=== PATIENT | female | born 1940 | race Caucasian/White ===

== ENCOUNTER 2021-02-17 10:06 | Outpatient (REF) | payer MEDICARE, SELFPAY ==
--- NOTE | ~2021-02-17 | MM_ITS ---
EXAMINATION: MM SCREENING DIGITAL BREAST TOMOSYNTHESIS, BILATERAL CLINICAL INFORMATION: Screening. Asymptomatic. Right lumpectomy for breast cancer 2007. COMPARISON: Mammography: 12/09/2019, 11/08/2018, 11/07/2017; outside exam 11/02/2016, 10/29/[address] ([facility]). TECHNIQUE: Digital breast tomosynthesis is performed in both the craniocaudal and mediolateral oblique views along with computer-aided detection (CAD). Synthesized 2D images are generated from the tomosynthesis. FINDINGS: There are scattered areas of fibroglandular density (ACR BI-RADS breast composition Category b). Right breast post therapy changes are similar to prior exams with mild reduced breast size, stable scarring with chronic hematoma/seroma at the lumpectomy site. There are surgical clips again seen right axilla. Neither breast shows interval mass or architectural abnormality or abnormal calcifications. There are chronic mildly prominent veins in the bilateral medial breasts and scattered bilateral round and vascular calcifications. There are no significant changes from prior exams. MM/MM tomosynthesis screening BI IMPRESSION: No mammographic evidence of malignancy. Chronic stable post therapy changes right breast. ASSESSMENT: BI-RADS 2: Benign RECOMMENDATION: Routine annual mammography screening. This patient's information was entered into a reminder system with a target due date for their next mammogram.
== END 2021-02-17 10:07 | disposition home or self-care (01) ==
LOC: HO.MAMMO 10:06
PROVIDERS: Visit Provider Surgery
DX: Z12.31 Encounter for screening mammogram for malignant neoplasm of breast (principal)
CPT/HCPCS: 77063; 77067

== ENCOUNTER → 2021-03-03 10:45 | Outpatient (BNVA) | payer MEDICARE, SELFPAY | PROVIDERS: PCP Internal Medicine; Visit Provider Surgery | DX: C50.911 Malignant neoplasm of unspecified site of right female breast (principal) | CPT/HCPCS: 99212 ==

== ENCOUNTER → 2022-03-04 10:52 | Outpatient (BNVA) | payer MEDICARE, SELFPAY | PROVIDERS: PCP Internal Medicine; Visit Provider Surgery | DX: C50.911 Malignant neoplasm of unspecified site of right female breast (principal) | CPT/HCPCS: 99212 ==

== ENCOUNTER 2022-03-11 10:38 | Outpatient (REF) | payer MEDICARE, SELFPAY ==
--- NOTE | ~2022-03-11 | MM_ITS ---
EXAMINATION: MM SCREENING DIGITAL BREAST TOMOSYNTHESIS, BILATERAL CLINICAL INFORMATION: Screening. Asymptomatic. Right breast cancer status post lumpectomy, 2007. COMPARISON: Mammography: 02/17/2021, 11/10/2019, 11/08/2018, 11/07/2017 TECHNIQUE: Digital breast tomosynthesis is performed in both the craniocaudal and mediolateral oblique views along with computer-aided detection (CAD). Synthesized 2D images are generated from the tomosynthesis. FINDINGS: There are scattered areas of fibroglandular density (ACR BI-RADS breast composition Category b). There is chronic minor scarring right breast with chronic seroma approximately 2.5 cm, similar to prior exams. Right axillary clips again noted. Neither breast shows interval mass or architectural abnormality. Again, there are scattered bilateral round and vascular calcifications. No abnormal calcifications. The skin contours are smooth. MM/MM tomosynthesis screening BI IMPRESSION: -No mammographic evidence of malignancy. -Post therapy changes right breast with chronic seroma. ASSESSMENT: BI-RADS 2: Benign RECOMMENDATION: Routine annual mammography screening. This patient's information was entered into a reminder system with a target due date for their next mammogram.
== END 2022-03-11 10:39 | disposition home or self-care (01) ==
LOC: HO.MAMMO 10:38
PROVIDERS: PCP Internal Medicine; Visit Provider Surgery
DX: Z12.31 Encounter for screening mammogram for malignant neoplasm of breast (principal); Z85.3 Personal history of malignant neoplasm of breast
CPT/HCPCS: 77063; 77067

== ENCOUNTER 2023-03-14 12:43 | Outpatient (REF) | payer MEDICARE, SELFPAY ==
--- NOTE | ~2023-03-14 | MM_ITS ---
EXAMINATION: MM SCREENING DIGITAL BREAST TOMOSYNTHESIS, BILATERAL CLINICAL INFORMATION: Screening. Asymptomatic. The patient was diagnosed and treated for breast cancer in 2008. COMPARISON: Mammography: This study is compared with prior exams dating back to 2018. TECHNIQUE: Digital breast tomosynthesis is performed in both the craniocaudal and mediolateral oblique views along with computer-aided detection (CAD). Synthesized 2D images are generated from the tomosynthesis. FINDINGS: There are scattered areas of fibroglandular density (ACR BI-RADS breast composition Category b). LEFT BREAST: There is an asymmetry in the 5:00 region of the left breast. Additional mammographic imaging of this finding is advised. This should include a full lateral view of the left breast, spot compression in the CC projection and MLO spot compression of the inferior half of the breast. The areas recommended for spot compression have been delineated on the images. Sonography of this region is at the discretion of the diagnostic radiologist. RIGHT BREAST: There are postsurgical changes in the 3 to 4:00 position of the right breast. These occur as benign, dystrophic ossifications in association with a benign, 26 mm seroma. There are no mammographic signs of malignancy at the current time. MM/MM tomosynthesis screening BI IMPRESSION: Left breast asymmetry warrants additional mammographic imaging. Sonography may be performed at the discretion of the diagnostic radiologist. Posttreatment changes of the right breast. No mammographic signs of malignancy of the right breast at the current time. ASSESSMENT: BI-RADS BI-RADS 0 - Incomplete: Needs additional Imaging. RECOMMENDATION: 1. Additional views of the left breast 2. Targeted ultrasound if warranted after review of the additional views. 3. Radiology department staff will contact the patient for additional imaging. Additional Imaging required This examination should not preclude the clinical evaluation of a suspicious palpable abnormality. This patient's information was entered into a reminder system with a target due date for their next mammogram.
== END 2023-03-14 12:44 | disposition home or self-care (01) ==
LOC: HO.MAMMO 12:43
PROVIDERS: PCP Internal Medicine; Visit Provider Surgery
DX: Z12.31 Encounter for screening mammogram for malignant neoplasm of breast (principal)
CPT/HCPCS: 77063; 77067

== ENCOUNTER → 2023-03-14 13:00 | Outpatient (BNV) | payer MEDICARE, SELFPAY | PROVIDERS: PCP Internal Medicine; Visit Provider Radiology Diagnostic Radiology | DX: Z12.31 Encounter for screening mammogram for malignant neoplasm of breast (principal) | CPT/HCPCS: 77063; 77067 ==

== ENCOUNTER 2023-03-25 09:46 | Outpatient (AMB) | payer MEDICARE, SELFPAY ==
--- NOTE | 2023-03-25 09:54 | A.OFFVIS_ITS ---
Intake Vital Signs 03/25/23 10:02 Height 5 ft 2 in Weight 140 lb 6 oz BMI 25.7 BP 160/80 H Blood Pressure Location Lt brachial Position Sitting Pulse 66 Intake Visit Reasons: YEARLY BREAST EXAMINATION Intake Note: Patient is seen in office fro yearly breast exam. Pt c/o: denies any concerns at the time of visit Boat Canvas Installer Required: No Raw Stock Dyeing Machine Tender: Raw Stock Dyeing Machine Tender Present Accompanied by: Self / Same As Patient Allergies amoxicillin Allergy (Unknown, Uncoded 03/25/23 10:06) Swelling IV Contrast Allergy (Unknown, Uncoded 03/25/23 10:06) Rash Latex Allergy (Unknown, Uncoded 03/25/23 10:06) Rash Medical Tape Allergy (Unknown, Uncoded 03/25/23 10:06) Rash sulfa drugs Allergy (Unknown, Uncoded 03/25/23 10:06) Rash HPI HPI Comments History of Present Illness Details Bella Hinton is a 82 year old female patient former patient of Dr. Lund presenting for a follow up breast examination. She underwent a right partial mastectomy with sentinel node biopsy in 2007 for an invasive lobular carcinoma with DCIS, ER/[place] positive, HER2 [place]ris negative. [place] nodes were negative for metastatic disease. She subsequently underwent radiation therapy which was completed on 04/01/2008. Patient refused aromatase inhibitor therapy. Her postoperative course was complicated by hematoma and she continues to feel a lump at the site of surgery. Mammogram of 02/17/2021 reveals no significant c hanges from her prior mammogram and no mammographic evidence of malignancy (BI- RADS 2: Benign). She underwent a yearly mammogram on 03/14/2023. Radiology report is not available at the time of this visit. She denies any new breast symptoms in either breast. [facility] Medical History Arthritis Invasive ductal carcinoma of right breast Surgical History History of hysterectomy History of incisional hernia repair History of right breast biopsy History of total mastectomy of right breast (2007) Family History Mother Breast cancer Social History Alcohol intake: never Patient Tobacco Use Status: Never used Tobacco Female Reproductive History Menstrual Age of Menarche: 11 Review of Systems Const All systems reviewed & are unremarkable except as noted in HPI and below GI Reports no additional complaints Denies nipple discharge Musc Reports no additional complaints Skin/Breast Denies breast swelling, Denies breast skin changes, Reports breast pain, Reports breast mass, Denies new lesions and Denies nipple discharge Physical Exam Vital Signs: Last Vital Signs Pulse 66 03/25/23 10:02 BP 160/80 H 03/25/23 10:02 BMI result Body Mass Index 25.7 Const General: cooperative, comfortable, no acute distress, well developed, alert and awake Orientation/consciousness: patient oriented x3 Limitations: no limitations Neck Lymphatic: no lymphadenopathy noted Chest Other: Incision in the upper inner quadrant right breast is clean and intact. There is a palpable area below the incision consistent with chronic scar tissue.No new palpable mass, skin change, nipple discharge, or enlarged lymph node is appreciated. Left breast is also normal with no palpable mass, skin change, nipple discharge, or enlarged lymph nodes. Chest/axillae images: 1. Scar from prior lumpectomy right breast Resp Effort & Inspection: normal respiratory effort Skin General skin exam: no rashes or lesions noted Neuro General: patient oriented x3 Extrem General: Yes no clubbing, cyanosis or edema Assessment & Plan Assessment & Plan (1) Invasive ductal carcinoma of right breast: Code(s): C50.911 - Malignant neoplasm of unspecified site of right female breast Plan 82-year-old female returning for routine breast examination following right breast cancer surgery. Examination today reveals chronic scarring in the right breast with no new suspicious findings. She underwent a routine annual screening mammogram on 03/14/2023; unfortunately the radiology report is not available to time of this dictation. I suggested a follow-up in 1 year for routine breast examination. She is welcome to call sooner for any new concerns. Coding Level of Care Code Est Pt Level 3 (51511) Diagnoses Invasive ductal carcinoma of right breast C50.911
[2023-03-25 10:02] VITALS: BP 160/80; PULSE 66; BMI 25.7
== END 2023-03-25 10:25 | disposition home or self-care (01) ==
LOC: HO.HGS 09:46
PROVIDERS: PCP Internal Medicine; Visit Provider Surgery
DX: Z85.3 Personal history of malignant neoplasm of breast (principal)
CPT/HCPCS: 99213

== ENCOUNTER → 2023-03-25 09:46 | Outpatient (BNVA) | payer MEDICARE, SELFPAY | PROVIDERS: PCP Internal Medicine; Visit Provider Surgery | DX: C50.911 Malignant neoplasm of unspecified site of right female breast (principal) | CPT/HCPCS: 99212 ==

== ENCOUNTER 2023-04-29 14:23 | Outpatient (REF) | payer MEDICARE, SELFPAY ==
--- NOTE | ~2023-04-29 | MM_ITS ---
EXAMINATION: MM DIAGNOSTIC DIGITAL BREAST TOMOSYNTHESIS, LEFT CLINICAL INFORMATION: Evaluate 5:00 asymmetry seen on CC projections screening exam, mid depth. Localizes inferiorly on tomographic images. COMPARISON: Mammography: 03/14/2023, 03/11/2022, and dating back to 2014. TECHNIQUE: Digital breast tomosynthesis is performed. 2D images are generated from the tomosynthesis. The following views are obtained: 3-D small paddle spot CC view, and large paddle 3-D spot CC and MLO views. FINDINGS: There are scattered areas of fibroglandular density (ACR BI-RADS breast composition Category b). Additional views show complete effacement of the central inferior asymmetry, findings consistent with summation artifact. There is no persistent mass, or area of architectural distortion. Extensive vascular calcifications are noted. Results were provided to the patient at time of visit by the technologist. MM/MM tomosynthesis added views L IMPRESSION: No persistent findings suspicious of malignancy. Benign findings. Recommend the patient resume routine annual screening mammography. ASSESSMENT: BI-RADS BI-RADS 2 - Benign Findings RECOMMENDATION: 1 year F/U This patient's information was entered into a reminder system with a target due date for their next mammogram.
== END 2023-04-29 14:24 | disposition home or self-care (01) ==
LOC: HO.MAMMO 14:23
PROVIDERS: PCP Internal Medicine; Visit Provider Surgery
DX: N64.89 Other specified disorders of breast (principal)
CPT/HCPCS: 77061; 77065

== ENCOUNTER → 2023-04-29 14:30 | Outpatient (BNV) | payer MEDICARE, SELFPAY | PROVIDERS: PCP Internal Medicine; Visit Provider Radiology Diagnostic Radiology | DX: N64.89 Other specified disorders of breast (principal) | CPT/HCPCS: 77061; 77065 ==

== ENCOUNTER 2024-03-26 12:29 | Outpatient (REF) | payer MEDICARE, SELFPAY ==
--- NOTE | ~2024-03-26 | MM_ITS ---
EXAMINATION: MM SCREENING DIGITAL BREAST TOMOSYNTHESIS, BILATERAL CLINICAL INFORMATION: Screening. Asymptomatic. Patient has a history of treated right breast cancer. COMPARISON: Mammography: This study is compared with prior exams dating back to TECHNIQUE: Digital breast tomosynthesis is performed in both the craniocaudal and mediolateral oblique views along with computer-aided detection (CAD). Synthesized 2D images are generated from the tomosynthesis. FINDINGS: There are scattered areas of fibroglandular density (ACR BI-RADS breast composition Category b). In the lower inner quadrant of the left breast, at a middle depth, there is a focal asymmetry which warrants additional mammographic and targeted sonographic imaging. In the right breast, there are no significant masses, abnormal calcifications, or other abnormalities. There is right-sided postsurgical and posttreatment change. There are no suspicious findings in the right breast. MM/MM tomosynthesis screening BI IMPRESSION: Focal asymmetry of the right breast warrants additional mammographic and targeted sonographic evaluation. Postsurgical changes of the right breast. No mammographic signs of malignancy right breast. ASSESSMENT: BI-RADS BI-RADS 0 - Incomplete: Needs additional Imaging. RECOMMENDATION: 1. Additional views of the left breast 2. Targeted ultrasound is also advised. 3. Radiology department staff will contact the patient for additional imaging. Additional Imaging required This examination should not preclude the clinical evaluation of a suspicious palpable abnormality. This patient's information was entered into a reminder system with a target due date for their next mammogram.
== END 2024-03-26 12:30 | disposition home or self-care (01) ==
LOC: HO.MAMMO 12:29
PROVIDERS: Absent Provider Surgery; PCP Internal Medicine; Visit Provider Internal Medicine
DX: Z12.31 Encounter for screening mammogram for malignant neoplasm of breast (principal)
CPT/HCPCS: 77063; 77067

== ENCOUNTER → 2024-03-26 13:00 | Outpatient (BNV) | payer MEDICARE, SELFPAY | PROVIDERS: Absent Provider Surgery; PCP Internal Medicine; Visit Provider Radiology Diagnostic Radiology | DX: Z12.31 Encounter for screening mammogram for malignant neoplasm of breast (principal) | CPT/HCPCS: 77063; 77067 ==

== ENCOUNTER 2024-04-05 13:47 | Outpatient (AMB) | payer MEDICARE, OTHER, SELFPAY ==
--- NOTE | 2024-04-05 13:42 | MHC.OFFVIS ---
Vital Signs 04/05/24 13:58 Height 5 ft 2 in Weight 138 lb 14.259 oz BMI 25.4 Pulse 62 Intake Visit Reasons: Yearly breast exam Intake Note: Patient is seen in office for yearly breast exam. Pt c/o: denies any concerns regarding the breast mm:03/26/24 Process Manufacturing Engineer Required: No Agricultural Engineering Technologist: Agricultural Engineering Technologist Present Accompanied by: Self / Same As Patient Allergies amoxicillin Allergy (Unknown, Uncoded 04/05/24 13:58) Swelling IV Contrast Allergy (Unknown, Uncoded 04/05/24 13:58) Rash Latex Allergy (Unknown, Uncoded 04/05/24 13:58) Rash Medical Tape Allergy (Unknown, Uncoded 04/05/24 13:58) Rash sulfa drugs Allergy (Unknown, Uncoded 04/05/24 13:58) Rash HPI Comments Details: Bella Hinton is a 83 year old female patient former patient of Dr. Lund presenting for a follow up breast examination. She underwent a right partial mastectomy with sentinel node biopsy in 2007 for an invasive lobular carcinoma with DCIS, ER/[place] positive, HER2 Idris negative. [place] nodes were negative for metastatic disease. She subsequently underwent radiation therapy which was completed on 04/01/2008. Patient refused aromatase inhibitor therapy. Her postoperative course was complicated by hematoma and she continues to feel a lump at the site of surgery. Mammogram of 03/26/2024 revealed a focal asymmetry on the left breast for which additional imaging is required (BI-RADS 0). Patient was informed of the finding in the left breast and arrangements are being made follow-up imaging at the [facility]. She continues to feel a lump in the right breast at the site of the lumpectomy. She denies any new breast symptoms. [facility] Medical History Invasive ductal carcinoma of right breast Arthritis Surgical History History of total mastectomy of right breast (2007) History of right breast biopsy History of incisional hernia repair History of hysterectomy Family History Mother Breast cancer Social History Alcohol intake: never Patient Tobacco Use Status: Never used Tobacco Female Reproductive History Menstrual Age of Menarche: 11 Review of Systems Const All systems reviewed & are unremarkable except as noted in HPI and below GI Reports no additional complaints Denies nipple discharge Musc Reports no additional complaints Skin/Breast Denies breast swelling, Denies breast skin changes, Reports breast pain, Reports breast mass, Denies new lesions and Denies nipple discharge Physical Exam Const General: cooperative, comfortable, no acute distress, well developed, alert and awake Orientation/consciousness: patient oriented x3 Limitations: no limitations Neck Lymphatic: no lymphadenopathy noted Chest Other: Incision in the upper inner quadrant right breast is clean and intact. There is a palpable area below the incision consistent with chronic scar tissue .No new palpable mass, skin change, nipple discharge, or enlarged lymph node is appreciated. Left breast is also normal with no palpable mass, skin change, nipple discharge, or enlarged lymph nodes. Chest/axillae images: 1. Palpable scar below lumpectomy scar Resp Effort & Inspection: normal respiratory effort Skin General skin exam: no rashes or lesions noted Neuro General: patient oriented x3 Extrem General: Yes no clubbing, cyanosis or edema Assessment & Plan Assessment & Plan (1) Invasive ductal carcinoma of right breast: Code(s): C50.911 - Malignant neoplasm of unspecified site of right female breast Category: Medical Plan 83-year-old female returning for routine breast examination following right breast cancer surgery. Examination today reveals chronic scarring in the right breast with no new suspicious findings. She underwent a routine annual screening mammogram on 03/26/2024. Additional imaging is required of the left breast due to a focal asymmetry. [facility] She will follow-up in 1 year for routine breast examination, sooner as dictated by the mammograms. Coding Level of Care Code Est Pt Level 3 (75168) Diagnoses Invasive ductal carcinoma of right breast C50.911
[2024-04-05 13:58] VITALS: PULSE 62; BMI 25.4
== END 2024-04-05 14:27 | disposition home or self-care (01) ==
PROVIDERS: PCP Internal Medicine; Visit Provider Surgery
DX: Z85.3 Personal history of malignant neoplasm of breast (principal)
CPT/HCPCS: 99213

== ENCOUNTER → 2024-04-05 13:47 | Outpatient (BNVA) | payer MEDICARE, SELFPAY | PROVIDERS: PCP Internal Medicine; Visit Provider Surgery | DX: Z85.3 Personal history of malignant neoplasm of breast (principal); Z17.0 Estrogen receptor positive status [ER+]; Z90.11 Acquired absence of right breast and nipple | CPT/HCPCS: 99212 ==

== ENCOUNTER 2024-04-17 10:47 | Outpatient (REF) | payer MEDICARE, OTHER, SELFPAY ==
--- NOTE | ~2024-04-17 | US_ITS ---
EXAMINATION: MM DIAGNOSTIC DIGITAL BREAST TOMOSYNTHESIS, LEFT US BREAST LIMITED, LEFT MAMMOGRAPHY: CLINICAL INFORMATION: Callback for irregular focal mass in the left breast 7:00 axis, middle one third seen on screening exam 03/26/2024. COMPARISON: Mammography: 03/26/2024, 04/29/2023, 03/14/2023, 03/11/2022, 02/17/2021, and dating back to 2014. TECHNIQUE: Digital breast tomosynthesis is performed consisting of full-field 3-D left ML view, as well as 3-D spot compression left MLO and left CC views. Computer-aided diagnosis was used for this study. FINDINGS: There are scattered areas of fibroglandular density (ACR BI-RADS breast composition Category b). There is an irregular mass with indistinct margins and high density in the 7:00 axis of the left breast, middle one third. This measures up to 2.1 cm. It has surrounding mild desmoplasia. No abnormal lymph nodes in the left axilla. No skin changes. No additional suspicious abnormalities left breast. ULTRASOUND: CLINICAL INFORMATION: As above. COMPARISON: No prior. TECHNIQUE: Targeted sonographic evaluation was performed using a high frequency linear transducer. Selected archived documentation. FINDINGS: LEFT BREAST: There is a markedly irregular hypoechoic shadowing mass at the 7:00 axis left breast, 4 cm from the nipple, measuring 2.1 x 1.8 x 2.1 cm approximately. This demonstrates no significant internal color Doppler flow, however scant peripheral Doppler flow. There are fatty echogenic changes surrounding the mass, with mild sonographic spiculation. Finding is suspicious, and ultrasound-guided biopsy recommended. Imaging of the left axilla demonstrates no pathologic appearing lymph nodes. US/US breast LT limited mamm only IMPRESSION: -Suspicious irregular mass left breast 7:00 axis, 4 cm from the nipple, measuring 2.1 x 1.8 x 2.1 cm approximately. Recommend ultrasound-guided biopsy. -Findings and recommendations discussed with the patient in detail. OVERALL ASSESSMENT: Mammography: BI-RADS 4 - Suspicious finding Ultrasound: BI-RADS 4 - Suspicious finding RECOMMENDATION: Biopsy recommended Results were provided to the patient at time of visit by the technologist. This patient's information was entered into a reminder system with a target due date for their next mammogram.
== END 2024-04-17 10:48 | disposition home or self-care (01) ==
LOC: HO.MAMMO 10:47
PROVIDERS: PCP Internal Medicine; Visit Provider Surgery
DX: Z85.3 Personal history of malignant neoplasm of breast (principal)
CPT/HCPCS: 76642; 77061; 77065

== ENCOUNTER → 2024-04-17 11:00 | Outpatient (BNV) | payer MEDICARE, OTHER, SELFPAY | PROVIDERS: PCP Internal Medicine; Visit Provider Radiology Diagnostic Radiology | DX: R92.8 Other abnormal and inconclusive findings on diagnostic imaging of breast (principal) | CPT/HCPCS: 76642; 77065; G0279 ==

== ENCOUNTER 2024-05-17 09:37 | Outpatient (REF) | payer MEDICARE, OTHER, SELFPAY ==
--- NOTE | ~2024-05-17 | US_ITS ---
EXAMINATION: MM DIAGNOSTIC DIGITAL BREAST TOMOSYNTHESIS, PROCEDURE: ULTRASOUND-GUIDED bilateral BREAST BIOPSY CLINICAL INFORMATION: Bilateral breast masses left breast mass was called back from screening, recommended for biopsy. COMPARISON: Comparison is made with prior imaging. TECHNIQUE: The details of the procedure, as well as the risks, benefits, and alternatives to the procedure were explained to the patient in detail and all of her questions were answered, after which, written informed consent was obtained. PROCEDURE: Prior to the procedure, sonography revealed a solid irregular mass in the right breast at 2:00, and a solid irregular mass as previously seen at 7:00 in the left breast. A time-out was performed, the masses intended for biopsy were targeted and the skin of the left and right breast was then prepped and draped in the usual sterile fashion. Left: Using sonographic guidance, sterile technique, and 1% lidocaine without epinephrine for local anesthesia, a total of 4 cores were obtained through the targeted area with a 12-gauge vacuum-assisted Celero core biopsy device. At the completion of tissue sampling, a single butterfly metallic clip was deposited at the biopsy site. Right: Using sonographic guidance, sterile technique, and 1% lidocaine without epinephrine for local anesthesia, a total of 5 cores were obtained through the targeted area with a 12-gauge vacuum-assisted Celero core biopsy device. At the completion of tissue sampling, a single butterfly metallic clip was deposited at the biopsy site. An appropriate sample was obtained. The postprocedure 2-view direct digital mammogram reveals satisfactory positioning of the biopsy clips bilaterally. The patient tolerated the procedure well and, after assuring adequate hemostasis, was discharged in good condition after reviewing postbiopsy breast care instructions. Final pathology results are pending. US/US breast ndl core biopsy LT IMPRESSION: 1. Uncomplicated sonographically-guided core biopsy of the left and right breast. The 2-view direct digital postprocedure mammogram reveals satisfactory positioning of the biopsy clips. 2. Final pathology results are pending. A separate report with final recommendations will be issued once these results are made available. Electronically signed by: Jada Brewer DO 05/17/2024 03:16 PM EDT
--- NOTE | ~2024-05-17 | US_ITS ---
EXAMINATION: MM DIAGNOSTIC DIGITAL BREAST TOMOSYNTHESIS, PROCEDURE: ULTRASOUND-GUIDED bilateral BREAST BIOPSY CLINICAL INFORMATION: Bilateral breast masses left breast mass was called back from screening, recommended for biopsy. COMPARISON: Comparison is made with prior imaging. TECHNIQUE: The details of the procedure, as well as the risks, benefits, and alternatives to the procedure were explained to the patient in detail and all of her questions were answered, after which, written informed consent was obtained. PROCEDURE: Prior to the procedure, sonography revealed a solid irregular mass in the right breast at 2:00, and a solid irregular mass as previously seen at 7:00 in the left breast. A time-out was performed, the masses intended for biopsy were targeted and the skin of the left and right breast was then prepped and draped in the usual sterile fashion. Left: Using sonographic guidance, sterile technique, and 1% lidocaine without epinephrine for local anesthesia, a total of 4 cores were obtained through the targeted area with a 12-gauge vacuum-assisted Celero core biopsy device. At the completion of tissue sampling, a single butterfly metallic clip was deposited at the biopsy site. Right: Using sonographic guidance, sterile technique, and 1% lidocaine without epinephrine for local anesthesia, a total of 5 cores were obtained through the targeted area with a 12-gauge vacuum-assisted Celero core biopsy device. At the completion of tissue sampling, a single butterfly metallic clip was deposited at the biopsy site. An appropriate sample was obtained. The postprocedure 2-view direct digital mammogram reveals satisfactory positioning of the biopsy clips bilaterally. The patient tolerated the procedure well and, after assuring adequate hemostasis, was discharged in good condition after reviewing postbiopsy breast care instructions. Final pathology results are pending. US/US breast ndl core biopsy RT IMPRESSION: 1. Uncomplicated sonographically-guided core biopsy of the left and right breast. The 2-view direct digital postprocedure mammogram reveals satisfactory positioning of the biopsy clips. 2. Final pathology results are pending. A separate report with final recommendations will be issued once these results are made available. Electronically signed by: Jada Brewer DO 05/17/2024 03:16 PM EDT
--- NOTE | ~2024-05-17 | US_ITS ---
EXAMINATION: MM DIAGNOSTIC DIGITAL BREAST TOMOSYNTHESIS, PROCEDURE: ULTRASOUND-GUIDED bilateral BREAST BIOPSY CLINICAL INFORMATION: Bilateral breast masses left breast mass was called back from screening, recommended for biopsy. COMPARISON: Comparison is made with prior imaging. TECHNIQUE: The details of the procedure, as well as the risks, benefits, and alternatives to the procedure were explained to the patient in detail and all of her questions were answered, after which, written informed consent was obtained. PROCEDURE: Prior to the procedure, sonography revealed a solid irregular mass in the right breast at 2:00, and a solid irregular mass as previously seen at 7:00 in the left breast. A time-out was performed, the masses intended for biopsy were targeted and the skin of the left and right breast was then prepped and draped in the usual sterile fashion. Left: Using sonographic guidance, sterile technique, and 1% lidocaine without epinephrine for local anesthesia, a total of 4 cores were obtained through the targeted area with a 12-gauge vacuum-assisted Celero core biopsy device. At the completion of tissue sampling, a single butterfly metallic clip was deposited at the biopsy site. Right: Using sonographic guidance, sterile technique, and 1% lidocaine without epinephrine for local anesthesia, a total of 5 cores were obtained through the targeted area with a 12-gauge vacuum-assisted Celero core biopsy device. At the completion of tissue sampling, a single butterfly metallic clip was deposited at the biopsy site. An appropriate sample was obtained. The postprocedure 2-view direct digital mammogram reveals satisfactory positioning of the biopsy clips bilaterally. The patient tolerated the procedure well and, after assuring adequate hemostasis, was discharged in good condition after reviewing postbiopsy breast care instructions. Final pathology results are pending. US/US breast RT limited IMPRESSION: 1. Uncomplicated sonographically-guided core biopsy of the left and right breast. The 2-view direct digital postprocedure mammogram reveals satisfactory positioning of the biopsy clips. 2. Final pathology results are pending. A separate report with final recommendations will be issued once these results are made available. Electronically signed by: Jada Brewer DO 05/17/2024 03:16 PM EDT Workstation: [id number]
== END 2024-05-17 09:38 | disposition home or self-care (01) ==
LOC: HO.MAMMO 09:37
PROVIDERS: Pathology Cytopathology; PCP Internal Medicine; Visit Provider Surgery
DX: C50.312 Malignant neoplasm of lower-inner quadrant of left female breast (principal); N63.12 Unspecified lump in the right breast, upper inner quadrant
CPT/HCPCS: 19083; 36415; 76642; 77062; 77066; 88305; 88341; 88342; 88360; 88374; A4648; C1894

== ENCOUNTER → 2024-05-17 10:00 | Outpatient (BNV) | payer MEDICARE, OTHER, SELFPAY | PROVIDERS: PCP Internal Medicine; Visit Provider Internal Medicine | DX: C50.312 Malignant neoplasm of lower-inner quadrant of left female breast (principal); N63.12 Unspecified lump in the right breast, upper inner quadrant | CPT/HCPCS: 19083; 19084; 77066; G0279 ==

== ENCOUNTER 2024-05-22 10:57 | Outpatient (AMB) | payer MEDICARE, SELFPAY ==
--- NOTE | 2024-05-22 11:00 | A.OFFVIS_ITS ---
Vital Signs 05/22/24 11:12 Height 5 ft 2 in Weight 138 lb 6 oz BMI 25.3 BP 189/79 H Blood Pressure Location Lt brachial Position Sitting Pulse 67 Intake Visit Reasons: follow up breast bx Intake Note: Patient is seen in office for ultrasound biopsy results, following bilateral breast masses. Pt c/o: area was red due to allergy to tape, no other concerns Supervisor Plate Forming Required: No Accompanied by: Family/Other Allergies amoxicillin Allergy (Unknown, Uncoded 05/22/24 11:12) Swelling IV Contrast Allergy (Unknown, Uncoded 05/22/24 11:12) Rash Latex Allergy (Unknown, Uncoded 05/22/24 11:12) Rash Medical Tape Allergy (Unknown, Uncoded 05/22/24 11:12) Rash sulfa drugs Allergy (Unknown, Uncoded 05/22/24 11:12) Rash Medication List - Last Reconciled 05/22/24 by Alistair Tyler MD acetaminophen 1,000 mg PO TID aspirin 81 mg PO DAILY cyanocobalamin (vitamin B-12) 100 mcg PO DAILY docusate sodium 100 mg PO BID PRN ergocalciferol (vitamin D2) 1,250 mcg PO QWEEK HPI Comments Details: Bella Hinton is a 83 year old female patient former patient of Dr. Lund returning following a bilateral ultrasound-guided core biopsy. 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 [place] nodes were negative for metastatic disease. She subsequently underwent radiation therapy which was completed on 04/01/2008. Patient refused aromatase inhibitor therapy. Her postoperative course was complicated by hematoma and she continues to feel a lump at the site of surgery. Mammogram of 03/26/2024 revealed a focal asymmetry on the left breast for which additional imaging is required (BI-RADS 0). Subsequent follow-up images ultrasound confirmed bilateral suspicious findings. She subsequently underwent ultrasound-guided core biopsy of bilateral breast lesions on 05/17/2024. Subsequent pathology of the right breast revealed scar tissue however the left breast revealed invasive breast carcinoma with mixed lobular and ductal features, grade 3, ER/ID positive, HER2 Idris equivocal, FISH pending, Ki-67 high. A copy of the report was provided to the patient and her family. [facility] Medical History (Updated 05/22/24 @ 11:50 by Alistair Tyler MD) Invasive ductal carcinoma of right breast Arthritis Surgical History History of total mastectomy of right breast (2007) History of right breast biopsy History of incisional hernia repair History of hysterectomy Family History Mother Breast cancer Social History Alcohol intake: never Patient Tobacco Use Status: Never used Tobacco Female Reproductive History Menstrual Age of Menarche: 11 Review of Systems Const All systems reviewed & are unremarkable except as noted in HPI and below GI Reports no additional complaints Denies nipple discharge Musc Reports no additional complaints Skin/Breast Denies breast swelling, Denies breast skin changes, Reports breast pain, Reports breast mass, Denies new lesions and Denies nipple discharge Physical Exam Vital Signs: Last Vital Signs Pulse 67 05/22/24 11:12 BP 189/79 H 05/22/24 11:12 BMI result Body Mass Index 25.3 Const General: cooperative, comfortable, no acute distress, well developed, alert and awake Orientation/consciousness: patient oriented x3 Limitations: no limitations Neck Lymphatic: no lymphadenopathy noted Chest Other: Incision in the upper inner quadrant right breast is clean and intact. There is surrounding ecchymosis from her prior ultrasound-guided core biopsy. No palpable hematoma is appreciated. No other skin ulceration is appreciated. There is a palpable area below the incision consistent with chronic scar tissue .No new palpable mass, skin change, nipple discharge, or enlarged lymph node is appreciated. Left breast is also normal with no palpable mass, nipple discharge, or enlarged lymph nodes. There is a small area of ecchymosis at the biopsy site in the lower inner quadrant with no palpable hematoma. Resp Effort & Inspection: normal respiratory effort GI Inspection: Yes normal to inspection Skin General skin exam: no rashes or lesions noted Neuro General: patient oriented x3 Extrem General: Yes no clubbing, cyanosis or edema Assessment & Plan Assessment & Plan (1) Invasive ductal carcinoma of left breast: Code(s): C50.912 - Malignant neoplasm of unspecified site of left female breast Category: Medical (2) Invasive ductal carcinoma of right breast: Code(s): C50.911 - Malignant neoplasm of unspecified site of right female breast Category: Medical Plan 83-year-old female patient with a prior history of right breast carcinoma treated by Dr. Lund now returning with a new left breast invasive carcinoma with both lobular and ductal features, grade 3, ER/ID positive, HER2 Idris equivocal. I reviewed the pathology results with the patient and her family. Recommendations include left breast lumpectomy with localizer and left axillary sentinel node biopsy. After a review of the procedure, risks, and alternatives, she consents to the procedure. She will be scheduled as a short-stay surgery at her earliest convenience. She understands that following this procedure she will be referred back to Medical Oncology at [facility] for further evaluation discussion of adjuvant treatment options. Coding Level of Care Code Est Pt Level 4 (69821) Diagnoses Invasive ductal carcinoma of left breast C50.912 Invasive ductal carcinoma of right breast C50.911
[2024-05-22 11:12] VITALS: BP 189/79; PULSE 67; BMI 25.3
== END 2024-05-22 11:40 | disposition home or self-care (01) ==
PROVIDERS: PCP Internal Medicine; Visit Provider Surgery
DX: C50.912 Malignant neoplasm of unspecified site of left female breast (principal); C50.911 Malignant neoplasm of unspecified site of right female breast
CPT/HCPCS: 99214

== ENCOUNTER → 2024-05-22 10:57 | Outpatient (BNVA) | payer MEDICARE, SELFPAY | PROVIDERS: PCP Internal Medicine; Visit Provider Surgery | DX: C50.912 Malignant neoplasm of unspecified site of left female breast (principal); C50.911 Malignant neoplasm of unspecified site of right female breast; Z90.11 Acquired absence of right breast and nipple; Z17.0 Estrogen receptor positive status [ER+]; Z92.3 Personal history of irradiation | CPT/HCPCS: 99212 ==

== ENCOUNTER 2024-06-05 09:37 | Outpatient (REF) | payer MEDICARE, SELFPAY ==
--- NOTE | ~2024-06-05 | US_ITS ---
EXAMINATION: MM MAMMOGRAM GUIDED RFID LOCALIZATION BREAST, LEFT CLINICAL INFORMATION: Left breast 7:00 axis IDC grade 3, marked by butterfly clip, estimated size 2.1 x 1.8 x 2.1 cm by sonography, for RFID localization. COMPARISON: Left breast ultrasound-guided needle biopsy with diagnostic mammography 05/17/2024. TECHNIQUE NEEDLE LOC: Proper informed consent is obtained from the patient after discussion of the procedure, potential risks and complications, and alternatives including declining the procedure today. Patient was given an opportunity for questions. The patient appeared to understand. The patient consented to the procedure and signed the consent form. Timeout was performed. The patient did take a baby aspirin this a.m., raising risk for bleeding. Patient accepted this risk. Procedure was technically quite difficult due to very floppy breast tissue and inability of the patient to tolerate lying flat due to shoulder and back arthritis. GUIDANCE: Sonography. APPROACH: Lateral Medial. TARGET: 7:00 axis mass left breast marked by butterfly shaped clip. ANESTHESIA: carbonated lidocaine 1%: 4 mL. LOCALIZATION SYSTEM: [employer] LOCallizer Wire-Free Guidance System with 7 cm 12g needle applicator. RADIOFREQUENCY TAG: ID # [id number] DERMATOTOMY: Single 1 mm skin-juve dermatotomy performed. RF Tag ID confirmed with LOCalizer Guidance System prior to placement. The skin is prepped and local anesthesia administered. The needle is positioned and RFID tag deployed. Final images demonstrate the LOCalizer RF tag to reside within the posterior superior aspect of the mass, directly abutting the biopsy clip. This is well positioned. The patient tolerated the procedure well and had no immediate complications. Small amount of bleeding was present at at the needle puncture site, of which was resolved with direct pressure. Dressing placed and home instructions reviewed. US/US breast needle loc LT IMPRESSION: -Status post left breast RFID localization using sonography was subsequent mammography. -Final CC and ML views are appropriately labeled for OR reference. Electronically signed by: Kaveh Kahn MD 06/05/2024 11:25 AM EDT
[2024-06-05] MEDS: Lidocaine HCl 1 % 20 ML VIAL 3 ML SUBCUT (11:21)
[2024-06-05] MEDS: Sodium Bicarbonate 8.4% 50 MEQ/50 ML VIAL SUBCUT (11:21)
== END 2024-06-05 09:38 | disposition home or self-care (01) ==
LOC: HO.MAMMO 09:37
PROVIDERS: PCP Internal Medicine; Visit Provider Surgery
DX: C50.312 Malignant neoplasm of lower-inner quadrant of left female breast (principal)
CPT/HCPCS: 19285; 77065; C1819

== ENCOUNTER → 2024-06-05 10:05 | Outpatient (BNV) | payer MEDICARE, SELFPAY | PROVIDERS: PCP Internal Medicine; Visit Provider Radiology Diagnostic Radiology | DX: C50.312 Malignant neoplasm of lower-inner quadrant of left female breast (principal) | CPT/HCPCS: 19083; 77065 ==

== ENCOUNTER 2024-06-12 06:12 | Day surgery (SDC) | payer MEDICARE, SELFPAY ==
[2024-06-01 09:45] VITALS: BMI 25.2
--- NOTE | 2024-06-11 08:38 | P.CONAN_ITS ---
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) Osteoarthritis Lumbar stenosis Thyroid nodule History of diverticulosis Asthma Hx of radiation therapy Invasive ductal carcinoma of right breast Arthritis Family History Family History Mother Breast cancer Surgical History Surgical History (Updated 06/01/24 @ 09:48 by Julianna Bower, OMID) Hx of cataract extraction Hx of umbilical hernia repair Hx of kyphoplasty Hx of total knee replacement (~2020) History of total mastectomy of right breast (2007) History of right breast biopsy History of incisional hernia repair History of hysterectomy Social History Social History Are you a primary director of patient care to a significant other at home: No Do you presently have visiting nurse or other home services: No Alcohol intake: never Patient Tobacco Use Status: Never used Tobacco Use of substances other than those prescribed or required for medical reasons: No Have you been hit, kicked, punched, or otherwise hurt by someone within the past year? If so, by whom?: No Are you DNR?: No Advance Directives: No Advance Directives Information Provided: Yes Advance Directives on File: No Recently lost weight without trying: No Nutrition Risks: Surgical patient >75years Poor oral hygiene: No Meds Allergies Allergy/AdvReac Type Severity Reaction Status Date / Time IV Contrast Allergy Severe Rash/swelli Uncoded 06/01/24 09:42 ng Latex Allergy Severe Rash/bliste Uncoded 06/01/24 09:42 rs Medical Tape Allergy Severe Rash/bliste Uncoded 06/01/24 09:42 rs amoxicillin Allergy Intermediate Swelling Uncoded 06/01/24 09:42 sulfa drugs Allergy Intermediate Rash Uncoded 06/01/24 09:42 Home Medications ?Medication ?Instructions ?Recorded ?Confirmed ?Last Taken ?Type acetaminophen 500 mg tablet 1,000 mg PO TID PRN Pain 03/04/22 06/01/24 Unknown History docusate sodium 100 mg capsule 100 mg PO BID PRN constipation 03/04/22 06/01/24 Unknown History aspirin 81 mg tablet,delayed 81 mg PO DAILY 03/25/23 06/01/24 06/12/24 History release cyanocobalamin (vitamin B-12) 100 100 mcg PO DAILY 03/25/23 06/01/24 Unknown History mcg tablet ergocalciferol (vitamin D2) 1,250 1,250 mcg PO QWEEK 03/25/23 06/01/24 Unknown History mcg (50,000 unit) capsule biotin 10 mg-collagen 50 1 cap PO 06/01/24 Unknown History mg-keratin 500 fo-jjraswplpxw-kqlroxy capsule calcium carbonate 600 mg-vitamin 1 tab PO DAILY 06/01/24 06/01/24 Unknown History D3 5 mcg (200 unit) tablet diphenhydramine 25 1 tab PO BEDTIME PRN Insomnia 06/01/24 06/01/24 Unknown History mg-acetaminophen 500 mg tablet (Tylenol PM Extra Strength) lisinopril 10 mg tablet 10 mg PO DAILY 06/01/24 06/01/24 Unknown History omega 4-rvt-dti-fish oil 1,000 mg 1 cap PO TID 06/01/24 06/01/24 Unknown History (120 mg-180 mg) capsule (Fish Oil) solifenacin 5 mg tablet 5 mg PO BEDTIME 06/01/24 06/01/24 Unknown History Exam Height,Weight and Vital Signs: Height 5 ft 2 in Weight 62.596 kg Pertinent Lab Results Pertinent Lab Results: BMP 02/2024 from PCP note WNL Narrative Narrative: EKG 2022 from [facility] Ventricular Rate: 64 BPM Atrial Rate: 64 BPM P-R Interval: 190 ms QRS Duration: 96 ms Q-T Interval: 430 ms QTC Calculation(Bazett): 443 ms P Mcallen: 59 degrees R Mcallen: -21 degrees T Mcallen: 35 degrees Normal sinus rhythm Normal ECG When compared with ECG of 11-DEC-2022 16:27, Vent. 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) Osteoarthritis Lumbar stenosis Thyroid nodule History of diverticulosis Asthma Hx of radiation therapy Invasive ductal carcinoma of right breast Arthritis Family History Family History Mother Breast cancer Family history of problems with anesthesia: No Surgical History Surgical History (Updated 06/01/24 @ 09:48 by Julianna Bower RN) Hx of cataract extraction Hx of umbilical hernia repair Hx of kyphoplasty Hx of total knee replacement (~2020) History of total mastectomy of right breast (2007) History of right breast biopsy History of incisional hernia repair History of hysterectomy History of Problems with Anesthesia: No Social History Social History Are you a primary director of patient care to a significant other at home: No Do you presently have visiting nurse or other home services: No Alcohol intake: never Patient Tobacco Use Status: Never used Tobacco Use of substances other than those prescribed or required for medical reasons: No Have you been hit, kicked, punched, or otherwise hurt by someone within the past year? If so, by whom?: No Are you DNR?: No Advance Directives: No Advance Directives Information Provided: Yes Advance Directives on File: No Recently lost weight without trying: No Nutrition Risks: Surgical patient >75years Poor oral hygiene: No Meds Allergies Allergy/AdvReac Type Severity Reaction Status Date / Time IV Contrast Allergy Severe Rash/swelli Uncoded 06/01/24 09:42 ng Latex Allergy Severe Rash/bliste Uncoded 06/01/24 09:42 rs Medical Tape Allergy Severe Rash/bliste Uncoded 06/01/24 09:42 rs amoxicillin Allergy Intermediate Swelling Uncoded 06/01/24 09:42 sulfa drugs Allergy Intermediate Rash Uncoded 06/01/24 09:42 Home Medications ?Medication ?Instructions ?Recorded ?Confirmed ?Last Taken ?Type acetaminophen 500 mg tablet 1,000 mg PO TID PRN Pain 03/04/22 06/01/24 Unknown History docusate sodium 100 mg capsule 100 mg PO BID PRN constipation 03/04/22 06/01/24 Unknown History aspirin 81 mg tablet,delayed 81 mg PO DAILY 03/25/23 06/01/24 06/12/24 History release cyanocobalamin (vitamin B-12) 100 100 mcg PO DAILY 03/25/23 06/01/24 Unknown History mcg tablet ergocalciferol (vitamin D2) 1,250 1,250 mcg PO QWEEK 03/25/23 06/01/24 Unknown History mcg (50,000 unit) capsule biotin 10 mg-collagen 50 1 cap PO 06/01/24 Unknown History mg-keratin 500 jv-wznhevcutje-vabkorv capsule calcium carbonate 600 mg-vitamin 1 tab PO DAILY 06/01/24 06/01/24 Unknown History D3 5 mcg (200 unit) tablet diphenhydramine 25 1 tab PO BEDTIME PRN Insomnia 06/01/24 06/01/24 Unknown History mg-acetaminophen 500 mg tablet (Tylenol PM Extra Strength) lisinopril 10 mg tablet 10 mg PO DAILY 06/01/24 06/01/24 Unknown History omega 6-tdp-siu-fish oil 1,000 mg 1 cap PO TID 06/01/24 06/01/24 Unknown History (120 mg-180 mg) capsule (Fish Oil) solifenacin 5 mg tablet 5 mg PO BEDTIME 06/01/24 06/01/24 Unknown History Exam Airway Mallampati Class: II TM Dist: >3cm Neck ROM: Full Assessment and Plan Assessment Anesthesia Assessment: Anesthesia Plan Discussed Final Anesthetic Review Family History of Problems with Anesthesia: No History of Problems with Anesthesia: No NPO: Yes ASA Class: III Final Preanesthetic Review: No Changes in Pt Med Stat, Meds/Allgs Chart Reviewed, Consent Obtained/Reviewed and Anes Risks/Benef Reviewed Patient Risk: Intermediate Procedure Risk: Low Anesthetic Plan Anesthetic Plan: GA Disposition: Standard PACU
[2024-06-12] VITALS (11 sets, daily range): BP systolic 141–165; BP diastolic 54–70; PULSE 65–74; RESP 15–18; TEMP 36.4–36.6; O2SAT 94–98
--- NOTE | ~2024-06-12 | MM_ITS ---
EXAMINATION: MM SPECIMEN X-RAY BREAST, LEFT BREAST CLINICAL INDICATION: Left breast 7:00 axis IDC grade 3, marked by butterfly clip, estimated size 2.1 x 1.8 x 2.1 cm by sonography, for lumpectomy/excision. COMPARISON: Correlation made with sentinel node injection performed same day, left breast localization 06/05/2024, and left breast ultrasound-guided needle biopsy would diagnostic mammography 05/17/2024. TECHNIQUE: Single radiograph of the excised breast tissue is performed using digital mammography. FINDINGS: The specimen radiograph demonstrates the presence of the RFID tag, butterfly shaped biopsy clip, and irregular mass containing maintained within the central aspect of the specimen. Addition there are calcified vessels present. Results were called to Dr. Alistair Tyler in the operating room at the time of imaging. Electronically signed by: Kaveh Kahn MD 06/12/2024 05:28 PM EDT
--- NOTE | ~2024-06-12 | NM_ITS ---
EXAMINATION: NM LYMPHOSCINTIGRAPHY CLINICAL INFORMATION: Left breast 7:00 axis IDC grade 3, marked by butterfly clip, estimated size 2.1 x 1.8 x 2.1 cm by sonography. COMPARISON: Left breast localization 06/05/2024. Left breast ultrasound-guided needle biopsy with diagnostic mammography 05/17/2024. TECHNIQUE: Left breast lymphoscintigraphy injection was performed . Approximately 0.5 mCi of technetium 99m lymphoseek and 0.8 mL of saline was divided into 4 aliquots of approximately 0.125 mCi, and injected in 4 quadrants around the right breast areola intradermally at 12:00, 3:00, 6:00, and 9:00. Immediate images and delayed images were obtained in AP, oblique and lateral views 30 minutes later. FINDINGS: There is isotope activity in four-quadrant around right breast areola following injection. There are at least 8-9 areas of isotope activity along the left lower and mid axilla, as well as the subclavicular region suggestive of multiple lymph nodes. NM/NM sentinel node w imaging IMPRESSION: Numerous small lymph nodes seen in left lower, mid, and superior axilla on right breast lymphoscintigraphy. Thank you for the courtesy of your referral. Electronically signed by: Kaveh Kahn MD 06/12/2024 11:56 AM EDT
[2024-06-12] MEDS: Lidocaine HCl 4 % Topical 50 ML SOLUTION 1 APPL TOPICAL (07:06)
[2024-06-12] MEDS: Lactated Ringers 1,000 ML 100 ML IVCONT (07:21)
[2024-06-12] MEDS: vancomycin HCL 1,000 MG in 0.9 % Sodium Chloride 250 ML 270 MG IV (09:06)
--- NOTE | 2024-06-12 10:49 | MHC.SHP ---
Pre-Procedural Eval Section A - 24 Hr Update-Section A only Date of Service: 06/12/24 The patient is an INPATIENT: No Changes since office visit: Yes Patient answered all questions; No Cold of Flu in the past 2 weeks, No New Medical Problems and No Changes in Medication The patient has been examined within 24 hours of the surgical procedure. The History & Physical has been completed within 30 days and I have reviewed it.: No Section B - Complete if H&P > 30 days Chief Complaint: Malignant neoplasm of unspecified site of left fem Details of Present Illness: No change from prior visit Relevant Family History (Specify if Yes): No Relevant Social History: None Present Medications: see Short Stay Collaborative assessment Medical History: No relevant PMH History of Previous Operations: Relevant previous surgery/procedure and date(s) (Right breast ca) Allergies: Allergies Allergy/AdvReac Type Severity Reaction Status Date / Time IV Contrast Allergy Severe Rash/swelli Uncoded 06/01/24 09:42 ng Latex Allergy Severe Rash/bliste Uncoded 06/01/24 09:42 rs Medical Tape Allergy Severe Rash/bliste Uncoded 06/01/24 09:42 rs amoxicillin Allergy Intermediate Swelling Uncoded 06/01/24 09:42 sulfa drugs Allergy Intermediate Rash Uncoded 06/01/24 09:42 Review of Systems Sugical H&P ROS: Negative: Constitution, Cardiovascular, Respiratory and Integumentary Exam Surgical H&P Exam: Normal: HEENT, Normal: Heart, Normal: Lungs, Normal: Extremities and Normal: Skin Plan Diagnosis/Plan: Unchanged I have reviewed the history and physical and performed a pertinent physical examination on my patient. No changes have occurred unless specified. Time Spent With Patient Time: Total time managing care of this patient today ____ minutes.
--- NOTE | 2024-06-12 12:16 | P.OP_ITS ---
Operative Note Operative Note Date of Service: 06/12/24 Narrative: Preoperative diagnosis: Left breast invasive ductal carcinoma Postoperative diagnosis: Same Procedure: Left breast lumpectomy with localizer, left axillary sentinel node biopsy Surgeon: Alistair Tyler MD Thermal Intelligence Analyst: Andreina Milton PA-C Anesthesia: General LMA Indications for procedure: 83-year-old female patient with a previous history of invasive ductal carcinoma right breast now presenting with a new left breast invasive ductal carcinoma. On examination the patient is found to have a palpable mass located in the 6 o'clock position measuring approximately 1.5 cm in diameter. Subsequent ultrasound core biopsy revealed an invasive carcinoma with ductal and lobular features, ER/AZ positive, HER2 Idris fish negative, Ki-67 high. She presents today for a left breast lumpectomy with localizer and left axillary sentinel node biopsy. Operative findings: Palpable mass located in the 6 o'clock position measuring at least 1.5 cm in diameter. Single palpable lymph node noted in the left axilla which was the hot node. Specimen: Left breast lumpectomy, left axillary sentinel node. Estimated blood loss: 20 mL Complications: None Procedure details: Patient was brought to the OR placed in a supine position. After administering general anesthesia the patient's left breast was prepped with ChloraPrep and draped in a sterile fashion. A surgical time-out was called the consent confirmed. Patient received preoperative antibiotics and Venodyne boots were in place. Local anesthesia was infiltrated in a curvilinear fashion in the 6 o'clock position transversely. Incision was then made with a scalpel and carried out through subcutaneous tissue. Superior and inferior skin flaps were then created with electrocautery. A palpable mass was identified in this location. Using the localizer as a guide a core of tissue surrounding a palpable mass which included the marking clip was obtained. The excision began with a superior margin down to chest wall. The lesion was then dissected off the chest wall again with electrocautery. Medial and lateral margins were then performed followed by the inferior margin. Specimen was then marked with a long suture on the lateral margin, short suture on the superior margin, and looped suture on the deep margin. This was imaged in the OR and the marking clip and localizer clip confirmed on the specimen x-ray. The specimen was sent to pa [facility] for margins. Margins were determined to be adequate. Attention was then directed to the left axilla. Using the gamma probe an area of increased activity was noted in the mid axilla. A curvilinear incision was made at the base of the axilla and carried out through subcutaneous tissue, past clavipectoral fascia into the axillary fat pad. Again using the gamma probe an area of increased activity was identified. Gentle dissection down to this area revealed a palpable enlarged lymph node. This was grasped with an Allis clamp and gently dissected from the surrounding adipose tissue. This was passed off the table and sent to pathology for further examination. No other palpable or hot nodes could be identified in the axilla. Wounds were then irrigated with saline solution and suctioned dry. Wounds were checked for hemostasis. Hemostasis was assured using free ties of 3-0 Polysorb and electrocautery. Beginning at the axilla the clavipectoral fascia was reapproximated using interrupted 3-0 Polysorb sutures. Superficial fatty tissue and dermis were then reapproximated using interrupted 3-0 Polysorb sutures. Skin was closed using a running subcuticular 4-0 Polysorb suture. Attention was then directed to the breast tissue were again wounds were irrigated with saline solution and suctioned dry. Wounds were again checked for hemostasis. Deep breast tissue was then reapproximated using interrupted 3-0 Polysorb sutures. Superficial breast tissue and dermis were reapproximated using interrupted 3-0 Polysorb sutures. Skin was then closed using a running subcuticular 4-0 Polysorb suture. Steri-Strips, 4 x 4 gauze and Tegaderm were then applied to both incisions. The patient tolerated the procedure well. Sponge, instrument, and needle counts reported as correct. The patient was transferred to PACU in stable condition. * Please note this procedure was performed with curative intent. Breast [place] Node Biopsy Substrate(s) used for sentinel node biopsy in the non-neoadjuvant setting: N/A Substrate(s) used for sentinel node biopsy in the neoadjuvant setting: Radiotra cer All colored nodes or non-colored nodes present at the end of a dye filled lymphatic channel were removed, if dye was used as the substrate for localization: N/A All significantly radioactive nodes were removed, if radionuclide was used as the substrate for localization: Yes All palpably suspicious nodes were removed, if present: Yes If clips were placed in pathology-involved nodes, those nodes were identified and removed: N/A General Surg. - Synoptic Notes Breast [place] Node Biopsy Substrate(s) used for sentinel node biopsy in the non-neoadjuvant setting: N/A Substrate(s) used for sentinel node biopsy in the neoadjuvant setting: Radiotracer All colored nodes or non-colored nodes present at the end of a dye filled lymphatic channel were removed, if dye was used as the substrate for localization: N/A All significantly radioactive nodes were removed, if radionuclide was used as the substrate for localization: Yes All palpably suspicious nodes were removed, if present: Yes If clips were placed in pathology-involved nodes, those nodes were identified and removed: N/A
== END 2024-06-12 15:17 | disposition home or self-care (01) ==
PROVIDERS: PCP Internal Medicine; Visit Provider Surgery
PROC: (CPT 19301; principal; 2024-06-12 10:40)
PROC: (CPT 19301; 2024-06-12 10:40)
DX: C50.812 Malignant neoplasm of overlapping sites of left female breast (principal); Z17.0 Estrogen receptor positive status [ER+]; R59.0 Localized enlarged lymph nodes; Z85.3 Personal history of malignant neoplasm of breast; Z90.11 Acquired absence of right breast and nipple; Z92.3 Personal history of irradiation; M19.90 Unspecified osteoarthritis, unspecified site; Z79.82 Long term (current) use of aspirin; Z79.899 Other long term (current) drug therapy; Z88.1 Allergy status to other antibiotic agents; Z88.2 Allergy status to sulfonamides; Z91.040 Latex allergy status; Z91.041 Radiographic dye allergy status
CPT/HCPCS: 19301; 38525; 38900; 78195; 88307; 88329; 88342; A9520; C1889; J0131; J1100; J2405; J2704; J2795; J3010; J3370

== ENCOUNTER → 2024-06-12 06:12 | Outpatient (BNV) | payer MEDICARE, SELFPAY | PROVIDERS: PCP Internal Medicine; Visit Provider Surgery | DX: C50.912 Malignant neoplasm of unspecified site of left female breast (principal) | CPT/HCPCS: 19301; 38525; 38900 ==

== ENCOUNTER → 2024-06-12 08:00 | Outpatient (BNV) | payer MEDICARE, SELFPAY | PROVIDERS: PCP Internal Medicine; Visit Provider Radiology Diagnostic Radiology | DX: C50.312 Malignant neoplasm of lower-inner quadrant of left female breast (principal) | CPT/HCPCS: 78195 ==

== ENCOUNTER 2024-06-19 09:05 | Outpatient (AMB) | payer MEDICARE, SELFPAY ==
--- NOTE | 2024-06-19 09:12 | MHC.OFFVIS ---
Vital Signs 06/19/24 09:29 Height 5 ft 2 in Weight 138 lb BMI 25.2 BP 185/81 H Blood Pressure Location Lt brachial Position Sitting Pulse 70 Intake Visit Reasons: S/P Lt. brst lumpectomy w/NL & SN bx Intake Note: Patient is seen in office for post op assessment post left breast lumpectomy with localizer, left axillary sentinel node biopsy. Pt c/o: minimal pain, swelling in the area, no other concerns surgery: 06/12/24 Residential Concierge Required: No Accompanied by: Other Relationship Allergies IV Contrast Allergy (Severe, Uncoded 06/19/24 09:30) Rash/swelling Latex Allergy (Severe, Uncoded 06/19/24 09:30) Rash/blisters Medical Tape Allergy (Severe, Uncoded 06/19/24 09:30) Rash/blisters amoxicillin Allergy (Intermediate, Uncoded 06/19/24 09:30) Swelling sulfa drugs Allergy (Intermediate, Uncoded 06/19/24 09:30) Rash HPI Comments Details: Bella Hinton is a 83 year old female patient former patient of Dr. Lund returning following left breast lumpectomy with localizer and left axillary sentinel node biopsy performed on 06/12/2024. She previously underwent a right partial mastectomy with sentinel node biopsy ([place]) in 2007 for an invasive lobular carcinoma with DCIS, ER/UT positive, HER2 Idris negative. [place] nodes were negative for metastatic disease. She subsequently underwent radiation therapy which was completed on 04/01/2008. Patient refused aromatase inhibitor therapy. Her postoperative course was complicated by hematoma and she continues to feel a lump at the site of surgery. Mammogram of 03/26/2024 revealed a focal asymmetry on the left breast for which additional imaging is required (BI-RADS 0). Subsequent follow-up images ultrasound confirmed bilateral suspicious findings. She subsequently underwent ultrasound-guided core biopsy of bilateral breast lesions on 05/17/2024. Subsequent pathology of the right breast revealed scar tissue however the left breast revealed invasive breast carcinoma with mixed lobular and ductal features, grade 3, ER/UT positive, HER2 Idris equivocal, FISH pending, Ki-67 high. She returned to the OR on 06/12/2024 for left breast lumpectomy with localizer and left axillary sentinel node biopsy. Pathology revealed a 2.3 cm invasive ductal carcinoma with lobular features, grade 3, ER/UT positive, HER2 Idris negative, Ki 67 high with negative margins, DCIS with greater than 2 mm margin. One left axillary sentinel node revealed isolated tumor cells (pT2 N0(sn)(i+) AJCC stage 8th ed). She reports some swelling in the left breast generally tolerated the surgery well. 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) Osteoarthritis Lumbar stenosis Thyroid nodule History of diverticulosis Asthma Hx of radiation therapy Invasive ductal carcinoma of right breast Arthritis Surgical History History of lumpectomy of left breast (06/12/24) Hx of cataract extraction Hx of umbilical hernia repair Hx of kyphoplasty Hx of total knee replacement (~2020) History of total mastectomy of right breast (2007) History of right breast biopsy History of incisional hernia repair History of hysterectomy Family History Mother Breast cancer Social History Are you a primary home care nurse to a significant other at home: No Do you presently have visiting nurse or other home services: No Alcohol intake: never Patient Tobacco Use Status: Never used Tobacco Female Reproductive History Menstrual Age of Menarche: 11 Review of Systems Const All systems reviewed & are unremarkable except as noted in HPI and below GI Reports no additional complaints Denies nipple discharge Musc Reports no additional complaints Skin/Breast Denies breast swelling, Denies breast skin changes, Reports breast pain, Reports breast mass, Denies new lesions and Denies nipple discharge Physical Exam Vital Signs: Last Vital Signs Pulse 70 06/19/24 09:29 BP 185/81 H 06/19/24 09:29 BMI result Body Mass Index 25.2 Const General: cooperative, comfortable, no acute distress, well developed, alert and awake Orientation/consciousness: patient oriented x3 Limitations: no limitations Neck Lymphatic: no lymphadenopathy noted Chest Other: Ecchymotic changes noted to the left breast with an intact incision and intact Steri-Strips of the lower inner quadrant. Incision in the left axilla is clean, dry, and intact with minimal ecchymosis. No evidence of hematoma or seroma. Resp Effort & Inspection: normal respiratory effort GI Inspection: Yes normal to inspection Skin General skin exam: no rashes or lesions noted Neuro General: patient oriented x3 Extrem General: Yes no clubbing, cyanosis or edema Assessment & Plan Assessment & Plan (1) Invasive ductal carcinoma of left breast: Code(s): C50.912 - Malignant neoplasm of unspecified site of left female breast Category: Medical Plan 83-year-old female patient previous history of right breast carcinoma now with a new left breast invasive ductal carcinoma with lobular features returning status post left breast lumpectomy with localizer and left axillary sentinel node biopsy. She tolerated the procedure well. I reviewed the pathology results today with the patient and her family. I recommended oncology follow-up and will make arrangements. She is going to [place] for a proximally 1 month and will be back in the end of June. I have asked her to follow up in our office in approximately 2 months. Orders: Referrals Hematology & Oncology Referral C50.912 - Malignant neoplasm of unspecified site of left female breast Coding Level of Care Code Global (59792) Diagnoses Invasive ductal carcinoma of left breast C50.912
[2024-06-19 09:29] VITALS: BP 185/81; PULSE 70; BMI 25.2
== END 2024-06-19 09:45 | disposition home or self-care (01) ==
LOC: HO.HGS 09:05
PROVIDERS: PCP Internal Medicine; Visit Provider Surgery
DX: C50.912 Malignant neoplasm of unspecified site of left female breast (principal)
CPT/HCPCS: 99024

== ENCOUNTER → 2024-06-19 09:05 | Outpatient (BNVA) | payer MEDICARE, SELFPAY | PROVIDERS: PCP Internal Medicine; Visit Provider Surgery | DX: C50.912 Malignant neoplasm of unspecified site of left female breast (principal) | CPT/HCPCS: 99212 ==

== ENCOUNTER → 2024-07-16 11:02 | Outpatient (BNV) | payer MEDICARE, SELFPAY | PROVIDERS: PCP Internal Medicine; Referring Provider Surgery; Visit Provider Internal Medicine Medical Oncology | DX: C50.912 Malignant neoplasm of unspecified site of left female breast (principal) | CPT/HCPCS: 99204 ==

== ENCOUNTER 2024-07-20 10:01 | Outpatient (AMB) | payer MEDICARE, SELFPAY ==
--- NOTE | 2024-07-20 10:03 | A.OFFVIS_ITS ---
Vital Signs 07/20/24 10:09 Height 5 ft 2 in Weight 137 lb 9.095 oz BMI 25.2 Pulse 72 Intake Visit Reasons: 3 wk fu S/P Lt. brst lumpectomy w/NL & SN bx Intake Note: Patient is seen in office for one month follow up visit, post left breast lumpectomy. Pt c/o:admits to sore, bruise and tender, denies discharge, redness, or infection Boiler Room Operator Required: No Accompanied by: Self / Same As Patient Allergies IV Contrast Allergy (Severe, Uncoded 07/20/24 10:11) Rash/swelling Latex Allergy (Severe, Uncoded 07/20/24 10:11) Rash/blisters Medical Tape Allergy (Severe, Uncoded 07/20/24 10:11) Rash/blisters amoxicillin Allergy (Intermediate, Uncoded 07/20/24 10:11) Swelling sulfa drugs Allergy (Intermediate, Uncoded 07/20/24 10:11) Rash Medication List - Last Reconciled 07/20/24 by Alistair Tyler MD acetaminophen 1,000 mg PO TID PRN aspirin 81 mg PO DAILY fnmfln-stxc-czfh-levomef-silic 10-50-500-0.5 mg 1 cap PO DAILY calcium carbonate-vitamin D3 600 mg-5 mcg (200 unit) 1 tab PO DAILY cyanocobalamin (vitamin B-12) 100 mcg PO DAILY ergocalciferol (vitamin D2) 1,250 mcg PO QWEEK lisinopril 10 mg PO DAILY omega 2-fqf-cga-fish oil 1,000 mg (120 mg-180 mg) (Fish Oil) 1 cap PO TID solifenacin 5 mg PO BEDTIME HPI Comments Details: Bella Hinton is a 83 year old female patient former patient of Dr. Lund returning following left breast lumpectomy with localizer and left axillary sentinel node biopsy performed on 06/12/2024. Mammogram of 03/26/2024 revealed a focal asymmetry in the left breast confirmed on subsequent images and ultrasound. She underwent an ultrasound-guided core biopsy of the left breast on 05/17/2024 which revealed invasive breast cancer with mixed lobular and ductal features, grade 3, ER/DC positive, Ki-67 high proliferation index. She underwent a left breast lumpectomy with localizer and left axillary sentinel node biopsy on 06/12/2024. Pathology revealed a 2.3 cm invasive ductal carcinoma with lobular features, grade 3, ER/DC positive, HER2 Idris negative, Ki-67 high with negative margins, DCIS with greater than 2 mm margins. One left axillary sentinel node revealed isolated tumor (pT2, pN0 (sn) (i+)). Her past history is significant for a previous right partial mastectomy with sentinel node biopsy ([place]) performed in 2007 for an invasive lobular carcinoma with DCIS, ER/DC positive, HER2 Idris negative. [place] nodes were negative for metastatic disease. She subsequently underwent radiation therapy which was completed on 04/01/2008. Patient refused aromatase inhibitor therapy. Her postoperative course was complicated by hematoma and she continues to feel a lump at the site of surgery. She recently went to [place] to visit her children and had a good visit. She was evaluated by Dr. English and a bone density scan requested to determine whether she will go on tamoxifen or AI. She reports some swelling in the left breast generally tolerated the surgery well. [facility] Medical History [place] (hard of hearing) Environmental allergies 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) Osteoarthritis Lumbar stenosis Thyroid nodule History of diverticulosis Asthma Hx of radiation therapy Invasive ductal carcinoma of right breast Arthritis Surgical History History of lumpectomy of left breast (06/12/24) Hx of cataract extraction Hx of umbilical hernia repair Hx of kyphoplasty Hx of total knee replacement (~2020) History of total mastectomy of right breast (2007) History of right breast biopsy History of incisional hernia repair History of hysterectomy Family History Mother Breast cancer Social History Household Members: Significant Other Are you a primary animal care technician to a significant other at home: No Do you presently have visiting nurse or other home services: No Alcohol intake: never Patient Tobacco Use Status: Never used Tobacco service: No Current occupational status: disabled Female Reproductive History Menstrual Age of Menarche: 11 Review of Systems Const All systems reviewed & are unremarkable except as noted in HPI and below GI Reports no additional complaints Denies nipple discharge Musc Reports no additional complaints Skin/Breast Denies breast swelling, Denies breast skin changes, Reports breast pain, Reports breast mass, Denies new lesions and Denies nipple discharge Physical Exam Vital Signs: Last Vital Signs Pulse 72 07/20/24 10:09 BMI result Body Mass Index 25.2 Const General: cooperative, comfortable, no acute distress, well developed, alert and awake Orientation/consciousness: patient oriented x3 Limitations: no limitations Neck Lymphatic: no lymphadenopathy noted Chest Other: Well-healed incision in the lower outer quadrant left breast and axilla. No redness, ecchymosis, or palpable hematoma/seroma is identified. No other palpable masses appreciated in the left breast. Right breast continues to show the chronic scar tissue from previous partial mastectomy in the upper inner quadrant. No other palpable mass, skin change or enlarged lymph nodes are appreciated. Resp Effort & Inspection: normal respiratory effort GI Inspection: Yes normal to inspection Skin General skin exam: no rashes or lesions noted Neuro General: patient oriented x3 Extrem General: Yes no clubbing, cyanosis or edema Assessment & Plan Assessment & Plan (1) Invasive ductal carcinoma of left breast: Code(s): C50.912 - Malignant neoplasm of unspecified site of left female breast Category: Medical Plan 83-year-old female patient previous history of right breast carcinoma now with a new left breast invasive ductal carcinoma with lobular features returning status post left breast lumpectomy with localizer and left axillary sentinel node biopsy. She tolerated the procedure well. She will continue to follow up with Medical Oncology. I recommended she return in approximately 3 months for follow-up breast examination. She is welcome to call sooner for any new concerns. Coding Level of Care Code Global (96815) Diagnoses Invasive ductal carcinoma of left breast C50.912
[2024-07-20 10:09] VITALS: PULSE 72; BMI 25.2
== END 2024-07-20 10:27 | disposition home or self-care (01) ==
PROVIDERS: PCP Internal Medicine; Visit Provider Surgery
DX: C50.912 Malignant neoplasm of unspecified site of left female breast (principal)
CPT/HCPCS: 99024

== ENCOUNTER → 2024-07-20 10:01 | Outpatient (BNVA) | payer MEDICARE, SELFPAY | PROVIDERS: PCP Internal Medicine; Visit Provider Surgery | DX: C50.912 Malignant neoplasm of unspecified site of left female breast (principal) | CPT/HCPCS: 99212 ==

== ENCOUNTER 2024-09-13 10:40 | Outpatient (REF) | payer MEDICARE, SELFPAY ==
--- NOTE | ~2024-09-13 | XR_ITS ---
EXAMINATION: XR SHOULDER, RIGHT CLINICAL INFORMATION: M25.511 - Pain in right shoulder COMPARISON: None available. TECHNIQUE: Two views of the right shoulder. FINDINGS: Joint space narrowing, subchondral cyst formation and mild deformity of the glenohumeral joint. No acute cortical disruption or malalignment. Vascular clips along the lateral soft tissues of the right breast shadow. Calcified plaque thoracic aorta. Multilevel thoracic spondylosis. XR/XR shoulder RT min 2V IMPRESSION: Osteoarthrosis, glenohumeral joint. No acute fracture or dislocation. Electronically signed by: Alexander Gill MD 09/19/2024 09:13 AM MINDY
--- OUTSIDE RECORDS SUMMARY | 2024-09-14 12:16 | XMS_ITS | Continuity of Care Document ---
Author Name [facility] Care Team Providers Care Managed Services Sales Consultant Name Role Phone [facility] Unavailable Unavailable Problems Problem Status Onset Date Classification Date Reported Comments Source Altered mental status, unspecified Active 01/18/2024 [facility] Medications Medication Details Route Status Patient Instructions Ordering Provider Order Date Source Keflex 500 mg oral capsule = 1 Cap, ORAL, Q8H, X 3 Day(s), # 9 Cap, Indication= UTI, complicated, 0 Refill(s), Acute, Pharmacy: [facility] [id number] [facility] [employer], 157.5, cm, 01/19/24 1:08:00 PDT, Height/Length (cm), 73.9, kg, 01/19/24 1:08:00 PDT, Dose calculation weight (kg) Active 01/19/20 24 60 [facility] aspirin 81 mg, ORAL, DAILY, 0 Refill(s), Maintenance Active 01/19/20 24 60 [facility] Allergies, Adverse Reactions, Alerts Substance Category Reaction Severity Reaction type Status Date Reported Comments Source sulfa drugs Assertion Drug allergy Active 60 [facility] Contrast Dye Assertion Itching (finding) Drug allergy Active 60 [facility] Tape Assertion Eruption of skin (disorder) Drug allergy Active 60 [facility] statins Assertion Drug allergy Active 60 [facility] Results Order Name Results Value Reference Range [...] available or where there is a stringent senior quality assurance analyst program in place).In the absence of unequivocal [...] Fructosamine. *Reference Range based on ADA Guidelines. [facility] A1C Sex assigned at Female 01/18 [facility] AutoDif f* Auto Neutrophil Percent 70.6 % 49.4 - 72.6 01/18 [facility] AutoDif f* Auto Neutrophil Absolute 8.1 K/uL 2.0 - 6.4 01/18 H [facility] AutoDif f* Auto Lymphocyte Percent 15.4 % 18.0 - 40.0 01/18 L [facility] AutoDif f* Auto Lymphocyte Absolute 1.8 K/uL 1.5 - 3.0 01/18 NA [facility] AutoDif f* Auto Monocyte Percent 4.7 % 4.9 - 10.1 01/18 L [facility] AutoDif f* Auto Monocyte Absolute 0.5 K/uL 0.3 - 0.8 01/18 NA [facility] AutoDif f* Auto Eosinophil Percent 5.3 % 0.0 - 5.0 01/18 H [facility] AutoDif f* Auto Eosinophil Absolute 0.6 K/uL 0.0 - 0.4 01/18 H [facility] AutoDif f* Auto Basophil Percent 4.0 % 0.2 - 1.2 01/18 H [facility] AutoDif f* Auto Basophil Absolute 0.5 K/uL 0.0 - 0.1 01/18 H [facility] AutoDif f* Auto NRBC % 0 % 01/18 NA [facility] AutoDif f* Sex assigned at Female 01/18 NA [facility] Sodium Level 140 MMOL/L 135 - 145 01/18 NA [facility] Potassium Level 3.8 MMOL/L 3.5 - 5.0 01/18 NA [facility] Chloride Level 107 MMOL/L 101 - 111 01/18 NA [facility] BMP CO2/Carbon Dioxide 26 MMOL/L 24 - 32 01/18 NA [facility] Anion Gap 7.0 5.0 - 15.0 01/18 NA [facility] Glucose, Random 82 MG/DL - <=200 01/18 NA [facility] BUN 13 MG/DL 8 - 20 01/18 NA [facility] BMP Creatinine 0.49 MG/DL 0.60 - 1.30 01/18 L [facility] BUN/Creat Ratio 26.5 12.0 - 20.0 01/18 H [facility] Osmolality, Calculated 279 mOsm/L 01/18 NA [facility] Calcium Level 8.3 MG/DL 8.4 - 10.2 01/18 L [facility] eGFR >90 mL/min/1.73 m2 01/18 NA This eGFR equation utilizes the 2020 CKD-EPI creatinine equation.Stage s GFRNone or slight 1 >90 ml/minMild 2 60-89 ml/minModerate 3 30-59 ml/minSevere 4 15-29 ml/minApproach ing Failure 5 <15 ml/min [facility] BMP Sex assigned at Female 01/18 NA [facility] CBC WBC 11.5 K/uL 3.7 - 10.5 01/18 H [facility] CBC RBC 5.90 M/uL 3.61 - 5.37 01/18 H [facility] CBC HGB 12.5 g/dL 11.2 - 15.8 01/18 NA [facility] CBC HCT 40.6 % 32.9 - 49.0 01/18 NA [facility] CBC MCV 68.8 fL 80.1 - 99.2 01/18 L [facility] CBC MCH 21.2 pg 25.8 - 33.5 01/18 L [facility] CBC MCHC 30.8 g/dL 31.0 - 37.0 01/18 L [facility] CBC RDW 18.6 % 12.0 - 15.8 01/18 H [facility] CBC PLT 499 K/uL 139 - 422 01/18 H [facility] CBC MPV 7.90 fL 6.84 - 10.28 01/18 NA [facility] CBC Sex assigned at Female 01/18 NA [facility] LipidP Total Cholesterol 170 MG/DL 135 - 215 01/18 NA Cholesterol Risk:<200 mg/dL [id number] to 239 mg/dL Borderline>239 mg/dL High [facility] LipidP Triglycerides 63 MG/DL 36 - 200 01/18 NA Triglyceride Risk: Low < 150 Borderline High 150 to 199 High 200 to 499 Very High >=500 [facility] LipidP HDL Cholesterol 70 MG/DL 29 - 89 01/18 NA [facility] LipidP LDL Cholesterol, Calc 87 MG/DL 62 - 160 01/18 NA LDL Risk: < 130 Low; 130-159 Borderline; > 160 High [facility] LipidP Total Chol/HDL Ratio 2.4 0.0 - 13.5 01/18 NA MEN: Average Risk is 5.0, 2X Risk is 9.6WOMEN: Average Risk is 4.5, 2X Risk is 7.1 [facility] LipidP LDL/HDL Ratio 1.2 01/18 NA [facility] LipidP Sex assigned at Female 01/18 NA [facility] LipidP VLDL Cholesterol, Calc 13 MG/DL 01/18 [facility] PCT Procalcitonin Level <0.05 NG/ML - <=0.50 01/18 [facility] PCT Sex assigned at Female 01/18 [facility] TSH3 TSH Thyroid Stim Hormone 3RD Generation 2.86 uIU/mL 0.40 - 5.00 01/18 [facility] TSH3 Sex assigned at Female 01/18 [facility] VitB12 Vitamin B12 Level 634.0 PG/ML 180.0 - 914.0 01/18 NA Reference Range for Vitamin B12:Normal Range 180 - 914 pg/mLIndetermi bola Range 145 - 180 pg/mLDeficient Range <= 145 pg/mL [facility] VitB12 Sex assigned at Female 01/18 [facility] POC Gluc POCT - Glucose (Capillary) 86 MG/DL 65 - 110 01/18 NA Device Code: [id number] ty: 0060Location: 60 MED/SURSerial Number: [id number] erator Code: [id number] r Name: Aris BADILLO Lot: [id number] Comment: Cleaned Meter [facility] POC Gluc Sex assigned at Female 01/18 [facility] Lactic WB Lactic Acid WB 0.64 MMOL/L 0.56 - 1.39 01/18 [facility] Lactic WB Sex assigned at Female 01/18 [facility] C Blood C Blood Final:No growth at 5 days.Sex assigned at :Femal e 01/18 [facility] UACSIf UA - Source/Collec t Type Urine [...] Please correlate with clinical and dietary history [facility] UACSIf UA - Appearance Clear Clear 01/18 NA [facility] UACSIf UA - Color Yellow 01/18 NA [facility] UACSIf UA - pH 6.0 5.0 - 8.0 01/18 NA [facility] UACSIf UA - Specific [place] 1.030 1.010 - 1.025 01/18 * [facility] UACSIf UA - Protein Negative Negative 01/18 NA [facility] UACSIf UA - Glucose Negative Negative 01/18 NA [facility] UACSIf UA - Ketones Negative Negative 01/18 NA [facility] UACSIf UA - Bilirubin Negative Negative 01/18 NA [facility] UACSIf UA - Blood Negative Negative 01/18 NA [facility] UACSIf UA - Urobilinogen Negative Negative 01/18 NA [facility] UACSIf UA - Nitrites Negative Negative 01/18 NA [facility] UACSIf UA - Leukocyte Esterase Small Negative 01/18 * [facility] UACSIf Urine Culture Y/N Yes 01/18 NA [facility] UACSIf UA - WBC 7 /HPF 0 - 5 01/18 H [facility] UACSIf UA - RBC <1 /HPF 0 - 2 01/18 NA [facility] UACSIf UA - Bacteria Negative Negative 01/18 NA [facility] UACSIf UA - Epithelials, Squamous Few 0 - 5 01/18 NA [facility] UACSIf Sex assigned at Female 01/18 NA [facility] C Urine C Urine Final:40,00 0 cfu/ml Three or more bacterial species isolated from urine indicating superficial or fecal contaminati on. Suggest recollectio n if symptoms persist.Sex assigned at :Femal e 01/18 Performed at: [facility], [address] [place] [address], Blood Bank Assistant: Annika Robertson MD [facility] [place] CLIA Treponema pallidum Ab CLIA Nonreactive [...] treponemal disease conditions is to be expected. [facility] [place] CLIA Sex assigned at Female 01/18 NA [facility] AutoDif f* Auto Neutrophil Percent 75.9 % 49.4 - 72.6 01/18 H [facility] AutoDif f* Auto Neutrophil Absolute 11.2 K/uL 2.0 - 6.4 01/18 H [facility] AutoDif f* Auto Lymphocyte Percent 14.5 % 18.0 - 40.0 01/18 L [facility] AutoDif f* Auto Lymphocyte Absolute 2.1 K/uL 1.5 - 3.0 01/18 NA [facility] AutoDif f* Auto Monocyte Percent 5.1 % 4.9 - 10.1 01/18 NA [facility] AutoDif f* Auto Monocyte Absolute 0.8 K/uL 0.3 - 0.8 01/18 NA [facility] AutoDif f* Auto Eosinophil Percent 4.2 % 0.0 - 5.0 01/18 NA [facility] AutoDif f* Auto Eosinophil Absolute 0.6 K/uL 0.0 - 0.4 01/18 H [facility] AutoDif f* Auto Basophil Percent 0.3 % 0.2 - 1.2 01/18 NA [facility] AutoDif f* Auto Basophil Absolute 0.0 K/uL 0.0 - 0.1 01/18 NA [facility] AutoDif f* Auto NRBC % 0 % 01/18 NA [facility] AutoDif f* Sex assigned at Female 01/18 NA [facility] CBC WBC 14.8 K/uL 3.7 - 10.5 01/18 H [facility] CBC RBC 6.16 M/uL 3.61 - 5.37 01/18 H [facility] CBC HGB 13.4 g/dL 11.2 - 15.8 01/18 NA [facility] CBC HCT 42.5 % 32.9 - 49.0 01/18 NA [facility] CBC MCV 68.9 fL 80.1 - 99.2 01/18 L [facility] CBC MCH 21.8 pg 25.8 - 33.5 01/18 L [facility] CBC MCHC 31.6 g/dL 31.0 - 37.0 01/18 NA [facility] CBC RDW 18.4 % 12.0 - 15.8 01/18 H [facility] CBC PLT 534 K/uL 139 - 422 01/18 H [facility] CBC MPV 7.60 fL 6.84 - 10.28 01/18 NA [facility] CBC Sex assigned at Female 01/18 NA [facility] Sodium Level 137 MMOL/L 135 - 145 01/18 NA [facility] Potassium Level 4.3 MMOL/L 3.5 - 5.0 01/18 NA [facility] Chloride Level 102 MMOL/L 101 - 111 01/18 NA [facility] CO2/Carbon Dioxide 28 MMOL/L 24 - 32 01/18 NA [facility] Anion Gap 7.0 5.0 - 15.0 01/18 NA [facility] Glucose, Random 104 MG/DL - <=200 01/18 NA [facility] BUN 19 MG/DL 8 - 20 01/18 NA [facility] Creatinine 0.67 MG/DL 0.60 - 1.30 01/18 NA [facility] BUN/Creat Ratio 28.4 12.0 - 20.0 01/18 H [facility] Osmolality, Calculated 276 mOsm/L 01/18 NA [facility] Calcium Level 9.0 MG/DL 8.4 - 10.2 01/18 NA [facility] Total Protein 7.4 g/dL 6.4 - 8.3 01/18 [facility] Albumin Level 4.0 g/dL 3.2 - 5.5 01/18 [facility] Globulin Level 3.4 g/dL 1.5 - 3.5 01/18 NA [facility] A/G Ratio 1.2 1.1 - 2.2 01/18 NA [facility] CMP ALP 88 IU/L 30 - 115 01/18 NA [facility] CMP ALT 14 IU/L 5 - 36 01/18 NA [facility] CMP AST 20 IU/L 10 - 42 01/18 NA [facility] CMP Bilirubin, Total 0.3 MG/DL 0.2 - 1.2 01/18 NA [facility] CMP eGFR 87 mL/min/1.73 m2 01/18 NA This eGFR equation utilizes the 2020 CKD-EPI creatinine equation.Stage s GFRNone or slight 1 >90 ml/minMild 2 60-89 ml/minModerate 3 30-59 ml/minSevere 4 15-29 ml/minApproach ing Failure 5 <15 ml/min [facility] CMP Sex assigned at Female 01/18 NA [facility] MDW MDW 19.1 AU 0.0 - 19.9 [...] with hematological abnormalities has not been established. [facility] MDW Sex assigned at Female 01/18 NA [facility] PT PT - Patient 13.2 SECNDS 12.0 - 14.7 01/18 NA [facility] PT PT - INR 1.0 0.8 - 1.2 01/18 NA ANTICOAGULATED PATIENT'S LOW RISK, INR 2.0 TO 3.0ANTICOAGULA BRIGID PATIENT'S HIGH RISK, INR 2.5 TO 3.5 [facility] PT Sex assigned at Female 01/18 [facility] PTT PTT - Patient 40 SECNDS 22 - 36 01/18 H Therapeutic Range:Heparin Units PTT Range0.3 - 0.7 IU/mL 73.4 - 96.20.1 - 0.3 IU/mL 61.9 - 73.4 [facility] PTT Sex assigned at Female 01/18 NA [facility] TROPHS Troponin I High Sensitivity 11 ng/L [...] testing may be helpful for interpretation . [facility] TROPHS Sex assigned at Female 01/18 NA [facility] POC Gluc POCT - Glucose (Capillary) 118 MG/DL 65 - 110 01/18 H Device Code: 60 ERCFacility: 0060Location: 60 ERSerial Number: [id number] erator Code: [id number] Name: Dunia Lau Lot: [id number] Comment: Physician Notified [facility] POC Gluc Sex assigned at Female 01/18 NA [facility] POC PT/INR POCT - INR 1.3 1.0 - 1.3 01/18 NA [facility] POC PT/INR Sex assigned at Female 01/18 NA [facility] Diagnostic Reports Report Value Date Source MRI [...] please contact your referring doctor directly. 01/19/2024 [facility] CT Brain WO Contrast Exam: CT Head [...] Addendum Results were relayed by the radiologist sales support assistant to Dr. Carter on 01/18/2024 8:49 p.m. 01/19/2024 [facility] Chest 1 Vw Portable Exam: X-ray Chest [...] please contact your referring doctor directly. 01/19/2024 [facility] CT Angio Head/Neck W Contrast Exam: CT [...] more distal vessel in accordance with [place] Symptomatic Carotid Endarterectomy Trial (NASCET). If you are a provider and would like to contact the interpreting physician or one of the staff members, please call . For patients who have questions in regard to this examination, please contact your referring doctor directly. 01/19/2024 [facility] Consultation Notes Results Value Date Source Neurology [...] Patient is an 83-year-old female visiting from [place] with a past medical history of TIAs [...] Q1HR, PRN Rocephin, 1 gm, IV PUSH, [id number] Sodium Chloride 0.9% IV Tubing Flush (ONE) [...] Clear? 01/18/24 21:10 PDT UA - Specific [place]? 1.030? (ABNORMAL)? 01/18/24 21:10 PDT UA - [...] Signed on: 19-Jan-2024 12:28 PDT 01/19/2024 60 [facility] Neurology Consultation Patient: VIJAY CURRAN Age: 83 years Legal Sex: FEMALE : 1940 Chief Complaint BIB family c/o difficulty speaking at 1999, was unable to complete a sentence. AOx3, unsure of year, Resp E/U, pt asking repetitive questions. 10/10 shoulder pain since last night. Baseline AOx4. Reason for Consultation TIA/Stroke History of Present Illness Patient is an 83-year-old female visiting from [place] with a past medical history of TIAs [...] Q1HR, PRN Rocephin, 1 gm, IV PUSH, [id number] Sodium Chloride 0.9% IV Tubing Flush (ONE) [...] Clear 01/18/24 21:10 PDT UA - Specific [place] 1.030 (ABNORMAL) 01/18/24 21:10 PDT UA - [...] to quit? No. Pts case reviewed with HEAD BUYER TOBACCO-Dede. Acute Confusional State. Resolved. Hypertensive Encephalopathy vs. Metabolic Encephalopathy 2 UTI. MRI Brain neg. Reviewed with Dr. Garcia. Clear to [place] home from [facility]. Thank u for the kind consult. [id number] Female 01/19/2024 [facility] Progress note Patient: VIJAY CURRAN H ? [...] Clear? 01/18/24 21:10 PDT UA - Specific [place]? 1.030? (ABNORMAL)? 01/18/24 21:10 PDT UA - [...] this document may have been created using [employer] Software and may contain mistakes.? Electronically signed by: MD Jose, [id number] Signed on: 19-Jan-2024 11:33 PDT 01/19/2024 60 [facility] Progress Note Patient: JEWEL CURARN Age: 83 years Legal Sex: FEMALE : [...] Clear 01/18/24 21:10 PDT UA - Specific [place] 1.030 (ABNORMAL) 01/18/24 21:10 PDT UA - [...] this document may have been created using [employer]ict[employer] Software and may contain mistakes. [id number] Female 01/19/2024 [facility] History and Physical Examination Patient: VIJAY CURRAN [...] Patient is an 83-year-old female visiting from [place] with a past medical history of TIA [...] Admission Status ? Difficulty speaking (Difficulty speaking, [id number]) ? Orders: aspirin (aspirin), 81 mg, CHEW, [...] this document may have been created using [employer] Software and may contain mistakes.? ? [...] Clear? 01/18/24 21:10 PDT UA - Specific [place]? 1.030? (ABNORMAL)? 01/18/24 21:10 PDT UA - [...] more distal vessel in accordance with [place] Symptomatic Carotid Endarterectomy Trial (NASCET). ? ? [...] Signed on: 19-Jan-2024 02:46 PDT 01/19/2024 60 [facility] Neurology Consultation Patient: VIJAY CURRAN Age: 83 years Legal Sex: FEMALE : 1940 _ Acute TeleNeurology Phone Consult Note Site: [facility] Patient Name: VIJAY CURRAN Patient : 1940 Consult Date: 01/18/2024 21:07:48 Time Paged: 2027 Time Called Back: 2027 [note paged to non-working line multiple times, but then was connected by [employer]GS[employer] STOCK CLERK] Phone only consult requested/approved by consulting physician. History per EMR and/or referring physician report. Reason for Consult: AMS Summary: 83 Years old Female per ER note: 'Patient is 83 years old, currently visiting the area from [place], with a history of TIAs, on baby [...] otherwise: - need additional history - basic zzxbq-ucqurnojz-nukabfimkd workup as appropriate per ER/primary team - [...] minutes Signed: Mandeep Sebastian MD [facility] [id number] Female 01/19/2024 [facility] ED Physician Notes Patient: JEWEL CURRAN Age: [...] years old, currently visiting the area from [place], with a history of TIAs, on baby [...] mL, IVPB, ONCE Order Profile Completed (Completed) [id number] CBC Auto w Auto Diff ONCE, Stat, [...] 01/18/24 20:32:30 PDT, RT, Routine, 01/18/24 20:32:30 /[place] POC PT/INR Panel Blood, Collected Y/N, 01/18/24 20:31:14 PDT, RT, Routine, 01/18/24 20:31:14 /[place] Partial Thromboplastin Time PTT 01/18/24 20:28:00 PDT, [...] more distal vessel in accordance with [place] Symptomatic Carotid Endarterectomy Trial (NASCET). If you [...] were reviewed and updated. MSEI Information MSEI MD/HEAD BUYER TOBACCO/PA Time Patient Seen face to face: Date [...] 20:40 PDT) MDW 19.1 (01/18/24 20:40 PDT) [id number] Female 01/19/2024 [facility] Discharge Summaries Results Value Date Source Discharge [...] 157.5 cm WT: 73.9 kg BMI: 29.79 kg/g3Zagnrrj Appearance: No acute distress. ANO x 3 [...] to 2 weeks Address: [facility] [address] [place] [address]- Business (1) Provider: UNABLE TO OBTAIN PROVIDER Date: Within 1 to 2 weeks Time Spent Coordinating Discharge More than 30 minutes [id number] Female 01/20/2024 [facility] History and Physicals Results Value Date Source Hospitalist Admission H&P 01/19/2024 Ad [facility] History and Physical Patient: DO ISAAC CURRAN [...] Patient is an 83-year-old female visiting from [place] with a past medical history of TIA [...] Ordered: Admission Status Difficulty speaking (Difficulty speaking, [id number]) Orders: aspirin (aspirin), 81 mg, CHEW, DAILY, [...] this document may have been created using [employer] Software and may contain mistakes. Signature [...] Clear 01/18/24 21:10 PDT UA - Specific [place] 1.030 (ABNORMAL) 01/18/24 21:10 PDT UA - [...] more distal vessel in accordance with [place] Symptomatic Carotid Endarterectomy Trial (NASCET). If you [...] MD Swetha, Mary Jane Guadalupe 01/18/2024 21:12:29 [id number] Female 01/19/2024 [facility] Vital Signs Vital Sign Value Date Comments Source Temperature (F) 97.4 [degF] 01/19/2024 60 [facility] Peripheral Pulse Rate 84 bpm 01/19/2024 60 [facility] Respiratory rate 18 br/min 01/19/2024 60 [facility] Systolic BP 128 mm[Hg] 01/19/2024 60 [facility] Diastolic BP 71 mm[Hg] 01/19/2024 60 [facility] Pulse Oximetry 95 % 01/19/2024 60 [facility] Temperature (F) 97.4 [degF] 01/19/2024 60 [facility] Pulse Oximetry 97 % 01/19/2024 60 [facility] Peripheral Pulse Rate 76 bpm 01/19/2024 60 [facility] Systolic BP 138 mm[Hg] 01/19/2024 60 [facility] Diastolic BP 71 mm[Hg] 01/19/2024 60 [facility] Respiratory rate 18 br/min 01/19/2024 60 [facility] Temperature (F) 97.8 [degF] 01/19/2024 60 [facility] Peripheral Pulse Rate 84 bpm 01/19/2024 60 [facility] Systolic BP 137 mm[Hg] 01/19/2024 60 [facility] Diastolic BP 72 mm[Hg] 01/19/2024 60 [facility] Pulse Oximetry 97 % 01/19/2024 60 [facility] Respiratory rate 18 br/min 01/19/2024 60 [facility] HeightLength (cm) 157.5 cm [facility] 73.9 kg 01/19/2024 60 [facility] Body Mass Index 29.79 kg/m2 01/19/2024 60 [facility] Dose calculation weight (kg) 73.9 kg 01/19/2024 60 [facility] Heart Rate Monitored 77 bpm 01/19/2024 60 A [facility] Heart Rate Monitored 72 bpm 01/19/2024 60 A [facility] Heart Rate Monitored 77 bpm 01/19/2024 60 [facility] Weight (kg) 65.5 kg 01/19/2024 60 [facility] Dose calculation weight (kg) 65.5 kg 01/19/2024 60 [facility] Encounters Location Location Details Encounter Type Encounter Number Reason For Visit Attending Provider ADM Date DC Date Status Source 60 60 [facility] Observation [id number] AMS (ALTERE D MENTAL SATUS) [place] [place] 01/18 Active [facility] Procedures Procedure Code Date Perfomer Comments Source ROUTINE VENIPUNCTURE [id number] 01/19/2024 60 [facility] Plan of Care Plan of Care Date Source Diagnostic Tests PendingCult ure Urine 01/18/24Basic Metabolic Panel BMP 01/18/24CBC w Differential 01/18/24 [facility]20[facility] Social History Social History Date Source Social History TypeResponse Smoking Status Is there a smoker in the household? No; *Do you have concerns about tobacco use in household? No; Never (less than 100 in lifetime); Never; *Are you ready to quit? No entered on: 01/19/24 Sex Female [facility] Social History TypeResponse Smoking Status Is there a smoker in the household? No; *Do you have concerns about tobacco use in household? No; Never (less than 100 in lifetime); Never; *Are you ready to quit? No entered on: 01/19/24 Sex Female 61 [facility] Jyoti rolly Social History TypeResponse Smoking Status Is there a smoker in the household? No; *Do you have concerns about tobacco use in household? No; Never (less than 100 in lifetime); Never; *Are you ready to quit? No entered on: 01/19/24 Sex Female 61 [facility] Jyoti rolly
--- OUTSIDE RECORDS SUMMARY | 2024-09-14 12:16 | XMS_ITS | Data Portability ---
Author Organization [place] - [facility], [facility] Address [address] [place] [address] Assessment No assessment recorded. Plan of Treatment Reminders Order Date Submit Date Provider Last Modified By Organization Details Last Modified Time Details Appointments None recorded. Lab None recorded. Referral None recorded. Procedures None recorded. Surgeries total shoulder arthropla sty (SURG) 2023 024 cgreenia Not available 4 15:55:52 Imaging XR, shoulder, 2 or more view - R shoulder, 4 view rm 4 2023 024 [facility], [address], [address], [place], [address], 4 11:22:05 Medication Orders None recorded. Patient TargetsNo targets recorded. Patient InstructionsNo instructions recorded. Reason for Referral None Reported. Results Created Date Observation Date Name Description Value Unit Range Abnormal Flag Note LastModifiedBy Organization Detail LastModifiedTime 03/16/20 24 03/16/2024 XR, shoul cely, 2 or more view http:/ [email or web address] ?Encry pted=s hAaTro YD8dLq bEUv6g %2BXZw aYqtaq 0bqfl% 2Fg9IQ a4ajBk vP9nXo QUaueC m3YtLR FvZlgJ JJ8mAn HZtai3 6l5616 AC0Kpa X%2BMV 6DeUC8 mr84%3 D INTERFACE [facility] [address], [place], [address], 03/16/2024 13:45:20 03/16/20 24 03/16/2024 XR, shoul cely, 2 or more view http:/ [email or web address] ?Encry pted=s Wang YD8dLq bEUv6g %2BXZw aYqtaq 0bqfl% 2Fg9IQ a4ajBk vP9nXo QUaueC m3YtLR FvZlgJ JJ8mAn HZtai3 9t2975 AC0Kpa X%2BMV 6DeUC8 mr84%3 D INTERFACE [facility] [address], [place], [address], 03/16/2024 13:45:22 03/16/20 24 12/24/2023 MRI, shoul cely, w/o contr ast No observ ation record ed. BARCODE Not Available 2023 14:36:37 Result Notes None recorded. Problems Name Problem SNOMED Code Status Onset Date Resolution Date Notes Provider Name and Address Organization Details Recorded Time Shoulder joint pain 108834540 Active 023 Status : 'A'; Not Available [facility] 11:59:36 Problem Notes None recorded. Procedures Surgical History Date Name Laterality Status Provider Name and Address Organization Details Recorded Time Sports Shoulder completed Beba Hawkins MD [address], [place], [address], [facility] - [facility] 03/16/2024 14:09:08 Imaging Results Imaging Date Name Status LastModified by Organiz ation Details LastModified Time 03/16/2024 XR, shoulder, 2 or more view completed INTERFACE [facility] [address], [place], [address], 03/16/2024 13:45:20 03/16/2024 XR, shoulder, 2 or more view completed INTERFACE [facility] [address], [place], [address], 03/16/2024 13:45:22 12/24/2023 MRI, shoulder, w/o contrast completed BARCODE Information not available 03/16/2024 14:36:37 Procedure Notes None recorded. Medical Equipment None Reported. Allergies Allergen ID Allergen Name Allergen Category Reaction Reaction Severity Criticality Documentation Date Start Date Code Code System Note Provider Name and Address Organization Details Recorded Time 153628 latex environme nt,medica tion Not available Not available Not available 11/14/20232022 17260 91 RxNorm Not Available [facility] 16:01:48 Medications Name Sig Start Date Stop Date Status Note LastModified by Organization Details LastModified Time fluconazole 100 mg tablet TAKE 1 & 1/2 TABLET ONCE ON DAY 1 OF SYMPTOMS THEN REPEAT ON DAY 4 IF SYMPTOMS NOT FULLY RESOLVED active Not Available Not Available No t Available nystatin 100,000 unit/mL oral suspension TAKE 4ML BY MOUTH 4 TIMES DAILY FOR 7 DAYS 03/16 completed Not Available Not Available Not Available clindamycin HCl 300 mg capsule TAKE 1 CAPSULE BY MOUTH TWICE A DAY 03/16 completed Not Available Not Available Not Available azithromyci n 250 mg tablet TAKE 2 TABLETS BY MOUTH TODAY, THEN TAKE 1 TABLET DAILY FOR 4 DAYS 03/16 completed Not Available Not Available Not Available clopidogrel 75 mg tablet TAKE 1 TABLET BY MOUTH EVERY DAY 03/16 completed Not Available Not Available Not Available ketorolac 0.5 % eye drops STARTING TWO DAYS BEFORE SURGERY, INSTILL 1 DROP IN OPERATIVE EYE TWICE A DAY active Not Available Not Available No t Available cephalexin 500 mg capsule TAKE 1 CAPSULE BY MOUTH EVERY 8 HOURS X3 DAYS 03/16 completed Not Available Not Available Not Available lisinopril 10 mg tablet TAKE 1 TABLET BY MOUTH EVERY DAY active Not Available Not Available No t Available ezetimibe 10 mg tablet TAKE 1 TABLET BY MOUTH EVERY DAY 03/16 completed Not Available Not Available Not Available Tylenol 325 mg capsule Take by oral route. active Not Available Not Available No t Available Vitals Date Recorded Body height Body mass index (BMI) Body weight Provider Name and Address Organization Details Last Updated DateTime 03/16/2024 157.48 cm 25.6 kg/m2 02645.93 g PHONG SOARES [place] - [facility] 03/16/2024 13:35:25 Social History None recorded. Functional Status None recorded. Mental Status None recorded. Family History Nothing Reported. Medical History Condition Response Allergies/Hayfever N Coronary Artery Disease N Anxiety/Depression N Breathing or lung disorders N Emphysema N Nerve Disorders Y Thyroid Problems N COPD N Pacemaker N Anemia N Kidney/Bladder Problems N Vascular Disease N Heart Trouble N Heart Attack (AR) N Gastrointestinal Disease N Cholesterol N Diabetes N Autoimmune disease N Bleeding Disorder N Orthotics N Arthritis Y Seizures/Epilepsy Y Blood Clot N AIDS/HIV N Congestive Heart Failure (CHF) N Acid Reflux (GERD) N Cancer N Stroke Y Asthma N Circulation Problems N Peripheral Vascular Disease N Sleep Apnea N Hepatitis N Heart Disease N Rheumatoid Arthritis N Arrhythmia N Pulmonary Embolism N Headaches N Fibromyalgia N Hypertension Y Osteoporosis N Gynecological HistoryNo gynecological history recorded. Obstetrics History GPAL:G 0 P 0 0 0 0 Past Encounters Encounter ID Performer Location Encounter Start Date Encounter Closed Date Diagnosis/Indication Diagnosis SNOMED-CT Code Diagnosis ICD10 Code [id number] MD [facility] [address] [place] [address] 03/16/2024 13:27:29 04/02/2024 11:22:05 Pain of right shoulder joint 1862625873 6802415 M25.511 Osteoarthr itis of right glenohumeral joint 6194637740 501162 M19.011 Health Concerns Section Related Observation LastModified by Organization Detai ls LastModified Time None Recorded Concern Status LastModified by Organization Details LastModified Time None Recorded Advance Directives Directive None Recorded Payers Encounter Date Sequence Insurance Name Policy Number Policy Mcnamara Covered Member ID Mcnamara Member ID Guarantor Name 03/16/2024 1 [facility]: MEDICARE HMO BLUE (MEDICARE REPLACEMENT HMO) [id number] Bella Hinton [id number] Bella Hinton Notes Date Note Type Note Provider Name and Address Organization Details Recorded Time 03/16/2024 text/html Issue: Right glenohumeral arthritis, rotator cuff tear Interval History: This is an 83-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 Has been managing symptoms with intermittent cortisone injections through Dr. Obey rodriguez. Has also had an injection in our office a little over a year ago. Notes that these injections typically help, however most recent injection, we think December 2023, resulted in increased pain, prompting an MRI which demonstrated a rotator cuff tear in addition to the arthritis. Patient complains of pain and limited range of motion. Denies crepitus. Denies numbness or tingling, though thinks that Dr. Laird may have hit her nerve during her last injection, resulting in pain in the arm jumping for a few months, gradually getting better over time. She takes Tylenol 3 times a day. Also participating in physical therapy, but has not found this helpful. Here today for discussion of potential surgical intervention. Past family, medical, social history and review of systems have been reviewed and updated on the medical history sheet saved to the patient's chart. A 12-point review of systems is negative x12 except as noted above and/or on the medical history sheet. Examination: Pleasant 83-year-old woman in no acute distress. 5 feet 2 inches, 140 pounds. On exam of the right upper extremity, skin over the shoulder is intact. No gross atrophy. Large effusion. Diffuse tenderness to touch about the shoulder. Active and passive forward elevation 90, external rotation 30 with negative ER lag. Internal rotation L3. 4/5 strength with empty can and external rotation, 5/5 with internal rotation. Mildly positive Yergason's. Sensation intact in an axillary distribution. Fires EPL, FPL and intrinsics. Hand is warm and well-perfused. Imagin views of the right shoulder ordered and obtained at [facility] today were reviewed during the visit. These demonstrate severe glenohumeral arthritis with complete loss of glenohumeral joint space. Primarily central glenoid wear. Some medialization of the joint suggestive, with lateral edge of the tuberosity sitting just at the level of lateral edge of the acromion. No proximal migration humeral head. No significant posterior subluxation no dystrophic calcium deposition. Right shoulder MRI performed at [facility] 12/24/2023 independently reviewed by me during the visit today. This demonstrates a full-thickness tear that involves the supraspinatus. Infraspinatus is intact, though quite thin. No significant atrophy or fat filtration of the rotator cuff on T1 sagittal's beyond what I would expect at the patient at this age. Difficult to make out the subscapularis on the provided axial sequence. Severe long head biceps tendinopathy. Severe glenohumeral arthritis again appreciated, with large complex effusion. Anterior acromion is quite thin. Evidence of previous distal clavicle excision. Impression: 83-year-old uziyt-fjuq-codrgszy woman with chronic progressive right shoulder pain related to glenohumeral arthritis, with MRI also demonstrating rotator cuff tear. No lasting relief with recent cortisone injections. Plan: Discussed that definitive management of this combination of conditions would entail a reverse total shoulder arthroplasty. Technical details, risks and benefits, typical downtime recovery from surgery reviewed. Patient notes history of previous TIAs, upwards of 6, as such would recommend that we move forward with surgery at the hospital for closer monitoring with an overnight stay planned. Will require medical clearance as well as a 3D CT scan for preoperative planning purposes. Hoping to pursue surgery in July. Will repeat cortisone injection today in hopes of trying to keep her comfortable in the interim. [employer] [facility] speech recognition registered safety engineer software was used to create portions of this document. An attempt at proofreading has been made to minimize errors. Please call for corrections. Beba Hawkins MD [address] [place] [address] Suite [facility], [place], [address], [facility] - [facility] 03/16/2024 14:24:01 OBGyn Episode No OBEpisode recorded.
--- OUTSIDE RECORDS SUMMARY | 2024-09-14 12:16 | XMS_ITS | Data Portability ---
Author Organization [facility] Ellison [facility], [address] Address [address] [place] [address] Assessment No assessment recorded. Plan of Treatment Reminders Order Date Submit Date Provider Last Modified By Organization Details Last Modified Time Details Appointments None recorded. Lab None recorded. Referral None recorded. Procedures None recorded. Surgeries None recorded. Imaging None recorded. Medication Orders tobramycin 0.3 % eye drops 2023 024 [facility] #[id number], [address] [place], [address], 4 11:50:12 ciprofloxac in 0.3 % eye drops 2023 024 [facility] #[id number], [address] [place], [address], 4 15:32:48 Patient TargetsNo targets recorded. Patient InstructionsNo instructions recorded. Reason for Referral None Reported. Problems Name Problem SNOMED Code Status Onset Date Resolution Date Notes Provider Name and Address Organization Details Recorded Time Hyperten sive disorder 96401351 Active 2023 Ly stover PA - [facility] 4 11:29:12 Transien t cerebral ischemia 160638407 Completed 202303/31/2024 Removal Reason: in past Ly stover PA - [facility] 4 11:30:50 Acute conjunct ivitis of bilatera l eyes 43667863280 9104 Active 2023 Carlee Dejesus NP [address] [place], [address] [facility] - [facility] 4 15:32:05 Problem Notes None recorded. Medical Equipment None Reported. Allergies No known drug allergies Medications Name Sig Start Date Stop Date Status Note LastModified by Organization Details LastModified Time fluconazole 100 mg tablet TAKE 1 & 1/2 TABLET ONCE ON DAY 1 OF SYMPTOMS THEN REPEAT ON DAY 4 IF SYMPTOMS NOT FULLY RESOLVED 03/31 completed Not Available Not Available Not Available nystatin 100,000 unit/mL oral suspension TAKE 4ML BY MOUTH 4 TIMES DAILY FOR 7 DAYS 03/31 completed Not Available Not Available Not Available clindamycin HCl 300 mg capsule TAKE 1 CAPSULE BY MOUTH TWICE A DAY 03/31 completed Not Available Not Available Not Available azithromyci n 250 mg tablet TAKE 2 TABLETS BY MOUTH TODAY, THEN TAKE 1 TABLET DAILY FOR 4 DAYS 03/31 completed Not Available Not Available Not Available clopidogrel 75 mg tablet TAKE 1 TABLET BY MOUTH EVERY DAY 03/31 completed Not Available Not Available Not Available ketorolac 0.5 % eye drops STARTING TWO DAYS BEFORE SURGERY, INSTILL 1 DROP IN OPERATIVE EYE TWICE A DAY 03/31 completed Not Available Not Available Not Available ciprofloxac in 0.3 % eye drops PLEASE SEE ATTACHED FOR DETAILED DIRECTION S active Not Available Not Available No t Available cephalexin 500 mg capsule TAKE 1 CAPSULE BY MOUTH EVERY 8 HOURS X3 DAYS 03/31 completed Not Available Not Available Not Available tobramycin 0.3 % eye drops INSTILL 1 DROP EVERY 4 HOURS BY OPHTHALMI C ROUTE FOR 10 DAYS, FOR BOTH EYES. active Not Available Not Available No t Available lisinopril 10 mg tablet TAKE 1 TABLET BY MOUTH EVERY DAY active Not Available Not Available No t Available clobetasol 0.05 % topical ointment APPLY A THIN FILM TO THE AFFECTED AREAS TWICE A DAY FOR 2 MONTHS. active Not Available Not Available No t Available neomycin 3.5 mg/g-polymy bill B 10,000 unit/g-dexa meth 0.1 % eye oint active Not Available Not Available Not Available solifenacin 5 mg tablet TAKE 1 TABLET BY MOUTH AT BEDTIME active Not Available Not Available No t Available aspirin active Not Available Not Avail able Not Available Vitals Date Recorded Body height Body temperature Respiratory rate Heart rate Oxygen saturation Oxygen saturation in Arterial blood by Pulse oximetry Body mass index (BMI) Body weight Systolic blood pressure Diastolic blood pressure Provider Name and Address Organization Details Last Updated DateTime 4 157.48 cm 97.1 [degF] 17 /min 65 /min 97 % 97 % 25.2 kg/m2 47459.7 5 g 123 mm[Hg] 75 mm[Hg] Ly Savage PA - [facility] 4 11:34:34 Date Recorded Body height Body mass index (BMI) Body weight Oxygen saturation Oxygen saturation in Arterial blood by Pulse oximetry Heart rate Respiratory rate Body temperature Systolic blood pressure Diastolic blood pressure Provider Name and Address Organization Details Last Updated DateTime 4 157.48 cm 25.2 kg/m2 27024.7 5 g 96 % 96 % 73 /min 18 /min 97.8 [degF] 122 mm[Hg] 65 mm[Hg] Geovanna Dumont PA - [facility] 4 15:03:30 Social History Question Answer Notes LastModified by [employer] ion Details LastModified Time Tobacco Smoking Status Never Smoker Ly stover PA - [facility] 03/31/2024 11:29:49 What Is Your Level Of Alcohol Consumption? None Information not available 03/31/2024 Are You Currently Employed? No Information not available 03/31/2024 Have You Had A Flu Shot This Season? No Information not available 03/31/2024 If No, Would You Like A Flu Shot Today? No Information not available 03/31/2024 Are You Passively Exposed To Smoke? No Information no t available 03/31/2024 Do You Use Any Illicit Or Recreational Drugs? No Information not available 03/31/2024 Have You Recently Traveled Abroad? No Information not available 03/31/2024 Do You Or Have You Ever Used Any Other Forms Of Tobacco Or Nicotine? No Information not available 03/31/2024 Sex: Unknown Functional Status None recorded. Mental Status None recorded. Family History Relationship Description Onset Age of this Age Resolved Age Notes LastModified by Organization Details LastModified Time Father No current problems or disability Not available 03/13 11:29:17 Mother No current problems or disability [email or web address] Not available 03/13 11:29:17 Medical History No medical history recorded. Gynecological History Statement/Question Response Is there any chance of ? No LMP N/A Obstetrics History GPAL:G 0 P 0 0 0 0 Past Encounters Encounter ID Performer Location Encounter Start Date Encounter Closed Date Diagnosis/Indication Diagnosis SNOMED-CT Code Diagnosis ICD10 Code [id number] [address] [place] [address] 07/11/2017 15:53:01 07/11/2017 16:57:46 [id number] [facility] [address] [facility] [address] [place] [address] 03/31/2024 11:15:13 03/31/2024 11:50:58 Internal hordeolum of left lower eyelid 0922984235 90336 H00.025 [id number] Carlee [facility]jesus [facility] [address] [place] [address] 04/07/2024 14:08:17 04/07/2024 15:40:17 Acute conjunctivitis of bilateral eyes 7215868099 91065 H10.33 Health Concerns Section Related Observation LastModified by Organization Detai ls LastModified Time None Recorded Concern Status LastModified by Organization Details LastModified Time None Recorded Advance Directives Directive None Recorded Payers Encounter Date Sequence Insurance Name Policy Number Policy Mcnamara Covered Member ID Mcnamara Member ID Guarantor Name 07/11/2017 1 [facility]: MEDICARE HMO BLUE (MEDICARE REPLACEMENT HMO) [id number] Bella H Nicoli [id number] Bella H Nicoli 03/31/2024 1 [facility]: MEDICARE HMO BLUE (MEDICARE REPLACEMENT HMO) [id number] Bella H Nicoli [id number] Bella H Nicoli 04/07/2024 1 [facility]: MEDICARE HMO BLUE (MEDICARE REPLACEMENT HMO) [id number] Bella H Nicoli [id number] Bella H Nicoli Notes Date Note Type Note Provider Name and Address Organization Details Recorded Time 07/20/202 4 text/html 83 y/o female here with L eye discomfort and bumps to the lower lid for a few days, also with irritation to the left eye. R eye is irritated as well. Pharmacist told her to use some lubricating drops which aren't helping much GERARD Green [address] [place], [address], [facility] 03/31/2024 11:53:18 4 text/html Eye problemsReported bypatient.source of patient informationInformation obtained from patient; Patient arrived at Urgent Care ambulatory Location:bilateral Eye Symptoms:no sensitivity to light; no pain in the eyes; no blurred vision;redness Severity:moderate whit Alleviating factors:nothing helps F/U eye irritation . was treated with tobramycin which she states is not working and causing her eyes to burn . Carlee Dejesus NP [address] [place], [address], [place] 05/04/2024 11:34:57 OBGyn Episode No OBEpisode recorded.
== END 2024-09-13 10:41 | disposition home or self-care (01) ==
LOC: HO.HOSX 10:40
PROVIDERS: Visit Provider Orthopaedic Surgery
DX: M19.011 Primary osteoarthritis, right shoulder (principal); M25.511 Pain in right shoulder
CPT/HCPCS: 20610; 73030; 99212; J1010; J2003

== ENCOUNTER 2024-09-13 10:50 | Outpatient (AMB) | payer MEDICARE, SELFPAY ==
[2024-09-13 11:11] VITALS: BMI 25.1
--- NOTE | 2024-09-13 11:11 | A.OFFVIS_ITS ---
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 The patient states that she has had cortisone injections in the past. The most recent injection was approximately 6 months ago. That injection gave her temporary relief. The patient reports difficulty lifting her right hand to shoulder height. The patient has been told that she might be a candidate for total shoulder replacement surgery. She has tried Tylenol and anti-inflammatory medicines which gave her minimal relief. Allergies IV Contrast Allergy (Severe, Uncoded 09/13/24 11:14) Rash/swelling Latex Allergy (Severe, Uncoded 09/13/24 11:14) Rash/blisters Medical Tape Allergy (Severe, Uncoded 09/13/24 11:14) Rash/blisters amoxicillin Allergy (Intermediate, Uncoded 09/13/24 11:14) Swelling sulfa drugs Allergy (Intermediate, Uncoded 09/13/24 11:14) Rash Medication List - Last Reviewed 09/13/24 by MJ Stewart acetaminophen 1,000 mg PO TID PRN aspirin 81 mg PO DAILY gkjvlq-gylg-vucm-levomef-silic 10-50-500-0.5 mg 1 cap PO DAILY calcium carbonate-vitamin D3 600 mg-5 mcg (200 unit) 1 tab PO DAILY cyanocobalamin (vitamin B-12) 100 mcg PO DAILY ergocalciferol (vitamin D2) 1,250 mcg PO QWEEK lisinopril 10 mg PO DAILY omega 8-bgz-rar-fish oil 1,000 (120-180) mg (Fish Oil) 1 cap PO TID solifenacin 5 mg PO BEDTIME PFSH Medical History [place] (hard of hearing) Environmental allergies 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) Osteoarthritis Lumbar stenosis Thyroid nodule History of diverticulosis Asthma Hx of radiation therapy Invasive ductal carcinoma of right breast Arthritis Surgical History History of lumpectomy of left breast (06/12/24) Hx of cataract extraction Hx of umbilical hernia repair Hx of kyphoplasty Hx of total knee replacement (~2020) History of total mastectomy of right breast (2007) History of right breast biopsy History of incisional hernia repair History of hysterectomy Family History Mother Breast cancer Social History Household Members: Significant Other Are you a primary daycare director to a significant other at home: No Do you presently have visiting nurse or other home services: No Alcohol intake: never Patient Tobacco Use Status: Never used Tobacco service: No Current occupational status: disabled Female Reproductive History Menstrual Age of Menarche: 11 Physical Exam Vital Signs: BMI result Body Mass Index 25.1 Const Other: Well-nourished well-developed very friendly female awake alert and oriented x3 in no acute distress Extrem Other: Bilateral upper extremity examination shows good capillary refill, no skin lesions noted, normal sensation light touch Right shoulder examination shows very limited active and passive range of motion, crepitus with range of motion, pain with range of motion, no instability Results Reviewed Results Reviewed: X-rays of the patient's right shoulder show end-stage glenohumeral joint degenerative changes with hzmq-py-kfir arthritis, subchondral sclerosis, no acute bony abnormalities Assessment & Plan Assessment & Plan (1) Arthritis of right shoulder region: Code(s): M19.011 - Primary osteoarthritis, right shoulder Category: Medical Plan Ms. Hinton presents with right shoulder pain and limited range of motion due to end-stage glenohumeral joint arthritis. The risks and benefits of a right shoulder cortisone injection were discussed at length with the patient. The patient wished to proceed. She tolerated the injection well. The patient also requests an appointment with Dr. Martinez to further discuss the risks and b enefits of reverse total shoulder replacement surgery. I will arrange for this appointment. If the patient decides not to have surgery she will return to see me in 3 months' time for possible repeat cortisone injection. Feel free to call me at any time should questions regarding her orthopedic management arise. I spent 22 minutes in reviewing the patient's records and imaging studies, seeing the patient and documenting in the medical record. Orders: Orders AMB Joint Injection/Aspiration Today M19.011 - Primary osteoarthritis, right shoulder XR shoulder RT min 2V Today M25.511 - Pain in right shoulder Coding Level of Care Code Est Pt Level 3 (00695) Complex EM visit Add On G2211 Diagnoses Arthritis of right shoulder region M19.011
--- OUTSIDE RECORDS SUMMARY | 2024-09-13 11:32 | XMS_ITS | Continuity of Care Document ---
Author Name [facility] Care Team Providers Care Family Dentist Name Role Phone [facility] Unavailable Unavailable Problems Problem Status Onset Date Classification Date Reported Comments Source Altered mental status, unspecified Active 01/18/2024 [facility] Medications Medication Details Route Status Patient Instructions Ordering Provider Order Date Source Keflex 500 mg oral capsule = 1 Cap, ORAL, Q8H, X 3 Day(s), # 9 Cap, Indication= UTI, complicated, 0 Refill(s), Acute, Pharmacy: [facility] [id number] [facility], 157.5, cm, 01/19/24 1:08:00 PDT, Height/Length (cm), 73.9, kg, 01/19/24 1:08:00 PDT, Dose calculation weight (kg) Active 01/19/20 24 60 [facility] aspirin 81 mg, ORAL, DAILY, 0 Refill(s), Maintenance Active 01/19/20 24 60 [facility] Allergies, Adverse Reactions, Alerts Substance Category Reaction Severity Reaction type Status Date Reported Comments Source sulfa drugs Assertion Drug allergy Active 60 [facility] Contrast Dye Assertion Itching (finding) Drug allergy Active 60 [facility] Tape Assertion Eruption of skin (disorder) Drug allergy Active 60 [facility] statins Assertion Drug allergy Active 60 [facility] Results Order Name Results Value Reference Range Date Interpretation Comments Source A1C Glycated Hgbs - Hemoglobin A1C 5.4 % - <=5.6 01/18 NA For screening for diabetes: HgbA1C level of 5.7-6.4% is consistent with increased risk of diabetes (pre-diabetes) ; suggest follow-up studies per clinical guidelines. For diagnosis of diabetes(& gt; = 6.5%): The diagnosis of diabetes in an asymptomatic person should not be made on the basis of a single abnormal plasma glucose or HbA1c value. At least one additional HbA1c or plasma glucose test result with a value in the diabetic range is required, either fasting, from a random (casual) sample, or from the oral glucose tolerance test (OGTT). The diagnosis should be made by the best technology available, avoiding blood glucose monitoring meters and single-use HbA1c test kits (except where this is the only option available or where there is a stringent chief vendor quality program in place).In the absence of unequivocal hyperglycemia result should be confirmed to repeat testing. Point of care assay methods are NOT recommended for the diagnosis of diabetes. For monitoring of known adult non- diabetes patients: Decreased vascular complications are reported with HgbA1C of <7%, Actual glycemic HgbA1C goal should be customized to individual patient. Samples with >15% A1c, should be suspected of having a hemoglobin variant and recommend testing for Fructosamine. *Reference Range based on ADA Guidelines. [facility] A1C Sex assigned at Female 01/18 [facility] AutoDif f* Auto Neutrophil Percent 70.6 % 49.4 - 72.6 01/18 [facility] AutoDif f* Auto Neutrophil Absolute 8.1 K/uL 2.0 - 6.4 01/18 H [facility] AutoDif f* Auto Lymphocyte Percent 15.4 % 18.0 - 40.0 01/18 L [facility] AutoDif f* Auto Lymphocyte Absolute 1.8 K/uL 1.5 - 3.0 01/18 NA [facility] AutoDif f* Auto Monocyte Percent 4.7 % 4.9 - 10.1 01/18 L [facility] AutoDif f* Auto Monocyte Absolute 0.5 K/uL 0.3 - 0.8 01/18 NA [facility] AutoDif f* Auto Eosinophil Percent 5.3 % 0.0 - 5.0 01/18 H [facility] AutoDif f* Auto Eosinophil Absolute 0.6 K/uL 0.0 - 0.4 01/18 H [facility] AutoD[employer] f* Auto Basophil Percent 4.0 % 0.2 - 1.2 01/18 H [facility] AutoDif f* Auto Basophil Absolute 0.5 K/uL 0.0 - 0.1 01/18 H [facility] AutoDif f* Auto NRBC % 0 % 01/18 NA [facility] AutoDif f* Sex assigned at Female 01/18 NA [facility] Sodium Level 140 MMOL/L 135 - 145 01/18 NA [facility] Potassium Level 3.8 MMOL/L 3.5 - 5.0 01/18 NA [facility] Chloride Level 107 MMOL/L 101 - 111 01/18 NA [facility] BMP CO2/Carbon Dioxide 26 MMOL/L 24 - 32 01/18 NA [facility] Anion Gap 7.0 5.0 - 15.0 01/18 NA [facility] Glucose, Random 82 MG/DL - <=200 01/18 NA [facility] BUN 13 MG/DL 8 - 20 01/18 NA [facility] BMP Creatinine 0.49 MG/DL 0.60 - 1.30 01/18 L [facility] BUN/Creat Ratio 26.5 12.0 - 20.0 01/18 H [facility] Osmolality, Calculated 279 mOsm/L 01/18 NA [facility] Calcium Level 8.3 MG/DL 8.4 - 10.2 01/18 L [facility] eGFR >90 mL/min/1.73 m2 01/18 NA This eGFR equation utilizes the 2020 CKD-EPI creatinine equation.Stage s GFRNone or slight 1 >90 ml/minMild 2 60-89 ml/minModerate 3 30-59 ml/minSevere 4 15-29 ml/minApproach ing Failure 5 <15 ml/min [facility] BMP Sex assigned at Female 01/18 NA [facility] CBC WBC 11.5 K/uL 3.7 - 10.5 01/18 H [facility] CBC RBC 5.90 M/uL 3.61 - 5.37 01/18 H [facility] CBC HGB 12.5 g/dL 11.2 - 15.8 01/18 NA [facility] CBC HCT 40.6 % 32.9 - 49.0 01/18 NA [facility] CBC MCV 68.8 fL 80.1 - 99.2 01/18 L [facility] CBC MCH 21.2 pg 25.8 - 33.5 01/18 L [facility] CBC MCHC 30.8 g/dL 31.0 - 37.0 01/18 L [facility] CBC RDW 18.6 % 12.0 - 15.8 01/18 H [facility] CBC PLT 499 K/uL 139 - 422 01/18 H [facility] CBC MPV 7.90 fL 6.84 - 10.28 01/18 NA [facility] CBC Sex assigned at Female 01/18 NA [facility] LipidP Total Cholesterol 170 MG/DL 135 - 215 01/18 NA Cholesterol Risk:<200 mg/dL [id number] to 239 mg/dL Borderline>239 mg/dL High [facility] LipidP Triglycerides 63 MG/DL 36 - 200 01/18 NA Triglyceride Risk: Low < 150 Borderline High 150 to 199 High 200 to 499 Very High >=500 [facility] LipidP HDL Cholesterol 70 MG/DL 29 - 89 01/18 NA [facility] LipidP LDL Cholesterol, Calc 87 MG/DL 62 - 160 01/18 NA LDL Risk: < 130 Low; 130-159 Borderline; > 160 High [facility] LipidP Total Chol/HDL Ratio 2.4 0.0 - 13.5 01/18 NA MEN: Average Risk is 5.0, 2X Risk is 9.6WOMEN: Average Risk is 4.5, 2X Risk is 7.1 [facility] LipidP LDL/HDL Ratio 1.2 01/18 NA [facility] LipidP Sex assigned at Female 01/18 NA [facility] LipidP VLDL Cholesterol, Calc 13 MG/DL 01/18 [facility] PCT Procalcitonin Level <0.05 NG/ML - <=0.50 01/18 [facility] PCT Sex assigned at Female 01/18 [facility] TSH3 TSH Thyroid Stim Hormone 3RD Generation 2.86 uIU/mL 0.40 - 5.00 01/18 [facility] TSH3 Sex assigned at Female 01/18 [facility] VitB12 Vitamin B12 Level 634.0 PG/ML 180.0 - 914.0 01/18 NA Reference Range for Vitamin B12:Normal Range 180 - 914 pg/mLIndetermi bola Range 145 - 180 pg/mLDeficient Range <= 145 pg/mL [facility] VitB12 Sex assigned at Female 01/18 [facility] POC Gluc POCT - Glucose (Capillary) 86 MG/DL 65 - 110 01/18 NA Device Code: [id number] ty: 0060Location: 60 MED/SURSerial Number: [id number] erator Code: [id number] Name: Aris BADILLO Lot: [id number] Comment: Cleaned Meter [facility] POC Gluc Sex assigned at Female 01/18 [facility] Lactic WB Lactic Acid WB 0.64 MMOL/L 0.56 - 1.39 01/18 [facility] Lactic WB Sex assigned at Female 01/18 [facility] C Blood C Blood Final:No growth at 5 days.Sex assigned at :Femal e 01/18 [facility] UACSIf UA - Source/Collec t Type Urine Voided 01/18 NA Ascorbic Acid, if present in high concentrations , can cause false negative results on Bilirubin, Blood, Glucose and Nitrite determinations . In addition, high concentrations of MESNA (>1140mg/dL) may falsely elevate Bilirubin, Blood, Leukocyte Esterase and Nitrite results. The presence of MESNA can also cause false negative Glucose determinations . Please correlate with clinical and dietary history [facility] UACSIf UA - Appearance Clear Clear 01/18 NA [facility] UACSIf UA - Color Yellow 01/18 NA [facility] UACSIf UA - pH 6.0 5.0 - 8.0 01/18 NA [facility] UACSIf UA - Specific Miller 1.030 1.010 - 1.025 01/18 * [facility] UACSIf UA - Protein Negative Negative 01/18 NA [facility] UACSIf UA - Glucose Negative Negative 01/18 NA [facility] UACSIf UA - Ketones Negative Negative 01/18 NA [facility] UACSIf UA - Bilirubin Negative Negative 01/18 NA [facility] UACSIf UA - Blood Negative Negative 01/18 NA [facility] UACSIf UA - Urobilinogen Negative Negative 01/18 NA [facility] UACSIf UA - Nitrites Negative Negative 01/18 NA [facility] UACSIf UA - Leukocyte Esterase Small Negative 01/18 * [facility] UACSIf Urine Culture Y/N Yes 01/18 NA [facility] UACSIf UA - WBC 7 /HPF 0 - 5 01/18 H [facility] UACSIf UA - RBC <1 /HPF 0 - 2 01/18 NA [facility] UACSIf UA - Bacteria Negative Negative 01/18 NA [facility] UACSIf UA - Epithelials, Squamous Few 0 - 5 01/18 NA [facility] UACSIf Sex assigned at Female 01/18 NA [facility] C Urine C Urine Final:40,00 0 cfu/ml Three or more bacterial species isolated from urine indicating superficial or fecal contaminati on. Suggest recollectio n if symptoms persist.Sex assigned at :Femal e 01/18 Performed at: [facility], [address] [place] [address], [employer] Project Planner: Annika Robertson MD [facility] CLIA Treponema pallidum Ab CLIA Nonreactive Non Reactive 01/18 NA LIMITATIONS OF THE PROCEDURE*If the Alinity i Syphilis TP results are inconsistent with clinical evidence, additional testing is suggested to confirm the result.*A reactive test result for treponemal antibodies is not diagnostic of syphilis without additional serologic testing and a full clinical evaluation.*Fa lse reactive results can be expected with any test kit. The proportion of these falsely reactive specimens is dependent upon the specificity of the test kit, specimen integrity, and the characteristic s of the local population being screened.*A nonreactive treponemal test result does not exclude the possibility of exposure to or infection with syphilis. Antibodies may be at low or undetectable levels in incubating or early primary disease and in some clinical conditions.*Re sults in samples from immunosuppress ed patients or from patients with disorders leading to immunosuppress ion should be interpreted with caution.*The detection of treponemal antibodies may indicate recent, past, or successfully treated syphilis. This test cannot distinguish between active and treated infection, and therefore may not be used to determine response to therapy, relapse, or reinfection.*A ssay interference due to circulating antibodies against yaws, pinta, and bejel has not been evaluated. Cross-reactivi ty with these treponemal disease conditions is to be expected. [facility] CLIA Sex assigned at Female 01/18 NA [facility] AutoDif f* Auto Neutrophil Percent 75.9 % 49.4 - 72.6 01/18 H [facility] AutoDif f* Auto Neutrophil Absolute 11.2 K/uL 2.0 - 6.4 01/18 H [facility] AutoDif f* Auto Lymphocyte Percent 14.5 % 18.0 - 40.0 01/18 L [facility] AutoDif f* Auto Lymphocyte Absolute 2.1 K/uL 1.5 - 3.0 01/18 NA [facility] AutoDif f* Auto Monocyte Percent 5.1 % 4.9 - 10.1 01/18 NA [facility] AutoDif f* Auto Monocyte Absolute 0.8 K/uL 0.3 - 0.8 01/18 NA [facility] AutoDif f* Auto Eosinophil Percent 4.2 % 0.0 - 5.0 01/18 NA [facility] AutoDif f* Auto Eosinophil Absolute 0.6 K/uL 0.0 - 0.4 01/18 H [facility] AutoDif f* Auto Basophil Percent 0.3 % 0.2 - 1.2 01/18 NA [facility] AutoDif f* Auto Basophil Absolute 0.0 K/uL 0.0 - 0.1 01/18 NA [facility] AutoDif f* Auto NRBC % 0 % 01/18 NA [facility] AutoDif f* Sex assigned at Female 01/18 NA [facility] CBC WBC 14.8 K/uL 3.7 - 10.5 01/18 H [facility] CBC RBC 6.16 M/uL 3.61 - 5.37 01/18 H [facility] CBC HGB 13.4 g/dL 11.2 - 15.8 01/18 NA [facility] CBC HCT 42.5 % 32.9 - 49.0 01/18 NA [facility] CBC MCV 68.9 fL 80.1 - 99.2 01/18 L [facility] CBC MCH 21.8 pg 25.8 - 33.5 01/18 L [facility] CBC MCHC 31.6 g/dL 31.0 - 37.0 01/18 NA [facility] CBC RDW 18.4 % 12.0 - 15.8 01/18 H [facility] CBC PLT 534 K/uL 139 - 422 01/18 H [facility] CBC MPV 7.60 fL 6.84 - 10.28 01/18 NA [facility] CBC Sex assigned at Female 01/18 NA [facility] Sodium Level 137 MMOL/L 135 - 145 01/18 NA [facility] Potassium Level 4.3 MMOL/L 3.5 - 5.0 01/18 NA [facility] Chloride Level 102 MMOL/L 101 - 111 01/18 NA [facility] CO2/Carbon Dioxide 28 MMOL/L 24 - 32 01/18 NA [facility] Anion Gap 7.0 5.0 - 15.0 01/18 NA [facility] Glucose, Random 104 MG/DL - <=200 01/18 NA [facility] BUN 19 MG/DL 8 - 20 01/18 NA [facility] Creatinine 0.67 MG/DL 0.60 - 1.30 01/18 NA [facility] BUN/Creat Ratio 28.4 12.0 - 20.0 01/18 H [facility] Osmolality, Calculated 276 mOsm/L 01/18 NA [facility] Calcium Level 9.0 MG/DL 8.4 - 10.2 01/18 NA [facility] Total Protein 7.4 g/dL 6.4 - 8.3 01/18 [facility] Albumin Level 4.0 g/dL 3.2 - 5.5 01/18 [facility] Globulin Level 3.4 g/dL 1.5 - 3.5 01/18 NA [facility] A/G Ratio 1.2 1.1 - 2.2 01/18 NA [facility] CMP ALP 88 IU/L 30 - 115 01/18 NA [facility] CMP ALT 14 IU/L 5 - 36 01/18 NA [facility] CMP AST 20 IU/L 10 - 42 01/18 NA [facility] CMP Bilirubin, Total 0.3 MG/DL 0.2 - 1.2 01/18 NA [facility] CMP eGFR 87 mL/min/1.73 m2 01/18 NA This eGFR equation utilizes the 2020 CKD-EPI creatinine equation.Stage s GFRNone or slight 1 >90 ml/minMild 2 60-89 ml/minModerate 3 30-59 ml/minSevere 4 15-29 ml/minApproach ing Failure 5 <15 ml/min [facility] CMP Sex assigned at Female 01/18 NA [facility] MDW MDW 19.1 AU 0.0 - 19.9 01/18 NA MDW values greater than 20.0 together with other laboratory findings and clinical information, aids in identifying patients with sepsis or at increased risk of developing sepsis within the first 12 hours of hospital admission. MDW results greater than 20.0 (U) should be interpreted in association with other clinical information and diagnostic testing as a proportion of patients without sepsis may have an elevated MDW value at baseline. MDW values less than or equal to 20.0 cannot rule out sepsis or the development of sepsis within 12 hours of hospital admission. The Early Sepsis Indicator should not be used as the sole basis to determine the absence of sepsis. The predictive value of the Early Sepsis Indicator (ESId) for identifying sepsis in patients with hematological abnormalities has not been established. [facility] MDW Sex assigned at Female 01/18 NA [facility] PT PT - Patient 13.2 SECNDS 12.0 - 14.7 01/18 NA [facility] PT PT - INR 1.0 0.8 - 1.2 01/18 NA ANTICOAGULATED PATIENT'S LOW RISK, INR 2.0 TO 3.0ANTICOAGULA BRIGID PATIENT'S HIGH RISK, INR 2.5 TO 3.5 [facility] PT Sex assigned at Female 01/18 [facility] PTT PTT - Patient 40 SECNDS 22 - 36 01/18 H Therapeutic Range:Heparin Units PTT Range0.3 - 0.7 IU/mL 73.4 - 96.20.1 - 0.3 IU/mL 61.9 - 73.4 [facility] PTT Sex assigned at Female 01/18 NA [facility] TROPHS Troponin I High Sensitivity 11 ng/L 0 - 15 01/18 NA Elevated TnI results can be seen in any condition resulting in myocardial cell damage. These include, but are not limited to myocardial infarction, myocarditis, trauma, cardiac surgery, and congestive heart failure. It may also be elevated in some patients with renal failure and pulmonary embolism. Please correlate results with all other clinical findings. In some cases, serial TnI testing may be helpful for interpretation . [facility] TROPHS Sex assigned at Female 01/18 NA [facility] POC Gluc POCT - Glucose (Capillary) 118 MG/DL 65 - 110 01/18 H Device Code: 60 ERCFacility: 0060Location: 60 ERSerial Number: [id number] erator Code: [id number] Name: Dunia Lau Lot: [id number] Comment: Physician Notified [facility] POC Gluc Sex assigned at Female 01/18 NA [facility] POC PT/INR POCT - INR 1.3 1.0 - 1.3 01/18 NA [facility] POC PT/INR Sex assigned at Female 01/18 NA [facility] Diagnostic Reports Report Value Date Source MRI Brain WO Contrast Exam: MRI Brain wi thout contrast Indication: Neurologic deficits, stroke Comparison: CT head dated 01/18/2024 Technique: Utilizing a high-field MR scanner, an MRI of the brain was performed without intravenous contrast using multiple sequences in multiple planes. Findings: The ventricles, cisterns and sulci are normal for the patient's age. There is no midline shift. There is no extra-axial fluid collection. There is no evidence of acute intracranial hemorrhage. There is no evidence of restricted diffusion to suggest acute infarct. The white matter is within normal limits. The basal ganglia and thalami are unremarkable. The brainstem and cerebellum are within normal limits. The sellar and parasellar regions are unremarkable. The visualized paranasal sinuses are clear. The mastoid air cells are clear. The orbits are unremarkable. The bony calvarium is unremarkable. The soft tissues of the scalp are unremarkable. Impression: No evidence of acute infarct. No evidence of acute intracranial hemorrhage, midline shift or mass effect. If you are a provider and would like to contact the interpreting physician or one of the staff members, please call . For patients who have questions in regard to this examination, please contact your referring doctor directly. 01/19/[address] [facility] [address] Brain WO Contrast Exam: CT Head Indication: Code stroke. Comparison: None available. Technique: Utilizing a multislice CT scanner, a CT of the head was performed without intravenous contrast. All CT scans at this facility use dose modulation, iterative reconstruction, and/or weight based dosing when appropriate to reduce radiation dose to as low as reasonably achievable. CTDIvol (mGy): 27.98 DLP (mGy-cm): 457 Findings: The ventricles, cisterns and sulci are mildly enlarged for the patient's age compatible with cerebral volume loss. There is no midline shift. There is no extra-axial fluid collection. There is no evidence of acute intracranial hemorrhage. There is mild nonspecific periventricular white matter hypodensity probably secondary to chronic small vessel ischemic disease. The staley-white differentiation is maintained. The basal ganglia and thalami are unremarkable. The brainstem and cerebellum are within normal limits. The sellar and parasellar regions are unremarkable. There are atherosclerotic calcifications of bilateral carotid siphons. The visualized paranasal sinuses are clear. The mastoid air cells are clear. The orbits are unremarkable. The bony calvarium is unremarkable. The soft tissues of the scalp are unremarkable. Impression: 1. No evidence of acute intracranial hemorrhage, midline shift or mass effect. 2. Mild generalized parenchymal volume loss with mild white matter changes in bilateral cerebral hemispheres, which are nonspecific but can be seen with chronic microvascular ischemia. If you are a provider and would like to contact the interpreting physician or one of the staff members, please call . For patients who have questions in regard to this examination, please contact your referring doctor directly. Addendum Results were relayed by the radiologist academic affairs assistant to Dr. Carter on 01/18/2024 8:49 p.m. 01/19/2024 [facility] Chest 1 Vw Portable Exam: X-ray Chest 1- view, AP view Indication: Shortness of breath Comparison: None available. Technique: An AP view of the chest is provided. Findings: The lungs are clear. There is no pneumothorax or pleural effusion. The cardiomediastinal silhouette is unremarkable. There is no significant calcification of the thoracic aorta. The osseous structures are unremarkable. Impression: No evidence of acute disease. If you are a provider and would like to contact the interpreting physician or one of the staff members, please call . For patients who have questions in regard to this examination, please contact your referring doctor directly. 01/19/[address] [facility] [address] Angio Head/Neck W Contrast Exam: CT Angiogram Brain with contrast, CT Angiogram Neck with contrast Indication: Code stroke. Comparison: CT head from same date. Technique: Utilizing a multislice CT scanner, a CT angiogram of the brain and neck was performed after the administration of 90 mL Isovue 370 intravenous contrast. Coronal and sagittal reformatted images and 3D reconstructed images are also provided for evaluation. All CT scans at this facility use dose modulation, iterative reconstruction, and/or weight based dosing when appropriate to reduce radiation dose to as low as reasonably achievable. CTDIvol (mGy): 43.03 DLP (mGy-cm): 1354 Findings: CTA brain: The intracranial internal carotid arteries are without significant stenosis, dissection or aneurysm. Trace calcified atherosclerotic plaque in bilateral carotid siphons without significant luminal narrowing. origin of the right posterior cerebral artery. The right P1 segment is not visualized. The anterior, middle, and posterior cerebral arteries are without significant stenosis or aneurysm. The anterior communicating artery region is unremarkable. The right posterior communicating artery is prominent and patent. The left posterior communicating artery is not visualized. Posterior circulation is left dominant. The intracranial vertebral arteries are without significant stenosis, dissection or aneurysm formation. The basilar artery is without significant stenosis, dissection or aneurysm formation. CTA neck: Mild calcified atherosclerotic plaque in the thoracic aortic arch and origins of the great vessels without significant luminal narrowing. The common carotid arteries are without significant stenosis, dissection or aneurysm. The internal carotid arteries are without significant stenosis, dissection or aneurysm. Mild calcified atherosclerotic plaque at bilateral carotid bifurcations without significant luminal narrowing. The vertebral arteries are without significant stenosis, dissection or aneurysm. Soft tissue structures of the neck are unremarkable. The visualized proximal airway is patent. The osseous structures are unremarkable. Impression: 1. No large vessel occlusion, flow-limiting stenosis, or aneurysm of the intracranial arteries. 2. No evidence of flow-limiting stenosis, dissection or aneurysm formation of the carotid and vertebral arteries in the neck. Note: Measurement of carotid stenosis is based on velocity parameters that correlate the residual internal carotid diameter with that of the more distal vessel in accordance with [place] Symptomatic Carotid Endarterectomy Trial (NASCET). If you are a provider and would like to contact the interpreting physician or one of the staff members, please call . For patients who have questions in regard to this examination, please contact your referring doctor directly. 01/19/2024 [facility] Consultation Notes Results Value Date Source Neurology Consult note Patient: VIJAY CURRAN H ? Age: 83 years?Legal Sex: FEMALE?: 1940 Chief Complaint BIB family c/o difficulty speaking at 1999, was unable to complete a sentence. AOx3, unsure of year, Resp E/U, pt asking repetitive questions. 06/21 shoulder pain since last night. Baseline AOx4. 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 She came into the ER on 01/18 due to difficulty speaking, and confusion that lasted about 20 mins.? Per family at bedside she was talking on the phone when her speech became incomprehensible. This lasted about 20 mins and then she started to become more oriented and speaking more clearly. Family that witnessed the event did not notice any facial droop, patient was able to walk with a normal gait to the car. Patient states this was different than her previous TIAs, she describes her previous TIAs as being episodes of dizziness. No body stiffening, jerking or incontinence was noted at the time of the event. Code stroke was called upon arrival to ED/ and teleneuro evaluated patient.? Not a TNK candidate.? Telemetry neuro?did not feel it was an acute stroke.? CTA was neg for LVO or hemodynamically significant stenosis. Patient was found to have UTI, with elevated WBCs. Pt was noted to be hypertensive upon admission with SBP in the 170s. BP has now normalized. ? Patient is currently A/Ox4, no focal weakness. No vision disturbance. Review of Systems A 12 point review of systems was taken. Pertinent positives as above otherwise negative.? Physical Exam Vitals and Measurements T: 97.4 F HR: 77(Monitored) HR: 76 RR: 18 BP: 138/71 SpO2: 97% O2 Delivery: Room air HT:?157.5 cm?WT:?73.9 kg(Dose Calc Wt.)?WT:?73.9 kg?BMI:?29.79 kg/m2 MENTAL STATUS EXAM: Awake and oriented to person, time, place and situation. Speech is fluent. Following simple one step commands. CRANIAL NERVES: 2-12 grossly intact. Pupils are round and reactive to light. Extraocular movements are intact. No ptosis. No nystagmus. Facial sensation is intact to light touch bilaterally. No evidence of facial droop. ?Hearing is intact bilaterally. Soft palate elevation is symmetric. Tongue is midline. MOTOR:?Moves all extremities spontaneously and equally.?No pronator drift.? REFLEXES: Symmetric SENSATION: Intact to light touch and temperature sense in all four extremities.? COORDINATION: Finger to nose intact bilaterally. No evidence of dysmetria, resting, postural or kinetic tremors. GAIT: Did not assess ? Assessment/Plan _ IMPRESSIONS: 1. Suspect TIA vs infectious encephalopathy due to UTI. Pt has returned to baseline. FU with MRI brain. 2. Hypertensive upon admission ? PLAN: - Tele - Antibiotics per primary for UTI -?Aspirin 81mg daily -?Pt is?allergic to?statins - MRI Brain no contrast pending - TTE pending - Neurochecks Q4H - Check Hgb A1C, - lipid panel (LDL 87) - Permissive hypertension x24 hours, may use labetalol 10mg PRN BP >220/110. -?HOB 30 degrees for aspiration risk - SCDs - ST/OT/PT - Neuro to follow - Patient care discussed w Dr. Arellano who agrees w this assessment and plan ? ? Patient Education High Cholesterol Allergies Contrast Dye?(Itching) Tape?(Rash) statins sulfa drugs Problem List Active Problems No qualifying data Inactive Problems No qualifying data Medications Inpatient Allergy Documented, Allergy Review, N/A, As directed Allergy Documented, Allergy Review, N/A, As directed Allergy Documented, Allergy Review, N/A, As directed aspirin, 81 mg, 1 Tab, CHEW, DAILY Benadryl, 25 mg, 1 Cap, ORAL, QBedtime, PRN dextrose, 25 mL, IV PUSH, As directed, PRN dextrose, 50 mL, IV PUSH, As directed, PRN glucagon, 1 mg, SUBQ, As directed, PRN HEParin, 5000 units, 1 mL, SUBQ, Q8H labetalol, 10 mg, 2 mL, IV PUSH, Q1HR, PRN Rocephin, 1 gm, IV PUSH, [id number] Sodium Chloride 0.9% IV Tubing Flush (ONE) 250 mL, 250 mL, IV Sodium Chloride 0.9% IV Tubing Flush (TWO) 250 mL, 250 mL, IV Sodium Chloride 0.9% Saline Flush, 10 mL, IV FLUSH, Q12H Sodium Chloride 0.9% Saline Flush, 10 mL, IV FLUSH, As directed, PRN Tylenol, 500 mg, 1 ea, ORAL, QBedtime, PRN Home aspirin, 81 mg, ORAL, DAILY Lab Results ? Labs All 24H ?Lab ?Results ?Date MDW? 19.1 units? 01/18/24 20:40 PDT Glycated Hgbs - Hemoglobin A1C? 5.4 %? 01/19/24 06:42 PDT HDL Cholesterol? 70 mg/dL? 01/19/24 06:42 PDT LDL Cholesterol, Calc? 87 mg/dL? 01/19/24 06:42 PDT VLDL Cholesterol, Calc? 13 mg/dL? 01/19/24 06:42 PDT Total Chol/HDL Ratio? 2.4 -? 01/19/24 06:42 PDT Vitamin B12 Level? 634.0 pg/mL? 01/19/24 06:42 PDT LDL/HDL Ratio? 1.2 -? 01/19/24 06:42 PDT TSH Thyroid Stim Hormone 3RD G? 2.86 uInt Unit/mL? 01/19/24 06:42 PDT Auto NRBC %? 0 %? 01/19/24 06:42 PDT Procalcitonin Level? <0.05 ng/mL? 01/19/24 06:42 PDT Lactic Acid WB? 0.64 mmol/L? 01/18/24 22:14 PDT POCT - ?INR? 1.3? 01/18/24 20:31 PDT Auto Neutrophil Percent? 70.6 %? 01/19/24 06:42 PDT Auto Neutrophil Absolute? 8.1 K/uL? (HIGH)? 01/19/24 06:42 PDT Auto Lymphocyte Percent? 15.4 %? (LOW)? 01/19/24 06:42 PDT Auto Lymphocyte Absolute? 1.8 K/uL? 01/19/24 06:42 PDT Auto Monocyte Percent? 4.7 %? (LOW)? 01/19/24 06:42 PDT Auto Monocyte Absolute? 0.5 K/uL? 01/19/24 06:42 PDT Auto Basophil Percent? 4.0 %? (HIGH)? 01/19/24 06:42 PDT Auto Basophil Absolute? 0.5 K/uL? (HIGH)? 01/19/24 06:42 PDT Auto Eosinophil Percent? 5.3 %? (HIGH)? 01/19/24 06:42 PDT Auto Eosinophil Absolute? 0.6 K/uL? (HIGH)? 01/19/24 06:42 PDT Urine Culture Y/N? Yes -? 01/18/24 21:10 PDT WBC? 11.5 K/uL? (HIGH)? 01/19/24 06:42 PDT RBC? 5.90 M/uL? (HIGH)? 01/19/24 06:42 PDT HGB? 12.5 gm/dL? 01/19/24 06:42 PDT HCT? 40.6 %? 01/19/24 06:42 PDT MCV? 68.8 fL? (LOW)? 01/19/24 06:42 PDT MCH? 21.2 pg? (LOW)? 01/19/24 06:42 PDT MCHC? 30.8 gm/dL? (LOW)? 01/19/24 06:42 PDT RDW? 18.6 %? (HIGH)? 01/19/24 06:42 PDT PLT? 499 K/uL? (HIGH)? 01/19/24 06:42 PDT MPV? 7.90 fL? 01/19/24 06:42 PDT PT - Patient? 13.2 sec? 01/18/24 20:40 PDT PT - INR? 1.0? 01/18/24 20:40 PDT PTT - Patient? 40 sec? (HIGH)? 01/18/24 20:40 PDT Sodium Level? 140 mmol/L? 01/19/24 06:42 PDT Potassium Level? 3.8 mmol/L? 01/19/24 06:42 PDT Chloride Level? 107 mmol/L? 01/19/24 06:42 PDT CO2/Carbon Dioxide? 26 mmol/L? 01/19/24 06:42 PDT Anion Gap? 7.0 -? 01/19/24 06:42 PDT Glucose, Random? 82 mg/dL? 01/19/24 06:42 PDT POCT - Glucose (Capillary)? 86 mg/dL? 01/19/24 06:38 PDT BUN? 13 mg/dL? 01/19/24 06:42 PDT Creatinine? 0.49 mg/dL? (LOW)? 01/19/24 06:42 PDT BUN/Creat Ratio? 26.5? (HIGH)? 01/19/24 06:42 PDT Osmolality, Calculated? 279 mOsm/L? 01/19/24 06:42 PDT Calcium Level? 8.3 mg/dL? (LOW)? 01/19/24 06:42 PDT Total Protein? 7.4 gm/dL? 01/18/24 20:40 PDT Albumin Level? 4.0 gm/dL? 01/18/24 20:40 PDT Globulin Level? 3.4 gm/dL? 01/18/24 20:40 PDT A/G Ratio? 1.2? 01/18/24 20:40 PDT Total Cholesterol? 170 mg/dL? 01/19/24 06:42 PDT Triglycerides? 63 mg/dL? 01/19/24 06:42 PDT Bilirubin, Total? 0.3 mg/dL? 01/18/24 20:40 PDT AST? 20 IntUnit/L? 01/18/24 20:40 PDT ALT? 14 IntUnit/L? 01/18/24 20:40 PDT ALP? 88 IntUnit/L? 01/18/24 20:40 PDT UA - Source/Collect Type? Urine Voided? 01/18/24 21:10 PDT UA - Color? Yellow? 01/18/24 21:10 PDT UA - Appearance? Clear? 01/18/24 21:10 PDT UA - Specific Miller? 1.030? (ABNORMAL)? 01/18/24 21:10 PDT UA - pH? 6.0? 01/18/24 21:10 PDT UA - Protein? Negative? 01/18/24 21:10 PDT UA - Glucose? Negative? 01/18/24 21:10 PDT UA - Ketones? Negative? 01/18/24 21:10 PDT UA - Bilirubin? Negative? 01/18/24 21:10 PDT UA - Blood? Negative? 01/18/24 21:10 PDT UA - Urobilinogen? Negative? 01/18/24 21:10 PDT UA - Nitrites? Negative? 01/18/24 21:10 PDT UA - Leukocyte Esterase? Small? (ABNORMAL)? 01/18/24 21:10 PDT UA - WBC? 7 /HPF? (HIGH)? 01/18/24 21:10 PDT UA - RBC? <1 /HPF? 01/18/24 21:10 PDT UA - Epithelials, Squamous? Few? 01/18/24 21:10 PDT UA - Bacteria? Negative? 01/18/24 21:10 PDT eGFR? >90 mL/min/1.73m2? 01/19/24 06:42 PDT Troponin I High Sensitivity? 11 ng/L? 01/18/24 20:40 PDT Social History ???Abuse/Intent to Harm ?Abuse screen, adult/elderly/domestic: No signs of abuse ?Are you thinking of harming or killing anyone else?: No ?CSSRS Risk Level: No risk (0-24) ?CSSRS Suicide screening ED: Complete the suicide screening ?RT: RT000 ? *Alcohol Screen How often do you have a drink containing alcohol? Never (0). How many standard drinks containing alcohol do you have on a typical day? Never (0). How often do you have six or more drinks on one occasion? Never (0). Ready to change: N/A. *Home/Environment Screen Living Situation: Home/Independent. *Think about the place you live. Do you have any problems with any of the following? None of the above. Within the past 12 months, have you worried that your food would run out before you got money to buy more? Never true. In the past 12 months, did the food you bought just not last, and you didn't have money to get more? Never true. In the past 12 mo., has shopping for food been a concern? Ex; do you have transportation concerns? Never true. In the past 12 months, have finances been a concern because you didn't know how to buy more food? Never true. *In the past 12 mo, has lack of transportation kept you from appts, work, or getting necessities? No. *In the past 12 mo, has the electric/gas/oil/water co. threatened to shut off services in your home? No. *Nutrition Screen Yes (1) Decreased appetite:. None (0), N/A. (Pt was able to answer Questions 1 and 2) (0), Nutritional Risks: No nutritional risk triggers identified. *Substance Abuse Screen Do you have concerns about substance abuse for yourself or in your household? No. *Tobacco Use Screen Is there a smoker in the household? No. Do you have concerns about tobacco use in household? No. Over the past 30 days, what and how much have you smoked? Never (less than 100 in lifetime). Over the past 30 days, what has been your smokeless tobacco use? Never. Are you ready to quit? No. Electronically signed by: HUGH Posadas Katherine A Signed on: 19-Jan-2024 12:28 PDT 01/19/2024 60 [facility] Neurology Consultation Patient: VIJAY CURRAN Age: 83 years Legal Sex: FEMALE : 1940 Chief Complaint BIB family c/o difficulty speaking at 1999, was unable to complete a sentence. AOx3, unsure of year, Resp E/U, pt asking repetitive questions. 10/10 shoulder pain since last night. Baseline AOx4. 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 She came into the ER on 01/18 due to difficulty speaking, and confusion that lasted about 20 mins. Per family at bedside she was talking on the phone when her speech became incomprehensible. This lasted about 20 mins and then she started to become more oriented and speaking more clearly. Family that witnessed the event did not notice any facial droop, patient was able to walk with a normal gait to the car. Patient states this was different than her previous TIAs, she describes her previous TIAs as being episodes of dizziness. No body stiffening, jerking or incontinence was noted at the time of the event. Code stroke was called upon arrival to ED/ and teleneuro evaluated patient. Not a TNK candidate. Telemetry neuro did not feel it was an acute stroke. CTA was neg for LVO or hemodynamically significant stenosis. Patient was found to have UTI, with elevated WBCs. Pt was noted to be hypertensive upon admission with SBP in the 170s. BP has now normalized. Patient is currently A/Ox4, no focal weakness. No vision disturbance. Review of Systems A 12 point review of systems was taken. Pertinent positives as above otherwise negative. Physical Exam Vitals and Measurements T: 97.4 F HR: 77(Monitored) HR: 76 RR: 18 BP: 138/71 SpO2: 97% O2 Delivery: Room air HT: 157.5 cm WT: 73.9 kg(Dose Calc Wt.) WT: 73.9 kg BMI: 29.79 kg/m2 MENTAL STATUS EXAM: Awake and oriented to person, time, place and situation. Speech is fluent. Following simple one step commands. CRANIAL NERVES: 2-12 grossly intact. Pupils are round and reactive to light. Extraocular movements are intact. No ptosis. No nystagmus. Facial sensation is intact to light touch bilaterally. No evidence of facial droop. Hearing is intact bilaterally. Soft palate elevation is symmetric. Tongue is midline. MOTOR: Moves all extremities spontaneously and equally. No pronator drift. REFLEXES: Symmetric SENSATION: Intact to light touch and temperature sense in all four extremities. COORDINATION: Finger to nose intact bilaterally. No evidence of dysmetria, resting, postural or kinetic tremors. GAIT: Did not assess Assessment/Plan _ IMPRESSIONS: 1. Suspect TIA vs infectious encephalopathy due to UTI. Pt has returned to baseline. FU with MRI brain. 2. Hypertensive upon admission PLAN: - Tele - Antibiotics per primary for UTI - Aspirin 81mg daily - Pt is allergic to statins - MRI Brain no contrast pending - TTE pending - Neurochecks Q4H - Check Hgb A1C, - lipid panel (LDL 87) - Permissive hypertension x24 hours, may use labetalol 10mg PRN BP >220/110. - HOB 30 degrees for aspiration risk - SCDs - ST/OT/PT - Neuro to follow - Patient care discussed w Dr. Arellano who agrees w this assessment and plan Patient Education High Cholesterol Allergies Contrast Dye (Itching) Tape (Rash) statins sulfa drugs Problem List Active Problems No qualifying data Inactive Problems No qualifying data Medications Inpatient Allergy Documented, Allergy Review, N/A, As directed Allergy Documented, Allergy Review, N/A, As directed Allergy Documented, Allergy Review, N/A, As directed aspirin, 81 mg, 1 Tab, CHEW, DAILY Benadryl, 25 mg, 1 Cap, ORAL, QBedtime, PRN dextrose, 25 mL, IV PUSH, As directed, PRN dextrose, 50 mL, IV PUSH, As directed, PRN glucagon, 1 mg, SUBQ, As directed, PRN HEParin, 5000 units, 1 mL, SUBQ, Q8H labetalol, 10 mg, 2 mL, IV PUSH, Q1HR, PRN Rocephin, 1 gm, IV PUSH, [id number] Sodium Chloride 0.9% IV Tubing Flush (ONE) 250 mL, 250 mL, IV Sodium Chloride 0.9% IV Tubing Flush (TWO) 250 mL, 250 mL, IV Sodium Chloride 0.9% Saline Flush, 10 mL, IV FLUSH, Q12H Sodium Chloride 0.9% Saline Flush, 10 mL, IV FLUSH, As directed, PRN Tylenol, 500 mg, 1 ea, ORAL, QBedtime, PRN Home aspirin, 81 mg, ORAL, DAILY Lab Results Labs All 24H Lab Results Date MDW 19.1 units 01/18/24 20:40 PDT Glycated Hgbs - Hemoglobin A1C 5.4 % 01/19/24 06:42 PDT HDL Cholesterol 70 mg/dL 01/19/24 06:42 PDT LDL Cholesterol, Calc 87 mg/dL 01/19/24 06:42 PDT VLDL Cholesterol, Calc 13 mg/dL 01/19/24 06:42 PDT Total Chol/HDL Ratio 2.4 - 01/19/24 06:42 PDT Vitamin B12 Level 634.0 pg/mL 01/19/24 06:42 PDT LDL/HDL Ratio 1.2 - 01/19/24 06:42 PDT TSH Thyroid Stim Hormone 3RD G 2.86 uInt Unit/mL 01/19/24 06:42 PDT Auto NRBC % 0 % 01/19/24 06:42 PDT Procalcitonin Level <0.05 ng/mL 01/19/24 06:42 PDT Lactic Acid WB 0.64 mmol/L 01/18/24 22:14 PDT POCT - INR 1.3 01/18/24 20:31 PDT Auto Neutrophil Percent 70.6 % 01/19/24 06:42 PDT Auto Neutrophil Absolute 8.1 K/uL (HIGH) 01/19/24 06:42 PDT Auto Lymphocyte Percent 15.4 % (LOW) 01/19/24 06:42 PDT Auto Lymphocyte Absolute 1.8 K/uL 01/19/24 06:42 PDT Auto Monocyte Percent 4.7 % (LOW) 01/19/24 06:42 PDT Auto Monocyte Absolute 0.5 K/uL 01/19/24 06:42 PDT Auto Basophil Percent 4.0 % (HIGH) 01/19/24 06:42 PDT Auto Basophil Absolute 0.5 K/uL (HIGH) 01/19/24 06:42 PDT Auto Eosinophil Percent 5.3 % (HIGH) 01/19/24 06:42 PDT Auto Eosinophil Absolute 0.6 K/uL (HIGH) 01/19/24 06:42 PDT Urine Culture Y/N Yes - 01/18/24 21:10 PDT WBC 11.5 K/uL (HIGH) 01/19/24 06:42 PDT RBC 5.90 M/uL (HIGH) 01/19/24 06:42 PDT HGB 12.5 gm/dL 01/19/24 06:42 PDT HCT 40.6 % 01/19/24 06:42 PDT MCV 68.8 fL (LOW) 01/19/24 06:42 PDT MCH 21.2 pg (LOW) 01/19/24 06:42 PDT MCHC 30.8 gm/dL (LOW) 01/19/24 06:42 PDT RDW 18.6 % (HIGH) 01/19/24 06:42 PDT PLT 499 K/uL (HIGH) 01/19/24 06:42 PDT MPV 7.90 fL 01/19/24 06:42 PDT PT - Patient 13.2 sec 01/18/24 20:40 PDT PT - INR 1.0 01/18/24 20:40 PDT PTT - Patient 40 sec (HIGH) 01/18/24 20:40 PDT Sodium Level 140 mmol/L 01/19/24 06:42 PDT Potassium Level 3.8 mmol/L 01/19/24 06:42 PDT Chloride Level 107 mmol/L 01/19/24 06:42 PDT CO2/Carbon Dioxide 26 mmol/L 01/19/24 06:42 PDT Anion Gap 7.0 - 01/19/24 06:42 PDT Glucose, Random 82 mg/dL 01/19/24 06:42 PDT POCT - Glucose (Capillary) 86 mg/dL 01/19/24 06:38 PDT BUN 13 mg/dL 01/19/24 06:42 PDT Creatinine 0.49 mg/dL (LOW) 01/19/24 06:42 PDT BUN/Creat Ratio 26.5 (HIGH) 01/19/24 06:42 PDT Osmolality, Calculated 279 mOsm/L 01/19/24 06:42 PDT Calcium Level 8.3 mg/dL (LOW) 01/19/24 06:42 PDT Total Protein 7.4 gm/dL 01/18/24 20:40 PDT Albumin Level 4.0 gm/dL 01/18/24 20:40 PDT Globulin Level 3.4 gm/dL 01/18/24 20:40 PDT A/G Ratio 1.2 01/18/24 20:40 PDT Total Cholesterol 170 mg/dL 01/19/24 06:42 PDT Triglycerides 63 mg/dL 01/19/24 06:42 PDT Bilirubin, Total 0.3 mg/dL 01/18/24 20:40 PDT AST 20 IntUnit/L 01/18/24 20:40 PDT ALT 14 IntUnit/L 01/18/24 20:40 PDT ALP 88 IntUnit/L 01/18/24 20:40 PDT UA - Source/Collect Type Urine Voided 01/18/24 21:10 PDT UA - Color Yellow 01/18/24 21:10 PDT UA - Appearance Clear 01/18/24 21:10 PDT UA - Specific Miller 1.030 (ABNORMAL) 01/18/24 21:10 PDT UA - pH 6.0 01/18/24 21:10 PDT UA - Protein Negative 01/18/24 21:10 PDT UA - Glucose Negative 01/18/24 21:10 PDT UA - Ketones Negative 01/18/24 21:10 PDT UA - Bilirubin Negative 01/18/24 21:10 PDT UA - Blood Negative 01/18/24 21:10 PDT UA - Urobilinogen Negative 01/18/24 21:10 PDT UA - Nitrites Negative 01/18/24 21:10 PDT UA - Leukocyte Esterase Small (ABNORMAL) 01/18/24 21:10 PDT UA - WBC 7 /HPF (HIGH) 01/18/24 21:10 PDT UA - RBC <1 /HPF 01/18/24 21:10 PDT UA - Epithelials, Squamous Few 01/18/24 21:10 PDT UA - Bacteria Negative 01/18/24 21:10 PDT eGFR >90 mL/min/1.73m2 01/19/24 06:42 PDT Troponin I High Sensitivity 11 ng/L 01/18/24 20:40 PDT Social History Abuse/Intent to Harm Abuse screen, adult/elderly/domestic: No signs of abuse Are you thinking of harming or killing anyone else?: No CSSRS Risk Level: No risk (0-24) CSSRS Suicide screening ED: Complete the suicide screening RT: RT000 *Alcohol Screen How often do you have a drink containing alcohol? Never (0). How many standard drinks containing alcohol do you have on a typical day? Never (0). How often do you have six or more drinks on one occasion? Never (0). Ready to change: N/A. *Home/Environment Screen Living Situation: Home/Independent. *Think about the place you live. Do you have any problems with any of the following? None of the above. Within the past 12 months, have you worried that your food would run out before you got money to buy more? Never true. In the past 12 months, did the food you bought just not last, and you didn't have money to get more? Never true. In the past 12 mo., has shopping for food been a concern? Ex; do you have transportation concerns? Never true. In the past 12 months, have finances been a concern because you didn't know how to buy more food? Never true. *In the past 12 mo, has lack of transportation kept you from appts, work, or getting necessities? No. *In the past 12 mo, has the electric/gas/oil/water co. threatened to shut off services in your home? No. *Nutrition Screen Yes (1) Decreased appetite:. None (0), N/A. (Pt was able to answer Questions 1 and 2) (0), Nutritional Risks: No nutritional risk triggers identified. *Substance Abuse Screen Do you have concerns about substance abuse for yourself or in your household? No. *Tobacco Use Screen Is there a smoker in the household? No. Do you have concerns about tobacco use in household? No. Over the past 30 days, what and how much have you smoked? Never (less than 100 in lifetime). Over the past 30 days, what has been your smokeless tobacco use? Never. Are you ready to quit? No. Pts case reviewed with [employer]. Acute Confusional State. Resolved. Hypertensive Encephalopathy vs. Metabolic Encephalopathy 2 UTI. MRI Brain neg. Reviewed with Dr. Garcia. Clear to [place] home from [facility]. Thank u for the kind consult. [id number] Female 01/19/2024 [facility] Progress note Patient: VIJAY CURRAN H ? Age: 83 years?Legal Sex: FEMALE?: 1940 Subjective Patient relates feeling well and back to baseline. ?No recurrence of confusion reported overnight. ?No acute events ported by RN overnight. ?Patient denies any new symptoms and wants to go home ? 12 point review of system obtained negative other than what is mentioned above Objective Vitals and Measurements T: 97.8 F HR: 77(Monitored) HR: 84 RR: 18 BP: 137/72 SpO2: 97% O2 Delivery: Room air HT:?157.5 cm?WT:?73.9 kg(Dose Calc Wt.)?WT:?73.9 kg?BMI:?29.79 kg/m2 Intake and Output?as of 11:18 (24 hour periods starting at 06:00) ? 01/19/24 01/18/24 01/17/24 Intake mL ?1 ?? 1000 ?0 Output mL ?0 ?0 ?0 Fluid Balance ?1 ?? 1000 ?0 Physical Exam General Appearance: No acute distress. ?ANO x 3 HEENT: Normocephalic. Atraumatic,? Cardiac: Normal rate and rhythm. No obvious murmur. Lungs: No rhonchi, wheezing or diminished breath sounds. Abdomen: Soft, non-distended, non-tender. No obvious mass palpable. Musculoskeletal: No joint deformity, erythema, or tenderness. Neurological: Alert oriented x 4, no forgetfulness or confusion noted, no focal deficits, ambulating in room without difficulty Skin: Skin normal color, texture and turgor? Psychiatric: Normal affect during examination Inpatient Medications Scheduled: aspirin 81 mg Chew Tab ?81 mg 1 Tab, CHEW, DAILY HEParin 5,000 units/mL Inj ?5,000 units 1 mL, SUBQ, Q8H Pharmacy Consult ?Allergy Review, N/A, As directed Pharmacy Consult ?Allergy Review, N/A, As directed Pharmacy Consult ?Allergy Review, N/A, As directed sodium chloride 0.9%, 10 mL Flush ?10 mL, IV FLUSH, Q12H ? Continuous: sodium chloride 0.9% 250 mL ?250 mL, IV, 100 mL/hr sodium chloride 0.9% 250 mL ?250 mL, IV, 100 mL/hr ? PRN: acetaminophen 500 mg Tab ?500 mg 1 ea, ORAL, QBedtime Dextrose 50% Inj 50 mL Syr ?25 mL, IV PUSH, As directed Dextrose 50% Inj 50 mL Syr ?50 mL, IV PUSH, As directed diphenhydrAMINE 25 mg Cap ?25 mg 1 Cap, ORAL, QBedtime glucagon 1 mg Inj SDV ?1 mg, SUBQ, As directed labetalol 5 mg/mL, 4 mL Inj ?10 mg 2 mL, IV PUSH, Q1HR sodium chloride 0.9%, 10 mL Flush ?10 mL, IV FLUSH, As directed Lab Results ? Labs All 24H ?Lab ?Results ?Date MDW? 19.1 units? 01/18/24 20:40 PDT HDL Cholesterol? 70 mg/dL? 01/19/24 06:42 PDT LDL Cholesterol, Calc? 87 mg/dL? 01/19/24 06:42 PDT VLDL Cholesterol, Calc? 13 mg/dL? 01/19/24 06:42 PDT Total Chol/HDL Ratio? 2.4 -? 01/19/24 06:42 PDT Vitamin B12 Level? 634.0 pg/mL? 01/19/24 06:42 PDT LDL/HDL Ratio? 1.2 -? 01/19/24 06:42 PDT TSH Thyroid Stim Hormone 3RD G? 2.86 uInt Unit/mL? 01/19/24 06:42 PDT Auto NRBC %? 0 %? 01/19/24 06:42 PDT Lactic Acid WB? 0.64 mmol/L? 01/18/24 22:14 PDT POCT - ?INR? 1.3? 01/18/24 20:31 PDT Auto Neutrophil Percent? 70.6 %? 01/19/24 06:42 PDT Auto Neutrophil Absolute? 8.1 K/uL? (HIGH)? 01/19/24 06:42 PDT Auto Lymphocyte Percent? 15.4 %? (LOW)? 01/19/24 06:42 PDT Auto Lymphocyte Absolute? 1.8 K/uL? 01/19/24 06:42 PDT Auto Monocyte Percent? 4.7 %? (LOW)? 01/19/24 06:42 PDT Auto Monocyte Absolute? 0.5 K/uL? 01/19/24 06:42 PDT Auto Basophil Percent? 4.0 %? (HIGH)? 01/19/24 06:42 PDT Auto Basophil Absolute? 0.5 K/uL? (HIGH)? 01/19/24 06:42 PDT Auto Eosinophil Percent? 5.3 %? (HIGH)? 01/19/24 06:42 PDT Auto Eosinophil Absolute? 0.6 K/uL? (HIGH)? 01/19/24 06:42 PDT Urine Culture Y/N? Yes -? 01/18/24 21:10 PDT WBC? 11.5 K/uL? (HIGH)? 01/19/24 06:42 PDT RBC? 5.90 M/uL? (HIGH)? 01/19/24 06:42 PDT HGB? 12.5 gm/dL? 01/19/24 06:42 PDT HCT? 40.6 %? 01/19/24 06:42 PDT MCV? 68.8 fL? (LOW)? 01/19/24 06:42 PDT MCH? 21.2 pg? (LOW)? 01/19/24 06:42 PDT MCHC? 30.8 gm/dL? (LOW)? 01/19/24 06:42 PDT RDW? 18.6 %? (HIGH)? 01/19/24 06:42 PDT PLT? 499 K/uL? (HIGH)? 01/19/24 06:42 PDT MPV? 7.90 fL? 01/19/24 06:42 PDT PT - Patient? 13.2 sec? 01/18/24 20:40 PDT PT - INR? 1.0? 01/18/24 20:40 PDT PTT - Patient? 40 sec? (HIGH)? 01/18/24 20:40 PDT Sodium Level? 140 mmol/L? 01/19/24 06:42 PDT Potassium Level? 3.8 mmol/L? 01/19/24 06:42 PDT Chloride Level? 107 mmol/L? 01/19/24 06:42 PDT CO2/Carbon Dioxide? 26 mmol/L? 01/19/24 06:42 PDT Anion Gap? 7.0 -? 01/19/24 06:42 PDT Glucose, Random? 82 mg/dL? 01/19/24 06:42 PDT POCT - Glucose (Capillary)? 86 mg/dL? 01/19/24 06:38 PDT BUN? 13 mg/dL? 01/19/24 06:42 PDT Creatinine? 0.49 mg/dL? (LOW)? 01/19/24 06:42 PDT BUN/Creat Ratio? 26.5? (HIGH)? 01/19/24 06:42 PDT Osmolality, Calculated? 279 mOsm/L? 01/19/24 06:42 PDT Calcium Level? 8.3 mg/dL? (LOW)? 01/19/24 06:42 PDT Total Protein? 7.4 gm/dL? 01/18/24 20:40 PDT Albumin Level? 4.0 gm/dL? 01/18/24 20:40 PDT Globulin Level? 3.4 gm/dL? 01/18/24 20:40 PDT A/G Ratio? 1.2? 01/18/24 20:40 PDT Total Cholesterol? 170 mg/dL? 01/19/24 06:42 PDT Triglycerides? 63 mg/dL? 01/19/24 06:42 PDT Bilirubin, Total? 0.3 mg/dL? 01/18/24 20:40 PDT AST? 20 IntUnit/L? 01/18/24 20:40 PDT ALT? 14 IntUnit/L? 01/18/24 20:40 PDT ALP? 88 IntUnit/L? 01/18/24 20:40 PDT UA - Source/Collect Type? Urine Voided? 01/18/24 21:10 PDT UA - Color? Yellow? 01/18/24 21:10 PDT UA - Appearance? Clear? 01/18/24 21:10 PDT UA - Specific Miller? 1.030? (ABNORMAL)? 01/18/24 21:10 PDT UA - pH? 6.0? 01/18/24 21:10 PDT UA - Protein? Negative? 01/18/24 21:10 PDT UA - Glucose? Negative? 01/18/24 21:10 PDT UA - Ketones? Negative? 01/18/24 21:10 PDT UA - Bilirubin? Negative? 01/18/24 21:10 PDT UA - Blood? Negative? 01/18/24 21:10 PDT UA - Urobilinogen? Negative? 01/18/24 21:10 PDT UA - Nitrites? Negative? 01/18/24 21:10 PDT UA - Leukocyte Esterase? Small? (ABNORMAL)? 01/18/24 21:10 PDT UA - WBC? 7 /HPF? (HIGH)? 01/18/24 21:10 PDT UA - RBC? <1 /HPF? 01/18/24 21:10 PDT UA - Epithelials, Squamous? Few? 01/18/24 21:10 PDT UA - Bacteria? Negative? 01/18/24 21:10 PDT eGFR? >90 mL/min/1.73m2? 01/19/24 06:42 PDT Troponin I High Sensitivity? 11 ng/L? 01/18/24 20:40 PDT Assessment/Plan #Acute metabolic encephalopathy #?Prior history of TIA.? Rule out?CVA. Continue daily monitoring. ?So far no acute events ported on telemetry CTA head and neck shows no LVO CT brain shows no bleed MRI brain scheduled for today Continuing patient's home baby aspirin Not able to start high intensity statin as patient has an allergy to statins Echocardiogram ordered LDL 87 PT/OT? Neurochecks?and stroke protocol Permissive hypertension for now?with labetalol Neurology consulted ? #?Urinary tract infection -Start empiric Rocephin. ?Follow culture results ? #?Leukocytosis possibly secondary to UTI. ?Improved. ?Check PCT level. ?Start empiric antibiotics ? #?Chronic joint pains from osteoarthritis -patient takes Tylenol at home?as needed for joint pains. ?Okay to resume Tylenol ? #?History of TIA Resumed aspirin ? DVT ppx: Heparin GI ppx: Protonix ? Disposition -possible discharge home pending MRI brain, echo,?PT eval, neuroconsult. ?Discussed with patient ? Supportive Care The time reflected for this documentation does not necessarily reflect the true time of interaction with the patient I further certify that the patient/family/friends were encouraged to ask questions and that all questions were answered. ? Prognosis: GUARDED and will depend to patient s response to treatment? ? Further treatment and evaluation will be based on hospital course and response to that treatment. Pending further evaluation, treatment, and consult recommendations, we anticipate this patient being discharged to previous living situation or appropriate care facility.? Portions of this document may have been created using [employer] Software and may contain mistakes.? Electronically signed by: MD Jose, [id number] Signed on: 19-Jan-2024 11:33 PDT 01/19/2024 60 [facility] Progress Note Patient: JEWEL CURRAN Age: 83 years Legal Sex: FEMALE : 1940 Subjective Patient relates feeling well and back to baseline. No recurrence of confusion reported overnight. No acute events ported by RN overnight. Patient denies any new symptoms and wants to go home 12 point review of system obtained negative other than what is mentioned above Objective Vitals and Measurements T: 97.8 F HR: 77(Monitored) HR: 84 RR: 18 BP: 137/72 SpO2: 97% O2 Delivery: Room air HT: 157.5 cm WT: 73.9 kg(Dose Calc Wt.) WT: 73.9 kg BMI: 29.79 kg/m2 Intake and Output as of 11:18 (24 hour periods starting at 06:00) 01/19/24 01/18/24 01/17/24 Intake mL 1 1000 0 Output mL 0 0 0 Fluid Balance 1 1000 0 Physical Exam General Appearance: No acute distress. ANO x 3 HEENT: Normocephalic. Atraumatic, Cardiac: Normal rate and rhythm. No obvious murmur. Lungs: No rhonchi, wheezing or diminished breath sounds. Abdomen: Soft, non-distended, non-tender. No obvious mass palpable. Musculoskeletal: No joint deformity, erythema, or tenderness. Neurological: Alert oriented x 4, no forgetfulness or confusion noted, no focal deficits, ambulating in room without difficulty Skin: Skin normal color, texture and turgor Psychiatric: Normal affect during examination Inpatient Medications Scheduled: aspirin 81 mg Chew Tab 81 mg 1 Tab, CHEW, DAILY HEParin 5,000 units/mL Inj 5,000 units 1 mL, SUBQ, Q8H Pharmacy Consult Allergy Review, N/A, As directed Pharmacy Consult Allergy Review, N/A, As directed Pharmacy Consult Allergy Review, N/A, As directed sodium chloride 0.9%, 10 mL Flush 10 mL, IV FLUSH, Q12H Continuous: sodium chloride 0.9% 250 mL 250 mL, IV, 100 mL/hr sodium chloride 0.9% 250 mL 250 mL, IV, 100 mL/hr PRN: acetaminophen 500 mg Tab 500 mg 1 ea, ORAL, QBedtime Dextrose 50% Inj 50 mL Syr 25 mL, IV PUSH, As directed Dextrose 50% Inj 50 mL Syr 50 mL, IV PUSH, As directed diphenhydrAMINE 25 mg Cap 25 mg 1 Cap, ORAL, QBedtime glucagon 1 mg Inj SDV 1 mg, SUBQ, As directed labetalol 5 mg/mL, 4 mL Inj 10 mg 2 mL, IV PUSH, Q1HR sodium chloride 0.9%, 10 mL Flush 10 mL, IV FLUSH, As directed Lab Results Labs All 24H Lab Results Date MDW 19.1 units 01/18/24 20:40 PDT HDL Cholesterol 70 mg/dL 01/19/24 06:42 PDT LDL Cholesterol, Calc 87 mg/dL 01/19/24 06:42 PDT VLDL Cholesterol, Calc 13 mg/dL 01/19/24 06:42 PDT Total Chol/HDL Ratio 2.4 - 01/19/24 06:42 PDT Vitamin B12 Level 634.0 pg/mL 01/19/24 06:42 PDT LDL/HDL Ratio 1.2 - 01/19/24 06:42 PDT TSH Thyroid Stim Hormone 3RD G 2.86 uInt Unit/mL 01/19/24 06:42 PDT Auto NRBC % 0 % 01/19/24 06:42 PDT Lactic Acid WB 0.64 mmol/L 01/18/24 22:14 PDT POCT - INR 1.3 01/18/24 20:31 PDT Auto Neutrophil Percent 70.6 % 01/19/24 06:42 PDT Auto Neutrophil Absolute 8.1 K/uL (HIGH) 01/19/24 06:42 PDT Auto Lymphocyte Percent 15.4 % (LOW) 01/19/24 06:42 PDT Auto Lymphocyte Absolute 1.8 K/uL 01/19/24 06:42 PDT Auto Monocyte Percent 4.7 % (LOW) 01/19/24 06:42 PDT Auto Monocyte Absolute 0.5 K/uL 01/19/24 06:42 PDT Auto Basophil Percent 4.0 % (HIGH) 01/19/24 06:42 PDT Auto Basophil Absolute 0.5 K/uL (HIGH) 01/19/24 06:42 PDT Auto Eosinophil Percent 5.3 % (HIGH) 01/19/24 06:42 PDT Auto Eosinophil Absolute 0.6 K/uL (HIGH) 01/19/24 06:42 PDT Urine Culture Y/N Yes - 01/18/24 21:10 PDT WBC 11.5 K/uL (HIGH) 01/19/24 06:42 PDT RBC 5.90 M/uL (HIGH) 01/19/24 06:42 PDT HGB 12.5 gm/dL 01/19/24 06:42 PDT HCT 40.6 % 01/19/24 06:42 PDT MCV 68.8 fL (LOW) 01/19/24 06:42 PDT MCH 21.2 pg (LOW) 01/19/24 06:42 PDT MCHC 30.8 gm/dL (LOW) 01/19/24 06:42 PDT RDW 18.6 % (HIGH) 01/19/24 06:42 PDT PLT 499 K/uL (HIGH) 01/19/24 06:42 PDT MPV 7.90 fL 01/19/24 06:42 PDT PT - Patient 13.2 sec 01/18/24 20:40 PDT PT - INR 1.0 01/18/24 20:40 PDT PTT - Patient 40 sec (HIGH) 01/18/24 20:40 PDT Sodium Level 140 mmol/L 01/19/24 06:42 PDT Potassium Level 3.8 mmol/L 01/19/24 06:42 PDT Chloride Level 107 mmol/L 01/19/24 06:42 PDT CO2/Carbon Dioxide 26 mmol/L 01/19/24 06:42 PDT Anion Gap 7.0 - 01/19/24 06:42 PDT Glucose, Random 82 mg/dL 01/19/24 06:42 PDT POCT - Glucose (Capillary) 86 mg/dL 01/19/24 06:38 PDT BUN 13 mg/dL 01/19/24 06:42 PDT Creatinine 0.49 mg/dL (LOW) 01/19/24 06:42 PDT BUN/Creat Ratio 26.5 (HIGH) 01/19/24 06:42 PDT Osmolality, Calculated 279 mOsm/L 01/19/24 06:42 PDT Calcium Level 8.3 mg/dL (LOW) 01/19/24 06:42 PDT Total Protein 7.4 gm/dL 01/18/24 20:40 PDT Albumin Level 4.0 gm/dL 01/18/24 20:40 PDT Globulin Level 3.4 gm/dL 01/18/24 20:40 PDT A/G Ratio 1.2 01/18/24 20:40 PDT Total Cholesterol 170 mg/dL 01/19/24 06:42 PDT Triglycerides 63 mg/dL 01/19/24 06:42 PDT Bilirubin, Total 0.3 mg/dL 01/18/24 20:40 PDT AST 20 IntUnit/L 01/18/24 20:40 PDT ALT 14 IntUnit/L 01/18/24 20:40 PDT ALP 88 IntUnit/L 01/18/24 20:40 PDT UA - Source/Collect Type Urine Voided 01/18/24 21:10 PDT UA - Color Yellow 01/18/24 21:10 PDT UA - Appearance Clear 01/18/24 21:10 PDT UA - Specific Miller 1.030 (ABNORMAL) 01/18/24 21:10 PDT UA - pH 6.0 01/18/24 21:10 PDT UA - Protein Negative 01/18/24 21:10 PDT UA - Glucose Negative 01/18/24 21:10 PDT UA - Ketones Negative 01/18/24 21:10 PDT UA - Bilirubin Negative 01/18/24 21:10 PDT UA - Blood Negative 01/18/24 21:10 PDT UA - Urobilinogen Negative 01/18/24 21:10 PDT UA - Nitrites Negative 01/18/24 21:10 PDT UA - Leukocyte Esterase Small (ABNORMAL) 01/18/24 21:10 PDT UA - WBC 7 /HPF (HIGH) 01/18/24 21:10 PDT UA - RBC <1 /HPF 01/18/24 21:10 PDT UA - Epithelials, Squamous Few 01/18/24 21:10 PDT UA - Bacteria Negative 01/18/24 21:10 PDT eGFR >90 mL/min/1.73m2 01/19/24 06:42 PDT Troponin I High Sensitivity 11 ng/L 01/18/24 20:40 PDT Assessment/Plan #Acute metabolic encephalopathy # Prior history of TIA. Rule out CVA. Continue daily monitoring. So far no acute events ported on telemetry CTA head and neck shows no LVO CT brain shows no bleed MRI brain scheduled for today Continuing patient's home baby aspirin Not able to start high intensity statin as patient has an allergy to statins Echocardiogram ordered LDL 87 PT/OT Neurochecks and stroke protocol Permissive hypertension for now with labetalol Neurology consulted # Urinary tract infection -Start empiric Rocephin. Follow culture results # Leukocytosis possibly secondary to UTI. Improved. Check PCT level. Start empiric antibiotics # Chronic joint pains from osteoarthritis -patient takes Tylenol at home as needed for joint pains. Okay to resume Tylenol # History of TIA Resumed aspirin DVT ppx: Heparin GI ppx: Protonix Disposition -possible discharge home pending MRI brain, echo, PT eval, neuroconsult. Discussed with patient Supportive Care The time reflected for this documentation does not necessarily reflect the true time of interaction with the patient I further certify that the patient/family/friends were encouraged to ask questions and that all questions were answered. Prognosis: GUARDED and will depend to patient's response to treatment Further treatment and evaluation will be based on hospital course and response to that treatment. Pending further evaluation, treatment, and consult recommendations, we anticipate this patient being discharged to previous living situation or appropriate care facility. Portions of this document may have been created using [employer] and may contain mistakes. [id number] Female 01/19/2024 [facility] History and Physical Examination Patient: VIJAY CURRAN H ? Age: 83 years?Legal Sex: FEMALE?: 1940 Date of Service 01/18/2024 22:29 PDT Chief Complaint BIB family c/o difficulty speaking at 1999, was unable to complete a sentence. AOx3, unsure of year, Resp E/U, pt asking repetitive questions. 10/10 shoulder pain since last night. Baseline AOx4. Problem List Active Problems No qualifying data Inactive Problems No qualifying data History of Present Illness Patient is an 83-year-old female visiting from [place] with a past medical history of TIA on baby aspirin coming to the emergency department due to difficulty speaking, with family concerns of altered mental status.? Family were concerned because she has had something similar in the past and was diagnosed with a TIA about a year ago.? Patient was eating dinner with the family without distress and was normal, and then suddenly seemed confused and unable to recognize her .? Patient currently believes she has at her son's house.? Code stroke was called and teleneuro evaluated patient.? Not a TNK candidate.? Telemetry neuro does not feel it was an acute stroke.? Patient will be admitted to telemetry for further evaluation and stroke rule out.? Neurology consulted with Dr. Arellano. Review of Systems As seen in HPI Physical Exam Vitals and Measurements T: 97.6 F HR: 72 RR: 16 BP: 165/84 SpO2: 98% O2 Delivery: Room air WT:?65.5 kg(Dose Calc Wt.)?WT:?65.5 kg ?Shock Index:?0.436 01/18/24 20:28 General Appearance: No acute distress. ?ANO x 3, patient appears to be?much improved compared to what was discussed, patient says she does not recollect being confused HEENT: Normocephalic. Atraumatic,? Cardiac: Normal rate and rhythm. No obvious murmur. Lungs: No rhonchi, wheezing or diminished breath sounds. Abdomen: Soft, non-distended, non-tender. No obvious mass palpable. Musculoskeletal: No joint deformity, erythema, or tenderness. Neurological: Normal motor, sensory, Skin: Skin normal color, texture and turgor? Genitalia: Deferred. Psychiatric: Normal affect during examination Assessment/Plan _ AMS (altered mental status) (Altered mental status, unspecified, R41.82) Ordered: Admission Status ? Difficulty speaking (Difficulty speaking, [id number]) ? Orders: aspirin (aspirin), 81 mg, CHEW, DAILY, CHEW TAB, 01/18/24 22:24:00 PDT glucagon (glucagon), 1 mg, SUBQ, As directed, PRN, Blood Glucose, INJ, 01/18/24 22:22:00 PDT glucose (dextrose), = 50 mL, IV PUSH, As directed, PRN, Blood Glucose, INJ, 01/18/24 22:22:00 PDT glucose (dextrose), = 25 mL, IV PUSH, As directed, PRN, Blood Glucose, INJ, 01/18/24 22:22:00 PDT HEParin (HEParin), 5,000 units, SUBQ, Q8H, Indication = VTE Prophylaxis, INJ, 01/19/24 9:00:00 PDT labetalol (labetalol), 10 mg, IV PUSH, Q1HR, PRN, Blood Pressure, INJ, 01/18/24 22:22:00 PDT sodium chloride 0.9% (Sodium Chloride 0.9% Saline Flush), = 10 mL, IV FLUSH, As directed, PRN, IV Access Flush, INJ, 01/18/24 22:22:00 PDT sodium chloride 0.9% (Sodium Chloride 0.9% Saline Flush), = 10 mL, IV FLUSH, Q12H, INJ, 01/18/24 22:27:00 PDT sodium chloride 0.9% 250 mL (Sodium Chloride 0.9% IV Tubing Flush (TWO) 250 mL), 250 mL, IV, 01/18/24 22:22:00 PDT, 100 mL/hr, 2.5 hr, Order Weight 65.5, kg sodium chloride 0.9% 250 mL (Sodium Chloride 0.9% IV Tubing Flush (ONE) 250 mL), 250 mL, IV, 01/18/24 22:22:00 PDT, 100 mL/hr, 2.5 hr, Order Weight 65.5, kg A1C Hemoglobin NOT HPLC Basic Metabolic Panel BMP CBC w Differential CV Echo TTE Fingerstick/Capillary Blood Sugar Fingerstick/Capillary Blood Sugar Full Code Glucose Level Fasting Head of Bed Position Hypoglycemia Protocol Hypoglycemia Protocol Intermittent Pneumatic Compression Device Intermittent Pneumatic Compression Device Lipid Panel MRI Brain WO Contrast Neuro Checks NIH Scale NIH Scale NIH Scale Notify Physician Notify Physician NPO Oxygen Therapy Precautions Rapid Response Protocol Orders or Emergency Response per Protocol Saline Lock Protocol (18 years and older) Stroke Quality Measures Swallow Screen Telemetry Monitoring Treponema Ab CLIA (TrepCheck) TSH Thyroid Stim Horm 3rd Generation Vital Signs Vitamin B12 Level ? #Acute altered mental status, confusion #Metabolic encephalopathy #History of TIA Admit to telemetry CTA head and neck shows no LVO CT brain shows no bleed Ordered brain MRI for a.m. Continuing patient's home baby aspirin Not able to start high intensity statin as patient has an allergy to statins Echocardiogram ordered A1c and lipid panel?ordered Per telemetry neuro recommendation, order TSH, B12 and?RPR PT/OT?when able N.p.o. for now until?bedside swallow test Neurochecks?and stroke protocol Permissive hypertension for now?with labetalol Follow-up with neurology ? #?History of TIA Resumed aspirin ? DVT ppx: Heparin GI ppx: Protonix ? Supportive Care The time reflected for this documentation does not necessarily reflect the true time of interaction with the patient I further certify that the patient/family/friends were encouraged to ask questions and that all questions were answered. ? Prognosis: GUARDED and will depend to patient s response to treatment? ? Further treatment and evaluation will be based on hospital course and response to that treatment. Pending further evaluation, treatment, and consult recommendations, we anticipate this patient being discharged to previous living situation or appropriate care facility.? Portions of this document may have been created using [employer] and may contain mistakes.? ? ? Signature Line: Electronically Signed by: Lucinda Pacheco [facility] 01/19/2024 Allergies statins sulfa drugs Past Medical History No qualifying data available. Social History ???Abuse/Intent to Harm ?Abuse screen, adult/elderly/domestic: No signs of abuse ?Are you thinking of harming or killing anyone else?: No ?CSSRS Risk Level: No risk (0-24) ?CSSRS Suicide screening ED: Complete the suicide screening ?RT: RT000 ? Medications Inpatient Allergy Documented, Allergy Review, N/A, As directed Allergy Documented, Allergy Review, N/A, As directed Allergy Documented, Allergy Review, N/A, As directed aspirin, 81 mg, 1 Tab, CHEW, DAILY Benadryl, 25 mg, 1 Cap, ORAL, QBedtime, PRN dextrose, 25 mL, IV PUSH, As directed, PRN dextrose, 50 mL, IV PUSH, As directed, PRN glucagon, 1 mg, SUBQ, As directed, PRN HEParin, 5000 units, 1 mL, SUBQ, Q8H labetalol, 10 mg, 2 mL, IV PUSH, Q1HR, PRN Sodium Chloride 0.9% IV Tubing Flush (ONE) 250 mL, 250 mL, IV Sodium Chloride 0.9% IV Tubing Flush (TWO) 250 mL, 250 mL, IV Sodium Chloride 0.9% Saline Flush, 10 mL, IV FLUSH, Q12H Sodium Chloride 0.9% Saline Flush, 10 mL, IV FLUSH, As directed, PRN Tylenol, 500 mg, 1 ea, ORAL, QBedtime, PRN Home aspirin, 81 mg, ORAL, DAILY Lab Results ? Labs All 24H ?Lab ?Results ?Date MDW? 19.1 units? 01/18/24 20:40 PDT Auto NRBC %? 0 %? 01/18/24 20:40 PDT POCT - ?INR? 1.3? 01/18/24 20:31 PDT Auto Neutrophil Percent? 75.9 %? (HIGH)? 01/18/24 20:40 PDT Auto Neutrophil Absolute? 11.2 K/uL? (HIGH)? 01/18/24 20:40 PDT Auto Lymphocyte Percent? 14.5 %? (LOW)? 01/18/24 20:40 PDT Auto Lymphocyte Absolute? 2.1 K/uL? 01/18/24 20:40 PDT Auto Monocyte Percent? 5.1 %? 01/18/24 20:40 PDT Auto Monocyte Absolute? 0.8 K/uL? 01/18/24 20:40 PDT Auto Basophil Percent? 0.3 %? 01/18/24 20:40 PDT Auto Basophil Absolute? 0.0 K/uL? 01/18/24 20:40 PDT Auto Eosinophil Percent? 4.2 %? 01/18/24 20:40 PDT Auto Eosinophil Absolute? 0.6 K/uL? (HIGH)? 01/18/24 20:40 PDT Urine Culture Y/N? Yes -? 01/18/24 21:10 PDT WBC? 14.8 K/uL? (HIGH)? 01/18/24 20:40 PDT RBC? 6.16 M/uL? (HIGH)? 01/18/24 20:40 PDT HGB? 13.4 gm/dL? 01/18/24 20:40 PDT HCT? 42.5 %? 01/18/24 20:40 PDT MCV? 68.9 fL? (LOW)? 01/18/24 20:40 PDT MCH? 21.8 pg? (LOW)? 01/18/24 20:40 PDT MCHC? 31.6 gm/dL? 01/18/24 20:40 PDT RDW? 18.4 %? (HIGH)? 01/18/24 20:40 PDT PLT? 534 K/uL? (HIGH)? 01/18/24 20:40 PDT MPV? 7.60 fL? 01/18/24 20:40 PDT PT - Patient? 13.2 sec? 01/18/24 20:40 PDT PT - INR? 1.0? 01/18/24 20:40 PDT PTT - Patient? 40 sec? (HIGH)? 01/18/24 20:40 PDT Sodium Level? 137 mmol/L? 01/18/24 20:40 PDT Potassium Level? 4.3 mmol/L? 01/18/24 20:40 PDT Chloride Level? 102 mmol/L? 01/18/24 20:40 PDT CO2/Carbon Dioxide? 28 mmol/L? 01/18/24 20:40 PDT Anion Gap? 7.0 -? 01/18/24 20:40 PDT Glucose, Random? 104 mg/dL? 01/18/24 20:40 PDT POCT - Glucose (Capillary)? 118 mg/dL? (HIGH)? 01/18/24 20:32 PDT BUN? 19 mg/dL? 01/18/24 20:40 PDT Creatinine? 0.67 mg/dL? 01/18/24 20:40 PDT BUN/Creat Ratio? 28.4? (HIGH)? 01/18/24 20:40 PDT Osmolality, Calculated? 276 mOsm/L? 01/18/24 20:40 PDT Calcium Level? 9.0 mg/dL? 01/18/24 20:40 PDT Total Protein? 7.4 gm/dL? 01/18/24 20:40 PDT Albumin Level? 4.0 gm/dL? 01/18/24 20:40 PDT Globulin Level? 3.4 gm/dL? 01/18/24 20:40 PDT A/G Ratio? 1.2? 01/18/24 20:40 PDT Bilirubin, Total? 0.3 mg/dL? 01/18/24 20:40 PDT AST? 20 IntUnit/L? 01/18/24 20:40 PDT ALT? 14 IntUnit/L? 01/18/24 20:40 PDT ALP? 88 IntUnit/L? 01/18/24 20:40 PDT UA - Source/Collect Type? Urine Voided? 01/18/24 21:10 PDT UA - Color? Yellow? 01/18/24 21:10 PDT UA - Appearance? Clear? 01/18/24 21:10 PDT UA - Specific Miller? 1.030? (ABNORMAL)? 01/18/24 21:10 PDT UA - pH? 6.0? 01/18/24 21:10 PDT UA - Protein? Negative? 01/18/24 21:10 PDT UA - Glucose? Negative? 01/18/24 21:10 PDT UA - Ketones? Negative? 01/18/24 21:10 PDT UA - Bilirubin? Negative? 01/18/24 21:10 PDT UA - Blood? Negative? 01/18/24 21:10 PDT UA - Urobilinogen? Negative? 01/18/24 21:10 PDT UA - Nitrites? Negative? 01/18/24 21:10 PDT UA - Leukocyte Esterase? Small? (ABNORMAL)? 01/18/24 21:10 PDT UA - WBC? 7 /HPF? (HIGH)? 01/18/24 21:10 PDT UA - RBC? <1 /HPF? 01/18/24 21:10 PDT UA - Epithelials, Squamous? Few? 01/18/24 21:10 PDT UA - Bacteria? Negative? 01/18/24 21:10 PDT eGFR? 87 mL/min/1.73m2? 01/18/24 20:40 PDT Troponin I High Sensitivity? 11 ng/L? 01/18/24 20:[address] Brain WO Contrast ? 01/18/24 20:44:57 Impression: 1. No evidence of acute intracranial hemorrhage, midline shift or mass effect. ? 2. Mild generalized parenchymal volume loss with mild white matter changes in bilateral cerebral hemispheres, which are nonspecific but can be seen with chronic microvascular ischemia. ? ? If you are a provider and would like to contact the interpreting physician or one of the staff members, please call . For patients who have questions in regard to this examination, please contact your referring doctor directly. ? Chest 1 Vw Portable ? 01/18/24 21:13:29 Impression: No evidence of acute disease. ? ? If you are a provider and would like to contact the interpreting physician or one of the staff members, please call . For patients who have questions in regard to this examination, please contact your referring doctor directly. ? CT Angio Head/Neck W Contrast ? 01/18/24 21:05:36 Impression: 1. No large vessel occlusion, flow-limiting stenosis, or aneurysm of the intracranial arteries. ? 2. No evidence of flow-limiting stenosis, dissection or aneurysm formation of the carotid and vertebral arteries in the neck. ? Note: Measurement of carotid stenosis is based on velocity parameters that correlate the residual internal carotid diameter with that of the more distal vessel in accordance with [place] Symptomatic Carotid Endarterectomy Trial (NASCET). ? ? If you are a provider and would like to contact the interpreting physician or one of the staff members, please call . For patients who have questions in regard to this examination, please contact your referring doctor directly. Date Performed:?01/18/2024 21:03:12 PDT Status:?Signed Impression:?SINUS RHYTHM WITH FIRST DEGREE AV BLOCK @ 76BPM NO ACUTE ST/T WAVE CHANGES READ AT 2103 ? ABNORMAL ECG Electronic Signature: MD Swetha, Mary Jane Guadalupe ?01/18/2024 ?21:12:29 Electronically signed by: DO Pacheco Steven Q Signed on: 19-Jan-2024 02:46 PDT 01/19/2024 60 [facility] Neurology Consultation Patient: VIJAY CURRAN Age: 83 years Legal Sex: FEMALE : 1940 _ Acute TeleNeurology Phone Consult Note Site: [facility] Patient Name: VIJAY CURRAN Patient : 1940 Consult Date: 01/18/2024 21:07:48 Time Paged: 2027 Time Called Back: 2027 [note paged to non-working line multiple times, but then was connected by ORTHOTICS TECHNICIAN] Phone only consult requested/approved by consulting physician. History per EMR and/or referring physician report. Reason for Consult: AMS Summary: 83 Years old Female per ER note: 'Patient is 83 years old, currently visiting the area from [place], with a history of TIAs, on baby aspirin, recent right shoulder pain, has been taking Tylenol for this, who presents with a sudden onset of altered mental status. Family states she had similar events in the past secondary to TIA, with the last event about a year ago. About 30 minutes ago, she was with family, was having dinner, no distress, was her normal self. And about 20 minutes ago approximately 8 pm she was on the phone, when suddenly she seemed confused, suddenly was unable to recognize her , acutely altered. Upon questioning, when asked what type of place she is at right now, she states she is 'at my son's house. This is a beautiful home.' There was no recent medication taken, except for tylenol. No fevers, recent illness, per the family.' Per ER MD patient has no FND or overt seizure activity, no signs of aphasia, but seems acutely confused with disorientation and memory loss. Apparently this has happened several times; patient has never been diagnosed with anything beyond 'mini-strokes' per family. VS: T: 97.6 F HR: 72 RR: 16 BP: 165/84 SPO2: 98% O2 Delivery: Room air PnIntLvl: 10 - (01/18/24 20:58:40 PDT) Labs: Labs All 24H Lab Results Date MDW 19.1 units 01/18/24 20:40 PDT Auto NRBC % 0 % 01/18/24 20:40 PDT POCT - INR 1.3 01/18/24 20:31 PDT Auto Neutrophil Percent 75.9 % (HIGH) 01/18/24 20:40 PDT Auto Neutrophil Absolute 11.2 K/uL (HIGH) 01/18/24 20:40 PDT Auto Lymphocyte Percent 14.5 % (LOW) 01/18/24 20:40 PDT Auto Lymphocyte Absolute 2.1 K/uL 01/18/24 20:40 PDT Auto Monocyte Percent 5.1 % 01/18/24 20:40 PDT Auto Monocyte Absolute 0.8 K/uL 01/18/24 20:40 PDT Auto Basophil Percent 0.3 % 01/18/24 20:40 PDT Auto Basophil Absolute 0.0 K/uL 01/18/24 20:40 PDT Auto Eosinophil Percent 4.2 % 01/18/24 20:40 PDT Auto Eosinophil Absolute 0.6 K/uL (HIGH) 01/18/24 20:40 PDT WBC 14.8 K/uL (HIGH) 01/18/24 20:40 PDT RBC 6.16 M/uL (HIGH) 01/18/24 20:40 PDT HGB 13.4 gm/dL 01/18/24 20:40 PDT HCT 42.5 % 01/18/24 20:40 PDT MCV 68.9 fL (LOW) 01/18/24 20:40 PDT MCH 21.8 pg (LOW) 01/18/24 20:40 PDT MCHC 31.6 gm/dL 01/18/24 20:40 PDT RDW 18.4 % (HIGH) 01/18/24 20:40 PDT PLT 534 K/uL (HIGH) 01/18/24 20:40 PDT MPV 7.60 fL 01/18/24 20:40 PDT PT - Patient 13.2 sec 01/18/24 20:40 PDT PT - INR 1.0 01/18/24 20:40 PDT PTT - Patient 40 sec (HIGH) 01/18/24 20:40 PDT Sodium Level 137 mmol/L 01/18/24 20:40 PDT Potassium Level 4.3 mmol/L 01/18/24 20:40 PDT Chloride Level 102 mmol/L 01/18/24 20:40 PDT CO2/Carbon Dioxide 28 mmol/L 01/18/24 20:40 PDT Anion Gap 7.0 - 01/18/24 20:40 PDT Glucose, Random 104 mg/dL 01/18/24 20:40 PDT POCT - Glucose (Capillary) 118 mg/dL (HIGH) 01/18/24 20:32 PDT BUN 19 mg/dL 01/18/24 20:40 PDT Creatinine 0.67 mg/dL 01/18/24 20:40 PDT BUN/Creat Ratio 28.4 (HIGH) 01/18/24 20:40 PDT Osmolality, Calculated 276 mOsm/L 01/18/24 20:40 PDT Calcium Level 9.0 mg/dL 01/18/24 20:40 PDT Total Protein 7.4 gm/dL 01/18/24 20:40 PDT Albumin Level 4.0 gm/dL 01/18/24 20:40 PDT Globulin Level 3.4 gm/dL 01/18/24 20:40 PDT A/G Ratio 1.2 01/18/24 20:40 PDT Bilirubin, Total 0.3 mg/dL 01/18/24 20:40 PDT AST 20 IntUnit/L 01/18/24 20:40 PDT ALT 14 IntUnit/L 01/18/24 20:40 PDT ALP 88 IntUnit/L 01/18/24 20:40 PDT eGFR 87 mL/min/1.73m2 01/18/24 20:40 PDT Troponin I High Sensitivity 11 ng/L 01/18/24 20:40 PDT Studies: CT Brain WO Contrast 01/18/24 20:44:57 Impression: 1. No evidence of acute intracranial hemorrhage, midline shift or mass effect. 2. Mild generalized parenchymal volume loss with mild white matter changes in bilateral cerebral hemispheres, which are nonspecific but can be seen with chronic microvascular ischemia. If you are a provider and would like to contact the interpreting physician or one of the staff members, please call . For patients who have questions in regard to this examination, please contact your referring doctor directly. CTA: formal reads pending, but I do not see any obvious proximal intracranial LVO on CTA images Please see chart for other information including detailed history, medication list, VS/labs/study results, et. al. Assessment: - given unusual, not clearly focal, and repeat presentation over years [?] I agree with Dr Carter that this patient is not a good TNK candidate as very unusual for stroke - query other potentially paroxysmal disorder such as seizure, dementia with Lewy bodies, et al. Recommendations: - f/u STAT CTA head + neck read - if acute occlusion found [doubt] recontact CATHLE[facility] - otherwise: - need additional history - basic aqbms-[id number]-[id number] workup as appropriate per ER/primary team - recommend check B12, RPR, TSH if no recent values - consider MRI brain WWO contrast and EEG - all recommendations unless contraindications - feel free to reconsult [facility] if needed or follow up with local neurology as needed --- Reason Thrombolysis Not Administered: see above Case discussed with: SWETHA, much appreciated Total time spent reviewing information/providing care/conversation: 30 minutes Signed: Mandeep Sebastian MD [facility] [id number] Female 01/19/2024 [facility] ED Physician Notes Patient: JEWEL CURRAN Age: 83 years Legal Sex: FEMALE : 1940 Chief Complaint BIB family c/o difficulty speaking at 1999, was unable to complete a sentence. AOx3, unsure of year, Resp E/U, pt asking repetitive questions. 10/10 shoulder pain since last night. Baseline AOx4. Mode of Arrival Walk-In History (History of Present Illness) Patient is 83 years old, currently visiting the area from [place], with a history of TIAs, on baby aspirin, recent right shoulder pain, has been taking Tylenol for this, who presents with a sudden onset of altered mental status. Family states she had similar events in the past secondary to TIA, with the last event about a year ago. About 30 minutes ago, she was with family, was having dinner, no distress, was her normal self. And about 20 minutes ago approximately 8 pm she was on the phone, when suddenly she seemed confused, suddenly was unable to recognize her , acutely altered. Upon questioning, when asked what type of place she is at right now, she states she is 'at my son's house. This is a beautiful home.' There was no recent medication taken, except for tylenol. No fevers, recent illness, per the family. Activated code stroke upon arrival. Additional History Obtained From: Family _ _ Physical Exam Triage Vital Signs 01/18/24 20:28 T: 97.6 F HR: 72 RR: 16 BP: 165/84 SPO2: 98% O2 Delivery: Room air WT: 65.5 kg(Dose Calc Wt.) WT: 65.5 kg General: Alert, no acute distress, well-appearing Head: Normocephalic, atraumatic Eye: normal conjunctiva ENMT: Oral mucosa moist Neck: Supple, trachea midline CV: RRR Resp: Lungs CTA Abd: soft, non-tender, non distended, no rebound or guarding Musculoskeletal: No swelling, no deformity, no clubbing, no cyanosis Neuro: No focal neuro deficits, alert, answering questions appropriately, no aphasia, no facial droop, normal finger to nose-testing, no pronator drift, MS 5/5 ue/le. Sensation grossly intact ED Course, Data, and Interventions Orders sodium chloride 0.9% Bolus, 1,000 mL, IVPB, ONCE Order Profile Completed (Completed) 39312 CBC Auto w Auto Diff ONCE, Stat, Collected Lab Collect, 01/18/24 20:40:00 PDT, Blood, Stop Dt/Tm 01/18/24 20:40:00 PDT CBC w Differential 01/18/24 20:28:00 PDT, ONCE, [place] Priority: Stat Rpt Priority: Stat, Not Collected Lab Collect, Blood, Stop Dt/Tm 01/18/24 20:28:[address] Angio Head/Neck W Contrast 01/18/24 20:28:00 PDT, Stat, Patient not Allergic to Contrast, Reason: Other, R/O Large Vessel Occlusion (LVO) Stroke, OK CT Brain WO Contrast 01/18/24 20:28:00 PDT, Stat, Reason: Stroke/TIA, OK Comprehensive Metabolic Panel CMP 01/18/24 20:28:00 PDT, ONCE, [place] Priority: Stat Rpt Priority: Stat, Not Collected Lab Collect, Blood, Stop Dt/Tm 01/18/24 20:28:00 PDT Differential Automated* 01/18/24 20:40:00 PDT, ONCE, [place] Priority: Stat Rpt Priority: Stat, Collected Lab Collect, Blood, Stop Dt/Tm 01/18/24 20:40:00 PDT ED Possible Admit 01/18/24 20:34:00 PDT Monocyte Distribution Width 01/18/24 20:40:00 PDT, ONCE, [place] Priority: Stat Rpt Priority: Stat, Collected Lab Collect, Blood, Stop Dt/Tm 01/18/24 20:40:00 PDT POC Glucose Panel Blood, Collected Y/N, 01/18/24 20:32:30 PDT, RT, Routine, 01/18/24 20:32:30 /[facility] POC PT/INR Panel Blood, Collected Y/N, 01/18/24 20:31:14 PDT, RT, Routine, 01/18/24 20:31:14 /[facility] Partial Thromboplastin Time PTT 01/18/24 20:28:00 PDT, ONCE, [place] Priority: Stat Rpt Priority: Stat, Not Collected Lab Collect, Blood, Stop Dt/Tm 01/18/24 20:28:00 PDT Prothrombin Time PT w INR 01/18/24 20:28:00 PDT, ONCE, [place] Priority: Stat Rpt Priority: Stat, Not Collected Lab Collect, Blood, Stop Dt/Tm 01/18/24 20:28:00 PDT Serum Indices 01/18/24 20:40:00 PDT, ONCE, [place] Priority: Stat Rpt Priority: Stat, Collected Lab Collect, Blood, Stop Dt/Tm 01/18/24 20:40:00 PDT Troponin I High Sensitivity 01/18/24 20:28:00 PDT, ONCE, Stat, Not Collected Lab Collect, Blood, Stop Dt/Tm 01/18/24 20:28:00 PDT Completed (Signed) ECG 12 Lead - CV (ED) 01/18/24 20:28:00 PDT, Stat, TIA, ONCE Ordered Labs Urinalysis w C/S IF Indicated - (01/18/2024 20:28 PDT) Diagnostics. Imaging results below were _ by me. Ordered Radiology Chest 1 Vw Portable - (01/18/2024 20:28 PDT) Computerized Tomography Result Type: CT Brain WO Contrast Result Date: January 18, 2024 20:37 PDT Reason For Exam: Stroke/TIA REPORT: Exam: CT Head Indication: Code stroke. Comparison: None available. Technique: Utilizing a multislice CT scanner, a CT of the head was performed without intravenous contrast. All CT scans at this facility use dose modulation, iterative reconstruction, and/or weight based dosing when appropriate to reduce radiation dose to as low as reasonably achievable. CTDIvol (mGy): 27.98 DLP (mGy-cm): 457 Findings: The ventricles, cisterns and sulci are mildly enlarged for the patient's age compatible with cerebral volume loss. There is no midline shift. There is no extra-axial fluid collection. There is no evidence of acute intracranial hemorrhage. There is mild nonspecific periventricular white matter hypodensity probably secondary to chronic small vessel ischemic disease. The staley-white differentiation is maintained. The basal ganglia and thalami are unremarkable. The brainstem and cerebellum are within normal limits. The sellar and parasellar regions are unremarkable. There are atherosclerotic calcifications of bilateral carotid siphons. The visualized paranasal sinuses are clear. The mastoid air cells are clear. The orbits are unremarkable. The bony calvarium is unremarkable. The soft tissues of the scalp are unremarkable. Impression: 1. No evidence of acute intracranial hemorrhage, midline shift or mass effect. 2. Mild generalized parenchymal volume loss with mild white matter changes in bilateral cerebral hemispheres, which are nonspecific but can be seen with chronic microvascular ischemia. If you are a provider and would like to contact the interpreting physician or one of the staff members, please call . For patients who have questions in regard to this examination, please contact your referring doctor directly. Result Type: CT Angio Head/Neck W Contrast Result Date: January 18, 2024 20:47 PDT Reason For Exam: Other REPORT: Exam: CT Angiogram Brain with contrast, CT Angiogram Neck with contrast Indication: Code stroke. Comparison: CT head from same date. Technique: Utilizing a multislice CT scanner, a CT angiogram of the brain and neck was performed after the administration of 90 mL Isovue 370 intravenous contrast. Coronal and sagittal reformatted images and 3D reconstructed images are also provided for evaluation. All CT scans at this facility use dose modulation, iterative reconstruction, and/or weight based dosing when appropriate to reduce radiation dose to as low as reasonably achievable. CTDIvol (mGy): 43.03 DLP (mGy-cm): 1354 Findings: CTA brain: The intracranial internal carotid arteries are without significant stenosis, dissection or aneurysm. Trace calcified atherosclerotic plaque in bilateral carotid siphons without significant luminal narrowing. origin of the right posterior cerebral artery. The right P1 segment is not visualized. The anterior, middle, and posterior cerebral arteries are without significant stenosis or aneurysm. The anterior communicating artery region is unremarkable. The right posterior communicating artery is prominent and patent. The left posterior communicating artery is not visualized. Posterior circulation is left dominant. The intracranial vertebral arteries are without significant stenosis, dissection or aneurysm formation. The basilar artery is without significant stenosis, dissection or aneurysm formation. CTA neck: Mild calcified atherosclerotic plaque in the thoracic aortic arch and origins of the great vessels without significant luminal narrowing. The common carotid arteries are without significant stenosis, dissection or aneurysm. The internal carotid arteries are without significant stenosis, dissection or aneurysm. Mild calcified atherosclerotic plaque at bilateral carotid bifurcations without significant luminal narrowing. The vertebral arteries are without significant stenosis, dissection or aneurysm. Soft tissue structures of the neck are unremarkable. The visualized proximal airway is patent. The osseous structures are unremarkable. Impression: 1. No large vessel occlusion, flow-limiting stenosis, or aneurysm of the intracranial arteries. 2. No evidence of flow-limiting stenosis, dissection or aneurysm formation of the carotid and vertebral arteries in the neck. Note: Measurement of carotid stenosis is based on velocity parameters that correlate the residual internal carotid diameter with that of the more distal vessel in accordance with [place] Symptomatic Carotid Endarterectomy Trial (NASCET). If you are a provider and would like to contact the interpreting physician or one of the staff members, please call . For patients who have questions in regard to this examination, please contact your referring doctor directly. EKG. EKG results below were independently viewed and interpreted by me. Date Performed: 01/18/2024 21:03:12 PDT Status: Signed Impression: SINUS RHYTHM WITH FIRST DEGREE AV BLOCK @ 76BPM NO ACUTE ST/T WAVE CHANGES READ AT 2103 ABNORMAL ECG Electronic Signature: MD Swetha, Mary Jane Guadalupe 01/18/2024 21:12:29 Re-evaluation The patient was placed on a cardiorespiratory monitor in the ED. No arrythmia or hemodynamic instability noted. Cardiac monitoring ordered, and as interpreted by myself. Rhythm is sinus rhythm with rate of 70 bpm. Patient was activated code stroke upon arrival. Discussed with teleneurology, agree patient would not be a TNK candidate given her low NIH stroke scale. Recommends admission for MRI tomorrow, and further stroke workup. CT brain, and CT angio of the head and neck were negative for acute process. Laboratory testing with leukocytosis was noted. UA is currently pending. IV fluids x 1 L ordered. Medical Decision Making Medical decision making -acute altered mental status, need to consider acute CVA, no other focal findings are noted, low NIH stroke scale, patient would not be a TNK candidate. UA is currently pending for possible infectious etiology, with leukocytosis noted. Will plan for admission, MRI tomorrow, stroke workup, etc. Case was discussed with Ann for Dr. Arellano for consult, and Dr. Aleman for admission - _ Diagnosis Altered mental status Condition Fair Disposition Admit to Telemetry Critical care time excluding separately billable procedures is 30 minutes. Prescriptions Current medications were reviewed and updated. MSEI Information MSEI MD/[employer]/PA Time Patient Seen face to face: Date and time 01/18/2024 20:28:13 Past Medical History Active Problems No active problems Allergies statins sulfa drugs Home Medications No active home medications Lab Results Last 3 Lab Results Lab WBC H 14.8 (01/18/24 20:40 PDT) RBC H 6.16 (01/18/24 20:40 PDT) HGB 13.4 (01/18/24 20:40 PDT) HCT 42.5 (01/18/24 20:40 PDT) MCV L 68.9 (01/18/24 20:40 PDT) MCH L 21.8 (01/18/24 20:40 PDT) MCHC 31.6 (01/18/24 20:40 PDT) RDW H 18.4 (01/18/24 20:40 PDT) PLT H 534 (01/18/24 20:40 PDT) MPV 7.60 (01/18/24 20:40 PDT) PT - Patient 13.2 (01/18/24 20:40 PDT) PT - INR 1.0 (01/18/24 20:40 PDT) PTT - Patient H 40 (01/18/24 20:40 PDT) Sodium Level 137 (01/18/24 20:40 PDT) Potassium Level 4.3 (01/18/24 20:40 PDT) Chloride Level 102 (01/18/24 20:40 PDT) CO2/Carbon Dioxide 28 (01/18/24 20:40 PDT) Anion Gap 7.0 (01/18/24 20:40 PDT) Glucose, Random 104 (01/18/24 20:40 PDT) POCT - Glucose (Capillary) H 118 (01/18/24 20:32 PDT) BUN 19 (01/18/24 20:40 PDT) Creatinine 0.67 (01/18/24 20:40 PDT) BUN/Creat Ratio H 28.4 (01/18/24 20:40 PDT) Osmolality, Calculated 276 (01/18/24 20:40 PDT) Calcium Level 9.0 (01/18/24 20:40 PDT) Total Protein 7.4 (01/18/24 20:40 PDT) Albumin Level 4.0 (01/18/24 20:40 PDT) Globulin Level 3.4 (01/18/24 20:40 PDT) A/G Ratio 1.2 (01/18/24 20:40 PDT) Bilirubin, Total 0.3 (01/18/24 20:40 PDT) AST 20 (01/18/24 20:40 PDT) ALT 14 (01/18/24 20:40 PDT) ALP 88 (01/18/24 20:40 PDT) Auto Neutrophil Percent H 75.9 (01/18/24 20:40 PDT) Auto Neutrophil Absolute H 11.2 (01/18/24 20:40 PDT) Auto Lymphocyte Percent L 14.5 (01/18/24 20:40 PDT) Auto Lymphocyte Absolute 2.1 (01/18/24 20:40 PDT) Auto Monocyte Percent 5.1 (01/18/24 20:40 PDT) Auto Monocyte Absolute 0.8 (01/18/24 20:40 PDT) Auto Basophil Percent 0.3 (01/18/24 20:40 PDT) Auto Basophil Absolute 0.0 (01/18/24 20:40 PDT) Auto Eosinophil Percent 4.2 (01/18/24 20:40 PDT) Auto Eosinophil Absolute H 0.6 (01/18/24 20:40 PDT) Troponin I High Sensitivity 11 (01/18/24 20:40 PDT) Auto NRBC % 0 (01/18/24 20:40 PDT) POCT - INR 1.3 (01/18/24 20:31 PDT) eGFR 87 (01/18/24 20:40 PDT) MDW 19.1 (01/18/24 20:40 PDT) [id number] Female 01/19/2024 [facility] Discharge Summaries Results Value Date Source Discharge Summary Patient: JEWEL CURRAN Age: 83 years Legal Sex: FEMALE : 1940 Admission Information Admit Date: 01/18/24 20:25 Reason for Admission: AMS (ALTERED MENTAL SATUS) Physicians Involved With Care Admitting: MD Jose, Marisela Attending: MD Garcia Qurat-Ul-Ain Consulting: HUGH Posadas Katherine A Consulting: MD Romulo, Mandeep Tadeo Consulting: DO Arellano Tung [place] Primary Care: UNABLE TO OBTAIN PROVIDERMD Final Diagnosis #Acute metabolic encephalopathy Possibly secondary to UTI. Mental status back to baseline. Patient is alert oriented x 4. No focal deficits noted. Cleared for discharge by neurology. Continue outpatient follow-up with PCP and urologist. Discharged on p.o. antibiotics. MRI brain results noted negative for CVA # Urinary tract infection -Plan to discharge on p.o. antibiotics # Leukocytosis possibly secondary to UTI. Improved. DC on p.o. antibiotics. See PCP in 2 to 3 days # Chronic joint pains from osteoarthritis -patient takes Tylenol at home as needed for joint pains. Continue outpatient follow-up with primary care physician # History of TIA Continue aspirin . Follow-up with neurologist as outpatient for further evaluation DVT ppx: Heparin GI ppx: Protonix Disposition -discharge home with close outpatient follow-up with PCP and neurology Discharge and follow up instruction discussed with patient in detail. Patient has verbalized understanding and agreement of instructions. Patient has verbalized appreciation of care patient received during this hospitalization Lab Results (Last three charted values) WBC H 11.5 (JANUARY 18) H 14.8 (JANUARY 17) Hgb 12.5 (JANUARY 18) 13.4 (JANUARY 17) Hct 40.6 (JANUARY 18) 42.5 (JANUARY 17) Plt H 499 (JANUARY 18) H 534 (JANUARY 17) Na 140 (JANUARY 18) 137 (JANUARY 17) K 3.8 (JANUARY 18) 4.3 (JANUARY 17) CO2 26 (JANUARY 18) 28 (JANUARY 17) Cl 107 (JANUARY 18) 102 (JANUARY 17) Cr L 0.49 (JANUARY 18) 0.67 (JANUARY 17) BUN 13 (JANUARY 18) 19 (JANUARY 17) Glu Rndm 82 (JANUARY 18) 104 (JANUARY 17) Ca L 8.3 (JANUARY 18) 9.0 (JANUARY 17) PT 13.2 (JANUARY 17) INR 1.0 (JANUARY 17) PTT H 40 (JANUARY 17) Trop I HS 11 (JANUARY 17) Images Magnetic Resonance Imaging Result Type: MRI Brain WO Contrast Result Date: January 19, 2024 14:58 PDT Reason For Exam: Stroke/TIA;Stroke/TIA REPORT: Exam: MRI Brain without contrast Indication: Neurologic deficits, stroke Comparison: CT head dated 01/18/2024 Technique: Utilizing a high-field MR scanner, an MRI of the brain was performed without intravenous contrast using multiple sequences in multiple planes. Findings: The ventricles, cisterns and sulci are normal for the patient's age. There is no midline shift. There is no extra-axial fluid collection. There is no evidence of acute intracranial hemorrhage. There is no evidence of restricted diffusion to suggest acute infarct. The white matter is within normal limits. The basal ganglia and thalami are unremarkable. The brainstem and cerebellum are within normal limits. The sellar and parasellar regions are unremarkable. The visualized paranasal sinuses are clear. The mastoid air cells are clear. The orbits are unremarkable. The bony calvarium is unremarkable. The soft tissues of the scalp are unremarkable. Impression: No evidence of acute infarct. No evidence of acute intracranial hemorrhage, midline shift or mass effect. If you are a provider and would like to contact the interpreting physician or one of the staff members, please call . For patients who have questions in regard to this examination, please contact your referring doctor directly. Physical Exam Vitals and Measurements T: 97.4 F HR: 84 RR: 18 BP: 128/71 SpO2: 95% HT: 157.5 cm WT: 73.9 kg BMI: 29.79 kg/[id number] Appearance: No acute distress. ANO x 3 HEENT: Normocephalic. Atraumatic, Cardiac: Normal rate and rhythm. No obvious murmur. Lungs: No rhonchi, wheezing or diminished breath sounds. Abdomen: Soft, non-distended, non-tender. No obvious mass palpable. Musculoskeletal: No joint deformity, erythema, or tenderness. Neurological: Alert oriented x 4, no forgetfulness or confusion noted, no focal deficits, ambulating in room without difficulty Skin: Skin normal color, texture and turgor Psychiatric: Normal affect during examination No suicidal ideation noted Discharge Plan Home Patient Discharge Condition Stable Discharge Disposition/Location Discharge Date: 01/19/24 Discharge Location: Home Discharge Medications (2) aspirin 81 mg, ORAL, DAILY (Ordered 01/19/24) Keflex 500 mg oral capsule 500 mg = 1 Cap, ORAL, Q8H, X 3 Day(s) (Ordered 01/19/24) Patient Education Warning Signs of a Stroke Transient Ischemic Attack High Cholesterol Follow-Up Provider: Flavio Arellano Date: Within 1 to 2 weeks Address: [facility] [address] [place] [phone] (1) Provider: UNABLE TO OBTAIN PROVIDER Date: Within 1 to 2 weeks Time Spent Coordinating Discharge More than 30 minutes [id number] Female 01/20/2024 [facility] History and Physicals Results Value Date Source Hospitalist Admission H&P 01/19/2024 [facility] [place] History and Physical Patient: DO ISAAC CURRAN Age: 83 years Legal Sex: FEMALE : 1940 Date of Service 01/18/2024 22:29 PDT Chief Complaint BIB family c/o difficulty speaking at 1999, was unable to complete a sentence. AOx3, unsure of year, Resp E/U, pt asking repetitive questions. 10/10 shoulder pain since last night. Baseline AOx4. Problem List Active Problems No qualifying data Inactive Problems No qualifying data History of Present Illness Patient is an 83-year-old female visiting from [place] with a past medical history of TIA on baby aspirin coming to the emergency department due to difficulty speaking, with family concerns of altered mental status. Family were concerned because she has had something similar in the past and was diagnosed with a TIA about a year ago. Patient was eating dinner with the family without distress and was normal, and then suddenly seemed confused and unable to recognize her . Patient currently believes she has at her son's house. Code stroke was called and teleneuro evaluated patient. Not a TNK candidate. Telemetry neuro does not feel it was an acute stroke. Patient will be admitted to telemetry for further evaluation and stroke rule out. Neurology consulted with Dr. Arellano. Review of Systems As seen in HPI Physical Exam Vitals and Measurements T: 97.6 F HR: 72 RR: 16 BP: 165/84 SpO2: 98% O2 Delivery: Room air WT: 65.5 kg(Dose Calc Wt.) WT: 65.5 kg Shock Index: 0.436 01/18/24 20:28 General Appearance: No acute distress. ANO x 3, patient appears to be much improved compared to what was discussed, patient says she does not recollect being confused HEENT: Normocephalic. Atraumatic, Cardiac: Normal rate and rhythm. No obvious murmur. Lungs: No rhonchi, wheezing or diminished breath sounds. Abdomen: Soft, non-distended, non-tender. No obvious mass palpable. Musculoskeletal: No joint deformity, erythema, or tenderness. Neurological: Normal motor, sensory, Skin: Skin normal color, texture and turgor Genitalia: Deferred. Psychiatric: Normal affect during examination Assessment/Plan _ AMS (altered mental status) (Altered mental status, unspecified, R41.82) Ordered: Admission Status Difficulty speaking (Difficulty speaking, [id number]) Orders: aspirin (aspirin), 81 mg, CHEW, DAILY, CHEW TAB, 01/18/24 22:24:00 PDT glucagon (glucagon), 1 mg, SUBQ, As directed, PRN, Blood Glucose, INJ, 01/18/24 22:22:00 PDT glucose (dextrose), = 50 mL, IV PUSH, As directed, PRN, Blood Glucose, INJ, 01/18/24 22:22:00 PDT glucose (dextrose), = 25 mL, IV PUSH, As directed, PRN, Blood Glucose, INJ, 01/18/24 22:22:00 PDT HEParin (HEParin), 5,000 units, SUBQ, Q8H, Indication = VTE Prophylaxis, INJ, 01/19/24 9:00:00 PDT labetalol (labetalol), 10 mg, IV PUSH, Q1HR, PRN, Blood Pressure, INJ, 01/18/24 22:22:00 PDT sodium chloride 0.9% (Sodium Chloride 0.9% Saline Flush), = 10 mL, IV FLUSH, As directed, PRN, IV Access Flush, INJ, 01/18/24 22:22:00 PDT sodium chloride 0.9% (Sodium Chloride 0.9% Saline Flush), = 10 mL, IV FLUSH, Q12H, INJ, 01/18/24 22:27:00 PDT sodium chloride 0.9% 250 mL (Sodium Chloride 0.9% IV Tubing Flush (TWO) 250 mL), 250 mL, IV, 01/18/24 22:22:00 PDT, 100 mL/hr, 2.5 hr, Order Weight 65.5, kg sodium chloride 0.9% 250 mL (Sodium Chloride 0.9% IV Tubing Flush (ONE) 250 mL), 250 mL, IV, 01/18/24 22:22:00 PDT, 100 mL/hr, 2.5 hr, Order Weight 65.5, kg A1C Hemoglobin NOT HPLC Basic Metabolic Panel BMP CBC w Differential CV Echo TTE Fingerstick/Capillary Blood Sugar Fingerstick/Capillary Blood Sugar Full Code Glucose Level Fasting Head of Bed Position Hypoglycemia Protocol Hypoglycemia Protocol Intermittent Pneumatic Compression Device Intermittent Pneumatic Compression Device Lipid Panel MRI Brain WO Contrast Neuro Checks NIH Scale NIH Scale NIH Scale Notify Physician Notify Physician NPO Oxygen Therapy Precautions Rapid Response Protocol Orders or Emergency Response per Protocol Saline Lock Protocol (18 years and older) Stroke Quality Measures Swallow Screen Telemetry Monitoring Treponema Ab CLIA (TrepCheck) TSH Thyroid Stim Horm 3rd Generation Vital Signs Vitamin B12 Level #Acute altered mental status, confusion #Metabolic encephalopathy #History of TIA Admit to telemetry CTA head and neck shows no LVO CT brain shows no bleed Ordered brain MRI for a.m. Continuing patient's home baby aspirin Not able to start high intensity statin as patient has an allergy to statins Echocardiogram ordered A1c and lipid panel ordered Per telemetry neuro recommendation, order TSH, B12 and RPR PT/OT when able N.p.o. for now until bedside swallow test Neurochecks and stroke protocol Permissive hypertension for now with labetalol Follow-up with neurology # History of TIA Resumed aspirin DVT ppx: Heparin GI ppx: Protonix Supportive Care The time reflected for this documentation does not necessarily reflect the true time of interaction with the patient I further certify that the patient/family/friends were encouraged to ask questions and that all questions were answered. Prognosis: GUARDED and will depend to patient's response to treatment Further treatment and evaluation will be based on hospital course and response to that treatment. Pending further evaluation, treatment, and consult recommendations, we anticipate this patient being discharged to previous living situation or appropriate care facility. Portions of this document may have been created using [employer] and may contain mistakes. Signature Line: Electronically Signed by: Lucinda Pacheco [facility] 01/19/2024 Allergies statins sulfa drugs Past Medical History No qualifying data available. Social History Abuse/Intent to Harm Abuse screen, adult/elderly/domestic: No signs of abuse Are you thinking of harming or killing anyone else?: No CSSRS Risk Level: No risk (0-24) CSSRS Suicide screening ED: Complete the suicide screening RT: RT000 Medications Inpatient Allergy Documented, Allergy Review, N/A, As directed Allergy Documented, Allergy Review, N/A, As directed Allergy Documented, Allergy Review, N/A, As directed aspirin, 81 mg, 1 Tab, CHEW, DAILY Benadryl, 25 mg, 1 Cap, ORAL, QBedtime, PRN dextrose, 25 mL, IV PUSH, As directed, PRN dextrose, 50 mL, IV PUSH, As directed, PRN glucagon, 1 mg, SUBQ, As directed, PRN HEParin, 5000 units, 1 mL, SUBQ, Q8H labetalol, 10 mg, 2 mL, IV PUSH, Q1HR, PRN Sodium Chloride 0.9% IV Tubing Flush (ONE) 250 mL, 250 mL, IV Sodium Chloride 0.9% IV Tubing Flush (TWO) 250 mL, 250 mL, IV Sodium Chloride 0.9% Saline Flush, 10 mL, IV FLUSH, Q12H Sodium Chloride 0.9% Saline Flush, 10 mL, IV FLUSH, As directed, PRN Tylenol, 500 mg, 1 ea, ORAL, QBedtime, PRN Home aspirin, 81 mg, ORAL, DAILY Lab Results Labs All 24H Lab Results Date MDW 19.1 units 01/18/24 20:40 PDT Auto NRBC % 0 % 01/18/24 20:40 PDT POCT - INR 1.3 01/18/24 20:31 PDT Auto Neutrophil Percent 75.9 % (HIGH) 01/18/24 20:40 PDT Auto Neutrophil Absolute 11.2 K/uL (HIGH) 01/18/24 20:40 PDT Auto Lymphocyte Percent 14.5 % (LOW) 01/18/24 20:40 PDT Auto Lymphocyte Absolute 2.1 K/uL 01/18/24 20:40 PDT Auto Monocyte Percent 5.1 % 01/18/24 20:40 PDT Auto Monocyte Absolute 0.8 K/uL 01/18/24 20:40 PDT Auto Basophil Percent 0.3 % 01/18/24 20:40 PDT Auto Basophil Absolute 0.0 K/uL 01/18/24 20:40 PDT Auto Eosinophil Percent 4.2 % 01/18/24 20:40 PDT Auto Eosinophil Absolute 0.6 K/uL (HIGH) 01/18/24 20:40 PDT Urine Culture Y/N Yes - 01/18/24 21:10 PDT WBC 14.8 K/uL (HIGH) 01/18/24 20:40 PDT RBC 6.16 M/uL (HIGH) 01/18/24 20:40 PDT HGB 13.4 gm/dL 01/18/24 20:40 PDT HCT 42.5 % 01/18/24 20:40 PDT MCV 68.9 fL (LOW) 01/18/24 20:40 PDT MCH 21.8 pg (LOW) 01/18/24 20:40 PDT MCHC 31.6 gm/dL 01/18/24 20:40 PDT RDW 18.4 % (HIGH) 01/18/24 20:40 PDT PLT 534 K/uL (HIGH) 01/18/24 20:40 PDT MPV 7.60 fL 01/18/24 20:40 PDT PT - Patient 13.2 sec 01/18/24 20:40 PDT PT - INR 1.0 01/18/24 20:40 PDT PTT - Patient 40 sec (HIGH) 01/18/24 20:40 PDT Sodium Level 137 mmol/L 01/18/24 20:40 PDT Potassium Level 4.3 mmol/L 01/18/24 20:40 PDT Chloride Level 102 mmol/L 01/18/24 20:40 PDT CO2/Carbon Dioxide 28 mmol/L 01/18/24 20:40 PDT Anion Gap 7.0 - 01/18/24 20:40 PDT Glucose, Random 104 mg/dL 01/18/24 20:40 PDT POCT - Glucose (Capillary) 118 mg/dL (HIGH) 01/18/24 20:32 PDT BUN 19 mg/dL 01/18/24 20:40 PDT Creatinine 0.67 mg/dL 01/18/24 20:40 PDT BUN/Creat Ratio 28.4 (HIGH) 01/18/24 20:40 PDT Osmolality, Calculated 276 mOsm/L 01/18/24 20:40 PDT Calcium Level 9.0 mg/dL 01/18/24 20:40 PDT Total Protein 7.4 gm/dL 01/18/24 20:40 PDT Albumin Level 4.0 gm/dL 01/18/24 20:40 PDT Globulin Level 3.4 gm/dL 01/18/24 20:40 PDT A/G Ratio 1.2 01/18/24 20:40 PDT Bilirubin, Total 0.3 mg/dL 01/18/24 20:40 PDT AST 20 IntUnit/L 01/18/24 20:40 PDT ALT 14 IntUnit/L 01/18/24 20:40 PDT ALP 88 IntUnit/L 01/18/24 20:40 PDT UA - Source/Collect Type Urine Voided 01/18/24 21:10 PDT UA - Color Yellow 01/18/24 21:10 PDT UA - Appearance Clear 01/18/24 21:10 PDT UA - Specific Miller 1.030 (ABNORMAL) 01/18/24 21:10 PDT UA - pH 6.0 01/18/24 21:10 PDT UA - Protein Negative 01/18/24 21:10 PDT UA - Glucose Negative 01/18/24 21:10 PDT UA - Ketones Negative 01/18/24 21:10 PDT UA - Bilirubin Negative 01/18/24 21:10 PDT UA - Blood Negative 01/18/24 21:10 PDT UA - Urobilinogen Negative 01/18/24 21:10 PDT UA - Nitrites Negative 01/18/24 21:10 PDT UA - Leukocyte Esterase Small (ABNORMAL) 01/18/24 21:10 PDT UA - WBC 7 /HPF (HIGH) 01/18/24 21:10 PDT UA - RBC <1 /HPF 01/18/24 21:10 PDT UA - Epithelials, Squamous Few 01/18/24 21:10 PDT UA - Bacteria Negative 01/18/24 21:10 PDT eGFR 87 mL/min/1.73m2 01/18/24 20:40 PDT Troponin I High Sensitivity 11 ng/L 01/18/24 20:[address] Brain WO Contrast 01/18/24 20:44:57 Impression: 1. No evidence of acute intracranial hemorrhage, midline shift or mass effect. 2. Mild generalized parenchymal volume loss with mild white matter changes in bilateral cerebral hemispheres, which are nonspecific but can be seen with chronic microvascular ischemia. If you are a provider and would like to contact the interpreting physician or one of the staff members, please call . For patients who have questions in regard to this examination, please contact your referring doctor directly. Chest 1 Vw Portable 01/18/24 21:13:29 Impression: No evidence of acute disease. If you are a provider and would like to contact the interpreting physician or one of the staff members, please call . For patients who have questions in regard to this examination, please contact your referring doctor directly. CT Angio Head/Neck W Contrast 01/18/24 21:05:36 Impression: 1. No large vessel occlusion, flow-limiting stenosis, or aneurysm of the intracranial arteries. 2. No evidence of flow-limiting stenosis, dissection or aneurysm formation of the carotid and vertebral arteries in the neck. Note: Measurement of carotid stenosis is based on velocity parameters that correlate the residual internal carotid diameter with that of the more distal vessel in accordance with [place] Symptomatic Carotid Endarterectomy Trial (NASCET). If you are a provider and would like to contact the interpreting physician or one of the staff members, please call . For patients who have questions in regard to this examination, please contact your referring doctor directly. Date Performed: 01/18/2024 21:03:12 PDT Status: Signed Impression: SINUS RHYTHM WITH FIRST DEGREE AV BLOCK @ 76BPM NO ACUTE ST/T WAVE CHANGES READ AT 2103 ABNORMAL ECG Electronic Signature: MD Swetha, Mary Jane Guadalupe 01/18/2024 21:12:29 [id number] Female 01/19/2024 [facility] Vital Signs Vital Sign Value Date Comments Source Temperature (F) 97.4 [degF] 01/19/2024 60 [facility] Peripheral Pulse Rate 84 bpm 01/19/2024 60 [facility] Respiratory rate 18 br/min 01/19/2024 60 [facility] Systolic BP 128 mm[Hg] 01/19/2024 60 [facility] Diastolic BP 71 mm[Hg] 01/19/2024 60 [facility] Pulse Oximetry 95 % 01/19/2024 60 [facility] Temperature (F) 97.4 [degF] 01/19/2024 60 [facility] Pulse Oximetry 97 % 01/19/2024 60 [facility] Peripheral Pulse Rate 76 bpm 01/19/2024 60 [facility] Systolic BP 138 mm[Hg] 01/19/2024 60 [facility] Diastolic BP 71 mm[Hg] 01/19/2024 60 [facility] Respiratory rate 18 br/min 01/19/2024 60 [facility] Temperature (F) 97.8 [degF] 01/19/2024 60 [facility] Peripheral Pulse Rate 84 bpm 01/19/2024 60 [facility] Systolic BP 137 mm[Hg] 01/19/2024 60 [facility] Diastolic BP 72 mm[Hg] 01/19/2024 60 [facility] Pulse Oximetry 97 % 01/19/2024 60 [facility] Respiratory rate 18 br/min 01/19/2024 60 [facility] HeightLength (cm) 157.5 cm [facility] Weight (kg) 73.9 kg 01/19/2024 60 [facility] Body Mass Index 29.79 kg/m2 01/19/2024 60 [facility] Dose calculation weight (kg) 73.9 kg 01/19/2024 60 [facility] Heart Rate Monitored 77 bpm 01/19/2024 60 [facility] Heart Rate Monitored 72 bpm 01/19/2024 60 A carlos [facility] Heart Rate Monitored 77 bpm [facility]/19/2024 [facility] (kg) 65.5 kg 01/19/2024 60 [facility] Dose calculation weight (kg) 65.5 kg 01/19/2024 60 [facility] Encounters Location Location Details Encounter Type Encounter Number Reason For Visit Attending Provider ADM Date DC Date Status Source 60 60 [facility] Observation [id number] AMS (ALTERE D MENTAL SATUS) [place] [place] 01/18 Active [facility] Procedures Procedure Code Date Perfomer Comments Source ROUTINE VENIPUNCTURE [id number] 01/19/2024 60 [facility] Plan of Care Plan of Care Date Source Diagnostic Tests PendingCult ure Urine 01/18/24Basic Metabolic Panel BMP 01/18/24CBC w Differential 01/18/24 [facility] [facility] Social History Social History Date Source Social History TypeResponse Smoking Status Is there a smoker in the household? No; *Do you have concerns about tobacco use in household? No; Never (less than 100 in lifetime); Never; *Are you ready to quit? No entered on: 01/19/24 Sex Female [facility] Social History TypeResponse Smoking Status Is there a smoker in the household? No; *Do you have concerns about tobacco use in household? No; Never (less than 100 in lifetime); Never; *Are you ready to quit? No entered on: 01/19/24 Sex Female 60 [facility] Amaya Jyoti rolly Social History TypeResponse Smoking Status Is there a smoker in the household? No; *Do you have concerns about tobacco use in household? No; Never (less than 100 in lifetime); Never; *Are you ready to quit? No entered on: 01/19/24 Sex Female 60 [facility] [employer] Jyoti rolly
--- OUTSIDE RECORDS SUMMARY | 2024-09-13 11:32 | XMS_ITS | Continuity of Care Document ---
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 Darkroom Worker Name Role Phone Curtis GILL MD, Ghulam Doshi Primary Care Physician Encounter [facility] Date(s): 08/02/24 - 09/01/24 [facility] [address], [address] [place] [id number] Encounter Type: Triage Allergies, Adverse Reactions, Alerts Substance Criticality Severity Reaction Reaction Severity Status amoxicillin Active sulfa drugs Active Aleve Active Adhesive Bandage Act marisel Contrast Dye Active Immunizations Given and Recorded Vaccine Date Status Refusal Reason SARS-CoV-2 (COVID-19) mRNA BNT-162b2 vac 12/22/20 Recorded SARS-CoV-2 (COVID-19) mRNA BNT-162b2 vac 12/01/20 Recorded Zoster Vaccine Live 11/20/09 Given pneumococcal 23-valent vaccine 08/04/09 Given Medications Aleve Caplet 0 Refills, Maintenance, 01/31/24 11:15:00 AM EDT, Partial fill upon patient request if the prescription is for a schedule II opioid drug. Start Date: 01/31/24 Status: Ordered Repeat number: 1 aspirin 81 mg oral delayed release tablet 81 mg, By Mouth, Daily, # 30 tablet, Refills 0, Tot. Refills 0, Maintenance, 12/13/22 4:06:00 PM EDT,Route to Pharmacy Electronically, [facility]/pharmacy #[id number], Partial fill upon patient request if the prescription is for a schedule II opioid drug., 163, cm, 12/13/22 10:20:00 EDT, Height, 70.5, kg, 12/12/22 8:32:00 EDT, Dry Weight Start Date: 12/13/22 Status: Ordered Quantity: 30.0 Unit: tablet Repeat number: 1 barium sulfate 2% oral suspension See Instructions, Plesse dispense 2 bottles, 450ml each, total [id number]. Drink 1st bottle [address]; drink 2nd bottle 1.[address] # 2 each, 0 Refills, Maintenance, 05/28/24 4:39:00 PM EDT, [facility]/pharmacy #[id number], Partial fill upon patient request if the prescription is for a schedule II opioid drug., Plesse dispense 2 bottles, 450ml each, total [id number]. Drink 1st bottle [address]; drink 2nd bottle 1.[address] 158, cm, 02/24/24 11:38:00 EDT, Height, 65, kg, 02/24/24 11:38:00 EDT, Dry Weight Start Date: 05/28/24 Status: Ordered Quantity: 2.0 Unit: each Repeat number: 1 Indication: Unilateral inguinal hernia, without obstruction or gangrene, not specified as recurrent clopidogrel 75 mg oral tablet 75 mg, 1, tablet, By Mouth, Daily, # 30 tablet, Refills 0, Tot. Refills 0, Maintenance, 03/07/23 8:44:00 PM EDT, Route to Pharmacy Electronically, [facility]/pharmacy #[id number], Partial fill upon patient requestif the prescription is for a schedule II opioid drug., 158, cm, 03/07/23 18:26:00 EDT, Height, 60, kg, 03/07/23 16:43:00 EDT, Dry Weight Start Date: 03/07/23 Status: Ordered Quantity: 30.0 Unit: tablet Repeat number: 1 cyanocobalamin 100 mcg oral tablet 100 mcg, 1, tablet, By Mouth, Daily, # 30 tablet, Refills 0, Tot. Refills 0, Maintenance, 12/13/22 4:06:00 PM EDT, Route to Pharmacy Electronically, [facility]/pharmacy #[id number], Partial fill upon patient request if the prescription is for a schedule II opioid drug., 163, cm, 12/13/22 10:20:00 EDT, Height, 70.5, kg, 12/12/22 8:32:00 EDT, Dry Weight Start Date: 12/13/22 Status: Ordered Quantity: 30.0 Unit: tablet Repeat number: 1 Tylenol Caplet = 650 mg, By Mouth, Every 4 hours, 0 Refills, Maintenance, 03/21/19 5:39:30 PM EDT Start Date: 03/21/19 Status: Ordered Repeat number: 1 Problem List Condition Confirmation Course Effective Dates Status H ealth Status Informant History of CVA in adulthood Confirmed Active Hyperlipidemia Confirmed Active Hypertension Confirmed Active Obesity Confirmed Active Polymyalgia rheumatica Confirmed Active Social History Social History Type Response Smoking Status Never smoker entered on: 03/12/17 Sex Sex Representation Female (finding) Patient Care team information Care Team Personnel Name: Ghulam Acevedo III, MD Position: Reference Physician Member Role: PCP Address: [address] [place] [address] Telecom: Name: Yamilex Phillips Position: [facility] Outreach Member Role: Lifetime Consulting Physician Care Team Related Persons Name: JA GARCIA Name: JENNI CURRAN Insurance Providers Guarantor name: VIJAY CURRAN Health Plan Information #: 1 Payer: MEDICARE HMO BLUE [id number] REPLC Member Number: NA Policy Number: NA Group Number: NA Health Plan Information #: 2 Payer: [facility] Member Number: NA Policy Number: NA Group Number: NA
== END 2024-09-13 11:39 | disposition home or self-care (01) ==
PROVIDERS: PCP Internal Medicine; Visit Provider Orthopaedic Surgery
DX: M19.011 Primary osteoarthritis, right shoulder (principal)
CPT/HCPCS: 99213; G2211

== ENCOUNTER → 2024-09-13 11:07 | Outpatient (BNV) | payer MEDICARE, SELFPAY | PROVIDERS: Visit Provider Radiology Diagnostic Radiology | DX: M19.011 Primary osteoarthritis, right shoulder (principal) | CPT/HCPCS: 73030 ==

== ENCOUNTER 2024-10-23 10:51 | Outpatient (AMB) | payer MEDICARE, OTHER, SELFPAY ==
--- NOTE | 2024-10-23 10:54 | MHC.OFFVIS ---
Vital Signs 10/23/24 11:09 Height 5 ft 2 in Weight 137 lb 8 oz BMI 25.1 Pulse 62 Intake Visit Reasons: 3 mth fu S/P Lt. brst lumpectomy w/NL & SN bx Intake Note: Patient is seen in office for 3 month follow up visit, post left breast lumpectomy. Pt c/o: per pt has no concerns regarding the breast, oncologist offer Tamoxifen however recommended that is wasn't needed per pt Dr English:07/16/24 mm:06/05/24 3D Specialist Required: No Inspector Barrel: Inspector Barrel Present Accompanied by: Self / Same As Patient Allergies IV Contrast Allergy (Severe, Uncoded 10/23/24 11:09) Rash/swelling Latex Allergy (Severe, Uncoded 10/23/24 11:09) Rash/blisters Medical Tape Allergy (Severe, Uncoded 10/23/24 11:09) Rash/blisters amoxicillin Allergy (Intermediate, Uncoded 10/23/24 11:09) Swelling sulfa drugs Allergy (Intermediate, Uncoded 10/23/24 11:09) Rash Medication List - Last Reconciled 10/23/24 by Alistair Tyler MD acetaminophen 1,000 mg PO TID PRN aspirin 81 mg PO DAILY tuniye-mhwh-fltt-levomef-silic 10-50-500-0.5 mg 1 cap PO DAILY calcium carbonate-vitamin D3 600 mg-5 mcg (200 unit) 1 tab PO DAILY cyanocobalamin (vitamin B-12) 100 mcg PO DAILY ergocalciferol (vitamin D2) 1,250 mcg PO QWEEK lisinopril 10 mg PO DAILY omega 3-jfb-rdd-fish oil 1,000 (120-180) mg (Fish Oil) 1 cap PO TID solifenacin 5 mg PO BEDTIME HPI Comments Details: Bella Hinton is a 84 year old female patient former patient of Dr. Lund returning following left breast lumpectomy with localizer and left axillary sentinel node biopsy performed on 06/12/2024. Mammogram of 03/26/2024 revealed a focal asymmetry in the left breast confirmed on subsequent images and ultrasound. She underwent an ultrasound-guided core biopsy of the left breast on 05/17/2024 which revealed invasive breast cancer with mixed lobular and ductal features, grade 3, ER/NV positive, Ki-67 high proliferation index. She underwent a left breast lumpectomy with localizer and left axillary sentinel node biopsy on 06/12/2024. Pathology revealed a 2.3 cm invasive ductal carcinoma with lobular features, grade 3, ER/NV positive, HER2 [place]ris negative, Ki-67 high with negative margins, DCIS with greater than 2 mm margins. One left axillary sentinel node revealed isolated tumor (pT2, pN0 (sn) (i+)). Her past history is significant for a previous right partial mastectomy with sentinel node biopsy ([place]) performed in 2007 for an invasive lobular carcinoma with DCIS, ER/NV positive, HER2 Idris negative. [place] nodes were negative for metastatic disease. She subsequently underwent radiation therapy which was completed on 04/01/2008. Patient refused aromatase inhibitor therapy. Her postoperative course was complicated by hematoma and she continues to feel a lump at the site of surgery. She recently went to [place] to visit her children and had a good visit. She was evaluated by Dr. English and a bone density scan requested to determine whether she will go on tamoxifen or AI. She was subsequently evaluated by Dr. Onofre at [facility]. They also discussed adjuvant treatment but she was concerned about the side effects in the decision was made to hold off on radiation therapy and aromatase inhibitor/tamoxifen. She denies any new breast symptoms. 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) Osteoarthritis Lumbar stenosis Thyroid nodule History of diverticulosis Asthma Hx of radiation therapy Invasive ductal carcinoma of right breast Arthritis Surgical History History of lumpectomy of left breast (06/12/24) Hx of cataract extraction Hx of umbilical hernia repair Hx of kyphoplasty Hx of total knee replacement (~2020) History of total mastectomy of right breast (2007) History of right breast biopsy History of incisional hernia repair History of hysterectomy Family History Mother Breast cancer Social History Household Members: Significant Other Are you a primary floor care specialist to a significant other at home: No Do you presently have visiting nurse or other home services: No Alcohol intake: never Patient Tobacco Use Status: Never used Tobacco service: No Current occupational status: disabled Female Reproductive History Menstrual Age of Menarche: 11 Review of Systems Const All systems reviewed & are unremarkable except as noted in HPI and below GI Reports no additional complaints Denies nipple discharge Musc Reports no additional complaints Skin/Breast Denies breast swelling, Denies breast skin changes, Reports breast pain, Reports breast mass, Denies new lesions and Denies nipple discharge Physical Exam Const General: cooperative, comfortable, no acute distress, well developed, alert and awake Orientation/consciousness: patient oriented x3 Limitations: no limitations Neck Lymphatic: no lymphadenopathy noted Chest Other: Well-healed incision in the lower outer quadrant left breast and axilla. No redness, ecchymosis, or palpable hematoma/seroma is identified. No other palpable masses appreciated in the left breast. Right breast continues to show the chronic scar tissue from previous partial mastectomy in the upper inner quadrant. No other palpable mass, skin change or enlarged lymph nodes are appreciated. Chest/axillae images: 1. Chronic scarring from lumpectomy incision upper inner quadrant essentially unchanged Resp Effort & Inspection: normal respiratory effort GI Inspection: Yes normal to inspection Skin General skin exam: no rashes or lesions noted Neuro General: patient oriented x3 Extrem General: Yes no clubbing, cyanosis or edema Assessment & Plan Assessment & Plan (1) Invasive ductal carcinoma of left breast: Code(s): C50.912 - Malignant neoplasm of unspecified site of left female breast Category: Medical Plan 84-year-old female patient previous history of right breast carcinoma now with a new left breast invasive ductal carcinoma with lobular features returning status post left breast lumpectomy with localizer and left axillary sentinel node biopsy. She tolerated the procedure well. She will continue to follow up with Medical Oncology. She is now thinking that she may want to take some additional treatment for the breast cancer. I recommended she contact to discuss her options. I recommended she return in approximately 6 months for follow-up breast examination. She is welcome to call sooner for any new concerns. Coding Level of Care Code Est Pt Level 3 (36334) Complex EM visit Add On G2211 Diagnoses Invasive ductal carcinoma of left breast C50.912
[2024-10-23 11:09] VITALS: PULSE 62; BMI 25.1
== END 2024-10-23 11:28 | disposition home or self-care (01) ==
PROVIDERS: PCP Internal Medicine; Visit Provider Surgery
DX: C50.912 Malignant neoplasm of unspecified site of left female breast (principal)
CPT/HCPCS: 99213; G2211

== ENCOUNTER → 2024-10-23 10:51 | Outpatient (BNVA) | payer MEDICARE, SELFPAY | PROVIDERS: PCP Internal Medicine; Visit Provider Surgery | DX: C50.912 Malignant neoplasm of unspecified site of left female breast (principal) | CPT/HCPCS: 99212 ==

== ENCOUNTER 2025-03-21 13:48 | Outpatient (REF) | payer MEDICARE, OTHER, SELFPAY ==
--- OUTSIDE RECORDS SUMMARY | 2025-03-21 13:51 | XMS_ITS | Encounter Summary ---
Author Organization [facility] Address [address] [place] [address] Care Team Providers Care Log Scaler Name Role Phone Ghulam Acevedo MD Primary Care Provider [phone] Reason for Visit * Reason Onset Date Comments faxed order 03/11/2025 [facility] home [facility]th order [id number] Encounter Details Date Type Department Care Team ([facility] st Contact Info) Description 03/11/2025 Telephone Adult Medicine [address] [phone] Ghulam Acevedo MD [address] [place] [phone] faxed order ([facility] home health order [id number]) Social History Tobacco Use Types Packs/Day Years Used Date Smoking Tobacco: Never Smokeless Tobacco: Never Alcohol Use Standard Drinks/Week Comments No 0 (1 standard drink = 0.6 oz pur e alcohol) Housing Instability Answer Date Recorde d Are you worried that in the next 2 months you may not have stable housing? No 01/11/2025 Food Access & Nutrition Answer Date Rec orded Do you have access to a vari ety of food including fruits and vegetables? Yes 01/11/2025 Access to Healthcare Answer Date Record ed Within the last 3 months, manoj w many times did you visit the emergency department for your medical care? 3 01/11/2025 Financial Risk Answer Date Recorded How hard is it for you to pa y for the very basics like food, housing, medical care, and air conditioning / heating? Not very hard 01/11/2025 Transportation Answer Date Recorded Has the lack of transportati on kept you from meetings, work, or from getting things needed for daily living? No Has the lack of transportati on kept you from medical appointments or from getting medications? No 01/11/2025 Food Risk Answer Date Recorded Within the past 12 months we worried whether our food would run out before we got money to buy more. Never true 01/11/2025 Within the past 12 months th e food we bought just didn't last and we didn't have money to get more. Never true 01/11/2025 Education Answer Date Recorded Do you think completing more education or training, like finishing a GED, going to college, or learning a trade, would be helpful for you? N/A 01/11/2025 Employment and Income Answer Date Recor ded During the last four weeks, have you been actively looking for work? No 01/11/2025 Living Situation Answer Date Recorded What is your living situation? 0 01/11/2025 Comments No Sex and Gender Information Value Date Recorded Sex Assigned at Not on file Legal Sex Female 1:44 AM EST Gender Identity Not on file Sexual Orientation Not on file documented as of this encounter Progress Notes * Tash Forrester - 03/11/2025 11:46 AM EDT [facility] home health order [id number] received please sign and fax to [phone] documented in this encounter Plan of Treatment Upcoming Encounters Date Type Department Care Team (Late st Contact Info) Description 03/26/2025 11:15 AM EDT Clinical Support [facility] [address] [place] [address] 05/23/2025 11:30 AM EDT Office Visit Adult Medicine [address] [phone] Ghulam Acevedo MD [address] [place] [phone] 07/22/2025 11:00 AM EST Office Visit [facility] Hematology Oncology [address] [place] [address] Elo Onofre MD [address] [place] [address] documented as of this encounter Goals Goal Patient Goal Type Associated Problems Recent Progress Patient-Stated? Author Decrease Wound Volume by X% by date (in notes) Care Plan Impaired Tissue On track( 3:53 PM EDT) Calista Vidal RN Patient and Caregiver Understand Wound Care Education Care Plan Impaired Tissue On track( 3:53 PM EDT) Calista Vidal RN Wound volume breakdown reduced by X% by week 4 Care Plan Impaired Tissue Calista Vidal RN Wound volume breakdown reduced by X% by week 8 Care Plan Impaired Tissue Calista Vidal RN Wound volume breakdown reduced by X% by week 12 Care Plan Impaired Tissue Calista Vidal RN Quit using tobacco (cigarettes, smokeless, etc) Care Plan Education needed on impact of smoking on wound Calista Vidal RN Reduce tobacco use (cigarettes, smokeless, etc) Care Plan Education needed on impact of smoking on wound Calista Vidal RN Decrease Wound Volume by X% by date (in notes) Care Plan Education needed on impact of smoking on wound Calista Vidal RN Patient and Caregiver Understand Wound Care Education Care Plan Education needed related to ulceration/compr omised skin integrity. No Calista Mcmahan RN documented as of this encounter Visit Diagnoses Not on filedocumented in this encounter Additional Health Concerns Active Problems Noted Date Diagnosed Date Impaired Tissue 01/29/2025 Education needed on impact of smoking on wound 0 01/29/2025 Education needed related to ulceration/compromised skin integrity. 01/29/2025 Assessment Noted Time PHQ-9 Depression Total Score: 0 11/09/19 11:06 AM EST A fall risk assessment has been complete d for the patient 11/09/2024 11:01 AM EST documented as of this encounter Care Teams Log Scaler Relationship Specialty Start Date End Date Ghulam Acevedo MD [address] [place] [phone] PCP - General Internal Medicine 05/27/21 documented as of this encounter
--- OUTSIDE RECORDS SUMMARY | 2025-03-21 13:52 | XMS_ITS | Clinical Summary ---
Author Organization [facility] Setup & [facility] lin Address [address] [facility] [place] [address] Care Team Providers Care Senior Front End Developer Name Role Phone Unavailable Primary Care Provider Unavailabl e Social History Tobacco Use Types Packs/Day Years Used Date Smoking Tobacco: Never Assessed Comments Unknown Sex and Gender Information Value Date Recorded Sex Assigned at Not on file Legal Sex Female 10:31 AM EST Gender Identity Not on file Sexual Orientation Not on file Plan of Treatment Health Maintenance Due Date Last Done Comments Depression: Screening Annual ly using PHQ-2/9 in Adults 18 yrs or above (or HM Modifier)([facility]) 1958 SDOH Screening Reminder: Annika hameed for all adults ([facility]) 1958 Tobacco Smoking Cessation: i n Adults excluding Women: Behavioral and Pharmacotherapy Interventions ([facility]) 1958 DTaP/Tdap/Td Vaccines ([facility]) (1 - Tdap) 1960 Pneumococcal Vaccination Scr eening: Patients 50+ yrs of age ([facility]) (1 of 1 - PCV) 1991 Zoster/Shingles Vaccine Seri es Screening: Adults aged 18+ yrs (or HM Modifiers)([facility]) (1 of 2) 1991 Osteoporosis Screening to Pr event Fractures: Women aged 65 years+ ([facility]) 2006 RSV Vaccines (1 - 1-dose 75+ series) 2016 COVID-19 Vaccine Screening: Initial Series and Booster Status ([facility]) ( - 2023- season) 2024 Flu Vaccination: Ages 65+: Y early High Dose Recommended (or Modifier)([facility]) 04/12/2025 Medical Devices Not on file Insurance ([place]) [address] [place], [place] [address] [facility]
--- OUTSIDE RECORDS SUMMARY | 2025-03-21 13:52 | XMS_ITS ---
Author Name [facility] Organization Unknown History of Medication Use Medication Directions Dispensed Refills Start Date End Date Stat acetaminophen-codeine (TYLENOL #3) 300-30 mg per tablet Take 1 tablet by mouth every 6 (six) hours if needed for severe pain for up to 5 days. Max Daily Amount: 4 tablets 02/15/2025 active clobetasoL (TEMOVATE) 0.05 % ointment Apply a rice-grain amount of ointment in a thin film to affected area on the vulva two times a week. 02/11/2025 active traMADoL (ULTRAM) 50 mg tablet Take 1 tablet (50 mg total) by mouth every 6 (six) hours if needed for moderate pain. Max Daily Amount: 200 mg 02/07/2025 active zinc oxide 20 % ointment Apply topically if needed for irritation. Apply around wound as directed 02/05/2025 active pregabalin (LYRICA) 75 mg capsule Take 1 capsule (75 mg total) by mouth at bedtime. Max Daily Amount: 75 mg 01/24/2025 active gabapentin (NEURONTIN) 100 mg capsule Take 1 capsule (100 mg total) by mouth 2 (two) times a day. 01/14/2025 active collagenase (SANTYL) 250 unit/gram ointment Apply topically 1 (one) time each day. 01/03/2025 active bisacodyL (DULCOLAX) 5 mg EC tablet Take 2 tablets by mouth right before beginning bowel prep. See instructions provided by the office 12/28/2024 active cephalexin (KEFLEX) 500 mg capsule Take 1 capsule (500 mg total) by mouth 4 (four) times a day. for 7 days 12/28/2024 active doxycycline (VIBRAMYCIN) 100 mg capsule Take 1 capsule (100 mg total) by mouth 2 (two) times a day. 7 days 12/28/2024 active polyethylene glycol (Golytely) 236-22.74-6.74 -5.86 gram solution Take 4L by mouth once for one dose. May substitue any PEG. Starting at 6PM the night before your procedure drink 1 8oz glasses at your own pace until you complete half of the gallon. Finish 2nd half of the gallon 5 hours before your procedure. 12/28/2024 active Vitamin C 500 mg tablet Take 1 tablet (500 mg total) by mouth 2 (two) times a day. 12/28/2024 active lisinopril (PRINIVIL,ZESTRIL) 40 mg tablet Take 1 tablet (40 mg total) by mouth 1 (one) time each day. 10/12/2024 active ergocalciferol (VITAMIN D-2) 1,250 mcg (50,000 unit) capsule 09/21/2024 active ciprofloxacin (CILOXAN) 0.3 % ophthalmic solution 04/07/2024 activ e aspirin 81 mg EC tablet Take 1 tablet (81 mg total) by mouth daily. active calcium carb,gluc-mag gluc,ox (Calcium Magnesium) 500 mg calcium- 250 mg tablet Take 3 tablets by mouth 1 (one) time each day. active calcium carbonate (CALCIUM 500 ORAL) Take by mouth. ac tive cholecalciferol (VITAMIN D-3) 25 mcg (1,000 unit) tablet Take 1 tablet (1,000 Units total) by mouth daily. active cyanocobalamin (VITAMIN B-12) 500 mcg tablet active solifenacin (VESICARE) 5 mg tablet Take 1 tablet (5 mg total) by mouth. at bedtime. active Allergies Allergen Reaction Severity Comment Documented Date Source Statu s ADHESIVE TAPE-SILICONES 11/01/2024 [facility] active LATEX 10/09/2024 [facility] active SULFAMETHOXAZOLE- TRIMETHOPRIM 10/09/2024 [facility] active AMOXICILLIN 08/03/2021 [facility] active IODINATED CONTRAST MEDIA 08/03/2021 [facility] active NAPROXEN 08/03/2021 [facility] active SULFUR 08/03/2021 [facility] active OTHER Tape: Skin irritation with blood 10/10/2017 [facility] active Problems Problem Status Onset Date Problem Type Date of Resolution Source Neuropathy active 2018-08-01 ProblemAct [facility] Polymyalgia rheumatica ([facility]) active 2021-08-09 ProblemAct [facility] Mild intermittent asthma without complication active 2021-08-09 ProblemAct [facility] Thyroid nodule active 2020-04-25 ProblemAct [facility] Myeloproliferative neoplasm ([facility] V24, [facility] V28) active 2024-07-19 ProblemAct [facility] Prediabetes active 2018-03-21 ProblemAct [facility] Esophageal dysphagia active 2024-11-15 ProblemAct [facility] Left inguinal hernia active 2021-08-09 ProblemAct [facility] Chronic venous hypertension (idiopathic) with ulcer of left lower extremity (CODE) ([facility] V24, 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 V24, [facility] V28) active 2025-01-29 ProblemAct [facility] Essential hypertension, benign active 2021-08-09 ProblemAct [facility] Contusion of left leg active 2025-01-29 ProblemAct [facility] Lumbar stenosis with neurogenic claudication active 2018-02-01 ProblemAct [facility]T HS[facility] History of total knee arthroplasty, right active 2019-11-12 ProblemAct [facility] Invasive ductal carcinoma of left breast, stage 2 ([facility] V24, 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 active 2020-10-07 ProblemAct [facility] Osteoarthritis cervical spine active 2020-10-07 ProblemAct [facility] Osteopenia of multiple sites active 2021-08-09 ProblemAct [facility] Immunizations Vaccine Date Source Lot Number Status Influenza trivalent, 0.5mL ( Fluzone High-dose) 65yo and older 05/30/2024 [facility] [id number] comple cynthia Influenza trivalent, 0.5mL ( Fluzone High-dose) 65yo and older 07/13/2021 [facility] [id number] comple cynthia Zoster recombinant (Shingrix ) 19yo and older 05/11/2021 [facility] [id number] completed [employer] SARS-CoV-2 COVID-19, mRNA, LNP-S, preservative free 12/22/2020 [facility] [id number] completed [employer] SARS-CoV-2 COVID-19, mRNA, LNP-S, preservative free 12/01/2020 [facility] [id number] completed Zoster recombinant (Shingrix ) 19yo and older 08/05/2020 [facility] [id number] completed Influenza trivalent, 0.5mL ( Fluzone High-dose) 65yo and older 07/02/2020 [facility] [id number] comple cynthia Influenza trivalent, 0.5mL ( Fluad) 65yo and older 05/30/2019 [facility] [id number] completed Tdap Tetanus diptheria acell ular pertussis (Boostrix; Adacel) 7yo and older 05/30/2019 [facility] [id number] completed Influenza trivalent, 0.5mL ( Fluzone High-dose) 65yo and older 06/24/2018 [facility] [id number] comple cynthia Influenza trivalent, 0.5mL ( Fluzone High-dose) 65yo and older 10/25/2017 [facility] [id number] comple cynthia Influenza trivalent, 0.5mL ( Fluzone High-dose) 65yo and older 09/01/2016 [facility] [id number] comple cynthia Influenza trivalent, with pr eservative (Fluzone; Afluria) 6mo and older 07/07/2011 [facility] [id number] completed Influenza trivalent, with pr eservative (Fluzone; Afluria) 6mo and older 06/29/2010 [facility] completed Zoster Live 11/20/2009 [facility] [id number] completed Pneumococcal polysaccharide 23 valent (Pneumovax 23) 2yo and older 08/04/2009 [facility] 1409X com pleted Td Tetanus diptheria (Tdvax) 7yo and older 07/22/2008 [facility]_T HS[facility]AN completed
--- OUTSIDE RECORDS SUMMARY | 2025-03-21 13:52 | XMS_ITS | Clinical Summary ---
Author Organization [facility] Address [address] [place] [address] Care Team Providers Care Marketing Pr Intern Name Role Phone Ghulam Acevedo MD Primary Care Provider [phone] Allergies Active Allergy Reactions Criticality Noted Date Comments Naproxen 08/03/2021 Amoxicillin 08/03/2021 Elemental Sulfur 08/03/2021 Iodinated Contrast Media 08/03/2021 Tape 06/06/2024 Medications Medication Sig Dispensed Refills Start Date End Date Status [place]-3 Fatty Acids (FISH OIL OMEGA-3 PO) Take by mouth. 0 Active cholecalciferol (VITAMIN D3) 1000 UNITS tablet Take 1 tablet (1,000 Units total) by mouth daily. 0 Active Calcium Carbonate (CALCIUM 500 PO) Take by mouth. 0 Acti ve vitamin B-12 (CYANOCOBALAMIN) 500 MCG tablet Take 1 tablet (500 mcg total) by mouth daily. 0 Active aspirin EC 81 MG tablet Take 1 tablet (81 mg total) by mouth daily. 0 Active Active Problems Problem Noted Date Diagnosed Date Mild intermittent asthma without complication Essential hypertension, benign 08/09/2021 Personal history of malignant neoplasm of breast 08/09/2021 Osteopenia of multiple sites 08/09/2021 Elevated lipids 08/09/2021 Left inguinal hernia 08/09/2021 Polymyalgia rheumatica 08/09/2021 S/P TKR (total knee replacement), right 11/12/19 20 Resolved Problems Problem Noted Date Diagnosed Date Resolved Date Malignant neoplasm of overla pping sites of right breast in female, estrogen receptor positive 08/09/2021 08/09/2021 Overview: History of breast cancer [Z85.3] 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, 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, sentinel nodes neg; 2008 Lumpectomy, radiation Family History Medical History Relation Name Comments Multiple sclerosis Daughter Breast cancer Father Diabetes Father Breast cancer Mother Hypertension Mother Arthritis Son Relation Name Status Comments Daughter Father Mother Son Social History Tobacco Use Types Packs/Day Years Used Date Smoking Tobacco: Never Smokeless Tobacco: Never Alcohol Use Standard Drinks/Week Comments Never 0 (1 standard drink = 0.6 oz pur e alcohol) Sex and Gender Information Value Date Recorded Sex Assigned at Not on file Gender Identity Not on file Sexual Orientation Not on file Job Start Date Occupation Industry Not on file Not on file Not on file Last Filed Vital Signs Vital Sign Reading Time Taken Comments Blood Pressure 150/69 06/06/2024 11:09 AM EDT Pulse 66 06/06/2024 11:09 AM EDT Temperature 37 C (98.6 F) 06/06/2024 11:09 AM EDT Respiratory Rate - - Oxygen Saturation 100% 06/06/2024 11:09 AM EDT Inhaled Oxygen Concentration - - Weight 62.6 kg (138 lb) 06/06/2024 11:09 AM EDT Height 162.6 cm (5' 4 ) 12/26/2023 3:17 PM EDT Body Mass Index 23.69 12/26/2023 3:17 PM EDT Plan of Treatment Health Maintenance Due Date Last Done Comments Depression Screening 1952 Preventative Health Evaluation 1959 Fall Risk Assessment 2006 Osteoporosis Screening (DEXA Scan) 2006 Pneumococcal Vaccine (2 of 2 - PCV) 08/04/2010 08/04/2009 RSV Adult > 60+ Yrs or (1 - 1-dose 75+ series) 2016 COVID-19 Vaccine (3 - Pfizer risk series) 01/19/2021 12/22/2020, 12/01/2020 Influenza Vaccine (#1) 2025 , 07/02/2020, 05/30/2019, Additional history exists DTap / Tdap / Td (2 - Td or Tdap) 05/30/2029 05/30/2019 Shingrix-Zoster Vaccine Completed 05/11/2021, 08/05 Hepatitis B Vaccines Aged Out No long er eligible based on patient's age to complete this topic RSV Ped < 20 months Aged Out No longe r eligible based on patient's age to complete this topic Care Teams Marketing Pr Intern Relationship Specialty Start Date End Date Ghulam Acevedo MD PCP - General Internal Medicine 07/23/21
== END 2025-03-21 13:49 | disposition home or self-care (01) ==
LOC: HO.US 13:48
PROVIDERS: PCP Internal Medicine; Visit Provider Student in an Organized Health Care Education/Training Program
DX: Z13.89 Encounter for screening for other disorder (principal)

== ENCOUNTER 2025-04-05 12:35 | Outpatient (REF) | payer MEDICARE, OTHER, SELFPAY ==
--- OUTSIDE RECORDS SUMMARY | 2025-04-05 12:38 | XMS_ITS | Clinical Summary ---
Author Organization [facility] Address [address] [address] Phone Care Team Providers Care Lapel Baster Name Role Phone Maine Vincent MD Primary Care Pro vider Allergies Active Allergy Reactions Criticality Noted Date Comments Adhesive Rash Low 10/30/2019 Clear tape, bandaids Naproxen Sodium Angioedema 10/30/2019 Amoxicillin 10/30/2019 Perineal swelling Iodinated Contrast Media 10/30/2019 Medications cholecalciferol (VITAMIN D3) 25 MCG (1,000 unit) tablet Take 1,000 Units by mouth. Active acetaminophen (TYLENOL) 325 mg tablet Take 650 mg by mouth every 6 (six) hours as needed for mild pain. Active HYDROmorphone (DILAUDID) 2 MG tablet Take 1-3 tablets (2-6 mg total) by mouth every 3 (three) hours as needed. Partial fill ok 10 tablet 0 Active enoxaparin (LOVENOX) 40 mg/0.4 mL Syrg subcutaneous syringe Inject 0.4 mL (40 mg total) under the skin daily. 0 Active oxyCODONE 5 MG immediate release tablet Take 1 tablet (5 mg total) by mouth every 4 (four) hours as needed for moderate pain. Partial fill ok 30 tablet 0 Active traMADoL (ULTRAM) 50 mg tablet Take 1 tablet (50 mg total) by mouth every 6 (six) hours as needed for pain (specific location in comments). 30 tablet 0 Active clindamycin (CLEOCIN) 300 MG capsule Take 2 capsules 1 hour prior to dental work 8 capsule 1 0 Active Active Problems Problem Noted Date Diagnosed Date S/P TKR (total knee replacement), right 11/12/19 20 Social History Tobacco Use Types Packs/Day Years Used Date Smoking Tobacco: Never Smokeless Tobacco: Never Alcohol Use Standard Drinks/Week Comments Never 0 (1 standard drink = 0.6 oz pur e alcohol) Education Answer Date Recorded Are you interested in more education? Not on jordana e 01/06/2023 Are you concerned about learning? Not on file 01/06/2023 No 01/06/2023 No 01/06/2023 Digital Access Answer Date Recorded No 02/07/2023 No 02/07/2023 No 02/07/2023 Reliable internet access at home? Not on file 02/07/2023 Device with a working camera? Not on file Comments No Sex and Gender Information Value Date Recorded Sex Assigned at Not on file Legal Sex Female 7:31 PM EST Gender Identity Not on file Sexual Orientation Not on file Last Filed Vital Signs Vital Sign Reading Time Taken Comments Blood Pressure 132/63 11/15/2019 7:07 AM EST Pulse 81 11/15/2019 7:07 AM EST Temperature 37 C (98.6 F) 11/15/2019 7:07 AM EST Respiratory Rate 16 11/15/2019 7:07 AM EST Oxygen Saturation 95% 11/15/2019 7:07 AM EST Inhaled Oxygen Concentration - - Weight 81.6 kg (180 lb) 11/12/2019 4:11 PM EST Height 162.6 cm (5' 4 ) 11/12/2019 4:11 PM EST Body Mass Index 30.9 11/12/2019 4:11 PM EST Plan of Treatment Health Maintenance Due Date Last Done Comments DEPRESSION SCREENING 1952 OSTEOPOROSIS SCREENING INITI AL (ONE-TIME) 2006 PNEUMOCOCCAL VACCINES (50+ years) (2 of 2 - PCV) 08/04/2010 08/04/2009 RSV VACCINE (1 - 1-dose 75+ series) 2016 ZOSTER VACCINES (3 of 3) 09/30/2020 020, 11/20/2009 COVID-19 VACCINE (2 - 2023-2 5 season) 2024 12/01/2020 Adult Td,Tdap Booster 05/30/2029 05/30/2019 , 07/22/2008 HEPATITIS A VACCINES Aged Out No long er eligible based on patient's age to complete this topic HIB VACCINES Aged Out No longer eligi ble based on patient's age to complete this topic MENINGOCOCCAL VACCINES (ACWY) Aged Out No longer eligible based on patient's age to complete this topic MENINGOCOCCAL VACCINES (B) Aged Out N o longer eligible based on patient's age to complete this topic Medical Devices Implanted Type Area Grain Distributor Device Identifier Shelf Expiration Date Model / Serial / Lot Knee Implant Component Size 7 Femoral Persona [place] Cement Cruciate Retaining Narrow Right - [id number] Implanted:Qty: 1 on 11/12/2019 by Alistair Gan MD at [facility] STANDARD Right: Knee SHWETA / DIV OF [employer] 09/11/2029 [id number] / / [id number] Cement Bone [place] R High Viscosity 1x40g Cs/20ea - [id number] Implanted:Qty: 2 on 11/12/2019 by Alistair Gan MD at [facility] Right: Knee LE [employer]OTE 10/12/2022 [id number] / / [id number] Knee Patella 32x8.5mm Persona All Polyethylene Cemented Conventional - [id number] Implanted:Qty: 1 on 11/12/2019 by Alistair Gan MD at [facility] Right: Knee SHWETA / DIV [employer] 10/12/2027 [id number] / / [id number] Persona Vivacet E Mc 10mm Right Articular Surface Implanted:Qty: 1 on 11/12/2019 by Alistair Gan MD at [facility] Right: Knee 07/12/2024 / / [id number] Knee Implant 5deg Component Tibial Persona Titanium Stemmed Cemented Rt Size D - [id number] Implanted:Qty: 1 on 11/12/2019 by Alistair Gan MD at [facility] Right: Knee SHWETA / DIV OF [employer] 08/11/2029 [id number] / / [id number] Insurance MEDICARE HMO BLUE REPLACEMENT [facility] MEDICARE HMO BLUE REPLACEMENT [facility] MEDICARE HMO BLUE REPLACEMENT [facility] MEDICARE HMO BLUE REPLACEMENT [facility] MEDICARE HMO BLUE REPLACEMENT Advance Directives For more information, please contact: [phone] (9AM - 5PM [facility], Tuesday-Tuesday) Documents on File Type Date Recorded Patient Roller Setter Expl anation Healthcare Proxy 11/13/2019 * Full Code (Presumed) (Latest Code Status on File) Date Activated Date Inactivated Comments 11/12/2019 1:58 PM 11/15/2019 1:51 PM * Full Code (Presumed) Date Activated Date Inactivated Comments 11/12/2019 9:18 AM 11/12/2019 1:58 PM Care Teams Lapel Baster Relationship Specialty Start Date End Date Maine Vincent MD [address] [place] [address] PCP - General Internal Medicine 01/22/19 Additional Source Comments The information contained in this document represents components of the legal health record. It is not the complete legal health record.[facility]
--- OUTSIDE RECORDS SUMMARY | 2025-04-05 12:38 | XMS_ITS | Encounter Summary ---
Author Organization [facility] Address [address] [place] [address] Care Team Providers Care Bobbin Washer Name Role Phone Ghulam Acevedo MD Primary Care Provider [phone] Reason for Visit * Reason Onset Date Comments faxed order 03/11/2025 [facility] [employer] home alth order [id number] Encounter Details Date Type Department Care Team ([facility] st Contact Info) Description 03/11/2025 Telephone Adult Medicine [address] [phone] Ghulam Acevedo MD [address] [place] [phone] faxed order ([facility] [employer] home health order [id number]) Social History Tobacco Use Types Packs/Day Years [...] 11:46 AM EDT [facility] home health order [id number] received please sign and fax to [phone] documented in this encounter Plan of Treatment Upcoming Encounters Date Type Department Care Team (Late st Contact Info) Description 04/17/2025 11:30 AM EDT Clinical Support [facility] [address] [place] [address] 05/23/2025 11:30 AM EDT Office Visit Adult Medicine [address] [address] Ghulam Acevedo MD [address] [place] [id number] 07/22/2025 11:00 AM EST Office Visit [facility] Hematology Oncology [address] [place] [address] Elo Onofre MD [address] [place] [address] documented as of this encounter Goals Goal Patient Goal Type Associated Problems Recent Progress Patient-Stated? Author Decrease Wound Volume by X% by date (in notes) Care Plan Impaired Tissue On track( 025 10:00 AM EDT) Calista Vidal RN Patient and Caregiver Understand Wound Care Education Care Plan Impaired Tissue On track( 025 10:00 AM EDT) Calista Vidal RN Wound volume breakdown [...] to ulceration/compr omised skin integrity. No Calista Mcmaahn RN documented as of this encounter Visit [...] documented as of this encounter Care Teams Bobbin Washer Relationship Specialty Start Date End Date Ghulam Acevedo MD [address] [place] [phone] PCP - General Internal Medicine 05/27/21 documented as of this encounter
--- OUTSIDE RECORDS SUMMARY | 2025-04-05 12:38 | XMS_ITS | Clinical Summary ---
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
--- OUTSIDE RECORDS SUMMARY | 2025-04-05 12:38 | XMS_ITS | Clinical Summary ---
Author Organization [facility] Address [address] [facility] [place] [address] Care Team Providers Care Hand Grinder Name Role Phone Unavailable Primary Care Provider [...] Adults 18 yrs or above (or HM Modifier)([facility]) 1958 SDOH Screening Reminder: Annika hameed for all adults ([facility]) 1958 Tobacco Smoking Cessation: i n Adults excluding Women: Behavioral and Pharmacotherapy Interventions ([facility]) 1958 DTaP/Tdap/Td Vaccines ([facility]) (1 - Tdap) 1960 Pneumococcal Vaccination Scr eening: Patients 50+ yrs of age ([facility]) (1 of 1 - PCV) 1991 Zoster/Shingles Vaccine Seri es Screening: Adults aged 18+ yrs (or HM Modifiers)([facility]) (1 of 2) 1991 Osteoporosis Screening to Pr event Fractures: Women aged 65 years+ ([facility]) 2006 RSV Vaccines (1 - 1-dose 75+ series) 2016 COVID-19 Vaccine Screening: Initial Series and Booster Status ([facility]) ( - 2023- season) 2024 Flu Vaccination: Ages 65+: Y early High Dose Recommended (or Modifier)([facility]) 04/12/2025 Medical Devices Not on file Insurance ([place]) [address] [place], [place] [address] [facility]
--- OUTSIDE RECORDS SUMMARY | 2025-04-05 12:38 | XMS_ITS | Data Portability ---
Author Organization [facility] Ellison s, [address] Address [address] [place] [address] Assessment No assessment recorded. Plan of Treatment Reminders Order Date Submit Date Provider Last Modified By Organization Details Last Modified Time Details Appointments None recorded. Lab None recorded. Referral None recorded. Procedures None recorded. Surgeries None recorded. Imaging None recorded. Medication Orders ciprofloxac in 0.3 % eye drops 2023 024 [facility] #[id number], [address] [place] [address], [address], 4 15:32:48 tobramycin 0.3 % eye drops 2023 024 [facility][id number], [address] [place], [address], 4 11:50:12 Patient TargetsNo targets recorded. Patient InstructionsNo instructions recorded. Reason for Referral None Reported. Problems Name Problem SNOMED Code Status Onset Date Resolution Date Notes Provider Name and Address Organization Details Recorded Time Hyperten sive disorder 81658939 Active 2023 Ly stover PA - [facility] 4 11:29:12 Transien t cerebral ischemia 499493081 Completed 202303/31/2024 Removal Reason: in past Ly stover PA - [facility] 4 11:30:50 Acute conjunct ivitis of bilatera l eyes 61364540897 9104 Active 2023 Carlee Dejesus NP [address] [place], [id number] , [place] - [facility] 4 15:32:05 Problem [...] Vitals Date Recorded Body height Body temperature Pain severity - 0-10 verbal numeric rating [Score] - Reported Respiratory rate Heart rate Oxygen saturation Oxygen saturation in Arterial blood by Pulse oximetry Body mass index (BMI) Body weight Systolic And Diastolic Provider Name and Address Organization Details Last Updated DateTime 4 157.48 cm 97.1 [degF] 4 17 /min 65 /min 97 % 97 % 25.2 kg/m2 26795.7 5 g 123/75 mm[Hg] Ly Savage PA - [facility] 4 11:34:34 Date Recorded Body height Body mass index (BMI) Body weight Oxygen saturation Oxygen saturation in Arterial blood by Pulse oximetry Heart rate Respiratory rate Body temperature Systolic And Diastolic Provider Name and Address Organization Details Last Updated DateTime 4 157.48 cm 25.2 kg/m2 01159.7 5 g 96 % 96 % 73 /min 18 /min 97.8 [degF] 122/65 mm[Hg] Geovanna Dumont PA - [facility] 4 15:03:30 Social History Question Answer Notes LastModified by AssertID Details LastModified Time Tobacco Smoking Status Never Smoker Ly stover PA - [facility] 03/31/2024 11:29:49 Have You Had A Flu Shot This Season? No Information not available 03/31/2024 If No, Would You Like A Flu Shot Today? No Information not available 03/31/2024 Are You Passively Exposed To Smoke? No Information not available 03/31/2024 Have You Recently Traveled Abroad? No Information not available 03/31/2024 Sex: Unknown Functional Status Question Answer Note LastModified by AssertID Details LastModified Time Do you use any illicit or recreational drugs? No Information not available 03/31/2024 Do you or have you ever used any other forms of tobacco or nicotine? No Information not available 03/31/2024 What is your level of alcohol consumption? None Information not available 03/31/2024 Are you currently employed? No Information not available 03/31/2024 Mental Status None recorded. Family History Relationship Description Onset Age of this Age Resolved Age Notes LastModified by Organization Details LastModified Time Father No current problems or disability Not available 03/13 11:29:17 Mother No current problems or disability Not available 03/13 11:29:17 Medical History No medical history recorded. Gynecological History Statement/Question Response Is there any chance of ? No LMP N/A Obstetrics History GPAL:G 0 P 0 0 0 0 Past Encounters Encounter ID Performer Location Encounter Start Date Encounter Closed Date Diagnosis/Indication Diagnosis SNOMED-CT Code Diagnosis ICD10 Code Diagnosis Note [id number] [address] [facility] [address] [place] [address] 07/11/2017 15:53:01 07/11/2017 16:57:46 [id number] [facility] [address] [place] [address] 03/31/2024 11:15:13 03/31/2024 11:50:58 Internal hordeolum of left lower eyelid 8585740445 08971 H00.025 Based on your presentati on and exam - you are being diagnosed with a Stye and Blephariti s You are being prescribed an antibiotic eye drop to treat the infection that has started from the stye This is a clogged gland in the eyelid. This will resolve over time. The following are my recommenda tions to help with your symptoms and this diagnosis: 1. Do not rub your eyes this can cause it to spread or damage the cornea of your eye.2. Do not wear contacts for at least 1 week if you have contacts.4 . No makeup5. You can take Ibuprofen or Tylenol for discomfort if you are not allergic to them.6. If you get lubricatin g eye drops and put them in the refrigerat or - this can help with itching and discomfort .7. Get an old sock and fill it with a cup of rice - put it in the microwave for a few second and apply it to the eyelid. Do this as frequently as possible - but make sure you don't make it too hot because it could cause a burn if it is too hot - you want it to just be warm.8. Get Baby Wash/Soap and clean eyelashes with a Q-tip everyday. This will help with the itching and irritation . You should be seen again if you develop any of the following symptoms1. Eye pain or pressure behind the eye.2. Redness or significan t swelling of the eyelid or around the eye3. Headache4. Fever > 100.55. No improvemen t in current symptoms in the next 1 week.6. Increased swelling of the eye lid that lasts longer than 2 weeks. Thank you for using [facility] today, please feel free to contact us with any questions or concerns. [id number] [place] [address] [facility] [address] [place] [address] 04/07/2024 14:08:17 04/07/2024 15:40:17 Acute conjunctivitis of bilateral eyes [id number] 03545 H10.33 Based on your presentati on and exam, you are diagnosed with Conjunctiv itis. I am going to cover you for a bacterial infection in the eye with antibiotic eye drops. Sometimes these symptoms can be caused by a virus or allergies. Viral infections with spontaneou sly resolve after 7-10 days and do not require treatment. If it is an allergy cause sometime oral allergy medication s will help with these symptoms or a allergy eye drop that can be purchased OTC. The following are my recommenda tions to help with your symptoms and this diagnosis: 1. Do not rub your eyes this can cause it to spread or damage the cornea of your eye.2. Wash surfaces such as cell phones, remotes, door knob frequently , because this is how it is transmitte d to others.3. Do not wear contacts for at least 1 week if you have contacts.4 . No makeup5. You can take Ibuprofen or Tylenol for discomfort if you are not allergic to them.6. If you get lubricatin g eye drops and put them in the refrigerat or - this can help with itching and discomfort . You should be seen again if you develop any of the following symptoms1. Eye pain or pressure behind the eye.2. Redness or significan t swelling of the eyelid or around the eye3. Headache4. Fever > 100.55. No improvemen t in current symptoms in the next 1 week. Thank you for using [facility] today, please feel free to contact us with any questions or concerns. Health Concerns Section Related Observation LastModified by Organization Detai ls LastModified Time None Recorded Concern Status LastModified by Organization Details LastModified Time None Recorded Advance Directives Directive None Recorded Payers Insurance Date Sequence Insurance Name Policy Number Policy Mcnamara Covered Member ID Mcnamara Member ID Guarantor Name 04/07/2024 2 [employer] () Bella H Nicoli [id number] Bella H Nicoli 05/29/2024 2 () Bella H Nicoli [id number] Bella H Nicoli 05/29/2024 2 FOR LIFE ( - MEDICARE SUPPLEMENT) Bella H Nicoli [id number] Bella H Nicoli 05/29/2024 1 [facility]: MEDICARE HMO BLUE (MEDICARE REPLACEMENT HMO) [id number] Bella H Nicoli [id number] Bella H Nicoli Notes Date Note Type Note Provider Name and Address Organization Details Recorded Time 03/31/2024 text/html 83 y/o female here with L eye discomfort and bumps to the lower lid for a few days, also with irritation to the left eye. R eye is irritated as well. Pharmacist told her to use some lubricating drops which aren't helping much GERARD Green [address] [place], [address], [place] [employer] [facility] 03/31/2024 11:53:18 04/07/2024 text/html Eye problemsRepo rted by PatientHPIFor eye symptoms, patient reportsrednessbut reportsno sensitivity to light,no pain in the eyes, andno blurred vision. For source of patient information, patient reportsinformation obtained from patientandpatient arrived at urgent care ambulatory. For location, patient reportsbilateral. For severity, patient reportsmoderate. For whit alleviating factors, patient reportsnothing helps. F/U eye irritation . was treated with tobramycin which she states is not working and causing her eyes to burn . Carlee Dejesus NP [address] [place], [address], [place] - [facility] 05/04/2024 11:34:57 OBGyn Episode No OBEpisode recorded.
--- OUTSIDE RECORDS SUMMARY | 2025-05-09 20:00 | XMS_ITS | Clinical Summary ---
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 Active 03-06 00:00: 00 NON-PRS 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 EXPOSED Active 03-06 00:00: 00 SPINAL STENOSIS, LUMBAR REGION WITH NEUROGENIC CLAUDICATION Active 09-12 00:00: 00 ESSENTIAL (PRIMARY) HYPERTENSION Active 09-12 00:00: 00 SPONDYLOSIS W/O MYELOPATHY OR RADICULOPATH Y, LUMBAR REGION Active 09-12 00:00: 00 POLYNEUROPAT HY, UNSPECIFIED Active 09-12 00:00: 00 OTH DISRD OF BONE DENSITY AND STRUCTURE, UNSPECIFIED SITE Active 09-12 00:00: 00 MILD INTERMITTENT ASTHMA, UNCOMPLICATE D Active 09-12 00:00: 00 POLYMYALGIA RHEUMATICA Active 09-12 00:00: 00 SPONDYLOSIS W/O MYELOPATHY OR RADICULOPATH Y, CERVICAL REGION Active 09-12 00:00: 00 PERSONAL HISTORY OF MALIGNANT NEOPLASM OF BREAST Active 09-12 00:00: 00 PREDIABETES Active 09-12 00:00: 00 PRESENCE OF RIGHT ARTIFICIAL KNEE JOINT Active 09-12 00:00: 00 Allergies, Adverse Reactions, Alerts Allergy Name Allergy Type Status Severity Reaction(s) Onset Date Inactive Date Treating Clinician Comments AMOXICILLI N......... .......... ..... Propensity to adverse reactions Active 2025-01 11:26:2 0 LATEX ANYTHING Propensity to adverse reactions Active 2025-01 11:26:3 1 SULFAMETHO XAZOLE-TRI METHOPRIM. Propensity to adverse reactions Active 2025-01 11:26:5 2 ADHESIVE Propensity to adverse reactions Active 2025-01 11:27:0 3 Medications Ordered Medication Name Filled Medication Name Start Date Stop Date Current Medication? Ordering Clinician Indication Dosage Frequency Signature (SIG) Comments Components tramadol 50 mg tablet 01-03 00:00: 00 Yes [id number] PAIN Per instruc tions AT BEDTIME NEEDED MAX DAILY Per instructio ns AT BEDTIME NEEDED MAX DAILY (route: oral) Med Classific ation: Analgesic , Anti-infl ammatory or Antipyret ic Santyl 250 unit/gram topical ointment 01-01 00:00: 00 01-11 00:00 :00 No [id number] Per instruc tions Per instructio ns (route: topical) Med Classific ation: Dermatolo gical cephalexin 500 mg capsule 01-08 00:00: 00 01-14 23:59 :00 No [id number] CELLULITIS Per instruc tions 4 TIMES A DAY FOR 7 DAYS Per instructio ns 4 TIMES A DAY FOR 7 DAYS (route: oral) Med Classific ation: Anti-Infe ctive Agents doxycycline hyclate 100 mg capsule 12-28 00:00: 00 01-11 00:00 :00 No [id number] Per instruc tions TWICE A DAY FOR 7 DAYS Per instructio ns TWICE A DAY FOR 7 DAYS (route: oral) Med Classific ation: Anti-Infe ctive Agents Vitamin C 500 mg tablet 12-28 00:00: 00 Yes [id number] SUPPLEMENT Per instruc tions TWICE A DAY Per instructio ns TWICE A DAY (route: oral) Med Classific ation: Electroly te Balance-N utritiona l Products zinc sulfate 50 mg zinc (220 mg) capsule 12-28 00:00: 00 Yes [id number] SUPPLEMENT Per instruc tions EVERY DAY Per instructio ns EVERY DAY (route: oral) Med Classific ation: Electroly te Balance-N utritiona l Products clindamycin HCl 300 mg capsule 11 00:00: 00 01-11 00:00 :00 No [id number] Per instruc tions 3 TIMES A DAY FOR 7 DAYS Per instructio ns 3 TIMES A DAY FOR 7 DAYS (route: oral) Med Classific ation: Anti-Infe ctive Agents levofloxaci n 750 mg tablet 12-20 00:00: 00 01-11 00:00 :00 No [id number] Per instruc tions EVERY 24 HOURS FOR 7 DAYS Per instructio ns EVERY 24 HOURS FOR 7 DAYS (route: oral) Med Classific ation: Anti-Infe ctive Agents mupirocin 2 % topical ointment 12-20 00:00: 00 01-11 00:00 :00 No [id number] Per instruc tions 3 TIMES A DAY Per instructio ns 3 TIMES A DAY (route: topical) Med Classific ation: Dermatolo gical doxycycline hyclate 100 mg capsule 12-12 00:00: 00 01-11 00:00 :00 No [id number] Unavailable Per instruc tions TWICE DAILY WITH FULL GLASS OF WATER FOR 7 DAYS Per instructio ns TWICE DAILY WITH FULL GLASS OF WATER FOR 7 DAYS (route: oral) Med Classific ation: Anti-Infe ctive Agents acetaminoph en 500 mg tablet 01-11 00:00: 00 Yes [id number] PAIN 2 tablet 3 TIMES DAILY 2 tablet 3 TIMES DAILY (route: oral) Med Classific ation: Analgesic , Anti-infl ammatory or Antipyret ic aspirin 81 mg tablet,vickey yed release 01-11 00:00: 00 Yes [id number] HEART HEALTH 1 tablet DAILY 1 tablet DAILY (route: oral) Med Classific ation: Hematolog ical Agents calcium 500 mg (as calcium carbonate 1,250 mg) chewable tablet 01-11 00:00: 00 Yes [id number] SUPPLEMENT 1 tablet DAILY 1 tablet DAILY (route: oral) Med Classific ation: Electroly te Balance-N utritiona l Products lisinopril 40 mg tablet 01-11 00:00: 00 Yes [id number] HTN 1 tablet DAILY 1 tablet DAILY (route: oral) Med Classific ation: Cardiovas cular Therapy Agents [place] 3-6-9 1,200 mg capsule 01-11 00:00: 00 Yes [id number] SUPPLEMENT 1 capsule DAILY 1 capsule DAILY (route: oral) Med Classific ation: Cardiovas cular Therapy Agents solifenacin 5 mg tablet 01-11 00:00: 00 Yes [id number] OVERACTIVE BLADDER 1 tablet DAILY 1 tablet DAILY (route: oral) Med Classific ation: Genitouri nary Therapy Vitamin D3 25 mcg (1,000 unit) capsule 01-11 00:00: 00 Yes [id number] SUPPLEMENT 1 capsule DAILY 1 capsule DAILY (route: oral) Med Classific ation: Electroly te Balance-N utritiona l Products Cipro 500 mg tablet 02-03 00:00: 00 02-11 23:59 :00 No [id number] WOUND INFECTION 1 tablet 2 TIMES DAILY 1 tablet 2 TIMES DAILY (route: oral) Med Classific ation: Anti-Infe ctive Agents acetaminoph en 300 mg-codeine 30 mg tablet 03-04 00:00: 00 Yes [id number] PAIN 1 tablet EVERY 6 HOURS 1 tablet EVERY 6 HOURS (route: oral) Med Classific ation: Analgesic , Anti-infl ammatory or Antipyret ic Vital Signs Vital Name Observation Time Observation Value Commen ts Temperature 2025-04-01 08:47:00.000 97.1 [degF] Temperature 2025-03-29 15:41:00.000 97.2 [degF] Temperature 2025-03-28 06:13:00.000 97.3 [degF] Temperature 2025-03-21 07:31:00.000 98.2 [degF] Temperature 2025-03-19 06:27:00.000 98.1 [degF] Temperature 2025-03-13 10:25:00.000 97 [degF] Pulse 2025-04-01 08:47:00.000 78 /min Pulse 2025-03-29 15:41:00.000 80 /min Pulse 2025-03-28 06:13:00.000 78 /min Pulse 2025-03-21 07:31:00.000 70 /min Pulse 2025-03-19 06:27:00.000 70 /min Pulse 2025-03-13 10:25:00.000 93 /min O2 Saturation (%) 2025-04-01 08:48:00.000 98 % O2 Saturation (%) 2025-03-29 15:41:00.000 97 % O2 Saturation (%) 2025-03-28 06:13:00.000 98 % O2 Saturation (%) 2025-03-21 07:32:00.000 97.3 % O2 Saturation (%) 2025-03-19 06:27:00.000 97 % O2 Saturation (%) 2025-03-13 10:25:00.000 96 % Respirations 2025-04-01 08:47:00.000 18 /min Respirations 2025-03-29 15:41:00.000 18 /min Respirations 2025-03-28 06:13:00.000 18 /min Respirations 2025-03-21 07:31:00.000 18 /min Respirations 2025-03-19 06:27:00.000 18 /min Respirations 2025-03-13 10:25:00.000 18 /min Systolic Blood Pressure 2025-04-01 08:47:00.000 136 mm [Hg] Systolic Blood Pressure 2025-03-29 15:41:00.000 128 mm [Hg] Systolic Blood Pressure 2025-03-28 06:13:00.000 132 mm [Hg] Systolic Blood Pressure 2025-03-21 07:31:00.000 118 mm [Hg] Systolic Blood Pressure 2025-03-19 06:27:00.000 142 mm [Hg] Systolic Blood Pressure 2025-03-13 10:25:00.000 122 mm [Hg] Diastolic Blood Pressure 2025-04-01 08:47:00.000 71 mm [Hg] Diastolic Blood Pressure 2025-03-29 15:41:00.000 64 mm [Hg] Diastolic Blood Pressure 2025-03-28 06:13:00.000 74 mm [Hg] Diastolic Blood Pressure 2025-03-21 07:31:00.000 72 mm [Hg] Diastolic Blood Pressure 2025-03-19 06:27:00.000 74 mm [Hg] Diastolic Blood Pressure 2025-03-13 10:25:00.000 64 mm [Hg] Plan of Treatment Planned Activity Planned Date Details Comments Future Scheduled Test RN TO OBSE RVE, ASSESS, EVALUATE, AND DEVELOP AN INDIVIDUALIZED PLAN OF CARE. AGENCY MAY ACCEPT ORDERS FROM CONSULTING PHYSICIANS. RN TO OBSERVE AND ASSESS, DATA COMMUNICATIONS ANALYST/SHOOK SPLICER TO OBSERVE FOR RISK FOR FALLS AND INSTRUCT IN FALL PREVENTION, HOME SAFETY, MEDICATION MANAGEMENT, INFECTION PREVENTION, AND NUTRITION MANAGEMENT. RN/DATA COMMUNICATIONS ANALYST/SHOOK SPLICER NURSE MAY PERFORM O2 SATURATION LEVEL ON ADMISSION AND FOR RN TO ASSESS/DATA COMMUNICATIONS ANALYST TO OBSERVE PATIENT, WITH NOTIFICATION TO THE PHYSICIAN IF SATURATION IS 90% IN THE ABSENCE OF MORE SPECIFIC PARAMETERS FROM THE PHYSICIAN. AGENCY MAY PERFORM A RESUMPTION OF CARE VISIT FOLLOWING ANY HOSPITAL ADMISSION. RN/DATA COMMUNICATIONS ANALYST/SHOOK SPLICER TO MONITOR CO-MORBID CONDITIONS LISTED ON THE PLAN OF CARE AND ANY NEW CONDITIONS THAT PRESENT THEMSELVES DURING THIS EPISODE TO IDENTIFY CHANGES AND INTERVENE TO MINIMIZE COMPLICATIONS. [code = RN TO OBSERVE, ASSESS, EVALUATE, AND DEVELOP AN INDIVIDUALIZED PLAN OF CARE. AGENCY MAY ACCEPT ORDERS FROM CONSULTING PHYSICIANS. RN TO OBSERVE AND ASSESS, DATA COMMUNICATIONS ANALYST/SHOOK SPLICER TO OBSERVE FOR RISK FOR FALLS AND INSTRUCT IN FALL PREVENTION, HOME SAFETY, MEDICATION MANAGEMENT, INFECTION PREVENTION, AND NUTRITION MANAGEMENT. RN/DATA COMMUNICATIONS ANALYST/SHOOK SPLICER NURSE MAY PERFORM O2 SATURATION LEVEL ON ADMISSION AND FOR RN TO ASSESS/DATA COMMUNICATIONS ANALYST TO OBSERVE PATIENT, WITH NOTIFICATION TO THE PHYSICIAN IF SATURATION IS 90% IN THE ABSENCE OF MORE SPECIFIC PARAMETERS FROM THE PHYSICIAN. AGENCY MAY PERFORM A RESUMPTION OF CARE VISIT FOLLOWING ANY HOSPITAL ADMISSION. RN/DATA COMMUNICATIONS ANALYST/SHOOK SPLICER TO MONITOR CO-MORBID CONDITIONS LISTED ON THE PLAN OF CARE AND ANY NEW CONDITIONS THAT PRESENT THEMSELVES DURING THIS EPISODE TO IDENTIFY CHANGES AND INTERVENE TO MINIMIZE COMPLICATIONS.] Future Scheduled Test RISK FOR H OSPITALIZATION; RN TO ASSESS/TEACH, SHOOK SPLICER/DATA COMMUNICATIONS ANALYST TO OBSERVE/TEACH PATIENT/CAREGIVER ON RISK FOR HOSPITALIZATION/EMERGENCY ROOM VISITS, TEACH SIGNS AND SYMPTOMS THAT PUT PATIENT AT RISK, WHEN TO NOTIFY NURSE/PHYSICIAN OF COMPLICATIONS/DECLINE, AND WHEN TO CALL 911. [code = RISK FOR HOSPITALIZATION; RN TO ASSESS/TEACH, SHOOK SPLICER/DATA COMMUNICATIONS ANALYST TO OBSERVE/TEACH PATIENT/CAREGIVER ON RISK FOR HOSPITALIZATION/EMERGENCY ROOM VISITS, TEACH SIGNS AND SYMPTOMS THAT PUT PATIENT AT RISK, WHEN TO NOTIFY NURSE/PHYSICIAN OF COMPLICATIONS/DECLINE, AND WHEN TO CALL 911.] Future Scheduled Test MEDICATION MANAGEMENT; RN/DATA COMMUNICATIONS ANALYST/SHOOK SPLICER TO REVIEW MEDICATIONS FOR INTERACTIONS, EFFECTIVENESS OF DRUG THERAPY, AND SIGNS/SYMPTOMS OF ADVERSE REACTIONS. MAY INSTRUCT AND REINFORCE MEDICATION TEACHING RELATED TO THE USE OF MEDICATIONS, DOSAGE, FREQUENCY, PURPOSE, SIDE EFFECTS, AND TO REPORT COMPLICATIONS. [code = MEDICATION MANAGEMENT; RN/DATA COMMUNICATIONS ANALYST/SHOOK SPLICER TO REVIEW MEDICATIONS FOR INTERACTIONS, EFFECTIVENESS OF DRUG THERAPY, AND SIGNS/SYMPTOMS OF ADVERSE REACTIONS. MAY INSTRUCT AND REINFORCE MEDICATION TEACHING RELATED TO THE USE OF MEDICATIONS, DOSAGE, FREQUENCY, PURPOSE, SIDE EFFECTS, AND TO REPORT COMPLICATIONS.] Future Scheduled Test RN/DATA COMMUNICATIONS ANALYST/SHOOK SPLICER TO PERFORM/TEACH VENOUS STASIS ULCER CARE TO LEFT MEDIAL LOWER LEG AREA: CLEANSE WITH WOUND CLEANSER, PAT DRY. APPLY ZINC PERIWOUND, CUT TO FIT AND MOISTEN AND SQUEEZE OUT HYDRAFERA BLUE, PLACE ON WOUND. COVER WITH 4 4 GAUZE. WRAP WITH ROLL GAUZE . SECURE WITH TAPE. APPLY TUBIGRIP. NURSING TO CHANGE DRESSING TWICE A WEEK AND PATIENT / WOUND CLINIC TO CHANGE ONCE A WEEK AND FOR DISLODGEMENT. [code = RN/DATA COMMUNICATIONS ANALYST/SHOOK SPLICER TO PERFORM/TEACH VENOUS STASIS ULCER CARE TO LEFT MEDIAL LOWER LEG AREA: CLEANSE WITH WOUND CLEANSER, PAT DRY. APPLY ZINC PERIWOUND, CUT TO FIT AND MOISTEN AND SQUEEZE OUT HYDRAFERA BLUE, PLACE ON WOUND. COVER WITH 4 4 GAUZE. WRAP WITH ROLL GAUZE . SECURE WITH TAPE. APPLY TUBIGRIP. NURSING TO CHANGE DRESSING TWICE A WEEK AND PATIENT / WOUND CLINIC TO CHANGE ONCE A WEEK AND FOR DISLODGEMENT. ] Future Scheduled Test PAIN MANAG EMENT; RN TO ASSESS AND TEACH, SHOOK SPLICER/DATA COMMUNICATIONS ANALYST TO OBSERVE AND TEACH AND PROVIDE EDUCATION ON PAIN MANAGEMENT TECHNIQUES. [code = PAIN MANAGEMENT; RN TO ASSESS AND TEACH, SHOOK SPLICER/DATA COMMUNICATIONS ANALYST TO OBSERVE AND TEACH AND PROVIDE EDUCATION ON PAIN MANAGEMENT TECHNIQUES.] Future Scheduled Test FALL REDUC TION MANAGEMENT; RN TO ASSESS AND OBSERVE, DATA COMMUNICATIONS ANALYST/SHOOK SPLICER TO OBSERVE FALL RISK FACTORS AND EDUCATE PATIENT/CAREGIVER ON STRATEGIES TO MINIMIZE THE RISK OF FALLING. [code = FALL REDUCTION MANAGEMENT; RN TO ASSESS AND OBSERVE, DATA COMMUNICATIONS ANALYST/SHOOK SPLICER TO OBSERVE FALL RISK FACTORS AND EDUCATE PATIENT/CAREGIVER ON STRATEGIES TO MINIMIZE THE RISK OF FALLING. ] Future Scheduled Test RECERTIFIC ATION FOR ONGOING WOUND CARE. PATIENT HAS WEEKLY WOUND CLINIC APPTS. HER WOUND IS IMPROVING PER WOUND CLINIC. WOUND IS FREE OF YELLOW SLOUGH AND MUCH SHALLOWER. PATIENT STATES THE CLINIC IS SENDING HER TO HAVE A NERVE CUT TO PROMOTE WOUND HEALING. AFTER MUCH DISCUSSION, IT SOUNDS IF PATIENT WILL BE HAVING AN ANGIOGRAM OF LEFT LOWER LEG TO RE-ESTABLISH BLOOD FLOW TO LEFT LOWER LEG. NO DATE HAS BEEN GIVEN. I'M WAITING FOR A CALL FROM THEM. PATIENT EDUCATED TO INCREASE FLUID AND PROTEIN INTAKE DAILY TO PROMOTE TISSUE REBUILDING. I KNOW BUT ITS HARD TO EAT. PATIENT ENCOURAGED TO TRY 4-6 SMALL PROTEIN RICH SNACKS/MEALS, EXAMPLES GIVEN, RATHER THAN 3 BIG MEALS. PATIENT AGREED TO TRY. DR. MEDRANO CALLED, SPOKE TO YESSI, RECERTIFICATION DECISION FOR CONTINUED WOUND CARE DISCUSSED. DOCTOR IS IN AGREEMENT WITH RECERTIFICATION. PATIENT IS HOMEBOUND DUE TO IMPAIRED MOBILITY AND ENDURANCE FROM LEFT LEG WOUND. PATIENT REQUIRES AN ASSIST OF ANOTHER TO ENSURE SAFETY WHEN WALKING OUTSIDE HOME. [code = RECERTIFICATION FOR ONGOING WOUND CARE. PATIENT HAS WEEKLY WOUND CLINIC APPTS. HER WOUND IS IMPROVING PER WOUND CLINIC. WOUND IS FREE OF YELLOW SLOUGH AND MUCH SHALLOWER. PATIENT STATES THE CLINIC IS SENDING HER TO HAVE A NERVE CUT TO PROMOTE WOUND HEALING. AFTER MUCH DISCUSSION, IT SOUNDS IF PATIENT WILL BE HAVING AN ANGIOGRAM OF LEFT LOWER LEG TO RE-ESTABLISH BLOOD FLOW TO LEFT LOWER LEG. NO DATE HAS BEEN GIVEN. I'M WAITING FOR A CALL FROM THEM. PATIENT EDUCATED TO INCREASE FLUID AND PROTEIN INTAKE DAILY TO PROMOTE TISSUE REBUILDING. I KNOW BUT ITS HARD TO EAT. PATIENT ENCOURAGED TO TRY 4-6 SMALL PROTEIN RICH SNACKS/MEALS, EXAMPLES GIVEN, RATHER THAN 3 BIG MEALS. PATIENT AGREED TO TRY. DR. MEDRANO CALLED, SPOKE TO YESSI, RECERTIFICATION DECISION FOR CONTINUED WOUND CARE DISCUSSED. DOCTOR IS IN AGREEMENT WITH RECERTIFICATION. PATIENT IS HOMEBOUND DUE TO IMPAIRED MOBILITY AND ENDURANCE FROM LEFT LEG WOUND. PATIENT REQUIRES AN ASSIST OF ANOTHER TO ENSURE SAFETY WHEN WALKING OUTSIDE HOME. ] Goal 2025-03-07 Patient Goal - TO HEAL Goal Patient Goal - TO HEAL Goal Provider Goal - A PLAN OF CARE WILL BE ESTABLISHED THAT MEETS THE PATIENTS NEEDS. PATIENT WILL DEMONSTRATE OXYGEN SATURATION WITHIN NORMAL LIMITS OR PATIENTS OPTIMAL LEVEL ESTABLISHED BY THE PHYSICIAN THROUGHOUT CARE. CHANGES TO CO-MORBID CONDITIONS AND ANY NEW CONDITIONS WILL BE IDENTIFIED AND REPORTED TO THE PHYSICIAN. Goal Provider Goal - PATIENT/CAREGIVER WILL VERBALIZE UNDERSTANDING OF SIGNS AND SYMPTOMS THAT PUT THE PATIENT AT RISK FOR HOSPITALIZATION /EMERGENCY ROOM VISITS, WHEN TO NOTIFY NURSE/PHYSICIAN OF COMPLICATIONS/DECLINE AND WHEN TO CALL 911. Goal Provider Goal - PATIENT/CAREGIVER TO VERBALIZE, AND CONSISTENTLY DEMONSTRATE EFFECTIVE, SAFE MANAGEMENT OF MEDICATION INCLUDING KNOWLEDGE OF EFFECTIVENESS, POTENTIAL SIDE EFFECTS AND DRUG REACTIONS AND WHEN TO CONTACT THE APPROPRIATE CARE PROVIDER. PATIENT/CAREGIVER WILL BE ABLE TO VERBALIZE UNDERSTANDING OF MEDICATION REGIMEN AND ACCURATELY TAKE MEDICATIONS PRESCRIBED WITHOUT ADVERSE EFFECTS BY 05/10/25. Goal Provider Goal - PATIENT / CAREGIVER WILL VERBALIZE UNDERSTANDING OF VENOUS STASIS ULCER INCLUDING BUT NOT LIMITED TO DEFINITION, SIGNS AND SYMPTOMS OF COMPLICATIONS AND PRESCRIBED TREATMENT REGIME BY 05/10/25. Goal Provider Goal - PATIENT / CAREGIVER WILL VERBALIZE / DEMONSTRATE UNDERSTANDING OF PAIN CONTROL MEASURES BY 05/10/25. Goal Provider Goal - PATIENT/CAREGIVER WILL VERBALIZE/DEMONSTRATE UNDERSTANDING OF FALL RISK FACTORS AND IMPLEMENT STRATEGIES TO MINIMIZE FALL RISK. PATIENT/CAREGIVER WILL VERBALIZE/DEMONSTRATE AN ABILITY TO ADHERE TO FALL REDUCTION SELF-MANAGEMENT AND LIFE-STYLE CHANGES BY END OF EPISODE. Encounters Start Date/Time End Date/Time Encounter Type Admission Type Attending [facility] Care Department Encounter ID Discharge Date Discharge Status Discharge Condition Discharge Reason Percent Goals Met 2025-03-12 00:00:00 2025-05-10 00:00:00 Outpatient KAYKAYRTYAYA [facility] [id number]
== END 2025-04-05 12:36 | disposition home or self-care (01) ==
LOC: HO.US 12:35
PROVIDERS: PCP Internal Medicine; Visit Provider Student in an Organized Health Care Education/Training Program
DX: Z13.89 Encounter for screening for other disorder (principal)

== ENCOUNTER 2025-04-10 10:43 | Outpatient (REF) | payer MEDICARE, OTHER, SELFPAY ==
--- OUTSIDE RECORDS SUMMARY | 2025-03-13 14:18 | XMS_ITS | Continuity of Care Document ---
Author Name [facility] Organization [facility] Care Team Providers Care Timber Skidder Name Role Phone [facility] Unavailable Unavailable Problems Problem Status Onset Date Classification Date Reported Comments Source Cellulitis, unspecified Active 12/25/2024 [facility] Essential (primary) hypertension Active 12/25/2024 [facility] Transient cerebral ischemic attack, unsp Active 12/25/2024 [facility] Personal history of other diseases of th Active 12/25/2024 [facility] Malignant neoplasm of unspecified site o Active 12/25/2024 [facility] Altered mental status, unspecified Active 01/18/2024 [facility] Cellulitis of unspecified part of limb Active [facility] Cutaneous abscess of left lower limb Active [facility] Medications Medication Details Route Status Patient Instructions Ordering Provider Order Date Source collagenase topical 250 units/g ointment 1 Applic, TOP, DAILY, # 30 gm, 0 Refill(s), [id number], 157.48, cm, 12/26/24 1:27:00 PDT, Height/Length (cm), 60.1, kg, 01/01/25 12:07:00 PDT, Dose calculation weight (kg) Active [place] 025 60 [facility] 1 inch iodoform packing material 1 inch iodoform packing material, See Instructions, Please dispense 1 container of 1 inch iodoform packing. Directions, change out packing daily., # 1 ea, 0 Refill(s), Maintenance, [facility]: [id number], Supply, 157.48, cm, 12/26/24 1:27:00 PDT, Height/Length (cm), 60.1, kg, 01/01/25 12:07:00 PDT, Dose calculation weight (kg) Active [place] 60 [facility] 1 inch iodoform dressing 1 inch iodoform dressing, See Instructions, Please dispense 1 container of 1 inch iodoform dressing. Instructions, change the packing every 24 hours., # 1 ea, 0 Refill(s), Maintenance[id number], 157.48, cm, 12/26/24 1:27:00 PDT, Height/Length (cm), 60.1, kg, 01/01/25 12:07:00 PDT, Dose calculation weight (kg) Active [place] 60 [facility] collagenase topical 250 units/g ointment 1 Applic, TOP, DAILY, # 30 gm, 0 Refill(s), Maintenance, [id number], 157.48, cm, 12/26/24 1:27:00 PDT, Height/Length (cm), 60.1, kg, 01/01/25 12:07:00 PDT, Dose calculation weight (kg) Active [place] 60 [facility] doxycycline hyclate 100 mg oral capsule = 1 Cap, ORAL, BID, X 7 Day(s), # 14 Cap, Indication= Skin/Soft tissue infxn, nonpurulent, 0 Refill(s), Acute, [id number], 157.48, cm, 12/26/24 1:27:00 PDT, Height/Length (cm), 65.4, kg, 12/26/24 1:27:00 PDT, Dose calculation weight (kg) Active [place] 60 [facility] Keflex 500 mg oral capsule = 1 Cap, ORAL, QID, X 7 Day(s), # 28 Cap, Indication= Skin/Soft tissue infxn, nonpurulent, 0 Refill(s), Acute, [facility]: [id number], 157.48, cm, 12/26/24 1:27:00 PDT, Height/Length (cm), 65.4, kg, 12/26/24 1:27:00 PDT, Dose calculation weight (kg) Active [place] 60 [facility] zinc sulfate 220 mg oral capsule = 1 Cap, ORAL, DAILY, # 30 Cap, 0 Refill(s), Maintenance, [id number], 157.48, cm, 12/26/24 1:27:00 PDT, Height/Length (cm), 65.4, kg, 12/26/24 1:27:00 PDT, Dose calculation weight (kg) Active [place] 60 [facility] Santyl 250 units/g topical ointment 1 Applic, TOP, DAILY, # 30 gm, 0 Refill(s), Acute, [id number], 157.48, cm, 12/26/24 1:27:00 PDT, Height/Length (cm), 65.4, kg, 12/26/24 1:27:00 PDT, Dose calculation weight (kg) Active [facility] Vitamin C 500 mg oral tablet = 1 Tab, ORAL, BID, # 60 Tab, 0 Refill(s), Maintenance, [id number], 157.48, cm, 12/26/24 1:27:00 PDT, Height/Length (cm), 65.4, kg, 12/26/24 1:27:00 PDT, Dose calculation weight (kg) Active [facility] solifenacin 5 mg oral tablet = 1 Tab, ORAL, QBedtime, 0 Refill(s), Maintenance Active [facility] 60 [facility] lisinopril 40 mg, ORAL, DAILY, 0 Refill(s), Maintenance Active [facility] 60 [facility] levoFLOXacin 750 mg oral tablet = 1 Tab, ORAL, Q24H, X 7 Day(s), # 7 Tab, Indication= Skin/Soft tissue infxn, nonpurulent, 0 Refill(s), Acute, [facility]: [id number], 157.5, cm, 01/19/24 1:08:00 PDT, Height/Length (cm), 56.8, kg, 12/20/24 11:24:00 PDT, Dose calculation weight (kg) Active [place] 60 [facility] mupirocin topical 2% ointment 1 Applic, TOP, TID, # 22 gm, 0 Refill(s), Maintenance, Pharmacy: [id number], 157.5, cm, 01/19/24 1:08:00 PDT, Height/Length (cm), 56.8, kg, 12/20/24 11:24:00 PDT, Dose calculation weight (kg) Active [place] 025 60 [facility] Keflex 500 mg oral capsule = 1 Cap, ORAL, Q8H, X 3 Day(s), # 9 Cap, Indication= UTI, complicated, 0 Refill(s), Acute, [facility]acy: [facility] [id number] [facility], 157.5, cm, 01/19/24 1:08:00 PDT, Height/Length (cm), 73.9, kg, 01/19/24 1:08:00 PDT, Dose calculation weight (kg) Active 024 60 [facility] aspirin 81 mg, ORAL, QMorning, 0 Refill(s), Maintenance Active [place] 024 60 [facility] Allergies, Adverse Reactions, Alerts Substance Category Reaction Severity Reaction type Status Date Reported Comments Source sulfa drugs Assertion Drug allergy Active 60 [facility] Contrast Dye Assertion Itching (finding) Drug allergy Active 60 [facility] Tape Assertion Eruption of skin (disorder) Drug allergy Active 60 [facility] statins Assertion Drug allergy Active 60 [facility] Results Order Name Results Value Reference Range Date Interpretation Comments Source AutoDiff* Auto Neutrophil Percent 86.7 % 49.4 - 72.6 12/28 H [facility] AutoDiff* Auto Neutrophil Absolute 15.4 K/uL 2.0 - 6.4 12/28 H [facility] AutoDiff* Auto Lymphocyte Percent 7.3 % 18.0 - 40.0 12/28 L [facility] AutoDiff* Auto Lymphocyte Absolute 1.3 K/uL 1.5 - 3.0 12/28 L [facility] AutoDiff* Auto Monocyte Percent 3.9 % 4.9 - 10.1 12/28 L [facility] AutoDiff* Auto Monocyte Absolute 0.7 K/uL 0.3 - 0.8 12/28 NA [facility] AutoDiff* Auto Eosinophil Percent 0.6 % 0.0 - 5.0 12/28 NA [facility] AutoDiff* Auto Eosinophil Absolute 0.1 K/uL 0.0 - 0.4 12/28 NA [facility] AutoDiff* Auto Basophil Percent 1.5 % 0.2 - 1.2 12/28 H [facility] AutoDiff* Auto Basophil Absolute 0.3 K/uL 0.0 - 0.1 12/28 H [facility] AutoDiff* Auto NRBC % 0 % 12/28 NA [facility] AutoDiff* Sex assigned at Female 12/28 [facility] CBC WBC 17.8 K/uL 3.7 - 10.5 12/28 H [facility] CBC RBC 5.79 M/uL 3.61 - 5.37 12/28 H [facility] CBC HGB 12.1 g/dL 11.2 - 15.8 12/28 [facility] CBC HCT 38.5 % 32.9 - 49.0 12/28 [facility] CBC MCV 66.5 fL 80.1 - 99.2 12/28 L [facility] CBC MCH 20.9 pg 25.8 - 33.5 12/28 L [facility] CBC MCHC 31.5 g/dL 31.0 - 37.0 12/28 NA [facility] CBC RDW 19.1 % 12.0 - 15.8 12/28 H [facility] CBC PLT 751 K/uL 139 - 422 12/28 H [facility] CBC MPV 8.40 fL 6.84 - 10.28 12/28 NA [facility] CBC Sex assigned at Female 12/28 [facility] CBC Manual Diff Y/N MANUAL DIFF 12/28 NA [facility] CMP Sodium Level 134 MMOL/L 135 - 145 12/28 L [facility] Potassium Level 4.9 MMOL/L 3.5 - 5.0 12/28 NA [facility] Chloride Level 102 MMOL/L 101 - 111 12/28 NA [facility] CO2/Carbon Dioxide 26 MMOL/L 24 - 32 12/28 NA [facility] Anion Gap 6.0 5.0 - 15.0 12/28 NA [facility] Glucose, Random 98 MG/DL - <=200 12/28 NA [facility] BUN 11 MG/DL 8 - 20 12/28 NA [facility] Creatinine 0.63 MG/DL 0.60 - 1.30 12/28 NA [facility] BUN/Creat Ratio 17.5 12.0 - 20.0 12/28 NA [facility] Osmolality, Calculated 268 mOsm/L 12/28 NA [facility] Calcium Level 8.4 MG/DL 8.4 - 10.2 12/28 NA [facility] Total Protein 5.4 g/dL 6.4 - 8.3 12/28 L [facility] Albumin Level 3.2 g/dL 3.2 - 5.5 12/28 NA [facility] Globulin Level 2.2 g/dL 1.5 - 3.5 12/28 NA [facility] A/G Ratio 1.5 1.1 - 2.2 12/28 NA [facility] CMP ALP 68 IU/L 30 - 115 12/28 NA [facility] CMP ALT 8 IU/L 5 - 36 12/28 NA [facility] CMP AST 14 IU/L 10 - 42 12/28 [facility] Bilirubin, Total 0.3 MG/DL 0.2 - 1.2 12/28 NA [facility] CMP eGFR 88 mL/min/1.7 3m2 12/28 NA This eGFR equation utilizes the 2020 CKD-EPI creatinine equation.Stag es GFRNone or slight 1 >90 ml/minMild 2 60-89 ml/minModerat e 3 30-59 ml/minSevere 4 15-29 ml/minApproac julia Failure 5 <15 ml/min [facility] CMP Sex assigned at Female 12/28 NA [facility] CRP CRP C-Reactive Protein 2.20 MG/DL 0.00 - 0.90 12/28 H [facility] CRP Sex assigned at Female 12/28 NA [facility] MDiff Bands % 2 % 0 - 10 12/28 NA [facility] MDiff Manual Neutrophil Percent 81.9 % 49.4 - 72.6 12/28 H [facility] MDiff Manual Neutrophil Absolute 14.9 K/uL 2.0 - 6.4 12/28 H [facility] MDiff Manual Lymphocyte Percent 5.7 % 18.0 - 40.0 12/28 L [facility] MDiff Manual Lymphocyte Absolute 1.0 K/uL 2.0 - 6.4 12/28 L [facility] MDiff Manual Monocyte Percent 4.8 % 4.9 - 10.1 12/28 L [facility] MDiff Manual Monocyte Absolute 0.9 K/uL 0.3 - 0.8 12/28 H [facility] MDiff Manual Eosinophil Percent 0.9 % 0.0 - 5.0 12/28 NA [facility] MDiff Manual Eosinophil Absolute 0.2 K/uL 0.0 - 0.4 12/28 NA [facility] MDiff Manual Basophil Percent 4.8 % 0.2 - 1.2 12/28 H [facility] MDiff Manual Basophil Absolute 0.9 K/uL 0.0 - 0.1 12/28 H [facility] MDiff Anisocytosis 1 None 12/28 * [facility] MD[facility] Microcytosis 1 None 12/28 * [facility] Macrocytosis 1 None 12/28 * [facility] MD[facility] Ovalocytes 1 None 12/28 * [facility] MD[facility] Giant Platelets 1 None 12/28 * [facility] MDiff Sex assigned at Female 12/28 NA [facility] Mg Magnesium Level 1.9 MG/DL 1.7 - 2.8 12/28 NA [facility] Mg Sex assigned at Female 12/28 NA [facility] PCT Procalcitonin Level 0.35 NG/ML - <=0.50 12/28 NA [facility] PCT Sex assigned at Female 12/28 NA [facility] Phos Phosphorus Level 3.9 MG/DL 2.5 - 4.5 12/28 NA [facility] Phos Sex assigned at Female 12/28 NA [facility] Prealb Prealbumin 17.00 MG/DL 18.00 - 38.00 12/28 L [facility] Prealb Sex assigned at Female 12/28 NA [facility] C Laura C Laura Final:No growth at 4 days. No anaerobic organisms isolatedSe x assigned at :Rodrigo le 12/27 [facility] C Aer C Aer Final:No growth at 4 days.GS:Fe w White Blood Cells No organisms seen.Sex assigned at :Rodrigo le 12/27 [facility] AutoDiff* Auto Neutrophil Percent 80.3 % 49.4 - 72.6 12/27 H [facility] AutoDiff* Auto Neutrophil Absolute 11.8 K/uL 2.0 - 6.4 12/27 H [facility] AutoDiff* Auto Lymphocyte Percent 9.2 % 18.0 - 40.0 12/27 L [facility] AutoDiff* Auto Lymphocyte Absolute 1.3 K/uL 1.5 - 3.0 12/27 L [facility] AutoDiff* Auto Monocyte Percent 5.3 % 4.9 - 10.1 12/27 NA [facility] AutoDiff* Auto Monocyte Absolute 0.8 K/uL 0.3 - 0.8 12/27 NA [facility] AutoDiff* Auto Eosinophil Percent 4.8 % 0.0 - 5.0 12/27 NA [facility] AutoDiff* Auto Eosinophil Absolute 0.7 K/uL 0.0 - 0.4 12/27 H [facility] AutoDiff* Auto Basophil Percent 0.4 % 0.2 - 1.2 12/27 NA [facility] AutoDiff* Auto Basophil Absolute 0.1 K/uL 0.0 - 0.1 12/27 NA [facility] AutoDiff* Auto NRBC % 0 % 12/27 NA [facility] AutoDiff* Sex assigned at Female 12/27 NA [facility] CBC WBC 14.6 K/uL 3.7 - 10.5 12/27 H [facility] CBC RBC 5.82 M/uL 3.61 - 5.37 12/27 H [facility] CBC HGB 12.0 g/dL 11.2 - 15.8 12/27 NA [facility] CBC HCT 39.0 % 32.9 - 49.0 12/27 NA [facility] CBC MCV 67.0 fL 80.1 - 99.2 12/27 L [facility] CBC MCH 20.7 pg 25.8 - 33.5 12/27 L [facility] CBC MCHC 30.8 g/dL 31.0 - 37.0 12/27 L [facility] CBC RDW 19.4 % 12.0 - 15.8 12/27 H [facility] CBC PLT 689 K/uL 139 - 422 12/27 H [facility] CBC MPV 8.20 fL 6.84 - 10.28 12/27 NA [facility] CBC Sex assigned at Female 12/27 NA [facility] Sodium Level 136 MMOL/L 135 - 145 12/27 NA [facility] Potassium Level 4.0 MMOL/L 3.5 - 5.0 12/27 NA [facility] CMP Chloride Level 102 MMOL/L 101 - 111 12/27 NA [facility] CMP CO2/Carbon Dioxide 25 MMOL/L 24 - 32 12/27 NA [facility] Anion Gap 9.0 5.0 - 15.0 12/27 NA [facility] Glucose, Random 142 MG/DL - <=200 12/27 NA [facility] CMP BUN 17 MG/DL 8 - 20 12/27 NA [facility] CMP Creatinine 0.60 MG/DL 0.60 - 1.30 12/27 NA [facility] BUN/Creat Ratio 28.3 12.0 - 20.0 12/27 H [facility] Osmolality, Calculated 276 mOsm/L 12/27 NA [facility] CMP Calcium Level 8.4 MG/DL 8.4 - 10.2 12/27 NA [facility] Total Protein 5.9 g/dL 6.4 - 8.3 12/27 L [facility] Albumin Level 3.3 g/dL 3.2 - 5.5 12/27 NA [facility] Globulin Level 2.6 g/dL 1.5 - 3.5 12/27 NA [facility] CMP A/G Ratio 1.3 1.1 - 2.2 12/27 NA [facility] CMP ALP 68 IU/L 30 - 115 12/27 NA [facility] CMP ALT 8 IU/L 5 - 36 12/27 NA [facility] CMP AST 14 IU/L 10 - 42 12/27 NA [facility] CMP Bilirubin, Total 0.4 MG/DL 0.2 - 1.2 12/27 NA [facility] CMP eGFR 89 mL/min/1.7 3m2 12/27 NA This eGFR equation utilizes the 2020 CKD-EPI creatinine equation.Stag es GFRNone or slight 1 >90 ml/minMild 2 60-89 ml/minModerat e 3 30-59 ml/minSevere 4 15-29 ml/minApproac julia Failure 5 <15 ml/min [facility] CMP Sex assigned at Female 12/27 NA [facility] CRP CRP C-Reactive Protein 2.30 MG/DL 0.00 - 0.90 12/27 H [facility] CRP Sex assigned at Female 12/27 [facility] Mg Magnesium Level 2.0 MG/DL 1.7 - 2.8 12/27 NA [facility] Mg Sex assigned at Female 12/27 NA [facility] PCT Procalcitonin Level <0.05 NG/ML - <=0.50 12/27 NA [facility] PCT Sex assigned at Female 12/27 [facility] Phos Phosphorus Level 4.3 MG/DL 2.5 - 4.5 12/27 NA [facility] Phos Sex assigned at Female 12/27 [facility] VancR Vancomycin Lvl Random 10.8 UG/ML 12/27 NA Therapeutic: Peak: 20 to 40 mcg/mL Trough: 5 to 15 mcg/mLToxic: Peak: >40 mcg/mL Trough: >20 mcg/mL [facility] VancR Sex assigned at Female 12/27 [facility] A1C Glycated Hgbs - Hemoglobin A1C 5.3 [...] or where there is a stringent quality systems manager program in place).In the absence of unequivocal [...] Fructosamine. *Reference Range based on ADA Guidelines. [facility] A1C Sex assigned at Female 12/26 NA [facility] AutoDiff* Auto Neutrophil Percent 76.9 % 49.4 - 72.6 12/26 H [facility] AutoDiff* Auto Neutrophil Absolute 10.8 K/uL 2.0 - 6.4 12/26 H [facility] AutoDiff* Auto Lymphocyte Percent 10.3 % 18.0 - 40.0 12/26 L [facility] AutoDiff* Auto Lymphocyte Absolute 1.4 K/uL 1.5 - 3.0 12/26 L [facility] AutoDiff* Auto Monocyte Percent 5.7 % 4.9 - 10.1 12/26 [facility] AutoDiff* Auto Monocyte Absolute 0.8 K/uL 0.3 - 0.8 12/26 NA [facility] AutoDiff* Auto Eosinophil Percent 5.5 % 0.0 - 5.0 12/26 H [facility] AutoDiff* Auto Eosinophil Absolute 0.8 K/uL 0.0 - 0.4 12/26 H [facility] AutoDiff* Auto Basophil Percent 1.6 % 0.2 - 1.2 12/26 H [facility] AutoDiff* Auto Basophil Absolute 0.2 K/uL 0.0 - 0.1 12/26 H [facility] AutoDiff* Sex assigned at Female 12/26 [facility] BNPep BNP B-Natriuretic Peptide 158 PG/ML 5 [...] clinical evaluation, additional tests should be performed. [facility] BNPep Sex assigned at Female 12/26 [facility] CBC WBC 14.0 K/uL 3.7 - 10.5 12/26 H [facility] CBC RBC 5.78 M/uL 3.61 - 5.37 12/26 H [facility] CBC HGB 12.1 g/dL 11.2 - 15.8 12/26 [facility] CBC HCT 38.7 % 32.9 - 49.0 12/26 [facility] CBC MCV 67.0 fL 80.1 - 99.2 12/26 L [facility] CBC MCH 20.9 pg 25.8 - 33.5 12/26 L [facility] CBC MCHC 31.2 g/dL 31.0 - 37.0 12/26 [facility] CBC RDW 19.2 % 12.0 - 15.8 12/26 H [facility] CBC PLT 722 K/uL 139 - 422 12/26 H [facility] CBC MPV 8.00 fL 6.84 - 10.28 12/26 [facility] CBC Sex assigned at Female 12/26 [facility] CMP Sodium Level 137 MMOL/L 135 - 145 12/26 NA [facility] Potassium Level 4.4 MMOL/L 3.5 - 5.0 12/26 NA [facility] CMP Chloride Level 106 MMOL/L 101 - 111 12/26 NA [facility] CO2/Carbon Dioxide 26 MMOL/L 24 - 32 12/26 NA [facility] Anion Gap 5.0 5.0 - 15.0 12/26 NA [facility] Glucose, Random 86 MG/DL - <=200 12/26 NA [facility] BUN 20 MG/DL 8 - 20 12/26 NA [facility] Creatinine 0.59 MG/DL 0.60 - 1.30 12/26 L [facility] BUN/Creat Ratio 33.9 12.0 - 20.0 12/26 H [facility] Osmolality, Calculated 276 mOsm/L 12/26 NA [facility] Calcium Level 8.4 MG/DL 8.4 - 10.2 12/26 NA [facility] Total Protein 5.7 g/dL 6.4 - 8.3 12/26 L [facility] Albumin Level 3.3 g/dL 3.2 - 5.5 12/26 NA [facility] Globulin Level 2.4 g/dL 1.5 - 3.5 12/26 NA [facility] A/G Ratio 1.4 1.1 - 2.2 12/26 NA [facility] CMP ALP 68 IU/L 30 - 115 12/26 NA [facility] CMP ALT 8 IU/L 5 - 36 12/26 NA [facility] CMP AST 14 IU/L 10 - 42 12/26 [facility] Bilirubin, Total 0.5 MG/DL 0.2 - 1.2 12/26 NA [facility] CMP eGFR 89 mL/min/1.7 3m2 12/26 NA This eGFR equation utilizes the 2020 CKD-EPI creatinine equation.Stag es GFRNone or slight 1 >90 ml/minMild 2 60-89 ml/minModerat e 3 30-59 ml/minSevere 4 15-29 ml/minApproac julia Failure 5 <15 ml/min [facility] CMP Sex assigned at Female 12/26 NA [facility] Ferritin Ferritin Level 17 NG/ML 10 - 291 12/26 NA [facility] Ferritin Sex assigned at Female 12/26 NA [facility] Folate Folate Level 11.60 NG/ML >=6.00 12/26 NA [facility] Folate Sex assigned at Female 12/26 NA [facility] Iron Iron Level 15 UG/DL 40 - 175 12/26 L [facility] Iron Sex assigned at Female 12/26 NA [facility] LipidP Total Cholesterol 166 MG/DL 135 - 215 12/26 NA Cholesterol Risk:<200 mg/dL [id number] to 239 mg/dL Borderline>23 9 mg/dL High [facility] LipidP Triglycerides 91 MG/DL 36 - 200 12/26 NA Triglyceride Risk: Low < 150 Borderline High 150 to 199 High 200 to 499 Very High >=500 [facility] LipidP HDL Cholesterol 56 MG/DL 29 - 89 12/26 NA [facility] LipidP LDL Cholesterol, Calc 92 MG/DL 62 - 160 12/26 NA LDL Risk: < 130 Low; 130-159 Borderline; > 160 High [facility] LipidP Total Chol/HDL Ratio 3.0 0.0 - 13.5 12/26 NA MEN: Average Risk is 5.0, 2X Risk is 9.6WOMEN: Average Risk is 4.5, 2X Risk is 7.1 [facility] LipidP LDL/HDL Ratio 1.6 12/26 NA [facility] LipidP Sex assigned at Female 12/26 NA [facility] LipidP VLDL Cholesterol, Calc 18 MG/DL 12/26 NA [facility] Mg Magnesium Level 2.0 MG/DL 1.7 - 2.8 12/26 NA [facility] Mg Sex assigned at Female 12/26 NA [facility] Phos Phosphorus Level 3.8 MG/DL 2.5 - 4.5 12/26 NA [facility] Phos Sex assigned at Female 12/26 NA [facility] PT PT - Patient 14.4 SECNDS 12.0 - 14.7 12/26 NA [facility] PT PT - INR 1.1 0.8 - 1.2 12/26 NA ANTICOAGULATE D PATIENT'S LOW RISK, INR 2.0 TO 3.0ANTICOAGUL ATED PATIENT'S HIGH RISK, INR 2.5 TO 3.5 [facility] PT Sex assigned at Female 12/26 NA [facility] Retic Reticulocyte Count 0.9 % 0.9 - 1.9 12/26 NA [facility] Retic Retic Ct - Absolute 0.05 K/uL 12/26 NA [facility] Retic Sex assigned at Female 12/26 NA [facility] Trnsf Transferrin Level 249.7 MG/DL 252.0 - 429.0 12/26 L [facility] Trnsf Sex assigned at Female 12/26 NA [facility] TSH3 TSH Thyroid Stim Hormone 3RD Generation 2.81 uIU/mL 0.40 - 5.00 12/26 NA [facility] TSH3 Sex assigned at Female 12/26 NA [facility] VitB12 Vitamin B12 Level 759.0 PG/ML 180.0 - 914.0 12/26 NA Reference Range for Vitamin B12:Normal Range 180 - 914 pg/mLIndeterm inate Range 145 - 180 pg/mLDeficien t Range <= 145 pg/mL [facility] VitB12 Sex assigned at Female 12/26 NA [facility] MRSA Nasal MRSA Nares by PCR NEGATIVE Negative 12/26 NA [facility] MRSA Nasal Sex assigned at Female 12/26 NA [facility] C Aer C Aer Final:No growth at 4 days.Sex assigned at :Fema le 12/26 [facility] C Blood C Blood Final:No growth at 5 days.Sex assigned at :Rodrigo le 12/26 Performed at: [facility], [address] [place] [id number], Workers Compensation Examiner: Johnnie Arnold M.D. [facility] AutoDiff* Auto Neutrophil Percent 79.3 % 49.4 - 72.6 12/26 H [facility] AutoDiff* Auto Neutrophil Absolute 13.1 K/uL 2.0 - 6.4 12/26 H [facility] AutoDiff* Auto Lymphocyte Percent 10.6 % 18.0 - 40.0 12/[address] [facility] AutoDiff* Auto Lymphocyte Absolute 1.7 K/uL 1.5 - 3.0 12/26 NA [facility] AutoDiff* Auto Monocyte Percent 4.6 % 4.9 - 10.1 12/[address] [facility] AutoDiff* Auto Monocyte Absolute 0.8 K/uL 0.3 - 0.8 12/26 NA [facility] AutoDiff* Auto Eosinophil Percent 4.7 % 0.0 - 5.0 12/26 NA [facility] AutoDiff* Auto Eosinophil Absolute 0.8 K/uL 0.0 - 0.4 12/26 H [facility] AutoDiff* Auto Basophil Percent 0.8 % 0.2 - 1.2 12/26 NA [facility] AutoDiff* Auto Basophil Absolute 0.1 K/uL 0.0 - 0.1 12/26 NA [facility] AutoDiff* Auto NRBC % 0 % 12/26 NA [facility] AutoDiff* Sex assigned at Female 12/26 [facility] CBC WBC 16.4 K/uL 3.7 - 10.5 12/26 H [facility] CBC RBC 6.07 M/uL 3.61 - 5.37 12/26 H [facility] CBC HGB 12.8 g/dL 11.2 - 15.8 12/26 NA [facility] CBC HCT 40.7 % 32.9 - 49.0 12/26 NA [facility] CBC MCV 67.0 fL 80.1 - 99.2 12/26 L [facility] CBC MCH 21.1 pg 25.8 - 33.5 12/26 L [facility] CBC MCHC 31.5 g/dL 31.0 - 37.0 12/26 NA [facility] CBC RDW 19.4 % 12.0 - 15.8 12/26 H [facility] CBC PLT 815 K/uL 139 - 422 12/26 H [facility] CBC MPV 8.40 fL 6.84 - 10.28 12/26 NA [facility] CBC Sex assigned at Female 12/26 NA [facility] CMP Sodium Level 136 MMOL/L 135 - 145 12/26 NA [facility] CMP Potassium Level 4.7 MMOL/L 3.5 - 5.0 12/26 NA [facility] CMP Chloride Level 104 MMOL/L 101 - 111 12/26 NA [facility] CMP CO2/Carbon Dioxide 27 MMOL/L 24 - 32 12/26 NA [facility] CMP Anion Gap 5.0 5.0 - 15.0 12/26 NA [facility] CMP Glucose, Random 95 MG/DL - <=200 12/26 NA [facility] CMP BUN 27 MG/DL 8 - 20 12/26 H [facility] CMP Creatinine 0.63 MG/DL 0.60 - 1.30 12/26 NA [facility] CMP BUN/Creat Ratio 42.9 12.0 - 20.0 04/16 /2025 H [facility] CMP Osmolality, Calculated 277 mOsm/L 12/26 [facility] CMP Calcium Level 9.0 MG/DL 8.4 - 10.2 12/26 [facility] Total Protein 6.8 g/dL 6.4 - 8.3 12/26 [facility] Albumin Level 3.8 g/dL 3.2 - 5.5 12/26 [facility] CMP Globulin Level 3.0 g/dL 1.5 - 3.5 12/26 [facility] CMP A/G Ratio 1.3 1.1 - 2.2 12/26 [facility] CMP ALP 78 IU/L 30 - 115 12/26 [facility] CMP ALT 9 IU/L 5 - 36 12/26 [facility] CMP AST 16 IU/L 10 - 42 12/26 [facility] Bilirubin, Total 0.3 MG/DL 0.2 - 1.2 12/26 [facility] CMP eGFR 88 mL/min/1.7 3m2 12/26 NA This eGFR equation utilizes the 2020 CKD-EPI creatinine equation.Stag es GFRNone or slight 1 >90 ml/minMild 2 60-89 ml/minModerat e 3 30-59 ml/minSevere 4 15-29 ml/minApproac julia Failure 5 <15 ml/min [facility] CMP Sex assigned at Female 12/26 [facility] CRP CRP C-Reactive Protein 1.40 MG/DL 0.00 - 0.90 12/26 H [facility] CRP Sex assigned at Female 12/26 [facility] ESR Auto Sedimentation Rate Auto 33 MM/HR 0 - 30 12/26 H The iSED Erythrocyte Sedimentation Rate analyzer is an automated sedimentation rate analyzer which reports sedimentation rate mm/hr. It is a non-specific, quantitative result. This test may produce falsely elevated ESR values in the presence of increased levels of Fibrinogen and gamma globulins. Please correlate result with other clinical findings. [facility] ESR Auto Sex assigned at Female 12/26 NA [facility] Lactic WB Lactic Acid WB 0.83 MMOL/L 0.56 - 1.39 12/26 NA [facility] Lactic WB Sex assigned at Female 12/26 NA [facility] C Blood C Blood Final:No growth at 5 days.Sex assigned at :Fema le 12/26 Performed at: [facility], [address] [place] [id number], Workers Compensation Examiner: Johnnie Arnold M.D. [facility] A1C Glycated Hgbs - Hemoglobin A1C 5.4 [...] or where there is a stringent quality systems manager program in place).In the absence of unequivocal [...] Fructosamine. *Reference Range based on ADA Guidelines. [facility] A1C Sex assigned at Female 01/18 NA [facility] AutoDiff* Auto Neutrophil Percent 70.6 % 49.4 - 72.6 01/18 NA [facility] AutoDiff* Auto Neutrophil Absolute 8.1 K/uL 2.0 - 6.4 01/18 H [facility] AutoDiff* Auto Lymphocyte Percent 15.4 % 18.0 - 40.0 01/18 L [facility] AutoDiff* Auto Lymphocyte Absolute 1.8 K/uL 1.5 - 3.0 01/18 NA [facility] AutoDiff* Auto Monocyte Percent 4.7 % 4.9 - 10.1 01/18 L [facility] AutoDiff* Auto Monocyte Absolute 0.5 K/uL 0.3 - 0.8 01/18 NA [facility] AutoDiff* Auto Eosinophil Percent 5.3 % 0.0 - 5.0 01/18 H [facility] AutoDiff* Auto Eosinophil Absolute 0.6 K/uL 0.0 - 0.4 01/18 H [facility] AutoDiff* Auto Basophil Percent 4.0 % 0.2 - 1.2 01/18 H [facility] AutoDiff* Auto Basophil Absolute 0.5 K/uL 0.0 - 0.1 01/18 H [facility] AutoDiff* Auto NRBC % 0 % 01/18 [facility] AutoDiff* Sex assigned at Female 01/18 [facility] BMP Sodium Level 140 MMOL/L 135 - 145 01/18 [facility] BMP Potassium Level 3.8 MMOL/L 3.5 - 5.0 01/18 [facility] BMP Chloride Level 107 MMOL/L 101 - 111 01/18 [facility] BMP CO2/Carbon Dioxide 26 MMOL/L 24 - 32 01/18 [facility] BMP Anion Gap 7.0 5.0 - 15.0 01/18 [facility] BMP Glucose, Random 82 MG/DL - <=200 01/18 NA [facility] BMP BUN 13 MG/DL 8 - 20 01/18 NA [facility] BMP Creatinine 0.49 MG/DL 0.60 - 1.30 01/18 L [facility] BUN/Creat Ratio 26.5 12.0 - 20.0 01/18 H [facility] Osmolality, Calculated 279 mOsm/L 01/18 NA [facility] BMP Calcium Level 8.3 MG/DL 8.4 - 10.2 01/18 L [facility] BMP eGFR >90 mL/min/1.7 3m2 01/18 NA This eGFR equation utilizes the 2020 CKD-EPI creatinine equation.Stag es GFRNone or slight 1 >90 ml/minMild 2 60-89 ml/minModerat e 3 30-59 ml/minSevere 4 15-29 ml/minApproac julia Failure 5 <15 ml/min [facility] BMP Sex assigned at Female 01/18 NA [facility] CBC WBC 11.5 K/uL 3.7 - 10.5 01/18 H [facility] CBC RBC 5.90 M/uL 3.61 - 5.37 01/18 H [facility] CBC HGB 12.5 g/dL 11.2 - 15.8 01/18 NA [facility] CBC HCT 40.6 % 32.9 - 49.0 01/18 NA [facility] CBC MCV 68.8 fL 80.1 - 99.2 01/18 L [facility] CBC MCH 21.2 pg 25.8 - 33.5 01/18 L [facility] CBC MCHC 30.8 g/dL 31.0 - 37.0 01/18 L [facility] CBC RDW 18.6 % 12.0 - 15.8 01/18 H [facility] CBC PLT 499 K/uL 139 - 422 01/18 H [facility] CBC MPV 7.90 fL 6.84 - 10.28 01/18 NA [facility] CBC Sex assigned at Female 01/18 NA [facility] LipidP Total Cholesterol 170 MG/DL 135 - 215 01/18 NA Cholesterol Risk:<200 mg/dL [id number] to 239 mg/dL Borderline>23 9 mg/dL High [facility] LipidP Triglycerides 63 MG/DL 36 - 200 01/18 NA Triglyceride Risk: Low < 150 Borderline High 150 to 199 High 200 to 499 Very High >=500 [facility] LipidP HDL Cholesterol 70 MG/DL 29 - 89 01/18 NA [facility] LipidP LDL Cholesterol, Calc 87 MG/DL 62 - 160 01/18 NA LDL Risk: < 130 Low; 130-159 Borderline; > 160 High [facility] LipidP Total Chol/HDL Ratio 2.4 0.0 - 13.5 01/18 NA MEN: Average Risk is 5.0, 2X Risk is 9.6WOMEN: Average Risk is 4.5, 2X Risk is 7.1 [facility] LipidP LDL/HDL Ratio 1.2 01/18 NA [facility] LipidP Sex assigned at Female 01/18 NA [facility] LipidP VLDL Cholesterol, Calc 13 MG/DL 01/18 [facility] PCT Procalcitonin Level <0.05 NG/ML - <=0.50 01/18 NA [facility] PCT Sex assigned at Female 01/18 [facility] TSH3 TSH Thyroid Stim Hormone 3RD Generation 2.86 uIU/mL 0.40 - 5.00 01/18 NA [facility] TSH3 Sex assigned at Female 01/18 [facility] VitB12 Vitamin B12 Level 634.0 PG/ML 180.0 - 914.0 01/18 NA Reference Range for Vitamin B12:Normal Range 180 - 914 pg/mLIndeterm inate Range 145 - 180 pg/mLDeficien t Range <= 145 pg/mL [facility] VitB12 Sex assigned at Female 05/09 /2024 [facility] POC Gluc POCT - Glucose (Capillary) 86 MG/DL 65 - 110 01/18 NA Device Code: [id number] ity: 0060Location: 60 MED/SURSerial Number: [id number] perator Code: [id number] or Name: Jesús BADILLO Lot: [id number] r Comment: Cleaned Meter [facility] POC Gluc Sex assigned at Female 01/18 [facility] Lactic WB Lactic Acid WB 0.64 MMOL/L 0.56 - 1.39 01/18 [facility] Lactic WB Sex assigned at Female 01/18 [facility] C Blood C Blood Final:No growth at 5 days.Sex assigned at :Fema le 01/18 [facility] UACSIf UA - Source/Collec t Type [...] Please correlate with clinical and dietary history [facility] UACSIf UA - Appearance Clear Clear 01/18 [facility] UACSIf UA - Color Yellow 01/18 [facility] UACSIf UA - pH 6.0 5.0 - 8.0 01/18 [facility] UACSIf UA - Specific [place] 1.030 1.010 - 1.025 01/18 * [facility] UACSIf UA - Protein Negative Negative 01/18 [facility] UACSIf UA - Glucose Negative Negative 01/18 [facility] UACSIf UA - Ketones Negative Negative 01/18 [facility] UACSIf UA - Bilirubin Negative Negative 01/18 [facility] UACSIf UA - Blood Negative Negative 01/18 NA [facility] UACSIf UA - Urobilinogen Negative Negative 01/18 NA [facility] UACSIf UA - Nitrites Negative Negative 01/18 NA [facility] UACSIf UA - Leukocyte Esterase Small Negative 01/18 * [facility] UACSIf Urine Culture Y/N Yes 01/18 NA [facility] UACSIf UA - WBC 7 /HPF 0 - 5 01/18 H [facility] UACSIf UA - RBC <1 /HPF 0 - 2 01/18 NA [facility] UACSIf UA - Bacteria Negative Negative 01/18 NA [facility] UACSIf UA - Epithelials, Squamous Few 0 - 5 01/18 NA [facility] UACSIf Sex assigned at Female 01/18 NA [facility] C Urine C Urine Final:40,0 00 cfu/ml Three or more bacterial species isolated from urine indicating superficia l or fecal contaminat ion. 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 [facility] CLIA Sex assigned at Female 01/18 [facility] AutoDiff* Auto Neutrophil Percent 75.9 % 49.4 - 72.6 01/18 H [facility] AutoDiff* Auto Neutrophil Absolute 11.2 K/uL 2.0 - 6.4 01/18 H [facility] AutoDiff* Auto Lymphocyte Percent 14.5 % 18.0 - 40.0 01/18 L [facility] AutoDiff* Auto Lymphocyte Absolute 2.1 K/uL 1.5 - 3.0 01/18 [facility] AutoDiff* Auto Monocyte Percent 5.1 % 4.9 - 10.1 01/18 [facility] AutoDiff* Auto Monocyte Absolute 0.8 K/uL 0.3 - 0.8 01/18 [facility] AutoDiff* Auto Eosinophil Percent 4.2 % 0.0 - 5.0 01/18 [facility] AutoDiff* Auto Eosinophil Absolute 0.6 K/uL 0.0 - 0.4 01/18 H [facility] AutoDiff* Auto Basophil Percent 0.3 % 0.2 - 1.2 01/18 [facility] AutoDiff* Auto Basophil Absolute 0.0 K/uL 0.0 - 0.1 01/18 [facility] AutoDiff* Auto NRBC % 0 % 01/18 [facility] AutoDiff* Sex assigned at Female 01/18 NA [facility] CBC WBC 14.8 K/uL 3.7 - 10.5 01/18 H [facility] CBC RBC 6.16 M/uL 3.61 - 5.37 01/18 H [facility] CBC HGB 13.4 g/dL 11.2 - 15.8 01/18 NA [facility] CBC HCT 42.5 % 32.9 - 49.0 01/18 NA [facility] CBC MCV 68.9 fL 80.1 - 99.2 01/18 L [facility] CBC MCH 21.8 pg 25.8 - 33.5 01/18 L [facility] CBC MCHC 31.6 g/dL 31.0 - 37.0 01/18 NA [facility] CBC RDW 18.4 % 12.0 - 15.8 01/18 H [facility] CBC PLT 534 K/uL 139 - 422 01/18 H [facility] CBC MPV 7.60 fL 6.84 - 10.28 01/18 NA [facility] CBC Sex assigned at Female 01/18 NA [facility] CMP Sodium Level 137 MMOL/L 135 - 145 01/18 NA [facility] CMP Potassium Level 4.3 MMOL/L 3.5 - 5.0 01/18 NA [facility] CMP Chloride Level 102 MMOL/L 101 - 111 01/18 NA [facility] CMP CO2/Carbon Dioxide 28 MMOL/L 24 - 32 01/18 NA [facility] CMP Anion Gap 7.0 5.0 - 15.0 01/18 NA [facility] CMP Glucose, Random 104 MG/DL - <=200 01/18 [facility] CMP BUN 19 MG/DL 8 - 20 01/18 NA [facility] CMP Creatinine 0.67 MG/DL 0.60 - 1.30 01/18 NA [facility] CMP BUN/Creat Ratio 28.4 12.0 - 20.0 01/18 H [facility] Osmolality, Calculated 276 mOsm/L 01/18 [facility] Calcium Level 9.0 MG/DL 8.4 - 10.2 01/18 [facility] Total Protein 7.4 g/dL 6.4 - 8.3 01/18 [facility] Albumin Level 4.0 g/dL 3.2 - 5.5 01/18 [facility] Globulin Level 3.4 g/dL 1.5 - 3.5 01/18 [facility] A/G Ratio 1.2 1.1 - 2.2 01/18 [facility] CMP ALP 88 IU/L 30 - 115 01/18 [facility] ALT 14 IU/L 5 - 36 01/18 [facility] AST 20 IU/L 10 - 42 01/18 [facility] Bilirubin, Total 0.3 MG/DL 0.2 - 1.2 01/18 [facility] eGFR 87 mL/min/1.7 3m2 01/18 NA This eGFR equation utilizes the 2020 CKD-EPI creatinine equation.Stag es GFRNone or slight 1 >90 ml/minMild 2 60-89 ml/minModerat e 3 30-59 ml/minSevere 4 15-29 ml/minApproac julia Failure 5 <15 ml/min [facility] CMP Sex assigned at Female 01/18 [facility] MDW MDW 19.1 AU 0.0 - 19.9 [...] with hematological abnormalities has not been established. [facility] MDW Sex assigned at Female 01/18 NA [facility] PT PT - Patient 13.2 SECNDS 12.0 - 14.7 01/18 NA [facility] PT PT - INR 1.0 0.8 - 1.2 01/18 NA ANTICOAGULATE D PATIENT'S LOW RISK, INR 2.0 TO 3.0ANTICOAGUL ATED PATIENT'S HIGH RISK, INR 2.5 TO 3.5 [facility] PT Sex assigned at Female 01/18 [facility] PTT PTT - Patient 40 SECNDS 22 - 36 01/18 H Therapeutic Range:Heparin Units PTT Range0.3 - 0.7 IU/mL 73.4 - 96.20.1 - 0.3 IU/mL 61.9 - 73.4 [facility] PTT Sex assigned at Female 01/18 NA [facility] TROPHS Troponin I High Sensitivity 11 [...] testing may be helpful for interpretatio n. [facility] TROPHS Sex assigned at Female 01/18 NA [facility] POC Gluc POCT - Glucose (Capillary) 118 MG/DL 65 - 110 01/18 H Device Code: 60 ERCFacility: 0060Location: 60 ERSerial Number: [id number] perator Code: Michelle mtz Name: Judi LoidaAngely able Lot: [id number] Comment: Physician Notified [facility] POC Gluc Sex assigned at Female 01/18 NA [facility] POC PT/INR POCT - INR 1.3 1.0 - 1.3 01/18 NA [facility] POC PT/INR Sex assigned at Female 01/18 NA [facility] Pathology Reports Report Value Date Source Surg [...] aggregate. The specimen is serially sectioned and sales representative aircraft sections submitted in cassettes [id number] Female 12/27/2024 [facility] Diagnostic Reports Report Value Date Source US [...] extremity arteries. Peak systolic velocities (cm/s): Right SALES ASSISTANTS AND SALESPERSONS: 94 Right SFA (prox): 101 Right SFA (mid): 100 Right SFA (distal): 87 Right Popliteal: 65 Right STORE OPERATIONS SPECIALIST: 42 Right ANDRES: 56, monophasic Right DPA: 54 Left SALES ASSISTANTS AND SALESPERSONS: 137 Left SFA (prox): 117 Left SFA (mid): 107 Left SFA (distal): 109 Left Popliteal: 86 Left STORE OPERATIONS SPECIALIST: Covered by dressing Left ANDRES: Covered by [...] please contact your referring doctor directly. 12/29/2024 [facility] Tibia/Fibula Lt 2 Vw Exam: Left Tibia/Fi [...] within a region of pitting edema 12/26/2024 [facility] MRI Brain WO Contrast Exam: MRI Brain [...] please contact your referring doctor directly. 01/19/[address] [facility] [address] Brain WO Contrast Exam: CT [...] Addendum Results were relayed by the radiologist public services assistant to Dr. Carter on 01/18/2024 8:49 p.m. 01/19/2024 [facility] Chest 1 Vw Portable Exam: X-ray [...] please contact your referring doctor directly. 01/19/[address] [facility] [address] Angio Head/Neck W Contrast Exam: [...] more distal vessel in accordance with [place] Symptomatic Carotid Endarterectomy Trial (NASCET). If you are a provider and would like to contact the interpreting physician or one of the staff members, please call . For patients who have questions in regard to this examination, please contact your referring doctor directly. 01/19/2024 [facility] Consultation Notes Results Value Date Source ED Physician Notes Patient: JEWEL CURRAN Age: 84 years Legal Sex: FEMALE : 1940 Chief Complaint Pt came for recheck left leg surgical wound prior leaving tomorrow to [facility]. Pt had a surgery to left lower [...] discharged. Patient is flying back home to [place] tomorrow. She came in today for reevaluation [...] # 1 ea, 0 Refill(s), Maintenance, Pharmacy: [facility]/pharmacy #[id number], Supply, 157.48, cm, 12/26/24 1:27:0... Non-formulary medication 1 inch iodoform packing material, See Instructions, Please dispense 1 container of 1 inch iodoform packing. Directions, change out packing daily., # 1 ea, 0 Refill(s), Maintenance, Pharmacy: [facility]/pharmacy #[id number], Supply, 157.48, cm, 12/26/24 1:27:00 PD... collagenase topical 1 Applic, TOP, DAILY, # 30 gm, 0 Refill(s), Maintenance, Pharmacy: [facility]/pharmacy #[id number], 157.48, cm, 12/26/24 1:27:00 PDT, Height/Length (cm), 60.1, kg, 01/01/25 12:07:00 PDT, Dose calculation weight (kg) collagenase topical 1 Applic, TOP, DAILY, # 30 gm, 0 Refill(s), Acute, Pharmacy: [facility]/pharmacy #[id number], 157.48, cm, 12/26/24 1:27:00 PDT, Height/Length [...] # 1 ea, 0 Refill(s), Maintenance, Pharmacy: [facility] #[id number], Supply, 157.48, cm, 12/26/24 1:27:00... collagenase topical 1 Applic, TOP, DAILY, # 30 gm, 0 Refill(s), Acute, Pharmacy: [facility] #[id number], 157.48, cm, 12/26/24 1:27:00 PDT, Height/Length (cm), [...] discharged. Patient is flying back home to [place] tomorrow. She came in today for reevaluation [...] # 1 ea, 0 Refill(s), Maintenance, Pharmacy: [facility] #[id number], Supply, 157.48, cm, 12/26/24 1:27:00... 01/01/2025 13:11 PDT collagenase topical 250 units/g ointment, 1 Applic, TOP, DAILY, # 30 gm, 0 Refill(s), Acute, Pharmacy: [facility] #[id number], 157.48, cm, 12/26/24 1:27:00 PDT, Height/Length (cm), [...] new or worsening symptoms. MSEI Information MSEI MD/VBA PROGRAMMER/PA Time Patient Seen face to face: Date [...] and take responsibility for the patient management. [id number] Female 01/01/2025 [facility] Post-Anesthesia Note Patient: VIJAY CURRAN Age: 84 [...] Status: Euvolemic. Temperature within expected parameters: Yes. [id number] Female 12/31/2024 [facility] General Surgery Progress Note Patient: VIJAY CURRAN [...] infected necrotic wounds 12/28 dressing changed with artist agent Luh today. wounds have healthy tissue only, no evidence of infection anymore. wbc 17- may be reactive postop? hct stable plan artist agent for recs- instructions given to patient. supplies [...] Time spent on patient care: 35 minutes [id number] Female 12/28/2024 [facility] Wound Pressure Injury Photo Note Patient: VIJAY [...] for f/u tx when she return to [place]. Patient acknowledged all education. Primary RN update wound care orders received. Primary RN to continue with wound care orders. Electronically signed by: OMID Wu Reyna Signed on: 28-Dec-2024 15:27 PDT Electronically routed to: MD Ortiz, Santiago Webb Electronically routed to: MD Noe, Brianne Gloria 12/28/[address] [place] [address] Discharge summary Patient: VIJAY CURRAN ? Age: [...] MD, Mustapha barfield Care: MD Олег MCDONALD [facility] Care: Sharon FULTON, NOT ON FILE Final [...] 1.4, lactic 0.83 Patient was seen at [facility] urgent care in [facility] telephone number [phone]. Son thinks that they may have done a wound culture thereLast week but has not heard of any results. #Left calf wound with slough and surrounding erythema s/p I&D on 12/27 - had I&D outpatient by a surgeon but patient unfamiliar with providers name, had progressive redness thereafter, failed outpatient po abx, cw iv vanc/zosyn, artist agent, bcx-ngtd, follow cultures - consulted ID/kimberly Suárez appreciated- iv vanc/zosyn, tbd, cleared for discharge on po doxy 100 mg bid and keflex 500 mg qid x 7 days total - consulted Surgeon/kimberly Patel appreciated-I&D on 12/27, will need to see plastic surgery for reconstruction, wound care center outpatient for follow up, outpatient follow up - CM referral for home health artist agent #Hx of TIA - holding aspirin for [...] cm W T: 6 5.4 kg B AL: 2 6.37 kg/m2 General Appearance: NAD. HEENT: NCAT. Cardiovascular: NSR. Respiratory: CTAB. Gastrointestinal: Soft, non-distended, non-tender. Genitourinary: N o suprapubic tenderness. No flank pain. Musculoskeletal: dressings dry and intact. Neurological: Alert and interactive with normal affect. Grossly intact motor and sensory examination. Discharge Plan Patient Discharge Condition stable Discharge Disposition/Location Discharge Date: 12/28/24 Discharge Location: [facility] with Home Health Care Discharge Details Follow-Up Plans: lolly hu PCP, Surgeon/Dr. Liu, Wound Care team, and Plastic Surgeon within 2 weeks from discharge Discharge Care Instructions: олег edmonds complete antibiotic regimen as prescribed, please continue wound care per [facility], please follow up as instructed [...] capsule)1 Capsules Oral DAILY. Refills: 0. Unchanged [id number] Milligram Oral EVERY MORNING. [id number] Milligram Oral DAILY. solifenacin (solifenacin 5 mg [...] Signed on: 28-Dec-2024 15:10 PDT 12/28/2024 [facility] Patient: VIJAY CURRAN ? Age: 84 years Legal Sex: FEMALE : 1940 Date of Service 12/28/2024 13:19 PDT Subjective - may, cw iv vanc/zosyn, bcx-ngtd, monitor wcx-pending, resume aspirin sp surgical debridement, cw artist agent, ID/Surgeon recs appreciated - sp I &D [...] cm W T: 6 5.4 kg B AL: 2 6.37 kg/m2 Physical Exam General Appearance: [...] 1.4, lactic 0.83 Patient was seen at [facility] urgent care in [facility] telephone number [phone]. Son thinks that they may have done a wound culture thereLast week but has not heard of any results. #Left calf wound with slough and surrounding erythema s/p I&D on 12/27 - had I&D outpatient by a surgeon but patient unfamiliar with providers name, had progressive redness thereafter, failed outpatient po abx, cw iv vanc/zosyn, artist agent, bcx-ngtd, wcx-pending - consulted ID/Dr. Echevarria recs [...] piperacillin-tazobactam 3 .375 gm 1 Vial, IVPB, [id number] polyethylene glycol Pwd Oral Soln 17 gm 1 7 gm 1 Pkt, ORAL, DAILY sodium chloride 0.9%, 10 mL Flush 1 0 mL, IV FLUSH, Q12H solifenacin 5 mg Tab 5 mg 1 Tab, ORAL, QBedtime vancomycin / D5W 1 ,000 mg 200 mL, IVPB, [id number] vancomycin pharmacy to dose R x to [...] / SWFI 2 gm 50 mL, IVPB, [id number] Milk of Magnesia 30 mL 3 0 mL, ORAL, BID nalOXone 0.4 mg/mL, 1 mL Inj 0 .1 mg 0.25 mL, IV PUSH, As directed nitroglycerin 0.4 mg SL Tab #25 0 .4 mg 1 Tab, SUBLING, [id number] ondansetron 2 mg/mL, 2 mL Inj 4 [...] Signed on: 28-Dec-2024 13:22 PDT 12/28/2024 [facility] Patient: VIJAY CURRAN Age: 84 years Legal Sex: FEMALE : 1940 Date of Service 12/28/2024 13:19 PDT Subjective - may, cw iv vanc/zosyn, bcx-ngtd, monitor wcx-pending, resume aspirin sp surgical debridement, cw artist agent, ID/Surgeon recs appreciated - sp I&D on [...] 1.4, lactic 0.83 Patient was seen at [facility] urgent care in [facility] telephone number [phone]. Son thinks that they may have done a wound culture thereLast week but has not heard of any results. #Left calf wound with slough and surrounding erythema s/p I&D on 12/27 - had I&D outpatient by a 'surgeon' but patient unfamiliar with providers name, had progressive redness thereafter, failed outpatient po abx, cw iv vanc/zosyn, artist agent, bcx-ngtd, wcx-pending - consulted ID/kimberly Suárez appreciated- [...] ACBkfst piperacillin-tazobactam 3.375 gm 1 Vial, IVPB, Q9D-Iuxmhprg polyethylene glycol Pwd Oral Soln 17 gm 17 gm 1 Pkt, ORAL, DAILY sodium chloride 0.9%, 10 mL Flush 10 mL, IV FLUSH, Q12H solifenacin 5 mg Tab 5 mg 1 Tab, ORAL, QBedtime vancomycin / D5W 1,000 mg 200 mL, IVPB, F59P-Yahxnpfk vancomycin pharmacy to dose Rx to Dose, [...] / SWFI 2 gm 50 mL, IVPB, U53C-Tnyoglie Milk of Magnesia 30 mL 30 mL, ORAL, BID nalOXone 0.4 mg/mL, 1 mL Inj 0.1 mg 0.25 mL, IV PUSH, As directed nitroglycerin 0.4 mg SL Tab #25 0.4 mg 1 Tab, SUBLING, M1O-Jolmesph ondansetron 2 mg/mL, 2 mL Inj 4 [...] depression within a region of pitting edema [id number] Female 12/28/2024 [facility] Operation/Procedure Report Surgery Date: 12/27/2024 Surgeon: Brianne Liu MD PREOPERATIVE DIAGNOSES: 1. Left leg abscess. 2. Left leg necrotic wounds. POSTOPERATIVE DIAGNOSES: 1. Left leg abscess. 2. Left leg necrotic wounds. PROCEDURE: Examination under anesthesia, incision and drainage and excisional debridement of left leg infected necrotic wounds. SURGEON: Brianne Liu. ROTATING FIELD ASSEMBLER: None. ANESTHESIA: General, local. ESTIMATED BLOOD LOSS: 5 mL SPECIMEN: Left leg wound tissue. DRAINS: None. COMPLICATIONS: None. INTRAOPERATIVE FINDINGS: See the procedure description. INDICATIONS: This is an 84-year-old female who has had left leg wounds for about 3-4 weeks. She saw a surgeon 3 weeks ago in [place] who excised this wound under local anesthesia, and she states that it was bleeding a lot and there was pus coming out. The wound was packed with iodoform and the packing was removed about a week, maybe even 2 weeks later. She was given antibiotics after the excision. She was at [facility] 1 week ago, packing was removed and the wound was cleaned and a new bandage was applied and she was given antibiotics. Again, she continues to have left leg pain. She is here in [place] visiting for [facility]. She is from [place]. Patient states that she did not have [...] infection, injury to nearby structures, DVT, PE, AL, stroke, , scar, deformity, wound dehiscence, poor [...] unit [place] [id number] Female 12/28/2024 [facility] Operation/Procedure Report Patient: VIJAY CURRAN Age: 84 years Legal Sex: FEMALE : 1940 Preoperative Diagnosis left leg abscess, left leg wounds Postoperative Diagnosis left leg abscess, left leg wounds Operation EXTREMITY LOWER INCISION AND DRAINAGE DEBRIDEMENT, Left Surgeon(s) MD Noe, Brianne Gloria (Surgeon/Provider - 1) Nuclear Equipment Sales Engineer(s) none Anesthesia General_2 MD Mccauley Oscar J [...] L [1] Complications none Drains none plan artist agent for recs antibiotics as per ID recs likely will need to see plastic surgery for reconstruction [place] [id number] Female 12/27/2024 [facility] Pre-Anesthesia Evaluation Patient: VIJAY CURRAN Age: 84 [...] Zosyn: 3.375 gm = 1 Vial, IVPB, E5M-Yrcudzhq, Indication= Skin/Soft tissue infxn, necrotizing, VIAL, 12/26/24 [...] Premix: 2 gm = 50 mL, IVPB, S05N-Hqwvpgah, PRN, Magnesium Replacement, IV SOLN, 12/25/24:34:00 PDT, 50 mL/hr, 60 min nalOXone: 0.1 mg, IV PUSH, As directed, Indication = Sedation reversal/rescue, PRN, Sedation, INJ, 12/25/24:34:00 PDT nitroglycerin: 0.4 mg, SUBLING, I5F-Bsmneaeq, PRN, Chest Pain, TAB SUBLING, 12/25/24 23:34:00 [...] vancomycin: 1,000 mg = 200 mL, IVPB, L71J-Wplkbhzp, Indication= Skin/Soft tissue infxn, necrotizing, INJ, 12/26/24 9:00:00 PDT, 133.33 mL/hr, 90 min zinc sulfate: 220 mg, ORAL, DAILY, CAP, 12/27/24 13:08:00 PDT, 14 Day(s), Stop date 01/10/25 13:07:00 PDT Prescriptions Prescribed mupirocin topical 2% ointment: 1 Applic, TOP, TID, # 22 gm, 0 Refill(s), Maintenance, Pharmacy: [facility]/pharmacy #[id number], 157.5, cm, 01/19/24 1:08:00 PDT, Height/Length [...] (ST) No Qualifying Data. Assessment and Plan [place] [employer] Anesthesiologists (ASA) physical status classification: Class 3 - Severe systemic disease. Anesthetic Preoperative Plan Premedication: None. Proposed Anesthesia: General anesthesia. Postoperative pain management: Per surgeon. Risks discussed: nausea, vomiting, headache, sore throat, dental injury, hypotension, allergic reaction, serious complications. Yes, patient has met the criteria.. Informed Consent: I have discussed the anesthesia plan with the patient/patient's legal sales representative aircraft including the risks, benefits, potential complications, and alternative to the anesthesia plan proposed., The discussion included an opportunity to ask questions, all of which have been answered to the patient's/sales representative aircraft's satisfaction. The patient/sales representative aircraft verbalized understanding and wish to proceed.. [id number] Female 12/27/2024 [facility] Patient: VIJAY CURRAN Age: 84 years Legal Sex: FEMALE : 1940 Date of Service 12/27/2024 13:16 PDT Subjective - may, cw iv vanc/zosyn, bcx/wcx-pending, holding aspirin for surgical debridement, cw artist agent, ID/Surgeon recs appreciated - I&D on 12/27 [...] 1.4, lactic 0.83 Patient was seen at [facility] urgent care in [facility] telephone number [phone]. Son thinks that they may have done a wound culture thereLast week but has not heard of any results. #Left calf wound with slough and surrounding erythema - had I&D outpatient by a 'surgeon' but patient unfamiliar with providers name, had progressive redness thereafter, failed outpatient po abx, cw iv vanc/zosyn, artist agent, bcx/wcx-pending - consulted ID/Dr. Echevarria, recs appreciated [...] ACBkfst piperacillin-tazobactam 3.375 gm 1 Vial, IVPB, C2U-Carchmww polyethylene glycol Pwd Oral Soln 17 gm 17 gm 1 Pkt, ORAL, DAILY sodium chloride 0.9%, 10 mL Flush 10 mL, IV FLUSH, Q12H solifenacin 5 mg Tab 5 mg 1 Tab, ORAL, QBedtime vancomycin / D5W 1,000 mg 200 mL, IVPB, S78B-Anyujcml vancomycin pharmacy to dose Rx to Dose, [...] / SWFI 2 gm 50 mL, IVPB, X44G-Nuxswrrl Milk of Magnesia 30 mL 30 mL, ORAL, BID nalOXone 0.4 mg/mL, 1 mL Inj 0.1 mg 0.25 mL, IV PUSH, As directed nitroglycerin 0.4 mg SL Tab #25 0.4 mg 1 Tab, SUBLING, T1N-Nqxbkfjb ondansetron 2 mg/mL, 2 mL Inj 4 [...] depression within a region of pitting edema [id number] Female 12/27/2024 [facility] Infectious Disease Progress Note Patient: VIJAY CURRAN [...] leg wound with cellulitis Extno c.c.e Neuro-AAOX4, FINISH MOLDER II-XII are intact, no focal deficits Assessment/Plan _ Breast cancer in female (Malignant neoplasm of unspecified site of unspecified female breast, C50.919) Cellulitis, leg (Cellulitis of unspecified part of limb, L03.119) History of asthma (Personal history of other diseases of the respiratory system, Z87.09) HTN (hypertension) (Essential (primary) hypertension, I10) Leg ulcer (Leg ulcer, [id number]) Necrotizing cellulitis (Cellulitis, unspecified, 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) TIA (transient [...] ACBkfst piperacillin-tazobactam 3.375 gm 1 Vial, IVPB, M0N-Okarkshv sodium chloride 0.9%, 10 mL Flush 10 mL, IV FLUSH, Q12H solifenacin 5 mg Tab 5 mg 1 Tab, ORAL, QBedtime vancomycin / D5W 1,000 mg 200 mL, IVPB, F91L-Ikroleyk vancomycin pharmacy to dose Rx to Dose, [...] / SWFI 2 gm 50 mL, IVPB, U03S-Iwerfkmx Milk of Magnesia 30 mL 30 mL, ORAL, BID nalOXone 0.4 mg/mL, 1 mL Inj 0.1 mg 0.25 mL, IV PUSH, As directed nitroglycerin 0.4 mg SL Tab #25 0.4 mg 1 Tab, SUBLING, R6M-Yinckvpp ondansetron 2 mg/mL, 2 mL Inj 4 [...] 3.375 gm, 1 Vial, 12.5 mL/hr, IVPB, L9Y-Erfswsii, Start: 12/26/2024 03:00 - Stop: 01/02/2025 02:59 Anti-Infective Medications (Ordered) clindamycin, = 1 Cap, ORAL, TID, TAKE 1 CAPSULE BY MOUTH 3 TIMES A DAY FOR 7 DAYS piperacillin-tazobactam, 3.375 gm = 1 Vial, IVPB, P1Y-Laubmrsw, Indication= Skin/Soft tissue infxn, necrotizing, VIAL, 12/26/24 3:00:00 PDT, 7 Day(s), Stop date 01/02/25 2:59:00 PDT, 12.5 mL/hr, 4 hr, Extended infusion, standard dose vancomycin, 1,000 mg = 200 mL, IVPB, X54Y-Zkfvageu, Indication= Skin/Soft tissue infxn, necrotizing, INJ, 12/26/24 [...] depression within a region of pitting edema [id number] Female 12/27/2024 [facility] Infectious Disease Consultation Patient: VIJAY CURRAN Age: [...] Skin:wounds on left leg Extno c.c.e Neuro-AAOX4, FINISH MOLDER II-XII are intact, no focal deficits IMAGING: [...] ACBkfst piperacillin-tazobactam 3.375 gm 1 Vial, IVPB, P5W-Mtzxicrc sodium chloride 0.9%, 10 mL Flush 10 mL, IV FLUSH, Q12H solifenacin 5 mg Tab 5 mg 1 Tab, ORAL, QBedtime vancomycin / D5W 1,000 mg 200 mL, IVPB, I39F-Fprgnenk vancomycin pharmacy to dose Rx to Dose, [...] / SWFI 2 gm 50 mL, IVPB, F58W-Mstuznfz Milk of Magnesia 30 mL 30 mL, ORAL, BID nalOXone 0.4 mg/mL, 1 mL Inj 0.1 mg 0.25 mL, IV PUSH, As directed nitroglycerin 0.4 mg SL Tab #25 0.4 mg 1 Tab, SUBLING, B7D-Kacgorag ondansetron 2 mg/mL, 2 mL Inj 4 [...] piperacillin-tazobactam, 3.375 gm = 1 Vial, IVPB, B1Q-Rotwjjmb, Indication= Skin/Soft tissue infxn, necrotizing, VIAL, 12/26/24 3:00:00 PDT, 7 Day(s), Stop date 01/02/25 2:59:00 PDT, 12.5 mL/hr, 4 hr, Extended infusion, standard dose vancomycin, 1,000 mg = 200 mL, IVPB, W05T-Giuehbpl, Indication= Skin/Soft tissue infxn, necrotizing, INJ, 12/26/24 [...] piperacillin-tazobactam, 3.375 gm = 1 Vial, IVPB, P2J-Vzewiqtg, Indication= Skin/Soft tissue infxn, necrotizing, VIAL, 12/26/24 3:00:00 PDT, 7 Day(s), Stop date 01/02/25 2:59:00 PDT, 12.5 mL/hr, 4 hr, Extended infusion, standard dose vancomycin, 1,000 mg = 200 mL, IVPB, J23O-Sizchaya, Indication= Skin/Soft tissue infxn, necrotizing, INJ, 12/26/24 [...] radiology was discussed with patient and their sales representative aircraft in detail. GO545 is used for Visit's complex care associated with a confirmed or suspected infectious disease, including disease transmission risk assessment and mitigation, public health investigation, analysis, and testing, and complex antimicrobial therapy counseling and treatment, antibiotic stewarship including discussion with clinical pharmacist, laboratory interpretation-testing- investigation-orders and management, isolation guidelines to zssgrls-abdwym-kacurjwl staff, discharge planning including orders prescription transmission. EMR and dragon attestation this medical document was created using electronic medical record system with a [employer] dictation system. Although the document has been [...] for the treatment of their existing/anticipated condition. [id number] Female 12/27/2024 [facility] Surgery Consult note Patient: VIJAY CURRAN ? [...] patient's description. She is currently here in [facility]- she is from [place]. 3 weeks ago, a surgeon in [place] evaluated her wound and pt states that [...] given at that time. She went to [facility] 1 week ago for evaluation and [...] Wt.) W T: 6 5.4 kg B AL: 2 6.37 kg/m2 GEN: (+)NAD, (+)cooperative with [...] open and likely packed daily. will have artist agent evaluate wound after procedure and give recommendations for discharge. pt will need N set up potentially, but she is out of state and staying with family here in [facility]. She is flying back to [place] next Tuesday. 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 She is currently here in [facility] visiting family for [facility]- she is from [place]. 3 weeks ago, a surgeon in [place] evaluated her wound and pt states that [...] given at that time. She went to [facility] 1 week ago for evaluation and [...] open and likely packed daily. will have artist agent evaluate wound after procedure and give recommendations for discharge. pt will need N set up potentially, but she is out of state and staying with family here in [facility]. She is flying back to [place] next Tuesday. 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 Are you ready to quit? N/A. 02558-5 Female 12/27/2024 [facility] Hospitalist Progress Note Patient: VIJAY CURRAN Age: 84 years Legal Sex: FEMALE : 1940 Date of Service 12/26/2024 17:17 PDT Subjective - may, noted wound on left calf with surrounding erythema, painful to touch, however patient resting in bed comfortably, cw iv vanc/zosyn, bcx/wcx-pending, holding aspirin for possible surgical debridement, cw artist agent, ID/Surgeon recs appreciated Vital Signs T: 96.6 [...] 1.4, lactic 0.83 Patient was seen at [facility] urgent care in [facility] telephone number [phone]. Son thinks that they may have done a wound culture thereLast week but has not heard of any results. #Left calf wound with slough and surrounding erythema - had I&D outpatient by a 'surgeon' but patient unfamiliar with providers name, had progressive redness thereafter, failed outpatient po abx, cw iv vanc/zosyn, artist agent, bcx/wcx-pending - consulted ID/Dr. Echevarria, recs appreciated [...] ACBkfst piperacillin-tazobactam 3.375 gm 1 Vial, IVPB, R9T-Ccbgtmrl sodium chloride 0.9%, 10 mL Flush 10 mL, IV FLUSH, Q12H solifenacin 5 mg Tab 5 mg 1 Tab, ORAL, QBedtime vancomycin / D5W 1,000 mg 200 mL, IVPB, C52E-Ldzmwrxn vancomycin pharmacy to dose Rx to Dose, [...] / SWFI 2 gm 50 mL, IVPB, W18Q-Hixlgmae Milk of Magnesia 30 mL 30 mL, ORAL, BID nalOXone 0.4 mg/mL, 1 mL Inj 0.1 mg 0.25 mL, IV PUSH, As directed nitroglycerin 0.4 mg SL Tab #25 0.4 mg 1 Tab, SUBLING, F5V-Nwkgmqrl ondansetron 2 mg/mL, 2 mL Inj 4 [...] depression within a region of pitting edema 80854-4 Female 12/27/2024 [facility] History and Physical Examination Patient: VIJAY [...] 1.4, lactic 0.83 Patient was seen at [facility] urgent care in [facility] telephone number [phone]. 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 They have done culture at [place] urgent care at [phone] culture done in the ER last night [...] Premix), 2 gm = 50 mL, IVPB, Z97N-Taqnuwpo, PRN, Magnesium Replacement, IV SOLN, 12/25/24 23:34:00 PDT, 50 mL/hr, 60 min nalOXone (nalOXone), 0.1 mg, IV PUSH, As directed, Indication = Sedation reversal/rescue, PRN, Sedation, INJ, 12/25/24 23:34:00 PDT nitroglycerin (nitroglycerin), 0.4 mg, SUBLING, R0V-Izbnunkr, PRN, Chest Pain, TAB SUBLING, 12/25/24 23:34:00 PDT, 3 Time(s)/Dose(s), Stop date Limited # of times ondansetron (ondansetron), 4 mg, IV PUSH, Q4H, PRN, Nausea/Vomiting, INJ, 12/25/24 23:34:00 PDT pantoprazole (pantoprazole), 40 mg, ORAL, ACBkfst, EC TAB, 12/26/24 7:30:00 PDT piperacillin-tazobactam (Zosyn), 3.375 gm = 1 Vial, IVPB, C8I-Skcrkoch, Indication= Skin/Soft tissue infxn, necrotizing, VIAL, 12/26/24 [...] mL Premix, 2 gm, 50 mL, IVPB, N22L-Xceobkxn, PRN nalOXone, 0.1 mg, 0.25 mL, IV PUSH, As directed, PRN nitroglycerin, 0.4 mg, 1 Tab, SUBLING, I0Z-Tyddqcrk, PRN ondansetron, 4 mg, 2 mL, IV [...] Signed on: 26-Dec-2024 00:14 PDT 12/26/2024 60 [facility] ED Physician Notes Patient: JEWEL CURRAN [...] Stop date 12/26/24 3:49:38 PDT Completed (Completed) 08331 CBC Auto w Auto Diff ONCE, Stat, [...] Hospitalization/Escalation or De-escalation of Care: Admission to [facility] was deemed appropriate given the failure of outpatient antibiotic therapy and persistent infection. No additional advanced imaging or escalation of care was indicated at this time. Management Discussions with other Healthcare Providers: Dr. Wale Brownlee h ospitalist _ Diagnosis Left lower extremity cellulitis Condition _Guarded Disposition _Admit to [facility] Prescriptions Current medications were reviewed and updated. MSEI Information MSEI MD/VBA PROGRAMMER/PA Time Patient Seen face to face: Date [...] 20:44 PDT) eGFR 88 (12/25/24 20:44 PDT) 01513-8 Female 12/26/2024 [facility] ED Physician Notes Patient: JEWEL CURRAN [...] return precautions discussed. Discussed potential need for payment specialist. Patient will continue with at home wound care and cleaning with topical mupirocin as well. Prescribed Medications 12/21/2024 15:39 PDT clindamycin 300 mg oral capsule, = 1 Cap, ORAL, TID, X 7 Day(s), # 21 Cap, Indication= Skin/Soft tissue infxn, nonpurulent, 0 Refill(s), Acute, Pharmacy: [id number], 157.5, cm, 01/19/24 1:08:00 PDT, Height/Length (cm), 56.8, kg, 12/20/24 11:24:00 PDT, Dose calculation weight... 13974-1 Female 12/21/2024 [facility] ED Physician Notes Patient: JEWEL CURRAN [...] tissue infxn, nonpurulent, 0 Refill(s), Acute, [id number] 157.5, cm, 01/19/24 1:08:00 PDT, Height/Length (cm), 56.8, kg, 12/20/24 11:24:00 PDT, Dose calculation weight... 12/20/2024 12:06 PDT mupirocin topical 2% ointment, 1 Applic, TOP, TID, # 22 gm, 0 Refill(s), Maintenance, Pharmacy: [facility]/pharmacy #[id number], 157.5, cm, 01/19/24 1:08:00 PDT, Height/Length [...] emergency department for reevaluation. MSEI Information DAVI MD/VBA PROGRAMMER/PA Time Patient Seen face to face: Date [...] and accept responsibility for the patient's treatment. 66841-5 Female 12/20/2024 [facility] Neurology Consult note Patient: VIJAY CURRAN ? Age: 83 years Legal Sex: FEMALE : 1940 Chief Complaint BIB family c/o difficulty speaking at 1999, was unable to complete a sentence. AOx3, unsure of year, Resp E/U, pt asking repetitive questions. 10/10 shoulder pain since last night. Baseline AOx4. Reason for Consultation TIA/Stroke History of Present Illness Patient is an 83-year-old female visiting from [place] with a past medical history of TIAs [...] Wt.) W T: 7 3.9 kg B AL: 2 9.79 kg/m2 MENTAL STATUS EXAM: Awake [...] Q1HR, PRN Rocephin, 1 gm, IV PUSH, F49K-Qykamywe Sodium Chloride 0.9% IV Tubing Flush (ONE) [...] Clear 01/18/24 21:10 PDT UA - Specific [place] 1.030 (ABNORMAL) 01/18/24 21:10 PDT UA - [...] ready to quit? No. Electronically signed by: [facility] Katherine A Signed on: 19-Jan-2024 12:28 PDT 01/19/2024 60 [facility] Neurology Consultation Patient: VIJAY CURRAN Age: 83 years Legal Sex: FEMALE : 1940 Chief Complaint BIB family c/o difficulty speaking at 1999, was unable to complete a sentence. AOx3, unsure of year, Resp E/U, pt asking repetitive questions. 10/10 shoulder pain since last night. Baseline AOx4. Reason for Consultation TIA/Stroke History of Present Illness Patient is an 83-year-old female visiting from [place] with a past medical history of TIAs [...] Q1HR, PRN Rocephin, 1 gm, IV PUSH, N05T-Obcgkegj Sodium Chloride 0.9% IV Tubing Flush (ONE) [...] Clear 01/18/24 21:10 PDT UA - Specific [place] 1.030 (ABNORMAL) 01/18/24 21:10 PDT UA - [...] neg. Reviewed with Dr. Garcia. Clear to [place] home from [facility]. Thank u for the kind consult. [id number] Female 01/19/2024 [facility] Progress note Patient: VIJAY CURRAN ? Age: [...] Wt.) W T: 7 3.9 kg B AL: 2 9.79 kg/m2 Intake and Output a [...] Clear 01/18/24 21:10 PDT UA - Specific [place] 1.030 (ABNORMAL) 01/18/24 21:10 PDT UA - [...] this document may have been created using [employer] and may contain mistakes. Electronically signed by: MD Jose, [id number] Signed on: 19-Jan-2024 11:33 PDT 01/19/2024 60 [facility] Progress Note Patient: JEWEL CURRAN Age: [...] Clear 01/18/24 21:10 PDT UA - Specific [place] 1.030 (ABNORMAL) 01/18/24 21:10 PDT UA - [...] this document may have been created using [employer] and may contain mistakes. [id number] Female 01/19/2024 [facility] Neurology Consultation Patient: VIJAY CURRAN Age: 83 years Legal Sex: FEMALE : 1940 _ Acute TeleNeurology Phone Consult Note Site: [facility] Patient Name: VIJAY CURRAN Patient : 1940 Consult Date: 01/18/2024 21:07:48 Time Paged: 2027 Time Called Back: 2027 [note paged to non-working line multiple times, but then was connected by EMAIL MARKETING ASSISTANT] Phone only consult requested/approved by consulting physician. History per EMR and/or referring physician report. Reason for Consult: AMS Summary: 83 Years old Female per ER note: 'Patient is 83 years old, currently visiting the area from [place], with a history of TIAs, on baby [...] otherwise: - need additional history - basic aykbn-xxynifrsw-vdkkxuyehj workup as appropriate per ER/primary team - [...] minutes Signed: Mandeep Sebastian MD [facility] [id number] Female 01/19/2024 [facility] ED Physician Notes Patient: JEWEL CURRAN [...] years old, currently visiting the area from [place], with a history of TIAs, on baby [...] mL, IVPB, ONCE Order Profile Completed (Completed) [id number] CBC Auto w Auto Diff ONCE, Stat, [...] 01/18/24 20:32:30 PDT, RT, Routine, 01/18/24 20:32:30 /[place] POC PT/INR Panel Blood, Collected Y/N, 01/18/24 20:31:14 PDT, RT, Routine, 01/18/24 20:31:14 /[place] Partial Thromboplastin Time PTT 01/18/24 20:28:00 PDT, [...] more distal vessel in accordance with [place] Symptomatic Carotid Endarterectomy Trial (NASCET). If you [...] were reviewed and updated. MSEI Information MSEI MD/VBA PROGRAMMER/PA Time Patient Seen face to face: Date [...] 20:40 PDT) MDW 19.1 (01/18/24 20:40 PDT) 85953-7 Female 01/19/2024 [facility] Discharge Summaries Results Value Date Source [...] 1.4, lactic 0.83 Patient was seen at [facility] urgent care in [facility] telephone number [phone]. Son thinks that they may have done a wound culture thereLast week but has not heard of any results. #Left calf wound with slough and surrounding erythema s/p I&D on 12/27 - had I&D outpatient by a 'surgeon' but patient unfamiliar with providers name, had progressive redness thereafter, failed outpatient po abx, cw iv vanc/zosyn, artist agent, bcx-ngtd, follow cultures - consulted ID/Dr. Echevarria rectania appreciated- iv vanc/zosyn, tbd, cleared for discharge on po doxy 100 mg bid and keflex 500 mg qid x 7 days total - consulted Surgeon/kimberly Patel appreciated-I&D on 12/27, will need to see plastic surgery for reconstruction, wound care center outpatient for follow up, outpatient follow up - CM referral for home health artist agent #Hx of TIA - holding aspirin for [...] prescribed, please continue wound care per [facility], please follow up as instructed [...] capsule)1 Capsules Oral DAILY. Refills: 0. Unchanged [id number] Milligram Oral EVERY MORNING. [id number] Milligram Oral DAILY. solifenacin (solifenacin 5 mg [...] Coordinating Discharge >35 mins spent on discharge [id number] Female 12/28/2024 [facility] Discharge Summary Patient: JEWEL CURRAN Age: 83 [...] 157.5 cm WT: 73.9 kg BMI: 29.79 kg/z2Sklpdqv Appearance: No acute distress. ANO x 3 [...] to 2 weeks Address: Patient Focused Neurology [address] [place] [phone]- [facility] (1) Provider: UNABLE TO OBTAIN PROVIDER Date: Within 1 to 2 weeks Time Spent Coordinating Discharge More than 30 minutes [id number] Female 01/20/2024 [facility] History and Physicals Results Value Date Source Hospitalist Admission H&P 12/26/2024 Ad [facility] History and Physical Patient: DO ISAAC CURRAN [...] 1.4, lactic 0.83 Patient was seen at [facility] urgent care in [facility] telephone number [phone]. 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 They have done culture at [place] urgent care at [phone] culture done in the ER last night [...] Premix), 2 gm = 50 mL, IVPB, L13L-Cobyncub, PRN, Magnesium Replacement, IV SOLN, 12/25/24:34:00 PDT, 50 mL/hr, 60 min nalOXone (nalOXone), 0.1 mg, IV PUSH, As directed, Indication = Sedation reversal/rescue, PRN, Sedation, INJ, 12/25/24:34:00 PDT nitroglycerin (nitroglycerin), 0.4 mg, SUBLING, V1B-Krsefnal, PRN, Chest Pain, TAB SUBLING, 12/25/24 23:34:00 PDT, 3 Time(s)/Dose(s), Stop date Limited # of times ondansetron (ondansetron), 4 mg, IV PUSH, Q4H, PRN, Nausea/Vomiting, INJ, 12/25/24 23:34:00 PDT pantoprazole (pantoprazole), 40 mg, ORAL, ACBkfst, EC TAB, 12/26/24 7:30:00 PDT piperacillin-tazobactam (Zosyn), 3.375 gm = 1 Vial, IVPB, O1R-Pjawunwc, Indication= Skin/Soft tissue infxn, necrotizing, VIAL, 12/26/24 [...] mL Premix, 2 gm, 50 mL, IVPB, X22X-Ychyypof, PRN nalOXone, 0.1 mg, 0.25 mL, IV PUSH, As directed, PRN nitroglycerin, 0.4 mg, 1 Tab, SUBLING, P4T-Afcicyez, PRN ondansetron, 4 mg, 2 mL, IV [...] Results No Qualifying Data No Qualifying Data [id number] Female 12/26/2024 [facility] Hospitalist Admission H&P 01/19/2024 Ad [facility] History and Physical Patient: DO ISAAC CURRAN [...] Patient is an 83-year-old female visiting from [place] with a past medical history of TIA [...] Ordered: Admission Status Difficulty speaking (Difficulty speaking, [id number]) Orders: aspirin (aspirin), 81 mg, CHEW, DAILY, [...] this document may have been created using [employer] and may contain mistakes. Signature [...] Clear 01/18/24 21:10 PDT UA - Specific [place] 1.030 (ABNORMAL) 01/18/24 21:10 PDT UA - [...] more distal vessel in accordance with [place] Symptomatic Carotid Endarterectomy Trial (NASCET). If you [...] Swetha, Mary Jane Leung Hsjw 01/18/2024 21:12:29 [id number] Female 01/19/2024 [facility] Vital Signs Vital Sign Value Date Comments Source Temperature (F) 98.0 [degF] [facility] Sy[facility] 148 mm[Hg] 01/01/2025 60 [facility] Diastolic BP 81 mm[Hg] 01/01/2025 60 [facility] Peripheral Pulse Rate 71 bpm 01/01/2025 60 [facility] Respiratory rate 17 br/min 01/01/2025 [facility] Pulse Oximetry 98 % 01/01/[address] [facility] Temperature (F) 97.9 [degF] 01/01/2025 [facility] Systolic BP 153 mm[Hg] 01/01/[address] [facility] Diastolic BP 73 mm[Hg] 01/01/[address] [facility] Dose calculation weight (kg) 60.1 kg 01/01/2025 60 [facility] Respiratory rate 18 br/min 01/01/2025 [facility] Weight (kg) 60.1 kg 01/01/[address] [facility] Peripheral Pulse Rate 76 bpm 01/01/2025 60 [facility] Pulse Oximetry 97 % 01/01/2025 [facility] Peripheral Pulse Rate 70 bpm 12/28/2024 60 [facility] Temperature (F) 98.5 [degF] 12/28/2024 [facility] Respiratory rate 16 br/min 12/28/2024 [facility] Systolic BP 119 mm[Hg] 12/28/2024 60 [facility] Diastolic BP 60 mm[Hg] 12/28/2024 60 [facility] Pulse Oximetry 95 % 12/28/[address] [facility] Respiratory rate 18 br/min 12/28/2024 [facility] Peripheral Pulse Rate 70 bpm 12/28/2024 60 [facility] Temperature (F) 97.5 [degF] 12/28/2024 60 [facility] [place] Pulse Oximetry 99 % 12/28/[address] [facility] Systolic BP 121 mm[Hg] 12/28/2024 60 [facility] Diastolic BP 54 mm[Hg] 12/28/2024 60 [facility] Temperature (F) 98.3 [degF] 12/28/2024 60 [facility] [place] Pulse Oximetry 95 % 12/28/[address] [facility] Peripheral Pulse Rate 75 bpm 12/28/2024 60 [facility] Respiratory rate 18 br/min 12/28/2024 60 [facility] Systolic BP 129 mm[Hg] 12/28/2024 60 [facility] Diastolic BP 66 mm[Hg] 12/28/2024 60 [facility] Heart Rate Monitored 82 bpm 12/28/2024 60 [facility] [place] Heart Rate Monitored 78 bpm 12/28/2024 60 [facility] Mean BP 98 mm[Hg] 12/28/2024 60 [facility] Heart Rate Monitored 77 bpm 12/27/2024 60 [facility] [place] Mean BP 95 mm[Hg] 12/27/2024 60 [facility] Mean BP 96 mm[Hg] 12/27/2024 60 [facility] O[facility] flow 10 L/min 12/27/2024 60 [facility] Weight (kg) 65.4 kg 12/26/2024 60 [facility] Dose calculation weight (kg) 65.4 kg 12/26/2024 60 [facility] Body Mass Index 26.37 kg/m2 12/26/2024 60 [facility] [place] HeightLength (cm) 157.48 cm 12/26/2024 60 [facility] [place] Dose calculation weight (kg) 65.4 kg 12/26/2024 60 [facility] Weight (kg) 65.4 kg 12/26/2024 60 [facility] Systolic BP 141 mm[Hg] 12/20/2024 60 [facility] Diastolic BP 69 mm[Hg] 12/20/2024 60 [facility] Pulse Oximetry 98 % 12/20/2024 60 [facility] Heart Rate Monitored 75 bpm 12/20/2024 60 [facility] [place] Respiratory rate 18 br/min 12/20/2024 60 [facility] Temperature (F) 98.2 [degF] 12/20/2024 60 [facility] [place] Peripheral Pulse Rate 80 bpm 12/20/2024 60 [facility] Systolic BP 143 mm[Hg] 12/20/2024 60 [facility] Diastolic BP 70 mm[Hg] 12/20/2024 60 [facility] Dose calculation weight (kg) 56.8 kg 12/20/2024 60 [facility] Respiratory rate 20 br/min 12/20/2024 60 [facility] [place] Weight (kg) 56.8 kg 12/20/2024 60 [facility] Pulse Oximetry 98 % 12/20/2024 60 [facility] Temperature (F) 97.4 [degF] 01/19/2024 60 [facility] [place] Peripheral Pulse Rate 84 bpm 01/19/2024 60 [facility] Respiratory rate 18 br/min 01/19/2024 60 [facility] [place] Systolic BP 128 mm[Hg] 01/19/2024 60 [facility] Diastolic BP 71 mm[Hg] 01/19/2024 60 [facility] Pulse Oximetry 95 % 01/19/[address] [facility] Temperature (F) 97.4 [degF] 01/19/2024 60 [facility] Pulse Oximetry 97 % 01/19/[address] [facility] [place] Peripheral Pulse Rate 76 bpm 01/19/2024 60 [facility] Systolic BP 138 mm[Hg] 01/19/[address] [facility] Diastolic BP 71 mm[Hg] 01/19/[address] [facility] Respiratory rate 18 br/min 01/19/2024 60 [facility] Temperature (F) 97.8 [degF] 01/19/2024 [facility] Peripheral Pulse Rate 84 bpm 01/19/2024 60 [facility] Systolic BP 137 mm[Hg] 01/19/[address] [facility] Diastolic BP 72 mm[Hg] 01/19/[address] [facility] Pulse Oximetry 97 % 01/19/2024 60 [facility] Respiratory rate 18 br/min 01/19/2024 60 [facility] HeightLength (cm) 157.5 cm 01/19/2024 60 [facility] [place] Weight (kg) 73.9 kg 01/19/2024 60 [facility] Body Mass Index 29.79 kg/m2 01/19/2024 60 [facility] Dose calculation weight (kg) 73.9 kg 01/19/2024 60 [facility] Heart Rate Monitored 77 bpm 01/19/2024 60 [facility] Heart Rate Monitored 72 bpm 01/19/2024 60 [facility] Heart Rate Monitored 77 bpm 01/19/2024 60 [facility] Weight (kg) 65.5 kg 01/19/2024 60 [facility] Dose calculation weight (kg) 65.5 kg 01/19/2024 60 [facility] Encounters Location Location Details Encounter Type Encounter Number Reason For Visit Attending Provider ADM Date DC Date Status Source 60 60 [facility] Observation [id number] AMS (ALTERED MENTAL SATUS) [facility] [place] 01/18 Active [facility] 60 60 [facility] Emergency [id number] SORE ON LEG Mary Jane Sun 12/20 Active [facility] SVPN- SVPN- Clinic Non Office [id number] Brianne Liu 12/25 Active [facility] 60 60 [facility] Inpatient [id number] BREAST CANCER IN FEMALE, TIA, HISTORY OF ASTMA, NECROTIZ ING CELLULIT IS, HTN Santiago Alcantar 12/26 Active [facility] 60 60 [facility] Emergency [id number] LEFT LEG WOUND EVALUATI ON Jesse Braga 01/01 Active [facility] Procedures Procedure Code Date Perfomer Comments Source ROUTINE VENIPUNCTURE [id number] 12/28/2024 60 [facility] EXTREMITY LOWER INCISION AND DRAINAGE DEBRIDEMENT (Left)<sup>1</sup> 12/27/2024 auto-populate d from documented surgical case 60 [facility] ROUTINE VENIPUNCTURE [id number] 12/27/2024 60 [facility] ROUTINE VENIPUNCTURE [id number] 12/26/2024 60 [facility] ROUTINE VENIPUNCTURE 79326 12/26/2024 60 [facility] ROUTINE VENIPUNCTURE 03407 12/26/2024 60 [facility] ROUTINE VENIPUNCTURE [id number] 01/19/2024 60 [facility] Plan of Care Plan of Care Date Source Extracted from:Title: Hospit alist Discharge Note Author: MD Ortiz, Santiago S Date: 12/28/24 Procedures Performed This Encounter: Date and Time: 0 12/27/2024 15:55 Procedure Performed: E XTREMITY LOWER INCISION AND DRAINAGE DE, Left Performed by: Олег simons MD, Brianne Gloria ? ? stable Discharge Date: 12/28/24 [facility] Follow-Up Plans: [facility] PCP, Surgeon/Dr. Liu, Wound Care team, and Plastic Surgeon within 2 weeks from discharge Discharge Care Instructions: p lease complete antibiotic regimen as prescribed, please continue wound care per [facility], please follow up as instructed for ongoing wound care and monitoring for optimal wound healing Discharge Activity: A ctivity As Tolerated Discharge Diet: R egular Diet Diagnostic Tests PendingCulture Anaerobic 12/27/24Culture Anaerobic 12/27/24 12/29/[address] [facility] Fe[employer] rolly [employer] Social History Date Source Social History TypeResponse Smoking Status Is there a smoker in the household? No; *Do you have concerns about tobacco use in household? No; Never (less than 100 in lifetime); Never; *Are you ready to quit? N/A entered on: 12/26/24 Sex Female Sex Representation Female (finding) 01/01/2025 [facility] Social History TypeResponse Smoking Status Is there a smoker in the household? No; *Do you have concerns about tobacco use in household? No; Never (less than 100 in lifetime); Never; *Are you ready to quit? N/A entered on: 12/26/24 Sex Female Sex Representation Female (finding) 01/01/2025 [facility] Social History TypeResponse Smoking Status Is there a smoker in the household? No; *Do you have concerns about tobacco use in household? No; Never (less than 100 in lifetime); Never; *Are you ready to quit? N/A entered on: 12/26/24 Sex Female Sex Representation Female (finding) 01/01/2025 60 [facility] [employer] Social History TypeResponse Smoking Status Is there a smoker in the household? No; *Do you have concerns about tobacco use in household? No; Never (less than 100 in lifetime); Never; *Are you ready to quit? N/A entered on: 12/26/24 Sex Female Sex Representation Female (finding) 01/01/2025 60 [facility] [employer] Social History TypeResponse Smoking Status Is there a smoker in the household? No; *Do you have concerns about tobacco use in household? No; Never (less than 100 in lifetime); Never; *Are you ready to quit? N/A entered on: 12/26/24 Sex Female Sex Representation Female (finding) 12/29/2024 [facility] Social History TypeResponse Smoking Status Is there a smoker in the household? No; *Do you have concerns about tobacco use in household? No; Never (less than 100 in lifetime); Never; *Are you ready to quit? N/A entered on: 12/26/24 Sex Female Sex Representation Female (finding) 12/29/2024 60 [facility] [employer] Social History TypeResponse Smoking Status Is there a smoker in the household? No; *Do you have concerns about tobacco use in household? No; Never (less than 100 in lifetime); Never; *Are you ready to quit? N/A entered on: 12/26/24 Sex Female Sex Representation Female (finding) 12/29/2024 60 [facility] [employer] Social History TypeResponse Smoking Status Is there a smoker in the household? No; *Do you have concerns about tobacco use in household? No; Never (less than 100 in lifetime); Never; *Are you ready to quit? N/A entered on: 12/26/24 Sex Female Sex Representation Female (finding) 12/26/2024 60 [facility] [employer] Social History TypeResponse Smoking Status Is there a smoker in the household? No; *Do you have concerns about tobacco use in household? No; Never (less than 100 in lifetime); Never; *Are you ready to quit? N/A entered on: 12/26/24 Sex Female Sex Representation Female (finding) 12/26/2024 60 [facility] [employer] Social History TypeResponse Smoking Status Is there a smoker in the household? No; *Do you have concerns about tobacco use in household? No; Never (less than 100 in lifetime); Never; *Are you ready to quit? N/A entered on: 12/26/24 Sex Female Sex Representation Female (finding) 12/26/2024 60 [facility] [employer] Social History TypeResponse Smoking Status Is there a smoker in the household? No; *Do you have concerns about tobacco use in household? No; Never (less than 100 in lifetime); Never; *Are you ready to quit? N/A entered on: 12/26/24 Sex Female Sex Representation Female (finding) 12/26/2024 60 [facility] [employer] Social History TypeResponse Smoking Status Is there a smoker in the household? No; *Do you have concerns about tobacco use in household? No; Never (less than 100 in lifetime); Never; *Are you ready to quit? No entered on: 01/19/24 Sex Female Sex Representation Female (finding) 12/20/2024 [facility] Social History TypeResponse Smoking Status Is there a smoker in the household? No; *Do you have concerns about tobacco use in household? No; Never (less than 100 in lifetime); Never; *Are you ready to quit? No entered on: 01/19/24 Sex Female Sex Representation Female (finding) 12/20/[address] [facility] [employer] Social History TypeResponse Smoking Status Is there a smoker in the household? No; *Do you have concerns about tobacco use in household? No; Never (less than 100 in lifetime); Never; *Are you ready to quit? No entered on: 01/19/24 Sex Female Sex Representation Female (finding) 12/20/[address] [facility] Social History TypeResponse Smoking Status Is there a smoker in the household? No; *Do you have concerns about tobacco use in household? No; Never (less than 100 in lifetime); Never; *Are you ready to quit? No entered on: 01/19/24 Sex Female 60 [facility] [employer] Social History TypeResponse Smoking Status Is there a smoker in the household? No; *Do you have concerns about tobacco use in household? No; Never (less than 100 in lifetime); Never; *Are you ready to quit? No entered on: 01/19/24 Sex Female 60 [facility] [employer] Social History TypeResponse Smoking Status Is there a smoker in the household? No; *Do you have concerns about tobacco use in household? No; Never (less than 100 in lifetime); Never; *Are you ready to quit? No entered on: 01/19/24 Sex Female Sex Representation Female (finding) 01/19/2024 60 [facility] [employer] Social History TypeResponse Smoking Status Is there a smoker in the household? No; *Do you have concerns about tobacco use in household? No; Never (less than 100 in lifetime); Never; *Are you ready to quit? No entered on: 01/19/24 Sex Female Sex Representation Female (finding) 01/19/[address] [facility] Amaya lofton
--- NOTE | ~2025-04-10 | MM_ITS ---
EXAMINATION: MM DIAGNOSTIC DIGITAL BREAST TOMOSYNTHESIS, BILATERAL CLINICAL INFORMATION: History of bilateral breast cancer left in 2023 post lumpectomy. Right breast cancer in 2007. COMPARISON: Mammography: Comparison is made with relevant prior exams. TECHNIQUE: Digital breast mammography with tomosynthesis is performed in both the craniocaudal and mediolateral oblique views along with computer-aided detection (CAD). FINDINGS: There are scattered areas of fibroglandular density (ACR BI-RADS breast composition Category b). Bilateral postsurgical changes are stable. Right marker clip. There are no significant masses, abnormal calcifications, or other abnormalities. Results are provided to the patient at time of visit by the technologist. MM/MM tomosynthesis diagnostic BI IMPRESSION: No mammographic evidence of malignancy. ASSESSMENT: BI-RADS BI-RADS 2 - Benign Findings RECOMMENDATION: 1 year F/U This patient's information was entered into a reminder system with a target due date for their next mammogram. Electronically signed by: Jada Brewer DO 04/10/2025 12:44 PM EDT
--- OUTSIDE RECORDS SUMMARY | 2025-04-10 11:42 | XMS_ITS | Clinical Summary ---
Author Organization [facility] be[facility] & [facility] lin Address [address] [facility] [place] [address] Care Team Providers Care Account Manager Relief Name Role Phone Unavailable Primary Care Provider [...] Adults 18 yrs or above (or HM Modifier)([facility]) 1958 SDOH Screening Reminder: Annika hameed for all adults ([facility]) 1958 Tobacco Smoking Cessation: i n Adults excluding Women: Behavioral and Pharmacotherapy Interventions ([facility]) 1959 DTaP/Tdap/Td Vaccines ([facility]) (1 - Tdap) 1960 Pneumococcal Vaccination Scr eening: Patients 50+ yrs of age ([facility]) (1 of 1 - PCV) 1991 Zoster/Shingles Vaccine Seri es Screening: Adults aged 18+ yrs (or HM Modifiers)([facility]) (1 of 2) 1991 Osteoporosis Screening to Pr event Fractures: Women aged 65 years+ ([facility]) 2006 RSV Vaccines (1 - 1-dose 75+ series) 2016 COVID-19 Vaccine Screening: Initial Series and Booster Status ([facility]) ( - 2023- season) 2024 Flu Vaccination: Ages 65+: Y early High Dose Recommended (or Modifier)([facility]) 04/12/2025 Medical Devices Not on file Insurance ([place]) [address] [place], [place] [address] [facility]
--- OUTSIDE RECORDS SUMMARY | 2025-04-10 11:42 | XMS_ITS | Encounter Summary ---
Author Organization [facility] Address [address] [facility] [address] [place] [address] Phone Care Team Providers Care Marble Installation Helper Name Role Phone Maine Vincent MD Primary Care Pro vider Encounter Details Date Type Department Care Team (Late st Contact Info) Description 11/12/2019 Procedure Pass [facility] PERIOPERATIVE DEPT [address] [place] [id number] Social History Tobacco Use Types Packs/Day Years Used Date Smoking Tobacco: Never Smokeless Tobacco: Never Alcohol Use Standard Drinks/Week Comments Never 0 (1 standard drink = 0.6 oz pur e alcohol) Comments No Sex and Gender Information Value Date Recorded Sex Assigned at Not on file Legal Sex Female 7:31 PM EST Gender Identity Not on file Sexual Orientation Not on file documented as of this encounter Plan of Treatment Not on file documented as of this encounter Visit Diagnoses Not on filedocumented in this encounter Care Teams Marble Installation Helper Relationship Specialty Start Date End Date Maine Vincent MD [address] [facility] [place] [address] PCP - General Internal Medicine 01/22/19 documented as of this encounter Additional Source Comments The information contained in this document represents components of the legal health record. It is not the complete legal health record.[facility]
--- OUTSIDE RECORDS SUMMARY | 2025-04-10 11:42 | XMS_ITS | Clinical Summary ---
Author Organization 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
== END 2025-04-10 10:44 | disposition home or self-care (01) ==
LOC: HO.MAMMO 10:43
PROVIDERS: PCP Internal Medicine; Visit Provider Surgery
DX: Z85.3 Personal history of malignant neoplasm of breast (principal)
CPT/HCPCS: 77062; 77066

== ENCOUNTER → 2025-04-10 11:00 | Outpatient (BNV) | payer MEDICARE, OTHER, SELFPAY | PROVIDERS: PCP Internal Medicine; Visit Provider Internal Medicine | DX: Z85.3 Personal history of malignant neoplasm of breast (principal) | CPT/HCPCS: 77066; G0279 ==

== ENCOUNTER 2025-05-02 12:40 | Outpatient (REF) | payer MEDICARE, OTHER, SELFPAY ==
--- NOTE | ~2025-05-02 | US_ITS ---
EXAMINATION: US RIGHT GROIN CLINICAL INFORMATION: Recent common femoral artery percutaneous access for angiography , left groin plus COMPARISON: None available. TECHNIQUE: Doppler spectral analysis and color flow Doppler imaging was performed in the right groin. FINDINGS: Right: There is a hypoechoic area measuring 18 mm diameter anterior to the common femoral artery with no internal blood flow. However, there is a 4 mm wide neck with purulent blood flow. There is a hypoechoic area with low-level internal echogenicity and increased through transmission measuring 6.4 x 6.9 x 2.8 cm. 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 The 4 mm wide necked demonstrates turbulent blood flow. Complex fluid collection in the right inguinal region measuring 6.4 x 6.9 x 2.8 cm could represent abscess, seroma, and/or hematoma. Electronically signed by: Galindo Rodriguez MD 05/02/2025 03:19 PM EDT
== END 2025-05-02 12:41 | disposition home or self-care (01) ==
LOC: HO.US 12:40
PROVIDERS: PCP Internal Medicine; Visit Provider Student in an Organized Health Care Education/Training Program
DX: I87.2 Venous insufficiency (chronic) (peripheral) (principal); I72.4 Aneurysm of artery of lower extremity
CPT/HCPCS: 93925

== ENCOUNTER → 2025-05-02 13:45 | Outpatient (BNV) | payer MEDICARE, OTHER, SELFPAY | PROVIDERS: PCP Internal Medicine; Visit Provider Radiology Diagnostic Radiology | DX: I77.77 Dissection of artery of lower extremity (principal) | CPT/HCPCS: 93925 ==

== ENCOUNTER 2025-05-02 14:26 | Emergency (ER) | payer MEDICARE, OTHER, SELFPAY ==
--- OUTSIDE RECORDS SUMMARY | 2025-03-13 14:18 | XMS_ITS | Continuity of Care Document ---
Author Name [facility] Organization [facility] Care Team Providers Care Bulb Filler Name Role Phone [facility] Unavailable Unavailable Problems Problem Status Onset Date Classification Date Reported Comments Source Cellulitis, unspecified Active 12/25/2024 [facility] Essential (primary) hypertension Active 12/25/2024 [facility] Transient cerebral ischemic attack, unsp Active 12/25/2024 [facility] Personal history of other diseases of th Active 12/25/2024 [facility] Malignant neoplasm of unspecified site o Active 12/25/2024 [facility] Altered mental status, unspecified Active 01/18/2024 [facility] Cellulitis of unspecified part of limb Active [facility] Cutaneous abscess of left lower limb Active [facility] Medications Medication Details Route Status Patient Instructions Ordering Provider Order Date Source collagenase topical 250 units/g ointment 1 Applic, TOP, DAILY, # 30 gm, 0 Refill(s), Acute, [id number] 157.48, cm, 12/26/24 1:27:00 PDT, Height/Length (cm), 60.1, kg, 01/01/25 12:07:00 PDT, Dose calculation weight (kg) Active [place] [address] [facility] 1 inch iodoform packing material 1 inch iodoform packing material, See Instructions, Please dispense 1 container of 1 inch iodoform packing. Directions, change out packing daily., # 1 ea, 0 Refill(s), Maintenance, Pharmacy: [id number], Supply, 157.48, cm, 12/26/24 1:27:00 PDT, Height/Length (cm), 60.1, kg, 01/01/25 12:07:00 PDT, Dose calculation weight (kg) Active [place] 60 [facility] 1 inch iodoform dressing 1 inch iodoform dressing, See Instructions, Please dispense 1 container of 1 inch iodoform dressing. Instructions, change the packing every 24 hours., # 1 ea, 0 Refill(s), Maintenance[id number], 157.48, cm, 12/26/24 1:27:00 PDT, Height/Length (cm), 60.1, kg, 01/01/25 12:07:00 PDT, Dose calculation weight (kg) Active [place] [address] [facility] collagenase topical 250 units/g ointment 1 Applic, TOP, DAILY, # 30 gm, 0 Refill(s), Maintenance, [id number] 157.48, cm, 12/26/24 1:27:00 PDT, Height/Length (cm), 60.1, kg, 01/01/25 12:07:00 PDT, Dose calculation weight (kg) Active [place] 60 [facility] doxycycline hyclate 100 mg oral capsule = 1 Cap, ORAL, BID, X 7 Day(s), # 14 Cap, Indication= Skin/Soft tissue infxn, nonpurulent, 0 Refill(s), Acute, [id number] 157.48, cm, 12/26/24 1:27:00 PDT, Height/Length (cm), 65.4, kg, 12/26/24 1:27:00 PDT, Dose calculation weight (kg) Active [place] 60 [facility] Keflex 500 mg oral capsule = 1 Cap, ORAL, QID, X 7 Day(s), # 28 Cap, Indication= Skin/Soft tissue infxn, nonpurulent, 0 Refill(s), Acute, Pharmacy: [id number], 157.48, cm, 12/26/24 1:27:00 PDT, Height/Length (cm), 65.4, kg, 12/26/24 1:27:00 PDT, Dose calculation weight (kg) Active [place] [address] [facility] zinc sulfate 220 mg oral capsule = 1 Cap, ORAL, DAILY, # 30 Cap, 0 Refill(s), Maintenance, [id number], 157.48, cm, 12/26/24 1:27:00 PDT, Height/Length (cm), 65.4, kg, 12/26/24 1:27:00 PDT, Dose calculation weight (kg) Active [facility] 60 [facility] Santyl 250 units/g topical ointment 1 Applic, TOP, DAILY, # 30 gm, 0 Refill(s), Acute, [id number], 157.48, cm, 12/26/24 1:27:00 PDT, Height/Length (cm), 65.4, kg, 12/26/24 1:27:00 PDT, Dose calculation weight (kg) Active [facility] Vitamin C 500 mg oral tablet = 1 Tab, ORAL, BID, # 60 Tab, 0 Refill(s), Maintenance, [id number], 157.48, cm, 12/26/24 1:27:00 PDT, Height/Length (cm), 65.4, kg, 12/26/24 1:27:00 PDT, Dose calculation weight (kg) Active [facility] solifenacin 5 mg oral tablet = 1 Tab, ORAL, QBedtime, 0 Refill(s), Maintenance Active [facility] [address] [facility] lisinopril 40 mg, ORAL, DAILY, 0 Refill(s), Maintenance Active [facility] [address] [facility] levoFLOXacin 750 mg oral tablet = 1 Tab, ORAL, Q24H, X 7 Day(s), # 7 Tab, Indication= Skin/Soft tissue infxn, nonpurulent, 0 Refill(s), Acute, Pharmacy: [id number], 157.5, cm, 01/19/24 1:08:00 PDT, Height/Length (cm), 56.8, kg, 12/20/24 11:24:00 PDT, Dose calculation weight (kg) Active [place] 60 [facility] mupirocin topical 2% ointment 1 Applic, TOP, TID, # 22 gm, 0 Refill(s), Maintenance, Pharmacy: [facility] #[id number], 157.5, cm, 01/19/24 1:08:00 PDT, Height/Length (cm), 56.8, kg, 12/20/24 11:24:00 PDT, Dose calculation weight (kg) Active [place] [address] [facility] Keflex 500 mg oral capsule = 1 Cap, ORAL, Q8H, X 3 Day(s), # 9 Cap, Indication= UTI, complicated, 0 Refill(s), Acute, Pharmacy: [facility] [id number] [facility] [employer], 157.5, cm, 01/19/24 1:08:00 PDT, Height/Length (cm), 73.9, kg, 01/19/24 1:08:00 PDT, Dose calculation weight (kg) Active [address] [facility] aspirin 81 mg, ORAL, QMorning, 0 Refill(s), Maintenance Active [place] [address] [facility] Allergies, Adverse Reactions, Alerts Substance Category Reaction Severity Reaction type Status Date Reported Comments Source sulfa drugs Assertion Drug allergy Active 60 [facility] Contrast Dye Assertion Itching (finding) Drug allergy Active 60 [facility] Tape Assertion Eruption of skin (disorder) Drug allergy Active 60 [facility] statins Assertion Drug allergy Active 60 [facility] Results Order Name Results Value Reference Range Date Interpretation Comments Source AutoDiff* Auto Neutrophil Percent 86.7 % 49.4 - 72.6 12/[address] [facility] AutoDiff* Auto Neutrophil Absolute 15.4 K/uL 2.0 - 6.4 12/[address] [facility] AutoDiff* Auto Lymphocyte Percent 7.3 % 18.0 - 40.0 12/[address] [facility] AutoDiff* Auto Lymphocyte Absolute 1.3 K/uL 1.5 - 3.0 12/[address] [facility] AutoDiff* Auto Monocyte Percent 3.9 % 4.9 - 10.1 12/[address] [facility] AutoDiff* Auto Monocyte Absolute 0.7 K/uL 0.3 - 0.8 12/[address] [facility] AutoDiff* Auto Eosinophil Percent 0.6 % 0.0 - 5.0 12/[address] [facility] AutoDiff* Auto Eosinophil Absolute 0.1 K/uL 0.0 - 0.4 12/[address] [facility] AutoDiff* Auto Basophil Percent 1.5 % 0.2 - 1.2 12/[address] [facility] AutoDiff* Auto Basophil Absolute 0.3 K/uL 0.0 - 0.1 12/[address] [facility] AutoDiff* Auto NRBC % 0 % 12/[address] [facility] AutoDiff* Sex assigned at Female 12/28 [facility] CBC WBC 17.8 K/uL 3.7 - 10.5 12/[address] [facility] CBC RBC 5.79 M/uL 3.61 - 5.37 12/[address] [facility] CBC HGB 12.1 g/dL 11.2 - 15.8 12/28 [facility] CBC HCT 38.5 % 32.9 - 49.0 12/28 [facility] CBC MCV 66.5 fL 80.1 - 99.2 12/[address] [facility] CBC MCH 20.9 pg 25.8 - 33.5 12/[address] [facility] CBC MCHC 31.5 g/dL 31.0 - 37.0 12/[address] [facility] CBC RDW 19.1 % 12.0 - 15.8 12/[address] [facility] CBC PLT 751 K/uL 139 - 422 12/[address] [facility] CBC MPV 8.40 fL 6.84 - 10.28 12/[address] [facility] CBC Sex assigned at Female 12/28 [facility] CBC Manual Diff Y/N MANUAL DIFF 12/[address] [facility] CMP Sodium Level 134 MMOL/L 135 - 145 12/28 L [facility] Potassium Level 4.9 MMOL/L 3.5 - 5.0 12/28 NA [facility] Chloride Level 102 MMOL/L 101 - 111 12/28 NA [facility] CO2/Carbon Dioxide 26 MMOL/L 24 - 32 12/28 NA [facility] Anion Gap 6.0 5.0 - 15.0 12/28 NA [facility] Glucose, Random 98 MG/DL - <=200 12/28 NA [facility] BUN 11 MG/DL 8 - 20 12/28 NA [facility] Creatinine 0.63 MG/DL 0.60 - 1.30 12/28 NA [facility] BUN/Creat Ratio 17.5 12.0 - 20.0 12/28 NA [facility] Osmolality, Calculated 268 mOsm/L 12/28 NA [facility] Calcium Level 8.4 MG/DL 8.4 - 10.2 12/28 NA [facility] Total Protein 5.4 g/dL 6.4 - 8.3 12/28 L [facility] Albumin Level 3.2 g/dL 3.2 - 5.5 12/28 NA [facility] Globulin Level 2.2 g/dL 1.5 - 3.5 12/28 NA [facility] A/G Ratio 1.5 1.1 - 2.2 12/[address] [facility] CMP ALP 68 IU/L 30 - 115 12/[address] [facility] CMP ALT 8 IU/L 5 - 36 12/[address] [facility] CMP AST 14 IU/L 10 - 42 12/28 [facility] Bilirubin, Total 0.3 MG/DL 0.2 - 1.2 12/[address] [facility] CMP eGFR 88 mL/min/1.7 3m2 12/28 NA This eGFR equation utilizes the 2020 CKD-EPI creatinine equation.Stag es GFRNone or slight 1 >90 ml/minMild 2 60-89 ml/minModerat e 3 30-59 ml/minSevere 4 15-29 ml/minApproac julia Failure 5 <15 ml/min [facility] CMP Sex assigned at Female 12/[address] [facility] CRP CRP C-Reactive Protein 2.20 MG/DL 0.00 - 0.90 12/[address] [facility] CRP Sex assigned at Female 12/[address] [facility] MDiff Bands % 2 % 0 - 10 12/[address] [facility] MDiff Manual Neutrophil Percent 81.9 % 49.4 - 72.6 12/[address] [facility] MDiff Manual Neutrophil Absolute 14.9 K/uL 2.0 - 6.4 12/[address] [facility] MDiff Manual Lymphocyte Percent 5.7 % 18.0 - 40.0 12/[address] [facility] MDiff Manual Lymphocyte Absolute 1.0 K/uL 2.0 - 6.4 12/[address] [facility] MDiff Manual Monocyte Percent 4.8 % 4.9 - 10.1 12/[address] [facility] MDiff Manual Monocyte Absolute 0.9 K/uL 0.3 - 0.8 12/[address] [facility] MDiff Manual Eosinophil Percent 0.9 % 0.0 - 5.0 12/[address] [facility] MDiff Manual Eosinophil Absolute 0.2 K/uL 0.0 - 0.4 12/[address] [facility] MDiff Manual Basophil Percent 4.8 % 0.2 - 1.2 12/[address] [facility] MD[facility] Manual Basophil Absolute 0.9 K/uL 0.0 - 0.1 12/[address] [facility] Anisocytosis 1 None 12/28 * [facility] Microcytosis 1 None 12/[address] * [facility] Macrocytosis 1 None 12/28 * [facility] Ovalocytes 1 None 12/28 * [facility] Giant Platelets 1 None 12/28 * [facility] MDiff Sex assigned at Female 12/[address] [facility] Mg Magnesium Level 1.9 MG/DL 1.7 - 2.8 12/[address] [facility] Mg Sex assigned at Female 12/[address] [facility] PCT Procalcitonin Level 0.35 NG/ML - <=0.50 12/[address] [facility] PCT Sex assigned at Female 12/[address] [facility] Phos Phosphorus Level 3.9 MG/DL 2.5 - 4.5 12/[address] [facility] Phos Sex assigned at Female 12/[address] [facility] Prealb Prealbumin 17.00 MG/DL 18.00 - 38.00 12/[address] [facility] Prealb Sex assigned at Female 12/[address] [facility] C Laura C Laura Final:No growth at 4 days. No anaerobic organisms isolatedSe x assigned at :Rodrigo le 12/27 [facility] C Aer C Aer Final:No growth at 4 days.GS:Fe w White Blood Cells No organisms seen.Sex assigned at :Rodrigo le 12/27 [facility] AutoDiff* Auto Neutrophil Percent 80.3 % 49.4 - 72.6 12/[address] [facility] AutoDiff* Auto Neutrophil Absolute 11.8 K/uL 2.0 - 6.4 12/[address] [facility] AutoDiff* Auto Lymphocyte Percent 9.2 % 18.0 - 40.0 12/[address] [facility] AutoDiff* Auto Lymphocyte Absolute 1.3 K/uL 1.5 - 3.0 12/[address] [facility] AutoDiff* Auto Monocyte Percent 5.3 % 4.9 - 10.1 12/[address] [facility] AutoDiff* Auto Monocyte Absolute 0.8 K/uL 0.3 - 0.8 12/[address] [facility] AutoDiff* Auto Eosinophil Percent 4.8 % 0.0 - 5.0 12/[address] [facility] AutoDiff* Auto Eosinophil Absolute 0.7 K/uL 0.0 - 0.4 12/[address] [facility] AutoDiff* Auto Basophil Percent 0.4 % 0.2 - 1.2 12/[address] [facility] AutoDiff* Auto Basophil Absolute 0.1 K/uL 0.0 - 0.1 12/[address] [facility] AutoDiff* Auto NRBC % 0 % 12/[address] [facility] AutoDiff* Sex assigned at Female 12/[address] [facility] CBC WBC 14.6 K/uL 3.7 - 10.5 12/[address] [facility] CBC RBC 5.82 M/uL 3.61 - 5.37 12/[address] [facility] CBC HGB 12.0 g/dL 11.2 - 15.8 12/[address] [facility] CBC HCT 39.0 % 32.9 - 49.0 12/[address] [facility] CBC MCV 67.0 fL 80.1 - 99.2 12/[address] [facility] CBC MCH 20.7 pg 25.8 - 33.5 12/[address] [facility] CBC MCHC 30.8 g/dL 31.0 - 37.0 12/[address] [facility] CBC RDW 19.4 % 12.0 - 15.8 12/[address] [facility] CBC PLT 689 K/uL 139 - 422 12/[address] [facility] CBC MPV 8.20 fL 6.84 - 10.28 12/[address] [facility] CBC Sex assigned at Female 12/27 NA [facility] Sodium Level 136 MMOL/L 135 - 145 12/27 NA [facility] Potassium Level 4.0 MMOL/L 3.5 - 5.0 12/[address] [facility] CMP Chloride Level 102 MMOL/L 101 - [address] [facility] CMP CO2/Carbon Dioxide 25 MMOL/L 24 - 32 12/27 NA [facility] Anion Gap 9.0 5.0 - 15.0 12/27 NA [facility] Glucose, Random 142 MG/DL - <=200 12/[address] [facility] CMP BUN 17 MG/DL 8 - 20 12/[address] [facility] CMP Creatinine 0.60 MG/DL 0.60 - 1.30 12/27 NA [facility] BUN/Creat Ratio 28.3 12.0 - 20.0 12/27 H [facility] Osmolality, Calculated 276 mOsm/L 12/[address] [facility] CMP Calcium Level 8.4 MG/DL 8.4 - 10.2 12/27 NA [facility] Total Protein 5.9 g/dL 6.4 - 8.3 12/27 L [facility] Albumin Level 3.3 g/dL 3.2 - 5.5 12/27 NA [facility] Globulin Level 2.6 g/dL 1.5 - 3.5 12/[address] [facility] CMP A/G Ratio 1.3 1.1 - 2.2 12/[address] [facility] CMP ALP 68 IU/L 30 - 115 12/[address] [facility] CMP ALT 8 IU/L 5 - 36 12/[address] [facility] CMP AST 14 IU/L 10 - 42 12/[address] [facility] CMP Bilirubin, Total 0.4 MG/DL 0.2 - 1.2 12/[address] [facility] CMP eGFR 89 mL/min/1.7 3m2 12/27 NA This eGFR equation utilizes the 2020 CKD-EPI creatinine equation.Stag es GFRNone or slight 1 >90 ml/minMild 2 60-89 ml/minModerat e 3 30-59 ml/minSevere 4 15-29 ml/minApproac julia Failure 5 <15 ml/min [facility] CMP Sex assigned at Female 12/[address] [facility] CRP CRP C-Reactive Protein 2.30 MG/DL 0.00 - 0.90 12/[address] [facility] CRP Sex assigned at Female 12/27 [facility] Mg Magnesium Level 2.0 MG/DL 1.7 - 2.8 12/[address] [facility] Mg Sex assigned at Female 12/[address] [facility] PCT Procalcitonin Level <0.05 NG/ML - <=0.50 12/[address] [facility] PCT Sex assigned at Female 12/27 [facility] Phos Phosphorus Level 4.3 MG/DL 2.5 - 4.5 12/[address] [facility] Phos Sex assigned at Female 12/27 [facility] VancR Vancomycin Lvl Random 10.8 UG/ML 12/27 NA Therapeutic: Peak: 20 to 40 mcg/mL Trough: 5 to 15 mcg/mLToxic: Peak: >40 mcg/mL Trough: >20 mcg/mL [facility] VancR Sex assigned at Female 12/27 [facility] A1C Glycated Hgbs - Hemoglobin A1C 5.3 % - <=5.6 12/26 NA For screening for diabetes: HgbA1C level of 5.7-6.4% is consistent with increased risk of diabetes (pre-diabetes ); suggest follow-up studies per clinical guidelines. For diagnosis of diabetes(&amp ;gt; = 6.5%): The diagnosis of diabetes in [...] available or where there is a stringent quality assurance assessor program in place).In the absence of unequivocal [...] Fructosamine. *Reference Range based on ADA Guidelines. [facility] A1C Sex assigned at Female 12/[address] [facility] AutoDiff* Auto Neutrophil Percent 76.9 % 49.4 - 72.6 12/[address] [facility] AutoDiff* Auto Neutrophil Absolute 10.8 K/uL 2.0 - 6.4 12/[address] [facility] AutoDiff* Auto Lymphocyte Percent 10.3 % 18.0 - 40.0 12/[address] [facility] AutoDiff* Auto Lymphocyte Absolute 1.4 K/uL 1.5 - 3.0 12/[address] [facility] AutoDiff* Auto Monocyte Percent 5.7 % 4.9 - 10.1 12/26 [facility] AutoDiff* Auto Monocyte Absolute 0.8 K/uL 0.3 - 0.8 12/[address] [facility] AutoDiff* Auto Eosinophil Percent 5.5 % 0.0 - 5.0 12/[address] [facility] AutoDiff* Auto Eosinophil Absolute 0.8 K/uL 0.0 - 0.4 12/[address] [facility] AutoDiff* Auto Basophil Percent 1.6 % 0.2 - 1.2 12/[address] [facility] AutoDiff* Auto Basophil Absolute 0.2 K/uL 0.0 - 0.1 12/[address] [facility] AutoDiff* Sex assigned at Female 12/26 [facility] BNPep BNP B-Natriuretic Peptide 158 PG/ML 5 - 100 12/26 H Interpretive Data for B-type Natriuretic Peptide (BNP):The decision threshold was determined by the 95% confidence limit of BNP concentration in the non-CHF population. There are no statistically significant changes in BNP concentration associated with hypertension, diabetes, renal insufficiency , and chronic obstructive pulmonary disease. The results of the Triage BNP test should be evaluated in the context of all the clinical and laboratory data available. If Triage BNP test results do not agree with the clinical evaluation, additional tests should be performed. [facility] BNPep Sex assigned at Female 12/26 [facility] CBC WBC 14.0 K/uL 3.7 - 10.5 12/[address] [facility] CBC RBC 5.78 M/uL 3.61 - 5.37 12/[address] [facility] CBC HGB 12.1 g/dL 11.2 - 15.8 12/26 [facility] CBC HCT 38.7 % 32.9 - 49.0 12/26 [facility] CBC MCV 67.0 fL 80.1 - 99.2 12/[address] [facility] CBC MCH 20.9 pg 25.8 - 33.5 12/[address] [facility] CBC MCHC 31.2 g/dL 31.0 - 37.0 12/26 [facility] CBC RDW 19.2 % 12.0 - 15.8 12/[address] [facility] CBC PLT 722 K/uL 139 - 422 12/[address] [facility] CBC MPV 8.00 fL 6.84 - 10.28 12/26 [facility] CBC Sex assigned at Female 12/26 [facility] CMP Sodium Level 137 MMOL/L 135 - 145 12/26 NA [facility] Potassium Level 4.4 MMOL/L 3.5 - 5.0 12/[address] [facility] CMP Chloride Level 106 MMOL/L 101 - 111 12/26 NA [facility] CO2/Carbon Dioxide 26 MMOL/L 24 - 32 12/26 NA [facility] Anion Gap 5.0 5.0 - 15.0 12/26 NA [facility] Glucose, Random 86 MG/DL - <=200 12/26 NA [facility] BUN 20 MG/DL 8 - 20 12/26 NA [facility] Creatinine 0.59 MG/DL 0.60 - 1.30 12/26 L [facility] BUN/Creat Ratio 33.9 12.0 - 20.0 12/26 H [facility] Osmolality, Calculated 276 mOsm/L 12/26 NA [facility] Calcium Level 8.4 MG/DL 8.4 - 10.2 12/26 NA [facility] Total Protein 5.7 g/dL 6.4 - 8.3 12/26 L [facility] Albumin Level 3.3 g/dL 3.2 - 5.5 12/26 NA [facility] Globulin Level 2.4 g/dL 1.5 - 3.5 12/26 NA [facility] A/G Ratio 1.4 1.1 - 2.2 12/[address] [facility] CMP ALP 68 IU/L 30 - 115 12/[address] [facility] CMP ALT 8 IU/L 5 - 36 12/[address] [facility] CMP AST 14 IU/L 10 - 42 12/26 [facility] Bilirubin, Total 0.5 MG/DL 0.2 - 1.2 12/[address] [facility] CMP eGFR 89 mL/min/1.7 3m2 12/26 NA This eGFR equation utilizes the 2020 CKD-EPI creatinine equation.Stag es GFRNone or slight 1 >90 ml/minMild 2 60-89 ml/minModerat e 3 30-59 ml/minSevere 4 15-29 ml/minApproac julia Failure 5 <15 ml/min [facility] CMP Sex assigned at Female 12/[address] [facility] Ferritin Ferritin Level 17 NG/ML 10 - [address] [facility] Ferritin Sex assigned at Female 12/[address] [facility] Folate Folate Level 11.60 NG/ML >=6.[address] [facility] Folate Sex assigned at Female 12/[address] [facility] Iron Iron Level 15 UG/DL 40 - 175 12/[address] [facility] Iron Sex assigned at Female 12/[address] [facility] LipidP Total Cholesterol 166 MG/DL 135 - 215 12/26 NA Cholesterol Risk:<200 mg/dL [id number] to 239 mg/dL Borderline>23 9 mg/dL High [facility] LipidP Triglycerides 91 MG/DL 36 - 200 12/26 NA Triglyceride Risk: Low < 150 Borderline High 150 to 199 High 200 to 499 Very High >=500 [facility] LipidP HDL Cholesterol 56 MG/DL 29 - 89 12/[address] [facility] LipidP LDL Cholesterol, Calc 92 MG/DL 62 - 160 12/26 NA LDL Risk: < 130 Low; 130-159 Borderline; > [address] [facility] LipidP Total Chol/HDL Ratio 3.0 0.0 - 13.5 12/26 NA MEN: Average Risk is 5.0, 2X Risk is 9.6WOMEN: Average Risk is 4.5, 2X Risk is 7.1 [facility] LipidP LDL/HDL Ratio 1.6 12/[address] [facility] LipidP Sex assigned at Female 12/[address] [facility] LipidP VLDL Cholesterol, Calc 18 MG/DL 12/[address] [facility] Mg Magnesium Level 2.0 MG/DL 1.7 - 2.8 12/[address] [facility] Mg Sex assigned at Female 12/[address] [facility] Phos Phosphorus Level 3.8 MG/DL 2.5 - 4.5 12/[address] [facility] Phos Sex assigned at Female 12/[address] [facility] PT PT - Patient 14.4 SECNDS 12.0 - 14.7 12/[address] [facility] PT PT - INR 1.1 0.8 - 1.2 12/26 NA ANTICOAGULATE D PATIENT'S LOW RISK, INR 2.0 TO 3.0ANTICOAGUL ATED PATIENT'S HIGH RISK, INR 2.[address] [facility] PT Sex assigned at Female 12/[address] [facility] Retic Reticulocyte Count 0.9 % 0.9 - 1.9 12/[address] [facility] Retic Retic Ct - Absolute 0.05 K/uL 12/[address] [facility] Retic Sex assigned at Female 12/[address] [facility] Trnsf Transferrin Level 249.7 MG/DL 252.0 - 429.0 12/[address] [facility] Trnsf Sex assigned at Female 12/[address] [facility] TSH3 TSH Thyroid Stim Hormone 3RD Generation 2.81 uIU/mL 0.40 - 5.00 12/[address] [facility] TSH3 Sex assigned at Female 12/[address] [facility] VitB12 Vitamin B12 Level 759.0 PG/ML 180.0 - 914.0 12/26 NA Reference Range for Vitamin B12:Normal Range 180 - 914 pg/mLIndeterm inate Range 145 - 180 pg/mLDeficien t Range <= 145 pg/mL [facility] VitB12 Sex assigned at Female 12/[address] [facility] MRSA Nasal MRSA Nares by PCR NEGATIVE Negative 12/[address] [facility] MRSA Nasal Sex assigned at Female 12/[address] [facility] C Aer C Aer Final:No growth at 4 days.Sex assigned at :Fema le 12/26 [facility] C Blood C Blood Final:No growth at 5 days.Sex assigned at :Rodrigo le 12/26 Performed at: [facility], [address] [place] [id number], Clinical Trials Data Coordinator: Johnnie Arnold M.D. [facility] AutoDiff* Auto Neutrophil Percent 79.3 % 49.4 - 72.6 12/[address] [facility] AutoDiff* Auto Neutrophil Absolute 13.1 K/uL 2.0 - 6.4 12/[address] [facility] AutoDiff* Auto Lymphocyte Percent 10.6 % 18.0 - 40.0 12/26 [facility] AutoDiff* Auto Lymphocyte Absolute 1.7 K/uL 1.5 - 3.0 12/[address] [facility] AutoDiff* Auto Monocyte Percent 4.6 % 4.9 - 10.1 12/26 [facility] AutoDiff* Auto Monocyte Absolute 0.8 K/uL 0.3 - 0.8 12/[address] [facility] AutoDiff* Auto Eosinophil Percent 4.7 % 0.0 - 5.0 12/[address] [facility] AutoDiff* Auto Eosinophil Absolute 0.8 K/uL 0.0 - 0.4 12/[address] [facility] AutoDiff* Auto Basophil Percent 0.8 % 0.2 - 1.2 12/[address] [facility] AutoDiff* Auto Basophil Absolute 0.1 K/uL 0.0 - 0.1 12/[address] [facility] AutoDiff* Auto NRBC % 0 % 12/[address] [facility] AutoDiff* Sex assigned at Female 12/26 [facility] CBC WBC 16.4 K/uL 3.7 - 10.5 12/[address] [facility] CBC RBC 6.07 M/uL 3.61 - 5.37 12/[address] [facility] CBC HGB 12.8 g/dL 11.2 - 15.8 12/[address] [facility] CBC HCT 40.7 % 32.9 - 49.0 12/[address] [facility] CBC MCV 67.0 fL 80.1 - 99.2 12/[address] [facility] CBC MCH 21.1 pg 25.8 - 33.5 12/[address] [facility] CBC MCHC 31.5 g/dL 31.0 - 37.0 12/[address] [facility] CBC RDW 19.4 % 12.0 - 15.8 12/[address] [facility] CBC PLT 815 K/uL 139 - 422 12/[address] [facility] CBC MPV 8.40 fL 6.84 - 10.28 12/[address] [facility] CBC Sex assigned at Female 12/[address] [facility] CMP Sodium Level 136 MMOL/L 135 - 145 12/[address] [facility] CMP Potassium Level 4.7 MMOL/L 3.5 - 5.0 12/[address] [facility] CMP Chloride Level 104 MMOL/L 101 - [address] [facility] CMP CO2/Carbon Dioxide 27 MMOL/L 24 - 32 12/[address] [facility] CMP Anion Gap 5.0 5.0 - 15.0 12/[address] [facility] CMP Glucose, Random 95 MG/DL - <=200 12/[address] [facility] CMP BUN 27 MG/DL 8 - 20 12/[address] [facility] CMP Creatinine 0.63 MG/DL 0.60 - 1.30 12/[address] [facility] CMP BUN/Creat Ratio 42.9 12.0 - 20.0 04/16 /[address] [facility] CMP Osmolality, Calculated 277 mOsm/L 12/26 [facility] CMP Calcium Level 9.0 MG/DL 8.4 - 10.2 12/26 [facility] Total Protein 6.8 g/dL 6.4 - 8.3 12/26 [facility] Albumin Level 3.8 g/dL 3.2 - 5.5 12/26 [facility] CMP Globulin Level 3.0 g/dL 1.5 - 3.5 12/26 [facility] CMP A/G Ratio 1.3 1.1 - 2.2 12/26 [facility] CMP ALP 78 IU/L 30 - 115 12/26 [facility] CMP ALT 9 IU/L 5 - 36 12/26 [facility] CMP AST 16 IU/L 10 - 42 12/26 [facility] Bilirubin, Total 0.3 MG/DL 0.2 - 1.2 12/26 [facility] CMP eGFR 88 mL/min/1.7 3m2 12/26 NA This eGFR equation utilizes the 2020 CKD-EPI creatinine equation.Stag es GFRNone or slight 1 >90 ml/minMild 2 60-89 ml/minModerat e 3 30-59 ml/minSevere 4 15-29 ml/minApproac julia Failure 5 <15 ml/min [facility] CMP Sex assigned at Female 12/26 [facility] CRP CRP C-Reactive Protein 1.40 MG/DL 0.00 - 0.90 12/[address] [facility] CRP Sex assigned at Female 12/26 [facility] ESR Auto Sedimentation Rate Auto 33 MM/HR 0 - 30 12/26 H The iSED Erythrocyte Sedimentation Rate analyzer is an automated sedimentation rate analyzer which reports sedimentation rate mm/hr. It is a non-specific, quantitative result. This test may produce falsely elevated ESR values in the presence of increased levels of Fibrinogen and gamma globulins. Please correlate result with other clinical findings. [facility] ESR Auto Sex assigned at Female 12/[address] [facility] Lactic WB Lactic Acid WB 0.83 MMOL/L 0.56 - 1.39 12/[address] [facility] Lactic WB Sex assigned at Female 12/[address] [facility] C Blood C Blood Final:No growth at 5 days.Sex assigned at :Fema le 12/26 Performed at: [facility], [address] [place] [id number], Clinical Trials Data Coordinator: Johnnie Arnold M.D. [facility] A1C Glycated Hgbs - Hemoglobin A1C 5.4 % - <=5.6 01/18 NA For screening for diabetes: HgbA1C level of 5.7-6.4% is consistent with increased risk of diabetes (pre-diabetes ); suggest follow-up studies per clinical guidelines. For diagnosis of diabetes(&amp ;gt; = 6.5%): The diagnosis of diabetes in [...] available or where there is a stringent quality assurance assessor program in place).In the absence of unequivocal [...] Fructosamine. *Reference Range based on ADA Guidelines. [facility] A1C Sex assigned at Female 01/[address] [facility] AutoDiff* Auto Neutrophil Percent 70.6 % 49.4 - 72.6 01/[address] [facility] AutoDiff* Auto Neutrophil Absolute 8.1 K/uL 2.0 - 6.4 01/[address] [facility] AutoDiff* Auto Lymphocyte Percent 15.4 % 18.0 - 40.0 01/[address] [facility] AutoDiff* Auto Lymphocyte Absolute 1.8 K/uL 1.5 - 3.0 01/[address] [facility] AutoDiff* Auto Monocyte Percent 4.7 % 4.9 - 10.1 01/[address] [facility] AutoDiff* Auto Monocyte Absolute 0.5 K/uL 0.3 - 0.8 01/[address] [facility] AutoDiff* Auto Eosinophil Percent 5.3 % 0.0 - 5.0 01/[address] [facility] AutoDiff* Auto Eosinophil Absolute 0.6 K/uL 0.0 - 0.4 01/[address] [facility] AutoDiff* Auto Basophil Percent 4.0 % 0.2 - 1.2 01/[address] [facility] AutoDiff* Auto Basophil Absolute 0.5 K/uL 0.0 - 0.1 01/[address] [facility] AutoDiff* Auto NRBC % 0 % 01/18 [facility] AutoDiff* Sex assigned at Female 01/18 [facility] BMP Sodium Level 140 MMOL/L 135 - 145 01/18 [facility] BMP Potassium Level 3.8 MMOL/L 3.5 - 5.0 01/18 [facility] BMP Chloride Level 107 MMOL/L 101 - 111 01/18 [facility] BMP CO2/Carbon Dioxide 26 MMOL/L 24 - 32 01/18 [facility] BMP Anion Gap 7.0 5.0 - 15.0 01/18 [facility] BMP Glucose, Random 82 MG/DL - <=200 01/[address] [facility] BMP BUN 13 MG/DL 8 - 20 01/[address] [facility] BMP Creatinine 0.49 MG/DL 0.60 - 1.30 01/18 L [facility] BUN/Creat Ratio 26.5 12.0 - 20.0 01/18 H [facility] Osmolality, Calculated 279 mOsm/L 01/[address] [facility] BMP Calcium Level 8.3 MG/DL 8.4 - 10.2 01/[address] [facility] BMP eGFR >90 mL/min/1.7 3m2 01/18 NA This eGFR equation utilizes the 2020 CKD-EPI creatinine equation.Stag es GFRNone or slight 1 >90 ml/minMild 2 60-89 ml/minModerat e 3 30-59 ml/minSevere 4 15-29 ml/minApproac julia Failure 5 <15 ml/min [facility] BMP Sex assigned at Female 01/[address] [facility] CBC WBC 11.5 K/uL 3.7 - 10.5 01/[address] [facility] CBC RBC 5.90 M/uL 3.61 - 5.37 01/[address] [facility] CBC HGB 12.5 g/dL 11.2 - 15.8 01/[address] [facility] CBC HCT 40.6 % 32.9 - 49.0 01/[address] [facility] CBC MCV 68.8 fL 80.1 - 99.2 01/[address] [facility] CBC MCH 21.2 pg 25.8 - 33.5 01/[address] [facility] CBC MCHC 30.8 g/dL 31.0 - 37.0 01/[address] [facility] CBC RDW 18.6 % 12.0 - 15.8 01/[address] [facility] CBC PLT 499 K/uL 139 - 422 01/[address] [facility] CBC MPV 7.90 fL 6.84 - 10.28 01/[address] [facility] CBC Sex assigned at Female 01/[address] [facility] LipidP Total Cholesterol 170 MG/DL 135 - 215 01/18 NA Cholesterol Risk:<200 mg/dL [id number] to 239 mg/dL Borderline>23 9 mg/dL High [facility] LipidP Triglycerides 63 MG/DL 36 - 200 01/18 NA Triglyceride Risk: Low < 150 Borderline High 150 to 199 High 200 to 499 Very High >=500 [facility] LipidP HDL Cholesterol 70 MG/DL 29 - 89 01/[address] [facility] LipidP LDL Cholesterol, Calc 87 MG/DL 62 - 160 01/18 NA LDL Risk: < 130 Low; 130-159 Borderline; > [address] [facility] LipidP Total Chol/HDL Ratio 2.4 0.0 - 13.5 01/18 NA MEN: Average Risk is 5.0, 2X Risk is 9.6WOMEN: Average Risk is 4.5, 2X Risk is 7.1 [facility] LipidP LDL/HDL Ratio 1.2 01/[address] [facility] LipidP Sex assigned at Female 01/[address] [facility] LipidP VLDL Cholesterol, Calc 13 MG/DL 01/18 [facility] PCT Procalcitonin Level <0.05 NG/ML - <=0.50 01/[address] [facility] PCT Sex assigned at Female 01/18 [facility] TSH3 TSH Thyroid Stim Hormone 3RD Generation 2.86 uIU/mL 0.40 - 5.00 01/[address] [facility] TSH3 Sex assigned at Female 01/18 [facility] VitB12 Vitamin B12 Level 634.0 PG/ML 180.0 - 914.0 01/18 NA Reference Range for Vitamin B12:Normal Range 180 - 914 pg/mLIndeterm inate Range 145 - 180 pg/mLDeficien t Range <= 145 pg/mL [facility] VitB12 Sex assigned at Female 05/09 /2024 [facility] POC Gluc POCT - Glucose (Capillary) 86 MG/DL 65 - 110 01/18 NA Device Code: [id number] ity: 0060Location: 60 MED/SURSerial Number: [id number] perator Code: [id number] or Name: Jesús BADILLO Lot: [id number] r Comment: Cleaned Meter [facility] POC Gluc Sex assigned at Female 01/18 [facility] Lactic WB Lactic Acid WB 0.64 MMOL/L 0.56 - 1.39 01/18 [facility] Lactic WB Sex assigned at Female 01/18 [facility] C Blood C Blood Final:No growth at 5 days.Sex assigned at :Fema le 01/18 [facility] UACSIf UA - Source/Collec t Type Urine Voided 01/18 NA Ascorbic Acid, if present in high concentration s, can cause false negative results on Bilirubin, Blood, Glucose and Nitrite determination s. In addition, high concentration s of MESNA (>1140mg/dL) may falsely elevate Bilirubin, Blood, Leukocyte Esterase and Nitrite results. The presence of MESNA can also cause false negative Glucose determination s. Please correlate with clinical and dietary history [facility] UACSIf UA - Appearance Clear Clear 01/18 [facility] UACSIf UA - Color Yellow 01/18 [facility] UACSIf UA - pH 6.0 5.0 - 8.0 01/18 [facility] UACSIf UA - Specific [place] 1.030 1.010 - 1.025 01/18 * [facility] UACSIf UA - Protein Negative Negative 01/18 [facility] UACSIf UA - Glucose Negative Negative 01/18 [facility] UACSIf UA - Ketones Negative Negative 01/18 [facility] UACSIf UA - Bilirubin Negative Negative 01/18 [facility] UACSIf UA - Blood Negative Negative 01/[address] [facility] UACSIf UA - Urobilinogen Negative Negative 01/[address] [facility] UACSIf UA - Nitrites Negative Negative 01/[address] [facility] UACSIf UA - Leukocyte Esterase Small Negative 01/18 * [facility] UACSIf Urine Culture Y/N Yes 01/[address] [facility] UACSIf UA - WBC 7 /HPF 0 - [address] [facility] UACSIf UA - RBC <1 /HPF 0 - 2 01/[address] [facility] UACSIf UA - Bacteria Negative Negative 01/[address] [facility] UACSIf UA - Epithelials, Squamous Few 0 - 5 01/[address] [facility] UACSIf Sex assigned at Female 01/[address] [facility] C Urine C Urine Final:40,0 00 cfu/ml Three or more bacterial species isolated from urine indicating superficia l or fecal contaminat ion. Suggest recollecti on if symptoms persist.Se x assigned at :Fema le 01/18 Performed at: [facility], [address] [place] [address], Clinical Trials Data Coordinator: Annika Hernandes MD [facility] CLIA Treponema pallidum Ab CLIA Nonreactiv e Non Reactive 01/18 NA LIMITATIONS OF THE PROCEDURE*If the Alinity i Syphilis TP results are inconsistent with clinical evidence, additional testing is suggested to confirm the result.*A reactive test result for treponemal antibodies is not diagnostic of syphilis without additional serologic testing and a full clinical evaluation.*F alse reactive results can be expected with any test kit. The proportion of these falsely reactive specimens is dependent upon the specificity of the test kit, specimen integrity, and the characteristi cs of the local population being screened.*A nonreactive treponemal test result does not exclude the possibility of exposure to or infection with syphilis. Antibodies may be at low or undetectable levels in incubating or early primary disease and in some clinical conditions.*R esults in samples from immunosuppres sed patients or from patients with disorders leading to immunosuppres sim should be interpreted with caution.*The detection of treponemal antibodies may indicate recent, past, or successfully treated syphilis. This test cannot distinguish between active and treated infection, and therefore may not be used to determine response to therapy, relapse, or reinfection.* Assay interference due to circulating antibodies against yaws, pinta, and bejel has not been evaluated. Cross-reactiv ity with these treponemal disease conditions is to be expected. [facility] CLIA Sex assigned at Female 01/18 [facility] AutoDiff* Auto Neutrophil Percent 75.9 % 49.4 - 72.6 01/[address] [facility] AutoDiff* Auto Neutrophil Absolute 11.2 K/uL 2.0 - 6.4 01/[address] [facility] AutoDiff* Auto Lymphocyte Percent 14.5 % 18.0 - 40.0 01/[address] [facility] AutoDiff* Auto Lymphocyte Absolute 2.1 K/uL 1.5 - 3.0 01/18 [facility] AutoDiff* Auto Monocyte Percent 5.1 % 4.9 - 10.1 01/18 [facility] AutoDiff* Auto Monocyte Absolute 0.8 K/uL 0.3 - 0.8 01/18 [facility] AutoDiff* Auto Eosinophil Percent 4.2 % 0.0 - 5.0 01/18 [facility] AutoDiff* Auto Eosinophil Absolute 0.6 K/uL 0.0 - 0.4 01/[address] [facility] AutoDiff* Auto Basophil Percent 0.3 % 0.2 - 1.2 01/18 [facility] AutoDiff* Auto Basophil Absolute 0.0 K/uL 0.0 - 0.1 01/18 [facility] AutoDiff* Auto NRBC % 0 % 01/18 [facility] AutoDiff* Sex assigned at Female 01/[address] [facility] CBC WBC 14.8 K/uL 3.7 - 10.5 01/[address] [facility] CBC RBC 6.16 M/uL 3.61 - 5.37 01/[address] [facility] CBC HGB 13.4 g/dL 11.2 - 15.8 01/[address] [facility] CBC HCT 42.5 % 32.9 - 49.0 01/[address] [facility] CBC MCV 68.9 fL 80.1 - 99.2 01/[address] [facility] CBC MCH 21.8 pg 25.8 - 33.5 01/[address] [facility] CBC MCHC 31.6 g/dL 31.0 - 37.0 01/[address] [facility] CBC RDW 18.4 % 12.0 - 15.8 01/[address] [facility] CBC PLT 534 K/uL 139 - 422 01/[address] [facility] CBC MPV 7.60 fL 6.84 - 10.[address] [facility] CBC Sex assigned at Female 01/[address] [facility] CMP Sodium Level 137 MMOL/L 135 - [address] [facility] CMP Potassium Level 4.3 MMOL/L 3.5 - 5.0 01/[address] [facility] CMP Chloride Level 102 MMOL/L 101 - [address] [facility] CMP CO2/Carbon Dioxide 28 MMOL/L 24 - 32 01/[address] [facility] CMP Anion Gap 7.0 5.0 - 15.0 01/[address] [facility] CMP Glucose, Random 104 MG/DL - <=200 01/18 [facility] CMP BUN 19 MG/DL 8 - 20 01/[address] [facility] CMP Creatinine 0.67 MG/DL 0.60 - 1.30 01/[address] [facility] CMP BUN/Creat Ratio 28.4 12.0 - 20.0 01/18 [facility] Osmolality, Calculated 276 mOsm/L 01/18 [facility] Calcium Level 9.0 MG/DL 8.4 - 10.2 01/18 [facility] Total Protein 7.4 g/dL 6.4 - 8.3 01/18 [facility] Albumin Level 4.0 g/dL 3.2 - 5.5 01/18 [facility] Globulin Level 3.4 g/dL 1.5 - 3.5 01/18 [facility] A/G Ratio 1.2 1.1 - 2.2 01/18 [facility] CMP ALP 88 IU/L 30 - 115 01/18 [facility] ALT 14 IU/L 5 - 36 01/18 [facility] AST 20 IU/L 10 - 42 01/18 [facility] Bilirubin, Total 0.3 MG/DL 0.2 - 1.2 01/18 [facility] eGFR 87 mL/min/1.7 3m2 01/18 NA This eGFR equation utilizes the 2020 CKD-EPI creatinine equation.Stag es GFRNone or slight 1 >90 ml/minMild 2 60-89 ml/minModerat e 3 30-59 ml/minSevere 4 15-29 ml/minApproac julia Failure 5 <15 ml/min [facility] CMP Sex assigned at Female 01/18 [facility] MDW MDW 19.1 AU 0.0 - [...] with hematological abnormalities has not been established. [facility] MDW Sex assigned at Female 01/[address] [facility] PT PT - Patient 13.2 SECNDS 12.0 - 14.7 01/[address] [facility] PT PT - INR 1.0 0.8 - 1.2 01/18 NA ANTICOAGULATE D PATIENT'S LOW RISK, INR 2.0 TO 3.0ANTICOAGUL ATED PATIENT'S HIGH RISK, INR 2.[address] [facility] PT Sex assigned at Female 01/18 [facility] PTT PTT - Patient 40 SECNDS 22 - 36 01/18 H Therapeutic Range:Heparin Units PTT Range0.3 - 0.7 IU/mL 73.4 - 96.20.1 - 0.3 IU/mL 61.9 - 73.4 [facility] PTT Sex assigned at Female 01/[address] [facility] TROPHS Troponin I High Sensitivity [...] serial TnI testing may be helpful for interpretatio n. [facility] TROPHS Sex assigned at Female 01/[address] [facility] POC Gluc POCT - Glucose (Capillary) 118 MG/DL 65 - 110 01/18 H Device Code: 60 ERCFacility: 0060Location: 60 ERSerial Number: [id number] perator Code: Michelle mtz Name: Judi LoidaAngely able Lot: [id number] Comment: Physician Notified [facility] POC Gluc Sex assigned at Female 01/[address] [facility] POC PT/INR POCT - INR 1.3 1.0 - 1.3 01/[address] [facility] POC PT/INR Sex assigned at Female 01/[address] [facility] Pathology Reports Report Value Date Source Surg Path Final Report Left leg wound: -Ulceration, abscess, dystrophic vascular calcifications. Surg Path Clin Info Left leg abscess, left leg wounds Surg Path Specimen/Site 1. Left leg wound Surg Path Gross Description 1. The specimen is received in formalin and labeled with the patient's name and 'left leg wound' and consists of multiple hernandes-pink fibrous tissue, measuring 4 x 2 x 0.5 cm aggregate. The specimen is serially sectioned and renewals representative sections submitted in cassettes [id number] Female 12/27/2024 [facility] Diagnostic Reports Report Value Date Source US Lower Ext Art Duplex Bilat Exam: Ultrasound Bilateral Lower Extremity Arteries Indication: Peripheral vascular disease Comparison: None available. Technique: Multiple sonographic images of the bilateral lower extremity arteries are provided. A duplex Doppler study was performed, consisting of integrated two-dimensional (2D) real-time imaging color flow Doppler and Doppler spectral analysis. Findings: There is no evidence of hemodynamically significant atherosclerotic disease in the bilateral lower extremity arteries. Peak systolic velocities (cm/s): Right REACTOR KETTLE OPERATOR: 94 Right SFA (prox): 101 Right SFA (mid): 100 Right SFA (distal): 87 Right Popliteal: 65 Right SOLAR DESIGN ENGINEER: 42 Right ANDRES: 56, monophasic Right DPA: 54 Left REACTOR KETTLE OPERATOR: 137 Left SFA (prox): 117 Left SFA (mid): 107 Left SFA (distal): 109 Left Popliteal: 86 Left SOLAR DESIGN ENGINEER: Covered by dressing Left ANDRES: Covered by dressing Left DPA: 26 Impression: 1. Monophasic flow in the right anterior tibial artery. Nonspecific. Possible proximal inflow stenosis versus overlying soft tissue swelling 2. otherwise no significant arterial occlusive disease in the bilateral l lower extremity arteries. If you are a provider and would like to contact the interpreting physician or one of the staff members, please call . For patients who have questions in regard to this examination, please contact your referring doctor directly. 12/29/2024 [facility] Tibia/Fibula Lt 2 Vw Exam: Left Tibia/Fi bula, 2-views Indication: Pain, cellulitis, left leg ulcer. Comparison: None available. Technique: AP and lateral views of the left tibia/fibula are provided. Findings/Impression: There is no evidence of acute fracture or dislocation. No osseous lesions are identified. There are no significant degenerative changes. Soft tissue edema is noted in the region of the calf. Severe vascular calcifications are seen in the mid to lower calf. Focal irregular contour of the posterior soft tissues in the lower aspect of the calf may represent either focal soft tissue wound/laceration or soft tissue depression within a region of pitting edema 12/26/2024 [facility] MRI Brain WO Contrast Exam: MRI Brain [...] please contact your referring doctor directly. 01/19/2024 [facility] CT Brain WO Contrast Exam: [...] Addendum Results were relayed by the radiologist surgeon assistant to Dr. Carter on 01/18/2024 8:49 p.m. 01/19/2024 [facility] Chest 1 Vw Portable Exam: [...] please contact your referring doctor directly. 01/19/2024 [facility] CT Angio Head/Neck W Contrast [...] more distal vessel in accordance with [place] Symptomatic Carotid Endarterectomy Trial (NASCET). If you are a provider and would like to contact the interpreting physician or one of the staff members, please call . For patients who have questions in regard to this examination, please contact your referring doctor directly. 01/19/2024 [facility] Consultation Notes Results Value Date Source ED Physician Notes Patient: JEWEL CURRAN Age: 84 years Legal Sex: FEMALE : 1940 Chief Complaint Pt came for recheck left leg surgical wound prior leaving tomorrow to [facility]. Pt had a surgery to left lower leg due to leg ulcers by Dr. Liu on 12/28. Last night the wound stsrted to bleed. Now bleeding stopped, drsg in place. Denies pain. Mode of Arrival Walk-In History (History of Present Illness) Patient is an 84-year-old female who presents to the emergency department with her for wound reevaluation. Patient was seen in this emergency department 1 week ago and admitted to the hospital for necrotic wound to the left lower leg. Incision and drainage along with debridement were performed in the hospital and patient had wound care done over 3 days. Patient was then discharged. Patient is flying back home to [place] tomorrow. She came in today for reevaluation as she states last night, during the cleaning and dressing change, the wound began to 'bleed a lot'. She denies any purulent drainage or discharge. She denies any redness, fever, NVD. Patient is able to ambulate on leg. She states bleeding is now controlled. She is also requesting a new prescription for packing materials. _ Documentation Reviewed: Ancillary Staff Notes (Nursing, CW, SW, etc.) Physical Exam Triage Vital Signs 01/01/25 12:07 T: 97.9 F HR: 76 RR: 18 BP: 153/73 SPO2: 97% HT: 157.48 cm WT: 60.1 kg(Dose Calc Wt.) WT: 60.1 kg BMI: 26.37 kg/m2 GENERAL: Alert, no acute distress SKIN: 2 large well-healing ulcerated wounds noted to the left lower leg. No surrounding erythema. No discharge or bleeding. Areas are mildly TTP. No evidence of necrotic tissue. HEAD: Normocephalic, atraumatic NECK: Supple, trachea midline EYE: PERRL, normal conjunctivae EARS, NOSE, MOUTH and THROAT: oral mucosa moist CARDIOVASCULAR: Regular rate and rhythm, no murmur, normal peripheral perfusion RESPIRTORY: Lungs are clear to auscultation, respirations are nonlabored, breath sounds are equal ABDOMINAL: Soft, nontender, no signs of surgical abdomen NEUROLOGIC: Alert, answers questions appropriately PSYCH: Cooperative, appropriate mood and affect ED Course, Data, and Interventions Differential Diagnosis Wound reevaluation, medical screening exam, packing change Orders Order Profile Ordered Non-formulary medication 1 inch iodoform dressing, See Instructions, Please dispense 1 container of 1 inch iodoform dressing. Instructions, change the packing every 24 hours., # 1 ea, 0 Refill(s), Maintenance, Pharmacy: [facility]/pharmacy #[id number], Supply, 157.48, cm, 12/26/24 1:27:0... Non-formulary medication 1 inch iodoform packing material, See Instructions, Please dispense 1 container of 1 inch iodoform packing. Directions, change out packing daily., # 1 ea, 0 Refill(s), Maintenance, Pharmacy: [facility]/pharmacy #[id number], Supply, 157.48, cm, 12/26/24 1:27:00 PD... collagenase topical 1 Applic, TOP, DAILY, # 30 gm, 0 Refill(s), Maintenance, Pharmacy: [facility]/pharmacy #[id number], 157.48, cm, 12/26/24 1:27:00 PDT, Height/Length (cm), 60.1, kg, 01/01/25 12:07:00 PDT, Dose calculation weight (kg) collagenase topical 1 Applic, TOP, DAILY, # 30 gm, 0 Refill(s), Acute, Pharmacy: [facility]/pharmacy #[id number], 157.48, cm, 12/26/24 1:27:00 PDT, Height/Length (cm), 60.1, kg, 01/01/25 12:07:00 PDT, Dose calculation weight (kg) Discontinued (Discontinued) 30 Day Return 01/01/25 11:47:54 PDT, Patient was last discharged on 12/28/24 17:53:00 [facility] Alert 01/01/25 11:53:08 PDT Discharge Patient (ED) 01/01/25 13:17:00 PDT, 01/01/25 13:17:00 PDT, 01/01/25 13:17:00 PDT ED Assessment Adult 01/01/25 12:12:55 PDT [place] Alert Order 04/22/25 11:53:13 PDT Non-formulary medication 1 inch iodoform dressing, See Instructions, Please dispense 1 container of 1 inch iodoform dressing. Instructions, change the packing every 24 hours., # 1 ea, 0 Refill(s), Maintenance, Pharmacy: [facility] #[id number], Supply, 157.48, cm, 12/26/24 1:27:00... collagenase topical 1 Applic, TOP, DAILY, # 30 gm, 0 Refill(s), Acute, Pharmacy: [facility] #[id number], 157.48, cm, 12/26/24 1:27:00 PDT, Height/Length (cm), 60.1, kg, 01/01/25 12:07:00 PDT, Dose calculation weight (kg) EKG. EKG results below were independently viewed and interpreted by me. No Qualifying Data Medical Decision Making Patient is an 84-year-old female who presents to the emergency department by her for wound reevaluation. Patient was seen in this emergency department 1 week ago and admitted to the hospital for necrotic wound to the left lower leg. Incision and drainage along with debridement were performed in the hospital and patient had wound care done over 3 days. Patient was then discharged. Patient is flying back home to [place] tomorrow. She came in today for reevaluation as she states last night, during the cleaning and dressing change, the wound began to 'bleed a lot'. She denies any purulent drainage or discharge. She denies any redness, fever, NVD. Patient is able to ambulate on leg. She states bleeding is now controlled. She is also requesting a new prescription for packing materials. 2 large well-healing ulcerated wounds noted to the left lower leg. No surrounding erythema. No discharge or bleeding. Areas are mildly TTP. No evidence of necrotic tissue. Patient has no systemic complaints at this time. Wounds appear to be healing well. No indication for additional imaging or laboratory workup at this time. Packing was again placed and sterile dressings were applied. Additional materials were sent to the pharmacy of choice. They were instructed to keep their appointment with her primary care doctor in 2 days for reevaluation. All questions were answered, they are happy with treatment plan, and instructed to return to the ER for any new or worsening symptoms. _ Diagnosis Medical screening exam Wound reevaluation Condition Stable Disposition Discharge to Home Prescriptions Current medications were reviewed and updated. Prescribed Medications 01/01/2025 13:12 PDT 1 inch iodoform dressing, 1 inch iodoform dressing, See Instructions, Please dispense 1 container of 1 inch iodoform dressing. Instructions, change the packing every 24 hours., # 1 ea, 0 Refill(s), Maintenance, Pharmacy: [facility] #[id number], Supply, 157.48, cm, 12/26/24 1:27:00... 01/01/2025 13:11 PDT collagenase topical 250 units/g ointment, 1 Applic, TOP, DAILY, # 30 gm, 0 Refill(s), Acute, Pharmacy: [facility] #[id number], 157.48, cm, 12/26/24 1:27:00 PDT, Height/Length (cm), 60.1, kg, 01/01/25 12:07:00 PDT, Dose calculation weight (kg) Patient Education Wound Packing Wound Care, Adult Follow-Up Provider: Follow up with primary care provider Date: Within 1-2 days Comment: Keep your scheduled appointment with your primary care doctor in 2 days for reevaluation. You will need to establish a wound care provider as well once you return home. Continue taking antibiotics as directed. Continue wound care as directed. Return to the emergency department for any new or worsening symptoms. MSEI Information MSEI MD/[employer]/PA Time Patient Seen face to face: Date and time 01/01/2025 12:15:57 Past Medical History Active Problems No active problems Past Surgical History EXTREMITY LOWER INCISION AND DRAINAGE DEBRIDEMENT (Left) (12/27/2024). Comments: auto-populated from documented surgical case Social History *Alcohol Screen How often do you have a drink containing alcohol? Never (0). How many standard drinks containing alcohol do you have on a typical day? Never (0). How often do you have six or more drinks on one occasion? Never (0). Ready to change: N/A. 12/26/2024 *Substance Abuse Screen Do you have concerns about substance abuse for yourself or in your household? No. Current or past use? Never. 12/26/2024 *Tobacco Use Screen Is there a smoker in the household? No. Do you have concerns about tobacco use in household? No. Over the past 30 days, what and how much have you smoked? Never (less than 100 in lifetime). Over the past 30 days, what has been your smokeless tobacco use? Never. Are you ready to quit? N/A. 12/26/2024 Allergies Contrast Dye (Itching) Tape (Rash) statins sulfa drugs Home Medications aspirin, 81 mg, ORAL, QMorning doxycycline hyclate 100 mg oral capsule, 100 mg, 1 Cap, ORAL, BID Keflex 500 mg oral capsule, 500 mg, 1 Cap, ORAL, QID lisinopril, 40 mg, ORAL, DAILY Santyl 250 units/g topical ointment, 1 Applic, TOP, DAILY solifenacin 5 mg oral tablet, 5 mg, 1 Tab, ORAL, QBedtime Vitamin C 500 mg oral tablet, 500 mg, 1 Tab, ORAL, BID zinc sulfate 220 mg oral capsule, 220 mg, 1 Cap, ORAL, DAILY I approve the management plan for this patient and take responsibility for the patient management. [id number] Female 01/01/2025 [facility] Post-Anesthesia Note Patient: VIJAY CURRAN Age: 84 years Legal Sex: Female : 1940 Author: MD Parisa, Mustapha Coy Assessment and Plan Postanesthesia assessment: Anesthetic outcome: No complications noted. Patient awake/alert and able to participate in evaluation: Yes. Respiratory Function - Airway patentcy, rate and oxygenation within expected parameters: Yes. Cardiovascular Function: Pulse and blood pressure within expected parameters: Yes. Mental Status - patient arousable/able to follow simple commands, or returned to pre-status: Yes. Pain Scale: Within expected parameters. Nausea and Vomiting: None. Hydration Status: Euvolemic. Temperature within expected parameters: Yes. [id number] Female 12/31/2024 [facility] General Surgery Progress Note Patient: VIJAY CURRAN Age: 84 years Legal Sex: FEMALE : 1940 Subjective some incisional pain, tylenol helping Objective Vitals and Measurements T: 98.5 F HR: 82(Monitored) HR: 70 RR: 16 BP: 119/60 SpO2: 95% O2 Delivery: Room air O2 Flow: 10L/min HT: 157.48 cm WT: 65.4 kg BMI: 26.37 kg/m2 Physical Exam GEN: (+)NAD, (+)cooperative with exam HEENT: head normocephalic, atraumatic RESP: patent airway, no respiratory distress CV: S1, S2 left leg, medial aspect: no surrounding erythema anymore. less swelling. appropriate postop wound ttp. two open wounds with healthy subq at the base, no purulent drainage. no bleeding. no necrotic tissue. Assessment/Plan 84 yo female with history of TIA?, HTN, UTI, overactive bladder, anemia, breast cancer s/p lumpectomy, [place], TKR admitted 12/26: left leg necrotic infected wounds with surrounding cellulitis pt is hemodynamically stable. wbc 14 from 16. s/p Examination under anesthesia, incision and drainage and excisional debridement of left leg infected necrotic wounds 12/28 dressing changed with reducing salon attendant Luh today. wounds have healthy tissue only, no evidence of infection anymore. wbc 17- may be reactive postop? hct stable plan reducing salon attendant for recs- instructions given to patient. supplies given to patient. antibiotics as per ID recs. fu cultures/ path recommended that pt sees plastic surgery for follow up- she may need reconstruction or skin graft. wound care center outpatient for follow up elevate LLE No acute surgical intervention needed at this time from general surgery standpoint. Attestation I have reviewed history and repeated martinez elements. I have seen and examined this patient. I have reviewed the progress in the clinical course since the last examination. I have discussed the patient's condition with other members of the team. Time spent on patient care: 35 minutes [id number] Female 12/28/2024 [facility] Wound Pressure Injury Photo Note Patient: VIJAY CURRAN Age: 84 years Legal Sex: Female : 1940 Author: OMID Wu, Luh Assessment Wound # 1 Nursing Wound Assessment: 12/28/2024 14:49 PDT Surgical incision Left lower, Leg(s) Incision/Wound description : Edges Incision/Wound color : Beefy red, Yellow Incision/Wound length : 6.5 cm Incision/Wound width : 5.5 cm Incision/Wound depth : 1 cm Incision/Wound edges : Not intact Incision/Wound dressing type : ABD, Other: packing Incision/Wound dressing condition : Drainage present Incision/Wound drainage amount : Small Incision/Wound drainage : Serosanguineous Incision/Wound surrounding tissue : Erythema (red) Incision/Wound necrotic description : None Incision/Wound intervention : Assessed, Cleaned with wound cleanser, Dressing changed, Other: hydrogel, plain packing Incision/Wound patient response : Tolerated Incision/Wound premedicated for pain : No Surgical incision Left upper Incision/Wound description : Edges Incision/Wound color : Beefy red, Yellow Incision/Wound length : 4 cm Incision/Wound width : 3 cm Incision/Wound depth : 1 cm Incision/Wound edges : Not intact Incision/Wound dressing type : ABD, Other: packing Incision/Wound dressing condition : Drainage present Incision/Wound drainage amount : None Incision/Wound surrounding tissue : Erythema (red) Incision/Wound necrotic description : None Incision/Wound intervention : Assessed, Cleaned with wound cleanser, Dressing changed, Other: packing Incision/Wound patient response : Tolerated Incision/Wound premedicated for pain : No . Wound Photograph 2024-12-28 14:24:24 . Per H&P Chief Complaint BIB family c/o L-leg ulcer x a few weeks. Pt was seen here last week, instructed to return if no improvement. Reddness observed around wound, pt reports yellow discharge. Pt aox4, resp e/u, raúl w/d/i Patient had Examination under anesthesia, incision and drainage and excisional debridement of left leg infected necrotic wounds on 12/27 with . Today Patient was A/Ox4. patient was given Dilaudid IV for pain before dressing change. ABD pad was removed and full thickness wound was noted. No s/s of infection. Minimal drainage noted erythema has decreased and no induration present. Per MD nassar to continue with: 1.) cleanse with ANASEPT, apply hydrogel to open wound to provide moisture and lightly pack with plain packing and cover with borderless foam and secure with Coban. I educated patient about the importance of cleansing wound thoroughly, following wound care orders and doing daily dressing changes. I provide patient with 2 hydrogel, 2 bottle of packing, ABD and Coban for dressing changes. I also educated patient about the importance of eating a well balance diet to aid with wound healing. Ad BID ordered. did notify patient she will need to f/u with her PCP for plastic surgery/wound care referrals for f/u tx when she return to [place]. Patient acknowledged all education. Primary RN update wound care orders received. Primary RN to continue with wound care orders. Electronically signed by: OMID Wu Reyna Signed on: 28-Dec-2024 15:27 PDT Electronically routed to: MD Ortiz, Santiago Webb Electronically routed to: MD Noe, Brianne Gloria 12/28/[address] [place] [address] Discharge summary Patient: VIJAY CURRAN ? Age: 84 years Legal Sex: FEMALE : 1940 Admission Information Admit Date: 12/25/24 20:18 Reason for Admission: B REAST CANCER IN FEMALE, TIA, HISTORY OF ASTMA, NECROTIZING CELLULITIS, HTN Physicians Involved With Care A dmitting: MD Ortiz, Santiago Tadeo ttending: MD Alcantar Yuvraj S C onsulting: Clover sloan Jr, MD, Thomas Leslie onsulting: Tania rivera MD, Cuca Leslie onsulting: Олег simons MD, Brianne Leslie onsulting: Quang arvizu MD, Mustapha Leslie onsulting: Quang arvizu MD, Mustapha barfield Care: MD Олег [facility]CDON[facility] Care: Sharon FULTON, NOT ON FILE Final Diagnosis 84-year-old female with the onset about 2 to 3 weeks ago a blister on her left medial mid calf.? This was popped but continued to worsen. Was seen in urgent care there was sent her to her primary care who sent her to a surgeon who did an in office I&D cauterized and started antibiotics. It continued to worsen, was seen in the ER, started on Levaquin and patient returns with worsening pain and erythema extending from her upper medial calf to her ankle. Patient has persistent burning and sharp pain. Patient denies any recent travel camping insect bites or any other skin lesions on her body. Patient has no thigh lymphangitis tenderness or inguinal adenopathy or pain. Denies fever chills sweats nausea vomiting diarrhea URI symptoms. Labs: WBC 16.4, ESR 33, CRP 1.4, lactic 0.83 Patient was seen at [facility] urgent care in [facility] telephone number [phone]. Son thinks that they may have done a wound culture thereLast week but has not heard of any results. #Left calf wound with slough and surrounding erythema s/p I&D on 12/27 - had I&D outpatient by a surgeon but patient unfamiliar with providers name, had progressive redness thereafter, failed outpatient po abx, cw iv vanc/zosyn, reducing salon attendant, bcx-ngtd, follow cultures - consulted ID/kimberly Suárez appreciated- iv vanc/zosyn, tbd, cleared for discharge on po doxy 100 mg bid and keflex 500 mg qid x 7 days total - consulted Surgeon/kimberly Patel appreciated-I&D on 12/27, will need to see plastic surgery for reconstruction, wound care center outpatient for follow up, outpatient follow up - CM referral for home health reducing salon attendant #Hx of TIA - holding aspirin for debridement, resume on 12/28 #HTN - c/w lisinopril, monitor vitals #Overactive bladder - cw s olifenacin #Questionable history of breast cancer treated with lumpectomy alone a few months ago - Plan follow-up with PCP for ongoing monitoring and screening Diet: low na DVT ppx: SCDs, chem ppx held for possible intervention GI ppx: PTX Prognosis: Guarded, dependent on patient's response to treatment Full Code Dispo: - cleared by specialists for discharge to home with home health, rx, care, and follow up instructions. Discussed diagnostic/treatment plan as well as side effects and adverse effects with patient and her family, verbalize understanding and agreeing with plans/discussions. P reynaded education on alarm symptoms and advised patient to report back to nearest emergency department if any alarm symptoms arise, patient verbalizes understanding and agrees with plan. Hospital Course Procedures and Treatment Provided Procedures Performed This Encounter: Date and Time: 0 12/27/2024 15:55 Procedure Performed: E XTREMITY LOWER INCISION AND DRAINAGE DE, Left Performed by: Олег simons MD, Brianne Gloria ? ? Physical Exam Vitals and Measurements T: 97.5 F HR: 82(Monitored) HR: 70 RR: 18 BP: 121/54 SpO2: 99% O2 Delivery: Room air O2 Flow: 10L/min HT: 1 57.48 cm W T: 6 5.4 kg B NY: 2 6.37 kg/m2 General Appearance: NAD. HEENT: NCAT. Cardiovascular: NSR. Respiratory: CTAB. Gastrointestinal: Soft, non-distended, non-tender. Genitourinary: N o suprapubic tenderness. No flank pain. Musculoskeletal: dressings dry and intact. Neurological: Alert and interactive with normal affect. Grossly intact motor and sensory examination. Discharge Plan Patient Discharge Condition stable Discharge Disposition/Location Discharge Date: 12/28/24 Discharge Location: [facility] with Home Health Care Discharge Details Follow-Up Plans: lolly hu PCP, Surgeon/Dr. Liu, Wound Care team, and Plastic Surgeon within 2 weeks from discharge Discharge Care Instructions: лоег edmonds complete antibiotic regimen as prescribed, please continue wound care per wound [facility] team, please follow up as instructed for ongoing wound care and monitoring for optimal wound healing Discharge Activity: A ctivity As Tolerated Discharge Diet: R egular Diet Medications Reconciliation Last Documented: 0 12/28/2024 New Prescription ascorbic acid (Vitamin C 500 mg oral tablet)1 Tabs Oral TWICE DAILY. Refills: 0. cephalexin (Keflex 500 mg oral capsule)1 Capsules Oral FOUR TIMES PER DAY for 7 Days. Refills: 0. collagenase topical (Santyl 250 units/g topical ointment)1 Application Top of the skin in one area DAILY. Refills: 0. doxycycline (doxycycline hyclate 100 mg oral capsule)1 Capsules Oral TWICE DAILY for 7 Days. Refills: 0. zinc sulfate (zinc sulfate 220 mg oral capsule)1 Capsules Oral DAILY. Refills: 0. Unchanged [id number] Milligram Oral EVERY MORNING. [id number] Milligram Oral DAILY. solifenacin (solifenacin 5 mg oral tablet)1 Tabs Oral AT BEDTIME. Discontinued clindamycin (clindamycin 300 mg oral capsule)1 Capsules Oral THREE TIMES A DAY. TAKE 1 CAPSULE BY MOUTH 3 TIMES A DAY FOR 7 DAYS. mupirocin topical (mupirocin topical 2% ointment)1 Application Top of the skin in one area THREE TIMES A DAY. Refills: 0. Time Spent Coordinating Discharge >35 mins spent on discharge Electronically signed by: MD Ortiz, Santiago Webb Signed on: 28-Dec-2024 15:10 PDT [facility] Patient: VIJAY CURRAN ? Age: 84 years Legal Sex: FEMALE : 1940 Date of Service 12/28/2024 13:19 PDT Subjective - may, cw iv vanc/zosyn, bcx-ngtd, monitor wcx-pending, resume aspirin sp surgical debridement, cw reducing salon attendant, ID/Surgeon recs appreciated - sp I &D on 12/27 , will need op plastics and wound care for wound mgmt and reconstruction Hospital Course Procedures and Treatment Provided Procedures Performed This Encounter: Date and Time: 0 12/27/2024 15:55 Procedure Performed: E XTREMITY LOWER INCISION AND DRAINAGE DE, Left Performed by: Олег simons MD, Brianne Gloria ? ? Vital Signs T: 97.5 F HR: 82(Monitored) HR: 70 RR: 18 BP: 121/54 SpO2: 99% O2 Delivery: Room air O2 Flow: 10L/min HT: 1 57.48 cm W T: 6 5.4 kg B NY: 2 6.37 kg/m2 Physical Exam General Appearance: NAD. HEENT: NCAT. Cardiovascular: NSR. Respiratory: CTAB. Gastrointestinal: Soft, non-distended, non-tender. Genitourinary: N o suprapubic tenderness. No flank pain. Musculoskeletal: dressings dry and intact. Neurological: Alert and interactive with normal affect. Grossly intact motor and sensory examination Assessment/Plan 84-year-old female with the onset about 2 to 3 weeks ago a blister on her left medial mid calf.? This was popped but continued to worsen. Was seen in urgent care there was sent her to her primary care who sent her to a surgeon who did an in office I&D cauterized and started antibiotics. It continued to worsen, was seen in the ER, started on Levaquin and patient returns with worsening pain and erythema extending from her upper medial calf to her ankle. Patient has persistent burning and sharp pain. Patient denies any recent travel camping insect bites or any other skin lesions on her body. Patient has no thigh lymphangitis tenderness or inguinal adenopathy or pain. Denies fever chills sweats nausea vomiting diarrhea URI symptoms. Labs: WBC 16.4, ESR 33, CRP 1.4, lactic 0.83 Patient was seen at [facility] urgent care in [facility] telephone number [phone]. Son thinks that they may have done a wound culture thereLast week but has not heard of any results. #Left calf wound with slough and surrounding erythema s/p I&D on 12/27 - had I&D outpatient by a surgeon but patient unfamiliar with providers name, had progressive redness thereafter, failed outpatient po abx, cw iv vanc/zosyn, reducing salon attendant, bcx-ngtd, wcx-pending - consulted ID/Dr. Echevarria recs appreciated- iv vanc/zosyn, tbd - consulted Surgeon/Dr. Liu, recs appreciated-I&D on 12/27, likely will need to see plastic surgery for reconstruction, wound care center outpatient for follow up #Hx of TIA - holding aspirin for debridement, resume on 12/28 #HTN - c/w lisinopril, monitor vitals #Overactive bladder - cw s olifenacin #Questionable history of breast cancer treated with lumpectomy alone a few months ago - Plan follow-up with PCP for ongoing monitoring and screening Diet: low na DVT ppx: SCDs, chem ppx held for possible intervention GI ppx: PTX Prognosis: Guarded, dependent on patient's response to treatment Full Code Dispo: - ongoing diagnostics and treatment planning , will need home health wc rn and abx per ID and outpatient wound care with plastics follow up Allergies Contrast Dye ( Itching) Tape ( Rash) statins sulfa drugs Code Status: Full Code Medications Scheduled: acetaminophen 500 mg Tab 5 00 mg 1 ea, ORAL, Q8HR ascorbic acid 500 mg Tab 5 00 mg 1 Tab, ORAL, BID aspirin 81 mg EC Tab 8 1 mg 1 Tab, ORAL, DAILY collagenase 250 Units/gm Oint 30 gm 1 Applic, TOP, DAILY gabapentin 100 mg Cap 1 00 mg 1 Cap, ORAL, Q8H lisinopril 20 mg Tab 4 0 mg 2 Tab, ORAL, DAILY multivitamin w/Minerals Tab 1 Tab, ORAL, DAILY pantoprazole 40 mg EC Tab 4 0 mg 1 Tab, ORAL, ACBkfst piperacillin-tazobactam 3 .375 gm 1 Vial, IVPB, A1M-Busanolp polyethylene glycol Pwd Oral Soln 17 gm 1 7 gm 1 Pkt, ORAL, DAILY sodium chloride 0.9%, 10 mL Flush 1 0 mL, IV FLUSH, Q12H solifenacin 5 mg Tab 5 mg 1 Tab, ORAL, QBedtime vancomycin / D5W 1 ,000 mg 200 mL, IVPB, [id number] vancomycin pharmacy to dose R x to Dose, N/A, As directed zinc sulfate 220 mg Cap 2 20 mg 1 Cap, ORAL, DAILY Continuous: sodium chloride 0.9% 250 mL 2 50 mL, IV, 100 mL/hr sodium chloride 0.9% 250 mL 2 50 mL, IV, 100 mL/hr PRN: albuterol 2.5 mg/3 mL (0.083%) Inh Soln 2 .5 mg 3 mL, INH, Q2H cloNIDine 0.1 mg Tab 0 .1 mg 1 Tab, ORAL, Q4H Dextrose 10% 2 50 mL, IV, As directed Dextrose 10% 1 25 mL, IV, As directed Dextrose 10% 2 50 mL, IV, As directed Dextrose 50% Inj 50 mL Syr 2 5 mL, IV PUSH, As directed Dextrose 50% Inj 50 mL Syr 5 0 mL, IV PUSH, As directed docusate sodium 100 mg Cap 1 00 mg 1 Cap, ORAL, BID enalaprilat 1.25 mg/mL, 1 mL Inj 1 .25 mg 1 mL, IV, Q6H glucagon 1 mg Inj SDV 1 mg, SUBQ, As directed HYDROcod-acetam 5-325 mg Tab 1 Tab, ORAL, Q6H HYDROmorphone 0.5 mg/0.5 mL Inj Syr 0 .5 mg 0.5 mL, IV PUSH, Q3H HYDROmorphone 0.5 mg/0.5 mL Inj Syr 0 .5 mg 0.5 mL, IV PUSH, Q3H ipratropium 0.5mg/2.5 mL (0.02%) Neb Amp 0 .5 mg 2.5 mL, INH, Q2H K-Bicarb- citric acid 20 mEq Effer Tab 2 0 mEq 1 Tab, ORAL, As directed K-Bicarb- citric acid 20 mEq Effer Tab 4 0 mEq 2 Tab, ORAL, As directed K-phos neutral 250 mg TAB 1 Tab, ORAL, As directed K-phos neutral 250 mg TAB 2 Tab, ORAL, As directed magnesium Oxide 400 mg Tab 4 00 mg 1 Tab, ORAL, BID magnesium sulfate / SWFI 2 gm 50 mL, IVPB, [id number] Milk of Magnesia 30 mL 3 0 mL, ORAL, BID nalOXone 0.4 mg/mL, 1 mL Inj 0 .1 mg 0.25 mL, IV PUSH, As directed nitroglycerin 0.4 mg SL Tab #25 0 .4 mg 1 Tab, SUBLING, G2G-Wowygwpx ondansetron 2 mg/mL, 2 mL Inj 4 mg 2 mL, IV PUSH, Q4H oxyCODONE-acetam 10-325 mg Tab 1 Tab, ORAL, Q6H potassium chloride 1 0 mEq 100 mL, IVPB, As directed sodium chloride 0.9%, 10 mL Flush 1 0 mL, IV FLUSH, As directed temazepam 7.5 mg Cap 7 .5 mg 1 Cap, ORAL, QBedtime Home Medications (5) Active aspirin 8 1 mg, ORAL, QMorning clindamycin 300 mg oral capsule 3 00 mg = 1 Cap, ORAL, TID lisinopril 4 0 mg, ORAL, DAILY mupirocin topical 2% ointment 1 Applic, TOP, TID solifenacin 5 mg oral tablet 5 mg = 1 Tab, ORAL, QBedtime Lab Results Labs All 24H Lab Results D ate CRP C-Reactive Protein 2.20 mg/dL (HIGH) 12/28/24 07:45 PDT Auto NRBC % 0 % 12/28/24 07:45 PDT Procalcitonin Level 0.35 ng/mL 12/28/24 07:45 PDT Auto Neutrophil Percent 86.7 % (HIGH) 12/28/24 07:45 PDT Auto Neutrophil Absolute 15.4 K/uL (HIGH) 12/28/24 07:45 PDT Auto Lymphocyte Percent 7.3 % (LOW) 12/28/24 07:45 PDT Auto Lymphocyte Absolute 1.3 K/uL (LOW) 12/28/24 07:45 PDT Auto Monocyte Percent 3.9 % (LOW) 12/28/24 07:45 PDT Auto Monocyte Absolute 0.7 K/uL 12/28/24 07:45 PDT Auto Basophil Percent 1.5 % (HIGH) 12/28/24 07:45 PDT Auto Basophil Absolute 0.3 K/uL (HIGH) 12/28/24 07:45 PDT Auto Eosinophil Percent 0.6 % 12/28/24 07:45 PDT Auto Eosinophil Absolute 0.1 K/uL 12/28/24 07:45 PDT Manual Neutrophil Percent 81.9 % (HIGH) 12/28/24 07:45 PDT Manual Neutrophil Absolute 14.9 K/uL (HIGH) 12/28/24 07:45 PDT Manual Lymphocyte Percent 5.7 % (LOW) 12/28/24 07:45 PDT Manual Lymphocyte Absolute 1.0 K/uL (LOW) 12/28/24 07:45 PDT Manual Monocyte Percent 4.8 % (LOW) 12/28/24 07:45 PDT Manual Monocyte Absolute 0.9 K/uL (HIGH) 12/28/24 07:45 PDT Manual Basophil Percent 4.8 % (HIGH) 12/28/24 07:45 PDT Manual Basophil Absolute 0.9 K/uL (HIGH) 12/28/24 07:45 PDT Manual Eosinophil Percent 0.9 % 12/28/24 07:45 PDT Manual Eosinophil Absolute 0.2 K/uL 12/28/24 07:45 PDT WBC 17.8 K/uL (HIGH) 12/28/24 07:45 PDT RBC 5.79 M/uL (HIGH) 12/28/24 07:45 PDT HGB 12.1 gm/dL 12/28/24 07:45 PDT HCT 38.5 % 12/28/24 07:45 PDT MCV 66.5 fL (LOW) 12/28/24 07:45 PDT MCH 20.9 pg (LOW) 12/28/24 07:45 PDT MCHC 31.5 gm/dL 12/28/24 07:45 PDT RDW 19.1 % (HIGH) 12/28/24 07:45 PDT PLT 751 K/uL (HIGH) 12/28/24 07:45 PDT MPV 8.40 fL 12/28/24 07:45 PDT Anisocytosis 1+ - (ABNORMAL) 12/28/24 07:45 PDT Bands % 2 % 12/28/24 07:45 PDT Giant Platelets 1+ - (ABNORMAL) 12/28/24 07:45 PDT Macrocytosis 1+ - (ABNORMAL) 12/28/24 07:45 PDT Microcytosis 1+ - (ABNORMAL) 12/28/24 07:45 PDT Ovalocytes 1+ - (ABNORMAL) 12/28/24 07:45 PDT Sodium Level 134 mmol/L (LOW) 12/28/24 07:45 PDT Potassium Level 4.9 mmol/L 12/28/24 07:45 PDT Chloride Level 102 mmol/L 12/28/24 07:45 PDT CO2/Carbon Dioxide 26 mmol/L 12/28/24 07:45 PDT Anion Gap 6.0 - 12/28/24 07:45 PDT Glucose, Random 98 mg/dL 12/28/24 07:45 PDT BUN 11 mg/dL 12/28/24 07:45 PDT Creatinine 0.63 mg/dL 12/28/24 07:45 PDT BUN/Creat Ratio 17.5 12/28/24 07:45 PDT Osmolality, Calculated 268 mOsm/L 12/28/24 07:45 PDT Calcium Level 8.4 mg/dL 12/28/24 07:45 PDT Magnesium Level 1.9 mg/dL 12/28/24 07:45 PDT Phosphorus Level 3.9 mg/dL 12/28/24 07:45 PDT Total Protein 5.4 gm/dL (LOW) 12/28/24 07:45 PDT Albumin Level 3.2 gm/dL 12/28/24 07:45 PDT Globulin Level 2.2 gm/dL 12/28/24 07:45 PDT A/G Ratio 1.5 12/28/24 07:45 PDT Bilirubin, Total 0.3 mg/dL 12/28/24 07:45 PDT AST 14 IntUnit/L 12/28/24 07:45 PDT ALT 8 IntUnit/L 12/28/24 07:45 PDT ALP 68 IntUnit/L 12/28/24 07:45 PDT eGFR 88 mL/min/1.73m2 12/28/24 07:45 PDT Diagnostics General Diagnostic Result Type: T ibia/Fibula Lt 2 Vw Result Date: A pril 2024 0 0:35 PDT Reason For Exam: C ellulitis REPORT: Exam: Left Tibia/Fibula, 2-views Indication: Pain, cellulitis, left leg ulcer. Comparison: None available. Technique: AP and lateral views of the left tibia/fibula are provided. Findings/Impression: There is no evidence of acute fracture or dislocation. No osseous lesions are identified. There are no significant degenerative changes. Soft tissue edema is noted in the region of the calf. S evere vascular calcifications are seen in the mid to lower calf. F ocal irregular contour of the posterior soft tissues in the lower aspect of the calf may represent either focal soft tissue wound/laceration or soft tissue depression within a region of pitting edema Electronically signed by Memo simms M.D. on 0 12/26/2024 05:20 Electronically signed by: MD Ortiz, Santiago Webb Signed on: 28-Dec-2024 13:22 PDT 12/28/2024 [facility] Patient: VIJAY CURRAN Age: 84 years Legal Sex: FEMALE : 1940 Date of Service 12/28/2024 13:19 PDT Subjective - may, cw iv vanc/zosyn, bcx-ngtd, monitor wcx-pending, resume aspirin sp surgical debridement, cw reducing salon attendant, ID/Surgeon recs appreciated - sp I&D on 12/27 , will need op plastics and wound care for wound mgmt and reconstruction Hospital Course Procedures and Treatment Provided Procedures Performed This Encounter: Date and Time: 12/27/2024 15:55 Procedure Performed: EXTREMITY LOWER INCISION AND DRAINAGE DE, Left Performed by: MD Liu Lauren Alexandra Vital Signs T: 97.5 F HR: 82(Monitored) HR: 70 RR: 18 BP: 121/54 SpO2: 99% O2 Delivery: Room air O2 Flow: 10L/min HT: 157.48 cm WT: 65.4 kg BMI: 26.37 kg/m2 Physical Exam General Appearance: NAD. HEENT: NCAT. Cardiovascular: NSR. Respiratory: CTAB. Gastrointestinal: Soft, non-distended, non-tender. Genitourinary: No suprapubic tenderness. No flank pain. Musculoskeletal: dressings dry and intact. Neurological: Alert and interactive with normal affect. Grossly intact motor and sensory examination Assessment/Plan 84-year-old female with the onset about 2 to 3 weeks ago a blister on her left medial mid calf. This was popped but continued to worsen. Was seen in urgent care there was sent her to her primary care who sent her to a surgeon who did an in office I&D cauterized and started antibiotics. It continued to worsen, was seen in the ER, started on Levaquin and patient returns with worsening pain and erythema extending from her upper medial calf to her ankle. Patient has persistent burning and sharp pain. Patient denies any recent travel camping insect bites or any other skin lesions on her body. Patient has no thigh lymphangitis tenderness or inguinal adenopathy or pain. Denies fever chills sweats nausea vomiting diarrhea URI symptoms. Labs: WBC 16.4, ESR 33, CRP 1.4, lactic 0.83 Patient was seen at [facility] urgent care in [facility] telephone number [phone]. Son thinks that they may have done a wound culture thereLast week but has not heard of any results. #Left calf wound with slough and surrounding erythema s/p I&D on 12/27 - had I&D outpatient by a 'surgeon' but patient unfamiliar with providers name, had progressive redness thereafter, failed outpatient po abx, cw iv vanc/zosyn, reducing salon attendant, bcx-ngtd, wcx-pending - consulted ID/kimberly Suárez appreciated- iv vanc/zosyn, tbd - consulted Surgeon/kimberly Patel appreciated-I&D on 12/27, likely will need to see plastic surgery for reconstruction, wound care center outpatient for follow up #Hx of TIA - holding aspirin for debridement, resume on 12/28 #HTN - c/w lisinopril, monitor vitals #Overactive bladder - cw solifenacin #Questionable history of breast cancer treated with lumpectomy alone a few months ago - Plan follow-up with PCP for ongoing monitoring and screening Diet: low na DVT ppx: SCDs, chem ppx held for possible intervention GI ppx: PTX Prognosis: Guarded, dependent on patient's response to treatment Full Code Dispo: - ongoing diagnostics and treatment planning , will need home health wc rn and abx per ID and outpatient wound care with plastics follow up Allergies Contrast Dye (Itching) Tape (Rash) statins sulfa drugs Code Status: Full Code Medications Scheduled: acetaminophen 500 mg Tab 500 mg 1 ea, ORAL, Q8HR ascorbic acid 500 mg Tab 500 mg 1 Tab, ORAL, BID aspirin 81 mg EC Tab 81 mg 1 Tab, ORAL, DAILY collagenase 250 Units/gm Oint 30 gm 1 Applic, TOP, DAILY gabapentin 100 mg Cap 100 mg 1 Cap, ORAL, Q8H lisinopril 20 mg Tab 40 mg 2 Tab, ORAL, DAILY multivitamin w/Minerals Tab 1 Tab, ORAL, DAILY pantoprazole 40 mg EC Tab 40 mg 1 Tab, ORAL, ACBkfst piperacillin-tazobactam 3.375 gm 1 Vial, IVPB, [id number] polyethylene glycol Pwd Oral Soln 17 gm 17 gm 1 Pkt, ORAL, DAILY sodium chloride 0.9%, 10 mL Flush 10 mL, IV FLUSH, Q12H solifenacin 5 mg Tab 5 mg 1 Tab, ORAL, QBedtime vancomycin / D5W 1,000 mg 200 mL, IVPB, [id number] vancomycin pharmacy to dose Rx to Dose, N/A, As directed zinc sulfate 220 mg Cap 220 mg 1 Cap, ORAL, DAILY Continuous: sodium chloride 0.9% 250 mL 250 mL, IV, 100 mL/hr sodium chloride 0.9% 250 mL 250 mL, IV, 100 mL/hr PRN: albuterol 2.5 mg/3 mL (0.083%) Inh Soln 2.5 mg 3 mL, INH, Q2H cloNIDine 0.1 mg Tab 0.1 mg 1 Tab, ORAL, Q4H Dextrose 10% 250 mL, IV, As directed Dextrose 10% 125 mL, IV, As directed Dextrose 10% 250 mL, IV, As directed Dextrose 50% Inj 50 mL Syr 25 mL, IV PUSH, As directed Dextrose 50% Inj 50 mL Syr 50 mL, IV PUSH, As directed docusate sodium 100 mg Cap 100 mg 1 Cap, ORAL, BID enalaprilat 1.25 mg/mL, 1 mL Inj 1.25 mg 1 mL, IV, Q6H glucagon 1 mg Inj SDV 1 mg, SUBQ, As directed HYDROcod-acetam 5-325 mg Tab 1 Tab, ORAL, Q6H HYDROmorphone 0.5 mg/0.5 mL Inj Syr 0.5 mg 0.5 mL, IV PUSH, Q3H HYDROmorphone 0.5 mg/0.5 mL Inj Syr 0.5 mg 0.5 mL, IV PUSH, Q3H ipratropium 0.5mg/2.5 mL (0.02%) Neb Amp 0.5 mg 2.5 mL, INH, Q2H K-Bicarb- citric acid 20 mEq Effer Tab 20 mEq 1 Tab, ORAL, As directed K-Bicarb- citric acid 20 mEq Effer Tab 40 mEq 2 Tab, ORAL, As directed K-phos neutral 250 mg TAB 1 Tab, ORAL, As directed K-phos neutral 250 mg TAB 2 Tab, ORAL, As directed magnesium Oxide 400 mg Tab 400 mg 1 Tab, ORAL, BID magnesium sulfate / SWFI 2 gm 50 mL, IVPB, [id number] Milk of Magnesia 30 mL 30 mL, ORAL, BID nalOXone 0.4 mg/mL, 1 mL Inj 0.1 mg 0.25 mL, IV PUSH, As directed nitroglycerin 0.4 mg SL Tab #25 0.4 mg 1 Tab, SUBLING, U1M-Txfyfdao ondansetron 2 mg/mL, 2 mL Inj 4 mg 2 mL, IV PUSH, Q4H oxyCODONE-acetam 10-325 mg Tab 1 Tab, ORAL, Q6H potassium chloride 10 mEq 100 mL, IVPB, As directed sodium chloride 0.9%, 10 mL Flush 10 mL, IV FLUSH, As directed temazepam 7.5 mg Cap 7.5 mg 1 Cap, ORAL, QBedtime Home Medications (5) Active aspirin 81 mg, ORAL, QMorning clindamycin 300 mg oral capsule 300 mg = 1 Cap, ORAL, TID lisinopril 40 mg, ORAL, DAILY mupirocin topical 2% ointment 1 Applic, TOP, TID solifenacin 5 mg oral tablet 5 mg = 1 Tab, ORAL, QBedtime Lab Results Labs All 24H Lab Results Date CRP C-Reactive Protein 2.20 mg/dL (HIGH) 12/28/24 07:45 PDT Auto NRBC % 0 % 12/28/24 07:45 PDT Procalcitonin Level 0.35 ng/mL 12/28/24 07:45 PDT Auto Neutrophil Percent 86.7 % (HIGH) 12/28/24 07:45 PDT Auto Neutrophil Absolute 15.4 K/uL (HIGH) 12/28/24 07:45 PDT Auto Lymphocyte Percent 7.3 % (LOW) 12/28/24 07:45 PDT Auto Lymphocyte Absolute 1.3 K/uL (LOW) 12/28/24 07:45 PDT Auto Monocyte Percent 3.9 % (LOW) 12/28/24 07:45 PDT Auto Monocyte Absolute 0.7 K/uL 12/28/24 07:45 PDT Auto Basophil Percent 1.5 % (HIGH) 12/28/24 07:45 PDT Auto Basophil Absolute 0.3 K/uL (HIGH) 12/28/24 07:45 PDT Auto Eosinophil Percent 0.6 % 12/28/24 07:45 PDT Auto Eosinophil Absolute 0.1 K/uL 12/28/24 07:45 PDT Manual Neutrophil Percent 81.9 % (HIGH) 12/28/24 07:45 PDT Manual Neutrophil Absolute 14.9 K/uL (HIGH) 12/28/24 07:45 PDT Manual Lymphocyte Percent 5.7 % (LOW) 12/28/24 07:45 PDT Manual Lymphocyte Absolute 1.0 K/uL (LOW) 12/28/24 07:45 PDT Manual Monocyte Percent 4.8 % (LOW) 12/28/24 07:45 PDT Manual Monocyte Absolute 0.9 K/uL (HIGH) 12/28/24 07:45 PDT Manual Basophil Percent 4.8 % (HIGH) 12/28/24 07:45 PDT Manual Basophil Absolute 0.9 K/uL (HIGH) 12/28/24 07:45 PDT Manual Eosinophil Percent 0.9 % 12/28/24 07:45 PDT Manual Eosinophil Absolute 0.2 K/uL 12/28/24 07:45 PDT WBC 17.8 K/uL (HIGH) 12/28/24 07:45 PDT RBC 5.79 M/uL (HIGH) 12/28/24 07:45 PDT HGB 12.1 gm/dL 12/28/24 07:45 PDT HCT 38.5 % 12/28/24 07:45 PDT MCV 66.5 fL (LOW) 12/28/24 07:45 PDT MCH 20.9 pg (LOW) 12/28/24 07:45 PDT MCHC 31.5 gm/dL 12/28/24 07:45 PDT RDW 19.1 % (HIGH) 12/28/24 07:45 PDT PLT 751 K/uL (HIGH) 12/28/24 07:45 PDT MPV 8.40 fL 12/28/24 07:45 PDT Anisocytosis 1+ - (ABNORMAL) 12/28/24 07:45 PDT Bands % 2 % 12/28/24 07:45 PDT Giant Platelets 1+ - (ABNORMAL) 12/28/24 07:45 PDT Macrocytosis 1+ - (ABNORMAL) 12/28/24 07:45 PDT Microcytosis 1+ - (ABNORMAL) 12/28/24 07:45 PDT Ovalocytes 1+ - (ABNORMAL) 12/28/24 07:45 PDT Sodium Level 134 mmol/L (LOW) 12/28/24 07:45 PDT Potassium Level 4.9 mmol/L 12/28/24 07:45 PDT Chloride Level 102 mmol/L 12/28/24 07:45 PDT CO2/Carbon Dioxide 26 mmol/L 12/28/24 07:45 PDT Anion Gap 6.0 - 12/28/24 07:45 PDT Glucose, Random 98 mg/dL 12/28/24 07:45 PDT BUN 11 mg/dL 12/28/24 07:45 PDT Creatinine 0.63 mg/dL 12/28/24 07:45 PDT BUN/Creat Ratio 17.5 12/28/24 07:45 PDT Osmolality, Calculated 268 mOsm/L 12/28/24 07:45 PDT Calcium Level 8.4 mg/dL 12/28/24 07:45 PDT Magnesium Level 1.9 mg/dL 12/28/24 07:45 PDT Phosphorus Level 3.9 mg/dL 12/28/24 07:45 PDT Total Protein 5.4 gm/dL (LOW) 12/28/24 07:45 PDT Albumin Level 3.2 gm/dL 12/28/24 07:45 PDT Globulin Level 2.2 gm/dL 12/28/24 07:45 PDT A/G Ratio 1.5 12/28/24 07:45 PDT Bilirubin, Total 0.3 mg/dL 12/28/24 07:45 PDT AST 14 IntUnit/L 12/28/24 07:45 PDT ALT 8 IntUnit/L 12/28/24 07:45 PDT ALP 68 IntUnit/L 12/28/24 07:45 PDT eGFR 88 mL/min/1.73m2 12/28/24 07:45 PDT Diagnostics General Diagnostic Result Type: Tibia/Fibula Lt 2 Vw Result Date: December 26, 2024 00:35 PDT Reason For Exam: Cellulitis REPORT: Exam: Left Tibia/Fibula, 2-views Indication: Pain, cellulitis, left leg ulcer. Comparison: None available. Technique: AP and lateral views of the left tibia/fibula are provided. Findings/Impression: There is no evidence of acute fracture or dislocation. No osseous lesions are identified. There are no significant degenerative changes. Soft tissue edema is noted in the region of the calf. Severe vascular calcifications are seen in the mid to lower calf. Focal irregular contour of the posterior soft tissues in the lower aspect of the calf may represent either focal soft tissue wound/laceration or soft tissue depression within a region of pitting edema [id number] Female 12/28/2024 [facility] Operation/Procedure Report Surgery Date: 12/27/2024 Surgeon: Brianne Liu MD PREOPERATIVE DIAGNOSES: 1. Left leg abscess. 2. Left leg necrotic wounds. POSTOPERATIVE DIAGNOSES: 1. Left leg abscess. 2. Left leg necrotic wounds. PROCEDURE: Examination under anesthesia, incision and drainage and excisional debridement of left leg infected necrotic wounds. SURGEON: Brianne Liu. HUMAN SERVICE SPECIALIST: None. ANESTHESIA: General, local. ESTIMATED BLOOD LOSS: 5 mL SPECIMEN: Left leg wound tissue. DRAINS: None. COMPLICATIONS: None. INTRAOPERATIVE FINDINGS: See the procedure description. INDICATIONS: This is an 84-year-old female who has had left leg wounds for about 3-4 weeks. She saw a surgeon 3 weeks ago in [place] who excised this wound under local anesthesia, and she states that it was bleeding a lot and there was pus coming out. The wound was packed with iodoform and the packing was removed about a week, maybe even 2 weeks later. She was given antibiotics after the excision. She was at [facility] 1 week ago, packing was removed and the wound was cleaned and a new bandage was applied and she was given antibiotics. Again, she continues to have left leg pain. She is here in [place] visiting for [facility]. She is from [place]. Patient states that she did not have any trauma or bug bite or shaving. She has never had lesions like this before. The patient's left leg has evidence of cellulitis. The wounds are necrotic and fluctuant. There is some purulent fluid. The patient is unable to tolerate a complete evaluation of the wound at bedside due to pain. Recommended incision and drainage as well as excisional debridement in the operating room, so that the wound could be completely treated for the necrotizing soft tissue infection. Patient consented to the procedure after understanding the benefits, alternatives, complications, and risks, which include but are not limited to bleeding, pain, scarring, infection, injury to nearby structures, DVT, PE, [place], stroke, , scar, deformity, wound dehiscence, poor wound healing, need for reoperation, need for reconstruction need for skin graft, recurrence, need for reoperation. DESCRIPTION OF PROCEDURE: Patient was taken to the operating room, placed in the supine position. She was carefully padded. General anesthesia was induced. Timeout completed verifying correct patient, procedure, site, position, and special equipment prior to beginning this procedure. Prophylactic dose of antibiotic was given. SCDs were in place on the right leg. Patient voided prior to entering the OR, therefore, Rdz catheter was not placed. The patient's leg was repositioned so that the medial aspect of her lower leg was exposed. The lower leg was then prepped and draped in the usual sterile fashion. Local anesthesia was infiltrated around both the wounds. My attention was first turned to the larger wound and the tissue was very friable and necrotic. Purulent fluid was drained. Wound cultures were taken. I barely had to make an incision because the wound was so friable. The necrotic skin and subcutaneous tissue were excised with the help of electrocautery down to healthy skin edges and healthy necrotic tissue. This was approximately 6.5 x 4 x 1 cm in size. There was no deep purulent fluid drained. Hemostasis was achieved with electrocautery. The wound was then covered with a lap pad. My attention was turned to the other wound that was superior to this previous wound. Again, the tissue was very friable. I barely had to make an incision and the tissue started to basically fall off. Purulent fluid was drained and a culture was taken. The necrotic skin and subcutaneous tissue were excised with electrocautery down to healthy skin edges and healthy subcutaneous tissue. This was approximately 4 x 3 cm in size. There was no deep fluid collection. The remaining tissue and the wound bed appeared healthy. Hemostasis was achieved with electrocautery. The wounds were irrigated with saline solution. The wounds were then packed with iodoform packing. Surgical sites were cleaned and dried. ABD pad was applied and then Coban was applied to secure the ABD. Sponge, needle and instrument counts complete and correct at the end of the procedure. The patient tolerated the procedure well and was taken to the postanesthesia care [place] [id number] Female 12/28/2024 [facility] Operation/Procedure Report Patient: VIJAY CURRAN Age: 84 years Legal Sex: FEMALE : 1940 Preoperative Diagnosis left leg abscess, left leg wounds Postoperative Diagnosis left leg abscess, left leg wounds Operation EXTREMITY LOWER INCISION AND DRAINAGE DEBRIDEMENT, Left Surgeon(s) MD Noe, Brianne Gloria (Surgeon/Provider - 1) Tablet Making Machine Operator(s) none Anesthesia General_2 MD Mccauley Oscar J (Medically Responsible Provider) Estimated Blood Loss *EBL Blood loss, other output - 5 Findings see op dictation necrotic skin and fat purulent drainage Infection Present at Time of Surgery yes POA Specimen(s) Specimen ID: Left Leg Wound [1] Specimen Type: Permanent [1] Specimen Parker. 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 Pre-Anesthesia Evaluation Patient: VIJAY CURRAN Age: 84 years Legal Sex: Female : 1940 Author: MD Parisa, Mustapha Coy Preoperative Information Preoperative Data Last Intake (Liquid): None Found Last Intake (Food): None Found Active Diagnoses Cellulitis, leg (Cellulitis of unspecified part of limb) Necrotizing cellulitis (Cellulitis, unspecified) HTN (hypertension) (Essential (primary) hypertension) TIA (transient ischemic attack) (Transient cerebral ischemic attack, unspecified) History of asthma (Personal history of other diseases of the respiratory system) Breast cancer in female (Malignant neoplasm of unspecified site of unspecified female breast) NPO Confirmation: NPO is > 8 hours. Health Status Allergies: Allergic Reactions (Selected) Severity Not Documented Contrast Dye- Itching. Statins- No reactions were documented. Sulfa drugs- No reactions were documented. Tape- Rash. Current medications: Home Medications (5) Active aspirin 81 mg, ORAL, QMorning (Documented 01/19/24) clindamycin 300 mg oral capsule 300 mg = 1 Cap, ORAL, TID (Documented 12/25/24) lisinopril 40 mg, ORAL, DAILY (Documented 12/25/24) mupirocin topical 2% ointment 1 Applic, TOP, TID (Documented 12/20/24) solifenacin 5 mg oral tablet 5 mg = 1 Tab, ORAL, QBedtime (Documented 12/25/24) , (Selected) Inpatient Medications Ordered Atrovent: 0.5 mg, INH, Q2H, PRN, Shortness of breath, NEB AMP, 12/25/24 23:34:00 PDT D10W Bolus: = 125 mL, IV, As directed, PRN, hypoglycemia, IV SOLN, 12/25/24 23:34:00 PDT, 937.5 mL/hr, 8 min D10W Bolus: = 250 mL, IV, As directed, PRN, hypoglycemia, IV SOLN, 12/25/24 23:34:00 PDT, 937.5 mL/hr, 16 min Dextrose 50% injection: = 25 mL, IV PUSH, As directed, PRN, hypoglycemia, INJ, 12/25/24 23:34:00 PDT Dextrose 50% injection: = 50 mL, IV PUSH, As directed, PRN, hypoglycemia, INJ, 12/25/24 23:34:00 PDT K-Phos Neutral: = 1 Tab, ORAL, As directed, PRN, Phosphorus Replacement, TAB, 12/25/24 23:34:00 PDT K-Phos Neutral: = 2 Tab, ORAL, As directed, PRN, Phosphorus Replacement, TAB, 12/25/24 23:34:00 PDT Santyl: = 1 Applic, TOP Site = L) anterior leg, DAILY, OINT, 12/27/24 9:00:00 PDT Sodium Chloride 0.9% IV Tubing Flush (ONE) 250 mL: 250 mL, IV, 12/25/24 23:34:00 PDT, 100 mL/hr, 2.5 hr, Order Weight 65.4, kg, 1.69, m2 Sodium Chloride 0.9% IV Tubing Flush (TWO) 250 mL: 250 mL, IV, 12/25/24 23:34:00 PDT, 100 mL/hr, 2.5 hr, Order Weight 65.4, kg, 1.69, m2 Sodium Chloride 0.9% Saline Flush: = 10 mL, IV FLUSH, As directed, PRN, IV Access Flush, INJ, 12/25/24 23:34:00 PDT Sodium Chloride 0.9% Saline Flush: = 10 mL, IV FLUSH, Q12H, INJ, 12/25/24 23:34:00 PDT Therapeutic Multivitamins with Minerals oral tablet: = 1 Tab, ORAL, DAILY, TAB, 12/27/24 13:08:00 PDT Vitamin C: 500 mg, ORAL, BID, TAB, 12/27/24 21:00:00 PDT Zosyn: 3.375 gm = 1 Vial, IVPB, [id number], Indication= Skin/Soft tissue infxn, necrotizing, VIAL, 12/26/24 3:00:00 PDT, 7 Day(s), Stop date 01/02/25 2:59:00 PDT, 12.5 mL/hr, 4 hr, Extended infusion, standard dose acetaminophen: 650 mg, ORAL, Q4H, PRN, Pain-Mild (Scale 1-3), TAB, 12/25/24 23:34:00 PDT acetaminophen: 650 mg, ORAL, Q6H, PRN, Temperature, TAB, 12/25/24 23:34:00 PDT albuterol: 2.5 mg, INH, Q2H, PRN, Shortness of breath, NEB AMP, 12/25/24 23:34:00 PDT cloNIDine: 0.1 mg, ORAL, Q4H, PRN, Blood Pressure, TAB, 12/25/24 23:34:00 PDT docusate: 100 mg, ORAL, BID, PRN, Constipation, CAP, 12/25/24 23:34:00 PDT enalapril: 1.25 mg, IV, Q6H, PRN, Blood Pressure, INJ, 12/25/24 23:34:00 PDT glucagon: 1 mg, SUBQ, As directed, PRN, Blood Glucose, INJ, 12/25/24 23:34:00 PDT ketorolac: 15 mg, IV PUSH, Q6H, PRN, Pain-Severe (Scale 7-10), INJ, 12/25/24 23:34:00 PDT, 5 Day(s), Stop date 12/30/24 23:33:00 PDT lisinopril: 40 mg, ORAL, DAILY, TAB, 12/25/24 23:25:00 PDT magnesium hydroxide: = 30 mL, ORAL, BID, PRN, Constipation, ORAL SUSP, 12/25/24:34:00 PDT magnesium oxide: 400 mg, ORAL, BID, PRN, Magnesium Replacement, TAB, 12/25/24:34:00 PDT magnesium sulfate 2 g in SWFI 50 mL Premix: 2 gm = 50 mL, IVPB, [id number]-Lffitilk, PRN, Magnesium Replacement, IV SOLN, 12/25/24:34:00 PDT, 50 mL/hr, 60 min nalOXone: 0.1 mg, IV PUSH, As directed, Indication = Sedation reversal/rescue, PRN, Sedation, INJ, 12/25/24:34:00 PDT nitroglycerin: 0.4 mg, SUBLING, [id number]-Mldtfdpx, PRN, Chest Pain, TAB SUBLING, 12/25/24 23:34:00 PDT, 3 Time(s)/Dose(s), Stop date Limited # of times ondansetron: 4 mg, IV PUSH, Q4H, PRN, Nausea/Vomiting, INJ, 12/25/24 23:34:00 PDT pantoprazole: 40 mg, ORAL, ACBkfst, EC TAB, 12/26/24 7:30:00 PDT potassium bicarbonate-citric acid: 20 mEq, ORAL, As directed, PRN, Potassium Replacement, EFFER TAB, 12/25/24 23:34:00 PDT potassium bicarbonate-citric acid: 40 mEq, ORAL, As directed, PRN, Potassium Replacement, EFFER TAB, 12/25/24 23:34:00 PDT potassium chloride 10 mEq/100 mL intravenous solution: 10 mEq = 100 mL, IVPB, As directed, PRN, Potassium Replacement, IV SOLN, 12/25/24 23:34:00 PDT, 100 mL/hr, 60 min solifenacin: 5 mg, ORAL, QBedtime, TAB, 12/26/24 21:00:00 PDT temazepam: 7.5 mg, ORAL, QBedtime, PRN, Insomnia, CAP, 12/25/24 23:34:00 PDT traMADol: 50 mg, ORAL, Q4H, PRN, Pain-Moderate (Scale 4-6), TAB, 12/25/24 23:34:00 PDT vancomycin pharmacy to dose: Rx to Dose, N/A, As directed, Indication= Skin/Soft tissue infxn, necrotizing, IV SOLN, 12/25/24 23:39:00 PDT vancomycin: 1,000 mg = 200 mL, IVPB, [id number], Indication= Skin/Soft tissue infxn, necrotizing, INJ, 12/26/24 9:00:00 PDT, 133.33 mL/hr, 90 min zinc sulfate: 220 mg, ORAL, DAILY, CAP, 12/27/24 13:08:00 PDT, 14 Day(s), Stop date 01/10/25 13:07:00 PDT Prescriptions Prescribed mupirocin topical 2% ointment: 1 Applic, TOP, TID, # 22 gm, 0 Refill(s), Maintenance, Pharmacy: [facility]/pharmacy #[id number], 157.5, cm, 01/19/24 1:08:00 PDT, Height/Length (cm), 56.8, kg, 12/20/24 11:24:00 PDT, Dose calculation weight (kg) Documented Medications Documented aspirin: 81 mg, ORAL, QMorning, 0 Refill(s), Maintenance clindamycin 300 mg oral capsule: = 1 Cap, ORAL, TID, TAKE 1 CAPSULE BY MOUTH 3 TIMES A DAY FOR 7 DAYS lisinopril: 40 mg, ORAL, DAILY, 0 Refill(s), Maintenance solifenacin 5 mg oral tablet: = 1 Tab, ORAL, QBedtime, 0 Refill(s), Maintenance Social History Social and Psychosocial Habits Abuse/Intent to Harm Abuse screen, adult/elderly/domestic: No signs of abuse Safety check complete: Yes CSSRS Risk Level: No risk (0-24) CSSRS Suicide screening: Screening already completed this visit CSSRS Suicide screening ED: Complete the suicide screening RT: RT000 *Alcohol Screen *How often do you have a drink containing alcohol? Never (0) *How many standard drinks containing alcohol do you have on a typical day? Never (0) *Home/Environment Screen *Living situation: Home/Independent Lives with: Child(efren), Significant other *Nutrition Screen *Nutritional Risks: No nutritional risk triggers identified *Substance Abuse Screen Current or past use? Never *Tobacco Use Screen Is there a smoker in the household? No *Do you have concerns about tobacco use in household? No *Over the past 30 days, what and how much have you smoked? Never (less than 100 in lifetime) . Anesthesia history Patient's history: negative. Family's history: negative. Review of Systems Respiratory: Negative except as documented in history of present illness. Cardiovascular: Negative except as documented in history of present illness. Renal: Negative except as documented in history of present illness. Bleeding Disorder: Negative except as documented in history of present illness. Histories Hx of Obstructive Sleep Apnea: No Past Medical History: No active or resolved past medical history items have been selected or recorded. Problem List: Active or Inactive Problems No qualifying data available Procedure history: No active procedure history items have been selected or recorded. Physical Examination Airway: Mallampati classification: II (soft palate, fauces, uvula visible). Neck: Supple. Respiratory: Lungs are clear to auscultation. Cardiovascular: Normal rate. Review / Management ECG Interpretation: ECG Findings and Impressions (ST) No Qualifying Data. 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 Anesthetic Preoperative Plan Premedication: None. Proposed Anesthesia: General anesthesia. Postoperative pain management: Per surgeon. Risks discussed: nausea, vomiting, headache, sore throat, dental injury, hypotension, allergic reaction, serious complications. Yes, patient has met the criteria.. Informed Consent: I have discussed the anesthesia plan with the patient/patient's legal renewals representative including the risks, benefits, potential complications, and alternative to the anesthesia plan proposed., The discussion included an opportunity to ask questions, all of which have been answered to the patient's/renewals representative's satisfaction. The patient/renewals representative verbalized understanding and wish to proceed.. 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 HEENT: NCAT. Cardiovascular: NSR. Respiratory: CTAB. Gastrointestinal: Soft, non-distended, non-tender. Genitourinary: No suprapubic tenderness. No flank pain. Musculoskeletal: left calf wound with slough and surrounding erythema. Neurological: Alert and interactive with normal affect. Grossly intact motor and sensory examination Assessment/Plan 84-year-old female with the onset about 2 to 3 weeks ago a blister on her left medial mid calf. This was popped but continued to worsen. Was seen in urgent care there was sent her to her primary care who sent her to a surgeon who did an in office I&D cauterized and started antibiotics. It continued to worsen, was seen in the ER, started on Levaquin and patient returns with worsening pain and erythema extending from her upper medial calf to her ankle. Patient has persistent burning and sharp pain. Patient denies any recent travel camping insect bites or any other skin lesions on her body. Patient has no thigh lymphangitis tenderness or inguinal adenopathy or pain. Denies fever chills sweats nausea vomiting diarrhea URI symptoms. Labs: WBC 16.4, ESR 33, CRP 1.4, lactic 0.83 Patient was seen at [facility] urgent care in [facility] telephone number [phone]. Son thinks that they may have done a wound culture thereLast week but has not heard of any results. 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 Echevarria, recs appreciated - consulted Surgeon/Dr. Liu, recs appreciated-I&D on 12/27 #Hx of TIA - holding aspirin for debridement, resume on 12/28 #HTN - c/w lisinopril, monitor vitals #Overactive bladder - cw solifenacin #Questionable history of breast cancer treated with lumpectomy alone a few months ago - Plan follow-up with PCP for ongoing monitoring and screening Diet: low na DVT ppx: SCDs, chem ppx held for possible intervention GI ppx: PTX Prognosis: Guarded, dependent on patient's response to treatment Full Code Dispo: - ongoing diagnostics and treatment planning , will need home health wc rn and abx per ID Allergies Contrast Dye (Itching) Tape (Rash) statins sulfa drugs Code Status: Full Code Medications Scheduled: acetaminophen 500 mg Tab 500 mg 1 ea, ORAL, Q8HR ascorbic acid 500 mg Tab 500 mg 1 Tab, ORAL, BID aspirin 81 mg EC Tab 81 mg 1 Tab, ORAL, DAILY collagenase 250 Units/gm Oint 30 gm 1 Applic, TOP, DAILY gabapentin 100 mg Cap 100 mg 1 Cap, ORAL, Q8H lisinopril 20 mg Tab 40 mg 2 Tab, ORAL, DAILY multivitamin w/Minerals Tab 1 Tab, ORAL, DAILY pantoprazole 40 mg EC Tab 40 mg 1 Tab, ORAL, ACBkfst piperacillin-tazobactam 3.375 gm 1 Vial, IVPB, Q2I-Nluphxog polyethylene glycol Pwd Oral Soln 17 gm 17 gm 1 Pkt, ORAL, DAILY sodium chloride 0.9%, 10 mL Flush 10 mL, IV FLUSH, Q12H solifenacin 5 mg Tab 5 mg 1 Tab, ORAL, QBedtime vancomycin / D5W 1,000 mg 200 mL, IVPB, [id number] vancomycin pharmacy to dose Rx to Dose, N/A, As directed zinc sulfate 220 mg Cap 220 mg 1 Cap, ORAL, DAILY Continuous: sodium chloride 0.9% 250 mL 250 mL, IV, 100 mL/hr sodium chloride 0.9% 250 mL 250 mL, IV, 100 mL/hr PRN: albuterol 2.5 mg/3 mL (0.083%) Inh Soln 2.5 mg 3 mL, INH, Q2H cloNIDine 0.1 mg Tab 0.1 mg 1 Tab, ORAL, Q4H Dextrose 10% 250 mL, IV, As directed Dextrose 10% 125 mL, IV, As directed Dextrose 10% 250 mL, IV, As directed Dextrose 50% Inj 50 mL Syr 25 mL, IV PUSH, As directed Dextrose 50% Inj 50 mL Syr 50 mL, IV PUSH, As directed docusate sodium 100 mg Cap 100 mg 1 Cap, ORAL, BID enalaprilat 1.25 mg/mL, 1 mL Inj 1.25 mg 1 mL, IV, Q6H glucagon 1 mg Inj SDV 1 mg, SUBQ, As directed HYDROcod-acetam 5-325 mg Tab 1 Tab, ORAL, Q6H HYDROmorphone 0.5 mg/0.5 mL Inj Syr 0.5 mg 0.5 mL, IV PUSH, Q3H HYDROmorphone 0.5 mg/0.5 mL Inj Syr 0.5 mg 0.5 mL, IV PUSH, Q3H ipratropium 0.5mg/2.5 mL (0.02%) Neb Amp 0.5 mg 2.5 mL, INH, Q2H K-Bicarb- citric acid 20 mEq Effer Tab 20 mEq 1 Tab, ORAL, As directed K-Bicarb- citric acid 20 mEq Effer Tab 40 mEq 2 Tab, ORAL, As directed K-phos neutral 250 mg TAB 1 Tab, ORAL, As directed K-phos neutral 250 mg TAB 2 Tab, ORAL, As directed magnesium Oxide 400 mg Tab 400 mg 1 Tab, ORAL, BID magnesium sulfate / SWFI 2 gm 50 mL, IVPB, [id number] Milk of Magnesia 30 mL 30 mL, ORAL, BID nalOXone 0.4 mg/mL, 1 mL Inj 0.1 mg 0.25 mL, IV PUSH, As directed nitroglycerin 0.4 mg SL Tab #25 0.4 mg 1 Tab, SUBLING, [id number] ondansetron 2 mg/mL, 2 mL Inj 4 mg 2 mL, IV PUSH, Q4H oxyCODONE-acetam 10-325 mg Tab 1 Tab, ORAL, Q6H potassium chloride 10 mEq 100 mL, IVPB, As directed sodium chloride 0.9%, 10 mL Flush 10 mL, IV FLUSH, As directed temazepam 7.5 mg Cap 7.5 mg 1 Cap, ORAL, QBedtime Home Medications (5) Active aspirin 81 mg, ORAL, QMorning clindamycin 300 mg oral capsule 300 mg = 1 Cap, ORAL, TID lisinopril 40 mg, ORAL, DAILY mupirocin topical 2% ointment 1 Applic, TOP, TID solifenacin 5 mg oral tablet 5 mg = 1 Tab, ORAL, QBedtime Lab Results Labs All 24H Lab Results Date CRP C-Reactive Protein 2.20 mg/dL (HIGH) 12/28/24 07:45 PDT Auto NRBC % 0 % 12/28/24 07:45 PDT Procalcitonin Level 0.35 ng/mL 12/28/24 07:45 PDT Auto Neutrophil Percent 86.7 % (HIGH) 12/28/24 07:45 PDT Auto Neutrophil Absolute 15.4 K/uL (HIGH) 12/28/24 07:45 PDT Auto Lymphocyte Percent 7.3 % (LOW) 12/28/24 07:45 PDT Auto Lymphocyte Absolute 1.3 K/uL (LOW) 12/28/24 07:45 PDT Auto Monocyte Percent 3.9 % (LOW) 12/28/24 07:45 PDT Auto Monocyte Absolute 0.7 K/uL 12/28/24 07:45 PDT Auto Basophil Percent 1.5 % (HIGH) 12/28/24 07:45 PDT Auto Basophil Absolute 0.3 K/uL (HIGH) 12/28/24 07:45 PDT Auto Eosinophil Percent 0.6 % 12/28/24 07:45 PDT Auto Eosinophil Absolute 0.1 K/uL 12/28/24 07:45 PDT Manual Neutrophil Percent 81.9 % (HIGH) 12/28/24 07:45 PDT Manual Neutrophil Absolute 14.9 K/uL (HIGH) 12/28/24 07:45 PDT Manual Lymphocyte Percent 5.7 % (LOW) 12/28/24 07:45 PDT Manual Lymphocyte Absolute 1.0 K/uL (LOW) 12/28/24 07:45 PDT Manual Monocyte Percent 4.8 % (LOW) 12/28/24 07:45 PDT Manual Monocyte Absolute 0.9 K/uL (HIGH) 12/28/24 07:45 PDT Manual Basophil Percent 4.8 % (HIGH) 12/28/24 07:45 PDT Manual Basophil Absolute 0.9 K/uL (HIGH) 12/28/24 07:45 PDT Manual Eosinophil Percent 0.9 % 12/28/24 07:45 PDT Manual Eosinophil Absolute 0.2 K/uL 12/28/24 07:45 PDT WBC 17.8 K/uL (HIGH) 12/28/24 07:45 PDT RBC 5.79 M/uL (HIGH) 12/28/24 07:45 PDT HGB 12.1 gm/dL 12/28/24 07:45 PDT HCT 38.5 % 12/28/24 07:45 PDT MCV 66.5 fL (LOW) 12/28/24 07:45 PDT MCH 20.9 pg (LOW) 12/28/24 07:45 PDT MCHC 31.5 gm/dL 12/28/24 07:45 PDT RDW 19.1 % (HIGH) 12/28/24 07:45 PDT PLT 751 K/uL (HIGH) 12/28/24 07:45 PDT MPV 8.40 fL 12/28/24 07:45 PDT Anisocytosis 1+ - (ABNORMAL) 12/28/24 07:45 PDT Bands % 2 % 12/28/24 07:45 PDT Giant Platelets 1+ - (ABNORMAL) 12/28/24 07:45 PDT Macrocytosis 1+ - (ABNORMAL) 12/28/24 07:45 PDT Microcytosis 1+ - (ABNORMAL) 12/28/24 07:45 PDT Ovalocytes 1+ - (ABNORMAL) 12/28/24 07:45 PDT Sodium Level 134 mmol/L (LOW) 12/28/24 07:45 PDT Potassium Level 4.9 mmol/L 12/28/24 07:45 PDT Chloride Level 102 mmol/L 12/28/24 07:45 PDT CO2/Carbon Dioxide 26 mmol/L 12/28/24 07:45 PDT Anion Gap 6.0 - 12/28/24 07:45 PDT Glucose, Random 98 mg/dL 12/28/24 07:45 PDT BUN 11 mg/dL 12/28/24 07:45 PDT Creatinine 0.63 mg/dL 12/28/24 07:45 PDT BUN/Creat Ratio 17.5 12/28/24 07:45 PDT Osmolality, Calculated 268 mOsm/L 12/28/24 07:45 PDT Calcium Level 8.4 mg/dL 12/28/24 07:45 PDT Magnesium Level 1.9 mg/dL 12/28/24 07:45 PDT Phosphorus Level 3.9 mg/dL 12/28/24 07:45 PDT Total Protein 5.4 gm/dL (LOW) 12/28/24 07:45 PDT Albumin Level 3.2 gm/dL 12/28/24 07:45 PDT Globulin Level 2.2 gm/dL 12/28/24 07:45 PDT A/G Ratio 1.5 12/28/24 07:45 PDT Bilirubin, Total 0.3 mg/dL 12/28/24 07:45 PDT AST 14 IntUnit/L 12/28/24 07:45 PDT ALT 8 IntUnit/L 12/28/24 07:45 PDT ALP 68 IntUnit/L 12/28/24 07:45 PDT eGFR 88 mL/min/1.73m2 12/28/24 07:45 PDT Diagnostics General Diagnostic Result Type: Tibia/Fibula Lt 2 Vw Result Date: December 26, 2024 00:35 PDT Reason For Exam: Cellulitis REPORT: Exam: Left Tibia/Fibula, 2-views Indication: Pain, cellulitis, left leg ulcer. Comparison: None available. Technique: AP and lateral views of the left tibia/fibula are provided. Findings/Impression: There is no evidence of acute fracture or dislocation. No osseous lesions are identified. There are no significant degenerative changes. Soft tissue edema is noted in the region of the calf. Severe vascular calcifications are seen in the mid to lower calf. Focal irregular contour of the posterior soft tissues in the lower aspect of the calf may represent either focal soft tissue wound/laceration or soft tissue depression within a region of pitting edema [id number] Female 12/27/2024 [facility] Infectious Disease Progress Note Patient: VIJAY CURRAN Age: 84 years Legal Sex: FEMALE : 1940 Last 24 Hours patient is afebrile. Her white blood cell count which was 14,000 is 14,600 today. Blood cultures are negative wound culture was sent yesterday in lab no growth so far. Patient is currently on vancomycin and Zosyn Surgery is planned for today.We'll check pro-calcitonin levels. Added Ad also check prealbumin levels arterial Dopplers to rule out peripheral vascular disease which could be contributing to delayed healing of the wound. Multivitamins with minerals, vitamin C, zinc sulfate to assist in wound healing was ordered. Check C-reactive protein and pro-calcitonin levels Vital Signs T: 98.0 F HR: 86(Monitored) HR: 66 RR: 18 BP: 136/65 SpO2: 97% O2 Delivery: Room air HT: 157.48 cm WT: 65.4 kg BMI: 26.37 kg/m2 Physical Exam Gen:No Acute Distress HEENT:NC/AT PERRLA EOMI OP- moist mucus membranes no lesions Neck supple no LAD Lungs-good air entry bilateral, no adventitious sounds CVS -S1 S2 no murmur or gallop Abdomen-soft BS normal NT NG NR NR Skin:left leg wound with cellulitis Extno c.c.e Neuro-AAOX4, SILVER BRAZER II-XII are intact, no focal deficits Assessment/Plan _ Breast cancer in female (Malignant neoplasm of unspecified site of unspecified female breast, C50.919) Cellulitis, leg (Cellulitis of unspecified part of limb, L03.119) History of asthma (Personal history of other diseases of the respiratory system, Z87.09) HTN (hypertension) (Essential (primary) hypertension, I10) Leg ulcer (Leg ulcer, [id number]) Necrotizing cellulitis (Cellulitis, unspecified, 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 hematoma sp I and D in [place] = ) Painful lesion on the left medial calf that initially appeared approximately two to three weeks ago and has since grown in size. The lesion was previously evaluated in urgent care and by primary care provider. No associated fever. Patient has demonstrated resistance to initial antibiotic therapy with clindamycin and levofloxacin, now receiving vancomycin. Diagnostic evaluation includes tibia-fibula X-ray which did not show any fracture. - Anemia, unspecified. - Leukocytosis, - Hypertension. - Questionable history of childhood asthma. PLAN - Vancomycin and zosyn therapy patient is afebrile. Her white blood cell count which was 14,000 is 14,600 today. Blood cultures are negative wound culture was sent yesterday in lab no growth so far. Patient is currently on vancomycin and Zosyn Surgery is planned for today.We'll check pro-calcitonin levels. Added Ad also check prealbumin levels arterial Dopplers to rule out peripheral vascular disease which could be contributing to delayed healing of the wound. Multivitamins with minerals, vitamin C, zinc sulfate to assist in wound healing was ordered. Check C-reactive protein and pro-calcitonin levels Allergies Contrast Dye (Itching) Tape (Rash) statins sulfa drugs Inpatient Medications Scheduled: collagenase 250 Units/gm Oint 30 gm 1 Applic, TOP, DAILY lisinopril 20 mg Tab 40 mg 2 Tab, ORAL, DAILY pantoprazole 40 mg EC Tab 40 mg 1 Tab, ORAL, ACBkfst piperacillin-tazobactam 3.375 gm 1 Vial, IVPB, F7L-Sqyurstb sodium chloride 0.9%, 10 mL Flush 10 mL, IV FLUSH, Q12H solifenacin 5 mg Tab 5 mg 1 Tab, ORAL, QBedtime vancomycin / D5W 1,000 mg 200 mL, IVPB, S10J-Uueegzvg vancomycin pharmacy to dose Rx to Dose, N/A, As directed Continuous: sodium chloride 0.9% 250 mL 250 mL, IV, 100 mL/hr sodium chloride 0.9% 250 mL 250 mL, IV, 100 mL/hr PRN: acetaminophen 325 mg Tab 650 mg 2 ea, ORAL, Q4H acetaminophen 325 mg Tab 650 mg 2 ea, ORAL, Q6H albuterol 2.5 mg/3 mL (0.083%) Inh Soln 2.5 mg 3 mL, INH, Q2H cloNIDine 0.1 mg Tab 0.1 mg 1 Tab, ORAL, Q4H Dextrose 10% 250 mL, IV, As directed Dextrose 10% 125 mL, IV, As directed Dextrose 10% 250 mL, IV, As directed Dextrose 50% Inj 50 mL Syr 25 mL, IV PUSH, As directed Dextrose 50% Inj 50 mL Syr 50 mL, IV PUSH, As directed docusate sodium 100 mg Cap 100 mg 1 Cap, ORAL, BID enalaprilat 1.25 mg/mL, 1 mL Inj 1.25 mg 1 mL, IV, Q6H glucagon 1 mg Inj SDV 1 mg, SUBQ, As directed ipratropium 0.5mg/2.5 mL (0.02%) Neb Amp 0.5 mg 2.5 mL, INH, Q2H K-Bicarb- citric acid 20 mEq Effer Tab 20 mEq 1 Tab, ORAL, As directed K-Bicarb- citric acid 20 mEq Effer Tab 40 mEq 2 Tab, ORAL, As directed K-phos neutral 250 mg TAB 1 Tab, ORAL, As directed K-phos neutral 250 mg TAB 2 Tab, ORAL, As directed ketorolac 15 mg/mL, 1 mL Inj 15 mg 1 mL, IV PUSH, Q6H magnesium Oxide 400 mg Tab 400 mg 1 Tab, ORAL, BID magnesium sulfate / SWFI 2 gm 50 mL, IVPB, I56N-Aaksbgqs Milk of Magnesia 30 mL 30 mL, ORAL, BID nalOXone 0.4 mg/mL, 1 mL Inj 0.1 mg 0.25 mL, IV PUSH, As directed nitroglycerin 0.4 mg SL Tab #25 0.4 mg 1 Tab, SUBLING, Q7M-Rdawuqqe ondansetron 2 mg/mL, 2 mL Inj 4 mg 2 mL, IV PUSH, Q4H potassium chloride 10 mEq 100 mL, IVPB, As directed sodium chloride 0.9%, 10 mL Flush 10 mL, IV FLUSH, As directed temazepam 7.5 mg Cap 7.5 mg 1 Cap, ORAL, QBedtime traMADol 50 mg Tab 50 mg 1 Tab, ORAL, Q4H Home Medications (5) Active aspirin 81 mg, ORAL, QMorning (Documented 01/19/24) clindamycin 300 mg oral capsule 300 mg = 1 Cap, ORAL, TID (Documented 12/25/24) lisinopril 40 mg, ORAL, DAILY (Documented 12/25/24) mupirocin topical 2% ointment 1 Applic, TOP, TID (Documented 12/20/24) solifenacin 5 mg oral tablet 5 mg = 1 Tab, ORAL, QBedtime (Documented 12/25/24) Zosyn 3.375 gm, 1 Vial, 12.5 mL/hr, IVPB, Z2A-Gglyxpni, Start: 12/26/2024 03:00 - Stop: 01/02/2025 02:59 Anti-Infective Medications (Ordered) clindamycin, = 1 Cap, ORAL, TID, TAKE 1 CAPSULE BY MOUTH 3 TIMES A DAY FOR 7 DAYS piperacillin-tazobactam, 3.375 gm = 1 Vial, IVPB, Z5W-Moyakhvs, Indication= Skin/Soft tissue infxn, necrotizing, VIAL, 12/26/24 3:00:00 PDT, 7 Day(s), Stop date 01/02/25 2:59:00 PDT, 12.5 mL/hr, 4 hr, Extended infusion, standard dose vancomycin, 1,000 mg = 200 mL, IVPB, F13N-Xollufsj, Indication= Skin/Soft tissue infxn, necrotizing, INJ, 12/26/24 9:00:00 PDT, 133.33 mL/hr, 90 min Lab Results Labs All 24H Lab Results Date Vancomycin Lvl Random 10.8 mcg/mL 12/27/24 06:52 PDT Auto NRBC % 0 % 12/27/24 06:52 PDT Auto Neutrophil Percent 80.3 % (HIGH) 12/27/24 06:52 PDT Auto Neutrophil Absolute 11.8 K/uL (HIGH) 12/27/24 06:52 PDT Auto Lymphocyte Percent 9.2 % (LOW) 12/27/24 06:52 PDT Auto Lymphocyte Absolute 1.3 K/uL (LOW) 12/27/24 06:52 PDT Auto Monocyte Percent 5.3 % 12/27/24 06:52 PDT Auto Monocyte Absolute 0.8 K/uL 12/27/24 06:52 PDT Auto Basophil Percent 0.4 % 12/27/24 06:52 PDT Auto Basophil Absolute 0.1 K/uL 12/27/24 06:52 PDT Auto Eosinophil Percent 4.8 % 12/27/24 06:52 PDT Auto Eosinophil Absolute 0.7 K/uL (HIGH) 12/27/24 06:52 PDT WBC 14.6 K/uL (HIGH) 12/27/24 06:52 PDT RBC 5.82 M/uL (HIGH) 12/27/24 06:52 PDT HGB 12.0 gm/dL 12/27/24 06:52 PDT HCT 39.0 % 12/27/24 06:52 PDT MCV 67.0 fL (LOW) 12/27/24 06:52 PDT MCH 20.7 pg (LOW) 12/27/24 06:52 PDT MCHC 30.8 gm/dL (LOW) 12/27/24 06:52 PDT RDW 19.4 % (HIGH) 12/27/24 06:52 PDT PLT 689 K/uL (HIGH) 12/27/24 06:52 PDT MPV 8.20 fL 12/27/24 06:52 PDT Sodium Level 136 mmol/L 12/27/24 06:52 PDT Potassium Level 4.0 mmol/L 12/27/24 06:52 PDT Chloride Level 102 mmol/L 12/27/24 06:52 PDT CO2/Carbon Dioxide 25 mmol/L 12/27/24 06:52 PDT Anion Gap 9.0 - 12/27/24 06:52 PDT Glucose, Random 142 mg/dL 12/27/24 06:52 PDT BUN 17 mg/dL 12/27/24 06:52 PDT Creatinine 0.60 mg/dL 12/27/24 06:52 PDT BUN/Creat Ratio 28.3 (HIGH) 12/27/24 06:52 PDT Osmolality, Calculated 276 mOsm/L 12/27/24 06:52 PDT Calcium Level 8.4 mg/dL 12/27/24 06:52 PDT Magnesium Level 2.0 mg/dL 12/27/24 06:52 PDT Phosphorus Level 4.3 mg/dL 12/27/24 06:52 PDT Total Protein 5.9 gm/dL (LOW) 12/27/24 06:52 PDT Albumin Level 3.3 gm/dL 12/27/24 06:52 PDT Globulin Level 2.6 gm/dL 12/27/24 06:52 PDT A/G Ratio 1.3 12/27/24 06:52 PDT Bilirubin, Total 0.4 mg/dL 12/27/24 06:52 PDT AST 14 IntUnit/L 12/27/24 06:52 PDT ALT 8 IntUnit/L 12/27/24 06:52 PDT ALP 68 IntUnit/L 12/27/24 06:52 PDT eGFR 89 mL/min/1.73m2 12/27/24 06:52 PDT Diagnostics General Diagnostic Result Type: Tibia/Fibula Lt 2 Vw Result Date: December 26, 2024 00:35 PDT Reason For Exam: Cellulitis REPORT: Exam: Left Tibia/Fibula, 2-views Indication: Pain, cellulitis, left leg ulcer. Comparison: None available. Technique: AP and lateral views of the left tibia/fibula are provided. Findings/Impression: There is no evidence of acute fracture or dislocation. No osseous lesions are identified. There are no significant degenerative changes. Soft tissue edema is noted in the region of the calf. Severe vascular calcifications are seen in the mid to lower calf. Focal irregular contour of the posterior soft tissues in the lower aspect of the calf may represent either focal soft tissue wound/laceration or soft tissue depression within a region of pitting edema [id number] Female 12/27/2024 [facility] Infectious Disease Consultation Patient: VIJAY CURRAN Age: 84 years Legal Sex: FEMALE : 1940 _ INFECTIOUS DISEASE CONSULTATION Thank you very much for the privilege of Infectious Disease Consultation HISTORY OF PRESENT ILLNESS- History obtained from review of Medical Records, discussion with staff, physician, and_ Candy Blanco is an 84-year-old female who presents with a painful lesion on the left medial calf that initially manifested as a blister approximately two to three weeks prior to this evaluation. The patient reports that after initial presentation, the lesion has progressively increased in size. The lesion is characterized by its persistence and resistance to initial therapeutic interventions. Ms. Blanco denies any associated pyrexia throughout the course of this condition. The chronology of medical intervention began with an evaluation at an urgent care facility, followed by assessment by her primary care provider. Initial pharmacotherapy consisted of clindamycin and levofloxacin, both of which failed to resolve the symptomatology, prompting escalation to vancomycin therapy. Diagnostic evaluations have been pursued, including urinalysis which was negative for pyuria, and blood cultures which remain in progress at this time. Radiographic assessment via tibia-fibula X-ray was performed and revealed no evidence of osseous disruption. The patient's past medical history is significant for hypertension, anemia, leukocytosis, and questionable childhood asthma, though the latter diagnosis remains uncertain based on available clinical documentation. - Diagnostic evaluation includes a tibia-fibula X-ray, which did not show any fracture. - Laboratory/Diagnostic Studies: No leukocytosis noted on labs. Urinalysis did not show pyuria. Blood cultures are pending. Gen:No Acute Distress HEENT:NC/AT PERRLA EOMI OP- moist mucus membranes no lesions Neck supple no LAD Lungs-good air entry bilateral, no adventitious sounds CVS -S1 S2 no murmur or gallop Abdomen-soft BS normal NT NG NR NR Skin:wounds on left leg Extno c.c.e Neuro-AAOX4, SILVER BRAZER II-XII are intact, no focal deficits IMAGING: Infectious Disease Consultation is requested chart, labs/Radiology reviewed. PASTMEDICAL AND PAST SURGICAL HISTORY- as per chart HOME MEDICATIONS- as per reconciliation chart SOCIAL HISTORY- Reviewed ALLERGIES- Reviewed REVIEW OF SYSTEMS A Thorough review of systems is performed, pertinent negatives and positive as per HPI. On Examination Shock Index: 0.458 - 12/26/24 19:40 Vital Signs (last 24 hrs) Last Charted Minimum Maximum Temp(?F) 97.8 (DEC 26 19:40 PDT) L 96.6 (DEC 26 15:53 PDT) 98.3 (DEC 26 12:00 PDT) Heart Rate 70 (DEC 26 19:40 PDT) 62 (DEC 26 07:31 PDT) 86 (DEC 26 15:52 PDT) Resp Rate 18 (DEC 26 19:40 PDT) 16 (DEC 26 07:31 PDT) H 22 (DEC 26 12:31 PDT) SBP H 153 (DEC 26 21:36 PDT) 125 (DEC 26 12:00 PDT) H 155 (DEC 26 00:00 PDT) DBP 79 (DEC 26 21:36 PDT) 62 (DEC 26 00:31 PDT) H 91 (DEC 26 15:25 PDT) SpO2 97 (DEC 26 19:40 PDT) 95 (DEC 26 04:02 PDT) 99 (DEC 26 12:31 PDT) OXYDELIVERY Room air Room a Room a (DEC 26 19:40 PDT) (DEC 26 00:00 PDT) (DEC 26 00:00 PDT) General Appearance: No acute distress. HEENT: Normocephalic. PERRL. Normal tympanic membranes. No nasal discharge. Oral cavity and pharynx normal. Teeth and gingiva in good general condition. Neck supple, non-tender without lymphadenopathy, masses or thyromegaly. Cardiac: Normal rate and rhythm. There is no peripheral edema, cyanosis or pallor. Lungs: Clear to auscultation and percussion without rales, rhonchi, wheezing or diminished breath sounds. Abdomen: Positive bowel sounds. Soft, non-distended, non-tender. No guarding or rebound. No masses. Ext Extremity Neuro:NADSkin :_ MedicationsScheduled: collagenase 250 Units/gm Oint 30 gm 1 Applic, TOP, DAILY lisinopril 20 mg Tab 40 mg 2 Tab, ORAL, DAILY pantoprazole 40 mg EC Tab 40 mg 1 Tab, ORAL, ACBkfst piperacillin-tazobactam 3.375 gm 1 Vial, IVPB, [id number] sodium chloride 0.9%, 10 mL Flush 10 mL, IV FLUSH, Q12H solifenacin 5 mg Tab 5 mg 1 Tab, ORAL, QBedtime vancomycin / D5W 1,000 mg 200 mL, IVPB, [id number] vancomycin pharmacy to dose Rx to Dose, N/A, As directed Continuous: sodium chloride 0.9% 250 mL 250 mL, IV, 100 mL/hr sodium chloride 0.9% 250 mL 250 mL, IV, 100 mL/hr PRN: acetaminophen 325 mg Tab 650 mg 2 ea, ORAL, Q4H acetaminophen 325 mg Tab 650 mg 2 ea, ORAL, Q6H albuterol 2.5 mg/3 mL (0.083%) Inh Soln 2.5 mg 3 mL, INH, Q2H cloNIDine 0.1 mg Tab 0.1 mg 1 Tab, ORAL, Q4H Dextrose 10% 250 mL, IV, As directed Dextrose 10% 125 mL, IV, As directed Dextrose 10% 250 mL, IV, As directed Dextrose 50% Inj 50 mL Syr 25 mL, IV PUSH, As directed Dextrose 50% Inj 50 mL Syr 50 mL, IV PUSH, As directed docusate sodium 100 mg Cap 100 mg 1 Cap, ORAL, BID enalaprilat 1.25 mg/mL, 1 mL Inj 1.25 mg 1 mL, IV, Q6H glucagon 1 mg Inj SDV 1 mg, SUBQ, As directed ipratropium 0.5mg/2.5 mL (0.02%) Neb Amp 0.5 mg 2.5 mL, INH, Q2H K-Bicarb- citric acid 20 mEq Effer Tab 20 mEq 1 Tab, ORAL, As directed K-Bicarb- citric acid 20 mEq Effer Tab 40 mEq 2 Tab, ORAL, As directed K-phos neutral 250 mg TAB 1 Tab, ORAL, As directed K-phos neutral 250 mg TAB 2 Tab, ORAL, As directed ketorolac 15 mg/mL, 1 mL Inj 15 mg 1 mL, IV PUSH, Q6H magnesium Oxide 400 mg Tab 400 mg 1 Tab, ORAL, BID magnesium sulfate / SWFI 2 gm 50 mL, IVPB, [id number] Milk of Magnesia 30 mL 30 mL, ORAL, BID nalOXone 0.4 mg/mL, 1 mL Inj 0.1 mg 0.25 mL, IV PUSH, As directed nitroglycerin 0.4 mg SL Tab #25 0.4 mg 1 Tab, SUBLING, [id number] ondansetron 2 mg/mL, 2 mL Inj 4 mg 2 mL, IV PUSH, Q4H potassium chloride 10 mEq 100 mL, IVPB, As directed sodium chloride 0.9%, 10 mL Flush 10 mL, IV FLUSH, As directed temazepam 7.5 mg Cap 7.5 mg 1 Cap, ORAL, QBedtime traMADol 50 mg Tab 50 mg 1 Tab, ORAL, Q4H Labs All 36H Lab Results Normalcy Date Glycated Hgbs - Hemoglobin 5.3 % NORMAL 12/26/24 07:47 Ferritin Level 17 ng/mL NORMAL 12/26/24 07:47 CRP C-Reactive Protein 1.40 mg/dL HIGH 12/25/24 20:44 HDL Cholesterol 56 mg/dL NORMAL 12/26/24 07:47 LDL Cholesterol, Calc 92 mg/dL NORMAL 12/26/24 07:47 VLDL Cholesterol, Calc 18 mg/dL NA 12/26/24 07:47 Total Chol/HDL Ratio 3.0 - NORMAL 12/26/24 07:47 Transferrin Level 249.7 mg/dL LOW 12/26/24 07:47 Vitamin B12 Level 759.0 pg/mL NORMAL 12/26/24 07:47 Folate Level 11.60 ng/mL NORMAL 12/26/24 07:47 LDL/HDL Ratio 1.6 - NA 12/26/24 07:47 TSH Thyroid Stim Hormone 3R 2.81 uInt Unit/mL NORMAL 12/26/24 07:47 MRSA Nares by PCR Negative - NORMAL 12/26/24 06:24 Auto NRBC % 0 % NA 12/25/24 20:44 Lactic Acid WB 0.83 mmol/L NORMAL 12/25/24 20:44 Auto Neutrophil Percent 76.9 % HIGH 12/26/24 07:47 Auto Neutrophil Absolute 10.8 K/uL HIGH 12/26/24 07:47 Auto Lymphocyte Percent 10.3 % LOW 12/26/24 07:47 Auto Lymphocyte Absolute 1.4 K/uL LOW 12/26/24 07:47 Auto Monocyte Percent 5.7 % NORMAL 12/26/24 07:47 Auto Monocyte Absolute 0.8 K/uL NORMAL 12/26/24 07:47 Auto Basophil Percent 1.6 % HIGH 12/26/24 07:47 Auto Basophil Absolute 0.2 K/uL HIGH 12/26/24 07:47 Auto Eosinophil Percent 5.5 % HIGH 12/26/24 07:47 Auto Eosinophil Absolute 0.8 K/uL HIGH 12/26/24 07:47 WBC 14.0 K/uL HIGH 12/26/24 07:47 RBC 5.78 M/uL HIGH 12/26/24 07:47 HGB 12.1 gm/dL NORMAL 12/26/24 07:47 HCT 38.7 % NORMAL 12/26/24 07:47 MCV 67.0 fL LOW 12/26/24 07:47 MCH 20.9 pg LOW 12/26/24 07:47 MCHC 31.2 gm/dL NORMAL 12/26/24 07:47 RDW 19.2 % HIGH 12/26/24 07:47 PLT 722 K/uL HIGH 12/26/24 07:47 MPV 8.00 fL NORMAL 12/26/24 07:47 Sedimentation Rate Auto 33 mm/hr HIGH 12/25/24 20:44 PT - Patient 14.4 sec NORMAL 12/26/24 07:47 PT - INR 1.1 NORMAL 12/26/24 07:47 Sodium Level 137 mmol/L NORMAL 12/26/24 07:47 Potassium Level 4.4 mmol/L NORMAL 12/26/24 07:47 Chloride Level 106 mmol/L NORMAL 12/26/24 07:47 CO2/Carbon Dioxide 26 mmol/L NORMAL 12/26/24 07:47 Anion Gap 5.0 - NORMAL 12/26/24 07:47 Glucose, Random 86 mg/dL NORMAL 12/26/24 07:47 BUN 20 mg/dL NORMAL 12/26/24 07:47 Creatinine 0.59 mg/dL LOW 12/26/24 07:47 BUN/Creat Ratio 33.9 HIGH 12/26/24 07:47 Osmolality, Calculated 276 mOsm/L NA 12/26/24 07:47 Calcium Level 8.4 mg/dL NORMAL 12/26/24 07:47 Magnesium Level 2.0 mg/dL NORMAL 12/26/24 07:47 Phosphorus Level 3.8 mg/dL NORMAL 12/26/24 07:47 Iron Level 15 mcg/dL LOW 12/26/24 07:47 Total Protein 5.7 gm/dL LOW 12/26/24 07:47 Albumin Level 3.3 gm/dL NORMAL 12/26/24 07:47 Globulin Level 2.4 gm/dL NORMAL 12/26/24 07:47 A/G Ratio 1.4 NORMAL 12/26/24 07:47 Total Cholesterol 166 mg/dL NORMAL 12/26/24 07:47 Triglycerides 91 mg/dL NORMAL 12/26/24 07:47 Bilirubin, Total 0.5 mg/dL NORMAL 12/26/24 07:47 AST 14 IntUnit/L NORMAL 12/26/24 07:47 ALT 8 IntUnit/L NORMAL 12/26/24 07:47 ALP 68 IntUnit/L NORMAL 12/26/24 07:47 BNP B-Natriuretic Peptide 158 pg/mL HIGH 12/26/24 07:47 Reticulocyte Count 0.9 % NORMAL 12/26/24 07:[address] - Absolute 0.05 K/uL NA 12/26/24 07:47 eGFR 89 mL/min/1.73m2 NA 12/26/24 07:47 Culture Results Radiology Orders Tibia/Fibula Lt 2 Vw - (12/25/2024 23:41 PDT) Tibia/Fibula Lt 2 Vw 12/26/24 05:20:26 Impression: There is no evidence of acute fracture or dislocation. No osseous lesions are identified. There are no significant degenerative changes. Soft tissue edema is noted in the region of the calf. Severe vascular calcifications are seen in the mid to lower calf. Focal irregular contour of the posterior soft tissues in the lower aspect of the calf may represent either focal soft tissue wound/laceration or soft tissue depression within a region of pitting edema Anti-Infective Medications (Ordered) clindamycin, = 1 Cap, ORAL, TID, TAKE 1 CAPSULE BY MOUTH 3 TIMES A DAY FOR 7 DAYS piperacillin-tazobactam, 3.375 gm = 1 Vial, IVPB, [id number], Indication= Skin/Soft tissue infxn, necrotizing, VIAL, 12/26/24 3:00:00 PDT, 7 Day(s), Stop date 01/02/25 2:59:00 PDT, 12.5 mL/hr, 4 hr, Extended infusion, standard dose vancomycin, 1,000 mg = 200 mL, IVPB, [id number], Indication= Skin/Soft tissue infxn, necrotizing, INJ, 12/26/24 9:00:00 PDT, 133.33 mL/hr, 90 min ASSESSMENT AND RECOMMENDATIONS ID DIAGNOSIS ASSESSMENT - Painful lesion on the left medial calf that initially appeared approximately two to three weeks ago and has since grown in size. The lesion was previously evaluated in urgent care and by primary care provider. No associated fever. Patient has demonstrated resistance to initial antibiotic therapy with clindamycin and levofloxacin, now receiving vancomycin. Diagnostic evaluation includes tibia-fibula X-ray which did not show any fracture. - Anemia, - Leukocytosis, h/o Hypertension. - ( Questionable history of childhood asthma. OTHER MEDICAL PROBLEMS AND HISTORY Anti-Infective Medications (Ordered) clindamycin, = 1 Cap, ORAL, TID, TAKE 1 CAPSULE BY MOUTH 3 TIMES A DAY FOR 7 DAYS piperacillin-tazobactam, 3.375 gm = 1 Vial, IVPB, [id number], Indication= Skin/Soft tissue infxn, necrotizing, VIAL, 12/26/24 3:00:00 PDT, 7 Day(s), Stop date 01/02/25 2:59:00 PDT, 12.5 mL/hr, 4 hr, Extended infusion, standard dose vancomycin, 1,000 mg = 200 mL, IVPB, [id number], Indication= Skin/Soft tissue infxn, necrotizing, INJ, 12/26/24 9:00:00 PDT, 133.33 mL/hr, 90 min RECOMMENDATIONS - Vancomycin therapy on zosyn labs noted follow cultures serial labs including crp pct levels cultures and radiology as needed duration of antibiotics to be decided. which would be based on his clinical condition new laboratory/radiological data monitor temperature curve cont current management labs in AM Discussed with patient about labs, radiology, plan of care, diagnosis, differential diagnosis, antibiotics /treatment being given. Patient is AAOx4, verbalised understanding of the discussion, diagnosis and plan. +++++++++++++++++++++++++++++ +++++++++++++++++++++++++++++ +++++++++++++++++++++++++++++ +++++++++++++++++++++++ patient was seen wearing apropriate protective gear as per diagnosis. The plan of care including diagnosis, labs, radiology was discussed with patient and their renewals representative in detail. [id number] is used for Visit's complex care associated with a confirmed or suspected infectious disease, including disease transmission risk assessment and mitigation, public health investigation, analysis, and testing, and complex antimicrobial therapy counseling and treatment, antibiotic stewarship including discussion with clinical pharmacist, laboratory interpretation-testing- investigation-orders and management, isolation guidelines to [id number] staff, discharge planning including orders prescription transmission. EMR and dragon attestation this medical document was created using electronic medical record system with a Open[employer] dictation system. Although the document has been carefully reviewed there may be typographical and oral phonetic errors. These errors are phonetic and typographical due to the imperfection of the software program and do not reflect any compromise in the medical care of the patient. Time greater than 45 min,50% face to face, on evaluation and management of this patient including independent review of data and imaging, review of prior records, discussion with consultants, and coordination of care plan with patient/RN. Side effects of antibiotics including but not limited to- risk of bone marrow suppression/liver-kidney abnormalities/risk of life threatening drug reaction/clostridium difficile infection, black box warnings were discussed. The risks of antibiotics outweighs benefits in my opinion. Patient /family is awake alert oriented agreed for and continuation of antibiotics for the treatment of their existing/anticipated condition. [id number] Female 12/27/2024 [facility] Surgery Consult note Patient: VIJAY CURRAN ? Age: 84 years Legal Sex: FEMALE : 1940 Chief Complaint BIB family c/o L-leg ulcer x a few weeks. Pt was seen here last week, instructed to return if no improvement. Reddness observed around wound, pt reports yellow discharge. Pt aox4, resp e/u, raúl w/d/i Reason for Consultation left leg wound History of Present Illness Pt presented to the ER last night with complaints of worsening left leg wound. Wound noticed about 4 weeks ago and it was a 3-4cm in size, may have been a blood fulled blister- unclear by patient's description. She is currently here in [facility]- she is from [place]. 3 weeks ago, a surgeon in [place] evaluated her wound and pt states that he asked her what she wanted him to do and she told him to remove it so in the office, the surgeon excised the wound completely under local anesthesia and it was bleeding a lot and pus came out. She said he packed it with iodoform and the packing remained in place for about 1 week, may have been 2 weeks? Antibiotics given at that time. [facility] for evaluation and she said the packing was removed and wound was cleaned then bandage was applied and antibiotics given. She continues to have left leg pain. She also noticed that she developed another lesion on the same leg. She denies previous trauma, bug bites, shaving to her left leg. Denies weakness, numbness, tingling. She is able to walk daily. No previous wounds like this before. She takes ASA daily- no other antiplatelets or anticoagulation PMH; TIA?, HTN, UTI, overactive bladder, anemia, breast cancer PSH: lumpectomy, MIRE[place], TKR SH: denies x 3 FH: breast CA Allergies: Sulfa Contrast dye Statins XR L tib/fib There is no evidence of acute fracture or dislocation. No osseous lesions are identified. There are no significant degenerative changes. Soft tissue edema is noted in the region of the calf. S evere vascular calcifications are seen in the mid to lower calf. F ocal irregular contour of the posterior soft tissues in the lower aspect of the calf may represent either focal soft tissue wound/laceration or soft tissue depression within aregion of pitting edema Review of Systems remainder of ROS negative Physical Exam Vitals and Measurements T: 97.8 F HR: 86(Monitored) HR: 70 RR: 18 BP: 149/70 SpO2: 97% O2 Delivery: Room air HT: 1 57.48 cm W T: 6 5.4 kg(Dose Calc Wt.) W T: 6 5.4 kg B [place]: 2 6.37 kg/m2 GEN: (+)NAD, (+)cooperative with exam HEENT: head normocephalic, atraumatic RESP: p atent a irway, n o respiratory distress CV: S1, S2 left leg, medial aspect: mid- 6x4cm wound with necrotic tissue (purple in color), fluctuance, some purulent fluid expressed, fibrinous material, surrounding erythema. superior/ below knee- 3x3cm necrotic purple discolored wound with fluctuance, no drainage, surrounding erythema. erythema outlined with skin marker. very tender. LLE ROM intact, sensation intact, palpable PT/DP, soft compartments, no crepitus Assessment/Plan 84 yo female with history of TIA?, HTN, UTI, overactive bladder, anemia, breast cancer s/p lumpectomy, [place], TKR admitted 12/26: left leg necrotic infected wounds with surrounding cellulitis pt is hemodynamically stable. wbc 14 from 16. discussed incision and drainage of left leg abscess and excisional debridement of left leg wounds with patient and her . would recommend procedure to be performed in the OR under sedation b ecause patient is tender on exam and unlikely to tolerate local anesthesia at bedside- patient agreed. pt is currently eating and also had lunch at 1pm. patient added to the OR schedule tomorrow. ok to have clear liquids only tomorrow u p to 2 hours prior to OR start time. must be NPO 2 hours prior to surgery. Procedure, benefits, alternatives, complications, and risks discussed with patient. Patient understood and agreed to proceed with the operation. Will obtain cultures and tissue biopsy in the OR. these are chronic wounds that have not improved with antibiotics or LWC. no clinical evidence for necrotizing fascitis or compartment syndrome at this time. unclear etiology. no known PAD. patient has palpable distal pulses. concerned that if left untreated will continue to spread and can develop necrotizing fasciitis or OM. discussed with patient that all unhealthy tissue needs to be debrided to allow for wound to heal. she is aware that wounds will be left open and likely packed daily. will have reducing salon attendant evaluate wound after procedure and give recommendations for discharge. pt will need N set up potentially, but she is out of state and staying with family here in [facility]. She is flying back to [place] next Tuesday. antibiotics as per ID recs _ Breast cancer in female (Malignant neoplasm of unspecified site of unspecified female breast, C50.919) Cellulitis, leg (Cellulitis of unspecified part of limb, L03.119) History of asthma (Personal history of other diseases of the respiratory system, Z87.09) HTN (hypertension) (Essential (primary) hypertension, I10) Leg ulcer (Leg ulcer, [id number]) Necrotizing cellulitis (Cellulitis, unspecified, L03.90) TIA (transient ischemic attack) (Transient cerebral ischemic attack, unspecified, G45.9) Allergies Contrast Dye ( Itching) Tape ( Rash) statins sulfa drugs Problem List Active Problems No qualifying data Inactive Problems No qualifying data Medications Inpatient acetaminophen, 650 mg, 2 ea, ORAL, Q4H, PRN acetaminophen, 650 mg, 2 ea, ORAL, Q6H, PRN albuterol, 2.5 mg, 3 mL, INH, Q2H, PRN Atrovent, 0.5 mg, 2.5 mL, INH, Q2H, PRN cloNIDine, 0.1 mg, 1 Tab, ORAL, Q4H, PRN D10W Bolus, 125 mL, IV, As directed, PRN D10W Bolus, 250 mL, IV, As directed, PRN Dextrose 50% injection, 25 mL, IV PUSH, As directed, PRN Dextrose 50% injection, 50 mL, IV PUSH, As directed, PRN docusate, 100 mg, 1 Cap, ORAL, BID, PRN enalapril, 1.25 mg, 1 mL, IV, Q6H, PRN glucagon, 1 mg, SUBQ, As directed, PRN K-Phos Neutral, 1 Tab, ORAL, As directed, PRN K-Phos Neutral, 2 Tab, ORAL, As directed, PRN ketorolac, 15 mg, 1 mL, IV PUSH, Q6H, PRN lisinopril, 40 mg, 2 Tab, ORAL, DAILY magnesium hydroxide, 30 mL, ORAL, BID, PRN magnesium oxide, 400 mg, 1 Tab, ORAL, BID, PRN magnesium sulfate 2 g in SWFI 50 mL Premix, 2 gm, 50 mL, IVPB, [id number], PRN nalOXone, 0.1 mg, 0.25 mL, IV PUSH, As directed, PRN nitroglycerin, 0.4 mg, 1 Tab, SUBLING, [id number], PRN ondansetron, 4 mg, 2 mL, IV PUSH, Q4H, PRN pantoprazole, 40 mg, 1 Tab, ORAL, ACBkfst potassium bicarbonate-citric acid, 20 mEq, 1 Tab, ORAL, As directed, PRN potassium bicarbonate-citric acid, 40 mEq, 2 Tab, ORAL, As directed, PRN potassium chloride 10 mEq/100 mL intravenous solution, 10 mEq, 100 mL, IVPB, As directed, PRN Santyl, 1 Applic, TOP, DAILY Sodium Chloride 0.9% IV Tubing Flush (ONE) 250 mL, 250 mL, IV Sodium Chloride 0.9% IV Tubing Flush (TWO) 250 mL, 250 mL, IV Sodium Chloride 0.9% Saline Flush, 10 mL, IV FLUSH, Q12H Sodium Chloride 0.9% Saline Flush, 10 mL, IV FLUSH, As directed, PRN solifenacin, 5 mg, 1 Tab, ORAL, QBedtime temazepam, 7.5 mg, 1 Cap, ORAL, QBedtime, PRN traMADol, 50 mg, 1 Tab, ORAL, Q4H, PRN vancomycin, 1000 mg, 200 mL, IVPB, [id number] vancomycin pharmacy to dose, Rx to Dose, N/A, As directed Zosyn Home aspirin, 81 mg, ORAL, QMorning clindamycin 300 mg oral capsule, 300 mg, 1 Cap, ORAL, TID lisinopril, 40 mg, ORAL, DAILY mupirocin topical 2% ointment, 1 Applic, TOP, TID solifenacin 5 mg oral tablet, 5 mg, 1 Tab, ORAL, QBedtime Lab Results Labs All 24H L ab Results Date Glycated Hgbs - Hemoglobin A1C 5.3 % 12/26/24 07:47 PDT Ferritin Level 17 ng/mL 12/26/24 07:47 PDT HDL Cholesterol 56 mg/dL 12/26/24 07:47 PDT LDL Cholesterol, Calc 92 mg/dL 12/26/24 07:47 PDT VLDL Cholesterol, Calc 18 mg/dL 12/26/24 07:47 PDT Total Chol/HDL Ratio 3.0 - 12/26/24 07:47 PDT Transferrin Level 249.7 mg/dL (LOW) 12/26/24 07:47 PDT Vitamin B12 Level 759.0 pg/mL 12/26/24 07:47 PDT Folate Level 11.60 ng/mL 12/26/24 07:47 PDT LDL/HDL Ratio 1.6 - 12/26/24 07:47 PDT TSH Thyroid Stim Hormone 3RD G 2.81 uInt Unit/mL 12/26/24 07:47 PDT MRSA Nares by PCR Negative - 12/26/24 06:24 PDT Auto Neutrophil Percent 76.9 % (HIGH) 12/26/24 07:47 PDT Auto Neutrophil Absolute 10.8 K/uL (HIGH) 12/26/24 07:47 PDT Auto Lymphocyte Percent 10.3 % (LOW) 12/26/24 07:47 PDT Auto Lymphocyte Absolute 1.4 K/uL (LOW) 12/26/24 07:47 PDT Auto Monocyte Percent 5.7 % 12/26/24 07:47 PDT Auto Monocyte Absolute 0.8 K/uL 12/26/24 07:47 PDT Auto Basophil Percent 1.6 % (HIGH) 12/26/24 07:47 PDT Auto Basophil Absolute 0.2 K/uL (HIGH) 12/26/24 07:47 PDT Auto Eosinophil Percent 5.5 % (HIGH) 12/26/24 07:47 PDT Auto Eosinophil Absolute 0.8 K/uL (HIGH) 12/26/24 07:47 PDT WBC 14.0 K/uL (HIGH) 12/26/24 07:47 PDT RBC 5.78 M/uL (HIGH) 12/26/24 07:47 PDT HGB 12.1 gm/dL 12/26/24 07:47 PDT HCT 38.7 % 12/26/24 07:47 PDT MCV 67.0 fL (LOW) 12/26/24 07:47 PDT MCH 20.9 pg (LOW) 12/26/24 07:47 PDT MCHC 31.2 gm/dL 12/26/24 07:47 PDT RDW 19.2 % (HIGH) 12/26/24 07:47 PDT PLT 722 K/uL (HIGH) 12/26/24 07:47 PDT MPV 8.00 fL 12/26/24 07:47 PDT PT - Patient 14.4 sec 12/26/24 07:47 PDT PT - INR 1.1 12/26/24 07:47 PDT Sodium Level 137 mmol/L 12/26/24 07:47 PDT Potassium Level 4.4 mmol/L 12/26/24 07:47 PDT Chloride Level 106 mmol/L 12/26/24 07:47 PDT CO2/Carbon Dioxide 26 mmol/L 12/26/24 07:47 PDT Anion Gap 5.0 - 12/26/24 07:47 PDT Glucose, Random 86 mg/dL 12/26/24 07:47 PDT BUN 20 mg/dL 12/26/24 07:47 PDT Creatinine 0.59 mg/dL (LOW) 12/26/24 07:47 PDT BUN/Creat Ratio 33.9 (HIGH) 12/26/24 07:47 PDT Osmolality, Calculated 276 mOsm/L 12/26/24 07:47 PDT Calcium Level 8.4 mg/dL 12/26/24 07:47 PDT Magnesium Level 2.0 mg/dL 12/26/24 07:47 PDT Phosphorus Level 3.8 mg/dL 12/26/24 07:47 PDT Iron Level 15 mcg/dL (LOW) 12/26/24 07:47 PDT Total Protein 5.7 gm/dL (LOW) 12/26/24 07:47 PDT Albumin Level 3.3 gm/dL 12/26/24 07:47 PDT Globulin Level 2.4 gm/dL 12/26/24 07:47 PDT A/G Ratio 1.4 12/26/24 07:47 PDT Total Cholesterol 166 mg/dL 12/26/24 07:47 PDT Triglycerides 91 mg/dL 12/26/24 07:47 PDT Bilirubin, Total 0.5 mg/dL 12/26/24 07:47 PDT AST 14 IntUnit/L 12/26/24 07:47 PDT ALT 8 IntUnit/L 12/26/24 07:47 PDT ALP 68 IntUnit/L 12/26/24 07:47 PDT BNP B-Natriuretic Peptide 158 pg/mL (HIGH) 12/26/24 07:47 PDT Reticulocyte Count 0.9 % 12/26/24 07:[address] - Absolute 0.05 K/uL 12/26/24 07:47 PDT eGFR 89 mL/min/1.73m2 12/26/24 07:47 PDT Social History A buse/Intent to Harm A buse screen, adult/elderly/domestic: No signs of abuse S afety check complete: Yes C SSRS Risk Level: No risk (0-24) C SSRS Suicide screening: Screening already completed this visit C SSRS Suicide screening ED: Complete the suicide screening R T: [id number] *Alcohol Screen How often do you [...] of the following? None of the above. Lives with: Child(efren), Significant other. Within the past 12 months, have you [...] for yourself or in your household? No. Current or past use? Never. *Tobacco Use Screen Is there a smoker in the household? No. Do you have concerns about tobacco use in household? No. Over the past 30 days, what and how much have you smoked? Never (less than 100 in lifetime). Over the past 30 days, what has been your smokeless tobacco use? Never. Are you ready to quit? N/A. Electronically signed by: MD Liu Lauren Alexandra Signed on: 27-Dec-2024 06:49 PDT 12/27/2024 60 [facility] Surgery Consultation Patient: VIJAY CURRAN Age: 84 years Legal Sex: FEMALE : 1940 Chief Complaint BIB family c/o L-leg ulcer x a few weeks. Pt was seen here last week, instructed to return if no improvement. Reddness observed around wound, pt reports yellow discharge. Pt aox4, resp e/u, raúl w/d/i Reason for Consultation left leg wound History of Present Illness Pt presented to the ER last night with complaints of worsening left leg wound. Wound noticed about 4 weeks ago and it was a 3-4cm in size, may have been a blood fulled blister- unclear by patient's description. She is currently here in [facility] visiting family for [facility]- she is from [place]. 3 weeks ago, a surgeon in [place] evaluated her wound and pt states that he asked her what she wanted him to do and she told him to remove it so in the office, the surgeon excised the wound completely under local anesthesia and it was bleeding a lot and pus came out. She said he packed it with iodoform and the packing remained in place for about 1 week, may have been 2 weeks? Antibiotics given at that time. She went [facility] ago for evaluation and she said the packing was removed and wound was cleaned then bandage was applied and antibiotics given. She continues to have left leg pain. She also noticed that she developed another lesion on the same leg. She denies previous trauma, bug bites, shaving to her left leg. Denies weakness, numbness, tingling. She is able to walk daily. No previous wounds like this before. She takes ASA daily- no other antiplatelets or anticoagulation PMH; TIA?, HTN, UTI, overactive bladder, anemia, breast cancer PSH: lumpectomy, MIREILLE, TKR SH: denies x 3 FH: breast CA Allergies: Sulfa Contrast dye Statins XR L tib/fib There is no evidence of acute fracture or dislocation. No osseous lesions are identified. There are no significant degenerative changes. Soft tissue edema is noted in the region of the calf. Severe vascular calcifications are seen in the mid to lower calf. Focal irregular contour of the posterior soft tissues in the lower aspect of the calf may represent either focal soft tissue wound/laceration or soft tissue depression within aregion of pitting edema Review of Systems remainder of ROS negative Physical Exam Vitals and Measurements T: 97.8 F HR: 86(Monitored) HR: 70 RR: 18 BP: 149/70 SpO2: 97% O2 Delivery: Room air HT: 157.48 cm WT: 65.4 kg(Dose Calc Wt.) WT: 65.4 kg BMI: 26.37 kg/m2 GEN: (+)NAD, (+)cooperative with exam HEENT: head normocephalic, atraumatic RESP: patent airway, no respiratory distress CV: S1, S2 left leg, medial aspect: mid- 6x4cm wound with necrotic tissue (purple in color), fluctuance, some purulent fluid expressed, fibrinous material, surrounding erythema. superior/ below knee- 3x3cm necrotic purple discolored wound with fluctuance, no drainage, surrounding erythema. erythema outlined with skin marker. very tender. LLE ROM intact, sensation intact, palpable PT/DP, soft compartments, no crepitus Assessment/Plan 84 yo female with history of TIA?, HTN, UTI, overactive bladder, anemia, breast cancer s/p lumpectomy, MIREILLE, TKR admitted 12/26: left leg necrotic infected wounds with surrounding cellulitis pt is hemodynamically stable. wbc 14 from 16. discussed incision and drainage of left leg abscess and excisional debridement of left leg wounds with patient and her . would recommend procedure to be performed in the OR under sedation because patient is tender on exam and unlikely to tolerate local anesthesia at bedside- patient agreed. pt is currently eating and also had lunch at 1pm. patient added to the OR schedule tomorrow. ok to have clear liquids only tomorrow up to 2 hours prior to OR start time. must be NPO 2 hours prior to surgery. Procedure, benefits, alternatives, complications, and risks discussed with patient. Patient understood and agreed to proceed with the operation. Will obtain cultures and tissue biopsy in the OR. these are chronic wounds that have not improved with antibiotics or LWC. no clinical evidence for necrotizing fascitis or compartment syndrome at this time. unclear etiology. no known PAD. patient has palpable distal pulses. concerned that if left untreated will continue to spread and can develop necrotizing fasciitis or OM. discussed with patient that all unhealthy tissue needs to be debrided to allow for wound to heal. she is aware that wounds will be left open and likely packed daily. will have reducing salon attendant evaluate wound after procedure and give recommendations for discharge. pt will need N set up potentially, but she is out of state and staying with family here in [facility]. She is flying back to [place] next Tuesday. antibiotics as per ID recs _ Breast cancer in female (Malignant neoplasm of unspecified site of unspecified female breast, C50.919) Cellulitis, leg (Cellulitis of unspecified part of limb, L03.119) History of asthma (Personal history of other diseases of the respiratory system, Z87.09) HTN (hypertension) (Essential (primary) hypertension, I10) Leg ulcer (Leg ulcer, [id number]) Necrotizing cellulitis (Cellulitis, unspecified, L03.90) TIA (transient ischemic attack) (Transient cerebral ischemic attack, unspecified, G45.9) Allergies Contrast Dye (Itching) Tape (Rash) statins sulfa drugs Problem List Active Problems No qualifying data Inactive Problems No qualifying data Medications Inpatient acetaminophen, 650 mg, 2 ea, ORAL, Q4H, PRN acetaminophen, 650 mg, 2 ea, ORAL, Q6H, PRN albuterol, 2.5 mg, 3 mL, INH, Q2H, PRN Atrovent, 0.5 mg, 2.5 mL, INH, Q2H, PRN cloNIDine, 0.1 mg, 1 Tab, ORAL, Q4H, PRN D10W Bolus, 125 mL, IV, As directed, PRN D10W Bolus, 250 mL, IV, As directed, PRN Dextrose 50% injection, 25 mL, IV PUSH, As directed, PRN Dextrose 50% injection, 50 mL, IV PUSH, As directed, PRN docusate, 100 mg, 1 Cap, ORAL, BID, PRN enalapril, 1.25 mg, 1 mL, IV, Q6H, PRN glucagon, 1 mg, SUBQ, As directed, PRN K-Phos Neutral, 1 Tab, ORAL, As directed, PRN K-Phos Neutral, 2 Tab, ORAL, As directed, PRN ketorolac, 15 mg, 1 mL, IV PUSH, Q6H, PRN lisinopril, 40 mg, 2 Tab, ORAL, DAILY magnesium hydroxide, 30 mL, ORAL, BID, PRN magnesium oxide, 400 mg, 1 Tab, ORAL, BID, PRN magnesium sulfate 2 g in SWFI 50 mL Premix, 2 gm, 50 mL, IVPB, [id number], PRN nalOXone, 0.1 mg, 0.25 mL, IV PUSH, As directed, PRN nitroglycerin, 0.4 mg, 1 Tab, SUBLING, [id number], PRN ondansetron, 4 mg, 2 mL, IV PUSH, Q4H, PRN pantoprazole, 40 mg, 1 Tab, ORAL, ACBkfst potassium bicarbonate-citric acid, 20 mEq, 1 Tab, ORAL, As directed, PRN potassium bicarbonate-citric acid, 40 mEq, 2 Tab, ORAL, As directed, PRN potassium chloride 10 mEq/100 mL intravenous solution, 10 mEq, 100 mL, IVPB, As directed, PRN Santyl, 1 Applic, TOP, DAILY Sodium Chloride 0.9% IV Tubing Flush (ONE) 250 mL, 250 mL, IV Sodium Chloride 0.9% IV Tubing Flush (TWO) 250 mL, 250 mL, IV Sodium Chloride 0.9% Saline Flush, 10 mL, IV FLUSH, Q12H Sodium Chloride 0.9% Saline Flush, 10 mL, IV FLUSH, As directed, PRN solifenacin, 5 mg, 1 Tab, ORAL, QBedtime temazepam, 7.5 mg, 1 Cap, ORAL, QBedtime, PRN traMADol, 50 mg, 1 Tab, ORAL, Q4H, PRN vancomycin, 1000 mg, 200 mL, IVPB, [id number] vancomycin pharmacy to dose, Rx to Dose, N/A, As directed Zosyn Home aspirin, 81 mg, ORAL, QMorning clindamycin 300 mg oral capsule, 300 mg, 1 Cap, ORAL, TID lisinopril, 40 mg, ORAL, DAILY mupirocin topical 2% ointment, 1 Applic, TOP, TID solifenacin 5 mg oral tablet, 5 mg, 1 Tab, ORAL, QBedtime Lab Results Labs All 24H Lab Results Date Glycated Hgbs - Hemoglobin A1C 5.3 % 12/26/24 07:47 PDT Ferritin Level 17 ng/mL 12/26/24 07:47 PDT HDL Cholesterol 56 mg/dL 12/26/24 07:47 PDT LDL Cholesterol, Calc 92 mg/dL 12/26/24 07:47 PDT VLDL Cholesterol, Calc 18 mg/dL 12/26/24 07:47 PDT Total Chol/HDL Ratio 3.0 - 12/26/24 07:47 PDT Transferrin Level 249.7 mg/dL (LOW) 12/26/24 07:47 PDT Vitamin B12 Level 759.0 pg/mL 12/26/24 07:47 PDT Folate Level 11.60 ng/mL 12/26/24 07:47 PDT LDL/HDL Ratio 1.6 - 12/26/24 07:47 PDT TSH Thyroid Stim Hormone 3RD G 2.81 uInt Unit/mL 12/26/24 07:47 PDT MRSA Nares by PCR Negative - 12/26/24 06:24 PDT Auto Neutrophil Percent 76.9 % (HIGH) 12/26/24 07:47 PDT Auto Neutrophil Absolute 10.8 K/uL (HIGH) 12/26/24 07:47 PDT Auto Lymphocyte Percent 10.3 % (LOW) 12/26/24 07:47 PDT Auto Lymphocyte Absolute 1.4 K/uL (LOW) 12/26/24 07:47 PDT Auto Monocyte Percent 5.7 % 12/26/24 07:47 PDT Auto Monocyte Absolute 0.8 K/uL 12/26/24 07:47 PDT Auto Basophil Percent 1.6 % (HIGH) 12/26/24 07:47 PDT Auto Basophil Absolute 0.2 K/uL (HIGH) 12/26/24 07:47 PDT Auto Eosinophil Percent 5.5 % (HIGH) 12/26/24 07:47 PDT Auto Eosinophil Absolute 0.8 K/uL (HIGH) 12/26/24 07:47 PDT WBC 14.0 K/uL (HIGH) 12/26/24 07:47 PDT RBC 5.78 M/uL (HIGH) 12/26/24 07:47 PDT HGB 12.1 gm/dL 12/26/24 07:47 PDT HCT 38.7 % 12/26/24 07:47 PDT MCV 67.0 fL (LOW) 12/26/24 07:47 PDT MCH 20.9 pg (LOW) 12/26/24 07:47 PDT MCHC 31.2 gm/dL 12/26/24 07:47 PDT RDW 19.2 % (HIGH) 12/26/24 07:47 PDT PLT 722 K/uL (HIGH) 12/26/24 07:47 PDT MPV 8.00 fL 12/26/24 07:47 PDT PT - Patient 14.4 sec 12/26/24 07:47 PDT PT - INR 1.1 12/26/24 07:47 PDT Sodium Level 137 mmol/L 12/26/24 07:47 PDT Potassium Level 4.4 mmol/L 12/26/24 07:47 PDT Chloride Level 106 mmol/L 12/26/24 07:47 PDT CO2/Carbon Dioxide 26 mmol/L 12/26/24 07:47 PDT Anion Gap 5.0 - 12/26/24 07:47 PDT Glucose, Random 86 mg/dL 12/26/24 07:47 PDT BUN 20 mg/dL 12/26/24 07:47 PDT Creatinine 0.59 mg/dL (LOW) 12/26/24 07:47 PDT BUN/Creat Ratio 33.9 (HIGH) 12/26/24 07:47 PDT Osmolality, Calculated 276 mOsm/L 12/26/24 07:47 PDT Calcium Level 8.4 mg/dL 12/26/24 07:47 PDT Magnesium Level 2.0 mg/dL 12/26/24 07:47 PDT Phosphorus Level 3.8 mg/dL 12/26/24 07:47 PDT Iron Level 15 mcg/dL (LOW) 12/26/24 07:47 PDT Total Protein 5.7 gm/dL (LOW) 12/26/24 07:47 PDT Albumin Level 3.3 gm/dL 12/26/24 07:47 PDT Globulin Level 2.4 gm/dL 12/26/24 07:47 PDT A/G Ratio 1.4 12/26/24 07:47 PDT Total Cholesterol 166 mg/dL 12/26/24 07:47 PDT Triglycerides 91 mg/dL 12/26/24 07:47 PDT Bilirubin, Total 0.5 mg/dL 12/26/24 07:47 PDT AST 14 IntUnit/L 12/26/24 07:47 PDT ALT 8 IntUnit/L 12/26/24 07:47 PDT ALP 68 IntUnit/L 12/26/24 07:47 PDT BNP B-Natriuretic Peptide 158 pg/mL (HIGH) 12/26/24 07:47 PDT Reticulocyte Count 0.9 % 12/26/24 07:[address] - Absolute 0.05 K/uL 12/26/24 07:47 PDT eGFR 89 mL/min/1.73m2 12/26/24 07:47 PDT Social History Abuse/Intent to Harm Abuse screen, adult/elderly/domestic: No signs of abuse Safety check complete: Yes CSSRS Risk Level: No risk (0-24) CSSRS Suicide screening: Screening already completed this visit CSSRS Suicide screening ED: Complete the suicide [...] of the following? None of the above. Lives with: Child(efren), Significant other. Within the past 12 months, have you [...] for yourself or in your household? No. Current or past use? Never. *Tobacco Use Screen Is there a smoker in the household? No. Do you have concerns about tobacco use in household? No. Over the past 30 days, what and how much have you smoked? Never (less than 100 in lifetime). Over the past 30 days, what has been your smokeless tobacco use? Never. Are you ready to quit? N/A. [id number] Female 12/27/2024 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 HEENT: NCAT. Cardiovascular: NSR. Respiratory: CTAB. Gastrointestinal: Soft, non-distended, non-tender. Genitourinary: No suprapubic tenderness. No flank pain. Musculoskeletal: left calf wound with slough and surrounding erythema. Neurological: Alert and interactive with normal affect. Grossly intact motor and sensory examination. Assessment/Plan 84-year-old female with the onset about 2 to 3 weeks ago a blister on her left medial mid calf. This was popped but continued to worsen. Was seen in urgent care there was sent her to her primary care who sent her to a surgeon who did an in office I&D cauterized and started antibiotics. It continued to worsen, was seen in the ER, started on Levaquin and patient returns with worsening pain and erythema extending from her upper medial calf to her ankle. Patient has persistent burning and sharp pain. Patient denies any recent travel camping insect bites or any other skin lesions on her body. Patient has no thigh lymphangitis tenderness or inguinal adenopathy or pain. Denies fever chills sweats nausea vomiting diarrhea URI symptoms. Labs: WBC 16.4, ESR 33, CRP 1.4, lactic 0.83 Patient was seen at [facility] urgent care in [facility] telephone number [phone]. Son thinks that they may have done a wound culture thereLast week but has not heard of any results. 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 Echevarria, recs appreciated - consulted Surgeon/Dr. Liu, recs appreciated #Hx of TIA - holding aspirin for possible debridement #HTN - c/w lisinopril, monitor vitals #Overactive bladder - cw solifenacin #Questionable history of breast cancer treated with lumpectomy alone a few months ago - Plan follow-up with PCP for ongoing monitoring and screening Diet: low na DVT ppx: SCDs, chem ppx held for possible intervention GI ppx: PTX Prognosis: Guarded, dependent on patient's response to treatment Full Code Dispo: - ongoing diagnostics and treatment planning Allergies Contrast Dye (Itching) Tape (Rash) statins sulfa drugs Code Status: Full Code Medications Scheduled: collagenase 250 Units/gm Oint 30 gm 1 Applic, TOP, DAILY lisinopril 20 mg Tab 40 mg 2 Tab, ORAL, DAILY pantoprazole 40 mg EC Tab 40 mg 1 Tab, ORAL, ACBkfst piperacillin-tazobactam 3.375 gm 1 Vial, IVPB, [id number] sodium chloride 0.9%, 10 mL Flush 10 mL, IV FLUSH, Q12H solifenacin 5 mg Tab 5 mg 1 Tab, ORAL, QBedtime vancomycin / D5W 1,000 mg 200 mL, IVPB, [id number] vancomycin pharmacy to dose Rx to Dose, N/A, As directed Continuous: sodium chloride 0.9% 250 mL 250 mL, IV, 100 mL/hr sodium chloride 0.9% 250 mL 250 mL, IV, 100 mL/hr PRN: acetaminophen 325 mg Tab 650 mg 2 ea, ORAL, Q4H acetaminophen 325 mg Tab 650 mg 2 ea, ORAL, Q6H albuterol 2.5 mg/3 mL (0.083%) Inh Soln 2.5 mg 3 mL, INH, Q2H cloNIDine 0.1 mg Tab 0.1 mg 1 Tab, ORAL, Q4H Dextrose 10% 125 mL, IV, As directed Dextrose 10% 250 mL, IV, As directed Dextrose 50% Inj 50 mL Syr 25 mL, IV PUSH, As directed Dextrose 50% Inj 50 mL Syr 50 mL, IV PUSH, As directed docusate sodium 100 mg Cap 100 mg 1 Cap, ORAL, BID enalaprilat 1.25 mg/mL, 1 mL Inj 1.25 mg 1 mL, IV, Q6H glucagon 1 mg Inj SDV 1 mg, SUBQ, As directed ipratropium 0.5mg/2.5 mL (0.02%) Neb Amp 0.5 mg 2.5 mL, INH, Q2H K-Bicarb- citric acid 20 mEq Effer Tab 20 mEq 1 Tab, ORAL, As directed K-Bicarb- citric acid 20 mEq Effer Tab 40 mEq 2 Tab, ORAL, As directed K-phos neutral 250 mg TAB 1 Tab, ORAL, As directed K-phos neutral 250 mg TAB 2 Tab, ORAL, As directed ketorolac 15 mg/mL, 1 mL Inj 15 mg 1 mL, IV PUSH, Q6H magnesium Oxide 400 mg Tab 400 mg 1 Tab, ORAL, BID magnesium sulfate / SWFI 2 gm 50 mL, IVPB, [id number] Milk of Magnesia 30 mL 30 mL, ORAL, BID nalOXone 0.4 mg/mL, 1 mL Inj 0.1 mg 0.25 mL, IV PUSH, As directed nitroglycerin 0.4 mg SL Tab #25 0.4 mg 1 Tab, SUBLING, [id number] ondansetron 2 mg/mL, 2 mL Inj 4 mg 2 mL, IV PUSH, Q4H potassium chloride 10 mEq 100 mL, IVPB, As directed sodium chloride 0.9%, 10 mL Flush 10 mL, IV FLUSH, As directed temazepam 7.5 mg Cap 7.5 mg 1 Cap, ORAL, QBedtime traMADol 50 mg Tab 50 mg 1 Tab, ORAL, Q4H Home Medications (5) Active aspirin 81 mg, ORAL, QMorning clindamycin 300 mg oral capsule 300 mg = 1 Cap, ORAL, TID lisinopril 40 mg, ORAL, DAILY mupirocin topical 2% ointment 1 Applic, TOP, TID solifenacin 5 mg oral tablet 5 mg = 1 Tab, ORAL, QBedtime Lab Results Labs All 24H Lab Results Date Glycated Hgbs - Hemoglobin A1C 5.3 % 12/26/24 07:47 PDT Ferritin Level 17 ng/mL 12/26/24 07:47 PDT CRP C-Reactive Protein 1.40 mg/dL (HIGH) 12/25/24 20:44 PDT HDL Cholesterol 56 mg/dL 12/26/24 07:47 PDT LDL Cholesterol, Calc 92 mg/dL 12/26/24 07:47 PDT VLDL Cholesterol, Calc 18 mg/dL 12/26/24 07:47 PDT Total Chol/HDL Ratio 3.0 - 12/26/24 07:47 PDT Transferrin Level 249.7 mg/dL (LOW) 12/26/24 07:47 PDT Vitamin B12 Level 759.0 pg/mL 12/26/24 07:47 PDT Folate Level 11.60 ng/mL 12/26/24 07:47 PDT LDL/HDL Ratio 1.6 - 12/26/24 07:47 PDT TSH Thyroid Stim Hormone 3RD G 2.81 uInt Unit/mL 12/26/24 07:47 PDT MRSA Nares by PCR Negative - 12/26/24 06:24 PDT Auto NRBC % 0 % 12/25/24 20:44 PDT Lactic Acid WB 0.83 mmol/L 12/25/24 20:44 PDT Auto Neutrophil Percent 76.9 % (HIGH) 12/26/24 07:47 PDT Auto Neutrophil Absolute 10.8 K/uL (HIGH) 12/26/24 07:47 PDT Auto Lymphocyte Percent 10.3 % (LOW) 12/26/24 07:47 PDT Auto Lymphocyte Absolute 1.4 K/uL (LOW) 12/26/24 07:47 PDT Auto Monocyte Percent 5.7 % 12/26/24 07:47 PDT Auto Monocyte Absolute 0.8 K/uL 12/26/24 07:47 PDT Auto Basophil Percent 1.6 % (HIGH) 12/26/24 07:47 PDT Auto Basophil Absolute 0.2 K/uL (HIGH) 12/26/24 07:47 PDT Auto Eosinophil Percent 5.5 % (HIGH) 12/26/24 07:47 PDT Auto Eosinophil Absolute 0.8 K/uL (HIGH) 12/26/24 07:47 PDT WBC 14.0 K/uL (HIGH) 12/26/24 07:47 PDT RBC 5.78 M/uL (HIGH) 12/26/24 07:47 PDT HGB 12.1 gm/dL 12/26/24 07:47 PDT HCT 38.7 % 12/26/24 07:47 PDT MCV 67.0 fL (LOW) 12/26/24 07:47 PDT MCH 20.9 pg (LOW) 12/26/24 07:47 PDT MCHC 31.2 gm/dL 12/26/24 07:47 PDT RDW 19.2 % (HIGH) 12/26/24 07:47 PDT PLT 722 K/uL (HIGH) 12/26/24 07:47 PDT MPV 8.00 fL 12/26/24 07:47 PDT Sedimentation Rate Auto 33 mm/hr (HIGH) 12/25/24 20:44 PDT PT - Patient 14.4 sec 12/26/24 07:47 PDT PT - INR 1.1 12/26/24 07:47 PDT Sodium Level 137 mmol/L 12/26/24 07:47 PDT Potassium Level 4.4 mmol/L 12/26/24 07:47 PDT Chloride Level 106 mmol/L 12/26/24 07:47 PDT CO2/Carbon Dioxide 26 mmol/L 12/26/24 07:47 PDT Anion Gap 5.0 - 12/26/24 07:47 PDT Glucose, Random 86 mg/dL 12/26/24 07:47 PDT BUN 20 mg/dL 12/26/24 07:47 PDT Creatinine 0.59 mg/dL (LOW) 12/26/24 07:47 PDT BUN/Creat Ratio 33.9 (HIGH) 12/26/24 07:47 PDT Osmolality, Calculated 276 mOsm/L 12/26/24 07:47 PDT Calcium Level 8.4 mg/dL 12/26/24 07:47 PDT Magnesium Level 2.0 mg/dL 12/26/24 07:47 PDT Phosphorus Level 3.8 mg/dL 12/26/24 07:47 PDT Iron Level 15 mcg/dL (LOW) 12/26/24 07:47 PDT Total Protein 5.7 gm/dL (LOW) 12/26/24 07:47 PDT Albumin Level 3.3 gm/dL 12/26/24 07:47 PDT Globulin Level 2.4 gm/dL 12/26/24 07:47 PDT A/G Ratio 1.4 12/26/24 07:47 PDT Total Cholesterol 166 mg/dL 12/26/24 07:47 PDT Triglycerides 91 mg/dL 12/26/24 07:47 PDT Bilirubin, Total 0.5 mg/dL 12/26/24 07:47 PDT AST 14 IntUnit/L 12/26/24 07:47 PDT ALT 8 IntUnit/L 12/26/24 07:47 PDT ALP 68 IntUnit/L 12/26/24 07:47 PDT BNP B-Natriuretic Peptide 158 pg/mL (HIGH) 12/26/24 07:47 PDT Reticulocyte Count 0.9 % 12/26/24 07:[address] - Absolute 0.05 K/uL 12/26/24 07:47 PDT eGFR 89 mL/min/1.73m2 12/26/24 07:47 PDT Diagnostics General Diagnostic Result Type: Tibia/Fibula Lt 2 Vw Result Date: December 26, 2024 00:35 PDT Reason For Exam: Cellulitis REPORT: Exam: Left Tibia/Fibula, 2-views Indication: Pain, cellulitis, left leg ulcer. Comparison: None available. Technique: AP and lateral views of the left tibia/fibula are provided. Findings/Impression: There is no evidence of acute fracture or dislocation. No osseous lesions are identified. There are no significant degenerative changes. Soft tissue edema is noted in the region of the calf. Severe vascular calcifications are seen in the mid to lower calf. Focal irregular contour of the posterior soft tissues in the lower aspect of the calf may represent either focal soft tissue wound/laceration or soft tissue depression within a region of pitting edema [id number] Female 12/27/2024 [facility] History and Physical Examination Patient: VIJAY CURRAN ? Age: 84 years Legal Sex: FEMALE : 1940 Chief Complaint BIB family c/o L-leg ulcer x a few weeks. Pt was seen here last week, instructed to return if no improvement. Reddness observed around wound, pt reports yellow discharge. Pt aox4, resp e/u, raúl w/d/i Problem List Active Problems No qualifying data History of Present Illness 84-year-old female with the onset about 2 to 3 weeks ago a blister on her left medial mid calf.? This was popped but continued to worsen. Was seen in urgent care there was sent her to her primary care who sent her to a surgeon who did an in office I&D cauterized and started antibiotics. It continued to worsen, was seen in the ER, started on Levaquin and patient returns with worsening pain and erythema extending from her upper medial calf to her ankle. Patient has persistent burning and sharp pain. Patient denies any recent travel camping insect bites or any other skin lesions on her body. Patient has no thigh lymphangitis tenderness or inguinal adenopathy or pain. Denies fever chills sweats nausea vomiting diarrhea URI symptoms. Labs: WBC 16.4, ESR 33, CRP 1.4, lactic 0.83 Patient was seen at [facility] urgent care in [facility] telephone number [phone]. Son thinks that they may have done a wound culture thereLast week but has not heard of any results. Past medical history: Questionable TIAs versus migraines versus benign positional vertigo versus other. Patient takes aspirin 81 mg daily Hypertension on lisinopril Childhood asthma now resolved AMS with UTI in 2022 Overactive bladder Microcytic anemia with elevated RBCs and platelets of 800,000 Past surgical history: Breast lumpectomy told of cancer but no further treatments [facility] Allergies: Sulfa Contrast dye Statins Medications: Clindamycin 300 3 times daily Levaquin 500 daily Lisinopril 40 mg daily Solifenacin 5 mg at at bedtime Aspirin 81 mg daily Social history: Patient does not smoke drink or use drugs Family history: Mom had breast cancer Full CODE STATUS Review of Systems Constitutional: Negative except as noted in HPI. EENT: Negative except as noted in HPI. Respiratory: Negative except as noted in HPI. Cardiovascular: Negative except as noted in HPI. Lymphatic: Negative except as noted in HPI. Gastrointestinal: Negative except as noted in HPI. Genitourinary: Negative except as noted in HPI. LNMP: _ (if applicable) Musculoskeletal: Negative except as noted in HPI. Skin: Negative except as noted in HPI. Neurologic: Negative except as noted in HPI. Psychiatric: Negative except as noted in HPI. Physical Exam Vitals and Measurements T: 97.3 F HR: 69(Monitored) HR: 65 RR: 20 BP: 155/70 SpO2: 98% O2 Delivery: Room air HT: 1 57.5 cm W T: 6 5.4 kg(Dose Calc Wt.) W T: 6 5.4 kg B [place]: 2 9.79 kg/m2 S hock Index: 0 .481 12/26/24 00:00 General Appearance: No acute distress. HEENT: Normocephalic. PERRL. Normal tympanic membranes. No nasal discharge. Oral cavity and pharynx normal. Teeth and gingiva in good general condition. Neck supple, non-tender without lymphadenopathy, masses or thyromegaly. Cardiac: Normal rate and rhythm. There is no peripheral edema, cyanosis or pallor. Lungs: Clear to auscultation and percussion without rales, rhonchi, wheezing or diminished breath sounds. Abdomen: Positive bowel sounds. Soft, non-distended, non-tender. No guarding or rebound. No masses. Musculoskeletal: No joint deformity, erythema, or tenderness. Full ROM all joints. Normal gait. Neurological: Normal motor, sensory, and mental status examination. Reflexes 2+ throughout. Skin: Skin normal color, texture and turgor with no rash present. N ecrotizing 1 and half by 2-1/2 inches l esion on left mid medial calf w ith smaller 1 inch lesion above it. Genitalia: Deferred. Psychiatric: Demonstrated good judgment and reason and normal affect during examination. 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 Seen in ER given antibiotics returns today worsened and is admitted for IV Zosyn and Vanco. They have done culture at [facility] at [phone] culture done in the ER last night as well. Doubt leprosy as lesions are painful, but may have MRSA, less likely cancer or melanoma. Plan: Zosyn and Vanco, consult Dr. Lakesha Craig and and wound care nurse. Will try to get blood culture results from urgent care in the daytime. Questionable TIAs versus migraines versus benign positional vertigo versus other. Patient takes aspirin 81 mg daily Hypertension on lisinopril. Plan continue lisinopril Childhood asthma now resolved AMS with UTI in 2022 Overactive bladder on solifenacin Microcytic anemia with elevated RBCs and platelets of 800,000. Plan check iron ferritin B12 folic acid reticulocyte count LDH. Consider hematology consult Allergy to sulfa and contrast dye and statins Questionable history of breast cancer treated with lumpectomy alone a few months ago. Plan follow-up with PCP GI prophylaxis with Protonix DVT prophylaxis with heparin after surgical consult Full CODE STATUS Ordered: Admission Status Culture Aerobic Orders: acetaminophen (acetaminophen), 650 mg, ORAL, Q4H, PRN, Pain-Mild (Scale 1-3), TAB, 12/25/24 23:34:00 PDT acetaminophen (acetaminophen), 650 mg, ORAL, Q6H, PRN, Temperature, TAB, 12/25/24 23:34:00 PDT acetaminophen (acetaminophen), 650 mg, RECTAL, Q4H, PRN, Pain-Mild (Scale 1-3), SUPP, 12/25/24 23:34:00 PDT albuterol (albuterol), 2.5 mg, INH, Q2H, PRN, Shortness of breath, NEB AMP, 04/15/25 23:34:00 PDT cloNIDine (cloNIDine), 0.1 mg, ORAL, Q4H, PRN, Blood Pressure, TAB, 12/25/24:34:00 PDT Dextrose 10% in Water (D10W Bolus), = 250 mL, IV, As directed, PRN, hypoglycemia, IV SOLN, 12/25/24 23:34:00 PDT, 937.5 mL/hr, 16 min Dextrose 10% in Water (D10W Bolus), = 125 mL, IV, As directed, PRN, hypoglycemia, IV SOLN, 12/25/24 23:34:00 PDT, 937.5 mL/hr, 8 min diazePAM (Valium), 2.5 mg, IV, TID, PRN, Anxiety, INJ, 12/25/24 23:45:00 PDT docusate (docusate), 100 mg, ORAL, BID, PRN, Constipation, CAP, 12/25/24:34:00 PDT enalapril (enalapril), 1.25 mg, IV, Q6H, PRN, Blood Pressure, INJ, 12/25/24 23:34:00 PDT glucagon (glucagon), 1 mg, SUBQ, As directed, PRN, Blood Glucose, INJ, 12/25/24:34:00 PDT glucose (Dextrose 50% injection), = 25 mL, IV PUSH, As directed, PRN, hypoglycemia, INJ, 12/25/24 23:34:00 PDT glucose (Dextrose 50% injection), = 50 mL, IV PUSH, As directed, PRN, hypoglycemia, INJ, 12/25/24:34:00 PDT ipratropium (Atrovent), 0.5 mg, INH, Q2H, PRN, Shortness of breath, NEB AMP, 12/25/24 23:34:00 PDT iron sucrose (Venofer), 200 mg = 10 mL, IVPB, DAILY, PRN, Other (see comment), INJ, 12/25/24 23:34:00 PDT, 5 Time(s)/Dose(s), Stop date Limited # of times, 73.33 mL/hr, 1.5 hr ketorolac (ketorolac), 15 mg, IV PUSH, Q6H, PRN, Pain-Severe (Scale 7-10), INJ, 12/25/24 23:34:00 PDT, 5 Day(s), Stop date 12/30/24 23:33:00 PDT lisinopril (lisinopril), 40 mg, ORAL, DAILY, TAB, 12/25/24 23:25:00 PDT LORazepam (LORazepam), 0.5 mg, ORAL, TID, PRN, Anxiety, TAB, 12/25/24 23:34:00 PDT magnesium hydroxide (magnesium hydroxide), = 30 mL, ORAL, BID, PRN, Constipation, ORAL SUSP, 12/25/24 23:34:00 PDT magnesium oxide (magnesium oxide), 400 mg, ORAL, BID, PRN, Magnesium Replacement, TAB, 12/25/24:34:00 PDT magnesium sulfate (magnesium sulfate 2 g in SWFI 50 mL Premix), 2 gm = 50 mL, IVPB, [id number], PRN, Magnesium Replacement, IV SOLN, 12/25/24 23:34:00 PDT, 50 mL/hr, 60 min nalOXone (nalOXone), 0.1 mg, IV PUSH, As directed, Indication = Sedation reversal/rescue, PRN, Sedation, INJ, 12/25/24 23:34:00 PDT nitroglycerin (nitroglycerin), 0.4 mg, SUBLING, [id number], PRN, Chest Pain, TAB SUBLING, 12/25/24 23:34:00 PDT, 3 Time(s)/Dose(s), Stop date Limited # of times ondansetron (ondansetron), 4 mg, IV PUSH, Q4H, PRN, Nausea/Vomiting, INJ, 12/25/24 23:34:00 PDT pantoprazole (pantoprazole), 40 mg, ORAL, ACBkfst, EC TAB, 12/26/24 7:30:00 PDT piperacillin-tazobactam (Zosyn), 3.375 gm = 1 Vial, IVPB, [id number], Indication= Skin/Soft tissue infxn, necrotizing, VIAL, 12/26/24 3:00:00 PDT, 7 Day(s), Stop date 01/02/25 2:59:00 PDT, 25 mL/hr, 4 hr, Extended infusion, standard dose potassium bicarbonate-citric acid (potassium bicarbonate-citric acid), 20 mEq, ORAL, As directed, PRN, Potassium Replacement, EFFER TAB, 12/25/24 23:34:00 PDT potassium bicarbonate-citric acid (potassium bicarbonate-citric acid), 40 mEq, ORAL, As directed, PRN, Potassium Replacement, EFFER TAB, 12/25/24 23:34:00 PDT potassium chloride (potassium chloride 10 mEq/100 mL intravenous solution), 10 mEq = 100 mL, IVPB, As directed, PRN, Potassium Replacement, IV SOLN, 12/25/24 23:34:00 PDT, 100 mL/hr, 60 min potassium phosphate-sodium phosphate (K-Phos Neutral), = 2 Tab, ORAL, As directed, PRN, Phosphorus Replacement, TAB, 12/25/24 23:34:00 PDT potassium phosphate-sodium phosphate (K-Phos Neutral), = 1 Tab, ORAL, As directed, PRN, Phosphorus Replacement, TAB, 12/25/24 23:34:00 PDT sodium chloride 0.9% (Sodium Chloride 0.9% Saline Flush), = 10 mL, IV FLUSH, As directed, PRN, IV Access Flush, INJ, 12/25/24 23:34:00 PDT sodium chloride 0.9% (Sodium Chloride 0.9% Saline Flush), = 10 mL, IV FLUSH, Q12H, INJ, 12/25/24 23:34:00 PDT sodium chloride 0.9% 250 mL (Sodium Chloride 0.9% IV Tubing Flush (TWO) 250 mL), 250 mL, IV, 12/25/24 23:34:00 PDT, 100 mL/hr, 2.5 hr, Order Weight 65.4, kg, 1.69, m2 sodium chloride 0.9% 250 mL (Sodium Chloride 0.9% IV Tubing Flush (ONE) 250 mL), 250 mL, IV, 12/25/24 23:34:00 PDT, 100 mL/hr, 2.5 hr, Order Weight 65.4, kg, 1.69, m2 solifenacin (solifenacin), 5 mg, ORAL, QBedtime, TAB, 12/26/24 21:00:00 PDT temazepam (temazepam), 7.5 mg, ORAL, QBedtime, PRN, Insomnia, CAP, 12/25/24 23:34:00 PDT traMADol (traMADol), 50 mg, ORAL, Q4H, PRN, Pain-Moderate (Scale 4-6), TAB, 12/25/24 23:34:00 PDT vancomycin pharmacy to dose (vancomycin pharmacy to dose), Rx to Dose, N/A, As directed, Indication= Skin/Soft tissue infxn, necrotizing, IV SOLN, 12/25/24 23:39:00 PDT A1C Hemoglobin NOT HPLC B Type Natriuretic Peptide BNP Basic Metabolic Panel BMP Bedrest with BRP CBC w Differential Communication Communication Communication Comprehensive Metabolic Panel CMP Fall Risk Screen Ferritin Level Fingerstick/Capillary Blood Sugar Folate Level Full Code Hypoglycemia Protocol Intermittent Pneumatic Compression Device Iron Level Lipid Panel Magnesium Level Notify Physician Notify Physician Notify Physician Notify Physician Notify Physician Nursing Communication Electrolyte Replacement Nursing Communication Phosphate Replacement Phosphorus Level Physician Consult Precautions Prothrombin Time PT w INR Rapid Response Protocol Orders or Emergency Response per Protocol Reticulocyte Count Saline Lock Protocol (18 years and older) Sodium Restricted Diet Tibia/Fibula Lt 2 Vw Transferrin Level TSH Thyroid Stim Horm 3rd Generation Vitamin B12 Level Wound/Enterostomal Therapist Consult Allergies Contrast Dye ( Itching) Tape ( Rash) statins sulfa drugs Past Medical History No qualifying data available. Social History A buse/Intent to Harm Abuse screen, adult/elderly/domestic: No signs of abuse Safety check complete: Yes CSSRS Risk Level: No risk (0-24) CSSRS Suicide screening: Screening already completed this visit CSSRS Suicide screening ED: Complete the suicide [...] Never. Are you ready to quit? No. Medications Inpatient acetaminophen, 650 mg, 1 Supp, RECTAL, Q4H, PRN acetaminophen, 650 mg, 2 ea, ORAL, Q4H, PRN acetaminophen, 650 mg, 2 ea, ORAL, Q6H, PRN albuterol, 2.5 mg, 3 mL, INH, Q2H, PRN Atrovent, 0.5 mg, 2.5 mL, INH, Q2H, PRN cloNIDine, 0.1 mg, 1 Tab, ORAL, Q4H, PRN D10W Bolus, 125 mL, IV, As directed, PRN D10W Bolus, 250 mL, IV, As directed, PRN Dextrose 50% injection, 25 mL, IV PUSH, As directed, PRN Dextrose 50% injection, 50 mL, IV PUSH, As directed, PRN docusate, 100 mg, 1 Cap, ORAL, BID, PRN enalapril, 1.25 mg, 1 mL, IV, Q6H, PRN glucagon, 1 mg, SUBQ, As directed, PRN K-Phos Neutral, 1 Tab, ORAL, As directed, PRN K-Phos Neutral, 2 Tab, ORAL, As directed, PRN ketorolac, 15 mg, 1 mL, IV PUSH, Q6H, PRN lisinopril, 40 mg, 2 Tab, ORAL, DAILY LORazepam, 0.5 mg, 1 Tab, ORAL, TID, PRN magnesium hydroxide, 30 mL, ORAL, BID, PRN magnesium oxide, 400 mg, 1 Tab, ORAL, BID, PRN magnesium sulfate 2 g in SWFI 50 mL Premix, 2 gm, 50 mL, IVPB, [id number], PRN nalOXone, 0.1 mg, 0.25 mL, IV PUSH, As directed, PRN nitroglycerin, 0.4 mg, 1 Tab, SUBLING, [id number], PRN ondansetron, 4 mg, 2 mL, IV PUSH, Q4H, PRN pantoprazole, 40 mg, 1 Tab, ORAL, ACBkfst potassium bicarbonate-citric acid, 20 mEq, 1 Tab, ORAL, As directed, PRN potassium bicarbonate-citric acid, 40 mEq, 2 Tab, ORAL, As directed, PRN potassium chloride 10 mEq/100 mL intravenous solution, 10 mEq, 100 mL, IVPB, As directed, PRN Sodium Chloride 0.9% IV Tubing Flush (ONE) 250 mL, 250 mL, IV Sodium Chloride 0.9% IV Tubing Flush (TWO) 250 mL, 250 mL, IV Sodium Chloride 0.9% Saline Flush, 10 mL, IV FLUSH, Q12H Sodium Chloride 0.9% Saline Flush, 10 mL, IV FLUSH, As directed, PRN solifenacin, 5 mg, 1 Tab, ORAL, QBedtime temazepam, 7.5 mg, 1 Cap, ORAL, QBedtime, PRN traMADol, 50 mg, 1 Tab, ORAL, Q4H, PRN Valium, 2.5 mg, 0.5 mL, IV, TID, PRN vancomycin pharmacy to dose, Rx to Dose, N/A, As directed Venofer Zosyn Home aspirin, 81 mg, ORAL, QMorning clindamycin 300 mg oral capsule, 300 mg, 1 Cap, ORAL, TID lisinopril, 40 mg, ORAL, DAILY mupirocin topical 2% ointment, 1 Applic, TOP, TID solifenacin 5 mg oral tablet, 5 mg, 1 Tab, ORAL, QBedtime Lab Results Labs All 24H Lab Results D ate CRP C-Reactive Protein 1.40 mg/dL (HIGH) 12/25/24 20:44 PDT Auto NRBC % 0 % 12/25/24 20:44 PDT Lactic Acid WB 0.83 mmol/L 12/25/24 20:44 PDT Auto Neutrophil Percent 79.3 % (HIGH) 12/25/24 20:44 PDT Auto Neutrophil Absolute 13.1 K/uL (HIGH) 12/25/24 20:44 PDT Auto Lymphocyte Percent 10.6 % (LOW) 12/25/24 20:44 PDT Auto Lymphocyte Absolute 1.7 K/uL 12/25/24 20:44 PDT Auto Monocyte Percent 4.6 % (LOW) 12/25/24 20:44 PDT Auto Monocyte Absolute 0.8 K/uL 12/25/24 20:44 PDT Auto Basophil Percent 0.8 % 12/25/24 20:44 PDT Auto Basophil Absolute 0.1 K/uL 12/25/24 20:44 PDT Auto Eosinophil Percent 4.7 % 12/25/24 20:44 PDT Auto Eosinophil Absolute 0.8 K/uL (HIGH) 12/25/24 20:44 PDT WBC 16.4 K/uL (HIGH) 12/25/24 20:44 PDT RBC 6.07 M/uL (HIGH) 12/25/24 20:44 PDT HGB 12.8 gm/dL 12/25/24 20:44 PDT HCT 40.7 % 12/25/24 20:44 PDT MCV 67.0 fL (LOW) 12/25/24 20:44 PDT MCH 21.1 pg (LOW) 12/25/24 20:44 PDT MCHC 31.5 gm/dL 12/25/24 20:44 PDT RDW 19.4 % (HIGH) 12/25/24 20:44 PDT PLT 815 K/uL (HIGH) 12/25/24 20:44 PDT MPV 8.40 fL 12/25/24 20:44 PDT Sedimentation Rate Auto 33 mm/hr (HIGH) 12/25/24 20:44 PDT Sodium Level 136 mmol/L 12/25/24 20:44 PDT Potassium Level 4.7 mmol/L 12/25/24 20:44 PDT Chloride Level 104 mmol/L 12/25/24 20:44 PDT CO2/Carbon Dioxide 27 mmol/L 12/25/24 20:44 PDT Anion Gap 5.0 - 12/25/24 20:44 PDT Glucose, Random 95 mg/dL 12/25/24 20:44 PDT BUN 27 mg/dL (HIGH) 12/25/24 20:44 PDT Creatinine 0.63 mg/dL 12/25/24 20:44 PDT BUN/Creat Ratio 42.9 (HIGH) 12/25/24 20:44 PDT Osmolality, Calculated 277 mOsm/L 12/25/24 20:44 PDT Calcium Level 9.0 mg/dL 12/25/24 20:44 PDT Total Protein 6.8 gm/dL 12/25/24 20:44 PDT Albumin Level 3.8 gm/dL 12/25/24 20:44 PDT Globulin Level 3.0 gm/dL 12/25/24 20:44 PDT A/G Ratio 1.3 12/25/24 20:44 PDT Bilirubin, Total 0.3 mg/dL 12/25/24 20:44 PDT AST 16 IntUnit/L 12/25/24 20:44 PDT ALT 9 IntUnit/L 12/25/24 20:44 PDT ALP 78 IntUnit/L 12/25/24 20:44 PDT eGFR 88 mL/min/1.73m2 12/25/24 20:44 PDT Diagnostics Results No Qualifying Data No Qualifying Data Electronically signed by: MD Brownlee Timothy J Signed on: 26-Dec-2024 00:14 PDT 12/26/[address] [facility] ED Physician Notes Patient: JEWEL CURRAN Age: 84 years Legal Sex: FEMALE : 1940 Chief Complaint BIB family c/o L-leg ulcer x a few weeks. Pt was seen here last week, instructed to return if no improvement. Reddness observed around wound, pt reports yellow discharge. Pt aox4, resp e/u, raúl w/d/i Mode of Arrival Walk-In History (History of Present Illness) Patient presents to the emergency department complaining of a wound to the left leg which she has had for the last 2 to 3 weeks. Patient was initially started on Keflex and doxycycline on 12/12 by an outside physician. She then followed up here on 12/20 and was prescribed Levaquin and mupirocin. She returns to the emergency department again today because the wound is not improving. She denies any fever, chills, nausea, vomiting or other systemic complaints. Additional History Obtained From: Son _ Documentation Reviewed: Prior ED notes _ Physical Exam Triage Vital Signs 12/25/24 20:25 T: 97.7 F HR: 65 RR: 20 BP: 150/75 SPO2: 98% O2 Delivery: Room air HT: 157.5 cm WT: 65.4 kg(Dose Calc Wt.) WT: 65.4 kg BMI: 29.79 kg/m2 Constitutional: no distress, well appearing, well developed Head: atraumatic, normocephalic, moist mucosal membranes Eyes: EOMI Cardiovascular: normal rate, regular rhythm, no murmur, no gallops, no cyanosis or pallor, no peripheral edema Respiratory: CTA, no rales, no rhonchi, no wheezing, non-labored respirations, normal air movement in lung hodges Gastrointestinal: soft, non-distended, no tenderness to palpation, no guarding, no rebound Neurological: oriented x4, awake, CN II-XII intact Skin: Cellulitis to left lower leg with surrounding erythema, tender to palpation Psychiatric: normal affect, good judgment ED Course, Data, and Interventions Orders Zosyn, 3.375 gm, 50 mL, IV, ONCE vancomycin, 1.5 gm, 300 mL, IV, ONCE Order Profile Completed Dextrose 5% in Water 50 mL, IV SOLN, zOmnicell, zOmnicell, 12/26/24 3:49:44 PDT, Physician Stop, Stop date 12/26/24 3:49:44 PDT piperacillin-tazobactam 3.375 gm, VIAL, zOmnicell, zOmnicell, 12/26/24 3:49:38 PDT, Physician Stop, Stop date 12/26/24 3:49:38 PDT Completed (Completed) 29177 CBC Auto w Auto Diff ONCE, Stat, Collected Lab Collect, 12/25/24 20:44:00 PDT, Blood, Stop Dt/Tm 12/25/24 20:44:00 PDT Admission Status Order Notification 12/25/24 23:34:00 PDT, Observation Level Of Care: Med/Surg CBC w Differential 12/25/24 20:23:00 PDT, ONCE, Parker Priority: Stat Rpt Priority: Stat, Not Collected Lab Collect, Blood, Stop Dt/Tm 12/25/24 20:24:00 PDT CRP CReactive Protein 12/25/24 20:23:00 PDT, ONCE, Parker Priority: Stat Rpt Priority: Stat, Not Collected Lab Collect, Blood, Stop Dt/Tm 12/25/24 20:24:00 PDT Comprehensive Metabolic Panel CMP 12/25/24 20:23:00 PDT, ONCE, Parker Priority: Stat Rpt Priority: Stat, Not Collected Lab Collect, Blood, Stop Dt/Tm 12/25/24 20:24:00 PDT Differential Automated* 12/25/24 20:44:00 PDT, ONCE, Parker Priority: Stat Rpt Priority: Stat, Collected Lab Collect, Blood, Stop Dt/Tm 12/25/24 20:44:00 PDT ED Assessment Adult 12/25/24 20:31:59 PDT ED Physician Decision to Admit 12/25/24 21:30:00 PDT ED Skin Risk Assessment 12/25/24 20:31:59 PDT, Stop Dt/Tm 12/25/24 20:31:59 PDT Lactic Acid/Lactate Whole Blood 12/25/24 20:24:08 PDT, ONCE, Parker Priority: ST Rpt Priority: Stat, Not Collected Lab Collect, Blood, Stop Dt/Tm 12/25/24 20:24:00 PDT Respiratory Therapy Medication Communication 12/25/24 23:35:28 PDT, ONCE, Stop Dt/Tm 12/25/24 23:35:28 PDT Respiratory Therapy Medication Communication 12/25/24 23:35:29 PDT, ONCE, Stop Dt/Tm 12/25/24 23:35:29 PDT Respiratory Therapy Medication Communication 12/25/24 23:45:14 PDT, ONCE, Stop Dt/Tm 12/25/24 23:45:14 PDT Sed Rate (ESR) AUTO 12/25/24 20:23:00 PDT, ONCE, Parker Priority: Stat Rpt Priority: Stat, Not Collected Lab Collect, Blood, Stop Dt/Tm 12/25/24 20:24:00 PDT Serum Indices 12/25/24 20:44:00 PDT, ONCE, Parker Priority: Stat Rpt Priority: Stat, Collected Lab Collect, Blood, Stop Dt/Tm 12/25/24 20:44:00 PDT Tibia/Fibula Lt 2 Vw 12/25/24 23:41:00 PDT, CATHLEEN, Transport Mode: Wheelchair, Reason: Cellulitis, Patient has IV, Patient not on O2, Standard, OK Verify ePrescribe Patient Pharmacy 12/25/24 20:23:51 PDT, Use the 'Patient Pharmacy' button in the toolbar to review/update the patient's pharmacy for ePrescribe. piperacillin-tazobactam 3.375 gm = 50 mL, IV, ONCE, Indication= Skin/Soft tissue infxn, purulent, STAT, IV SOLN, 12/25/24 21:16:00 PDT, Stop date 12/25/24 21:16:00 PDT, 100 mL/hr, 0.5 hr vancomycin 1.5 gm = 300 mL, IV, ONCE, Indication= Skin/Soft tissue infxn, purulent, STAT, INJ, 12/25/24 21:16:00 PDT, Stop date 12/25/24 21:16:00 PDT, 150 mL/hr, 120 min Ordered Labs A1C Hemoglobin NOT HPLC - (12/25/2024 23:34 PDT) B Type Natriuretic Peptide BNP - (12/25/2024 23:34 PDT) Basic Metabolic Panel BMP - (12/25/2024 23:34 PDT) CBC w Differential - (12/25/2024 23:34 PDT) Comprehensive Metabolic Panel CMP - (12/25/2024 23:34 PDT) Culture Aerobic - (12/25/2024 23:27 PDT) Culture MRSA Screen - (12/26/2024 03:39 PDT) Culture MRSA Screen - (12/26/2024 06:23 PDT) Ferritin Level - (12/25/2024 23:34 PDT) Folate Level - (12/25/2024 23:34 PDT) Iron Level - (12/25/2024 23:34 PDT) Lipid Panel - (12/25/2024 23:34 PDT) Magnesium Level - (12/25/2024 23:34 PDT) Phosphorus Level - (12/25/2024 23:34 PDT) Prothrombin Time PT w INR - (12/25/2024 23:34 PDT) Reticulocyte Count - (12/25/2024 23:34 PDT) TSH Thyroid Stim Horm 3rd Generation - (12/25/2024 23:34 PDT) Transferrin Level - (12/25/2024 23:34 PDT) Vancomycin Level Random - (12/26/2024 03:15 PDT) Vitamin B12 Level - (12/25/2024 23:34 PDT) Diagnostics. Imaging results below were _ by me. Left tibia/fibula x-rays, interpreted by myself: Soft tissue edema, no air in soft tissue, no fractures EKG. EKG results below were independently viewed and interpreted by me. No Qualifying Data Re-evaluation 12/25/24 20:25 T: 97.7 F HR: 65 RR: 20 BP: 150/75 SPO2: 98% O2 Delivery: Room air 12/25/24 22:00 T: 97.5 F HR: 65(Monitored) RR: 22 BP: 135/60 SPO2: 99% O2 Delivery: Room air 12/25/24 22:00 BP: 135/60 12/26/24 00:00 T: 97.3 F BP: 155/70 SPO2: 98% O2 Delivery: Room air 12/26/24 00:00 HR: 69(Monitored) RR: 20 BP: 155/70 12/26/24 00:00 BP: 155/70 12/26/24 00:31 BP: 126/62 Medical Decision Making Due to significant limitations of this charting software, this chart may not give a complete representation of the patient's ED visit. I have considered all of the elements of the relevant differential diagnosis. A partial list of my primary concerns includes: cellulitis, abscess, necrotizing fasciitis, MRSA infection, venous stasis ulcer, vascular insufficiency, septicemia. Labs interpreted by myself: The CBC demonstrates a leukocytosis with a WBC of 16.4 accompanied by a neutrophil predominance at 79.3%. Hemoglobin is normal at 12.8 and platelets are significantly elevated at 815. Electrolytes (sodium 136, potassium 4.7, chloride 104, CO2 27) are unremarkable. Renal function is normal based on an eGFR of 88. Liver function tests are within normal limits (bilirubin 0.3, AST 16, ALT 9, ALP 78). Inflammatory markers are elevated with a CRP of 1.40 and an ESR of 33. ED Course: The patient, an 84-year-old female with a persistent left leg ulcer and associated cellulitis, has not improved despite multiple courses of outpatient antibiotics. Given the clinical findings—including leukocytosis and elevated inflammatory markers s he was treated with IV Zosyn and vancomycin. I consulted LORAINE Echevarria and will admit to Dr. Brownlee for IV antibiotics for failed outpatient treatment. Chronic Medical Conditions Impacting Care: Advanced age with potential cardiovascular risk (evidenced by low-dose aspirin use). No other chronic medical conditions impacting current ED management are documented. Consideration of Hospitalization/Escalation or De-escalation of Care: Admission to [facility] was deemed appropriate given the failure of outpatient antibiotic therapy and persistent infection. No additional advanced imaging or escalation of care was indicated at this time. Management Discussions with other Healthcare Providers: Dr. Wale Brownlee h ospitalist _ Diagnosis Left lower extremity cellulitis Condition _Guarded Disposition _Admit to [facility] Prescriptions Current medications were reviewed and updated. MSEI Information MSEI MD/[employer]/PA Time Patient Seen face to face: Date and time 12/25/2024 20:32:24 Past Medical History Active Problems No active problems Social History *Alcohol Screen How often do you have a drink containing alcohol? Never (0). How many standard drinks containing alcohol do you have on a typical day? Never (0). How often do you have six or more drinks on one occasion? Never (0). Ready to change: N/A. 01/19/2024 *Substance Abuse Screen Do you have concerns about substance abuse for yourself or in your household? No. 01/19/2024 *Tobacco Use Screen Is there a smoker in the household? No. Do you have concerns about tobacco use in household? No. Over the past 30 days, what and how much have you smoked? Never (less than 100 in lifetime). Over the past 30 days, what has been your smokeless tobacco use? Never. Are you ready to quit? No. 01/19/2024 Allergies Contrast Dye (Itching) Tape (Rash) statins sulfa drugs Home Medications aspirin, 81 mg, ORAL, DAILY clindamycin 300 mg oral capsule, 300 mg, 1 Cap, ORAL, TID levoFLOXacin 750 mg oral tablet, 750 mg, 1 Tab, ORAL, Q24H mupirocin topical 2% ointment, 1 Applic, TOP, TID Lab Results Last 3 Lab Results Lab WBC H 16.4 (12/25/24 20:44 PDT) RBC H 6.07 (12/25/24 20:44 PDT) HGB 12.8 (12/25/24 20:44 PDT) HCT 40.7 (12/25/24 20:44 PDT) MCV L 67.0 (12/25/24 20:44 PDT) MCH L 21.1 (12/25/24 20:44 PDT) MCHC 31.5 (12/25/24 20:44 PDT) RDW H 19.4 (12/25/24 20:44 PDT) PLT H 815 (12/25/24 20:44 PDT) MPV 8.40 (12/25/24 20:44 PDT) Sodium Level 136 (12/25/24 20:44 PDT) Potassium Level 4.7 (12/25/24 20:44 PDT) Chloride Level 104 (12/25/24 20:44 PDT) CO2/Carbon Dioxide 27 (12/25/24 20:44 PDT) Anion Gap 5.0 (12/25/24 20:44 PDT) Glucose, Random 95 (12/25/24 20:44 PDT) BUN H 27 (12/25/24 20:44 PDT) Creatinine 0.63 (12/25/24 20:44 PDT) BUN/Creat Ratio H 42.9 (12/25/24 20:44 PDT) Osmolality, Calculated 277 (12/25/24 20:44 PDT) Calcium Level 9.0 (12/25/24 20:44 PDT) Total Protein 6.8 (12/25/24 20:44 PDT) Albumin Level 3.8 (12/25/24 20:44 PDT) Globulin Level 3.0 (12/25/24 20:44 PDT) A/G Ratio 1.3 (12/25/24 20:44 PDT) Bilirubin, Total 0.3 (12/25/24 20:44 PDT) AST 16 (12/25/24 20:44 PDT) ALT 9 (12/25/24 20:44 PDT) ALP 78 (12/25/24 20:44 PDT) CRP C-Reactive Protein H 1.40 (12/25/24 20:44 PDT) Auto Neutrophil Percent H 79.3 (12/25/24 20:44 PDT) Auto Neutrophil Absolute H 13.1 (12/25/24 20:44 PDT) Auto Lymphocyte Percent L 10.6 (12/25/24 20:44 PDT) Auto Lymphocyte Absolute 1.7 (12/25/24 20:44 PDT) Auto Monocyte Percent L 4.6 (12/25/24 20:44 PDT) Auto Monocyte Absolute 0.8 (12/25/24 20:44 PDT) Auto Basophil Percent 0.8 (12/25/24 20:44 PDT) Auto Basophil Absolute 0.1 (12/25/24 20:44 PDT) Auto Eosinophil Percent 4.7 (12/25/24 20:44 PDT) Auto Eosinophil Absolute H 0.8 (12/25/24 20:44 PDT) Auto NRBC % 0 (12/25/24 20:44 PDT) Lactic Acid WB 0.83 (12/25/24 20:44 PDT) Sedimentation Rate Auto H 33 (12/25/24 20:44 PDT) eGFR 88 (12/25/24 20:44 PDT) [id number] Female 12/26/2024 [facility] ED Physician Notes Patient: JEWEL CURRAN Age: 84 years Legal Sex: FEMALE : 1940 _ Pt. called and reported difficulty tolerating Levaquin 750 mg. Patient states she discussed potential other antibiotic options with previous provider. Due to patient with cellulitis despite completing Keflex and doxycycline and due to allergy to sulfa we will try clindamycin 300 mg 3 times daily. Strict return precautions discussed. Discussed potential need for review specialist. Patient will continue with at home wound care and cleaning with topical mupirocin as well. Prescribed Medications 12/21/2024 15:39 PDT clindamycin 300 mg oral capsule, = 1 Cap, ORAL, TID, X 7 Day(s), # 21 Cap, Indication= Skin/Soft tissue infxn, nonpurulent, 0 Refill(s), Acute, Pharmacy: [id number], 157.5, cm, 01/19/24 1:08:00 PDT, Height/Length (cm), 56.8, kg, 12/20/24 11:24:00 PDT, Dose calculation weight... [id number] Female 12/21/2024 [facility] ED Physician Notes Patient: JEWEL CURRAN Age: 84 years Legal Sex: FEMALE : 1940 Chief Complaint BIB self c/o wound on L leg. pt states: 'I had an I&D 2 weeks ago on my leg and I need the dressing chenged' supposed to change dressing 4 days ago. A&Ox4. History of multiple strokes, 0 deficits. Finished course of antibiotics yesterday. Mode of Arrival Walk-In History (History of Present Illness) Patient presents the emergency department with for wound to the left lower extremity. She is visiting from out of town and she had a small blister like wound to the left calf area 2 weeks ago. She states that it continued to grow and get larger and she was seen at outside facility and had incision and drainage completed however no packing was placed. She was supposed to have the dressing changed 4 days ago however has not. She has not been washing the wound or applying any cream. She has been taking Keflex and 'another antibiotic' which she is unsure of for the last 2 weeks and states that the redness and swelling are getting worse. She denies any fever, numbness/tingling, abnormal movement of extremity, other symptoms at this time. Additional History Obtained From: Family Documentation Reviewed: Clinic Notes Physical Exam Triage Vital Signs 12/20/24 11:24 T: 98.2 F HR: 80 RR: 20 BP: 143/70 SPO2: 98% O2 Delivery: Room air HT: 157.5 cm WT: 56.8 kg(Dose Calc Wt.) WT: 56.8 kg BMI: 29.79 kg/m2 Constitutional: Well developed well nourished in no apparent distress. HEENT: Normocephalic with no external evidence of trauma. Oral pharynx clear. Neck: Full range of motion. No meningismus. No lymphadenopathy. Chest: Clear to auscultation bilaterally with no respiratory distress. Patient is speaking in full sentences. Negative tripod position. Negative accessory muscle use. Negative increase in respiratory effort. Cardiovascular: Regular Rate and Rhythm with no murmurs rubs or gallops. Skin: no petechia or purpuric lesions. She has a 4 x 4 centimeter circular wound to the medial aspect of the left calf. There is granulation tissue present, no abscess or purulence, I am unable to express any material from the wound. There is surrounding erythema, edema, induration, mild tenderness to palpation. She has no swelling or edema to the extremity beyond the borders of the wound. Musculoskeletal: no cyanosis, clubbing, or edema. Full range of motion of all major joints Neurologic exam: awake and alert, moves all four extremities. Intact sensation L4, 5, and S1 dermatomes bilaterally. Psychological: Good judgment, good insight. ED Course, Data, and Interventions Orders bacitracin topical, 1 Applic, TOP, ONCE Medical Decision Making Patient presents the emergency department with for wound to the left lower extremity. She is visiting from out of town and she had a small blister like wound to the left calf area 2 weeks ago. She states that it continued to grow and get larger and she was seen at outside facility and had incision and drainage completed however no packing was placed. She was supposed to have the dressing changed 4 days ago however has not. She has not been washing the wound or applying any cream. She has been taking Keflex and 'another antibiotic' which she is unsure of for the last 2 weeks and states that the redness and swelling are getting worse. She denies any fever, numbness/tingling, abnormal movement of extremity, other symptoms at this time. On physical exam she has a 4 x 4 centimeter circular wound to the medial aspect of the left calf. There is granulation tissue present, no abscess or purulence, I am unable to express any material from the wound. There is surrounding erythema, edema, induration, mild tenderness to palpation. She has no swelling or edema to the extremity beyond the borders of the wound. I doubt any serious bacterial infection given nontoxic appearance, afebrile, no tachycardia, no tachypnea. I believe that the wound is healing appropriately however she does require additional antibiotics given the surrounding erythema and induration although this is mild. Patient will be discharged with prescription for levofloxacin and mupirocin ointment. Patient requested antibiotic which was only to be taken once a day, and given allergies to sulfa, no improvement of redness per patient with Keflex, levofloxacin was prescribed. Wound care was completed by myself as a wound was cleansed, bacitracin applied, nonstick dressing applied. Wound care discussed in detail with the patient and she was advised to wash the wound daily with gentle soap and water, pat dry, apply antibacterial cream, and nonstick bandage. She was advised to follow-up with primary care provider in 2 days for further evaluation and treatment or return to the emergency department so we may reevaluate the wound. She was advised to return to the emergency department immediately for any new or worsening symptoms. Patient agrees and is comfortable this plan. I do not believe she requires any laboratory workup or imaging in the emergency department at this time given physical exam findings clinical picture. _ Labs, Imaging and Medications Considered but not performed/prescribed: I do not believe she requires any laboratory workup or imaging in the emergency department at this time given physical exam findings clinical picture. Diagnosis Left leg wound cellulitis Wound check Condition Stable Disposition Discharge to Home Prescriptions Current medications were reviewed and updated. Prescribed Medications 12/20/2024 12:07 PDT levoFLOXacin 750 mg oral tablet, = 1 Tab, ORAL, Q24H, X 7 Day(s), # 7 Tab, Indication= Skin/Soft tissue infxn, nonpurulent, 0 Refill(s), Acute, [id number], 157.5, cm, 01/19/24 1:08:00 PDT, Height/Length (cm), 56.8, kg, 12/20/24 11:24:00 PDT, Dose calculation weight... 12/20/2024 12:06 PDT mupirocin topical 2% ointment, 1 Applic, TOP, TID, # 22 gm, 0 Refill(s), Maintenance, Pharmacy: [facility] #[id number], 157.5, cm, 01/19/24 1:08:00 PDT, Height/Length (cm), 56.8, kg, 12/20/24 11:24:00 PDT, Dose calculation weight (kg) Patient Education Wound Care, Adult How to Change Your Wound Dressing Follow-Up Provider: Follow up with primary care provider Date: Within 1-2 days Comment: Please follow-up with your primary care provider in 1-2 days for further evaluation and treatment, return to the emergency room immediately for any worrying or worsening of symptoms. Please refer to the aftercare instructions for important information regarding continued care after your emergency room visit. Please do not remove the bandage for 24 hours. After 24 hours you may remove the bandage and please gently wash the wound with unscented soap and water daily. Please pat dry after washing the wound. Apply small amount of antibacterial ointment or petroleum based product to the wound and cover with nonstick bandage. Repeat this process every day until wound is healed or you are told otherwise by other provider after follow-up. For any fever, worsening pain, redness, swelling, skin that is hot to touch, go to the closest emergency department for reevaluation. MSEI Information DAVI MD/CANVAS GOODS MAKER/PA Time Patient Seen face to face: Date and time 12/20/2024 11:33:40 Past Medical History Active Problems No active problems Social History *Alcohol Screen How often do you have a drink containing alcohol? Never (0). How many standard drinks containing alcohol do you have on a typical day? Never (0). How often do you have six or more drinks on one occasion? Never (0). Ready to change: N/A. 01/19/2024 *Substance Abuse Screen Do you have concerns about substance abuse for yourself or in your household? No. 01/19/2024 *Tobacco Use Screen Is there a smoker in the household? No. Do you have concerns about tobacco use in household? No. Over the past 30 days, what and how much have you smoked? Never (less than 100 in lifetime). Over the past 30 days, what has been your smokeless tobacco use? Never. Are you ready to quit? No. 01/19/2024 Allergies Contrast Dye (Itching) Tape (Rash) statins sulfa drugs Home Medications aspirin, 81 mg, ORAL, DAILY levoFLOXacin 750 mg oral tablet, 750 mg, 1 Tab, ORAL, Q24H mupirocin topical 2% ointment, 1 Applic, TOP, TID I approve of the management plan and accept responsibility for the patient's treatment. [id number] Female 12/20/2024 [facility] Neurology Consult note Patient: VIJAY CURRAN ? Age: 83 years Legal Sex: FEMALE : 1940 Chief Complaint BIB family c/o difficulty speaking at 1999, was unable to complete a sentence. AOx3, unsure of year, Resp E/U, pt asking repetitive questions. 10/10 shoulder pain since last night. Baseline AOx4. Reason for Consultation TIA/Stroke History of Present Illness Patient is an 83-year-old female visiting from [place] with a past medical history of TIAs [...] patient. Not a TNK candidate. Telemetry neuro d id not feel it was an acute stroke.? [...] SpO2: 97% O2 Delivery: Room air HT: 1 57.5 cm W T: 7 3.9 kg(Dose Calc Wt.) W T: 7 3.9 kg B [place]: 2 9.79 kg/m2 MENTAL STATUS EXAM: Awake and oriented to person, time, place and situation. Speech is fluent. Following simple one step commands. CRANIAL NERVES: 2-12 grossly intact. Pupils are round and reactive to light. Extraocular movements are intact. No ptosis. No nystagmus. Facial sensation is intact to light touch bilaterally. No evidence of facial droop. H earing is intact bilaterally. Soft palate elevation is symmetric. Tongue is midline. MOTOR: M oves all extremities spontaneously and equally. N o pronator drift. REFLEXES: Symmetric SENSATION: Intact to [...] - Antibiotics per primary for UTI - A spirin 81mg daily - P t is a llergic to s tatins - MRI Brain no contrast pending - TTE pending - Neurochecks Q4H - Check Hgb A1C, - lipid panel (LDL 87) - Permissive hypertension x24 hours, may use labetalol 10mg PRN BP >220/110. - H OB 30 degrees for aspiration risk - SCDs - ST/OT/PT - Neuro to follow - Patient care discussed w Dr. Arellano who agrees w this assessment and plan Patient Education High Cholesterol Allergies Contrast Dye ( Itching) Tape ( Rash) statins sulfa drugs Problem List Active Problems [...] Q1HR, PRN Rocephin, 1 gm, IV PUSH, [id number] Sodium Chloride 0.9% IV Tubing Flush (ONE) [...] Lab Results Labs All 24H Lab Results D ate MDW 19.1 units 01/18/24 20:40 PDT Glycated [...] 0.64 mmol/L 01/18/24 22:14 PDT POCT - I NR 1.3 01/18/24 20:31 PDT Auto Neutrophil Percent [...] Clear 01/18/24 21:10 PDT UA - Specific [place] 1.030 (ABNORMAL) 01/18/24 21:10 PDT UA - [...] 11 ng/L 01/18/24 20:40 PDT Social History A buse/Intent to Harm Abuse screen, adult/elderly/domestic: No signs [...] Signed on: 19-Jan-2024 12:28 PDT 01/19/[address] [facility] Neurology Consultation Patient: VIJAY CURRAN [...] is an 83-year-old female visiting from [place] with a past medical history of TIAs [...] Q1HR, PRN Rocephin, 1 gm, IV PUSH, [id number] Sodium Chloride 0.9% IV Tubing Flush (ONE) [...] Clear 01/18/24 21:10 PDT UA - Specific [place] 1.030 (ABNORMAL) 01/18/24 21:10 PDT UA - [...] to quit? No. Pts case reviewed with MILTON-Dede. Acute Confusional State. Resolved. Hypertensive Encephalopathy vs. Metabolic Encephalopathy 2 UTI. MRI Brain neg. Reviewed with Dr. Garcia. Clear to [place] home from [facility]. Thank u for the kind consult. [id number] Female 01/19/2024 [facility] Progress note Patient: VIJAY CURRAN ? Age: 83 years Legal Sex: FEMALE : 1940 Subjective Patient relates feeling well and back to baseline. N o recurrence of confusion reported overnight. N o acute events ported by RN overnight. P atient denies any new symptoms and wants to go home 12 point review of system obtained negative other than what is mentioned above Objective Vitals and Measurements T: 97.8 F HR: 77(Monitored) HR: 84 RR: 18 BP: 137/72 SpO2: 97% O2 Delivery: Room air HT: 1 57.5 cm W T: 7 3.9 kg(Dose Calc Wt.) W T: 7 3.9 kg B NY: 2 9.79 kg/m2 Intake and Output a s of 11:18 (24 hour periods starting at 06:00) 01/19/24 01/18/24 01/17/24 Intake mL 1 1000 0 Output mL 0 0 0 Fluid Balance 1 1000 0 Physical Exam General Appearance: No acute distress. A NO x 3 HEENT: Normocephalic. Atraumatic, Cardiac: Normal [...] Medications Scheduled: aspirin 81 mg Chew Tab 8 1 mg 1 Tab, CHEW, DAILY HEParin 5,000 units/mL Inj 5 ,000 units 1 mL, SUBQ, Q8H Pharmacy Consult A llergy Review, N/A, As directed Pharmacy Consult A llergy Review, N/A, As directed Pharmacy Consult A llergy Review, N/A, As directed sodium chloride 0.9%, 10 mL Flush 1 0 mL, IV FLUSH, Q12H Continuous: sodium chloride 0.9% 250 mL 2 50 mL, IV, 100 mL/hr sodium chloride 0.9% 250 mL 2 50 mL, IV, 100 mL/hr PRN: acetaminophen 500 mg Tab 5 00 mg 1 ea, ORAL, QBedtime Dextrose 50% Inj 50 mL Syr 2 5 mL, IV PUSH, As directed Dextrose 50% Inj 50 mL Syr 5 0 mL, IV PUSH, As directed diphenhydrAMINE 25 mg Cap 2 5 mg 1 Cap, ORAL, QBedtime glucagon 1 mg Inj SDV 1 mg, SUBQ, As directed labetalol 5 mg/mL, 4 mL Inj 1 0 mg 2 mL, IV PUSH, Q1HR sodium chloride 0.9%, 10 mL Flush 1 0 mL, IV FLUSH, As directed Lab Results Labs All 24H Lab Results D ate MDW 19.1 units 01/18/24 20:40 PDT HDL [...] 0.64 mmol/L 01/18/24 22:14 PDT POCT - I NR 1.3 01/18/24 20:31 PDT Auto Neutrophil Percent [...] Clear 01/18/24 21:10 PDT UA - Specific [place] 1.030 (ABNORMAL) 01/18/24 21:10 PDT UA - [...] 20:40 PDT Assessment/Plan #Acute metabolic encephalopathy # P rior history of TIA. Rule out C VA. Continue daily monitoring. S o far no acute events ported on telemetry CTA head and neck shows no LVO CT brain shows no bleed MRI brain scheduled for today Continuing patient's home baby aspirin Not able to start high intensity statin as patient has an allergy to statins Echocardiogram ordered LDL 87 PT/OT Neurochecks a nd stroke protocol Permissive hypertension for now w ith labetalol Neurology consulted # U rinary tract infection -Start empiric Rocephin. F ollow culture results # L eukocytosis possibly secondary to UTI. I mproved. C heck PCT level. S tart empiric antibiotics # C hronic joint pains from osteoarthritis -patient takes Tylenol at home a s needed for joint pains. O rosenda to resume Tylenol # H istory of TIA Resumed aspirin DVT ppx: Heparin GI ppx: Protonix Disposition -possible discharge home pending MRI brain, echo, P T eval, neuroconsult. D iscussed with patient Supportive Care The time reflected for this documentation does not necessarily reflect the true time of interaction with the patient I further certify that the patient/family/friends were encouraged to ask questions and that all questions were answered. Prognosis: GUARDED and will depend to patient s response to treatment Further treatment and evaluation will be based on hospital course and response to that treatment. Pending further evaluation, treatment, and consult recommendations, we anticipate this patient being discharged to previous living situation or appropriate care facility. Portions of this document may have been created using [employer] Dictation Software and may contain mistakes. Electronically signed by: MD Jose, [id number] Signed on: 19-Jan-2024 11:33 PDT 01/19/[address] [facility] Progress Note Patient: JEWEL CURRAN Age: 83 [...] Clear 01/18/24 21:10 PDT UA - Specific [place] 1.030 (ABNORMAL) 01/18/24 21:10 PDT UA - [...] this document may have been created using [employer] and may contain mistakes. [id number] Female 01/19/2024 [facility] Neurology Consultation Patient: VIJAY CURRAN Age: 83 years Legal Sex: FEMALE : 1940 _ Acute TeleNeurology Phone Consult Note Site: [facility] Patient Name: VIJAY CURRAN Patient : 1940 Consult Date: 01/18/2024 21:07:48 Time Paged: 2027 Time Called Back: 2027 [note paged to non-working line multiple times, but then was connected by AIR PLANT ENGINEER] Phone only consult requested/approved by consulting physician. History per EMR and/or referring physician report. Reason for Consult: AMS Summary: 83 Years old Female per ER note: 'Patient is 83 years old, currently visiting the area from [place], with a history of TIAs, on baby [...] otherwise: - need additional history - basic lalwe-rjzolcpaq-[id number] workup as appropriate per ER/primary team - [...] minutes Signed: Mandeep Sebastian MD [facility] [id number] Female 01/19/2024 [facility] ED Physician Notes Patient: JEWEL [...] old, currently visiting the area from [place], with a history of TIAs, on baby [...] mL, IVPB, ONCE Order Profile Completed (Completed) 18821 CBC Auto w Auto Diff ONCE, Stat, Collected Lab Collect, 01/18/24 20:40:00 PDT, Blood, Stop Dt/Tm 01/18/24 20:40:00 PDT CBC w Differential 01/18/24 20:28:00 PDT, ONCE, Parekr Priority: Stat Rpt Priority: Stat, Not Collected [...] 01/18/24 20:32:30 PDT, RT, Routine, 01/18/24 20:32:30 /[facility] P[facility] PT/INR Panel Blood, Collected Y/N, 01/18/24 20:31:14 PDT, RT, Routine, 01/18/24 20:31:14 /[facility] Partial Thromboplastin Time PTT 01/18/24 20:28:00 PDT, [...] to chronic small vessel ischemic disease. The tsaley-white differentiation is maintained. The basal ganglia and [...] more distal vessel in accordance with [place] Symptomatic Carotid Endarterectomy Trial (NASCET). If you [...] were reviewed and updated. MSEI Information MSEI MD/[employer] MAKER/PA Time Patient Seen face to face: [...] 20:40 PDT) MDW 19.1 (01/18/24 20:40 PDT) [id number] Female 01/19/2024 [facility] Discharge Summaries Results Value Date Source Discharge Summary Patient: JEWEL CURRAN Age: 84 years Legal Sex: FEMALE : 1940 Admission Information Admit Date: 12/25/24 20:18 Reason for Admission: BREAST CANCER IN FEMALE, TIA, HISTORY OF ASTMA, NECROTIZING CELLULITIS, HTN Physicians Involved With Care Admitting: MD Alcantar Yuvraj S Attending: MD Alcantar Yuvraj S Consulting: Dean Hall MD, Thomas Tadeo Consulting: MD Echevarria Malini Consulting: MD Liu Lauren Alexandra Consulting: MD Mccauley Oscar J Consulting: MD Mccauley Oscar J Primary Care: MD DOMINIQUE Primary Care: DOCTOR, NOT ON FILE Final Diagnosis 84-year-old female with the onset about 2 to 3 weeks ago a blister on her left medial mid calf. This was popped but continued to worsen. Was seen in urgent care there was sent her to her primary care who sent her to a surgeon who did an in office I&D cauterized and started antibiotics. It continued to worsen, was seen in the ER, started on Levaquin and patient returns with worsening pain and erythema extending from her upper medial calf to her ankle. Patient has persistent burning and sharp pain. Patient denies any recent travel camping insect bites or any other skin lesions on her body. Patient has no thigh lymphangitis tenderness or inguinal adenopathy or pain. Denies fever chills sweats nausea vomiting diarrhea URI symptoms. Labs: WBC 16.4, ESR 33, CRP 1.4, lactic 0.83 Patient was seen at [facility] urgent care in [facility] telephone number [phone]. Son thinks that they may have done a wound culture thereLast week but has not heard of any results. 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 Discussed diagnostic/treatment plan as well as side effects and adverse effects with patient and her family, verbalize understanding and agreeing with plans/discussions. Provided education on alarm symptoms and advised patient to report back to nearest emergency department if any alarm symptoms arise, patient verbalizes understanding and agrees with plan. Hospital Course Procedures and Treatment Provided Procedures Performed This Encounter: Date and Time: 12/27/2024 15:55 Procedure Performed: EXTREMITY LOWER INCISION AND DRAINAGE DE, Left Performed by: MD Noe, Brianne Gloria Physical Exam Vitals and Measurements T: 97.5 F HR: 82(Monitored) HR: 70 RR: 18 BP: 121/54 SpO2: 99% O2 Delivery: Room air O2 Flow: 10L/min HT: 157.48 cm WT: 65.4 kg BMI: 26.37 kg/m2 General Appearance: NAD. HEENT: NCAT. Cardiovascular: NSR. Respiratory: CTAB. Gastrointestinal: Soft, non-distended, non-tender. Genitourinary: No suprapubic tenderness. No flank pain. Musculoskeletal: dressings dry and intact. Neurological: Alert and interactive with normal affect. Grossly intact motor and sensory examination. Discharge Plan Patient Discharge Condition stable Discharge Disposition/Location Discharge Date: 12/28/24 Discharge Location: Home with Home Health Care Discharge Details Follow-Up Plans: with PCP, Surgeon/Dr. Liu, Wound Care team, and Plastic Surgeon within 2 weeks from discharge Discharge Care Instructions: please complete antibiotic regimen as prescribed, please continue wound care per wound [facility] team, please follow up as instructed for ongoing wound care and monitoring for optimal wound healing Discharge Activity: Activity As Tolerated Discharge Diet: Regular Diet Medications Reconciliation Last Documented: 12/28/2024 New Prescription ascorbic acid (Vitamin C 500 mg oral tablet)1 Tabs Oral TWICE DAILY. Refills: 0. cephalexin (Keflex 500 mg oral capsule)1 Capsules Oral FOUR TIMES PER DAY for 7 Days. Refills: 0. collagenase topical (Santyl 250 units/g topical ointment)1 Application Top of the skin in one area DAILY. Refills: 0. doxycycline (doxycycline hyclate 100 mg oral capsule)1 Capsules Oral TWICE DAILY for 7 Days. Refills: 0. zinc sulfate (zinc sulfate 220 mg oral capsule)1 Capsules Oral DAILY. Refills: 0. Unchanged [id number] Milligram Oral EVERY MORNING. [id number] Milligram Oral DAILY. solifenacin (solifenacin 5 mg oral tablet)1 Tabs Oral AT BEDTIME. Discontinued clindamycin (clindamycin 300 mg oral capsule)1 Capsules Oral THREE TIMES A DAY. TAKE 1 CAPSULE BY MOUTH 3 TIMES A DAY FOR 7 DAYS. mupirocin topical (mupirocin topical 2% ointment)1 Application Top of the skin in one area THREE TIMES A DAY. Refills: 0. Time Spent Coordinating Discharge >35 mins spent on discharge [id number] Female 12/28/2024 [facility] Discharge Summary Patient: JEWEL CURRAN Age: 83 years Legal Sex: FEMALE : 1940 Admission Information Admit Date: 01/18/24 20:25 Reason for Admission: AMS (ALTERED MENTAL SATUS) Physicians Involved With Care Admitting: MD Garcia Qurat-Ul-Ain Attending: MD Garcia Qurat-Ul-Ain Consulting: HUGH Posadas Katherine A Consulting: MD Sebastian Suman A Consulting: DO Arellano Tung Henry Primary Care: UNABLE TO OBTAIN PROVIDER, Final Diagnosis #Acute metabolic encephalopathy Possibly secondary [...] 157.5 cm WT: 73.9 kg BMI: 29.79 kg/f7Iakmfto Appearance: No acute distress. ANO x 3 [...] to 2 weeks Address: Patient [facility]ed Neurology [address] [place] [id number]- [facility] (1) Provider: UNABLE TO OBTAIN PROVIDER Date: Within 1 to 2 weeks Time Spent Coordinating Discharge More than 30 minutes [id number] Female 01/20/2024 [facility] History and Physicals Results Value Date Source Hospitalist Admission H&P 12/26/[address] [facility] History and Physical Patient: DO ISAAC CURRAN Age: 84 years Legal Sex: FEMALE : 1940 Chief Complaint BIB family c/o L-leg ulcer x a few weeks. Pt was seen here last week, instructed to return if no improvement. Reddness observed around wound, pt reports yellow discharge. Pt aox4, resp e/u, raúl w/d/i Problem List Active Problems No qualifying data History of Present Illness 84-year-old female with the onset about 2 to 3 weeks ago a blister on her left medial mid calf. This was popped but continued to worsen. Was seen in urgent care there was sent her to her primary care who sent her to a surgeon who did an in office I&D cauterized and started antibiotics. It continued to worsen, was seen in the ER, started on Levaquin and patient returns with worsening pain and erythema extending from her upper medial calf to her ankle. Patient has persistent burning and sharp pain. Patient denies any recent travel camping insect bites or any other skin lesions on her body. Patient has no thigh lymphangitis tenderness or inguinal adenopathy or pain. Denies fever chills sweats nausea vomiting diarrhea URI symptoms. Labs: WBC 16.4, ESR 33, CRP 1.4, lactic 0.83 Patient was seen at [facility] urgent care in [facility] telephone number [phone]. Son thinks that they may have done a wound culture thereLast week but has not heard of any results. Past medical history: Questionable TIAs versus migraines versus benign positional vertigo versus other. Patient takes aspirin 81 mg daily Hypertension on lisinopril Childhood asthma now resolved AMS with UTI in 2022 Overactive bladder Microcytic anemia with elevated RBCs and platelets of 800,000 Past surgical history: Breast lumpectomy told of cancer but no further treatments MIREILLE TKR Allergies: Sulfa Contrast dye Statins Medications: Clindamycin 300 3 times daily Levaquin 500 daily Lisinopril 40 mg daily Solifenacin 5 mg at at bedtime Aspirin 81 mg daily Social history: Patient does not smoke drink or use drugs Family history: Mom had breast cancer Full CODE STATUS Review of Systems Constitutional: Negative except as noted in HPI. EENT: Negative except as noted in HPI. Respiratory: Negative except as noted in HPI. Cardiovascular: Negative except as noted in HPI. Lymphatic: Negative except as noted in HPI. Gastrointestinal: Negative except as noted in HPI. Genitourinary: Negative except as noted in HPI. LNMP: _ (if applicable) Musculoskeletal: Negative except as noted in HPI. Skin: Negative except as noted in HPI. Neurologic: Negative except as noted in HPI. Psychiatric: Negative except as noted in HPI. Physical Exam Vitals and Measurements T: 97.3 F HR: 69(Monitored) HR: 65 RR: 20 BP: 155/70 SpO2: 98% O2 Delivery: Room air HT: 157.5 cm WT: 65.4 kg(Dose Calc Wt.) WT: 65.4 kg BMI: 29.79 kg/m2 Shock Index: 0.481 12/26/24 00:00 General Appearance: No acute distress. HEENT: Normocephalic. PERRL. Normal tympanic membranes. No nasal discharge. Oral cavity and pharynx normal. Teeth and gingiva in good general condition. Neck supple, non-tender without lymphadenopathy, masses or thyromegaly. Cardiac: Normal rate and rhythm. There is no peripheral edema, cyanosis or pallor. Lungs: Clear to auscultation and percussion without rales, rhonchi, wheezing or diminished breath sounds. Abdomen: Positive bowel sounds. Soft, non-distended, non-tender. No guarding or rebound. No masses. Musculoskeletal: No joint deformity, erythema, or tenderness. Full ROM all joints. Normal gait. Neurological: Normal motor, sensory, and mental status examination. Reflexes 2+ throughout. Skin: Skin normal color, texture and turgor with no rash present. Necrotizing 1 and half by 2-1/2 inches lesion on left mid medial calf with smaller 1 inch lesion above it. Genitalia: Deferred. Psychiatric: Demonstrated good judgment and reason and normal affect during examination. 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 Seen in ER given antibiotics returns today worsened and is admitted for IV Zosyn and Vanco. They have done culture at [place] urgent care at [phone] culture done in the ER last night as well. Doubt leprosy as lesions are painful, but may have MRSA, less likely cancer or melanoma. Plan: Zosyn and Vanco, consult Dr. Lakesha Craig and and wound care nurse. Will try to get blood culture results from urgent care in the daytime. Questionable TIAs versus migraines versus benign positional vertigo versus other. Patient takes aspirin 81 mg daily Hypertension on lisinopril. Plan continue lisinopril Childhood asthma now resolved AMS with UTI in 2022 Overactive bladder on solifenacin Microcytic anemia with elevated RBCs and platelets of 800,000. Plan check iron ferritin B12 folic acid reticulocyte count LDH. Consider hematology consult Allergy to sulfa and contrast dye and statins Questionable history of breast cancer treated with lumpectomy alone a few months ago. Plan follow-up with PCP GI prophylaxis with Protonix DVT prophylaxis with heparin after surgical consult Full CODE STATUS Ordered: Admission Status Culture Aerobic Orders: acetaminophen (acetaminophen), 650 mg, ORAL, Q4H, PRN, Pain-Mild (Scale 1-3), TAB, 12/25/24 23:34:00 PDT acetaminophen (acetaminophen), 650 mg, ORAL, Q6H, PRN, Temperature, TAB, 12/25/24 23:34:00 PDT acetaminophen (acetaminophen), 650 mg, RECTAL, Q4H, PRN, Pain-Mild (Scale 1-3), SUPP, 12/25/24 23:34:00 PDT albuterol (albuterol), 2.5 mg, INH, Q2H, PRN, Shortness of breath, NEB AMP, 12/25/24:34:00 PDT cloNIDine (cloNIDine), 0.1 mg, ORAL, Q4H, PRN, Blood Pressure, TAB, 12/25/24:34:00 PDT Dextrose 10% in Water (D10W Bolus), = 250 mL, IV, As directed, PRN, hypoglycemia, IV SOLN, 12/25/24:34:00 PDT, 937.5 mL/hr, 16 min Dextrose 10% in Water (D10W Bolus), = 125 mL, IV, As directed, PRN, hypoglycemia, IV SOLN, 12/25/24 23:34:00 PDT, 937.5 mL/hr, 8 min diazePAM (Valium), 2.5 mg, IV, TID, PRN, Anxiety, INJ, 12/25/24 23:45:00 PDT docusate (docusate), 100 mg, ORAL, BID, PRN, Constipation, CAP, 12/25/24:34:00 PDT enalapril (enalapril), 1.25 mg, IV, Q6H, PRN, Blood Pressure, INJ, 12/25/24:34:00 PDT glucagon (glucagon), 1 mg, SUBQ, As directed, PRN, Blood Glucose, INJ, 12/25/24:34:00 PDT glucose (Dextrose 50% injection), = 25 mL, IV PUSH, As directed, PRN, hypoglycemia, INJ, 12/25/24:34:00 PDT glucose (Dextrose 50% injection), = 50 mL, IV PUSH, As directed, PRN, hypoglycemia, INJ, 12/25/24:34:00 PDT ipratropium (Atrovent), 0.5 mg, INH, Q2H, PRN, Shortness of breath, NEB AMP, 12/25/24 23:34:00 PDT iron sucrose (Venofer), 200 mg = 10 mL, IVPB, DAILY, PRN, Other (see comment), INJ, 12/25/24 23:34:00 PDT, 5 Time(s)/Dose(s), Stop date Limited # of times, 73.33 mL/hr, 1.5 hr ketorolac (ketorolac), 15 mg, IV PUSH, Q6H, PRN, Pain-Severe (Scale 7-10), INJ, 12/25/24 23:34:00 PDT, 5 Day(s), Stop date 12/30/24 23:33:00 PDT lisinopril (lisinopril), 40 mg, ORAL, DAILY, TAB, 12/25/24 23:25:00 PDT LORazepam (LORazepam), 0.5 mg, ORAL, TID, PRN, Anxiety, TAB, 12/25/24:34:00 PDT magnesium hydroxide (magnesium hydroxide), = 30 mL, ORAL, BID, PRN, Constipation, ORAL SUSP, 12/25/24:34:00 PDT magnesium oxide (magnesium oxide), 400 mg, ORAL, BID, PRN, Magnesium Replacement, TAB, 12/25/24 23:34:00 PDT magnesium sulfate (magnesium sulfate 2 g in SWFI 50 mL Premix), 2 gm = 50 mL, IVPB, [id number], PRN, Magnesium Replacement, IV SOLN, 12/25/24:34:00 PDT, 50 mL/hr, 60 min nalOXone (nalOXone), 0.1 mg, IV PUSH, As directed, Indication = Sedation reversal/rescue, PRN, Sedation, INJ, 12/25/24:34:00 PDT nitroglycerin (nitroglycerin), 0.4 mg, SUBLING, [id number], PRN, Chest Pain, TAB SUBLING, 12/25/24 23:34:00 PDT, 3 Time(s)/Dose(s), Stop date Limited # of times ondansetron (ondansetron), 4 mg, IV PUSH, Q4H, PRN, Nausea/Vomiting, INJ, 12/25/24 23:34:00 PDT pantoprazole (pantoprazole), 40 mg, ORAL, ACBkfst, EC TAB, 12/26/24 7:30:00 PDT piperacillin-tazobactam (Zosyn), 3.375 gm = 1 Vial, IVPB, [id number], Indication= Skin/Soft tissue infxn, necrotizing, VIAL, 12/26/24 3:00:00 PDT, 7 Day(s), Stop date 01/02/25 2:59:00 PDT, 25 mL/hr, 4 hr, Extended infusion, standard dose potassium bicarbonate-citric acid (potassium bicarbonate-citric acid), 20 mEq, ORAL, As directed, PRN, Potassium Replacement, EFFER TAB, 12/25/24 23:34:00 PDT potassium bicarbonate-citric acid (potassium bicarbonate-citric acid), 40 mEq, ORAL, As directed, PRN, Potassium Replacement, EFFER TAB, 12/25/24 23:34:00 PDT potassium chloride (potassium chloride 10 mEq/100 mL intravenous solution), 10 mEq = 100 mL, IVPB, As directed, PRN, Potassium Replacement, IV SOLN, 12/25/24 23:34:00 PDT, 100 mL/hr, 60 min potassium phosphate-sodium phosphate (K-Phos Neutral), = 2 Tab, ORAL, As directed, PRN, Phosphorus Replacement, TAB, 12/25/24 23:34:00 PDT potassium phosphate-sodium phosphate (K-Phos Neutral), = 1 Tab, ORAL, As directed, PRN, Phosphorus Replacement, TAB, 12/25/24 23:34:00 PDT sodium chloride 0.9% (Sodium Chloride 0.9% Saline Flush), = 10 mL, IV FLUSH, As directed, PRN, IV Access Flush, INJ, 12/25/24 23:34:00 PDT sodium chloride 0.9% (Sodium Chloride 0.9% Saline Flush), = 10 mL, IV FLUSH, Q12H, INJ, 12/25/24 23:34:00 PDT sodium chloride 0.9% 250 mL (Sodium Chloride 0.9% IV Tubing Flush (TWO) 250 mL), 250 mL, IV, 12/25/24 23:34:00 PDT, 100 mL/hr, 2.5 hr, Order Weight 65.4, kg, 1.69, m2 sodium chloride 0.9% 250 mL (Sodium Chloride 0.9% IV Tubing Flush (ONE) 250 mL), 250 mL, IV, 12/25/24 23:34:00 PDT, 100 mL/hr, 2.5 hr, Order Weight 65.4, kg, 1.69, m2 solifenacin (solifenacin), 5 mg, ORAL, QBedtime, TAB, 12/26/24 21:00:00 PDT temazepam (temazepam), 7.5 mg, ORAL, QBedtime, PRN, Insomnia, CAP, 12/25/24 23:34:00 PDT traMADol (traMADol), 50 mg, ORAL, Q4H, PRN, Pain-Moderate (Scale 4-6), TAB, 12/25/24 23:34:00 PDT vancomycin pharmacy to dose (vancomycin pharmacy to dose), Rx to Dose, N/A, As directed, Indication= Skin/Soft tissue infxn, necrotizing, IV SOLN, 12/25/24 23:39:00 PDT A1C Hemoglobin NOT HPLC B Type Natriuretic Peptide BNP Basic Metabolic Panel BMP Bedrest with BRP CBC w Differential Communication Communication Communication Comprehensive Metabolic Panel CMP Fall Risk Screen Ferritin Level Fingerstick/Capillary Blood Sugar Folate Level Full Code Hypoglycemia Protocol Intermittent Pneumatic Compression Device Iron Level Lipid Panel Magnesium Level Notify Physician Notify Physician Notify Physician Notify Physician Notify Physician Nursing Communication Electrolyte Replacement Nursing Communication Phosphate Replacement Phosphorus Level Physician Consult Precautions Prothrombin Time PT w INR Rapid Response Protocol Orders or Emergency Response per Protocol Reticulocyte Count Saline Lock Protocol (18 years and older) Sodium Restricted Diet Tibia/Fibula Lt 2 Vw Transferrin Level TSH Thyroid Stim Horm 3rd Generation Vitamin B12 Level Wound/Enterostomal Therapist Consult Allergies Contrast Dye (Itching) Tape (Rash) statins sulfa drugs Past Medical History No qualifying data available. Social History Abuse/Intent to Harm Abuse screen, adult/elderly/domestic: No signs of abuse Safety check complete: Yes CSSRS Risk Level: No risk (0-24) CSSRS Suicide screening: Screening already completed this visit CSSRS Suicide screening ED: Complete the suicide [...] Never. Are you ready to quit? No. Medications Inpatient acetaminophen, 650 mg, 1 Supp, RECTAL, Q4H, PRN acetaminophen, 650 mg, 2 ea, ORAL, Q4H, PRN acetaminophen, 650 mg, 2 ea, ORAL, Q6H, PRN albuterol, 2.5 mg, 3 mL, INH, Q2H, PRN Atrovent, 0.5 mg, 2.5 mL, INH, Q2H, PRN cloNIDine, 0.1 mg, 1 Tab, ORAL, Q4H, PRN D10W Bolus, 125 mL, IV, As directed, PRN D10W Bolus, 250 mL, IV, As directed, PRN Dextrose 50% injection, 25 mL, IV PUSH, As directed, PRN Dextrose 50% injection, 50 mL, IV PUSH, As directed, PRN docusate, 100 mg, 1 Cap, ORAL, BID, PRN enalapril, 1.25 mg, 1 mL, IV, Q6H, PRN glucagon, 1 mg, SUBQ, As directed, PRN K-Phos Neutral, 1 Tab, ORAL, As directed, PRN K-Phos Neutral, 2 Tab, ORAL, As directed, PRN ketorolac, 15 mg, 1 mL, IV PUSH, Q6H, PRN lisinopril, 40 mg, 2 Tab, ORAL, DAILY LORazepam, 0.5 mg, 1 Tab, ORAL, TID, PRN magnesium hydroxide, 30 mL, ORAL, BID, PRN magnesium oxide, 400 mg, 1 Tab, ORAL, BID, PRN magnesium sulfate 2 g in SWFI 50 mL Premix, 2 gm, 50 mL, IVPB, [id number], PRN nalOXone, 0.1 mg, 0.25 mL, IV PUSH, As directed, PRN nitroglycerin, 0.4 mg, 1 Tab, SUBLING, [id number], PRN ondansetron, 4 mg, 2 mL, IV PUSH, Q4H, PRN pantoprazole, 40 mg, 1 Tab, ORAL, ACBkfst potassium bicarbonate-citric acid, 20 mEq, 1 Tab, ORAL, As directed, PRN potassium bicarbonate-citric acid, 40 mEq, 2 Tab, ORAL, As directed, PRN potassium chloride 10 mEq/100 mL intravenous solution, 10 mEq, 100 mL, IVPB, As directed, PRN Sodium Chloride 0.9% IV Tubing Flush (ONE) 250 mL, 250 mL, IV Sodium Chloride 0.9% IV Tubing Flush (TWO) 250 mL, 250 mL, IV Sodium Chloride 0.9% Saline Flush, 10 mL, IV FLUSH, Q12H Sodium Chloride 0.9% Saline Flush, 10 mL, IV FLUSH, As directed, PRN solifenacin, 5 mg, 1 Tab, ORAL, QBedtime temazepam, 7.5 mg, 1 Cap, ORAL, QBedtime, PRN traMADol, 50 mg, 1 Tab, ORAL, Q4H, PRN Valium, 2.5 mg, 0.5 mL, IV, TID, PRN vancomycin pharmacy to dose, Rx to Dose, N/A, As directed Venofer Zosyn Home aspirin, 81 mg, ORAL, QMorning clindamycin 300 mg oral capsule, 300 mg, 1 Cap, ORAL, TID lisinopril, 40 mg, ORAL, DAILY mupirocin topical 2% ointment, 1 Applic, TOP, TID solifenacin 5 mg oral tablet, 5 mg, 1 Tab, ORAL, QBedtime Lab Results Labs All 24H Lab Results Date CRP C-Reactive Protein 1.40 mg/dL (HIGH) 12/25/24 20:44 PDT Auto NRBC % 0 % 12/25/24 20:44 PDT Lactic Acid WB 0.83 mmol/L 12/25/24 20:44 PDT Auto Neutrophil Percent 79.3 % (HIGH) 12/25/24 20:44 PDT Auto Neutrophil Absolute 13.1 K/uL (HIGH) 12/25/24 20:44 PDT Auto Lymphocyte Percent 10.6 % (LOW) 12/25/24 20:44 PDT Auto Lymphocyte Absolute 1.7 K/uL 12/25/24 20:44 PDT Auto Monocyte Percent 4.6 % (LOW) 12/25/24 20:44 PDT Auto Monocyte Absolute 0.8 K/uL 12/25/24 20:44 PDT Auto Basophil Percent 0.8 % 12/25/24 20:44 PDT Auto Basophil Absolute 0.1 K/uL 12/25/24 20:44 PDT Auto Eosinophil Percent 4.7 % 12/25/24 20:44 PDT Auto Eosinophil Absolute 0.8 K/uL (HIGH) 12/25/24 20:44 PDT WBC 16.4 K/uL (HIGH) 12/25/24 20:44 PDT RBC 6.07 M/uL (HIGH) 12/25/24 20:44 PDT HGB 12.8 gm/dL 12/25/24 20:44 PDT HCT 40.7 % 12/25/24 20:44 PDT MCV 67.0 fL (LOW) 12/25/24 20:44 PDT MCH 21.1 pg (LOW) 12/25/24 20:44 PDT MCHC 31.5 gm/dL 12/25/24 20:44 PDT RDW 19.4 % (HIGH) 12/25/24 20:44 PDT PLT 815 K/uL (HIGH) 12/25/24 20:44 PDT MPV 8.40 fL 12/25/24 20:44 PDT Sedimentation Rate Auto 33 mm/hr (HIGH) 12/25/24 20:44 PDT Sodium Level 136 mmol/L 12/25/24 20:44 PDT Potassium Level 4.7 mmol/L 12/25/24 20:44 PDT Chloride Level 104 mmol/L 12/25/24 20:44 PDT CO2/Carbon Dioxide 27 mmol/L 12/25/24 20:44 PDT Anion Gap 5.0 - 12/25/24 20:44 PDT Glucose, Random 95 mg/dL 12/25/24 20:44 PDT BUN 27 mg/dL (HIGH) 12/25/24 20:44 PDT Creatinine 0.63 mg/dL 12/25/24 20:44 PDT BUN/Creat Ratio 42.9 (HIGH) 12/25/24 20:44 PDT Osmolality, Calculated 277 mOsm/L 12/25/24 20:44 PDT Calcium Level 9.0 mg/dL 12/25/24 20:44 PDT Total Protein 6.8 gm/dL 12/25/24 20:44 PDT Albumin Level 3.8 gm/dL 12/25/24 20:44 PDT Globulin Level 3.0 gm/dL 12/25/24 20:44 PDT A/G Ratio 1.3 12/25/24 20:44 PDT Bilirubin, Total 0.3 mg/dL 12/25/24 20:44 PDT AST 16 IntUnit/L 12/25/24 20:44 PDT ALT 9 IntUnit/L 12/25/24 20:44 PDT ALP 78 IntUnit/L 12/25/24 20:44 PDT eGFR 88 mL/min/1.73m2 12/25/24 20:44 PDT Diagnostics Results No Qualifying Data No Qualifying Data [id number] Female 12/26/2024 [facility] Hospitalist Admission H&P 01/19/[address] [facility] History and Physical Patient: DO ISAAC [...] is an 83-year-old female visiting from [place] with a past medical history of TIA [...] Ordered: Admission Status Difficulty speaking (Difficulty speaking, [id number]) Orders: aspirin (aspirin), 81 mg, CHEW, DAILY, [...] this document may have been created using [employer] and may contain mistakes. Signature [...] Clear 01/18/24 21:10 PDT UA - Specific [place] 1.030 (ABNORMAL) 01/18/24 21:10 PDT UA - [...] more distal vessel in accordance with [place] Symptomatic Carotid Endarterectomy Trial (NASCET). If you [...] NO ACUTE ST/T WAVE CHANGES READ AT 2102 ABNORMAL ECG Electronic Signature: MD Swetha, Mary Jane Leung Hsjw 01/18/2024 21:12:29 [id number] Female 01/19/2024 [facility] Vital Signs Vital Sign Value Date Comments Source Temperature (F) 98.0 [degF] [facility]/01/[address] [facility] Systolic BP 148 mm[Hg] 01/01/[address] [facility] Diastolic BP 81 mm[Hg] 01/01/[address] [facility] Peripheral Pulse Rate 71 bpm 01/01/[address] [facility] Respiratory rate 17 br/min 01/01/2025 [address] Pulse Oximetry 98 % 01/01/2025 60 [facility] Temperature (F) 97.9 [degF] [facility] 153 mm[Hg] [facility] Diastolic BP 73 mm[Hg] 01/01/20[facility] Dose calculation weight (kg) 60.1 kg 01/01/[address] [facility] Respiratory rate 18 br/min 01/01/20[address] [facility] Weight (kg) 60.1 kg 01/01/2025 [facility] Peripheral Pulse Rate 76 bpm 01/01/[address] [facility] Pulse Oximetry 97 % 01/01/[facility] Peripheral Pulse Rate 70 bpm 12/28/[address] [facility] Temperature (F) 98.5 [degF] 12/28/2024 [facility] Respiratory rate 16 br/min 12/28/2024 [facility] Systolic BP 119 mm[Hg] 12/28/2024 60 [facility] Diastolic BP 60 mm[Hg] 12/28/2024 60 [facility] Pulse Oximetry 95 % 12/28/[address] [facility] Respiratory rate 18 br/min 12/28/2024 [facility] Peripheral Pulse Rate 70 bpm 12/28/2024 60 [facility] Temperature (F) 97.5 [degF] 12/28/2024 [facility] [place] Pulse Oximetry 99 % 12/28/[address] [facility] Systolic BP 121 mm[Hg] 12/28/2024 60 [facility] Diastolic BP 54 mm[Hg] 12/28/2024 60 [facility] Temperature (F) 98.3 [degF] 12/28/2024 [facility] [place] Pulse Oximetry 95 % 12/28/[address] [facility] Peripheral Pulse Rate 75 bpm 12/28/2024 60 [facility] Respiratory rate 18 br/min 12/28/2024 60 [facility] [place] Systolic BP 129 mm[Hg] 12/28/2024 60 [facility] Diastolic BP 66 mm[Hg] 12/28/2024 60 [facility] [place] Heart Rate Monitored 82 bpm 12/28/2024 [facility] [place] Heart Rate Monitored 78 bpm 12/28/2024 60 [facility] [place] Mean BP 98 mm[Hg] 12/28/2024 60 [facility] [place] Heart Rate Monitored 77 bpm 12/27/2024 60 [facility] [place] Mean BP 95 mm[Hg] 12/27[facility]2024 [facility] BP 96 mm[Hg] 12/27/2024 [facility] 10 L/min 12/27/2024 [facility] [place] Weight (kg) 65.4 kg 12/26/2024 60 [facility] [place] Dose calculation weight (kg) 65.4 kg 12/26/2024 60 [facility] [place] Body Mass Index 26.37 kg/m2 12/26/2024 [facility] [place] HeightLength (cm) 157.48 cm 12/26/2024 [facility] [place] Dose calculation weight (kg) 65.4 kg 12/26/2024 60 [facility] [place] Weight (kg) 65.4 kg 12/26/2024 60 [facility] [place] Systolic BP 141 mm[Hg] 12/20/2024 60 [facility] [place] Diastolic BP 69 mm[Hg] 12/20/2024 60 [facility] [place] Pulse Oximetry 98 % 12/20/2024 60 [facility] [place] Heart Rate Monitored 75 bpm 12/20/[address] [facility] [place] Respiratory rate 18 br/min 12/20/2024 [facility] Temperature (F) 98.2 [degF] 12/20/2024 60 [facility] Peripheral Pulse Rate 80 bpm 12/20/2024 60 [facility] Systolic BP 143 mm[Hg] 12/20/2024 60 [facility] Diastolic BP 70 mm[Hg] 12/20/2024 60 [facility] Dose calculation weight (kg) 56.8 kg 12/20/2024 60 [facility] Respiratory rate 20 br/min 12/20/2024 60 [facility] Weight (kg) 56.8 kg 12/20/2024 60 [facility] Pulse Oximetry 98 % 12/20/2024 60 [facility] [place] Temperature (F) 97.4 [degF] 01/19/2024 60 [facility] [place] Peripheral Pulse Rate 84 bpm 01/19/2024 60 [facility] Respiratory rate 18 br/min 01/19/2024 60 [facility] Systolic BP 128 mm[Hg] 01/19/2024 60 [facility] Diastolic BP 71 mm[Hg] 01/19/2024 60 [facility] Pulse Oximetry 95 % 01/19/[address] [facility] Temperature (F) 97.4 [degF] 01/19/2024 60 [facility] Pulse Oximetry 97 % 01/19/[address] [facility] [place] Peripheral Pulse Rate 76 bpm 01/19/2024 60 [facility] Systolic BP 138 mm[Hg] 01/19/2024 [facility] Diastolic BP 71 mm[Hg] 01/19/2024 [facility] Respiratory rate 18 br/min 01/19/[address] [facility] Temperature (F) 97.8 [degF] 01/19/2024 [facility] Per[facility] Pulse Rate 84 bpm 01/19/2024 60 [facility] Systolic BP 137 mm[Hg] 01/19/2024 60 [facility] Diastolic BP 72 mm[Hg] 01/19/2024 60 [facility] Pulse Oximetry 97 % 01/19/2024 [facility] Respiratory rate 18 br/min 01/19/2024 60 [facility] HeightLength (cm) 157.5 cm 01/19/2024 60 [facility] [place] Weight (kg) 73.9 kg 01/19/[address] [facility] Body Mass Index 29.79 kg/m2 01/19/[address] [facility] Dose calculation weight (kg) 73.9 kg 01/19/2024 60 [facility] Heart Rate Monitored 77 bpm 01/19/2024 60 [facility] [place] Heart Rate Monitored 72 bpm 01/19/2024 60 [facility] [place] Heart Rate Monitored 77 bpm 01/19/2024 60 [facility] [place] Weight (kg) 65.5 kg 01/19/2024 60 [facility] Dose calculation weight (kg) 65.5 kg 01/19/[address] [facility] Encounters Location Location Details Encounter Type Encounter Number Reason For Visit Attending Provider ADM Date DC Date Status Source 60 60 [facility] Observation [id number] AMS (ALTERED MENTAL SATUS) [facility] [place] 01/18 Active [facility] 60 60 [facility] Emergency [id number] SORE ON LEG Mary Jane Sun 12/20 Active [facility] SVPN- SVPN- Clinic Non Office [id number] Brianne Liu 12/25 Active [facility] 60 60 [facility] Inpatient [id number] 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 EXTREMITY LOWER INCISION AND DRAINAGE DEBRIDEMENT (Left)<sup>1</sup> 12/27/2024 auto-populate d from documented surgical case 60 [facility] ROUTINE VENIPUNCTURE [id number] 12/27/[address] [facility] ROUTINE VENIPUNCTURE [id number] 12/26/[address] [facility] ROUTINE VENIPUNCTURE [id number] 12/26/[address] [facility] ROUTINE VENIPUNCTURE [id number] 12/26/[address] [facility] ROUTINE VENIPUNCTURE [id number] 01/19/[address] [facility] Plan of Care Plan of Care Date Source Extracted from:Title: Hospit alist Discharge Note Author: MD Ortiz, Santiago S Date: 12/28/24 Procedures Performed This Encounter: Date and Time: 0 12/27/2024 15:55 Procedure Performed: E XTREMITY LOWER INCISION AND DRAINAGE DE, Left Performed by: Олег simons MD, Brianne Gloria ? ? stable Discharge Date: 12/28/24 Discharge Location: [facility] with Home Health Care Follow-Up Plans: [facility], Surgeon/Dr. Liu, Wound Care team, and Plastic Surgeon within 2 weeks from discharge Discharge Care Instructions: p lease complete antibiotic regimen as prescribed, please continue wound care per wound [facility] team, please follow up as instructed for ongoing wound care and monitoring for optimal wound healing Discharge Activity: A ctivity As Tolerated Discharge Diet: R egular Diet Diagnostic Tests PendingCulture Anaerobic 12/27/24Culture Anaerobic 12/27/24 12/29/2024 60 [email or web address] Social History Date Source Social History TypeResponse Smoking Status Is there a smoker in the household? No; *Do you have concerns about tobacco use in household? No; Never (less than 100 in lifetime); Never; *Are you ready to quit? N/A entered on: 12/26/24 Sex Female Sex Representation Female (finding) 01/01/2025 [facility] Social History TypeResponse Smoking Status Is there a smoker in the household? No; *Do you have concerns about tobacco use in household? No; Never (less than 100 in lifetime); Never; *Are you ready to quit? N/A entered on: 12/26/24 Sex Female Sex Representation Female (finding) 01/01/2025 [facility] Social History TypeResponse Smoking Status Is there a smoker in the household? No; *Do you have concerns about tobacco use in household? No; Never (less than 100 in lifetime); Never; *Are you ready to quit? N/A entered on: 12/26/24 Sex Female Sex Representation Female (finding) 01/01/2025 60 [facility] [employer] Social History TypeResponse Smoking Status Is there a smoker in the household? No; *Do you have concerns about tobacco use in household? No; Never (less than 100 in lifetime); Never; *Are you ready to quit? N/A entered on: 12/26/24 Sex Female Sex Representation Female (finding) 01/01/2025 60 [facility] [employer] Social History TypeResponse Smoking Status Is there a smoker in the household? No; *Do you have concerns about tobacco use in household? No; Never (less than 100 in lifetime); Never; *Are you ready to quit? N/A entered on: 12/26/24 Sex Female Sex Representation Female (finding) 12/29/2024 [facility] Social History TypeResponse Smoking Status Is there a smoker in the household? No; *Do you have concerns about tobacco use in household? No; Never (less than 100 in lifetime); Never; *Are you ready to quit? N/A entered on: 12/26/24 Sex Female Sex Representation Female (finding) 12/29/2024 60 [facility] [employer] Social History TypeResponse Smoking Status Is there a smoker in the household? No; *Do you have concerns about tobacco use in household? No; Never (less than 100 in lifetime); Never; *Are you ready to quit? N/A entered on: 12/26/24 Sex Female Sex Representation Female (finding) 12/29/2024 60 [facility] Social History TypeResponse Smoking Status Is there a smoker in the household? No; *Do you have concerns about tobacco use in household? No; Never (less than 100 in lifetime); Never; *Are you ready to quit? N/A entered on: 12/26/24 Sex Female Sex Representation Female (finding) 12/26/2024 60 [facility] Social History TypeResponse Smoking Status Is there a smoker in the household? No; *Do you have concerns about tobacco use in household? No; Never (less than 100 in lifetime); Never; *Are you ready to quit? N/A entered on: 12/26/24 Sex Female Sex Representation Female (finding) 12/26/2024 60 [facility] Social History TypeResponse Smoking Status Is there a smoker in the household? No; *Do you have concerns about tobacco use in household? No; Never (less than 100 in lifetime); Never; *Are you ready to quit? N/A entered on: 12/26/24 Sex Female Sex Representation Female (finding) 12/26/2024 60 [facility] Social History TypeResponse Smoking Status Is there a smoker in the household? No; *Do you have concerns about tobacco use in household? No; Never (less than 100 in lifetime); Never; *Are you ready to quit? N/A entered on: 12/26/24 Sex Female Sex Representation Female (finding) 12/26/2024 60 [facility] Social History TypeResponse Smoking Status Is there a smoker in the household? No; *Do you have concerns about tobacco use in household? No; Never (less than 100 in lifetime); Never; *Are you ready to quit? No entered on: 01/19/24 Sex Female Sex Representation Female (finding) 12/20/2024 [facility] Social History TypeResponse Smoking Status Is there a smoker in the household? No; *Do you have concerns about tobacco use in household? No; Never (less than 100 in lifetime); Never; *Are you ready to quit? No entered on: 01/19/24 Sex Female Sex Representation Female (finding) 12/20/2024 [facility] TypeResponse Smoking Status Is there a smoker in the household? No; *Do you have concerns about tobacco use in household? No; Never (less than 100 in lifetime); Never; *Are you ready to quit? No entered on: 01/19/24 Sex Female Sex Representation Female (finding) 12/20/2024 60 [facility] Social History TypeResponse Smoking Status Is there a smoker in the household? No; *Do you have concerns about tobacco use in household? No; Never (less than 100 in lifetime); Never; *Are you ready to quit? No entered on: 01/19/24 Sex Female 60 [facility] Social History TypeResponse Smoking Status Is there a smoker in the household? No; *Do you have concerns about tobacco use in household? No; Never (less than 100 in lifetime); Never; *Are you ready to quit? No entered on: 01/19/24 Sex Female 60 [facility] Social History TypeResponse Smoking Status Is there a smoker in the household? No; *Do you have concerns about tobacco use in household? No; Never (less than 100 in lifetime); Never; *Are you ready to quit? No entered on: 01/19/24 Sex Female Sex Representation Female (finding) 01/19/2024 60 [facility] Social History TypeResponse Smoking Status Is there a smoker in the household? No; *Do you have concerns about tobacco use in household? No; Never (less than 100 in lifetime); Never; *Are you ready to quit? No entered on: 01/19/24 Sex Female Sex Representation Female (finding) 01/19/2024 60 [facility] Amaya lofton
--- NOTE | 2025-05-02 14:33 | ED.GENADULT ---
HPI - General Adult General Chief complaint: General Medical Stated complaint: infection Time Seen by Provider: 05/02/25 14:51 Source: patient and other (Louis Singleton, ENTRY LEVEL PROJECT COORDINATOR) Mode of arrival: ambulatory Limitations: no limitations History of Present Illness ED Provider: HPI narrative: I initially spoke about this patient with Louis Singleton who is a nurse practitioner at an Interventional Radiology, patient was going to have a procedure done to her left lower extremity for vein embolization, patient is status post vascular access for pacemaker placement bilateral femoral access, and it was reported to me that patient had drainage in the area and there was concern that there was underlying abscess, it told me that he used an ultrasound to take a look at the area and 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 She has had no other complaints until she was brought here from the Interventional Radiology Department. Patient states she has had some back pain and hip pain after the procedure but took Tylenol with improvement. Related Data Home Medications ?Medication ?Instructions ?Recorded ?Confirmed acetaminophen 500 mg tablet 1,000 mg PO TID PRN Pain 03/04/22 10/23/24 aspirin 81 mg tablet,delayed 81 mg PO DAILY 03/25/23 10/23/24 release cyanocobalamin (vitamin B-12) 100 100 mcg PO DAILY 03/25/23 10/23/24 mcg tablet ergocalciferol (vitamin D2) 1,250 1,250 mcg PO QWEEK 03/25/23 10/23/24 mcg (50,000 unit) capsule biotin 10 mg-collagen 50 1 cap PO DAILY 06/01/24 10/23/24 mg-keratin 500 zi-ojxagdndgdo-umdacqa capsule calcium 600 mg (as 1 tab PO DAILY 06/01/24 10/23/24 carbonate)-vitamin D3 5 mcg (200 unit) tablet lisinopril 10 mg tablet 10 mg PO DAILY 06/01/24 10/23/24 omega 9-tqk-pww-fish oil 1,000 mg 1 cap PO TID 06/01/24 10/23/24 (120 mg-180 mg) capsule (Fish Oil) solifenacin 5 mg tablet 5 mg PO BEDTIME 06/01/24 10/23/24 Allergies Allergy/AdvReac Type Severity Reaction Status Date / Time IV Contrast Allergy Severe Rash/swelli Uncoded 05/02/25 14:35 ng Latex Allergy Severe Rash/bliste Uncoded 05/02/25 14:35 rs Medical Tape Allergy Severe Rash/bliste Uncoded 05/02/25 14:35 rs amoxicillin Allergy Intermediate Swelling Uncoded 05/02/25 14:35 sulfa drugs Allergy Intermediate Rash Uncoded 05/02/25 14:35 Review of Systems Constitutional: Constitutional: Reports as per HPI [facility] Past Medical History Medical History [place] (hard of hearing) Environmental allergies 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) Osteoarthritis Lumbar stenosis Thyroid nodule History of diverticulosis Asthma Hx of radiation therapy Invasive ductal carcinoma of right breast Arthritis Surgical History History of lumpectomy of left breast (06/12/24) Hx of cataract extraction Hx of umbilical hernia repair Hx of kyphoplasty Hx of total knee replacement (~2020) History of total mastectomy of right breast (2007) History of right breast biopsy History of incisional hernia repair History of hysterectomy Family History Family History Mother Breast cancer Social History Social History Household Members: Significant Other Are you a primary acute care certified nursing assistant to a significant other at home: No Do you presently have visiting nurse or other home services: No Alcohol intake: never Patient Tobacco Use Status: Never used Tobacco Smoked in Last 30 Days: No Use of substances other than those prescribed or required for medical reasons: No Advance Directives: No Advance Directives Information Provided: Yes Do you have a plan to hurt others: No Plan service: No Current occupational status: disabled Physical Exam ED Vital Signs: Vital Signs - 24 hr 05/02/25 14:34 Temperature 98.2 F Pulse Rate 77 Respiratory Rate 18 Blood Pressure 157/73 H Pulse Oximetry 97 Oxygen Delivery Method Room Air BMI result Body Mass Index 22.3 Const Other: See my pictures extremities, groin sites are clean dry, there is attached, groin areas bilaterally appear to be clean dry without drainage without erythema, 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 Patient is an 84y/o F with history of ?HTN, HLD, asthma, right cerebellar PICA CVA, breast cancer s/p radiation, myeloproliferative disease (thrombocytosis/leukocytosis), lower extremity ulcers, polymyalgia rheumatica presenting from U/S after noted to have a groin abscess following recent pacemaker placement for heart block. Also has a chronic LLE wound. Patient c/o L hip pain. U/S techs note that she has and abscess on one side and a pseudoaneurism with hematoma on the other side. Plan: labs including cultures Medical Decision Making Medical Decision Making [facility] Narrative: Patient was brought in for evaluation of concerned that there is underlying infection in the sites of access for a pacemaker, patient has no fevers, I held off any blood work as she is nonfebrile, she had the area evaluated by provider yesterday and was told that everything looks well and it continues to look well, there is no surgeon for an abscess but there was underlying and pseudo aneurysm that was seen on the ultrasound by interventional radiologist provider which is not an uncommon complication from this procedure And there was no evidence for neurovascular compromise distally, patient is otherwise well-appearing, I did contact Dr. Soriano who did the via tiger text he did not get back to me yet so I am getting in touch with [facility] hand sewer just to share pictures with them and establish follow up and obtain recommendations. 1621 Dr. Soriano states that the groin looks well and I agree with that she has follow up with [facility] device clinic and they will follow up with her there Differential Diagnosis Differential Diagnoses: The differential diagnosis associated with the presentation includes (Pseudo aneurysm, abscess, bleeding, infection, cellulitis) Admission/Observation Consideration of admission/observation: Escalation of care including admission/observation considered 2022 Emergency Medicine Coding Guide from [email or web address] on 05/02/2025 All calculations should be rechecked by clinician prior to use RESULT SUMMARY: 4 Estimated Level of Service Problems: Moderate (4) Risk: Moderate (4) Data: Moderate (4) NARRATIVE MDM: This patient's problem complexity is Moderate as patient: has a new undiagnosed problem with uncertain prognosis but that could be serious. This patient's risk is Moderate due to: overall presentation requiring evaluation for a potentially Moderate-risk process. This patient's data complexity is Moderate due to: -discussion of management/testing with external professional INPUTS: Number and Complexity ?> 5 = 4: undiagnosed new problem, uncertain outcome (e) Risk level ?> 3 = Moderate Tests ordered ?> 0 = 0 Tests results reviewed (excluding labs) ?> 0 = 0 Prior external notes reviewed ?> 0 = 0 Assessment requiring and independent historian ?> 0 = No Independent interpretation of tests ?> 0 = No Discussed management/test interpretation w/external professional ?> 1 = Yes Consult Healthcare Provider Management of the patient was discussed with: Chemical Processing Equipment Repairer (Dr. Soriano cardiology) Lab Data MDM Lab Attestation statement: I reviewed the patient's lab results. Tests considered The following testing was considered but not selected: CT angiography of femoral artery, ultrasound femoral artery Discharge Plan Discharge Clinical Impression: Post surgical complication Patient Disposition: Home, Self-Care Additional Instructions: There was concern from the provider in interventional radiologist that you have infection or complication from the catheterization procedure, there was no evidence for infection or drainage at this time the only treatment is to keep the dressing in place, I spoke with the provider who performed the procedure Dr. Soriano they told me you will have a follow up appointment with [facility] for device check and he will be evaluated that point. There was no evidence for drainage or redness to suspect underlying infection. Of course if you spike fevers if you have worsening pain if you have any other concerns please return to the ER. Prescriptions: No Action lisinopril 10 mg tablet 10 mg PO DAILY solifenacin 5 mg tablet 5 mg PO BEDTIME hbxmhy-aprz-fihj-levomef-silic 10-50-500-0.5 mg Capsule 1 cap PO DAILY calcium carbonate-vitamin D3 600 mg-5 mcg (200 unit) Tablet 1 tab PO DAILY omega 7-pux-tew-fish oil [Fish Oil] 1,000 mg (120 mg-180 mg) Capsule 1 cap PO TID acetaminophen 500 mg tablet 1,000 mg PO TID PRN (Reason: Pain) aspirin 81 mg tablet,delayed release (DR/EC) 81 mg PO DAILY cyanocobalamin (vitamin B-12) 100 mcg tablet 100 mcg PO DAILY ergocalciferol (vitamin D2) 1,250 mcg (50,000 unit) capsule 1,250 mcg PO QWEEK Print Language: Kyrgyz
[2025-05-02 14:34] VITALS: BP 157/73; PULSE 77; RESP 18; TEMP 36.8; O2SAT 97; BMI 22.3
--- NOTE | 2025-05-02 15:06 | PC.NURSE ---
Per MD, holding off on labs pending consult with team who performed procedure.
--- OUTSIDE RECORDS SUMMARY | 2025-05-02 15:28 | XMS_ITS | Encounter Summary ---
Author Organization [facility] Address [address] [place] [phone] Phone Care Team Providers Care Software Intern Name Role Phone Maine Vincent MD Primary Care Pro vider Encounter Details Date Type Department Care Team (Late st Contact Info) Description 11/12/2019 Procedure Pass [facility] PERIOPERATIVE DEPT [address] [place] [id number] Social History Tobacco Use Types Packs/Day Years [...] on filedocumented in this encounter Care Teams Software Intern Relationship Specialty Start Date End Date Maine Vincent MD [address] [place] [address] PCP - General Internal Medicine 01/22/19 documented as of this encounter Additional Source Comments The information contained in this document represents components of the legal health record. It is not the complete legal health record.[facility]
--- OUTSIDE RECORDS SUMMARY | 2025-05-02 15:28 | XMS_ITS | Clinical Summary ---
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
--- OUTSIDE RECORDS SUMMARY | 2025-05-02 15:28 | XMS_ITS | Clinical Summary ---
Author Organization [facility] Channel [employer] [facility] Address [address] [facility] [place] [address] Care Team Providers Care Layout Operator Name Role Phone Unavailable Primary Care Provider [...] Adults 18 yrs or above (or HM Modifier)([facility]) 1958 SDOH Screening Reminder: Annika hameed for all adults ([facility]) 1958 Tobacco Smoking Cessation: i n Adults excluding Women: Behavioral and Pharmacotherapy Interventions ([facility]) 1958 DTaP/Tdap/Td Vaccines ([facility]) (1 - Tdap) 1960 Pneumococcal Vaccination Scr eening: Patients 50+ yrs of age ([facility]) (1 of 1 - PCV) 1991 Zoster/Shingles Vaccine Seri es Screening: Adults aged 18+ yrs (or HM Modifiers)([facility]) (1 of 2) 1991 Osteoporosis Screening to Pr event Fractures: Women aged 65 years+ ([facility]) 2006 RSV Vaccines (1 - 1-dose 75+ series) 2016 COVID-19 Vaccine Screening: Initial Series and Booster Status ([facility]) ( - 2023- season) 2024 Flu Vaccination: Ages 65+: Y early High Dose Recommended (or Modifier)([facility]) 04/12/2025 Medical Devices Not on file Insurance ([employer]) [address] [place], [place] [id number] [facility]
--- OUTSIDE RECORDS SUMMARY | 2025-05-02 15:28 | XMS_ITS ---
Author Organization [facility] Address [address] [place] [id number] Phone Care Team Providers Care Personal Lines Insurance Advisor Name Role Phone Ghulam Acevedo MD Primary Care Provider [phone] Post Acute Care Coordination Status:Ongoing (Active) Start date:04/26/2025 Enrollment date:04/29/2025 Enrollment reason:Post acute care coordination Case Team Name Relationship Phone Stephanie Marley RN Post Acute Floor Helper(R luz marina Staff) Continued Care and Services Coordination
[2025-05-02 16:38] VITALS: BP 154/61; PULSE 88; RESP 16; TEMP 36.8; O2SAT 98
== END 2025-05-02 16:47 | disposition home or self-care (01) ==
PROVIDERS: Emergency Provider Emergency Medicine; PCP Internal Medicine
DX: I97.89 Other postprocedural complications and disorders of the circulatory system, not elsewhere classified (principal); M25.552 Pain in left hip; M54.9 Dorsalgia, unspecified; I10 Essential (primary) hypertension; J45.909 Unspecified asthma, uncomplicated; Z95.0 Presence of cardiac pacemaker; Z85.3 Personal history of malignant neoplasm of breast; Z79.899 Other long term (current) drug therapy; Z86.79 Personal history of other diseases of the circulatory system
CPT/HCPCS: 99282; 99283

== ENCOUNTER 2025-05-31 10:45 | Outpatient (AMB) | payer MEDICARE, SELFPAY ==
--- OUTSIDE RECORDS SUMMARY | 2025-05-28 11:00 | XMS_ITS | Encounter Summary ---
Author Organization [facility] Address [address] [place] [address] Care Team Providers Care Emergency Department Technician Name Role Phone Ghulam Acevedo MD Primary Care Provider [phone] Reason for Visit * Reason Comments Wound Care Encounter Details Date Type Department Care Team (Late st Contact Info) Description 05/28/2025 11:00 AM EDT Office Visit [facility] [address] [place] [phone] Romeo Jones PA [address] [place] [address] Chronic venous hypertension (idiopathic) with ulcer of left lower extremity (CODE) ([facility] V24, [facility] V28) (Primary Dx); Non-pressure chronic ulcer of other part of left lower leg with fat layer exposed ([facility] V24, [facility] V28); Non-pressure chronic ulcer of other part of left lower leg limited to breakdown of skin ([facility] V24, [facility] V28) Social History Tobacco Use Types Packs/Day Years [...] Record ed Within the last 3 months, ho w many times did you visit the [...] on file documented as of this encounter Last Filed Vital Signs Vital Sign Reading Time Taken Comments Blood Pressure 152/59 05/28/2025 11:03 AM EDT Pulse 64 05/28/2025 11:03 AM EDT Temperature 36 C (96.8 F) 05/28/2025 11:03 AM EDT Respiratory Rate 17 05/28/2025 11:03 AM EDT Oxygen Saturation 100% 05/28/2025 11:03 AM EDT Inhaled Oxygen Concentration - - Weight - - Height - - Body Mass Index - - documented in this encounter Progress Notes * Calista Mcmahan RN - 05/28/2025 11:00 AM EDT PROVIDER ORDERS Go to ER if you are presenting with fever, chills, increased redness, pain, swelling, warmth aroundwound area and/or foul smelling odor. If you have any questions or concerns, please contact the [facility] at . Follow up(s)/ Referrals: Vascular: Appointment as scheduled Usp: Home care: [facility] Additional Orders: Increase protein in your diet to help promote wound healing Lidocaine Orders: Apply Lidocaine 4% Topical Solution prior to debridements at Wound Care appointments Edema Control: (If your compression wrap(s) feel to tight, please elevate your leg(s) about heart level. If your wrap(s) are becoming painful and/or you loose sensation of toes/ are having toe discoloration (a change from your baseline), please remove / unwrap compression and notify [facility] [place] at . ) Tubigrip to left lower extremity. Apply first thing in the morning prior to getting out of bed, OK to remove at bedtime. Ensure tubigrip extends from just behind the toes to about 2 finger widths below the knee., Tubigrip E Offloading: N/A Negative Pressure Wound Therapy: (If wound vac is off/non functioning for more than 2 hours, please remove vac dressing, apply a wetto dry dressing and notify your home care agency) N/A Cellular/Tissue Based Products: N/A Bathing / Showering / Hygiene: Ok to shower with dressing on, then change dressing right after. Non-wound Condition/ Other Skin Care: N/A Wound Location(s): Wound #1 (Left medial proximal lower leg): -Wound is healed Wound #2 (Left medial distal lower leg): Cleanser: Cleanse with Normal Saline Periwound: Apply Zinc Oxide to tommie wound Topical: N/A Primary dressing: Hydrofiber with silver (Aquacel AG)- cut to fit to wound bed Secondary dressinx4 woven gauze (non-sterile) Secure with: 3 conforming gauze roll, Spandage size 3, 1 paper tape Compression Therapy: Tubigrip E Dressing Change Frequency: Three times each week * Isabel Mendenhall RN - 05/28/2025 11:00 AM EDT Discharge Patient directed to check out at front desk person and collect visit summary with wound care directions and book follow up as directed. Dressings applied: Wound #1 (Left medial proximal lower leg): Cleanser: Normal Saline Periwound: Zinc Oxide Primary dressing: Hydrofiber with silver (Aquacel AG) Secondary dressinx4 woven gauze Secure with: 3 conforming gauze roll, Spandage size 3, 1 paper tape Compression Therapy: Tubigrip E Wound #2 (Left medial distal lower leg): Cleanser: Normal Saline Periwound: Zinc Oxide Primary dressing: Hydrofiber with silver (Aquacel AG) Secondary dressinx4 woven gauze Secure with: 3 conforming gauze roll, Spandage size 3, 1 paper tape Compression Therapy: Tubigrip E Dressing technique was demonstrated and explained. Patient questions answered. Pt discharge from wound care center without issue or incidence. documented in this encounter Plan of Treatment Upcoming Encounters Date Type Department Care Team (Late st Contact Info) Description 07/22/2025 11:00 AM EST Office Visit [facility] [address] [place] [phone] Elo Onofre MD [address] [place] [address] 09/25/2025 11:00 AM EST Office Visit Adult Medicine [address] [phone] Ghulam Acevedo MD [address] [place] [address] Pending Results Name Type Priority Associated Diagnoses Date /Time Debridement Venous Ulcer (Cluster ) Left;Medial;Lower Leg Procedures Routine Chronic venous hypertension (idiopathic) with ulcer of left lower extremity (CODE) ([facility] V24, [facility] V28) Non-pressure chronic ulcer of other part of left lower leg with fat layer exposed ([facility] V24, [facility] V28) 05/28/2025 11:00 AM EDT documented as of this encounter Goals Goal Patient Goal Type Associated Problems Recent Progress Patient-Stated? Author Decrease Wound Volume by X% by date (in notes) Care Plan Impaired Tissue On track( 025 11:15 AM EDT) Calista Vidal RN Patient and Caregiver Understand Wound Care Education Care Plan Impaired Tissue On track( 025 11:15 AM EDT) Calista Vidal RN Wound volume [...] Mcmahan RN documented as of this encounter Procedures Procedure Name Priority Date/Time Associated Diagnosis Comments DEBRIDEMENT Routine 05/28/2025 11:00 AM EDT Chronic venous hypertension (idiopathic) with ulcer of left lower extremity (CODE) ([facility] V24, [facility] V28) Non-pressure chronic ulcer of other part of left lower leg with fat layer exposed ([facility] V24, [facility] V28) documented in this encounter Visit Diagnoses Diagnosis Chronic venous hypertension (idiopathic) with ulcer of left lower extremity (CODE) ([facility] V24, [facility] V28)- Primary Non-pressure chronic ulcer of other part of left lower leg with fat layer exposed ([facility] V24, [facility] V28) Non-pressure chronic ulcer of other part of left lower leg limited to breakdown of skin ([facility] V24, [facility] V28) documented in this encounter Additional Health Concerns Active [...] documented as of this encounter Care Teams Emergency Department Technician Relationship Specialty Start Date End Date Ghulam Acevedo MD [address] [place] [phone] PCP - General Internal Medicine 05/27/21 documented as of this encounter
--- NOTE | 2025-05-31 10:51 | A.OFFVIS_ITS ---
Vital Signs 05/31/25 10:59 Height 5 ft 2 in Weight 119 lb BMI 21.8 BP 157/72 H Blood Pressure Location Lt brachial Position Sitting Pulse 75 Intake Visit Reasons: breast exam Intake Note: Patient is seen in office for 6 month follow up, breast exam. Pt c/o: denies any concerns mm:04/10/25 Trade Show Coordinator Required: No Lock Tender Chief Operator: Lock Tender Chief Operator Present Accompanied by: Self / Same As Patient Allergies IV Contrast Allergy (Severe, Uncoded 05/31/25 10:59) Rash/swelling Latex Allergy (Severe, Uncoded 05/31/25 10:59) Rash/blisters Medical Tape Allergy (Severe, Uncoded 05/31/25 10:59) Rash/blisters amoxicillin Allergy (Intermediate, Uncoded 05/31/25 10:59) Swelling sulfa drugs Allergy (Intermediate, Uncoded 05/31/25 10:59) Rash Medication List - Last Reconciled 05/31/25 by Alistair Tyler MD acetaminophen 1,000 mg PO TID PRN aspirin 81 mg PO DAILY yjbgwx-fwfq-qcqe-levomef-silic 10-50-500-0.5 mg 1 cap PO DAILY calcium carbonate-vitamin D3 600 mg-5 mcg (200 unit) 1 tab PO DAILY cyanocobalamin (vitamin B-12) 100 mcg PO DAILY ergocalciferol (vitamin D2) 1,250 mcg PO QWEEK lisinopril 10 mg PO DAILY omega 7-qmj-vaa-fish oil 1,000 (120-180) mg (Fish Oil) 1 cap PO TID solifenacin 5 mg PO BEDTIME HPI Comments Details: Bella Hinton is a 84 year old female patient former patient of Dr. Lund returning following left breast lumpectomy with localizer and left axillary sentinel node biopsy performed on 06/12/2024. Mammogram of 03/26/2024 revealed a focal asymmetry in the left breast confirmed on subsequent images and ultrasound. She underwent an ultrasound-guided core biopsy of the left breast on 05/17/2024 which revealed invasive breast cancer with mixed lobular and ductal features, grade 3, ER/RI positive, Ki-67 high proliferation index. She underwent a left breast lumpectomy with localizer and left axillary sentinel node biopsy on 06/12/2024. Pathology revealed a 2.3 cm invasive ductal carcinoma with lobular features, grade 3, ER/RI positive, HER2 Idris negative, Ki-67 high with negative margins, DCIS with greater than 2 mm margins. One left axillary sentinel node revealed isolated tumor (pT2, pN0 (sn) (i+)). Her past history is significant for a previous right partial mastectomy with sentinel node biopsy ([place]) performed in 2007 for an invasive lobular carcinoma with DCIS, ER/RI positive, HER2 Idris negative. [place] nodes were negative for metastatic disease. She subsequently underwent radiation therapy which was completed on 04/01/2008. Patient refused aromatase inhibitor therapy. Her postoperative course was complicated by hematoma and she continues to feel a lump at the site of surgery. She recently went to [place] to visit her children and had a good visit. She was evaluated by Dr. English and a bone density scan requested to determine whether she will go on tamoxifen or AI. She was subsequently evaluated by Dr. Onofre at [facility]. They also discussed adjuvant treatment but she was concerned about the side effects in the decision was made to hold off on radiation therapy and aromatase inhibitor/tamoxifen. She denies any new breast symptoms. 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 She reports losing a significant amount of weight during her illness. 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) Osteoarthritis Lumbar stenosis Thyroid nodule History of diverticulosis Asthma Hx of radiation therapy Invasive ductal carcinoma of right breast Arthritis Surgical History History of lumpectomy of left breast (06/12/24) Hx of cataract extraction Hx of umbilical hernia repair Hx of kyphoplasty Hx of total knee replacement (~2020) History of total mastectomy of right breast (2007) History of right breast biopsy History of incisional hernia repair History of hysterectomy Family History Mother Breast cancer Social History Household Members: Significant Other Are you a primary day care center director to a significant other at home: No Do you presently have visiting nurse or other home services: No Alcohol intake: never Patient Tobacco Use Status: Never used Tobacco service: No Current occupational status: disabled Female Reproductive History Menstrual Age of Menarche: 11 Review of Systems Const All systems reviewed & are unremarkable except as noted in HPI and below GI Reports no additional complaints Denies nipple discharge Musc Reports no additional complaints Skin/Breast Denies breast swelling, Denies breast skin changes, Reports breast pain, Reports breast mass, Denies new lesions and Denies nipple discharge Physical Exam Const General: cooperative, comfortable, no acute distress, well developed, alert and awake Orientation/consciousness: patient oriented x3 Limitations: no limitations Neck Lymphatic: no lymphadenopathy noted Chest Other: Well-healed incision in the lower outer quadrant left breast and axilla. No redness, ecchymosis, or palpable hematoma/seroma is identified. No other palpable masses appreciated in the left breast. Right breast continues to show the chronic scar tissue from previous partial mastectomy in the upper inner quadrant. No other palpable mass, skin change or enlarged lymph nodes are appreciated. Resp Effort & Inspection: normal respiratory effort GI Inspection: Yes normal to inspection Skin General skin exam: no rashes or lesions noted Neuro Other: Mobility Assessment: 1. 3 meter assessment time (seconds) 8 2. Gait observations: slow tentative pace, using cane General: patient oriented x3 Extrem General: Yes no clubbing, cyanosis or edema Assessment & Plan Assessment & Plan (1) Invasive ductal carcinoma of left breast: Code(s): C50.912 - Malignant neoplasm of unspecified site of left female breast Category: Medical Plan 84-year-old female patient previous history of right breast carcinoma now with a new left breast invasive ductal carcinoma with lobular features returning status post left breast lumpectomy with localizer and left axillary sentinel node biopsy on 06/12/2024. Her most recent mammogram of 04/10/2025 revealed no mammographic evidence of malignancy (BI-RADS 2). Examination today reveals persistent scar tissue in the right breast from the prior partial mastectomy and a well-healed incision in the left breast with no new suspicious changes in either breast. I recommended follow up in 6 months. She is scheduled for her annual mammogram on 04/14/2026. She is welcome to call sooner for any new concerns. Coding Level of Care Code Est Pt Level 3 (26432) Complex EM visit Add On G2211 Diagnoses Invasive ductal carcinoma of left breast C50.912
[2025-05-31 10:59] VITALS: BP 157/72; PULSE 75; BMI 21.8
--- OUTSIDE RECORDS SUMMARY | 2025-05-31 11:23 | XMS_ITS | Encounter Summary ---
Author Organization [facility] Address [address] [place] [address] Care Team Providers Care Call Center Professional Name Role Phone Ghulam Acevedo MD Primary Care Provider [phone] Encounter Details Date Type Department Care Team ([facility] st Contact Info) Description 04/29/[address] [facility] - Main Lab [address] [facility] [place] [phone] Annika Barrera MD [address] [address] Weakness Social History Tobacco Use Types Packs/Day Years [...] as of this encounter Plan of Treatment Upcoming Encounters Date Type Department Care Team (Late st Contact Info) Description 07/22/2025 11:00 AM EST Office Visit [facility] Hematology Oncology [address] [place] [phone] Elo Onofre MD [address] [place] [phone] 09/25/2025 11:00 AM EST Office Visit Adult [address] [phone] Ghulam Acevedo MD [address] [place] [address] documented as of this encounter Goals Goal Patient Goal Type Associated Problems Recent Progress Patient-Stated? Author Decrease Wound Volume by X% by date (in notes) Care Plan Impaired Tissue On track( 11:15 AM EDT) No Calista Mcmahan RN Patient and Caregiver Understand Wound Care Education Care Plan Impaired Tissue On track( 11:15 AM EDT) Calista Vidal RN Wound volume breakdown reduced by X% by week 4 Care Plan Impaired Tissue Calista Vidal RN Wound volume breakdown reduced by X% by week 8 Care Plan Impaired Tissue No Calista Mcmahan RN Wound volume breakdown reduced by X% [...] needed related to ulceration/compr omised skin integrity. Calista Vidal RN documented as of this encounter Procedures Procedure Name Priority Date/Time Associated Diagnosis Comments THYROID STIMULATING HORMONE WITH REFLEX TO FREE T4 AND FREE T3 Routine 04/29/2025 6:10 AM EDT Weakness VITAMIN B12 AND FOLATE Routine 6:10 AM EDT Weakness COMPLETE BLOOD COUNT Routine 04/29/2025 6:10 AM EDT Weakness COMPREHENSIVE METABOLIC PANEL Routine 04/29/2025 6:10 AM EDT Weakness documented in this encounter Results * (ABNORMAL) Vitamin B12 and folate (04/29/2025 6:10 AM EDT) Vitamin B-12 >2,000(H) 250 - 900 pcg/mL LAB CHEMISTRY METHOD 04/29/2025 12:49 PM EDT [facility] Folate 7.1 2.8 - 17.0 ng/ml LAB CHEMISTRY METHOD 04/29/2025 12:49 PM EDT [facility] Blood Venous blood specimen / Unknown Venipuncture / Unknown 04/29/2025 6:10 AM EDT 04/29/2025 10:23 AM EDT Annika Barrera MD LAB BLOOD ORDERABLES Fin al Result Performing Organization Address [facility]/ZIP Co de Phone Number [facility] [address] [place] [address], [place] [phone] * Thyroid stimulating hormone with reflex to free t4 and free t3 (04/29/2025 6:10 AM EDT) [facility] TSH 2.11 0.40 - 4.00 mcIU/mL LAB CHEMISTRY METHOD 04/29/2025 1:16 PM EDT [facility] Blood Venous blood specimen / Unknown Venipuncture / Unknown 04/29/2025 6:10 AM EDT 04/29/2025 10:23 AM EDT Annika Barrera MD LAB BLOOD ORDERABLES Fin al Result Performing Organization Address [facility] Co de Phone Number [facility] [address] [place] [address], [place] [phone] * (ABNORMAL) Comprehensive metabolic panel (04/29/2025 6:10 AM EDT) [facility] Sodium 136 133 - 145 mmol/L LAB CHEMISTRY METHOD 04/29/2025 12:49 PM EDT [facility] Potassium 5.0 3.5 - 5.5 mmol/L LAB CHEMISTRY METHOD 04/29/2025 12:49 PM EDT [facility] Chloride 103 96 - 110 mmol/L LAB CHEMISTRY METHOD 04/29/2025 12:49 PM EDT [facility] CO2 24 21 - 32 mmol/L LAB CHEMISTRY METHOD 04/29/2025 12:49 PM T [facility] Anion Gap 9 3 - 11 LAB CHEMISTRY METHOD 04/29/2025 12:49 PM EDT [facility] Glucose 55(L) 70 - 100 mg/dL LAB CHEMISTRY METHOD 04/29/2025 12:49 PM [facility] BUN 9 5 - 25 mg/dL LAB CHEMISTRY METHOD 04/29/2025 12:49 PM [facility] Creatinine 0.48(L) 0.50 - 1.10 mg/dL LAB CHEMISTRY METHOD 04/29/2025 12:49 PM [facility] eGFR 94 >=60 mL/min/1. 73m2 LAB CHEMISTRY METHOD 04/29/2025 12:49 PM [facility] Comment:Calculation based on the Chronic Kidney Disease Epidemiology Collaboration (CKD-EPI) equation refit without adjustment for race. BUN/Creatinine Ratio 18.8 LAB CHEMISTRY METHOD 04/29/2025 12:49 PM [facility] Calcium 7.9(L) 8.5 - 10.5 mg/dL LAB CHEMISTRY METHOD 04/29/2025 12:49 PM [facility] AST (SGOT) 19 10 - 42 unit/L LAB CHEMISTRY METHOD 04/29/2025 12:49 PM [facility] ALT (SGPT) 10 10 - 60 unit/L LAB CHEMISTRY METHOD 04/29/2025 12:49 PM [facility] Alkaline Phosphatase 90 42 - 121 unit/L LAB CHEMISTRY METHOD 04/29/2025 12:49 PM [facility] Total Protein 4.7(L) 6.0 - 8.0 g/dL LAB CHEMISTRY METHOD 04/29/2025 12:49 PM [facility] Albumin 2.2(L) 3.2 - 5.0 g/dL LAB CHEMISTRY METHOD 04/29/2025 12:49 PM [facility] Total Bilirubin 0.2 0.0 - 1.4 mg/dL LAB CHEMISTRY METHOD 04/29/2025 12:49 PM [facility] Blood Venous blood specimen / Unknown Venipuncture / Unknown 04/29/2025 6:10 AM EDT 04/29/2025 10:23 AM EDT us Annika Barrera MD LAB BLOOD ORDERABLES Fin al Result [facility] [address] [place] [address], * (ABNORMAL) Complete blood count (04/29/2025 6:10 AM EDT) [facility] WBC 18.2(H) 4.8 - 10.8 K/mcL LAB HEMETOLOGY METHOD 04/29/2025 11:39 AM [facility] RBC 4.10 3.80 - 4.80 M/mcL LAB HEMETOLOGY METHOD 04/29/2025 11:39 AM [facility] Hemoglobin 8.7(L) 11.5 - 16.0 g/dL LAB HEMETOLOGY METHOD 04/29/2025 11:39 AM [facility] Hematocrit 29.7(L) 35.0 - 47.0 % LAB HEMETOLOGY METHOD 04/29/2025 11:39 AM [facility] MCV 72.6(L) 79.0 - 98.0 FL LAB HEMETOLOGY METHOD 04/29/2025 11:39 AM [facility] MCH 21.3(L) 27.0 - 32.0 pcg LAB HEMETOLOGY METHOD 04/29/2025 11:39 AM [facility] MCHC 29.3(L) 32.0 - 37.0 g/dL LAB HEMETOLOGY METHOD 04/29/2025 11:39 AM [facility] RDW 20.4(H) 11.0 - 15.0 % LAB HEMETOLOGY METHOD 04/29/2025 11:39 AM [facility] Platelets 789(H) 130 - 400 K/mcL LAB HEMETOLOGY METHOD 04/29/2025 11:39 AM EDT [facility] MPV 9.1 7.0 - 11.0 FL LAB HEMETOLOGY METHOD 04/29/2025 11:39 AM EDT [facility] NRBC 0.0 <1.0 % LAB HEMETOLOGY METHOD 04/29/2025 11:39 AM EDT [facility] NRBC Absolute 0.00 <0.10 K/mcL LAB HEMETOLOGY METHOD 04/29/2025 11:39 AM EDT [facility] Blood Venous blood specimen / Unknown Venipuncture / Unknown 04/29/2025 6:10 AM EDT 04/29/2025 10:23 AM EDT Annika Barrera MD LAB BLOOD ORDERABLES Fin al Result [facility] [address] [place] [address], documented in this encounter Visit Diagnoses Diagnosis Weakness Other malaise and fatigue documented in this encounter Additional Health Concerns Active Problems Noted Date Diagnosed Date Impaired Tissue 01/29/2025 Education needed on impact of smoking on wound 0 01/29/2025 Education needed related to ulceration/compromised skin integrity. 01/29/2025 Assessment Noted Time PHQ-9 Depression Total Score: 0 11/09/19 25 11:06 AM EST A fall risk assessment has been complete d for the patient 11/09/2024 11:01 AM EST documented as of this encounter Care Teams Call Center Professional Relationship Specialty Start Date End Date Ghulam Acevedo MD [address] [place] [phone] PCP - General Internal Medicine 05/27/21 documented as of this encounter
--- OUTSIDE RECORDS SUMMARY | 2025-05-31 11:23 | XMS_ITS | Clinical Summary ---
Author Organization [facility] Address [address] [facility] [place] [address] Care Team Providers Care Hat Forming Machine Feeder Name Role Phone Unavailable Primary Care Provider [...] Adults 18 yrs or above (or HM Modifier)([facility]) 1958 SDOH Screening Reminder: Annika hameed for all adults ([facility]) 1958 Tobacco Smoking Cessation: i n Adults excluding Women: Behavioral and Pharmacotherapy Interventions ([facility]) 1958 DTaP/Tdap/Td Vaccines ([facility]) (1 - Tdap) 1960 Pneumococcal Vaccination Scr eening: Patients 50+ yrs of age ([facility]) (1 of 1 - PCV) 1991 Zoster/Shingles Vaccine Seri es Screening: Adults aged 18+ yrs (or HM Modifiers)([facility]) (1 of 2) 1991 Osteoporosis Screening to Pr event Fractures: Women aged 65 years+ ([facility]) 2006 RSV Vaccines (1 - 1-dose 75+ series) 2016 Flu Vaccination: Ages 65+: Y early High Dose Recommended (or Modifier)([facility]) 04/12/2025 COVID-19 Vaccine Screening: Initial Series and Booster Status ([facility]) ( - season) 2025 [employer] Not on file Insurance ([place]) [address] [place], [place] [id number] [facility]
--- OUTSIDE RECORDS SUMMARY | 2025-05-31 11:23 | XMS_ITS | Clinical Summary ---
Author Organization [facility] Address [address] [address] Phone Care Team Providers Care Business Process Coordinator Name Role Phone Maine Vincent MD Primary [...] Done Comments DEPRESSION SCREENING 1953 OSTEOPOROSIS SCREENING INITIAL (ONE-TIME) 2006 PNEUMOCOCCAL VACCINES (50+ years) (2 of 2 - PCV) 08/04/2010 08/04/2009 RSV VACCINE (1 - 1-dose 75+ series) 2016 ZOSTER VACCINES (3 of 3) 09/30/2020 08/05/2020, 03/09/2009 INFLUENZA VACCINE (#1) 2025 0, 05/30/2019, 06/24/2018, Additional history exists COVID-19 VACCINE ( season) 2025 12/01/2020 Adult Td,Tdap Booster 05/30/2029 05/30/2019, 008 HEPATITIS A VACCINES Aged Out No long [...] this topic Medical Devices Implanted Type Area Mold Checker Device Identifier Shelf Expiration Date Model / Serial / Lot Knee Implant Component Size 7 Femoral Persona [employer] [employer] Cruciate Retaining Narrow Right - [id number] Implanted:Qty: 1 on 11/12/2019 by Alistair Gan MD at [facility] STANDARD Right: Knee [employer] / [employer] 09/11/2029 [id number] / / [id number] Cement Bone [place]os R High Viscosity 1x40g Cs/20ea - [id number] Implanted:Qty: 2 on 11/12/2019 by Alistair Gan MD at [facility] Right: Knee [employer] 10/12/2022 [id number] / / [id number] Knee Patella 32x8.5mm Persona All Polyethylene Cemented Conventional - [id number] Implanted:Qty: 1 on 11/12/2019 by Alitsair Gan MD at [facility] Right: Knee [employer] 10/12/2027 [id number] / / [id number] Persona Vivacet E Mc 10mm Right Articular Surface Implanted:Qty: 1 on 11/12/2019 by Alistair Gan MD at [facility] Right: Knee 07/12/2024 / / [id number] Knee Implant 5deg Component Tibial Persona Titanium Stemmed Cemented Rt Size D - [id number] Implanted:Qty: 1 on 11/12/2019 by Alistair Gan MD at [facility] Right: Knee [employer] 08/11/2029 [id number] / / [id number] Insurance [place] MEDIC[place] HMO BLUE [place] [address] [place] [address] MED[address] [address] [address] [address]IC[address] [facility] MEDICARE HMO BLUE REPLACEMENT [facility] MEDICARE HMO BLUE REPLACEMENT [facility] MEDICARE HMO BLUE REPLACEMENT [facility] MEDICARE HMO BLUE [facility]PL[facility] MEDICARE [place] [address] [place] [address] [facility] MEDICARE HMO BLUE REPLACEMENT Advance Directives For more information, please contact: [phone] (9AM - 5PM [place], Tuesday-Tuesday) Documents on File Type Date Recorded Patient Hand Roller Expl anation Healthcare Proxy 11/13/2019 * Full Code (Presumed) (Latest Code Status on File) Date Activated Date Inactivated Comments 11/12/2019 1:58 PM 11/15/2019 1:51 PM * Full Code (Presumed) Date Activated Date Inactivated Comments 11/12/2019 9:18 AM 11/12/2019 1:58 PM Care Teams Business Process Coordinator Relationship Specialty Start Date End Date Maine Vincent MD [address] [place] [address] PCP - General Internal Medicine 01/22/19 Additional Source Comments The information contained in this document represents components of the legal health record. It is not the complete legal health record.[facility]
--- OUTSIDE RECORDS SUMMARY | 2025-05-31 11:23 | XMS_ITS ---
Author Organization [facility] Address [address] [place] [id number] Phone Care Team Providers Care Graduate Engineer Name Role Phone Ghulam Acevedo MD Primary Care Provider [phone] Transitional Care Management Status:Ongoing (Active) Start date:05/09/2025 Enrollment date:05/09/2025 Enrollment reason:Identified using hospital discharge data Case Team Name Relationship Phone Meño Bautista LPN Care Manager(Responsible Staff) Continued Care and Services Coordination
--- OUTSIDE RECORDS SUMMARY | 2025-05-31 11:23 | XMS_ITS ---
Care Plan Created on: May 31, 2025 Israel Hintonelise Hughes : 1940 Sex: Female Author Organization [facility] Address [address] [place] [address] Phone Care Team Providers Care Hotel Recreational Facilities Manager Name Role Phone Ghulam Acevedo MD Primary Care Provider Active Problems Problem Noted Date Diagnosed Date Non-pressure chronic ulcer o f other part of left lower leg limited to breakdown of skin [place] [place], [facility] V28) 05/28/2025 Chronic venous hypertension (idiopathic) with ulcer of left lower extremity (CODE) ([facility] V24, [facility] V28) 02/19/2025 Contusion of left leg 01/29/2025 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 layer exposed ([facility] V24, [facility] V28) 01/29/2025 Asthma 12/04/2024 Esophageal dysphagia 11/15/2024 Lower GI bleed 11/15/2024 Myeloproliferative neoplasm ([facility] V24, [facility] V28) 07/19/2024 Invasive ductal carcinoma of left breast, stage 2 ([facility] V24, [facility] V28) 07/19/2024 Elevated lipids 08/09/2021 Essential hypertension, benign 08/09/2021 Mild intermittent asthma without complication Left inguinal hernia 08/09/2021 Polymyalgia rheumatica ([facility] V24) 08/09/2021 Osteopenia of multiple sites 08/09/2021 Osteoarthritis cervical spine 10/07/2020 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 She states that procedure helped her back pain significantly. She was referred for thoracic and lumbar degenerative changes, however her main complaint today that she wanted addressed was chronic dizziness and bilateral hand numbness. She states she is not having any issues with her back at this time. She also mentioned that she has numbness in the right distal leg from the knee down to the foot including all toes. She states the bilateral hand and right distal leg numbness has been going on for approximately 1 year. She states her daughter was diagnosed with MS and has similar symptoms. Apparently she is following with Dr. 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 She states she has chronic moderate neck pain, numbness from the distal forearm to the hands bilaterally, symptoms switch between hands, no specific precipitating or alleviating factors. She does not note symptoms specific to nighttime while sleeping. She states she was told she had carpal tunnel in the past, did not have much details regarding the work-up. She states her dizziness comes and goes, lasts 10 to 20 minutes daily, has tried PT last year without improvement, is on meclizine for vertigo. She mentioned more recently she has noticed abnormal movement of the left eye (states is not the eyelid twitching is the actual eye movements), saw her commercial stripper and he told her she had a normal eye exam per patient. She states the left eye gets blurry, denies seasonal allergies. Please see note for details on cervical and lumbar MRIs, patient has multilevel degenerative changes, no significant stenosis in the cervical spine, she does have central stenosis at L3-4 and L4-5 in the lumbar spine but does not have the typical lumbar stenosis symptoms, for example she is denying any issues with back pain and leg weakness/heaviness or pain with walking, does not need to stop and take breaks while walking. I reviewed previous brain MRIs, patient is asking that we look at the upcoming brain MRI from March, I asked her to call and let us know when it is done so we can review it. I reviewed cervical and lumbar MRIs in detail on the computer with the patient and her . I referred patient to neurology for further evaluation and upper extremity EMG/NCS study, rule out carpal tunnel syndrome. I will review her films and EMG results with Dr. Rand, see if he recommends any surgical intervention. I spent quite a bit of time with the patient and her , going over all her different issues, reviewing previous hospital notes, MD notes, films. All questions answered. Thyroid nodule 04/25/2020 Overview (12/04/2024): f/u 1 year Erosive osteoarthritis of both hands 03/29/2020 Overview (12/04/2024): X-ray 03/31-normal inflammatory markers and uric acid History of total knee arthroplasty, right 2019 Overview (12/04/2024): 10/2019 Neuropathy 08/01/2018 Overview (12/04/2024): 07/2018 EMG- mod severe right peroneal & right distal tibial Prediabetes 03/21/2018 Lumbar stenosis with neurogenic claudication Overview (12/04/2024): Last Assessment & Plan: Patient follows up in the office s/p T12 kyphoplasty to discuss her low back pain, generalized tingling in both legs with sitting, right >left leg heaviness with walking. She has had multiple falls in the last couple months, is not sure if this is contributed to her worsening symptoms. The majority of her pain is across the low back, right SI joint, but she also has some pain between the shoulder blades, bilateral shoulders. If she has to walk any significant distance she will either hold onto a carriage at the grocery store or use a walker. Without it she states she feels like she might fall, she gets heaviness from the right knee down to the foot, left calf. She had a cane with her on today's visit. She states the shoulder pain wakes her up at night, is not sleeping well. She has an appointment with Dr. De Leon 08/16/2022 for injections in the shoulders. On one of her falls she hurt her knees, is s/p right knee replacement, states they did x-rays and told her there was no fractures or issues with the hardware. The right knee pain has been improving with time. Patient had lumbar MRI September 2021 that showed L4-5 stenosis, multilevel degenerative changes. We will check lumbar spine flexion-extension x-rays to rule out any acute fractures after her falls, instability. I will review her films with Dr. Rand, see if he recommends any surgical intervention for her low back pain and worsening leg symptoms with walking. Patient mention she just went to see Dr. Haque at [facility] neurosurgery, she told her she could have a right SI joint injection with Dr. De Leon, did not recommend any surgery. I will try to get a copy of their office notes. Additional Health Concerns Active Problems Noted Date Diagnosed Date Impaired Tissue 01/29/2025 Education needed on impact of smoking on wound 0 01/29/2025 Education needed related to ulceration/compromised skin integrity. 01/29/2025 Goals Goal Patient Goal Type Associated Problems [...] by week 4 Care Plan Impaired Tissue No Calista Mcmahan [...] omised skin integrity. No Calista Mcmahan RN Interventions Care Plan Interventions Intervention Entry Date Outcome Close TCM 05/10/2025 Provide caregiver with wound care procedure information 01/29/2025 Educate caregiver on proper wound care procedures 01/29/2025 Give provider list of wound care supplies 01/29/2025 Refill wound care supplies 01/29/2025 Send Wound Care Supplies 01/29/2025 Give provider list of wound care supplies 01/29/2025 Refill wound care supplies 01/29/2025 Send Wound Care Supplies 01/29/2025 Provide caregiver with wound care procedure information 01/29/2025 Educate caregiver on proper wound care procedures 01/29/2025 Document patient eligibility for HBO 01/29/2025 Assess patient for HBO treatment 01/29/2025 Record wound depth 01/29/2025 Record total wound area 01/29/2025 Measure wound progress 01/29/2025 Create an action plan identifying patient strengths and supports 01/29/2025 Establish quit date with patient 01/29/2025 Discuss prior cessation attempts 01/29/2025 Discuss preferred method of cessation and plan 01/29/2025 Discuss barriers to smoking cessation 01/29/2025 Discuss smoking status with patient 01/29/2025 Create an action plan identifying patient strengths and supports 01/29/2025 Establish quit date with patient 01/29/2025 Discuss prior cessation attempts 01/29/2025 Discuss preferred method of cessation and plan 01/29/2025 Discuss barriers to smoking cessation 01/29/2025 Discuss smoking status with patient 01/29/2025 Provide caregiver with wound care procedure information 01/29/2025 Educate caregiver on proper wound care procedures 01/29/2025 Document patient eligibility for HBO 01/29/2025 Assess patient for HBO treatment 01/29/2025 Record wound depth 01/29/2025 Record total wound area 01/29/2025 Measure wound progress 01/29/2025 Provide caregiver with wound care procedure information 01/29/2025 Educate caregiver on proper wound care procedures 01/29/2025 Document patient eligibility for HBO 01/29/2025 Assess patient for HBO treatment 01/29/2025 Record wound depth 01/29/2025 Record total wound area 01/29/2025 Measure wound progress 01/29/2025 Provide caregiver with wound care procedure information 01/29/2025 Educate caregiver on proper wound care procedures 01/29/2025 Document patient eligibility for HBO 01/29/2025 Assess patient for HBO treatment 01/29/2025 Record wound depth 01/29/2025 Record total wound area 01/29/2025 Measure wound progress 01/29/2025 Provide caregiver with wound care procedure information 01/29/2025 Educate caregiver on proper wound care procedures 01/29/2025 Give provider list of wound care supplies 01/29/2025 Refill wound care supplies 01/29/2025 Send Wound Care Supplies 01/29/2025 Give provider list of wound care supplies 01/29/2025 Refill wound care supplies 01/29/2025 Send Wound Care Supplies 01/29/2025 Provide caregiver with wound care procedure information 01/29/2025 Educate caregiver on proper wound care procedures 01/29/2025 Record wound depth 01/29/2025 Record total wound area 01/29/2025 Measure wound progress 01/29/2025 Related Goals and Interventions Goal Associated Intervent ions Decrease Wound Volume by X% by date (in notes) Give provider list of wound care supplie s; Refill wound care supplies; Send Wound Care Supplies; Provide caregiver with wound care procedure information; Educate caregiver on proper wound care procedures; Record wound depth; Record total wound area; Measure wound progress Patient and Caregiver Unders tand Wound Care Education Provide caregiver with wound care proced ure information; Educate caregiver on proper wound care procedures; Give provider list of wound care supplies; Refill wound care supplies; Send Wound Care Supplies Wound volume breakdown reduc ed by X% by week 4 Provide caregiver with wound care proced ure information; Educate caregiver on proper wound care procedures; Document patient eligibility for HBO; Assess patient for HBO treatment; Record wound depth; Record total wound area; Measure wound progress Wound volume breakdown reduc ed by X% by week 8 Provide caregiver with wound care proced ure information; Educate caregiver on proper wound care procedures; Document patient eligibility for HBO; Assess patient for HBO treatment; Record wound depth; Record total wound area; Measure wound progress Wound volume breakdown reduc ed by X% by week 12 Provide caregiver with wound care proced ure information; Educate caregiver on proper wound care procedures; Document patient eligibility for HBO; Assess patient for HBO treatment; Record wound depth; Record total wound area; Measure wound progress Quit using tobacco (cigarett es, smokeless, etc) Create an action plan identifying patialejandra t strengths and supports; Establish quit date with patient; Discuss prior cessation attempts; Discuss preferred method of cessation and plan; Discuss barriers to smoking cessation; Discuss smoking status with patient Reduce tobacco use (cigarett es, smokeless, etc) Create an action plan identifying patien t strengths and supports; Establish quit date with patient; Discuss prior cessation attempts; Discuss preferred method of cessation and plan; Discuss barriers to smoking cessation; Discuss smoking status with patient Decrease Wound Volume by X% by date (in notes) Give provider list of wound care supplie s; Refill wound care supplies; Send Wound Care Supplies; Provide caregiver with wound care procedure information; Educate caregiver on proper wound care procedures; Document patient eligibility for HBO; Assess patient for HBO treatment; Record wound depth; Record total wound area; Measure wound progress Patient and Caregiver Unders tand Wound Care Education Provide caregiver with wound care proced ure information; Educate caregiver on proper wound care procedures; Give provider list of wound care supplies; Refill wound care supplies; Send Wound Care Supplies
--- OUTSIDE RECORDS SUMMARY | 2025-05-31 11:24 | XMS_ITS | Clinical Summary ---
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
--- OUTSIDE RECORDS SUMMARY | 2025-05-31 11:24 | XMS_ITS | Encounter Summary ---
Author Organization [facility] Address [address] [place] [address] Phone Care Team Providers Care Mental Health Director Name Role Phone Maine Vincent MD Primary Care Pro vider Encounter Details Date Type Department Care Team (Late st Contact Info) Description 11/02/2019 Prep for Surgery Alistair Gan MD [address] [place] [address] Order Mode, Parking Ramp Attendant [address] [place] [address] Social History Tobacco Use Types Packs/Day Years [...] on filedocumented in this encounter Care Teams Mental Health Director Relationship Specialty Start Date End Date Maine Vincent MD [address] [facility] [place] [address] PCP - General Internal Medicine 01/22/19 documented as of this encounter Additional Source Comments The information contained in this document represents components of the legal health record. It is not the complete legal health record.[facility]
--- OUTSIDE RECORDS SUMMARY | 2025-05-31 11:24 | XMS_ITS | Clinical Summary ---
Author Organization [facility] Address [address] [place] [address] Phone Care Team Providers Care Medical Facilities Section Director Name Role Phone Ghulam Acevedo MD Primary Care Provider [phone] Allergies Active Allergy Reactions Criticality Noted Date Comments Adhesive Tape-Silicones 11/01/2024 Amoxicillin 08/03/2021 Iodinated Contrast Media 08/03/2021 Latex 10/09/2024 Naproxen 08/03/2021 Other 10/10/2017 Tape: Skin irritation with blood Sulfamethoxazole-Trimethopr im 10/09/2024 Sulfur 08/03/2021 Medications aspirin 81 mg EC tablet Take 1 tablet (81 mg total) by mouth daily. Active calcium carbonate (CALCIUM 500 ORAL) Take by mouth. Activ e cholecalciferol (VITAMIN D-3) 25 mcg (1,000 unit) tablet Take 1 tablet (1,000 Units total) by mouth daily. Active OMEGA-3 FATTY ACIDS ORAL Take by mouth. Acti ve cyanocobalamin (VITAMIN B-12) 500 mcg tablet Activ e calcium carb,gluc-mag gluc,ox (Calcium Magnesium) 500 mg calcium- 250 mg tablet Take 3 tablets by mouth 1 (one) time each day. Active ciprofloxacin (CILOXAN) 0.3 % ophthalmic solution 04/07/20 24 Active ergocalciferol (VITAMIN D-2) 1,250 mcg (50,000 unit) capsule 09/21/19 25 Active bisacodyL (DULCOLAX) 5 mg EC tablet Take 2 tablets by mouth right before beginning bowel prep. See instructions provided by the office 2 tablet 12/29/19 Active Additional Information Patient not taking.Reported on 05/23/2025 polyethylene glycol (Golytely) 236-22.74-6.74 -5.86 gram solution Take 4L by mouth once for one dose. May substitue any PEG. Starting at 6PM the night before your procedure drink 1 8oz glasses at your own pace until you complete half of the gallon. Finish 2nd half of the gallon 5 hours before your procedure. 4000 mL 12/29/19 Active Additional Information Patient not taking.Reported on 05/23/2025 doxycycline (VIBRAMYCIN) 100 mg capsule Take 1 capsule (100 mg total) by mouth 2 (two) times a day. 7 days 12/29/19 Active Vitamin C 500 mg tablet Take 1 tablet (500 mg total) by mouth 2 (two) times a day. 12/29/19 Active collagenase (SANTYL) 250 unit/gram ointment Apply topically 1 (one) time each day. 30 g 2 01/04/20 Active Additional Information Patient not taking.Reported on 05/23/2025 gabapentin (NEURONTIN) 100 mg capsule Take 1 capsule (100 mg total) by mouth 2 (two) times a day. 60 capsule 01/15/20 025 Active Additional Information Patient not taking.Reported on 05/23/2025 pregabalin (LYRICA) 75 mg capsuleIndicati ons:Acute midline low back pain with left-sided sciatica,Compre ssion fracture of lumbar vertebra with routine healing, unspecified lumbar vertebral level, subsequent encounter Take 1 capsule (75 mg total) by mouth at bedtime. Max Daily Amount: 75 mg 30 capsule 01/25/20 25 026 Active Additional Information Patient not taking.Reported on 05/23/2025 traMADoL (ULTRAM) 50 mg tablet Take 1 tablet (50 mg total) by mouth every 6 (six) hours if needed for moderate pain. Max Daily Amount: 200 mg 40 tablet 02/08/20 25 Active Additional Information Patient not taking.Reported on 05/23/2025 clobetasoL (TEMOVATE) 0.05 % ointment Apply a rice-grain amount of ointment in a thin film to affected area on the vulva two times a week. 15 g 1 06/02/20 25 Active Additional Information Patient not taking.Reported on 05/23/2025 amoxicillin (AMOXIL) 500 mg capsule 1 capsule (500 mg total) every 12 (twelve) hours. Started on March 20 for 2 weeks take until finished wound left leg Active lisinopril (PRINIVIL,ZESTR IL) 40 mg tablet Take 1 tablet (40 mg total) by mouth 1 (one) time each day. 90 each 05/21/20 Active acetaminophen (TYLENOL) 500 mg tablet Take 1 tablet (500 mg total) by mouth every 6 (six) hours if needed for mild pain. Active lisinopril (PRINIVIL,ZESTR IL) 40 mg tablet Take 1 tablet (40 mg total) by mouth 1 (one) time each day. 90 each 10/12/19 025 Discontin ued(Reord er) Active Problems Problem Noted Date Diagnosed Date Non-pressure chronic ulcer o f other part of left lower leg limited to breakdown of skin ([facility] V24, [facility] V28) 05/28/2025 Chronic venous hypertension (idiopathic) with ulcer of left lower extremity (CODE) ([facility] V24, [facility] V28) 02/19/2025 Contusion of left leg 01/29/2025 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 layer exposed ([facility] V24, [facility] V28) 01/29/2025 Asthma 12/04/2024 Esophageal dysphagia 11/15/2024 Lower GI bleed 11/15/2024 Myeloproliferative neoplasm ([facility] V24, [facility]/ C V28) 07/19/2024 Invasive ductal carcinoma of left breast, stage 2 ([facility] V24, [facility] V28) 07/19/2024 Elevated lipids 08/09/2021 Essential hypertension, benign 08/09/2021 Mild intermittent asthma without complication Left inguinal hernia 08/09/2021 Polymyalgia rheumatica ([facility] V24) 08/09/2021 Osteopenia of multiple sites 08/09/2021 [...] following with Dr. 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 Haque at [facility] neurosurgery, she told her she could have a right SI joint injection with Dr. De Leon, did not recommend any surgery. I will try to get a copy of their office notes. Encounters Date Type Department Care Team Description 05/28/2025 11:00 AM EDT Office Visit [facility] [address] [place] [phone] Romeo Jones PA Chronic venous hypertension (idiopathic) with ulcer of left lower extremity (CODE) ([facility] V24, [facility] V28) (Primary Dx); Non-pressure chronic ulcer of other part of left lower leg with fat layer exposed (CMS/HCC V24, CMS/HCC V28); Non-pressure chronic ulcer of other part of left lower leg limited to breakdown of skin (CMS/HCC V24, CMS/HCC V28) 05/23/2025 11:30 AM EDT Office Visit Adult Medicine [address] [phone] Ghulam Acevedo MD CHB (complete heart block) (CMS/[facility] V24, CMS/HCC V28) (Primary Dx); S/P placement of cardiac pacemaker; Pyoderma gangrenosum (CMS/HCC V28); Hyperkalemia; Non-pressure chronic ulcer of other part of left lower leg with fat layer exposed (CMS/HCC V24, CMS/HCC V28); Myeloproliferative neoplasm (CMS/HCC V24, CMS/HCC V28); Essential hypertension, benign 05/21/2025 11:00 AM EDT Office Visit [facility] [address] [place] [address] [phone] Romeo Jones PA Chronic venous hypertension (idiopathic) with ulcer of left lower extremity (CODE) ([facility]/HCC V24, CMS/[facility] V28) (Primary Dx); Non-pressure chronic ulcer of other part of left lower leg with fat layer exposed (CMS/[facility] V24, [facility] V28) 05/16/2025 Telephone [facility] [address] [facility] [address] [place] [phone] Azucena Soriano MD 05/14/[address] [phone] Ghulam Acevedo MD 05/09/2025 Lab Requisition [facility] [address] [place] [phone] Annika Barrera MD Dysuria 05/06/[address] [phone] Ghulam Acevedo MD 04/29/2025 Lab Requisition [facility] [address] [place] [phone] Annika Barrera MD Weakness 04/19/2025 [facility] [address] [place] [phone] Daphne Sotelo RN 04/18/2025 [facility] [address] [place] [phone] Daphne Sotelo, RN 04/11/[address] [phone] Ghulam Acevedo MD 04/09/2025 1:00 PM EDT Office Visit [facility] [address] [place] [address] [phone] Gerri Cardona MD Chronic venous hypertension (idiopathic) with ulcer of left lower extremity (CODE) (CMS/[facility] V24, CMS/[facility] V28) (Primary Dx); Non-pressure chronic ulcer of other part of left lower leg with fat layer exposed ([facility] V24, [facility] V28) 04/05/2025 Telephone [facility] [address] [place] [phone] Tracee Mukherjee RN 04/04/2025 Telephone [facility] [address] [place] [phone] Tracee Mukherjee RN 04/03/2025 Telephone [facility] [address] [place] [phone] Elo Onofre MD 04/02/2025 9:30 AM EDT Office Visit [facility] [address] [place] [phone] Romeo Jones PA Chronic venous hypertension (idiopathic) with ulcer of left lower extremity (CODE) ([facility], [facility] V28) (Primary Dx); Non-pressure chronic ulcer of other part of left lower leg with fat layer exposed ([facility] V24, [facility] V28) 04/01/2025 1:15 PM EDT Office Visit Adult Medicine [address] [phone] Angelita Camacho PA Hypertension, unspecified type (Primary Dx); Left hand pain; Osteopenia of multiple sites 04/01/2025 Telephone [facility] [address] [place] [phone] Daphne Sotelo RN 03/27/2025 Telephone Adult Medicine [address] [phone] Ghulam Acevedo MD 03/26/2025 11:15 AM EDT Office Visit [facility] [address] [place] [address] [phone] Romeo Jones PA Chronic venous hypertension (idiopathic) with ulcer of left lower extremity (CODE) ([facility] V24, [facility] V28) (Primary Dx); Non-pressure chronic ulcer of other part of left lower leg with fat layer exposed (CMS/HCC V24, CMS/HCC V28) 03/26/2025 Billing Patient Not Present Adult Medicine [address] [phone] Ghulam Acevedo MD 03/25/2025 Telephone Adult Medicine [address] [phone] Kiara Franks MA 03/19/2025 3:00 PM EDT Office Visit [facility] [address] [place] [phone] Romeo Jones PA Chronic venous hypertension (idiopathic) with ulcer of left lower extremity (CODE) (CMS/HCC V24, CMS/HCC V28) (Primary Dx); Non-pressure chronic ulcer of other part of left lower leg with fat layer exposed (CMS/HCC V24, CMS/HCC V28) 03/12/2025 10:30 AM EDT Office Visit [facility] [address] [place] [phone] Romeo Jones PA Chronic venous hypertension (idiopathic) with ulcer of left lower extremity (CODE) (CMS/[facility] V24, CMS/HCC V28) (Primary Dx); Non-pressure chronic ulcer of other part of left lower leg with fat layer exposed (CMS/HCC V24, CMS/HCC V28) 03/11/2025 Telephone Adult Medicine [address] [phone] Ghulam Acevedo MD 03/11/2025 Telephone Adult Medicine [address] [phone] Ghulam Acevedo MD 03/06/2025 Telephone Urogynecology - [address] [place] [phone] Yamilex Cortes MD 03/06/2025 Telephone [facility] [address] [place] [phone] Daphne Sotelo RN 03/05/2025 11:00 AM EDT Office Visit [facility] [address] [place] [phone] Romeo Jones PA Chronic venous hypertension (idiopathic) with ulcer of left lower extremity (CODE) ([facility]24, [facility] V28) (Primary Dx); Non-pressure chronic ulcer of other part of left lower leg with fat layer exposed ([facility] V24, [facility] V28) 03/05/2025 Telephone Adult Medicine [address] [phone] Kiara Franks [place] 03/05/2025 Telephone Adult Medicine [address] [phone] Kiara Franks [place] 03/05/2025 Telephone Adult Medicine [address] [phone] Kiara Franks [place] 03/05/2025 Telephone Adult Medicine [address] [phone] Ghulam Acevedo MD from Last 3 Months Immunizations Name Administration Dates Next Due Influenza trivalent, 0.5mL ( Fluad) 65yo and older 05/30/2019 Influenza trivalent, 0.5mL ( Fluzone High-dose) 65yo and older 05/30/2024,07/13/2021,07/02/2020,06/24,10/25/2017,09/01/2016 Influenza trivalent, with pr eservative (Fluzone; Afluria) 6mo and older 07/07/2011,06/29/2010 Pfizer SARS-CoV-2 COVID-19, mRNA, LNP-S, preservative free 12/22/2020,12/01/2020 Pneumococcal polysaccharide 23 valent (Pneumovax 23) 2yo and older 08/04/2009 Td Tetanus diptheria (Tdvax) 7yo and older 07/22/2008 Tdap Tetanus diptheria acell ular pertussis (Boostrix; Adacel) 7yo and older 05/30/2019 Zoster Live 11/20/2009 Zoster recombinant (Shingrix ) 19yo and older 05/11/2021,08/05/2020 Surgical History Surgery Date Site/Laterality Comments HYSTERECTOMY HERNIA REPAIR TONSILLECTOMY APPENDECTOMY COLONOSCOPY UPPER GASTROINTESTINAL ENDOSCOPY BREAST LUMPECTOMY 2007 TOTAL KNEE ARTHROPLASTY 11/12/2019 Right OTHER SURGICAL HISTORY 10/08/2021 T12 kyphoplasty in interventional radiology, Dr. Walter Medical History Medical History Date Comments Asthma Essential hypertension Arthritis involving multiple sites 01/31/2018 Hands, hips, spine, knee [place] cyst, right 02/01/2018 History of breast cancer Lumpect jf, radiation Lateral meniscus tear 02/01/2018 : MRI 02/24 Lumbar disc herniation 02/01/2018 MRI Osteopenia 01/31/2018 Bone Density 12/11 11/25 Cataract 03/27/2018 Neuropathy 08/01/201807/2018 EMG- mod severe right peroneal & right distal tibial Prediabetes 03/21/2018 Diverticulosis 02/21/2018 DX:Diverticulosi s; COMMENT: Mild diverticulitis on CT 02/13/18 with GI Left inguinal hernia Thyroid nodule 04/25/2020 f/u 1 year Osteoarthritis cervical spine 10/07/2020 DX :Osteoarthritis cervical spine Family History Medical History Relation Name Comments Arthritis Brother Multiple sclerosis Daughter Breast cancer Father Diabetes Father Prostate Cancer Hypertension Mother breast cancer Arthritis Son 1 Other: psoriatic arthritis Son 2 Relation Name Status Comments Brother Alive Daughter Alive Father Mother Sister Alive Son 1 Son 2 Alive Social History Tobacco Use Types Packs/Day Years Used Date Smoking Tobacco: Never Smokeless Tobacco: Never Tobacco Cessation:Counseling Given: Not Answered Alcohol Use Standard Drinks/Week Comments No 0 [...] on file Sexual Orientation Not on file Obstetrics History Last Filed Vital Signs Vital Sign Reading Time Taken Comments Blood Pressure 152/59 05/28/2025 11:03 AM EDT Pulse 64 05/28/2025 11:03 AM EDT Temperature 36 C (96.8 F) 05/28/2025 11:03 AM EDT Respiratory Rate 17 05/28/2025 11:03 AM EDT Oxygen Saturation 100% 05/28/2025 11:03 AM EDT Inhaled Oxygen Concentration - - Weight 54.4 kg (120 lb) 05/23/2025 11:09 AM EDT Height 157.5 cm (5' 2 ) 05/23/2025 11:09 AM EDT Body Mass Index 21.95 05/23/2025 11:09 AM EDT Plan of Treatment Upcoming Encounters Date Type Department Care Team (Late st Contact Info) Description 07/22/2025 11:00 AM EST Office Visit [facility] [address] [place] [phone] Elo Onofre MD [address] [place] [address] 09/25/2025 11:00 AM EST Office Visit Adult Medicine [facility] [address] [place] [phone] Ghulam Acevedo MD [address] [place] [phone] Health Maintenance Due Date Last Done Comments Pneumococcal Vaccine: 50+ Years (2 of 2 - PCV) 08/04/2010 08/04/2009 RSV Immunization Adult Patients (1 - 1-dose 75+ series) 2016 COVID-19 Vaccine (3 - Pfizer risk series) 01/19/2021 12/22/2020, 12/01/2020 Influenza Vaccine (#1) 2025 , 07/13/2021, 07/02/2020, Additional history exists Medicare Annual Wellness Visit 11/09/2025 11/09/2024 Social Influencers of Health Screening 01/11/2026 01/11/2025 Falls Risk Assessment 01/29/2026 01/29/2025, 025 Hypertension/CHF/CAD Annual BMP Blood Test 04/29/2026 04/29/2025, 11/14/2024, 10/12/2024, Additional history exists DTaP,Tdap,and Td Vaccines (3 - Td or Tdap) 05/30/2029 05/30/2019, 07/22/2008 Cholesterol Screening (Lipid Panel) 10/12/2029 10/12/2024, 02/17/2024 Osteoporosis Screening (Bone Density Screening) 02/03/2032 02/02/2022, 11/04/2020 Zoster Vaccines Completed 05/11/2021, 07/14, 11/20/2009 Depression Screening Completed 11/09/2024 HIB Vaccines Aged Out No longer eligi ble based on patient's age to complete this topic HPV Vaccines Aged Out No longer eligi ble based on patient's age to complete this topic Hepatitis A Vaccines Aged Out No long er eligible based on patient's age to complete this topic Hepatitis B Vaccines Aged Out No long er eligible based on patient's age to complete this topic IPV Vaccines Aged Out No longer eligi ble based on patient's age to complete this topic MMR Vaccines Aged Out No longer eligi ble based on patient's age to complete this topic Meningococcal ACWY Vaccine Aged Out N o longer eligible based on patient's age to complete this topic Meningococcal B Vaccine Aged Out No l onger eligible based on patient's age to complete this topic RSV Immunization Patients Under 20 months Aged Out No longer eligible based on patient's age to complete this topic Varicella Vaccines Aged Out No longer eligible based on patient's age to complete this topic Goals Goal Patient Goal Type Associated Problems [...] omised skin integrity. No Calista Mcmahan RN Procedures Procedure Name Priority Date/Time Associated Diagnosis Comments DEBRIDEMENT Routine 05/28/2025 11:00 AM EDT Chronic venous hypertension (idiopathic) with ulcer of left lower extremity (CODE) (CMS/HCC V24, CMS/HCC V28) Non-pressure chronic ulcer of other part of left lower leg with fat layer exposed (CMS/HCC V24, CMS/HCC V28) DEBRIDEMENT Routine 05/21/2025 11:00 AM EDT Chronic venous hypertension (idiopathic) with ulcer of left lower extremity (CODE) (CMS/HCC V24, CMS/HCC V28) Non-pressure chronic ulcer of other part of left lower leg with fat layer exposed (CMS/HCC V24, CMS/HCC V28) URINALYSIS WITH REFLEX MICROSCOPIC Routine 05/08/2025 10:00 PM EDT Dysuria URINALYSIS WITH REFLEX MICROSCOPIC Routine 05/08/2025 10:00 PM EDT Dysuria CULTURE URINE Routine 05/08/2025 10:00 PM EDT Dysuria VITAMIN B12 AND FOLATE Routine 04/29/2025 6:10 AM EDT Weakness THYROID STIMULATING HORMONE WITH REFLEX TO FREE T4 AND FREE T3 Routine 04/29/2025 6:10 AM EDT Weakness COMPREHENSIVE METABOLIC PANEL Routine 04/29/2025 6:10 AM EDT Weakness COMPLETE BLOOD COUNT Routine 04/29/2025 6:10 AM EDT Weakness DEBRIDEMENT Routine 04/02/2025 9:30 AM EDT Chronic venous hypertension (idiopathic) with ulcer of left lower extremity (CODE) (CMS/HCC V24, CMS/HCC V28) Non-pressure chronic ulcer of other part of left lower leg with fat layer exposed (CMS/HCC V24, CMS/HCC V28) DEBRIDEMENT Routine 04/02/2025 9:30 AM EDT Chronic venous hypertension (idiopathic) with ulcer of left lower extremity (CODE) (CMS/HCC V24, CMS/HCC V28) Non-pressure chronic ulcer of other part of left lower leg with fat layer exposed (CMS/HCC V24, CMS/HCC V28) DEBRIDEMENT Routine 03/26/2025 11:15 AM EDT Chronic venous hypertension (idiopathic) with ulcer of left lower extremity (CODE) (CMS/HCC V24, CMS/HCC V28) Non-pressure chronic ulcer of other part of left lower leg with fat layer exposed (CMS/HCC V24, CMS/HCC V28) DEBRIDEMENT Routine 03/26/2025 11:15 AM EDT Chronic venous hypertension (idiopathic) with ulcer of left lower extremity (CODE) (CMS/HCC V24, CMS/HCC V28) Non-pressure chronic ulcer of other part of left lower leg with fat layer exposed (CMS/HCC V24, CMS/HCC V28) DEBRIDEMENT Routine 03/19/2025 3:00 PM EDT Chronic venous hypertension (idiopathic) with ulcer of left lower extremity (CODE) (CMS/HCC V24, CMS/HCC V28) Non-pressure chronic ulcer of other part of left lower leg with fat layer exposed (CMS/HCC V24, CMS/HCC V28) DEBRIDEMENT Routine 03/19/2025 3:00 PM EDT Chronic venous hypertension (idiopathic) with ulcer of left lower extremity (CODE) (CMS/HCC V24, CMS/HCC V28) Non-pressure chronic ulcer of other part of left lower leg with fat layer exposed (CMS/HCC V24, CMS/HCC V28) DEBRIDEMENT Routine 03/12/2025 10:30 AM EDT Chronic venous hypertension (idiopathic) with ulcer of left lower extremity (CODE) (CMS/HCC V24, CMS/HCC V28) Non-pressure chronic ulcer of other part of left lower leg with fat layer exposed (CMS/HCC V24, CMS/HCC V28) DEBRIDEMENT Routine 03/12/2025 10:30 AM EDT Chronic venous hypertension (idiopathic) with ulcer of left lower extremity (CODE) (CMS/HCC V24, CMS/HCC V28) Non-pressure chronic ulcer of other part of left lower leg with fat layer exposed (CMS/HCC V24, CMS/HCC V28) CULTURE URINE Routine 03/05/2025 2:46 PM EDT Urinary tract infection without hematuria, site unspecified DEBRIDEMENT Routine 03/05/2025 11:00 AM EDT Chronic venous hypertension (idiopathic) with ulcer of left lower extremity (CODE) (CMS/HCC V24, CMS/HCC V28) Non-pressure chronic ulcer of other part of left lower leg with fat layer exposed (CMS/HCC V24, CMS/HCC V28) DEBRIDEMENT Routine 03/05/2025 11:00 AM EDT Chronic venous hypertension (idiopathic) with ulcer of left lower extremity (CODE) (CMS/HCC V24, CMS/HCC V28) Non-pressure chronic ulcer of other part of left lower leg with fat layer exposed (CMS/HCC V24, CMS/HCC V28) CULTURE URINE Routine 02/28/2025 1:50 PM EDT Urinary tract infection without hematuria, site unspecified LIPID PANEL WITH REFLEX TO DIRECT LDL Routine 10/12/2024 12:52 PM EST Elevated lipids DXA BONE DENSITY STUDY 1+ SITS AXIAL SKEL Routine 02/02/2022 1:52 PM EDT 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 Encounter for screening for osteoporosis from Last 3 Months or Most Recently Relevant to Health Maintenance Results * Debridement Venous Ulcer (Cluster ) Left;Medial;Lower Leg (05/21/2025 11:00 AM EDT) Bandar Schmidt MD - 05/21/2025 11:00 AM EDT GERARD Ordonez 05/21/2025 11:49 AM Debridement Venous Ulcer (Cluster ) Left;Medial;Lower Leg Performed by: GERARD Ordonez Authorized by: GERARD Ordonez Associated wounds: Wound Venous Ulcer 01/29/25 Leg Left;Medial;Lower Consent: Consent obtained: Verbal Consent given by: Patient Risks discussed: Yes Time out: Immediately prior to the procedure a time out was called Debridement Details: Performed by: GERARD Type: surgical Level: subcutaneous tissue Pain control: Lidocaine 4% Severity of Tissue Pre Debridement: Fat layer exposed Severity of Tissue Post Debridement: Fat layer exposed Time taken: 05/21/2025 11:16 AM Length (cm): 7.4 (Cluster of 4) Width (cm): 8.3 Depth (cm): 0.1 Area (cm^2): 61.42 Time taken: 05/21/2025 11:17 AM Length (cm): 7.4 Width (cm): 8.3 Depth (cm): 0.1 Percent Debrided (%): 50 Surface Area (cm^2): 61.42 Area Debrided (cm^2): 30.71 Volume (cm^3): 6.14 Tissue and other material debrided: dermis, epidermis and subcutaneous tissue Devitalized tissue debrided: biofilm, exudate, fibrin and slough Instrument: Curette Amount of bleeding: none Hemostasis obtained with: Not applicable Procedural pain: 0 Post-procedural pain: 0 Response to treatment: Procedure was tolerated well Romeo GEE IN CLINIC/BEDSIDE ORDERABLE S Final Result * Urinalysis with reflex microscopic (05/08/2025 10:00 PM EDT) Specific [place] Urine 1.024 1.003 - 1.030 LAB URINALYSIS - AUTOMATED METHOD 05/09/2025 12:19 PM [facility] pH, Urine 6.0 5.0 - 8.0 pH LAB URINALYSIS - AUTOMATED METHOD 05/09/2025 12:19 PM [facility] Leukocytes, Urine Negative Negative LAB URINALYSIS - AUTOMATED METHOD 05/09/2025 12:19 PM [facility] Nitrite, Urine Negative Negative LAB URINALYSIS - AUTOMATED METHOD 05/09/2025 12:19 PM [facility] Protein, Urine Negative <=Trace mg/dL LAB URINALYSIS - AUTOMATED METHOD 05/09/2025 12:19 PM [facility] Glucose, Urine Negative Negative mg/dL LAB URINALYSIS - AUTOMATED METHOD 05/09/2025 12:19 PM [facility] Ketones, Urine Negative Negative mg/dL LAB URINALYSIS - AUTOMATED METHOD 05/09/2025 12:19 PM EDT [facility] Urobilinogen, Urine 0.2 0.2 - 1.0 mg/dL LAB URINALYSIS - AUTOMATED METHOD 05/09/2025 12:19 PM EDT [facility] Bilirubin, Urine Negative Negative LAB URINALYSIS - AUTOMATED METHOD 05/09/2025 12:19 PM EDT [facility] Blood, Urine Negative Negative LAB URINALYSIS - AUTOMATED METHOD 05/09/2025 12:19 PM EDT [facility] Urine Urine specimen obtained by clean catch procedure / Unknown 05/08/2025 10:00 PM EDT 05/09/2025 12:07 PM EDT Annika Barrera MD LAB URINE ORDERABLES Fin al Result Performing Organization Address [facility] [address]/ZIP Co de Phone Number [facility] [address] [place] [address], [place] [phone] * Culture urine (05/08/2025 10:00 PM EDT) Only the most recent of3 resultswithin the time period is included. Pathologist [facility] [place] Culture, Urine No growth 05/10/2025 9:17 AM EDT [facility] Urine Urine specimen obtained by clean catch procedure / Unknown 05/08/2025 10:00 PM EDT 05/09/2025 12:07 PM EDT Annika Barrera MD LAB MICROBIOLOGY - GENER AL ORDERABLES Final Result Performing Organization Address [facility] [address]/ZIP Co de Phone Number [facility] [address] [place] [id number], [place] [phone] * Thyroid stimulating hormone with reflex to free t4 and free t3 (04/29/2025 6:10 AM EDT) TSH 2.11 0.40 - 4.00 mcIU/mL LAB CHEMISTRY METHOD 04/29/2025 1:16 PM EDT [facility] Blood Venous blood specimen / Unknown Venipuncture / Unknown 04/29/2025 6:10 AM EDT 04/29/2025 10:23 AM EDT Annika Barrera MD LAB BLOOD ORDERABLES Fin al Result Performing Organization Address [facility] de Phone Number [facility] [address] [place] [address], [place] [phone] * (ABNORMAL) Vitamin B12 and folate (04/29/2025 6:10 AM EDT) [facility] Vitamin B-12 >2,000(H) 250 - 900 pcg/mL LAB CHEMISTRY METHOD 04/29/2025 12:49 PM EDT [facility] Folate 7.1 2.8 - 17.0 ng/ml LAB CHEMISTRY METHOD 04/29/2025 12:49 PM EDT [facility] Blood Venous blood specimen / Unknown Venipuncture / Unknown 04/29/2025 6:10 AM EDT 04/29/2025 10:23 AM EDT Annika Barrera MD LAB BLOOD ORDERABLES Fin al Result Performing Organization Address [facility] [address]/[facility] de Phone Number [facility] [address] [place] [address], [place] [phone] * (ABNORMAL) Complete blood count (04/29/2025 6:10 AM EDT) [facility] WBC 18.2(H) 4.8 - 10.8 K/[facility] LAB HEMETOLOGY METHOD 04/29/2025 11:39 AM EDT [facility] RBC 4.10 3.80 - 4.80 M/[facility] LAB HEMETOLOGY METHOD 04/29/2025 11:39 AM [facility] Hemoglobin 8.7(L) 11.5 - 16.0 g/dL LAB HEMETOLOGY METHOD 04/29/2025 11:39 AM [facility] Hematocrit 29.7(L) 35.0 - 47.0 % LAB HEMETOLOGY METHOD 04/29/2025 11:39 AM [facility] MCV 72.6(L) 79.0 - 98.0 FL LAB HEMETOLOGY METHOD 04/29/2025 11:39 AM [facility] MCH 21.3(L) 27.0 - 32.0 pcg LAB HEMETOLOGY METHOD 04/29/2025 11:39 AM [facility] MCHC 29.3(L) 32.0 - 37.0 g/dL LAB HEMETOLOGY METHOD 04/29/2025 11:39 AM [facility] RDW 20.4(H) 11.0 - 15.0 % LAB HEMETOLOGY METHOD 04/29/2025 11:39 AM [facility] Platelets 789(H) 130 - 400 K/mcL LAB HEMETOLOGY METHOD 04/29/2025 11:39 AM [facility] MPV 9.1 7.0 - 11.0 FL LAB HEMETOLOGY METHOD 04/29/2025 11:39 AM [facility] NRBC 0.0 <1.0 % LAB HEMETOLOGY METHOD 04/29/2025 11:39 AM [facility] NRBC Absolute 0.00 <0.10 K/mcL LAB HEMETOLOGY METHOD 04/29/2025 11:39 AM [facility] Blood Venous blood specimen / Unknown Venipuncture / Unknown 04/29/2025 6:10 AM EDT 04/29/2025 10:23 AM EDT us Annika Barrera MD LAB BLOOD ORDERABLES Fin al Result [facility] [address] [place] [address], * (ABNORMAL) Comprehensive metabolic panel (04/29/2025 6:10 AM EDT) Sodium 136 133 - 145 mmol/L LAB CHEMISTRY METHOD 04/29/2025 12:49 PM [facility] Potassium 5.0 3.5 - 5.5 mmol/L LAB CHEMISTRY METHOD 04/29/2025 12:49 PM [facility] Chloride 103 96 - 110 mmol/L LAB CHEMISTRY METHOD 04/29/2025 12:49 PM [facility] CO2 24 21 - 32 mmol/L LAB CHEMISTRY METHOD 04/29/2025 12:49 PM [facility] Anion Gap 9 3 - 11 LAB CHEMISTRY METHOD 04/29/2025 12:49 PM [facility] Glucose 55(L) 70 - 100 mg/dL LAB CHEMISTRY METHOD 04/29/2025 12:49 PM [facility] BUN 9 5 - 25 mg/dL LAB CHEMISTRY METHOD 04/29/2025 12:49 PM [facility] Creatinine 0.48(L) 0.50 - 1.10 mg/dL LAB CHEMISTRY METHOD 04/29/2025 12:49 PM [facility] eGFR 94 >=60 mL/min/1. 73m2 LAB CHEMISTRY METHOD 04/29/2025 12:49 PM [facility] Comment:Calculation based on the Chronic Kidney Disease Epidemiology Collaboration (CKD-EPI) equation refit without adjustment for race. BUN/Creatinine Ratio 18.8 LAB CHEMISTRY METHOD 04/29/2025 12:49 PM [facility] Calcium 7.9(L) 8.5 - 10.5 mg/dL LAB CHEMISTRY METHOD 04/29/2025 12:49 PM EDT [facility] AST (SGOT) 19 10 - 42 unit/L LAB CHE[facility]STR[facility] ALT (SGPT) 10 10 - 60 unit/L LAB CHEMISTRY METHOD 04/29/2025 12:49 PM EDT [facility] Alkaline Phosphatase 90 42 - 121 unit/L LAB CHEMISTRY METHOD 04/29/2025 12:49 PM EDT [facility] Total Protein 4.7(L) 6.0 - 8.0 g/dL LAB CHEMISTRY METHOD 04/29/2025 12:49 PM EDT [facility] Albumin 2.2(L) 3.2 - 5.0 g/dL LAB CHEMISTRY METHOD 04/29/2025 12:49 PM [facility] Total Bilirubin 0.2 0.0 - 1.4 mg/dL LAB CHEMISTRY METHOD 04/29/2025 12:49 PM T [facility] Blood Venous blood specimen / Unknown Venipuncture / Unknown 04/29/2025 6:10 AM EDT 04/29/2025 10:23 AM EDT Annika Barrera MD LAB BLOOD ORDERABLES Fin al Result Performing Organization Address City/State/[facility] Co de Phone Number [facility] [address] [place] [address], * Debridement Venous Ulcer (Cluster ) Left;Medial;Distal;Lower Leg (04/02/2025 9:30 AM EDT) Narrative Bandar Mckeon MD - 04/02/2025 9:30 AM EDT GERARD Ordonez 04/02/2025 10:08 AM Debridement Venous Ulcer (Cluster ) Left;Medial;Distal;Lower Leg Performed by: GERARD Ordonez Authorized by: GERARD Ordonez Associated wounds: Wound Venous Ulcer 01/29/25 Leg Left;Medial;Distal;Lower Consent: Consent obtained: Verbal Consent given by: Patient Risks discussed: Yes Time out: Immediately prior to the procedure a time out was called Debridement Details: Performed by: GERARD Type: surgical Level: subcutaneous tissue Pain control: Lidocaine 4% Severity of Tissue Pre Debridement: Fat layer exposed Severity of Tissue Post Debridement: Fat layer exposed Time taken: 04/02/2025 9:42 AM Length (cm): 7 (Cluster of 5) Width (cm): 7.3 Depth (cm): 0.2 Area (cm^2): 51.1 Time taken: 04/02/2025 9:43 AM Length (cm): 7 Width (cm): 7.3 Depth (cm): 0.2 Percent Debrided (%): 75 Surface Area (cm^2): 51.1 Area Debrided (cm^2): 38.33 Volume (cm^3): 10.22 Tissue and other material debrided: dermis, epidermis and subcutaneous tissue Devitalized tissue debrided: biofilm and slough Instrument: Curette Amount of bleeding: none Hemostasis obtained with: Not applicable Procedural pain: 0 Post-procedural pain: 0 Response to treatment: Procedure was tolerated well us Romeo GEE IN CLINIC/BEDSIDE ORDERABLE S Final Result * Debridement Venous Ulcer Left;Medial;Proximal;Lower Leg (04/02/2025 9:30 AM EDT) Bandar Schmidt MD - 04/02/2025 9:30 AM EDT GERARD Ordonez 04/02/2025 10:08 AM Debridement Venous Ulcer Left;Medial;Proximal;Lower Leg Performed by: GERARD Ordonez Authorized by: GERARD Ordonez Associated wounds: Wound Venous Ulcer 01/29/25 Leg Left;Medial;Proximal;Lower Consent: Consent obtained: Verbal Consent given by: Patient Risks discussed: Yes Time out: Immediately prior to the procedure a time out was called Debridement Details: Performed by: GERARD Type: surgical Level: subcutaneous tissue Pain control: Lidocaine 4% Severity of Tissue Pre Debridement: Fat layer exposed Severity of Tissue Post Debridement: Fat layer exposed Time taken: 04/02/2025 9:41 AM Length (cm): 2 Width (cm): 1 Depth (cm): 0.1 Area (cm^2): 2 Time taken: 04/02/2025 9:42 AM Length (cm): 2 Width (cm): 1 Depth (cm): 0.1 Percent Debrided (%): 75 Surface Area (cm^2): 2 Area Debrided (cm^2): 1.5 Volume (cm^3): 0.2 Tissue and other material debrided: dermis, epidermis and subcutaneous tissue Devitalized tissue debrided: biofilm and slough Instrument: Curette Amount of bleeding: none Hemostasis obtained with: Not applicable Procedural pain: 0 Post-procedural pain: 0 Response to treatment: Procedure was tolerated well us Romeo GEE IN CLINIC/BEDSIDE ORDERABLE S Final Result * Debridement Venous Ulcer (Cluster ) Left;Medial;Distal;Lower Leg (03/26/2025 11:15 AM EDT) Bandar Schmidt MD - 03/26/2025 11:15 AM EDT GERARD Ordonez 03/26/2025 12:01 PM Debridement Venous Ulcer (Cluster ) Left;Medial;Distal;Lower Leg Performed by: GERARD Ordonez Authorized by: GERARD Ordonez Associated wounds: Wound Venous Ulcer 01/29/25 Leg Left;Medial;Distal;Lower Consent: Consent obtained: Verbal Consent given by: Patient Risks discussed: Yes Time out: Immediately prior to the procedure a time out was called Debridement Details: Performed by: GERARD Type: surgical Level: subcutaneous tissue Pain control: Lidocaine 4% Severity of Tissue Pre Debridement: Fat layer exposed Severity of Tissue Post Debridement: Fat layer exposed Time taken: 03/26/2025 11:28 AM Length (cm): 7.4 (Cluster of 3) Width (cm): 6.3 Depth (cm): 0.2 Area (cm^2): 46.62 Time taken: 03/26/2025 11:29 AM Length (cm): 7.4 Width (cm): 6.3 Depth (cm): 0.2 Percent Debrided (%): 50 Surface Area (cm^2): 46.62 Area Debrided (cm^2): 23.31 Volume (cm^3): 9.32 Tissue and other material debrided: dermis, epidermis and subcutaneous tissue Devitalized tissue debrided: biofilm and slough Instrument: Curette Amount of bleeding: none Hemostasis obtained with: Not applicable Procedural pain: 0 Post-procedural pain: 0 Response to treatment: Procedure was tolerated well us Romeo GEE IN CLINIC/BEDSIDE ORDERABLE S Final Result * Debridement Venous Ulcer Left;Medial;Proximal;Lower Leg (03/26/2025 11:15 AM EDT) Bandar Schmidt MD - 03/26/2025 11:15 AM EDT GERARD Ordonez 03/26/2025 12:01 PM Debridement Venous Ulcer Left;Medial;Proximal;Lower Leg Performed by: GERARD Ordonez Authorized by: GERARD Ordonez Associated wounds: Wound Venous Ulcer 01/29/25 Leg Left;Medial;Proximal;Lower Consent: Consent obtained: Verbal Consent given by: Patient Risks discussed: Yes Time out: Immediately prior to the procedure a time out was called Debridement Details: Performed by: GERARD Type: surgical Level: subcutaneous tissue Pain control: Lidocaine 4% Severity of Tissue Pre Debridement: Fat layer exposed Severity of Tissue Post Debridement: Fat layer exposed Time taken: 03/26/2025 11:27 AM Length (cm): 1.7 Width (cm): 1 Depth (cm): 0.1 Area (cm^2): 1.7 Time taken: 03/26/2025 11:28 AM Length (cm): 1.7 Width (cm): 1 Depth (cm): 0.1 Percent Debrided (%): 100 Surface Area (cm^2): 1.7 Area Debrided (cm^2): 1.7 Volume (cm^3): 0.17 Tissue and other material debrided: dermis, epidermis and subcutaneous tissue Devitalized tissue debrided: biofilm and slough Instrument: Curette Amount of bleeding: none Hemostasis obtained with: Not applicable Procedural pain: 0 Post-procedural pain: 0 Response to treatment: Procedure was tolerated well us Rmoeo GEE IN CLINIC/BEDSIDE ORDERABLE S Final Result * Debridement Venous Ulcer (Cluster ) Left;Medial;Distal;Lower Leg (03/19/2025 3:00 PM EDT) Bandar Schmidt MD - 03/19/2025 3:00 PM EDT GERARD Ordonez 03/19/2025 4:08 PM Debridement Venous Ulcer (Cluster ) Left;Medial;Distal;Lower Leg Performed by: GERARD Ordonez Authorized by: GERARD Ordonez Associated wounds: Wound Venous Ulcer 01/29/25 Leg Left;Medial;Distal;Lower Consent: Consent obtained: Verbal Consent given by: Patient Risks discussed: Yes Time out: Immediately prior to the procedure a time out was called Debridement Details: Performed by: GERARD Type: surgical Level: subcutaneous tissue Pain control: Lidocaine 4% Severity of Tissue Pre Debridement: Fat layer exposed Severity of Tissue Post Debridement: Fat layer exposed Time taken: 03/19/2025 3:35 PM Length (cm): 6 Width (cm): 6 Depth (cm): 0.2 Area (cm^2): 36 Time taken: 03/19/2025 3:36 PM Length (cm): 6 Width (cm): 6 Depth (cm): 0.2 Percent Debrided (%): 75 Surface Area (cm^2): 36 Area Debrided (cm^2): 27 Volume (cm^3): 7.2 Tissue and other material debrided: dermis, epidermis and subcutaneous tissue Devitalized tissue debrided: biofilm and slough Instrument: Curette Amount of bleeding: none Hemostasis obtained with: Not applicable Procedural pain: 0 Post-procedural pain: 0 Response to treatment: Procedure was tolerated well us Romeo GEE IN CLINIC/BEDSIDE ORDERABLE S Final Result * Debridement Venous Ulcer Left;Medial;Proximal;Lower Leg (03/19/2025 3:00 PM EDT) Bandar Schmidt MD - 03/19/2025 3:00 PM EDT GERARD Ordonez 03/19/2025 4:08 PM Debridement Venous Ulcer Left;Medial;Proximal;Lower Leg Performed by: GERARD Ordonez Authorized by: GERARD Ordonez Associated wounds: Wound Venous Ulcer 01/29/25 Leg Left;Medial;Proximal;Lower Consent: Consent obtained: Verbal Consent given by: Patient Risks discussed: Yes Time out: Immediately prior to the procedure a time out was called Debridement Details: Performed by: GERARD Type: surgical Level: subcutaneous tissue Pain control: Lidocaine 4% Severity of Tissue Pre Debridement: Fat layer exposed Severity of Tissue Post Debridement: Fat layer exposed Time taken: 03/19/2025 3:34 PM Length (cm): 1.5 Width (cm): 1 Depth (cm): 0.1 Area (cm^2): 1.5 Time taken: 03/19/2025 3:35 PM Length (cm): 1.5 Width (cm): 1 Depth (cm): 0.1 Percent Debrided (%): 100 Surface Area (cm^2): 1.5 Area Debrided (cm^2): 1.5 Volume (cm^3): 0.15 Tissue and other material debrided: dermis, epidermis and subcutaneous tissue Devitalized tissue debrided: biofilm and slough Instrument: Curette Amount of bleeding: none Hemostasis obtained with: Not applicable Procedural pain: 0 Post-procedural pain: 0 Response to treatment: Procedure was tolerated well us Romeo GEE IN CLINIC/BEDSIDE ORDERABLE S Final Result * Debridement Venous Ulcer (Cluster ) Left;Medial;Distal;Lower Leg (03/12/2025 10:30 AM EDT) Bandar Schmidt MD - 03/12/2025 10:30 AM EDT GERARD Ordonez 03/12/2025 11:06 AM Debridement Venous Ulcer (Cluster ) Left;Medial;Distal;Lower Leg Performed by: GERARD Ordonez Authorized by: GERARD Ordonez Associated wounds: Wound Venous Ulcer 01/29/25 Leg Left;Medial;Distal;Lower Consent: Consent obtained: Verbal Consent given by: Patient Risks discussed: Yes Time out: Immediately prior to the procedure a time out was called Debridement Details: Performed by: GERARD Type: surgical Level: subcutaneous tissue Pain control: Lidocaine 4% Severity of Tissue Pre Debridement: Fat layer exposed Severity of Tissue Post Debridement: Fat layer exposed Time taken: 03/12/2025 10:30 AM Length (cm): 6 (Cluster of 3) Width (cm): 5 Depth (cm): 0.2 Area (cm^2): 30 Time taken: 03/12/2025 10:31 AM Length (cm): 6 Width (cm): 5 Depth (cm): 0.2 Percent Debrided (%): 75 Surface Area (cm^2): 30 Area Debrided (cm^2): 22.5 Volume (cm^3): 6 Tissue and other material debrided: dermis, epidermis and subcutaneous tissue Devitalized tissue debrided: biofilm and slough Instrument: Curette Amount of bleeding: none Hemostasis obtained with: Not applicable Procedural pain: 0 Post-procedural pain: 0 Response to treatment: Procedure was tolerated well Romeo GEE IN CLINIC/BEDSIDE ORDERABLE S Final Result * Debridement Venous Ulcer Left;Medial;Proximal;Lower Leg (03/12/2025 10:30 AM EDT) Narrative Bandar Mckeon MD - 03/12/2025 10:30 AM EDT GERARD Ordonez 03/12/2025 11:06 AM Debridement Venous Ulcer Left;Medial;Proximal;Lower Leg Performed by: GERARD Ordonez Authorized by: GERARD Ordonez Associated wounds: Wound Venous Ulcer 01/29/25 Leg Left;Medial;Proximal;Lower Consent: Consent obtained: Verbal Consent given by: Patient Risks discussed: Yes Time out: Immediately prior to the procedure a time out was called Debridement Details: Performed by: GERARD Type: surgical Level: subcutaneous tissue Pain control: Lidocaine 4% Severity of Tissue Pre Debridement: Fat layer exposed Severity of Tissue Post Debridement: Fat layer exposed Time taken: 03/12/2025 10:29 AM Length (cm): 2 (Cluster of 3) Width (cm): 1.2 Depth (cm): 0.2 Area (cm^2): 2.4 Time taken: 03/12/2025 10:30 AM Length (cm): 2 Width (cm): 1.2 Depth (cm): 0.2 Percent Debrided (%): 100 Surface Area (cm^2): 2.4 Area Debrided (cm^2): 2.4 Volume (cm^3): 0.48 Tissue and other material debrided: dermis, epidermis and subcutaneous tissue Devitalized tissue debrided: biofilm and slough Instrument: Curette Amount of bleeding: none Hemostasis obtained with: Not applicable Procedural pain: 0 Post-procedural pain: 0 Response to treatment: Procedure was tolerated well Result [facility] Romeo GEE IN CLINIC/BEDSIDE ORDERABLE S Final Result * Debridement Venous Ulcer Left;Medial;Proximal;Lower Leg (03/05/2025 11:00 AM EDT) Narrative Bandar Mckeon MD - 03/05/2025 11:00 AM EDT GERARD Ordonez 03/05/2025 11:30 AM Debridement Venous Ulcer Left;Medial;Proximal;Lower Leg Performed by: GERARD Ordonez Authorized by: GERARD Ordonez Associated wounds: Wound Venous Ulcer 01/29/25 Leg Left;Medial;Proximal;Lower Consent: Consent obtained: Verbal Consent given by: Patient Risks discussed: Yes Time out: Immediately prior to the procedure a time out was called Debridement Details: Performed by: GERARD Type: surgical Level: subcutaneous tissue Pain control: Lidocaine 4% Severity of Tissue Pre Debridement: Fat layer exposed Severity of Tissue Post Debridement: Fat layer exposed Time taken: 03/05/2025 11:07 AM Length (cm): 3 (Cluster of 3) Width (cm): 0.9 Depth (cm): 0.2 Area (cm^2): 2.7 Time taken: 03/05/2025 11:08 AM Length (cm): 3 Width (cm): 0.9 Depth (cm): 0.2 Percent Debrided (%): 100 Surface Area (cm^2): 2.7 Area Debrided (cm^2): 2.7 Volume (cm^3): 0.54 Tissue and other material debrided: dermis, epidermis and subcutaneous tissue Devitalized tissue debrided: biofilm, exudate, fibrin and slough Instrument: Curette Amount of bleeding: none Hemostasis obtained with: Not applicable Procedural pain: 0 Post-procedural pain: 0 Response to treatment: Procedure was tolerated well Romeo GEE IN CLINIC/BEDSIDE ORDERABLE S Final Result * Debridement Venous Ulcer (Cluster ) Lower;Left;Medial;Distal Leg (03/05/2025 11:00 AM EDT) Banadr Schmidt MD - 03/05/2025 11:00 AM EDT GERARD Ordonez 03/05/2025 11:30 AM Debridement Venous Ulcer (Cluster ) Lower;Left;Medial;Distal Leg Performed by: GERARD Ordonez Authorized by: GERARD Ordonez Associated wounds: Wound Venous Ulcer 01/29/25 Leg Lower;Left;Medial;Distal Consent: Consent obtained: Verbal Consent given by: Patient Risks discussed: Yes Time out: Immediately prior to the procedure a time out was called Debridement Details: Performed by: GERARD Type: surgical Level: subcutaneous tissue Pain control: Lidocaine 4% Severity of Tissue Pre Debridement: Fat layer exposed Severity of Tissue Post Debridement: Fat layer exposed Time taken: 03/05/2025 11:08 AM Length (cm): 6 (Cluster of 3) Width (cm): 3.6 Depth (cm): 0.2 Area (cm^2): 21.6 Time taken: 03/05/2025 11:09 AM Length (cm): 6 Width (cm): 3.6 Depth (cm): 0.2 Percent Debrided (%): 100 Surface Area (cm^2): 21.6 Area Debrided (cm^2): 21.6 Volume (cm^3): 4.32 Tissue and other material debrided: dermis, epidermis and subcutaneous tissue Devitalized tissue debrided: biofilm, exudate, fibrin and slough Instrument: Curette Amount of bleeding: none Hemostasis obtained with: Not applicable Procedural pain: 0 Post-procedural pain: 0 Response to treatment: Procedure was tolerated well Romeo GEE IN CLINIC/BEDSIDE ORDERABLE S Final Result * (ABNORMAL) Lipid panel with reflex to direct LDL (10/12/2024 12:52 PM EST) Cholesterol 214(H) 0 - 200 mg/dL LAB CHEMISTRY METHOD 10/12/2024 4:52 PM [facility] Triglycerides 74 0 - 150 mg/dL LAB CHEMISTRY METHOD 10/12/2024 4:52 PM [facility] HDL 70 >=40 mg/dL LAB CHEMISTRY METHOD 10/12/2024 4:52 PM [facility] LDL Calculated 129(H) 0 - 100 mg/dL LAB CHEMISTRY METHOD 10/12/2024 4:52 PM [facility] VLDL Cholesterol Jareth 14.8 mg/dL LAB CHEMISTRY METHOD 10/12/2024 4:52 PM [facility] Non HDL Chol. (LDL+VLDL) 144 <145 mg/dL LAB CHEMISTRY METHOD 10/12/2024 4:52 PM [facility] Chol/HDL Ratio 3.1 0.0 - 4.4 LAB CHEMISTRY METHOD 10/12/2024 4:52 PM [facility] Blood Venous blood specimen / Unknown Venipuncture / Unknown 10/12/2024 12:52 PM EST 10/12/2024 12:52 PM EST [place] GEE LAB BLOOD ORDERABLES Fi nal Result [facility] [address] [place] [address], * DXA BONE DENSITY STUDY 1+ SITS AXIAL SKEL (02/02/2022 1:52 PM EDT) Anatomical Region Laterality Modality Bone Densitometr y 12/08/2021 5:09 PM EDT Narrative 02/02/2022 6:21 PM EDT Clinical history: menopausal/postmenopausal disorder Scans of the lumbar spine and hips were performed on a [employer] fan beam bone densitometer. Bone mineral density measurements and associated T and Z scores respectively are as follows: Lumbar Spine: L1-L4 BMD: 0.967 g/cm2 T-Score: -0.7 Z-Score: 2.0 Compared with the prior study dated 11/01/2020, the BMD reading has decreased which is statistically significant Left Proximal Femur: Neck BMD: 0.691 g/cm2 T-Score: -1.4 Z-Score: 0.9 Total BMD: 0.867 g/cm2 T-Score: -0.6 Z-Score: 1.5 Compared with the prior study the mean BMD reading in the total left hip has decreased which is statistically significant Compared with standards for the young adult, lowest measured bone density places the patient in the W.H.O. osteopenic range. FRAX 10 year probability of major osteoporotic fracture: 13% FRAX 10 year probability of hip fracture: 3% Population: [place] () IMPRESSION: IMPRESSION: Osteopenia. The NOF guidelines recommend that FDA approved medical therapies be considered in postmenopausal women and men age >50 years with a: i. Hip or vertebral (clinical or morphometric) fracture ii. T score of < -2.5 at the spine or hip iii. 10 year fracture probability by FRAX of >3% for hip fracture, or >20% for major osteoporotic fracture PLEASE NOTE: W.H.O. classification is based on lowest measured density at the spine, femoral neck, or total hip.This classification has prognostic significance when applied to post menopausal women and older men. 1) The World Health Organization defines low BMD as follows: T-score Normal at or > -1 Osteopenia < -1 and > -2.5 Osteoporosis at or < -2.5 without fractures Established osteoporosis < -2.5 with fractures Procedure Note Michelle Brandon MD - 08/31/2022 Clinical history: menopausal/postmenopausal disorder Scans of the lumbar spine and hips were performed on a Cuídatefan beam bone densitometer. Bone mineral density measurements and associated T and Z scoresrespectively are as follows: Lumbar Spine: L1-L4 BMD: 0.967 g/cm2 T-Score: -0.7 Z-Score: 2.0 Compared with the prior study dated 11/01/2020, the BMD reading hasdecreased which is statistically significant Left Proximal Femur: Neck BMD: 0.691 g/cm2 T-Score: -1.4 Z-Score: 0.9 Total BMD: 0.867 g/cm2 T-Score: -0.6 Z-Score: 1.5 Compared with the prior study the mean BMD reading in the total left hiphas decreased which is statistically significant Compared with standards for the young adult, lowest measured bone densityplaces the patient in the W.H.O. osteopenic range. FRAX 10 year probability of major osteoporotic fracture: 13% FRAX 10 year probability of hip fracture: 3% Population: [place] () IMPRESSION: IMPRESSION: Osteopenia. The NOF guidelines recommend that FDA approved medical therapies beconsidered in postmenopausal women and men age >50 years with a: i. Hip or vertebral (clinical or morphometric) fracture ii. T score of < -2.5 at the spine or hip iii. 10 year fracture probability by FRAX of >3% for hip fracture, or >20%for major osteoporotic fracture PLEASE NOTE: W.H.O. classification is based on lowest measured density at the spine,femoral neck, or total hip.This classification has prognostic significance when applied to postmenopausal women and older men. 1) The World Health Organization defines low BMD as follows: T-score Normal at or > -1 Osteopenia < -1 and > -2.5 Osteoporosis at or < -2.5 withoutfractures Established osteoporosis < -2.5 with fractures us Ghulam Acevedo MD IMG DXA PROCEDURES Final Result from Last 3 Months or Most Recently Relevant to Health Maintenance Additional Health Concerns Active Problems Noted Date Diagnosed Date Impaired Tissue 01/29/2025 Education needed on impact of smoking on wound 0 01/29/2025 Education needed related to ulceration/compromised skin integrity. 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 Health Care Decision (hx) 06/01/2022 AD BERMAN DIRECTIVE Health Care Decision (hx) 06/01/2022 AD BERMAN DIRECTIVE Health Care Decision (hx) 06/01/2022 AD BERMAN DIRECTIVE Health Care Decision (hx) 06/01/2022 AD BERMAN DIRECTIVE Health Care Decision (hx) 06/01/2022 AD BERMAN DIRECTIVE Health Care Decision (hx) 06/01/2022 AD BERMAN DIRECTIVE Health Care Decision (hx) 06/01/2022 AD BERMAN DIRECTIVE Health Care Decision (hx) 06/01/2022 AD BERMAN DIRECTIVE Health Care Decision (hx) 06/01/2022 AD BERMAN DIRECTIVE Care Teams Medical Facilities Section Director Relationship Specialty Start Date End Date Ghulam Acevedo MD [address] [place] [phone] PCP - General Internal Medicine 05/27/21
--- OUTSIDE RECORDS SUMMARY | 2025-05-31 11:24 | XMS_ITS | Encounter Summary ---
Author Organization [facility] Address [address] [place] [address] Phone Care Team Providers Care Manager Environmental Health Name Role Phone Maine Vincent MD Primary Care Pro vider Encounter Details Date Type Department Care Team (Late st Contact Info) Description 12/30/2020 Ancillary Orders Alistair Gan MD [address] [facility] [address] [place] [address] Alistair Gan MD [address] [place] [address] [email or web address] Aftercare following right knee joint replacement surgery; Primary osteoarthritis of left knee Social History Tobacco Use Types Packs/Day Years [...] on file documented as of this encounter Results * XR KNEE 3 VIEW (RIGHT) (12/30/2020 10:56 AM EDT) Anatomical Region Laterality Modality Knee Right Computed Radiogr aphy 12/30/2020 11:2 2 AM EDT Impressions 12/30/2020 11:24 AM EDT Right total knee arthroplasty with no evidence of hardware complication. Mild degenerative changes of the left knee, not significantly changed since 2019. Narrative 12/30/2020 11:24 AM EDT TECHNIQUE: XR KNEE 3 VIEW (LEFT), XR KNEE 3 VIEW (RIGHT) COMPARISON: Bilateral knee radiographs from 03/06/2020 FINDINGS: Right knee: There is a right total knee arthroplasty in anatomic alignment. No fracture or dislocation. No evidence of loosening. No substantial joint effusion. Quadriceps enthesopathy. Left knee: There are mild medial tibiofemoral and patellofemoral compartment predominant tricompartmental degenerative changes of the left knee. No substantial joint effusion. No acute fracture or dislocation. Quadriceps enthesopathy. Procedure Note Kevin Daniel MD - 12/30/2020 TECHNIQUE: XR KNEE 3 VIEW (LEFT), XR KNEE 3 VIEW (RIGHT) COMPARISON: Bilateral knee radiographs from 03/06/2020 FINDINGS: Right knee: There is a right total knee arthroplasty in anatomicalignment. No fracture or dislocation. No evidence of loosening. Nosubstantial joint effusion. Quadriceps enthesopathy. Left knee: There are mild medial tibiofemoral and patellofemoralcompartment predominant tricompartmental degenerative changes of the leftknee. No substantial joint effusion. No acute fracture or dislocation.Quadriceps enthesopathy. IMPRESSION: Right total knee arthroplasty with no evidence of hardware complication. Mild degenerative changes of the left knee, not significantly changedsince 2019. us Alistair Gan MD IMG XR LOWER EXTREMITY F inal Result * XR KNEE 3 VIEW (LEFT) (12/30/2020 10:56 AM EDT) Anatomical Region Laterality Modality Knee Left Computed Radiogr aphy 12/30/2020 11:2 2 AM EDT Impressions 12/30/2020 11:24 AM EDT Right total knee arthroplasty with no evidence of hardware complication. Mild degenerative changes of the left knee, not significantly changed since 2019. Narrative 12/30/2020 11:24 AM EDT TECHNIQUE: XR KNEE 3 VIEW (LEFT), XR KNEE 3 VIEW (RIGHT) COMPARISON: Bilateral knee radiographs from 03/06/2020 FINDINGS: Right knee: There is a right total knee arthroplasty in anatomic alignment. No fracture or dislocation. No evidence of loosening. No substantial joint effusion. Quadriceps enthesopathy. Left knee: There are mild medial tibiofemoral and patellofemoral compartment predominant tricompartmental degenerative changes of the left knee. No substantial joint effusion. No acute fracture or dislocation. Quadriceps enthesopathy. Procedure Note Kevin Daniel MD - 12/30/2020 TECHNIQUE: XR KNEE 3 VIEW (LEFT), XR KNEE 3 VIEW (RIGHT) COMPARISON: Bilateral knee radiographs from 03/06/2020 FINDINGS: Right knee: There is a right total knee arthroplasty in anatomicalignment. No fracture or dislocation. No evidence of loosening. Nosubstantial joint effusion. Quadriceps enthesopathy. Left knee: There are mild medial tibiofemoral and patellofemoralcompartment predominant tricompartmental degenerative changes of the leftknee. No substantial joint effusion. No acute fracture or dislocation.Quadriceps enthesopathy. IMPRESSION: Right total knee arthroplasty with no evidence of hardware complication. Mild degenerative changes of the left knee, not significantly changed2019. Alistair Gan MD IMG XR LOWER EXTREMITY F inal Result documented in this encounter Visit Diagnoses Diagnosis Aftercare following right knee joint replacement surgery Primary osteoarthritis of left knee Aftercare following right knee joint replacement surgery Primary osteoarthritis of left knee Aftercare following right knee joint replacement surgery Primary osteoarthritis of left knee documented in this encounter Care Teams Manager Environmental Health Relationship Specialty Start Date End Date Maine Vincent MD [address] [place] [address] PCP - General Internal Medicine 01/22/19 documented as of this encounter Additional Source Comments The information contained in this document represents components of the legal health record. It is not the complete legal health record.[facility]
--- OUTSIDE RECORDS SUMMARY | 2025-05-31 11:24 | XMS_ITS | Encounter Summary ---
Author Organization [facility] Address [address] [place] [address] Care Team Providers Care Wire Taper Name Role Phone Ghulam Acevedo MD Primary Care Provider [phone] Reason for Visit * Reason Onset Date Comments Clearance to Drive 05/16/2025 Encounter Details Date Type Department Care Team ([facility] st Contact Info) Description 05/16/2025 Telephone [facility] [address] [facility] [address] [place] [address] Azucena Soriano MD [address] [place] [address] [place] [address] Social History Tobacco Use Types Packs/Day Years [...] as of this encounter Progress Notes * Sacha Garcia - 05/31/2025 10:15 AM EDT Patient came by office and dropped off paperwork to be filled out by Dr. Soriano to get her drivers license back, she had a pacemaker put in by Dr. Soriano. Informed patient about office policy of 7-10 business days for paperwork, best number to reach her at is [phone] with any questions. Patient would like it mailed to her address of [address] [place] [address], [phone]. Placed in Ok's box for review. * Ok Musa MA - 05/30/2025 4:14 PM EDT For the record, I do not have any correspondence regarding the form. * Ok Musa MA - 05/30/2025 4:11 PM EDT I called patient I advised her to contact Arvind Nelson's office for review the requested form. * Lance Cochran - 05/30/2025 2:48 PM EDT Patient had a pace maker placed by Dr. Soriano at [facility] per his note patient to follow up with [facility] Electrophysiology. Patient is to follow up with Dr. Nelson. He had a letter for her, but patient states Dr. Soriano needs to fill out a form since he did the surgery. Please inform patient if thisform can be filled out. She can be reached at [phone] * Katiana Velazquez - 05/20/2025 10:41 AM EDT Patient called back again and stated she still hadn't received the form or note needed to be able to drive. She was informed to contact [facility] Cardiology again. FYI, per Dr. Soriano's procedure note from [facility] on April 25, patient will follow up with [facility] electrophysiology/cardiology- . * Katiana Velazquez - 05/16/2025 1:47 PM EDT Patient called and stated she would like medical clearance to drive. She was informed to contact [facility] cardiology. documented in this encounter Plan of Treatment Upcoming Encounters Date Type Department Care Team (Late st Contact Info) Description 07/22/2025 11:00 AM EST Office Visit [facility] Hematology Oncology [address] [place] [phone] Elo Onofre MD [address] [place] [address] 09/25/2025 11:00 AM EST Office Visit Adult Medicine [facility] [address] [place] [address] Ghulam Acveedo MD [address] [place] [address] documented as of this encounter Goals Goal Patient Goal Type Associated Problems Recent Progress Patient-Stated? Author Decrease Wound Volume by X% by date (in notes) Care Plan Impaired Tissue On track( 11:15 AM EDT) Calista Vidal RN Patient [...] documented as of this encounter Care Teams Wire Taper Relationship Specialty Start Date End Date Ghulam Acevedo MD [address] [place] [phone] PCP - General Internal Medicine 05/27/21 documented as of this encounter
--- OUTSIDE RECORDS SUMMARY | 2025-05-31 11:24 | XMS_ITS | Encounter Summary ---
Author Organization [facility] Address [address] [place] [address] Care Team Providers Care Barrel Line Operator Name Role Phone Ghulam Acevedo MD Primary Care Provider [phone] Encounter Details Date Type Department Care Team ([facility] st Contact Info) Description 05/09/2025 Lab Requisition [facility] - Main Lab [address] [facility] [place] [address] Annika Barrera MD [address] [address] Dysuria Social History Tobacco Use Types Packs/Day Years [...] Description 07/22/2025 11:00 AM EST Office Visit [facility] Hematology Oncology [address] [place] [phone] Elo Onofre MD [address] [place] [address] 09/25/2025 11:00 AM EST Office Visit Adult [address] [phone] Ghulam Acevedo MD [address] [place] [address] documented as of this encounter Goals Goal [...] Procedure Name Priority Date/Time Associated Diagnosis Comments URINALYSIS WITH REFLEX MICROSCOPIC Routine 05/08/2025 10:00 PM EDT Dysuria URINALYSIS WITH REFLEX MICROSCOPIC Routine 05/08/2025 10:00 PM EDT Dysuria CULTURE URINE Routine 05/08/2025 10:00 PM EDT Dysuria documented in this encounter Results * Urinalysis with reflex microscopic (05/08/2025 10:00 PM EDT) Specific [place] Urine 1.024 1.003 - 1.030 LAB URINALYSIS - AUTOMATED METHOD 05/09/2025 12:19 PM EDT [facility] LAB pH, Urine 6.0 5.0 - 8.0 pH LAB URINALYSIS - AUTOMATED METHOD 05/09/2025 12:19 PM T [facility] LAB Leukocytes, Urine Negative Negative LAB URINALYSIS - AUTOMATED METHOD 05/09/2025 12:19 PM T [facility] Nitrite, Urine Negative Negative LAB URINALYSIS - AUTOMATED METHOD 05/09/2025 12:19 PM EDT [facility] Protein, Urine Negative <=Trace mg/dL LAB URINALYSIS - AUTOMATED METHOD 05/09/2025 12:19 PM EDT [facility] Glucose, Urine Negative Negative mg/dL LAB URINALYSIS - AUTOMATED METHOD 05/09/2025 12:19 PM EDT [facility] Ketones, Urine Negative Negative mg/dL LAB URINALYSIS - AUTOMATED METHOD 05/09/2025 12:19 PM EDT [facility] Urobilinogen, Urine 0.2 0.2 - 1.0 mg/dL LAB URINALYSIS - AUTOMATED METHOD 05/09/2025 12:19 PM EDT [facility] Bilirubin, Urine Negative Negative LAB URINALYSIS - AUTOMATED METHOD 05/09/2025 12:19 PM EDT [facility] Blood, Urine Negative Negative LAB URINALYSIS - AUTOMATED METHOD 05/09/2025 12:19 PM EDT [facility] Urine Urine specimen obtained by clean catch procedure / Unknown 05/08/2025 10:00 PM EDT 05/09/2025 12:07 PM EDT us Annika Barrera MD LAB URINE ORDERABLES Fin al Result [facility] [address] [place] [address], * Culture urine (05/08/2025 10:00 PM EDT) Culture, Urine No growth 05/10/2025 9:17 AM EDT [facility] Urine Urine specimen obtained by clean catch procedure / Unknown 05/08/2025 10:00 PM EDT 05/09/2025 12:07 PM EDT us Annika Barrera MD LAB MICROBIOLOGY - GENER AL ORDERABLES Final Result [facility] [address] [place] [address], documented in this encounter Visit Diagnoses Diagnosis Dysuria documented in this encounter Additional Health Concerns [...] documented as of this encounter Care Teams Barrel Line Operator Relationship Specialty Start Date End Date Ghulam Acevedo MD [address] [place] [phone] PCP - General Internal Medicine 05/27/21 documented as of this encounter
--- OUTSIDE RECORDS SUMMARY | 2025-05-31 11:24 | XMS_ITS | Encounter Summary ---
Author Organization [facility] Address [address] [facility] [address] [place] [address] Phone Care Team Providers Care Robotic Machine Tender Production Name Role Phone Maine Vincent MD Primary Care Pro vider Encounter Details Date Type Department Care Team (Late st Contact Info) Description 11/12/2019 Procedure Pass [facility] PERIOPERATIVE DEPT [address] [place] [phone] Social History Tobacco Use Types Packs/Day Years [...] on filedocumented in this encounter Care Teams Robotic Machine Tender Production Relationship Specialty Start Date End Date Maine Vincent MD [address] [facility] [place] [place] [address] PCP - General Internal Medicine 01/22/19 documented as of this encounter Additional Source Comments The information contained in this document represents components of the legal health record. It is not the complete legal health record.[facility]
== END 2025-05-31 11:12 | disposition home or self-care (01) ==
PROVIDERS: PCP Internal Medicine; Visit Provider Surgery
DX: C50.912 Malignant neoplasm of unspecified site of left female breast (principal)
CPT/HCPCS: 99213; G2211

== ENCOUNTER → 2025-05-31 10:45 | Outpatient (BNVA) | payer MEDICARE, SELFPAY | PROVIDERS: PCP Internal Medicine; Visit Provider Surgery | DX: Z85.3 Personal history of malignant neoplasm of breast (principal) | CPT/HCPCS: 99212 ==